=== PATIENT | female | born 1935 | race Caucasian/White ===

== ENCOUNTER 2018-01-05 19:16 | Inpatient (IN) | payer MEDICARE, OTHER, SELFPAY ==
[2018-01-05] VITALS (7 sets, daily range): BP systolic 98–151; BP diastolic 65–77; PULSE 82–98; RESP 18–40; TEMP 36.8–37.5; O2SAT 88–95; BMI 27.4
--- NOTE | 2018-01-05 19:52 | EKG12_ITS ---
Test Reason : SOB Blood Pressure : / mmHG Vent. Rate : 097 BPM Atrial Rate : 097 BPM P-R Int : 136 ms QRS Dur : 076 ms QT Int : 366 ms P-R-T Axes : 010 036 049 degrees QTc Int : 464 ms Normal sinus rhythm Nonspecific ST and T wave abnormality Abnormal ECG Confirmed by NI DAILY, SNEHA ([id number]), book or script editor CLYDE ESTEVES ([id number]) on 01/08/2018 1:10:24 PM Referred By: MARZENA Confirmed By:SNEHA DAN MD
[2018-01-05] MEDS: Ipratropium/Albuterol Sulfate 3 ML AMPUL.NEB INHALATION (20:07)
[2018-01-05] MEDS: Benzonatate 100 MG Capsule 200 MG PO (20:20)
[2018-01-05] MEDS: MethylPREDNISolone 125 MG/2 ML Vial IV (20:20)
[2018-01-05] MEDS: 0.9% Normal Saline 1,000 ML 150 ML IV (20:20)
[2018-01-05 20:36] LABS: Absolute Lymphocyte Count 1.46 X10^3/ul (0.83-4.51); Absolute Neutrophil Count 6.6 X10^3/uL (2.0-7.7); Basophil# 0.02 X10^3/uL; Basophil% 0.2 % (0-1); Eosinophil# 0.12 X10^3/uL; Eosinophils% 1.2 % (0-5); Hematocrit 37.8 % (37-47); Hemoglobin 12.8 g/dl (12.0-15.0); Lymphocyte # 1.46 X10^3/ul (4.0); Lymphocyte % 15.1 % (19-41); Mean Corp Hgb Conc 33.9 g/gl (32-36); Mean Corpuscular Hgb 30.3 pg (27.0-32.0); Mean Corpuscular Volume 89.4 fL (81-99); Mean Platelet Vol. 9.7 fl (6.2-12.0); Monocyte# 1.35 X10^3/uL; Neutrophil # 6.61 X10^3/uL (2.7-7.7); Neutrophil % 68.6 % (47-70); Platelet Count 215 K/mm3 (150-450); RBC Distribution Width CV 12.8 % (11.6-14.6); RBC Distribution Width SD 41.4 fl (35.1-43.9); Red Blood Count 4.23 M/mm3 (4.2-5.4); White Blood Count 9.7 K/mm3 (4.4-11.0)
[2018-01-05 20:39] LABS: POSITIVE COUNT NO; POSITIVE DIFFERENTIAL NO; POSITIVE MORPHOLOGY NO
[2018-01-05 20:55] LABS: Anion Gap 12 (5-15); BUN 24 mg/dL (7-18); BUN/Creat Ratio 15.8 RATIO (10-20); Calcium,Total 8.3 mg/dL (8.5-10.1); Chloride 103 mmol/L (98-107); Creatinine, Serum 1.52 mg/dL (0.55-1.02); EST Glomerular Filtration Rate 35 mL/min (>60); Est Glom Filt Rate - Afr Amer 42 mL/min (>60); Estimated Creatinine Clearance 23.35 ml/min; Glucose 157 mg/dL (74-106); Potassium 3.7 mmol/L (3.5-5.1); Sodium Level 138 mmol/L (136-145)
--- NOTE | 2018-01-05 20:55 | RAD_ITS ---
STUDY: X-RAY CHEST REASON FOR EXAM: Female, 82 years old. Cough, shortness of breath TECHNIQUE: Frontal and lateral views of the chest were obtained. COMPARISON: August 21, 2017 FINDINGS: The lungs are underaerated. There are small benign calcified granulomas in the left apex. There are no focal airspace opacities. There is no demonstrated pleural abnormality. The cardiac silhouette is normal in size. The mediastinum and hilar regions are unremarkable. Normal visualized pulmonary arteries. There is atherosclerotic calcification of the thoracic aorta. There are diffuse degenerative changes of the visualized spine. There are degenerative changes at the acromioclavicular joints bilaterally. There is no demonstrated abnormality of the visualized upper abdomen. RAD/Chest PA and Lateral IMPRESSION: There is no evidence of focal consolidation or pleural effusion. Electronically Signed: Angeli Loco MD at 21:37 EST Tel Direct: [phone], Service support ,
[2018-01-05 21:00] LABS: Lactic Acid 2.6 mmol/L (0.4-2.0)
--- NOTE | 2018-01-05 23:47 | PCM.HP.STD ---
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 (8) Hyperlipidemia Status: Chronic Qualifiers: (9) Obstructive hypertrophic cardiomyopathy Status: Chronic (10) CVA (cerebral vascular accident) Status: Inactive Qualifiers: (11) Depression Status: Chronic Qualifiers: (12) Obstructive sleep apnea Status: Chronic (13) History of TIA (transient ischemic attack) Status: Chronic (14) History of asthma Status: Chronic (15) Hypertension Status: Chronic Qualifiers: (16) Meniere disease Status: Chronic Qualifiers: History of Present Illness Date of Admission: 01/05/18 Chief Complaint: cough and shortness of breath The patient is a 82 year old F had a cough for about 6-8 weeks. Occasionally is productive of clear phlegm. Patient is also been noticing shortness of breath but not necessarily with activity and can be at rest. Patient has been on 2 rounds of doxycycline plus round of prednisone without any relief. Patient presented to the emergency room for further evaluation. In the emergency room, patient was noted to be tachypneic with a respiratory rate into the 20s and a heart rate was steadily in the 90s. She initially was not hypoxic but subsequently did so dropping down to 88% on room air. Patient had a lactic acid drawn that came back at 2.6. Patient received IV fluids for severe sepsis and I was put on Levaquin despite a unremarkable chest x-ray. Patient was also influenza negative. [] Past Medical History Past Medical History (Chronic Problems): Chronic Problems (Last Updated 12/08/17 @ 10:24 by Shannen Daly) Nonrheumatic mitral valve insufficiency (Chronic) Cough (Chronic) History of Wendy fundoplication (Chronic) Stenosis of right vertebral artery (Chronic) Hyperlipidemia (Chronic) Obstructive hypertrophic cardiomyopathy (Chronic) Syncope and collapse (Chronic) History of CVA (cerebrovascular accident) (Chronic) Depression (Chronic) Obstructive sleep apnea (Chronic) History of TIA (transient ischemic attack) (Chronic) History of asthma (Chronic) Hypertension (Chronic) Meniere disease (Chronic) Allergies Penicillins Allergy (Verified 12/15/17 09:14) Rash venom-wasp [Wasp Venom] Allergy (Verified 12/15/17 09:14) Anaphylaxis Xjoqcho-Djf-Axi Reductase Inhibitor Adverse Reaction (Verified 12/15/17 09:14) muscle weakness HORNET Allergy (Uncoded 12/15/17 09:14) Anaphylaxis YELLOW JACKETS Allergy (Uncoded 12/15/17 09:14) Anaphylaxis Home Medications: Ambulatory Orders Medication Instructions Recorded Fluoxetine [Prozac] 20 mg PO QHS 02/11/14 Loratadine [Claritin] 10 mg PO DAILY 02/11/14 Triamcinolone Acetonide [Nasacort] 1 spray NS DAILY 06/01/16 Fluticasone Prop 250 mcg [Flovent 1 puff INHALATION BID 06/24/17 Diskus 250 mcg] Aspirin [Aspirin, Baby] 81 mg PO DAILY@0800 07/13/17 Clopidogrel Bisulfate [Plavix] 75 mg PO DAILY 07/13/17 Pravastatin [Pravachol] 40 mg PO QHS 07/13/17 albuterol sulfate HFA 90 1 puff INHALATION Q4H PRN g 12/08/17 mcg/actuation aerosol inhaler losartan 100 mg tablet 100 mg PO QDAY 12/08/17 meclizine 12.5 mg tablet 12.5 mg PO PRN PRN tab 12/08/17 pantoprazole 40 mg tablet,delayed 40 mg PO PRN PRN 12/08/17 release metoprolol succinate ER 100 mg 100 mg PO QDAY tab 12/15/17 tablet,extended release 24 hr Surgical History: appendectomy, cholecystectomy, herniorrhaphy, - - Bilateral total knee replacement, bilateral carpal tunnel surgery, hiatal hernia repair. 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 Denies: Difficulty Hearing, Ear Pain, Eye Pain, Hard of Hearing Cardiovascular: Denies: Chest Pain, Palpitations Respiratory: Reports: Cough, Shortness of Breath, Sputum production Gastrointestinal: Denies: Abdominal Pain, Nausea, Vomiting Genitourinary: Denies: Dysuria, Incontinence Musculoskeletal: Denies: Joint Pain, Joint Tenderness Skin: Denies: Rash, Wounds Neurological: Denies: Numbness, Tingling, Focal weakness Psychiatric: Reports: Depression. Denies: Anxiety Hematologic/ Lymphatic: Denies: Easy Bruising, Easy Bleeding, Hx of blood clot VTE Information - Inpt Only VTE Present on Admission: No VTE Pharm Prophylaxis ordered?: Yes Patient Problems: Active and Suspected Problems (Last Updated 12/08/17 @ 10:24 by Shannen Daly) Severe sepsis (Acute) Sinusitis (Acute) Acute bronchitis (Acute) Acute respiratory failure with hypoxia (Acute) - Physical Exam General: Alert, Cooperative, No apparent distress HEENT: Atraumatic, Normocephalic, - - Bilateral maxillary sinus tenderness Oral: Moist Mucosa, No Gingival or Mucosal Lesions/ Ulcerations Neck: No Nodes, Thyroid Normal Size and Texture Lungs: Normal air movement, Wheezes Cardiovascular: Regular rate, Regular Rhythm, Normal S1, Normal S2, No murmurs Abdomen: Bowel Sounds Present, Soft, Non Tender, Non-Distended, No Hepato-splenomegaly Extremities: No edema, No Calf Tenderness Skin: No rashes, No breakdown Musculoskeletal: No Tenderness to Palpation of Joints or Extremities, No Muscle Wasting Neurological: Neuro grossly intact, Muscle tone normal, Sensory exam intact to light touch and pain Psych/Mental Status: Normal Affect, Appropriate Vital Signs Temp Pulse Resp BP Pulse Ox 36.8 C 82 24 H 141/67 H 92 01/05/18 19:17 01/05/18 23:08 01/05/18 23:08 01/05/18 23:08 01/05/18 23:08 Oxygen Flow Rate 2 Oxygen Delivery Method Nasal Cannula Weight: 68.039 kg Body Mass Index (BMI) 27.4 Finger Stick Blood Glucose 173 Laboratory Tests Past 24 Hrs 01/05/18 01/05/18 01/05/18 20:15 20:15 20:15 WBC 9.7 RBC 4.23 Hgb 12.8 Hct 37.8 MCV 89.4 MCH 30.3 MCHC 33.9 RDW 12.8 RDW Differential 41.4 Plt Count 215 MPV 9.7 Immature Gran % (Auto) 0.900 Neut % (Auto) 68.6 Lymph % (Auto) 15.1 L [place] % (Auto) 14.0 H Eos % (Auto) 1.2 Baso % (Auto) 0.2 Absolute Neuts (auto) 6.6 Absolute Lymphs (auto) 1.46 Total Counted Not Reportable Sodium 138 Potassium 3.7 Chloride 103 Carbon Dioxide 23.0 Anion Gap 12 BUN 24 H Creatinine 1.52 H Estim Creat Clear Calc 23.35 Est GFR (MDRD) Af Amer 42 L Est GFR (MDRD) Non-Af 35 L BUN/Creatinine Ratio 15.8 Glucose 157 H Lactic Acid 2.6 H Calcium 8.3 L Clinical Impression(s) from Imaging Studies Chest X-Ray 01/05/18 20:55 IMPRESSION: There is no evidence of focal consolidation or pleural effusion. Electronically Signed: Angeli Loco MD at 21:37 EST Tel Direct: [phone], Service support , Assessment/Plan Active and Suspected Problems (Last Updated 12/08/17 @ 10:24 by Shannen Daly) Severe sepsis (Acute) Sinusitis (Acute) Acute bronchitis (Acute) Acute respiratory failure with hypoxia (Acute) 1. Severe sepsis Based on a heart rate greater than 90 and respiratory rate greater than 20+ lactic acidosis of 2.6. Source is not clear but I suspect the patient may have some underlying sinusitis and/or bronchitis Patient be on IV fluids and will repeat lactic acid 2. Acute sinusitis Symptoms may have been going on for about a month and a half now. Patient had been on 2 rounds of doxycycline which have been ineffective for her. Recommended that patient continue the Levaquin that she was already given in the emergency room. And based on her response likely would require antibiotics for 10-14 days 3. acute hypoxic respiratory failure I suspect this is related with the patient's bronchitis and possible with her underlying asthma. Bronchodilators plus steroids [place] pulse ox prior to discharge if patient is still requiring oxygen. 4. Acute bronchitis Continue with steroids and bronchodilators. 5. History of stroke, M?ni?re's disease, lipidemia: Comp getting care but otherwise stable. 6. DT prophylaxis with Lovenox 7. CODE STATUS: Addressed with patient. Asked patient if she would want to have CPR endotracheal intubation of the event of cardiac and respiratory arrest, respectively. Patient is unsure but would go along with those if becomes necessary during this hospitalization. Therefore, patient is full CODE STATUS at this time. Occurs the patient and her daughter and other family to discuss these situations and others in the future. Discussed with the patient's daughter at bedside. Code Visit Inpatient E&M: 15034 Init Hosp L3
--- NOTE | 2018-01-05 23:56 | ED.DCSUM_ITS ---
- ER Visit Summary Date of Service: 01/05/18 Chief Complaint: Cough History of Present Illness: The patient is a [address] Mcneill. She reports that she has a cough began November 19. She reports that it is sometimes productive clear sputum without blood. She denies any fever or chills. She reports that she has chest pain with coughing only. She has moderate to severe shortness of breath it is worse with walking. Patient reports that she was seen by a physician and placed on an inhaler and prednisone. She has not had any relief from this. She finished prednisone yesterday. She also finished doxycycline yesterday. She has not had a chest x- ray. Physical Examination: Vitals: 88.3, 136/65, 98, 40, 95% room air which is not hypoxic. General: Well-nourished and well-developed. Head: Normocephalic atraumatic. Neck: Supple, no lymphadenopathy. No JVD. Nontender. Cardiovascular: Regular rate and rhythm. No murmurs. Respiratory: No respiratory distress. Mild wheezing bilaterally with good air movement. Abdominal: Soft, nontender, nondistended, normal bowel sounds. No guarding, rebound, or peritoneal signs. Back: Nontender. Extremities: Nontender, no edema. Skin: Normal color, no rash. Neurologic: Alert and oriented ?3. Cranial nerves II through XII are intact. Normal strength and sensation. Psych: Normal affect. Test Results: EKG is sinus at [address] changes and artifact. Chest x-ray shows chronic changes and a poor inspiration. CBC is more for lymphocytes 15 monocytes 14. Chem-7 is marked for BUN of 24, creatinine 1.52, glucose 57. Lactic acid is 2.6. Influenza was negative. Emergency Department Course and Treatment: Sent was treated with albuterol Atrovent aerosols. She is given Solu-Medrol IV and Tessalon Perles p.o. During stay in the emergency department her pulse ox decreased from 95% on room air to 88% on room air. She is 91% on 2 L nasal cannula. Treatment Plan: Patient has SIRS criteria and an elevated lactic acidosis. Despite the fact that her chest x-ray does not show a pneumonia she is given Levaquin and treated for severe sepsis. Patient was discussed Dr. Rhodes. She will be admitted to the hospital for their wish and treatment. Disposition: Admitted in serious condition. Impression: 1. Severe sepsis. 2. Hypoxia. 3. URI. 4. Acute on chronic renal insufficiency. This note was generated with [employer] dictation software. It may contain incorrect words, spelling, and punctuation that were not noted in review of the chart prior to signing ED Disposition - Plan for ED Patient: Chief Complaint: Shortness of Breath Referrals: Pat Mcneill MD [Primary Care Provider] -
--- NOTE | 2018-01-05 23:57 | HP.PCM_ITS ---
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 (8) Hyperlipidemia Status: Chronic Qualifiers: (9) Obstructive hypertrophic cardiomyopathy Status: Chronic (10) CVA (cerebral vascular accident) Status: Inactive Qualifiers: (11) Depression Status: Chronic Qualifiers: (12) Obstructive sleep apnea Status: Chronic (13) History of TIA (transient ischemic attack) Status: Chronic (14) History of asthma Status: Chronic (15) Hypertension Status: Chronic Qualifiers: (16) Meniere disease Status: Chronic Qualifiers: History of Present Illness Date of Admission: 01/05/18 Chief Complaint: cough and shortness of breath The patient is a 82 year old F had a cough for about 6-8 weeks. Occasionally is productive of clear phlegm. Patient is also been noticing shortness of breath but not necessarily with activity and can be at rest. Patient has been on 2 rounds of doxycycline plus round of prednisone without any relief. Patient presented to the emergency room for further evaluation. In the emergency room, patient was noted to be tachypneic with a respiratory rate into the 20s and a heart rate was steadily in the 90s. She initially was not hypoxic but subsequently did so dropping down to 88% on room air. Patient had a lactic acid drawn that came back at 2.6. Patient received IV fluids for severe sepsis and I was put on Levaquin despite a unremarkable chest x-ray. Patient was also influenza negative. [] Past Medical History Past Medical History (Chronic Problems): Chronic Problems (Last Updated 12/08/17 @ 10:24 by Shannen Daly) Nonrheumatic mitral valve insufficiency (Chronic) Cough (Chronic) History of Wendy fundoplication (Chronic) Stenosis of right vertebral artery (Chronic) Hyperlipidemia (Chronic) Obstructive hypertrophic cardiomyopathy (Chronic) Syncope and collapse (Chronic) History of CVA (cerebrovascular accident) (Chronic) Depression (Chronic) Obstructive sleep apnea (Chronic) History of TIA (transient ischemic attack) (Chronic) History of asthma (Chronic) Hypertension (Chronic) Meniere disease (Chronic) Allergies Penicillins Allergy (Verified 12/15/17 09:14) Rash venom-wasp [Wasp Venom] Allergy (Verified 12/15/17 09:14) Anaphylaxis Mnryqwe-Nsp-Nyu Reductase Inhibitor Adverse Reaction (Verified 12/15/17 09:14) muscle weakness HORNET Allergy (Uncoded 12/15/17 09:14) Anaphylaxis YELLOW JACKETS Allergy (Uncoded 12/15/17 09:14) Anaphylaxis Home Medications: Ambulatory Orders Medication Instructions Recorded Fluoxetine [Prozac] 20 mg PO QHS 02/11/14 Loratadine [Claritin] 10 mg PO DAILY 02/11/14 Triamcinolone Acetonide [Nasacort] 1 spray NS DAILY 06/01/16 Fluticasone Prop 250 mcg [Flovent 1 puff INHALATION BID 06/24/17 Diskus 250 mcg] Aspirin [Aspirin, Baby] 81 mg PO DAILY@0800 07/13/17 Clopidogrel Bisulfate [Plavix] 75 mg PO DAILY 07/13/17 Pravastatin [Pravachol] 40 mg PO QHS 07/13/17 albuterol sulfate HFA 90 1 puff INHALATION Q4H PRN g 12/08/17 mcg/actuation aerosol inhaler losartan 100 mg tablet 100 mg PO QDAY 12/08/17 meclizine 12.5 mg tablet 12.5 mg PO PRN PRN tab 12/08/17 pantoprazole 40 mg tablet,delayed 40 mg PO PRN PRN 12/08/17 release metoprolol succinate ER 100 mg 100 mg PO QDAY tab 12/15/17 tablet,extended release 24 hr Surgical History: appendectomy, cholecystectomy, herniorrhaphy, - - Bilateral total knee replacement, bilateral carpal tunnel surgery, hiatal hernia repair. 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 Denies: Difficulty Hearing, Ear Pain, Eye Pain, Hard of Hearing Cardiovascular: Denies: Chest Pain, Palpitations Respiratory: Reports: Cough, Shortness of Breath, Sputum production Gastrointestinal: Denies: Abdominal Pain, Nausea, Vomiting Genitourinary: Denies: Dysuria, Incontinence Musculoskeletal: Denies: Joint Pain, Joint Tenderness Skin: Denies: Rash, Wounds Neurological: Denies: Numbness, Tingling, Focal weakness Psychiatric: Reports: Depression. Denies: Anxiety Hematologic/ Lymphatic: Denies: Easy Bruising, Easy Bleeding, Hx of blood clot VTE Information - Inpt Only VTE Present on Admission: No VTE Pharm Prophylaxis ordered?: Yes Patient Problems: Active and Suspected Problems (Last Updated 12/08/17 @ 10:24 by Shannen Daly) Severe sepsis (Acute) Sinusitis (Acute) Acute bronchitis (Acute) Acute respiratory failure with hypoxia (Acute) - Physical Exam General: Alert, Cooperative, No apparent distress HEENT: Atraumatic, Normocephalic, - - Bilateral maxillary sinus tenderness Oral: Moist Mucosa, No Gingival or Mucosal Lesions/ Ulcerations Neck: No Nodes, Thyroid Normal Size and Texture Lungs: Normal air movement, Wheezes Cardiovascular: Regular rate, Regular Rhythm, Normal S1, Normal S2, No murmurs Abdomen: Bowel Sounds Present, Soft, Non Tender, Non-Distended, No Hepato- splenomegaly Extremities: No edema, No Calf Tenderness Skin: No rashes, No breakdown Musculoskeletal: No Tenderness to Palpation of Joints or Extremities, No Muscle Wasting Neurological: Neuro grossly intact, Muscle tone normal, Sensory exam intact to light touch and pain Psych/Mental Status: Normal Affect, Appropriate Vital Signs Temp Pulse Resp BP Pulse Ox 36.8 C 82 24 H 141/67 H 92 01/05/18 19:17 01/05/18 23:08 01/05/18 23:08 01/05/18 23:08 01/05/18 23:08 Oxygen Flow Rate 2 Oxygen Delivery Method Nasal Cannula Weight: 68.039 kg Body Mass Index (BMI) 27.4 Finger Stick Blood Glucose 173 Laboratory Tests Past 24 Hrs 01/05/18 01/05/18 01/05/18 20:15 20:15 20:15 WBC 9.7 RBC 4.23 Hgb 12.8 Hct 37.8 MCV 89.4 MCH 30.3 MCHC 33.9 RDW 12.8 RDW Differential 41.4 Plt Count 215 MPV 9.7 Immature Gran % (Auto) 0.900 Neut % (Auto) 68.6 Lymph % (Auto) 15.1 L [place] % (Auto) 14.0 H Eos % (Auto) 1.2 Baso % (Auto) 0.2 Absolute Neuts (auto) 6.6 Absolute Lymphs (auto) 1.46 Total Counted Not Reportable Sodium 138 Potassium 3.7 Chloride 103 Carbon Dioxide 23.0 Anion Gap 12 BUN 24 H Creatinine 1.52 H Estim Creat Clear Calc 23.35 Est GFR (MDRD) Af Amer 42 L Est GFR (MDRD) Non-Af 35 L BUN/Creatinine Ratio 15.8 Glucose 157 H Lactic Acid 2.6 H Calcium 8.3 L Clinical Impression(s) from Imaging Studies Chest X-Ray 01/05/18 20:55 IMPRESSION: There is no evidence of focal consolidation or pleural effusion. Electronically Signed: Angeli Loco MD at 21:37 EST Tel Direct: [phone], Service support , Assessment/Plan Active and Suspected Problems (Last Updated 12/08/17 @ 10:24 by Shannen Daly) Severe sepsis (Acute) Sinusitis (Acute) Acute bronchitis (Acute) Acute respiratory failure with hypoxia (Acute) 1. Severe sepsis * Based on a heart rate greater than 90 and respiratory rate greater than 20+ lactic acidosis of 2.6. * Source is not clear but I suspect the patient may have some underlying sinusitis and/or bronchitis * Patient be on IV fluids and will repeat lactic acid 2. Acute sinusitis * Symptoms may have been going on for about a month and a half now. Patient had been on 2 rounds of doxycycline which have been ineffective for her. Recommended that patient continue the Levaquin that she was already given in the emergency room. And based on her response likely would require antibiotics for 10-14 days 3. acute hypoxic respiratory failure * I suspect this is related with the patient's bronchitis and possible with her underlying asthma. * Bronchodilators plus steroids * [place] pulse ox prior to discharge if patient is still requiring oxygen. 4. Acute bronchitis * Continue with steroids and bronchodilators. 5. History of stroke, M?ni?re's disease, lipidemia: Comp getting care but otherwise stable. 6. DT prophylaxis with Lovenox 7. CODE STATUS: Addressed with patient. Asked patient if she would want to have CPR endotracheal intubation of the event of cardiac and respiratory arrest , respectively. Patient is unsure but would go along with those if becomes necessary during this hospitalization. Therefore, patient is full CODE STATUS at this time. Occurs the patient and her daughter and other family to discuss these situations and others in the future. Discussed with the patient's daughter at bedside. Code Visit Inpatient E&M: 48461 Init Hosp L3
[2018-01-06] VITALS (22 sets, daily range): BP systolic 101–148; BP diastolic 58–83; PULSE 68–141; RESP 18; TEMP 36.5–36.9; O2SAT 90–98; BMI 27.2
[2018-01-06 00:28] LABS: Reflex Lactate? Y
[2018-01-06] MEDS: 0.9% Normal Saline 1,000 ML 150 ML IV (01:36)
[2018-01-06 05:39] LABS: Hematocrit 36.8 % (37-47); Hemoglobin 12.5 g/dl (12.0-15.0); Mean Corpuscular Hgb 30.4 pg (27.0-32.0); Mean Corpuscular Volume 89.5 fL (81-99); Mean Platelet Vol. 9.7 fl (6.2-12.0); Platelet Count 201 K/mm3 (150-450); RBC Distribution Width CV 12.5 % (11.6-14.6); RBC Distribution Width SD 40.1 fl (35.1-43.9); Red Blood Count 4.11 M/mm3 (4.2-5.4); White Blood Count 7.3 K/mm3 (4.4-11.0)
[2018-01-06 05:47] LABS: Scan Indicated on CBC? Y/N NO
[2018-01-06 06:06] LABS: Anion Gap 13 (5-15); BUN 21 mg/dL (7-18); BUN/Creat Ratio 16.4 RATIO (10-20); Calcium,Total 7.8 mg/dL (8.5-10.1); Chloride 106 mmol/L (98-107); Creatinine, Serum 1.28 mg/dL (0.55-1.02); EST Glomerular Filtration Rate 43 mL/min (>60); Est Glom Filt Rate - Afr Amer 52 mL/min (>60); Estimated Creatinine Clearance 27.72 ml/min; Glucose 161 mg/dL (74-106); Potassium 3.7 mmol/L (3.5-5.1); Sodium Level 137 mmol/L (136-145)
[2018-01-06 06:09] LABS: Bacteria 0 SEEN /hpf (None Seen); Mucous, Urine 0 SEEN /hpf (<or=2+); Red Blood Cells-Urine 0 SEEN /hpf (0-5); White Blood Cells 0 SEEN /hpf (0-5)
[2018-01-06 06:17] LABS: Color, Urine Yellow (Yellow); Glucose, Dipstick Normal (Normal); Ketone-Dipstick Negative (Negative); Leukocyte Esterase-Dipstick Negative /ul (Negative); Nitrite-Dipstick Negative (Negative); Occult Blood-Urine Negative /ul (Negative); Protein-Dipstick Negative (Negative); Specific Gravity, Urine 1.005 (1.002-1.030); Urine Bilirubin Dipstick Negative (Negative); Urine Clarity Clear (Clear); Urine Urobilinogen Normal (Normal); Urine pH 6.5 (5.0 - 8.0)
[2018-01-06 06:22] LABS: Squamous Epithelial Cells - UA 0-5 SEEN /hpf (5-10)
[2018-01-06] MEDS: Ipratropium/Albuterol Sulfate 3 ML AMPUL.NEB INHALATION ×4 (06:45→19:56)
[2018-01-06] MEDS: Aspirin 81 MG TAB.CHEW PO (07:53)
[2018-01-06 08:17] LABS: Lactic Acid 1.4 mmol/L (0.4-2.0)
[2018-01-06] MEDS: Clopidogrel Bisulfate 75 MG Tablet PO (09:53)
[2018-01-06] MEDS: Losartan Potassium 100 MG Tablet PO (09:53)
[2018-01-06] MEDS: Enoxaparin 30 MG/0.3 ML Syringe SC (09:53)
[2018-01-06] MEDS: Metoprolol(XL)Succ 100 MG Tablet PO (09:53)
[2018-01-06] MEDS: Loratadine 10 MG Tablet PO (09:53)
[2018-01-06] MEDS: Fluticasone 0.05% 1 SPRAY NASAL.SRY 2 SPRAY NASAL (09:54)
--- NOTE | 2018-01-06 11:52 | PCM.PROGNOTE ---
<Kristopher Hamilton - Last Filed: 01/06/18 11:52> Patient Problems: Active and Suspected Problems (Last Updated 12/08/17 @ 10:24 by Shannen Daly) Severe sepsis (Acute) Sinusitis (Acute) Acute bronchitis (Acute) Acute respiratory failure with hypoxia (Acute) Subjective: Pt complains of cough, mucus production, and frontal sinus pressure. She is also SOB and wheezy. She states she has asthma, no COPD. She smoked for a few years but quit over 40 years ago. She does not normally use O2 at home. She failed outpatient treatment with doxy and prednisone from her concrete craftsman at the [facility] twice. No fever or chills. - Physical Exam General: Alert, Oriented x3, Cooperative HEENT: Atraumatic, PERRLA, EOMI, Normocephalic, TM's Clear Neck: Supple, No JVD, Negative Carotid Bruits Lungs: Diminished, Wheezes - severe expiratory Cardiovascular: Regular rate, No murmurs Abdomen: Bowel Sounds Present, Soft, Non Tender Extremities: No edema, Capillary Refill Less than 3 Seconds Skin: No rashes, No breakdown Musculoskeletal: No Tenderness to Palpation of Joints or Extremities Neurological: Cranial nerves II-XII grossly intact Psych/Mental Status: Normal Affect, Appropriate, Alert and oriented to time, place, person, mood and affect Vital Signs Temp Pulse Resp BP Pulse Ox 98.3 F 141 H 18 148/70 H 98 01/06/18 09:50 01/06/18 11:16 01/06/18 10:43 01/06/18 09:53 01/06/18 09:50 Oxygen Flow Rate 3 Oxygen Delivery Method Nasal Cannula Weight: 67.5 kg Body Mass Index (BMI) 27.2 Intake and Output for Last 24 Hours 01/04/18 01/05/18 01/06/18 23:59 23:59 23:59 Intake Total 873 / 873 Output Total 800 / 800 Balance 73 / 73 Laboratory Tests Past 24 Hrs 01/06/18 01/06/18 01/06/18 00:50 05:20 05:20 WBC 7.3 RBC 4.11 L Hgb 12.5 Hct 36.8 L MCV 89.5 MCH 30.4 MCHC 34.0 RDW 12.5 RDW Differential 40.1 Plt Count 201 MPV 9.7 Sodium 137 Potassium 3.7 Chloride 106 Carbon Dioxide 18.0 L Anion Gap 13 BUN 21 H Creatinine 1.28 H Estim Creat Clear Calc 27.72 Est GFR (MDRD) Af Amer 52 L Est GFR (MDRD) Non-Af 43 L BUN/Creatinine Ratio 16.4 Glucose 161 H Lactic Acid 2.0 Calcium 7.8 L Urine Color Urine Clarity Urine pH Ur Specific [place] Urine Protein Urine Glucose (UA) Urine Ketones Urine Occult Blood Urine Nitrite Urine Bilirubin Urine Urobilinogen Ur Leukocyte Esterase Urine RBC Urine WBC Ur Squamous Epith Cells Urine Bacteria Urine Mucus 01/06/18 01/06/18 05:56 07:45 WBC RBC Hgb Hct MCV MCH MCHC RDW RDW Differential Plt Count MPV Sodium Potassium Chloride Carbon Dioxide Anion Gap BUN Creatinine Estim Creat Clear Calc Est GFR (MDRD) Af Amer Est GFR (MDRD) Non-Af BUN/Creatinine Ratio Glucose Lactic Acid 1.4 Calcium Urine Color Yellow Urine Clarity Clear Urine pH 6.5 Ur Specific [place] 1.005 Urine Protein Negative Urine Glucose (UA) Normal Urine Ketones Negative Urine Occult Blood Negative Urine Nitrite Negative Urine Bilirubin Negative Urine Urobilinogen Normal Ur Leukocyte Esterase Negative Urine RBC 0 SEEN Urine WBC 0 SEEN Ur Squamous Epith Cells 0-5 SEEN Urine Bacteria 0 SEEN Urine Mucus 0 SEEN Assessment/Plan Active and Suspected Problems (Last Updated 12/08/17 @ 10:24 by Shannen Daly) Severe sepsis (Acute) Sinusitis (Acute) Acute bronchitis (Acute) Acute respiratory failure with hypoxia (Acute) Acute severe sepsis 2/2 acute bronchitis/sinusitis - Lactate resolved. No fever or white count. She continues to have a cough and frontal sinus pressure. Viral vs bacterial etiology, vs sepsis criteria met 2/2 asthma exacerbation and hypoxia. Continue levaquin. Failed 2 courses of doxy and outpatient prednisone. CXR negative. Wheezy on exam. UA neg. Respiratory panel pending. Blood/sputum cultures pending. 2. Acute hypoxia 2/2 acute asthma exacerbation - still requiring 3 lpm O2. Does not use at home. will start IV solumedrol. Incentive spirometer. Duonebs. This may be the etiology of her elevated lactate rather than sepsis. 3. JACQUELYN - improved. Continue IV fluids. 4. Hx CVA - on asa / statin / plavix 5. HTN - home meds. DVT ppx: lovenox DC planning: may need home O2. This patient was seen by Kristopher Hamilton PA-C under the supervision of Doctor Yossi. <Batsheva Sy E - Last Filed: 01/06/18 14:14> - Physical Exam Vital Signs Temp Pulse Resp BP Pulse Ox 98.3 F 141 H 18 148/70 H 98 01/06/18 09:50 01/06/18 11:16 01/06/18 10:43 01/06/18 09:53 01/06/18 09:50 Oxygen Flow Rate 3 Oxygen Delivery Method Nasal Cannula Weight: 148 lb 12.992 oz Body Mass Index (BMI) 27.2 Intake and Output for Last 24 Hours 01/04/18 01/05/18 01/06/18 23:59 23:59 23:59 Intake Total 1764 / 1764 Output Total 1050 / 1050 Balance 714 / 714 Laboratory Tests Past 24 Hrs 01/06/18 01/06/18 01/06/18 00:50 05:20 05:20 WBC 7.3 RBC 4.11 L Hgb 12.5 Hct 36.8 L MCV 89.5 MCH 30.4 MCHC 34.0 RDW 12.5 RDW Differential 40.1 Plt Count 201 MPV 9.7 Sodium 137 Potassium 3.7 Chloride 106 Carbon Dioxide 18.0 L Anion Gap 13 BUN 21 H Creatinine 1.28 H Estim Creat Clear Calc 27.72 Est GFR (MDRD) Af Amer 52 L Est GFR (MDRD) Non-Af 43 L BUN/Creatinine Ratio 16.4 Glucose 161 H Lactic Acid 2.0 Calcium 7.8 L Urine Color Urine Clarity Urine pH Ur Specific [place] Urine Protein Urine Glucose (UA) Urine Ketones Urine Occult Blood Urine Nitrite Urine Bilirubin Urine Urobilinogen Ur Leukocyte Esterase Urine RBC Urine WBC Ur Squamous Epith Cells Urine Bacteria Urine Mucus 01/06/18 01/06/18 05:56 07:45 WBC RBC Hgb Hct MCV MCH MCHC RDW RDW Differential Plt Count MPV Sodium Potassium Chloride Carbon Dioxide Anion Gap BUN Creatinine Estim Creat Clear Calc Est GFR (MDRD) Af Amer Est GFR (MDRD) Non-Af BUN/Creatinine Ratio Glucose Lactic Acid 1.4 Calcium Urine Color Yellow Urine Clarity Clear Urine pH 6.5 Ur Specific [place] 1.005 Urine Protein Negative Urine Glucose (UA) Normal Urine Ketones Negative Urine Occult Blood Negative Urine Nitrite Negative Urine Bilirubin Negative Urine Urobilinogen Normal Ur Leukocyte Esterase Negative Urine RBC 0 SEEN Urine WBC 0 SEEN Ur Squamous Epith Cells 0-5 SEEN Urine Bacteria 0 SEEN Urine Mucus 0 SEEN Assessment/Plan Hospitalist note: I am seeing this patient in conjunction with Kristopher Hamilton. I independently seen and examined the patient. Progress note above, laboratory data and imaging studies reviewed. I agree with the above treatment plan. Patient seen and examined. She reported mild improvement of her shortness of breath, still on oxygen at 3 L. She reported productive cough. Denies fever chills. Denied chest pain. Afebrile, blood pressure stable. Pulse ox is 98% on 3 L. - Physical Exam General: Alert, Oriented x3, Cooperative, mildly short of breath. HEENT: Atraumatic, PERRLA, EOMI. Neck: Supple, No JVD, Negative Carotid Bruits, Trachea Midline, Thyroid Normal. Lungs: Decreased breath sounds bilateral, occasional wheezes, rhonchi. No crackles, mildly short of breath. Cardiovascular: Regular rate, Regular Rhythm, Normal S1, Normal S2, PMI Normal. Abdomen: Bowel Sounds Present, Soft, Non Tender, Non-Distended, No Hepato-splenomegaly. Extremities: No clubbing, No cyanosis, No edema Skin: No rashes, No breakdown Neurological: Neuro grossly intact Assessment and plan: #1 severe sepsis: Attributed to acute bronchitis and sinusitis. She is on IV Levaquin. Blood and urine cultures are pending. #2 acute bronchitis/acute asthma exacerbation: Probably triggered by viral infection, on IV Levaquin empirically as well as for acute sinusitis. She is on bronchodilators. Chest x-ray showed no acute infiltrate or consolidation. Respiratory panel for viruses pending. #3 acute sinusitis: With failure of outpatient therapy, patient was on doxycycline for 10 days without improvement. She is on Levaquin at this time. Will do x-ray of the sinuses. #4 acute hypoxic respiratory failure: Continue bronchitis as well as acute asthma exacerbation. Patient is well known case of bronchial asthma. She would be started on IV steroids, continue IV Levaquin as well as bronchodilators. Plan as above. #5 other chronic medical problems: Stable, continue current medications as above. This note was generated with Evoleroation software. It may contain incorrect words, spelling, and punctuation that were not noted in checking the note before signing. Code Visit Inpatient E&M: 24102 Subs Hosp L2
--- NOTE | 2018-01-06 14:58 | RAD_ITS ---
STUDY: X-RAY - PARANASAL SINUSES REASON FOR EXAM: Female, 82 years old. Cough TECHNIQUE: Three view(s) of the paranasal sinuses were obtained. COMPARISON: None. FINDINGS: The frontal sinuses are small but well aerated. The remaining visualized sinuses are well aerated. Normal visualized facial bones. The soft tissue structures are unremarkable. RAD/Sinuses min 3 Views IMPRESSION: There is no radiographic evidence of acute sinusitis. Electronically Signed: Angeli Loco MD at 18:45 EST Tel Direct: [phone], Service support ,
[2018-01-06] MEDS: 0.9% NaCl Peripheral Flush Adult/Peds IV ×2 (15:54→22:04)
[2018-01-06] MEDS: Acetaminophen 325 MG Tablet 650 MG PO ×2 (16:00→22:11)
[2018-01-06] MEDS: BENZOCAINE/MENTHOL 1 LOZENGE 2 LOZENGE MUCOUS MEM (20:46)
[2018-01-06] MEDS: Pravastatin 40 MG Tablet PO (22:04)
[2018-01-06] MEDS: FLUoxetine 20 MG Capsule PO (22:04)
[2018-01-07] VITALS (16 sets, daily range): BP systolic 131–164; BP diastolic 64–78; PULSE 66–97; RESP 16–18; TEMP 36.6–37.1; O2SAT 94–97
[2018-01-07] MEDS: 0.9% NaCl Peripheral Flush Adult/Peds IV ×2 (05:25→13:52)
[2018-01-07 05:56] LABS: Anion Gap 11 (5-15); BUN 24 mg/dL (7-18); BUN/Creat Ratio 17.8 RATIO (10-20); Calcium,Total 8.3 mg/dL (8.5-10.1); Chloride 106 mmol/L (98-107); Creatinine, Serum 1.35 mg/dL (0.55-1.02); EST Glomerular Filtration Rate 40 mL/min (>60); Est Glom Filt Rate - Afr Amer 49 mL/min (>60); Estimated Creatinine Clearance 26.29 ml/min; Glucose 171 mg/dL (74-106); Potassium 3.6 mmol/L (3.5-5.1); Sodium Level 140 mmol/L (136-145)
[2018-01-07] MEDS: Ipratropium/Albuterol Sulfate 3 ML AMPUL.NEB INHALATION ×4 (07:28→18:49)
[2018-01-07] MEDS: Aspirin 81 MG TAB.CHEW PO (08:06)
[2018-01-07] MEDS: Loratadine 10 MG Tablet PO (09:54)
[2018-01-07] MEDS: Metoprolol(XL)Succ 100 MG Tablet PO (09:55)
[2018-01-07] MEDS: Losartan Potassium 100 MG Tablet PO (09:55)
[2018-01-07] MEDS: Clopidogrel Bisulfate 75 MG Tablet PO (09:55)
[2018-01-07] MEDS: Fluticasone 0.05% 1 SPRAY NASAL.SRY 2 SPRAY NASAL (09:56)
[2018-01-07] MEDS: Enoxaparin 30 MG/0.3 ML Syringe SC (09:59)
--- NOTE | 2018-01-07 12:03 | PN_ITS ---
<Kristopher Hamilton - Last Filed: 01/07/18 11:55> Patient Problems: Active and Suspected Problems (Last Updated 12/08/17 @ 10:24 by Shannen Daly) Severe sepsis (Acute) Sinusitis (Acute) Acute bronchitis (Acute) Acute respiratory failure with hypoxia (Acute) Subjective: Patient continues to improve. Tested + for Flu A yesterday. Her wheezing is less severe and her O2 requirement has decreased. She is less SOB but still somewhat SOB even at rest and with exertion to the bathroom. She has a non productive cough. She has no edema, chest pain, or lightheadedness. She does not use O2 at home. She is very nervous about discharge and feels that she needs another night in the hospital. - Physical Exam General: Alert, Oriented x3, Cooperative HEENT: Atraumatic, PERRLA, EOMI, Normocephalic Neck: Supple, No JVD, Negative Carotid Bruits Lungs: Normal air movement, Wheezes - faint end expiratory left field > right Cardiovascular: Regular rate, No murmurs Abdomen: Bowel Sounds Present, Soft, Non Tender Extremities: No edema, Capillary Refill Less than 3 Seconds Skin: No rashes, No breakdown Musculoskeletal: No Tenderness to Palpation of Joints or Extremities Neurological: Cranial nerves II-XII grossly intact Psych/Mental Status: Normal Affect, Appropriate, Alert and oriented to time, place, person, mood and affect Vital Signs Temp Pulse Resp BP Pulse Ox 98.5 F 93 16 131/68 H 97 01/07/18 11:31 01/07/18 11:31 01/07/18 11:31 01/07/18 11:31 01/07/18 11:31 Oxygen Flow Rate 1 Oxygen Delivery Method Nasal Cannula Weight: 67.5 kg Body Mass Index (BMI) 27.2 Intake and Output for Last 24 Hours 01/05/18 01/06/18 01/07/18 23:59 23:59 23:59 Intake Total 2244 / 2244 360 / 360 Output Total 1550 / 1550 500 / 500 Balance 694 / 694 -140 / -140 Microbiology Past 72 Hours 01/06/18 05:56 Urine Culture - Preliminary Urine, Clean Catch Culture exhibits no growth. 01/06/18 11:03 Respiratory Panel (PCR) - Final Mucosa - Nose Influenza A (Subtype H3) Laboratory Tests Past 24 Hrs 01/07/18 05:00 Sodium 140 Potassium 3.6 Chloride 106 Carbon Dioxide 23.0 Anion Gap 11 BUN 24 H Creatinine 1.35 H Estim Creat Clear Calc 26.29 Est GFR (MDRD) Af Amer 49 L Est GFR (MDRD) Non-Af 40 L BUN/Creatinine Ratio 17.8 Glucose 171 H Calcium 8.3 L Assessment/Plan Active and Suspected Problems (Last Updated 12/08/17 @ 10:24 by Shannen Daly) Severe sepsis (Acute) Sinusitis (Acute) Acute bronchitis (Acute) Acute respiratory failure with hypoxia (Acute) Acute severe sepsis 2/2 acute Influenza A with bronchitis- tamiflu not indicated as she has been sick for weeks. DC Levaquin. Lactate resolved. No fever or white count. She continues to have a cough and frontal sinus pressure. Viral vs bacterial etiology, vs sepsis criteria met 2/2 asthma exacerbation and hypoxia. Failed 2 courses of doxy and outpatient prednisone. CXR negative. Wheezing has improved. UA neg. Respiratory panel pending. Blood/sputum cultures pending. 2. Acute hypoxia 2/2 acute asthma exacerbation - continue to Wean. Does not use at home. Continue IV solumedrol. Incentive spirometer. Duonebs. 3. JACQUELYN -creatinine bumped, will add gentle IV hydration. 4. Hx CVA - on asa / statin / plavix 5. HTN - home meds. DVT ppx: lovenox DC planning: may need home O2, she is improving however she is nervous about discharge as she still feels unwell, we will continue to monitor overnight.. This patient was seen by Kristopher Hamilton PA-C under the supervision of Doctor Sy. <Batsheva Sy - Last Filed: 01/07/18 14:06> - Physical Exam Vital Signs Temp Pulse Resp BP Pulse Ox 98.5 F 93 16 131/68 H 97 01/07/18 11:31 01/07/18 11:31 01/07/18 11:31 01/07/18 11:31 01/07/18 11:31 Oxygen Flow Rate 2 Oxygen Delivery Method Nasal Cannula Weight: 148 lb 12.992 oz Body Mass Index (BMI) 27.2 Intake and Output for Last 24 Hours 01/05/18 01/06/18 01/07/18 23:59 23:59 23:59 Intake Total 2244 / 2244 360 / 360 Output Total 1550 / 1550 500 / 500 Balance 694 / 694 -140 / -140 Microbiology Past 72 Hours 01/06/18 05:56 Urine Culture - Preliminary Urine, Clean Catch Culture exhibits no growth. 01/06/18 11:03 Respiratory Panel (PCR) - Final Mucosa - Nose Influenza A (Subtype H3) Laboratory Tests Past 24 Hrs 01/07/18 05:00 Sodium 140 Potassium 3.6 Chloride 106 Carbon Dioxide 23.0 Anion Gap 11 BUN 24 H Creatinine 1.35 H Estim Creat Clear Calc 26.29 Est GFR (MDRD) Af Amer 49 L Est GFR (MDRD) Non-Af 40 L BUN/Creatinine Ratio 17.8 Glucose 171 H Calcium 8.3 L Assessment/Plan Hospitalist note: I am seeing this patient in conjunction with Kristopher Hamilton. I independently seen and examined the patient. Progress note above and I agree with the above treatment plan. Patient seen and examined. Shortness of breath continued to improve, she is down to 1 L of oxygen. Afebrile, blood pressure stable. Pulse ox is 97% on 1 L. - Physical Exam General: Alert, Oriented x3, Cooperative, mildly short of breath. HEENT: Atraumatic, PERRLA, EOMI. Neck: Supple, No JVD, Negative Carotid Bruits, Trachea Midline, Thyroid Normal. Lungs: Decreased breath sounds bilateral, occasional wheezes, rhonchi. No crackles, mildly short of breath. Cardiovascular: Regular rate, Regular Rhythm, Normal S1, Normal S2, PMI Normal. Abdomen: Bowel Sounds Present, Soft, Non Tender, Non-Distended, No Hepato- splenomegaly. Extremities: No clubbing, No cyanosis, No edema Skin: No rashes, No breakdown Neurological: Neuro grossly intact Assessment and plan: #1 severe sepsis: Attributed to acute bronchitis and sinusitis. Levaquin discontinued today. Blood and urine cultures are pending. Urine culture showed no growth. #2 Influenza A/acute bronchitis/acute asthma exacerbation: Triggered by influenza A, she is on IV steroids and bronchodilators.Chest x-ray showed no acute infiltrate or consolidation. #3 acute sinusitis: Ruled out. X-ray of the nasal sinuses showed no evidence of acute sinusitis. Levaquin discontinued. #4 acute hypoxic respiratory failure: Continue bronchitis as well as acute asthma exacerbation. Patient is well known case of bronchial asthma. Symptoms improved, she is down to 1 L of oxygen. Plan as above #5 other chronic medical problems: Stable, continue current medications as above. This note was generated with Netevenation software. It may contain incorrect words, spelling, and punctuation that were not noted in checking the note before signing. Code Visit Inpatient E&M: 66250 Subs Hosp L2
[2018-01-07] MEDS: 0.9% Normal Saline 1,000 ML 75 ML IV (13:02)
[2018-01-07] MEDS: guaiFENesin Dm 10 ML UDC PO (15:12)
[2018-01-07] MEDS: Pravastatin 40 MG Tablet PO (22:11)
[2018-01-07] MEDS: FLUoxetine 20 MG Capsule PO (22:11)
[2018-01-08] VITALS (11 sets, daily range): BP systolic 153–177; BP diastolic 70–89; PULSE 69–93; RESP 18; TEMP 36.3–36.8; O2SAT 95–98
[2018-01-08] MEDS: BENZOCAINE/MENTHOL 1 LOZENGE 2 LOZENGE MUCOUS MEM (01:45)
[2018-01-08] MEDS: 0.9% Normal Saline 1,000 ML 75 ML IV (01:46)
[2018-01-08 06:39] LABS: Anion Gap 11 (5-15); BUN 24 mg/dL (7-18); Calcium,Total 7.9 mg/dL (8.5-10.1); Chloride 108 mmol/L (98-107); EST Glomerular Filtration Rate 46 mL/min (>60); Est Glom Filt Rate - Afr Amer 56 mL/min (>60); Estimated Creatinine Clearance 29.57 ml/min; Glucose 158 mg/dL (74-106); Potassium 3.6 mmol/L (3.5-5.1); Sodium Level 141 mmol/L (136-145)
[2018-01-08] MEDS: Ipratropium/Albuterol Sulfate 3 ML AMPUL.NEB INHALATION ×2 (06:51→10:55)
[2018-01-08] MEDS: Aspirin 81 MG TAB.CHEW PO (08:19)
[2018-01-08] MEDS: Loratadine 10 MG Tablet PO (09:14)
[2018-01-08] MEDS: Fluticasone 0.05% 1 SPRAY NASAL.SRY 2 SPRAY NASAL (09:15)
[2018-01-08] MEDS: Clopidogrel Bisulfate 75 MG Tablet PO (09:15)
[2018-01-08] MEDS: Losartan Potassium 100 MG Tablet PO (09:15)
[2018-01-08] MEDS: Enoxaparin 30 MG/0.3 ML Syringe SC (09:23)
[2018-01-08] MEDS: Metoprolol(XL)Succ 100 MG Tablet PO (11:12)
--- NOTE | 2018-01-08 11:44 | PCM.DC ---
- Discharge Diagnoses Current Active Problems: Current Active and Chronic Problems (Last Updated 12/08/17 @ 10:24 by Shannen Daly) Severe sepsis (Acute) Sinusitis (Acute) Acute bronchitis (Acute) Acute respiratory failure with hypoxia (Acute) You will use the following diet at home:: Cardiac Your food should be the consistency of: Regular Your liquids should be the consistency of: Regular/Thin Discharge Activity: Return to Normal Activity Allergies/Adverse Reactions: Allergies Penicillins Allergy (Verified 12/15/17 09:14) Rash venom-wasp [Wasp Venom] Allergy (Verified 12/15/17 09:14) Anaphylaxis [id number] Reductase Inhibitor Adverse Reaction (Verified 12/15/17 09:14) muscle weakness HORNET Allergy (Uncoded 12/15/17 09:14) Anaphylaxis YELLOW JACKETS Allergy (Uncoded 12/15/17 09:14) Anaphylaxis Medications to take at Discharge Fluoxetine [Prozac] 20 mg PO QHS 02/11/14 Loratadine [Claritin] 10 mg PO DAILY 02/11/14 Triamcinolone Acetonide [Nasacort] 1 spray NS DAILY 06/01/16 Fluticasone Prop 250 mcg [Flovent Diskus 250 mcg] 1 puff INHALATION BID 06/24/17 Aspirin [Aspirin, Baby] 81 mg PO DAILY@0800 07/13/17 Clopidogrel Bisulfate [Plavix] 75 mg PO DAILY 07/13/17 Pravastatin [Pravachol] 40 mg PO QHS 07/13/17 albuterol sulfate HFA 90 mcg/actuation aerosol inhaler 1 puff INHALATION Q4H PRN g 12/08/17 losartan 100 mg tablet 100 mg PO QDAY 12/08/17 meclizine 12.5 mg tablet 12.5 mg PO PRN PRN tab 12/08/17 pantoprazole 40 mg tablet,delayed release 40 mg PO PRN PRN 12/08/17 metoprolol succinate ER 100 mg tablet,extended release 24 hr 100 mg PO QDAY tab 12/15/17 Prednisone 10 mg PO UD #30 tab 01/08/18 The following prescriptions were given: Prednisone 10 mg PO UD #30 tab Primary Care Physician: Pat Mcneill MD [Primary Care Provider] - Please follow up with your Primary Care Physician in: 1-2 weeks Proposed Discharge Date: 01/08/18
--- NOTE | 2018-01-08 11:47 | PCM.DC.SUM ---
Discharge Date and Diagnosis - Problem List Patient Problems: Active and Suspected Problems (Last Updated 12/08/17 @ 10:24 by Shannen Daly) Severe sepsis (Acute) Sinusitis (Acute) Acute bronchitis (Acute) Acute respiratory failure with hypoxia (Acute) Date of Admission: 01/05/18 Date of Discharge: 01/08/18 - Primary Discharge Diagnosis Active and Suspected Problems (Last Updated 12/08/17 @ 10:24 by Shannen Daly) Acute sepsis 2/2 acute Influenza A bronchitis Acute hypoxia 2/2 acute asthma exacerbation 2/2 above JACQUELYN Hx CVA HTN - Secondary Discharge Diagnosis Chronic Problems (Last Updated 12/08/17 @ 10:24 by Shannen Daly) Nonrheumatic mitral valve insufficiency (Chronic) Cough (Chronic) History of Wendy fundoplication (Chronic) Stenosis of right vertebral artery (Chronic) Hyperlipidemia (Chronic) Obstructive hypertrophic cardiomyopathy (Chronic) Syncope and collapse (Chronic) History of CVA (cerebrovascular accident) (Chronic) Depression (Chronic) Obstructive sleep apnea (Chronic) History of TIA (transient ischemic attack) (Chronic) History of asthma (Chronic) Hypertension (Chronic) Meniere disease (Chronic) Hospital Course and Treatment Imaging Results: RAD/Chest PA and Lateral IMPRESSION: There is no evidence of focal consolidation or pleural effusion. RAD/Sinuses min 3 Views IMPRESSION: There is no radiographic evidence of acute sinusitis. Operations: None Procedures: None Summary of Care Provided: Physical exam on day of discharge: General: Resting comfortably NAD Psych: A/Ox3 normal affect HEENT: PEARRLA AT NC Neck: Supple NT CV: RRR no m/t/r/g/h Resp: expiratory wheezing throughout Abd: [id number] Soft NT no guarding or rigidity Ext: DP2+= no edema Skin: W/D normal turgor Lymph/Heme: No active bleeding or adenopathy Neuro: CN2-12 intact Hospital course: The patient is a 82 year old F who presented to the emergency room with increased shortness of breath, wheezing, cough, and sinus congestion who had failed outpatient therapy with 2 courses of doxycycline and prednisone. She is found to be hypoxic and placed on oxygen. She was very wheezy and with a history of asthma so she was placed on steroids and given breathing treatments. She was admitted to the hospital with positive septis criteria, for acute hypoxia, asthma exacerbation, bronchitis, and JACQUELYN as her creatinine was elevated above baseline. He was initially placed on Levaquin for bronchitis. She was given IV fluids. Chest x-ray was negative and an x-ray of her sinuses was negative. A respiratory panel was taken which revealed influenza A. As she had been sick for several weeks Tamiflu was not indicated. Antibiotics were discontinued. The patient gradually improved and was able to be weaned off of oxygen at rest and with exertion. She was placed on a prednisone taper, and was discharged home in stable condition. She will need to follow-up with her PCP in 1-2 weeks. This patient was seen by Kristopher Haimlton PA-C under the supervision of Doctor Vu. [] Discharge Diet: Low fat/ Low Cholesterol, 4000 mg Sodium Diet Discharge Activity: Return to Normal Activity Home Medications: Medications to take at Discharge Fluoxetine [Prozac] 20 mg PO QHS 02/11/14 Loratadine [Claritin] 10 mg PO DAILY 02/11/14 Triamcinolone Acetonide [Nasacort] 1 spray NS DAILY 06/01/16 Fluticasone Prop 250 mcg [Flovent Diskus 250 mcg] 1 puff INHALATION BID 06/24/17 Aspirin [Aspirin, Baby] 81 mg PO DAILY@0800 07/13/17 Clopidogrel Bisulfate [Plavix] 75 mg PO DAILY 07/13/17 Pravastatin [Pravachol] 40 mg PO QHS 07/13/17 albuterol sulfate HFA 90 mcg/actuation aerosol inhaler 1 puff INHALATION Q4H PRN g 12/08/17 losartan 100 mg tablet 100 mg PO QDAY 12/08/17 meclizine 12.5 mg tablet 12.5 mg PO PRN PRN tab 12/08/17 pantoprazole 40 mg tablet,delayed release 40 mg PO PRN PRN 12/08/17 metoprolol succinate ER 100 mg tablet,extended release 24 hr 100 mg PO QDAY tab 12/15/17 Prednisone 10 mg PO UD #30 tab 01/08/18 Following Prescrptions Were Given to Patient: Prednisone 10 mg PO UD #30 tab Primary Care Physician: Pat Mcneill MD [Primary Care Provider] - Please follow up with your Primary Care Physician in: 1-2 weeks Disposition: Home Minutes spent on discharge:: 35 Patient Condition:: Stable Meaningful Use Info Meaningful Use Diagnoses (Choose all that apply): None applicable
--- NOTE | 2018-01-08 11:53 | DS.PCM_ITS ---
Addendum entered and electronically signed by PIYUSH Tovar 01/08/18 12:21: Code Visit Sepsis met on admission with pulse >90, tachypnea, elevated lactate, JACQUELYN, and source of infection being bronchitis 2/2 influenza A. JACQUELYN was present on admission. Acute respiratory failure ruled out as patient did not require significant amounts of oxygen. Original Note: Discharge Date and Diagnosis - Problem List Patient Problems: Active and Suspected Problems (Last Updated 12/08/17 @ 10:24 by Shannen Daly) Severe sepsis (Acute) Sinusitis (Acute) Acute bronchitis (Acute) Acute respiratory failure with hypoxia (Acute) Date of Admission: 01/05/18 Date of Discharge: 01/08/18 - Primary Discharge Diagnosis Active and Suspected Problems (Last Updated 12/08/17 @ 10:24 by Shannen Daly) Acute sepsis 2/2 acute Influenza A bronchitis Acute hypoxia 2/2 acute asthma exacerbation 2/2 above JACQUELYN Hx CVA HTN - Secondary Discharge Diagnosis Chronic Problems (Last Updated 12/08/17 @ 10:24 by Shannen Daly) Nonrheumatic mitral valve insufficiency (Chronic) Cough (Chronic) History of Wendy fundoplication (Chronic) Stenosis of right vertebral artery (Chronic) Hyperlipidemia (Chronic) Obstructive hypertrophic cardiomyopathy (Chronic) Syncope and collapse (Chronic) History of CVA (cerebrovascular accident) (Chronic) Depression (Chronic) Obstructive sleep apnea (Chronic) History of TIA (transient ischemic attack) (Chronic) History of asthma (Chronic) Hypertension (Chronic) Meniere disease (Chronic) Hospital Course and Treatment Imaging Results: RAD/Chest PA and Lateral IMPRESSION: There is no evidence of focal consolidation or pleural effusion. RAD/Sinuses min 3 Views IMPRESSION: There is no radiographic evidence of acute sinusitis. Operations: None Procedures: None Summary of Care Provided: Physical exam on day of discharge: General: Resting comfortably NAD Psych: A/Ox3 normal affect HEENT: PEARRLA AT NC Neck: Supple NT CV: RRR no m/t/r/g/h Resp: expiratory wheezing throughout Abd: [id number] Soft NT no guarding or rigidity Ext: DP2+= no edema Skin: W/D normal turgor Lymph/Heme: No active bleeding or adenopathy Neuro: CN2-12 intact Hospital course: The patient is a 82 year old F who presented to the emergency room with increased shortness of breath, wheezing, cough, and sinus congestion who had failed outpatient therapy with 2 courses of doxycycline and prednisone. She is found to be hypoxic and placed on oxygen. She was very wheezy and with a history of asthma so she was placed on steroids and given breathing treatments. She was admitted to the hospital with positive septis criteria, for acute hypoxia, asthma exacerbation, bronchitis, and JACQUELYN as her creatinine was elevated above baseline. He was initially placed on Levaquin for bronchitis. She was given IV fluids. Chest x-ray was negative and an x-ray of her sinuses was negative. A respiratory panel was taken which revealed influenza A. As she had been sick for several weeks Tamiflu was not indicated. Antibiotics were discontinued. The patient gradually improved and was able to be weaned off of oxygen at rest and with exertion. She was placed on a prednisone taper, and was discharged home in stable condition. She will need to follow-up with her PCP in 1-2 weeks. This patient was seen by Kristopher Hamilton PA-C under the supervision of Doctor Vu. [] Discharge Diet: Low fat/ Low Cholesterol, 4000 mg Sodium Diet Discharge Activity: Return to Normal Activity Home Medications: Medications to take at Discharge Fluoxetine [Prozac] 20 mg PO QHS 02/11/14 Loratadine [Claritin] 10 mg PO DAILY 02/11/14 Triamcinolone Acetonide [Nasacort] 1 spray NS DAILY 06/01/16 Fluticasone Prop 250 mcg [Flovent Diskus 250 mcg] 1 puff INHALATION BID Aspirin [Aspirin, Baby] 81 mg PO DAILY@0800 07/13/17 Clopidogrel Bisulfate [Plavix] 75 mg PO DAILY 07/13/17 Pravastatin [Pravachol] 40 mg PO QHS 07/13/17 albuterol sulfate HFA 90 mcg/actuation aerosol inhaler 1 puff INHALATION Q4H PRN g 12/08/17 losartan 100 mg tablet 100 mg PO QDAY 12/08/17 meclizine 12.5 mg tablet 12.5 mg PO PRN PRN tab 12/08/17 pantoprazole 40 mg tablet,delayed release 40 mg PO PRN PRN 12/08/17 metoprolol succinate ER 100 mg tablet,extended release 24 hr 100 mg PO QDAY tab 12/15/17 Prednisone 10 mg PO UD #30 tab 01/08/18 Following Prescrptions Were Given to Patient: Prednisone 10 mg PO UD #30 tab Primary Care Physician: Pat Mcneill MD [Primary Care Provider] - Please follow up with your Primary Care Physician in: 1-2 weeks Disposition: Home Minutes spent on discharge:: 35 Patient Condition:: Stable Meaningful Use Info Meaningful Use Diagnoses (Choose all that apply): None applicable
== END 2018-01-08 13:47 | disposition home or self-care (01) | DRG 872 ==
LOC: ED 19:56 → PCU 23:57
PROVIDERS: Physician Assistant; Emergency Provider Emergency Medicine; Family Provider Internal Medicine; PCP Internal Medicine; Visit Provider Internal Medicine
DX: A41.89 Other specified sepsis (principal); N17.9 Acute kidney failure, unspecified; I42.1 Obstructive hypertrophic cardiomyopathy; J45.901 Unspecified asthma with (acute) exacerbation; I34.0 Nonrheumatic mitral (valve) insufficiency; R65.20 Severe sepsis without septic shock; J20.8 Acute bronchitis due to other specified organisms; J10.1 Influenza due to other identified influenza virus with other respiratory manifestations; Z86.73 Personal history of transient ischemic attack (TIA), and cerebral infarction without residual deficits; I10 Essential (primary) hypertension; E78.5 Hyperlipidemia, unspecified; F32.9 Major depressive disorder, single episode, unspecified; G47.33 Obstructive sleep apnea (adult) (pediatric); H81.09 Meniere's disease, unspecified ear; Z87.891 Personal history of nicotine dependence
CPT/HCPCS: 36415; 70220; 71046; 80048; 81001; 83605; 85025; 85027; 87040; 87086; 87633; 93005; 94640; 94762; 97802; 99285; J7030; A4216

== ENCOUNTER → 2018-05-21 15:06 | Outpatient (CLI) | payer MEDICARE, OTHER, SELFPAY ==
[2018-05-21 17:31] LABS: Absolute Lymphocyte Count 1.72 X10^3/ul (0.83-4.51); Basophil# 0.04 X10^3/uL; Basophil% 0.7 % (0-1); Eosinophil# 0.25 X10^3/uL; Eosinophils% 4.3 % (0-5); Hemoglobin 12.8 g/dl (12.0-15.0); Lymphocyte # 1.72 X10^3/ul (4.0); Lymphocyte % 29.7 % (19-41); Mean Corp Hgb Conc 33.7 g/gl (32-36); Mean Corpuscular Hgb 29.8 pg (27.0-32.0); Mean Corpuscular Volume 88.6 fL (81-99); Mean Platelet Vol. 9.7 fl (6.2-12.0); Monocyte# 0.76 X10^3/uL; Monocyte% 13.1 % (0-10); Neutrophil # 3.01 X10^3/uL (2.7-7.7); Platelet Count 238 K/mm3 (150-450); RBC Distribution Width CV 12.3 % (11.6-14.6); RBC Distribution Width SD 39.2 fl (35.1-43.9); Red Blood Count 4.29 M/mm3 (4.2-5.4); White Blood Count 5.8 K/mm3 (4.4-11.0)
[2018-05-21 17:39] LABS: POSITIVE COUNT NO; POSITIVE DIFFERENTIAL NO; POSITIVE MORPHOLOGY NO
[2018-05-21 18:02] LABS: ALB/GLOB Ratio 1.4 RATIO (0.9-2.4); AST(SGOT) 23 U/L (15-37); Alanine Aminotransfer ALT/SGPT 32 U/L (13-56); Albumin, Serum 4.2 g/dL (3.2-5.0); Alkaline Phosphatase 65 U/L (45-117); Anion Gap 11 (5-15); BUN 24 mg/dL (7-18); BUN/Creat Ratio 18.8 RATIO (10-20); Calcium,Total 9.4 mg/dL (8.5-10.1); Chloride 103 mmol/L (98-107); Creatinine, Serum 1.28 mg/dL (0.55-1.02); EST Glomerular Filtration Rate 43 mL/min (>60); Est Glom Filt Rate - Afr Amer 52 mL/min (>60); Globulin 3.1 g/dL (2.2-4.2); Glucose 84 mg/dL (74-106); Potassium 4.5 mmol/L (3.5-5.1); Protein, Total 7.3 g/dL (6.4-8.2); Sodium Level 139 mmol/L (136-145)
[2018-05-25 09:07] LABS: DHEA Sulfate 18.9 ug/dL (13.9-142.8)
[2018-05-25 11:53] LABS: Androstenedione < 10 ng/dL (17-99)
== END ==
PROVIDERS: Family Provider Family Medicine; PCP Family Medicine; Visit Provider Family Medicine
DX: L65.9 Nonscarring hair loss, unspecified (principal); E03.9 Hypothyroidism, unspecified
CPT/HCPCS: 36415; 80053; 82157; 82627; 84403; 84443; 85025; 82626

== ENCOUNTER → 2018-11-21 14:07 | Outpatient (CLI) | payer MEDICARE, OTHER, SELFPAY ==
[2018-08-07 15:17] VITALS: BMI 27.4
[2018-11-21 16:07] LABS: Anion Gap 8 (5-15); BUN 16 mg/dL (7-18); Calcium,Total 8.5 mg/dL (8.5-10.1); Chloride 111 mmol/L (98-107); Creatinine, Serum 1.14 mg/dL (0.55-1.02); EST Glomerular Filtration Rate 49 mL/min (>60); Est Glom Filt Rate - Afr Amer 59 mL/min (>60); Glucose 106 mg/dL (74-106); Potassium 4.4 mmol/L (3.5-5.1); Sodium Level 146 mmol/L (136-145); Thyroid Stim Hormone (TSH) 0.42 uIU/mL (0.358-3.74)
== END ==
PROVIDERS: Family Provider Family Medicine; PCP Family Medicine; Visit Provider Family Medicine
DX: I10 Essential (primary) hypertension (principal); E03.9 Hypothyroidism, unspecified
CPT/HCPCS: 36415; 80048; 84443

== ENCOUNTER 2019-04-21 22:29 | Emergency (ER) | payer MEDICARE, OTHER, SELFPAY ==
[2019-02-05 13:33] VITALS: BMI 27.1
[2019-04-21 22:30] VITALS: BP 165/84; PULSE 72; RESP 18; TEMP 36.6; O2SAT 99; BMI 27.1
[2019-04-21 23:11] LABS: Bedside Glucose 143 mg/dL (70-110)
--- NOTE | 2019-04-21 23:11 | EKG12_ITS ---
Test Reason : CONFUSION Blood Pressure : / mmHG Vent. Rate : 065 BPM Atrial Rate : 065 BPM P-R Int : 160 ms QRS Dur : 122 ms QT Int : 468 ms P-R-T Axes : -01 052 013 degrees QTc Int : 486 ms Normal sinus rhythm Right bundle branch block Abnormal ECG Confirmed by NI DAILY, SNEHA ([id number]), medical transcription editor TERRI SMITH ([id number]) on 04/24/2019 9:13:20 AM Referred By: CACHORRO Confirmed By:SNEHA DAN MD
--- NOTE | 2019-04-21 23:11 | RAD_ITS ---
STUDY: X-RAY CHEST REASON FOR EXAM: Female, 83 years old. Confusion TECHNIQUE: Single frontal view of the chest. COMPARISON: January 05, 2018 FINDINGS: The lungs are clear and expanded. There is no demonstrated pleural abnormality. Normal size heart. Normal mediastinum and marie. Normal visualized pulmonary arteries. Normal visualized aortic arch and descending thoracic aorta. Normal visualized thoracic spine. Normal visualized ribs, clavicles, and shoulders. There is no demonstrated abnormality of the visualized soft tissue structures of the upper abdomen. RAD/Chest 1 View (Portable) IMPRESSION: Normal x-ray examination of the chest. Electronically Signed: Enoc Armendariz MD at 23:32 EDT , Service support ,
--- NOTE | 2019-04-21 23:12 | ED.VISSUMM ---
- ER Visit Summary Date of Service: 04/21/19 Chief Complaint: Confusion and increased sleep today History of Present Illness: The patient is a 83 F history of prior stroke and asthma. Patient was recently started on tramadol this week. Today family states that she seemed more confused. She slept most of the day. She denies any vomiting, diarrhea or fever. No headache or head injury. No falls. She has had numerous CAT scans and MRIs. She denies any dysuria. She denies any abdominal pain. Physical Examination: Older female accompanied by family vital signs are stable. Afebrile. Pulse ox 99% on room air. No distress. HEENT exam unremarkable. Round react to light. Extra motions are intact. No facial droop. Normal speech. No signs of trauma. Neck nontender. Lungs clear to auscultation bilaterally. Heart regular rhythm rate about 70 no murmur chest wall nontender. Abdomen soft nontender. She is moving all 4 extremities. Equal symmetrical health and wellness manager strength. Dorsi plantar flexion intact. Back nontender. Skin normal no rashes. Neurologically she is awake and alert. He knew day, month, year and president [facility]. She has normal speech. No facial droop. Her NIH score is 0. No motor deficits. Test Results: Chest x-ray no acute abnormality read by myself and radiologist. EKG sinus rhythm rate of 65 with a right bundle branch block. No signs of ischemia or dysrhythmia. CBC normal white count of 6 hemoglobin 13 no bands. Electrolytes unremarkable gap 11. Creatinine 1.3 which is her baseline. Urinalysis shows 25-50 white cells but no bacteria or nitrates a urine culture was sent but this will not be treated as an infection at this time. I discussed all test results with patient and family at bedside. Emergency Department Course and Treatment: Patient undergo a work-up. This may be secondary to medications. I do not think she needs any brain imaging because she has had numerous CAT scans, CTAs and MRIs some of which is been very recently. Multiple repeat exams patient is doing very well. Last exam at 01:11 AM she is doing well. Both her and family are comfortable with her being discharged home. Treatment Plan: Follow-up with primary care physician. We are going to hold the patient's new medications of tramadol in case that had any play in her symptoms today. Disposition: Discharge Impression: Transient confusion resolved This note was generated with [employer] dictation software. It may contain incorrect words, spelling, and punctuation that were not noted in review of the chart prior to signing ED Disposition - Plan for ED Patient: Referrals: May Avitia MD [Primary Care Provider] -
[2019-04-21 23:19] LABS: Absolute Lymphocyte Count 1.41 X10^3/ul (0.83-4.51); Basophil# 0.04 X10^3/uL; Basophil% 0.6 % (0-1); Eosinophil# 0.23 X10^3/uL; Eosinophils% 3.5 % (0-5); Hematocrit 38.4 % (37-47); Hemoglobin 13.7 g/dl (12.0-15.0); Lymphocyte # 1.41 X10^3/ul (4.0); Lymphocyte % 21.7 % (19-41); Mean Corp Hgb Conc 35.7 g/gl (32-36); Mean Corpuscular Hgb 30.5 pg (27.0-32.0); Mean Corpuscular Volume 85.5 fL (81-99); Mean Platelet Vol. 9.6 fl (6.2-12.0); Monocyte# 0.82 X10^3/uL; Monocyte% 12.6 % (0-10); Neutrophil # 3.97 X10^3/uL (2.7-7.7); Neutrophil % 61.1 % (47-70); POSITIVE COUNT NO; POSITIVE DIFFERENTIAL NO; POSITIVE MORPHOLOGY NO; Platelet Count 223 K/mm3 (150-450); RBC Distribution Width CV 11.6 % (11.6-14.6); RBC Distribution Width SD 35.1 fl (35.1-43.9); Red Blood Count 4.49 M/mm3 (4.2-5.4); White Blood Count 6.5 K/mm3 (4.4-11.0)
[2019-04-21 23:40] LABS: Anion Gap 11 (5-15); BUN 14 mg/dL (7-18); BUN/Creat Ratio 10.6 RATIO (10-20); Calcium,Total 9.1 mg/dL (8.5-10.1); Chloride 102 mmol/L (98-107); Creatinine, Serum 1.32 mg/dL (0.55-1.02); EST Glomerular Filtration Rate 41 mL/min (>60); Est Glom Filt Rate - Afr Amer 50 mL/min (>60); Estimated Creatinine Clearance 26.44 ml/min; Glucose 157 mg/dL (74-106); Potassium 3.4 mmol/L (3.5-5.1); Sodium Level 140 mmol/L (136-145)
[2019-04-21 23:43] LABS: Bacteria 0 SEEN /hpf (None Seen); Mucous, Urine 0 SEEN /hpf (<or=2+); Squamous Epithelial Cells - UA 0 SEEN /hpf (5-10)
[2019-04-21 23:50] LABS: Color, Urine Yellow (Yellow); Glucose, Dipstick Normal (Normal); Ketone-Dipstick 5 mg/dl (Negative); Leukocyte Esterase-Dipstick 500 /ul (Negative); Nitrite-Dipstick Negative (Negative); Occult Blood-Urine 10 /ul (Negative); Protein-Dipstick 15 mg/dl (Negative); Specific Gravity, Urine 1.015 (1.002-1.030); Urine Bilirubin Dipstick Negative (Negative); Urine Clarity Sl. Cloudy (Clear); Urine Urobilinogen 8 mg/dl (Normal); Urine pH 6.5 (5.0 - 8.0)
[2019-04-21 23:55] LABS: Hyaline Cast 0-5 SEEN /lpf (0-5); Red Blood Cells-Urine 0-5 SEEN /hpf (0-5); White Blood Cells 25-50 SEEN /hpf (0-5)
--- NOTE | 2019-04-22 01:13 | ED.DEP ---
ED Disposition - Plan for ED Patient: Disposition: Home or Assisted Living Instructions: ED Confusion Referrals: May Avitia MD [Primary Care Provider] - As soon as possible Additional Instructions: Hold your new medication tramadol. That may have caused her confusion today. Follow-up with primary care physician this week.
[2019-04-22 01:18] VITALS: BP 158/83; PULSE 61; RESP 13; O2SAT 95
== END 2019-04-22 01:25 | disposition home or self-care (01) ==
PROVIDERS: Emergency Provider Emergency Medicine; Family Provider Family Medicine; PCP Family Medicine
DX: R41.0 Disorientation, unspecified (principal); I45.10 Unspecified right bundle-branch block; J45.909 Unspecified asthma, uncomplicated; Z79.02 Long term (current) use of antithrombotics/antiplatelets; Z79.82 Long term (current) use of aspirin; Z79.899 Other long term (current) drug therapy; Z86.73 Personal history of transient ischemic attack (TIA), and cerebral infarction without residual deficits
CPT/HCPCS: 71045; 80048; 81001; 82962; 85025; 87077; 87086; 87088; 87186; 93005; 99285; P9612; A4216

== ENCOUNTER → 2019-05-24 14:32 | Outpatient (CLI) | payer MEDICARE, OTHER, SELFPAY ==
[2019-05-24 16:08] LABS: AST(SGOT) 30 U/L (15-37); Alanine Aminotransfer ALT/SGPT 32 U/L (13-56); Cholesterol 275 mg/dL (200); High Density Lipoprotein 32 mg/dL; Triglycerides 477 mg/dL
== END ==
PROVIDERS: Family Provider Family Medicine; PCP Family Medicine; Referring Provider Family Medicine; Visit Provider Family Medicine
DX: E78.5 Hyperlipidemia, unspecified (principal)
CPT/HCPCS: 36415; 80061; 84450; 84460

== ENCOUNTER → 2019-06-10 | Outpatient (CLI) | payer MEDICARE, OTHER, SELFPAY ==
[2019-06-10 13:17] LABS: Hematocrit 38.7 % (37-47); Hemoglobin 13.7 g/dl (12.0-15.0); Mean Corp Hgb Conc 35.4 g/gl (32-36); Mean Corpuscular Hgb 30.7 pg (27.0-32.0); Mean Corpuscular Volume 86.8 fL (81-99); Mean Platelet Vol. 10.2 fl (6.2-12.0); Platelet Count 245 K/mm3 (150-450); RBC Distribution Width CV 12.1 % (11.6-14.6); RBC Distribution Width SD 37.5 fl (35.1-43.9); Red Blood Count 4.46 M/mm3 (4.2-5.4); White Blood Count 6.4 K/mm3 (4.4-11.0)
[2019-06-10 13:27] LABS: Anion Gap 8 (5-15); BUN 17 mg/dL (7-18); BUN/Creat Ratio 11.7 RATIO (10-20); Calcium,Total 8.9 mg/dL (8.5-10.1); Chloride 105 mmol/L (98-107); Creatinine, Serum 1.45 mg/dL (0.55-1.02); EST Glomerular Filtration Rate 37 mL/min (>60); Est Glom Filt Rate - Afr Amer 45 mL/min (>60); Glucose 113 mg/dL (74-106); Potassium 3.7 mmol/L (3.5-5.1); Sodium Level 140 mmol/L (136-145)
[2019-06-10 14:37] LABS: Scan Indicated on CBC? Y/N NO
== END | disposition home or self-care (01) ==
LOC: LAB 11:43
PROVIDERS: Family Provider Family Medicine; PCP Family Medicine; Referring Provider Physician Assistant Surgical; Visit Provider Physician Assistant Surgical
DX: Z01.818 Encounter for other preprocedural examination (principal)
CPT/HCPCS: 36415; 80048; 85027

== ENCOUNTER 2019-07-06 22:18 | Emergency (ER) | payer MEDICARE, OTHER, SELFPAY ==
[2019-07-06 22:19] VITALS: BP 150/77; PULSE 76; RESP 16; TEMP 37; O2SAT 94; BMI 27.9
--- NOTE | 2019-07-06 22:34 | CT_ITS ---
HISTORY:FELL AND HIT HEAD ON DOOR FRAME FELL AND HIT HEAD ON DOOR FRAME TECHNIQUE: Multiple axial images were obtained of the brain without intravenous contrast. A radiation dose optimization technique was used for this scan. IV Contrast dosage and agent: None. COMPARISON: 2016 FINDINGS: # of images incl. paperwork: 231 INFARCT: Chronic lacunar infarction involving the bilateral basal ganglia seen on the prior study. HEMORRHAGE: None PARENCHYMAL ATTENUATION:Periventricular white matter low density compatible with chronic small vessel ischemic change similar to prior study MASS: None MIDLINE SHIFT: None BASAL CISTERNS: Patent VENTRICLES: Normal in size and configuration for age PARANASAL SINUSES:Mucosal thickeningleft maxillary sinus MASTOID AIR CELLS: Clear ORBITS:No acute pathology CALVARIUM: No acute pathology OTHER TISSUES: Left posterior parietal scalp hematoma ASPECTS Score for Acute Strokes: 10 CT/Brain/Head without Contrast IMPRESSION: No acute intracranial pathology. Chronic changes as discussed similar to prior study Left parietal scalp hematoma Individualized dose optimization techniques were used for this CT. at [id number] Reported and signed by: Martha Piedra DO Electronically Signed: Martha Piedra DO at 23:17 EDT Tel , Service support ,
--- NOTE | 2019-07-06 22:36 | ED.DCSUM_ITS ---
- ER Visit Summary Date of Service: 07/06/19 Chief Complaint: Head injury History of Present Illness: The patient is a 83 F who presents after head injury. She states that she was walking in her left leg gave out when she hit her head on a door frame. She denies LOC but has had 2 episodes of vomiting since then. She is on Plavix. She usually walks with a cane. Her left leg has given out on her in the past. She has no pain anywhere except for her head. She did have left shoulder surgery [address] Ross. She has no pain in this area. Physical Examination: Vital signs reviewed. HEENT exam unremarkable, except for a left parietal hematoma.. Heart is regular rate and rhythm without murmurs. Lungs are clear to auscultation. Abdomen is soft and nontender. Extremities reveal no edema. She has no pain in any of her extremities including her shoulder and left knee. Skin exam normal. Neurologic exam normal. GCS 15. Test Results: CAT scan of the head reveals chronic involutional changes. She does have a scalp hematoma. Emergency Department Course and Treatment: Patient was given Tylenol for her headache. CAT scan reveals nothing acute except for a scalp hematoma. Patient will be discharged use ice and Tylenol for pain. She will follow-up with her doctors Treatment Plan: [] Disposition: Discharge Impression: Fall, scalp hematoma This note was generated with [employer] dictation software. It may contain incorrect words, spelling, and punctuation that were not noted in review of the chart prior to signing ED Disposition - Plan for ED Patient: Referrals: May Avitia MD [Primary Care Provider] -
[2019-07-06] MEDS: Acetaminophen 500 MG Tablet 1000 MG PO (22:47)
--- NOTE | 2019-07-06 23:34 | ED.DEP ---
ED Disposition - Plan for ED Patient: Disposition: Home or Assisted Living Instructions: FALL, Mechanical Referrals: May Avitia MD [Primary Care Provider] -
[2019-07-06 23:40] VITALS: BP 161/77; PULSE 62; RESP 18; O2SAT 98
== END 2019-07-06 23:42 | disposition home or self-care (01) ==
PROVIDERS: Emergency Provider Emergency Medicine; Family Provider Family Medicine; PCP Family Medicine
DX: S00.03XA Contusion of scalp, initial encounter (principal); W18.39XA Other fall on same level, initial encounter; Y93.01 Activity, walking, marching and hiking; I25.10 Atherosclerotic heart disease of native coronary artery without angina pectoris; I10 Essential (primary) hypertension; Z79.82 Long term (current) use of aspirin; Z79.02 Long term (current) use of antithrombotics/antiplatelets; Z79.899 Other long term (current) drug therapy; Z86.73 Personal history of transient ischemic attack (TIA), and cerebral infarction without residual deficits
CPT/HCPCS: 70450; 99284

== ENCOUNTER → 2020-04-17 10:30 | Outpatient (CLI) | payer MEDICARE, OTHER, SELFPAY ==
[2020-02-04 12:56] VITALS: BMI 26.8
[2020-04-17 13:01] LABS: AST(SGOT) 30 U/L (15-37); Alanine Aminotransfer ALT/SGPT 26 U/L (13-56); Anion Gap 7 (5-15); BUN 17 mg/dL (7-18); BUN/Creat Ratio 12.1 RATIO (10-20); Calcium,Total 9.4 mg/dL (8.5-10.1); Chloride 107 mmol/L (98-107); Cholesterol 197 mg/dL (200); EST Glomerular Filtration Rate 38 mL/min (>60); Est Glom Filt Rate - Afr Amer 46 mL/min (>60); Glucose 102 mg/dL (74-106); High Density Lipoprotein 36 mg/dL; Potassium 4.4 mmol/L (3.5-5.1); Sodium Level 141 mmol/L (136-145); T4 Total, Thyroxin 10.7 ug/dL (4.8-13.9); Triglycerides 322 mg/dL; Very Low Density Lipoprotein 64 mg/dL (5-40)
== END ==
PROVIDERS: PCP Family Medicine; Referring Provider Family Medicine; Visit Provider Family Medicine
DX: I10 Essential (primary) hypertension (principal); E78.5 Hyperlipidemia, unspecified; E03.9 Hypothyroidism, unspecified
CPT/HCPCS: 36415; 80048; 80061; 84436; 84443; 84450; 84460

== ENCOUNTER → 2020-09-08 17:25 | Outpatient (CLI) | payer MEDICARE, OTHER, SELFPAY ==
[2020-02-04 12:56] VITALS: BMI 26.8
--- NOTE | 2020-09-08 17:27 | RAD_ITS ---
STUDY: X-RAY CHEST REASON FOR EXAM: Female, 85 years old. asthma TECHNIQUE: Frontal and lateral views of the chest COMPARISON: Apr 21 2019 FINDINGS: The lungs are clear and expanded. There is no demonstrated pleural abnormality. Normal size heart. Normal mediastinum and marie. Normal visualized pulmonary arteries. Normal visualized aortic arch and descending thoracic aorta. Normal visualized thoracic spine. Normal visualized ribs, clavicles, and shoulders. There is no demonstrated abnormality of the visualized soft tissue structures of the upper abdomen. RAD/Chest PA and Lateral IMPRESSION: Normal x-ray examination of the chest. Electronically Signed: Ghazal Henderson, at 12:08 EDT Tel , Service support ,
== END ==
PROVIDERS: PCP Family Medicine; Referring Provider Family Medicine; Visit Provider Family Medicine
DX: J45.909 Unspecified asthma, uncomplicated (principal)
CPT/HCPCS: 71046

== ENCOUNTER 2021-01-20 13:38 | Outpatient (RCR) | payer MEDICARE, OTHER, SELFPAY ==
[2020-02-04 12:56] VITALS: BMI 26.8
== END 2021-01-20 23:59 ==
LOC: IMMUN 13:38
PROVIDERS: PCP Family Medicine; Visit Provider Family Medicine
DX: Z23 Encounter for immunization (principal)
CPT/HCPCS: 0011A; 0012A; 91301

== ENCOUNTER 2021-09-13 12:29 | Emergency (ER) | payer MEDICARE, OTHER, SELFPAY ==
[2021-09-13 12:30] VITALS: BP 207/92; PULSE 58; RESP 18; TEMP 36.1; O2SAT 97; BMI 25.6
[2021-09-13 12:42] VITALS: BP 170/84; PULSE 54; RESP 15; O2SAT 95
--- NOTE | 2021-09-13 13:04 | CT_ITS ---
STUDY: CT BRAIN WITHOUT CONTRAST REASON FOR EXAM: Female, 86 years old. Abrasions to the left side of the forehead following a fall. Headaches. Vomiting. RADIATION DOSAGE (If Supplied By Facility): CTDIvol = ( 44.99 ) mGy, DLP = ( 748.30 ) mGycm TECHNIQUE: Transaxial CT imaging of the brain was performed without administration of intravenous contrast material. Individualized dose optimization techniques were used for this CT. COMPARISON: Comparison is made with prior examination 07/06/2019. FINDINGS: There is evidence of a small scalp hematoma overlying the left frontal bone. Normal calvarium. There is moderate cerebral atrophy with widening of the extra-axial spaces and ventricular dilatation. There are areas of decreased attenuation within the white matter tracts of the supratentorial brain, consistent with microvascular disease changes. Old lacunar infarct in the left basal ganglia. Normal brainstem. There is mild cerebellar atrophy. There is no intracranial hemorrhage. There are no findings of an acute ischemic infarction. Mucosal thickening of the left maxillary sinus. Opacification of the ethmoid sinuses. Mucosal thickening of the left sphenoid sinus. CT/Brain/Head without Contrast IMPRESSION: Scalp hematoma overlying the left frontal bone. Stable cerebral atrophy and old lacunar infarct in the left basal ganglion. Sinusitis. Electronically Signed: Pravin Gutiérrez MD at 14:12 EDT , Service support ,
--- NOTE | 2021-09-13 13:04 | EKG12_ITS ---
Test Reason : FALL Blood Pressure : / mmHG Vent. Rate : 054 BPM Atrial Rate : 054 BPM P-R Int : 192 ms QRS Dur : 120 ms QT Int : 486 ms P-R-T Axes : 033 057 036 degrees QTc Int : 460 ms Sinus bradycardia Right bundle branch block Abnormal ECG Confirmed by AUNG DAILY, GUSTABO ([id number]), editor continuity and script TERRI SMITH ([id number]) on 09/14/2021 9:22:20 AM Referred By: JOSSELYN Confirmed By:GUSTABO HORAN MD
--- NOTE | 2021-09-13 13:04 | CT_ITS ---
STUDY: CT FACIAL BONES WITHOUT CONTRAST REASON FOR EXAM: Female, 86 years old. Left forehead abrasions following a fall. RADIATION DOSAGE (If Supplied By Facility): CTDIvol = ( 29.38 ) mGy, DLP = ( 451.96 ) mGycm TECHNIQUE: The patient was scanned in a multi detector CT scanner. Sagittal and coronal images were reconstructed. Individualized dose optimization techniques were used for this CT. COMPARISON: None. FINDINGS: Small scalp hematoma overlying the left frontal bone. Normal orbital raphael and orbital contents. Normal nasal bones and anterior nasal spine. Normal facial bones. There is no demonstrated fracture. Partial opacification of the left maxillary sinus. Opacification of the ethmoid sinuses. Partial opacification of the left sphenoid sinus with mucosal thickening along the lateral wall of the right sphenoid sinus. CT/Sinus/Facial Bone IMPRESSION: Sinusitis. No fracture is seen. Electronically Signed: Pravin Gutiérrez MD at 14:18 EDT , Service support ,
--- NOTE | 2021-09-13 13:04 | CT_ITS ---
STUDY: CT CERVICAL SPINE WITHOUT CONTRAST REASON FOR EXAM: Female, 86 years old. Trauma RADIATION DOSAGE (If Supplied By Facility): CTDIvol = ( 1202 ) mGy, DLP = ( 227.39 ) mGycm TECHNIQUE: High resolution transaxial imaging was performed without contrast material. Sagittal and coronal images were reconstructed. Individualized dose optimization techniques were used for this CT. COMPARISON: None FINDINGS: Normal craniovertebral junction. There are degenerative changes of the anterior atlantoaxial articulation. Normal odontoid process. There is straightening of the normal cervical lordosis. Normal vertebral bodies and posterior osseous elements. C2-3: Minimal degree of anterior listhesis of C2 on C3 most likely secondary to the facet joint osteoarthritis and hypertrophy. The facet joint osteoarthritis and hypertrophy is worse on the right side. C3-4: Minimal anterior listhesis of C3 on C4 due to the facet joint osteoarthritis and hypertrophy worse on the right side. Moderate degree of right neural foraminal stenosis. C4-5: Minimal degree of anterior listhesis of C4 on C5. Facet joint osteoarthritis and hypertrophy with bilateral neural foraminal stenosis. C5-6: Marked degree of disc space narrowing with anterior spondylosis. Uncovertebral arthrosis. Moderate degree of bilateral neural foraminal stenosis worse on the left side. C6-7: Marked degree of disc space narrowing. Spondylosis. Uncovertebral arthrosis. Facet joint osteoarthritis. C7-T1: Normal endplates. Normal disc height and morphology. Normal central canal and intervertebral neuroforamina. Scarring at the lung apices. Atherosclerotic calcific plaques at the origin of the internal carotid arteries bilaterally. CT/Spine Cervical without Contras IMPRESSION: Multilevel degenerative changes, as described above. Electronically Signed: Pravin Gutiérrez MD at 14:22 EDT , Service support ,
--- NOTE | 2021-09-13 13:08 | EDS_ITS ---
HPI HPI - Fall History of Present Illness Chief Complaint: Fall Informant: patient and family Narrative Narrative: Fall in the garage. She hit her head but no loss of consciousness. She did vomit once afterwards. She is not nauseated now. She states she thinks she just lost her balance. She did not lose consciousness at any time including leading up to the event. She did not feel lightheaded or dizzy. She had no chest pain pressure palpitations or dyspnea. She has headache and a little pain on her left cheek and right elbow. No spinal pain. No abdominal or pelvic pain. No back pain. No numbness tingling or weakness. She is on Plavix. Of note, she is also on metoprolol. Pressing on the sore areas makes them worse, ice seems to be helping. [facility] Medical History (Updated 09/13/21 @ 14:[address] Gregorio Saez MD) Depression Essential (primary) hypertension History of asthma History of CVA (cerebrovascular accident) (07/2017) History of TIA (transient ischemic attack) Hyperlipidemia Meniere disease Obstructive hypertrophic cardiomyopathy Obstructive sleep apnea Stenosis of right vertebral artery Syncope and collapse Vertigo Home Medications fluoxetine 20 mg PO QHS 02/11/14 [History Last Taken 01/04/18] loratadine 10 mg PO DAILY 02/11/14 [History Last Taken 01/05/18] triamcinolone acetonide 1 spray NS DAILY 06/01/16 [History Last Taken 01/05/18] fluticasone propionate 1 puff INHALATION BID 06/24/17 [History Last Taken 08/20/17] aspirin 81 mg PO DAILY@0800 07/13/17 [History Last Taken 01/05/18] clopidogrel 75 mg PO DAILY 07/13/17 [History Last Taken 01/05/18] pravastatin 40 mg PO QHS 07/13/17 [History Last Taken 01/04/18] albuterol sulfate 90 mcg/actuation aerosol inhaler 1 puff INHALATION Q4H PRN g 12/08/17 [History Last Taken Unknown] pantoprazole 40 mg tablet,delayed release 40 mg PO PRN PRN 12/08/17 [History Last Taken Unknown] metoprolol succinate 100 mg tablet,extended release 24 hr 100 mg PO QDAY tab 12/15/17 [History Last Taken 01/05/18] losartan 50 mg tablet 50 mg PO DAILY #90 tab 09/30/20 [Rx Last Taken Unknown] metoprolol succinate 50 mg PO DAILY #30 tab 09/13/21 [Rx Last Taken Unknown] Allergy/AdvReac Type Severity Reaction Status Date / Time Penicillins Allergy Rash Verified 09/13/21 12:34 venom-wasp [Wasp Venom] Allergy Anaphylaxis Verified 09/13/21 12:34 [id number]-[id number]-Tco Reductase AdvReac muscle Verified 09/13/21 12:34 Inhibitor weakness tramadol AdvReac Other Verified 09/13/21 12:34 HORNET Allergy Anaphylaxis Uncoded 09/13/21 12:34 YELLOW JACKETS Allergy Anaphylaxis Uncoded 09/13/21 12:34 Family History Mother , age 55 sudden cardiac CAD (coronary artery disease) Sudden cardiac Father , age 77 Lung cancer Sister carotid artery surgery CAD (coronary artery disease) Surgical History History of Wendy fundoplication Social History Smoking Status: Former smoker alcohol intake: current alcohol intake frequency: 0-2 drinks per day Alcohol type: wine substance use type: does not use caffeine: Yes Type: coffee Number of servings: 1 what type of physical activity do you participate in: none seatbelt use: always do you feel safe at home: Yes ROS ROS ED Constitutional Constitutional ED: Denies fever(s) or subjective Eyes Eyes: Denies blurry vision ENT ENT ED: Denies rhinorrhea or sore throat Cardiovascular Cardiovascular: Denies chest pain, palpitations or racing heartbeat Respiratory/Chest Respiratory/Chest: Denies cough, dyspnea or dyspnea on exertion Gastrointestinal Gastrointestinal: Denies abdominal pain, diarrhea, nausea or vomiting Genitourinary Genitourinary ED: Denies dysuria or hematuria Musculoskeletal Musculoskeletal: Denies arthralgias, back pain, myalgias or neck pain Integumentary Reports Abrasions; Denies rash Neurologic Neurologic: Reports headache(s); Denies paresthesias or weakness Endocrine Endocrinology: Denies polydipsia or polyuria Hematologic/Lymphatic Hematologic/Lymphatic: Reports easy bleeding and easy bruising Allergic/Immunologic Allergic/Immunologic ED: Denies urticaria EXAM Physical Exam Const Vital Signs: 09/13/21 12:30 09/13/21 12:42 09/13/21 12:43 Temperature 96.9 F L Temperature Source Temporal Pulse Rate 58 L 54 L Respiratory Rate 18 15 Respiratory Effort Normal Non-Labored Respiratory Depth Normal Respiratory Pattern Normal Blood Pressure 207/92 H 170/84 H Blood Pressure Mean 130 112 Pulse Ox 97 95 Oxygen Delivery Method Room Air Room Air Room Air Patient is wide awake alert. She carries on a normal conversation. She is nontoxic in appearance. Positive well nourished and well developed General Appearance ED: well developed and NAD HEENT HEENT Narrative: Patient has a relatively large hematoma in the left frontal/forehead area. There is an abrasion. No laceration though. There is also some left zygoma area tenderness but no swelling or abrasion in that area. No facial anesthesia. Eyes PERRL and EOMs intact bilaterally Eyes Narrative: Small but they are equal and they are reactive. No pain with range of motion. No limitation of upward gaze. Neck supple Neck Narrative: Mild tenderness at the upper portion of the C-spine although the patient does not states she hurts there she does note it when I press. Chest Wall inspection of chest normal and palpation of chest normal Resp normal respiratory effort, no retractions and clear to auscultation bilaterally Cardio regular rhythm Cardio Narrative: Heart rate is running about 57-61. It does appear to be regular. It also appears to be a sinus rhythm with bradycardia on the monitor. No ectopy is noted. Rate: bradycardia GI non-tender and non-distended GI Narrative: No mass or bruit or tenderness. Palpation: soft Back/Spine Cervical Spine: cervical spine tenderness Thoracic Spine / Upper Back: Negative for thoracic spinal tenderness Lumbar Spine / Lower Back: Negative for lumbar spinal tenderness Extremity Extremity Narrative: Patient is a small abrasion of the right olecranon area. There is some tenderness diffusely in the elbow all the range of motion is good. No deformity. No pain of the left upper extremity in any area or right upper extremity in any other area. No extremity from the pelvis hips on down on the legs. Neuro oriented x3 Sensorium / Orientation: alert Psych mental status grossly normal Skin Trauma: abrasion; Negative for laceration MDM MDM MDM Narrative Medical decision making narrative: Patient CBC shows no marked abnormalities. Electrolytes show mild elevation of BUN and creatinine. I will give her a small amount of fluids. Troponin is negative. Her heart rate is still about 57. She feels good and her blood pressure is normal. She would like something for the headache. She agreed on Tylenol. CT of her head face and neck are negative. Elbow x-ray shows soft tissue injury. There is suspicion of foreign bodies. However, when I look at the x-rays these look to be bony and they are not in the area of her abrasion. Her abrasion is very superficial and I do not think this is the cause of her foreign body seen on x-ray. Patient is on 100 a day of metoprolol. I will write a prescription for 50 a day. I think this is likely the cause of her mild sinus bradycardia. It was explained that she can use her metoprolol and break it in half. If this cannot be done she can fill the prescription I am giving her. Her daughter is here also will make sure this is done correctly. I explained they cannot take both of these. Lab Data Attestation: I reviewed the patient's lab results. Labs: Laboratory Results - last 24 hr 09/13/21 09/13/21 13:23 13:23 WBC 11.8 H RBC 4.58 Hgb 14.3 Hct 40.9 MCV 89.3 MCH 31.2 MCHC 35.0 RDW Std Deviation 38.4 RDW Coeff of Krystyna 11.9 Plt Count 238 MPV 9.6 Immature Gran % (Auto) 0.500 Neut % (Auto) 76.9 H Lymph % (Auto) 10.5 L [place] % (Auto) 6.1 Eos % (Auto) 5.3 H Baso % (Auto) 0.7 Absolute Neuts (auto) 9.1 H Absolute Lymphs (auto) 1.24 Nucleated RBC % 0 Sodium 139 Potassium 4.3 Chloride 102 Carbon Dioxide 27.0 Anion Gap 10 BUN 22 H Creatinine 1.52 H Estim Creat Clear Calc 21.79 Est GFR (MDRD) Af Amer 42 L Est GFR (MDRD) Non-Af 35 L BUN/Creatinine Ratio 14.5 Glucose 143 H Calcium 9.6 Troponin I High Sens 9 Radiography Diagnostic Testing: Clinical Impression(s) from Imaging Studies Brain CT 09/13/21 13:04 IMPRESSION: Scalp hematoma overlying the left frontal bone. Stable cerebral atrophy and old lacunar infarct in the left basal ganglion. Sinusitis. Electronically Signed: Pravin Gutiérrez MD at 14:12 EDT , Service support , Cervical Spine CT 09/13/21 13:04 IMPRESSION: Multilevel degenerative changes, as described above. Electronically Signed: Pravin Gutiérrez MD at 14:22 EDT , Service support , Facial/Sinus 09/13/21 13:04 IMPRESSION: Sinusitis. No fracture is seen. Electronically Signed: Pravin Gutiérrez MD at 14:18 EDT , Service support , Elbow X-Ray 09/13/21 13:45 IMPRESSION: No fracture is seen. Findings suggestive of a soft tissue laceration overlying the posterior proximal ulna with tiny radiopaque foreign bodies. Electronically Signed: Pravin Gutiérrez MD at 14:19 EDT , Service support , Discharge Plan Triage Chief Complaint: Fall ED Provider: Gregorio Saez Dx/Rx/DC Orders Clinical Impression: Fall at home, Closed head injury, Contusion of elbow, right, Bradycardia Instructions: Trauma Head, ED Bradycardia Prescriptions: New metoprolol succinate 50 mg tablet extended release 24 hr 50 mg PO DAILY Qty: 30 RF: 0 No Action albuterol sulfate [Ventolin HFA] 90 mcg/actuation HFA aerosol inhaler 1 puff INHALATION Q4H PRN (Reason: Shortness Of Breath) RF: 0 pantoprazole 40 mg tablet,delayed release (DR/EC) 40 mg PO PRN PRN (Reason: reflux) RF: 0 metoprolol succinate 100 mg tablet extended release 24 hr 100 mg PO QDAY RF: 0 fluoxetine 20 MG capsule 20 mg PO QHS RF: 0 loratadine 10 MG tablet 10 mg PO DAILY RF: 0 triamcinolone acetonide 1 SPRAY aerosol,spray 1 spray NS DAILY RF: 0 fluticasone propionate 1 PUFF inhaler 1 puff INHALATION BID RF: 0 pravastatin 40 MG tablet 40 mg PO QHS RF: 0 clopidogrel 75 MG tablet 75 mg PO DAILY RF: 0 aspirin 81 MG tablet,chewable 81 mg PO DAILY@0800 RF: 0 losartan 50 mg tablet 50 mg PO DAILY Qty: 90 RF: 3 Primary Care Provider: May Avitia Referrals: May Avitia MD [Primary Care Provider] - 3-5 Days if not improving Disposition Disposition: Home, Self Care
[2021-09-13 13:38] LABS: Absolute Lymphocyte Count 1.24 X10^3/uL (0.83-4.51); Absolute Neutrophil Count 9.1 X10^3/uL (2.0-7.7); Basophil# 0.08 X10^3/uL; Basophil% 0.7 % (0-1); Eosinophil# 0.62 X10^3/uL; Eosinophils% 5.3 % (0-5); Hematocrit 40.9 % (37-47); Hemoglobin 14.3 g/dL (12.0-15.0); Lymphocyte # 1.24 X10^3/ul (0.83-4.51); Lymphocyte % 10.5 % (19-41); Mean Corpuscular Hgb 31.2 pg (27.0-32.0); Mean Corpuscular Volume 89.3 fL (81-99); Mean Platelet Vol. 9.6 fl (6.2-12.0); Monocyte# 0.72 X10^3/uL; Monocyte% 6.1 % (0-10); NRBC Flagged by Analyzer 0 % (0-5); Neutrophil # 9.06 X10^3/uL (2.7-7.7); Neutrophil % 76.9 % (47-70); Platelet Count 238 K/mm3 (150-450); RBC Distribution Width CV 11.9 % (11.6-14.6); RBC Distribution Width SD 38.4 fl (35.1-43.9); Red Blood Count 4.58 M/mm3 (4.2-5.4); White Blood Count 11.8 K/mm3 (4.4-11.0)
--- NOTE | 2021-09-13 13:45 | RAD_ITS ---
STUDY: X-RAY - RIGHT ELBOW REASON FOR EXAM: Female, 86 years old. Trauma TECHNIQUE: 3 view(s) of the elbow. COMPARISON: None. FINDINGS: Normal visualized humerus, radius and ulna. Normal radiocapitellar and ulnotrochlear articulations. There appears to be soft tissue laceration overlying the proximal posterior ulna with tiny radiopacities. Findings suggest a small radiopaque foreign bodies within the soft tissues overlying the posterior aspect of the ulna. RAD/Elbow min 3 Views IMPRESSION: No fracture is seen. Findings suggestive of a soft tissue laceration overlying the posterior proximal ulna with tiny radiopaque foreign bodies. Electronically Signed: Pravin Gutiérrez MD at 14:19 EDT , Service support ,
[2021-09-13 13:59] LABS: Anion Gap 10 (5-15); BUN 22 mg/dL (7-18); BUN/Creat Ratio 14.5 RATIO (10-20); Calcium,Total 9.6 mg/dL (8.5-10.1); Chloride 102 mmol/L (98-107); Creatinine, Serum 1.52 mg/dL (0.55-1.02); EST Glomerular Filtration Rate 35 mL/min (>60); Est Glom Filt Rate - Afr Amer 42 mL/min (>60); Estimated Creatinine Clearance 21.79 ml/min; Glucose 143 mg/dL (74-106); Potassium 4.3 mmol/L (3.5-5.1); Sodium Level 139 mmol/L (136-145); Troponin-I HS 9 pg/mL (3.0-54.0)
[2021-09-13] MEDS: Ondansetron 4 MG/2 ML Vial IV (14:15)
[2021-09-13] MEDS: Acetaminophen 325 MG Tablet 650 MG PO (15:09)
[2021-09-13 15:30] VITALS: BP 186/75; PULSE 51; RESP 16; O2SAT 96
[2021-09-13 15:51] VITALS: BP 186/75; PULSE 51; RESP 14
== END 2021-09-13 16:05 | disposition home or self-care (01) ==
PROVIDERS: Emergency Provider Emergency Medicine; PCP Family Medicine
DX: S00.83XA Contusion of other part of head, initial encounter (principal); S50.01XA Contusion of right elbow, initial encounter; W01.0XXA Fall on same level from slipping, tripping and stumbling without subsequent striking against object, initial encounter; Y93.9 Activity, unspecified; Y92.59 Other trade areas as the place of occurrence of the external cause; Y99.9 Unspecified external cause status; R00.1 Bradycardia, unspecified; I10 Essential (primary) hypertension; E78.5 Hyperlipidemia, unspecified; F32.A Depression, unspecified; Z79.02 Long term (current) use of antithrombotics/antiplatelets; Z79.82 Long term (current) use of aspirin; Z79.899 Other long term (current) drug therapy; Z87.891 Personal history of nicotine dependence; Z86.73 Personal history of transient ischemic attack (TIA), and cerebral infarction without residual deficits
CPT/HCPCS: 70450; 70486; 72125; 73080; 80048; 84484; 85025; 93005; 96361; 96374; 99285; J7040; A4216; J2405

== ENCOUNTER → 2021-10-15 15:05 | Outpatient (CLI) | payer MEDICARE, OTHER, SELFPAY ==
[2021-10-15 18:17] LABS: AST(SGOT) 17 U/L (15-37); Alanine Aminotransfer ALT/SGPT 18 U/L (13-56); Anion Gap 7 (5-15); BUN 24 mg/dL (7-18); BUN/Creat Ratio 16.3 RATIO (10-20); Calcium,Total 9.1 mg/dL (8.5-10.1); Chloride 105 mmol/L (98-107); Cholesterol 268 mg/dL (200); Creatinine, Serum 1.47 mg/dL (0.55-1.02); EST Glomerular Filtration Rate 36 mL/min (>60); Est Glom Filt Rate - Afr Amer 44 mL/min (>60); Glucose 103 mg/dL (74-106); High Density Lipoprotein 29 mg/dL; Potassium 3.3 mmol/L (3.5-5.1); Sodium Level 139 mmol/L (136-145); T4 Total, Thyroxin 9.4 ug/dL (4.8-13.9); Triglycerides 596 mg/dL
== END ==
PROVIDERS: PCP Family Medicine; Referring Provider Family Medicine; Visit Provider Family Medicine
DX: E03.9 Hypothyroidism, unspecified (principal); E78.5 Hyperlipidemia, unspecified; I10 Essential (primary) hypertension
CPT/HCPCS: 36415; 80048; 80061; 84436; 84443; 84450; 84460

== ENCOUNTER → 2022-10-17 | Outpatient (CLI) | payer MEDICARE, OTHER, SELFPAY ==
[2022-10-17 18:41] LABS: Microalbumin:Creatinine Ratio 628.3 mg/g CRE (<30 mg/g CRE)
[2022-10-17 18:49] LABS: AST(SGOT) 23 U/L (15-37); Alanine Aminotransfer ALT/SGPT 24 U/L (13-56); Anion Gap 10 (5-15); BUN 27 mg/dL (7-18); BUN/Creat Ratio 24.1 RATIO (10-20); Calcium,Total 9.1 mg/dL (8.5-10.1); Chloride 107 mmol/L (98-107); Cholesterol 149 mg/dL (200); Creatinine, Serum 1.12 mg/dL (0.55-1.02); EST Glomerular Filtration Rate 49 mL/min (>60); Est Glom Filt Rate - Afr Amer 59 mL/min (>60); Glucose 64 mg/dL (74-106); High Density Lipoprotein 41 mg/dL; Potassium 3.8 mmol/L (3.5-5.1); Sodium Level 141 mmol/L (136-145); T4 Total, Thyroxin 12.3 ug/dL (4.8-13.9); Thyroid Stim Hormone (TSH) 0.06 uIU/mL (0.358-3.74); Triglycerides 213 mg/dL; Very Low Density Lipoprotein 43 mg/dL (5-40)
== END | disposition home or self-care (01) ==
LOC: MFPLAB 14:27
PROVIDERS: PCP Family Medicine; Visit Provider Family Medicine
DX: E78.5 Hyperlipidemia, unspecified (principal); I10 Essential (primary) hypertension; E03.9 Hypothyroidism, unspecified
CPT/HCPCS: 36415; 80048; 80061; 82043; 82570; 84436; 84443; 84450; 84460

== ENCOUNTER → 2023-04-17 | Outpatient (CLI) | payer MEDICARE, OTHER, SELFPAY ==
[2023-04-17 18:42] LABS: AST(SGOT) 24 U/L (15-37); Alanine Aminotransfer ALT/SGPT 22 U/L (13-56); Anion Gap 9 (5-15); BUN 22 mg/dL (7-18); Calcium,Total 9.5 mg/dL (8.5-10.1); Chloride 109 mmol/L (98-107); Cholesterol 157 mg/dL (200); EST Glomerular Filtration Rate 50 mL/min (>60); Est Glom Filt Rate - Afr Amer 61 mL/min (>60); Glucose 97 mg/dL (74-106); High Density Lipoprotein 38 mg/dL; Potassium 4.3 mmol/L (3.5-5.1); Sodium Level 140 mmol/L (136-145); T4 Total, Thyroxin 11.5 ug/dL (4.8-13.9); Thyroid Stim Hormone (TSH) 0.12 uIU/mL (0.358-3.74); Triglycerides 232 mg/dL; Very Low Density Lipoprotein 46 mg/dL (5-40)
== END | disposition home or self-care (01) ==
PROVIDERS: PCP Family Medicine; Visit Provider Family Medicine
DX: I10 Essential (primary) hypertension (principal); E78.5 Hyperlipidemia, unspecified; E03.9 Hypothyroidism, unspecified
CPT/HCPCS: 36415; 80048; 80061; 84436; 84443; 84450; 84460; 87086; 87088

== ENCOUNTER 2024-02-25 20:41 | Emergency (ER) | payer MEDICARE, OTHER, SELFPAY ==
[2024-02-25 20:43] VITALS: BP 117/51; PULSE 91; RESP 12; TEMP 35.7; O2SAT 99
--- NOTE | 2024-02-25 22:17 | CT_ITS ---
STUDY: CT ABDOMEN AND PELVIS WITHOUT CONTRAST REASON FOR EXAM: Female, 88 years old. Flank pain RADIATION DOSAGE (If Supplied By Facility): CTDIvol = ( 7.19 ) mGy, DLP = ( 323.44 ) mGycm TECHNIQUE: Transaxial images were obtained from the dome of the diaphragm to the symphysis pubis without oral contrast, and without intravenous contrast. Sagittal and coronal images were reconstructed. Individualized dose optimization techniques were used for this CT. COMPARISON: None. FINDINGS: 8 mm right lower lobe nodule. The visualized portions of the heart are within normal limits. Granulomatous calcifications in the liver. Nonvisualization of the gallbladder. No significant dilatation of the extrahepatic biliary system. Granulomatous calcifications in the spleen. Normal pancreas. Normal bilateral adrenal glands. Normal right kidney. Normal left kidney. Hiatal hernia. Normal small intestine. Diverticulosis of the colon. The appendix is not visualized. Calcified abdominal aorta. Normal inferior vena cava. Normal retroperitoneum. Normal urinary bladder. Normal abdominal wall. Degenerative vertebral changes and scoliosis. CT/Abdomen/Pelvis without Cont IMPRESSION: Right lower lobe nodule. Follow-up in 3-4 months if needed. Colonic diverticulosis. Hiatal hernia. No renal stones or hydronephrosis. Electronically Signed: Nick Ontiveros DO at 0:02 EDT ,
[2024-02-25] MEDS: 0.9% Normal Saline (500mL Bag) 500 ML 999 ML IV (22:38)
[2024-02-25] MEDS: Orphenadrine 60 MG/2 ML Ampul IV (22:38)
[2024-02-25] MEDS: Ketorolac 15 MG/ML Vial IV (22:38)
[2024-02-25 22:42] VITALS: PULSE 90; RESP 16; O2SAT 98
[2024-02-25 23:16] LABS: Anion Gap 8 (5-15); BUN 21 mg/dL (7-18); BUN/Creat Ratio 13.1 RATIO (10-20); Calcium,Total 9.1 mg/dL (8.5-10.1); Chloride 114 mmol/L (98-107); EST Glomerular Filtration Rate 32 mL/min (>60); Est Glom Filt Rate - Afr Amer 39 mL/min (>60); Glucose 116 mg/dL (74-106); Potassium 3.7 mmol/L (3.5-5.1); Sodium Level 144 mmol/L (136-145)
[2024-02-25 23:34] LABS: Absolute Lymphocyte Count 1.42 X10^3/uL (0.83-4.51); Absolute Neutrophil Count 4.6 X10^3/uL (2.0-7.7); Basophil# 0.05 X10^3/uL; Basophil% 0.7 % (0-1); Eosinophil# 0.18 X10^3/uL; Eosinophils% 2.5 % (0-5); Hematocrit 37.2 % (37-47); Hemoglobin 12.6 g/dL (12.0-15.0); Lymphocyte # 1.42 X10^3/ul (0.83-4.51); Lymphocyte % 19.8 % (19-41); Mean Corp Hgb Conc 33.9 g/dL (32-36); Mean Corpuscular Hgb 30.4 pg (27.0-32.0); Mean Corpuscular Volume 89.6 fL (81-99); Mean Platelet Vol. 9.7 fl (6.2-12.0); Monocyte# 0.89 X10^3/uL; Monocyte% 12.4 % (0-10); NRBC Flagged by Analyzer 0 % (0-5); Neutrophil # 4.61 X10^3/uL (2.7-7.7); Neutrophil % 64.3 % (47-70); Platelet Count 207 K/mm3 (150-450); RBC Distribution Width CV 12.3 % (11.6-14.6); RBC Distribution Width SD 40.5 fl (35.1-43.9); Red Blood Count 4.15 M/mm3 (4.2-5.4); White Blood Count 7.2 K/mm3 (4.4-11.0)
[2024-02-26] VITALS: BP 127/72; PULSE 89; RESP 18; O2SAT 97
[2024-02-26 01:04] LABS: Glucose, Dipstick Normal (Normal); Ketone-Dipstick 5 mg/dl (Negative); Leukocyte Esterase-Dipstick 500 /ul (Negative); Nitrite-Dipstick Positive (Negative); Occult Blood-Urine 250 /ul (Negative); Protein-Dipstick 100 mg/dl (Negative); Specific Gravity, Urine 1.025 (1.002-1.030); Urine Bilirubin Dipstick Negative (Negative); Urine Urobilinogen 8 mg/dl (Normal)
[2024-02-26 01:13] LABS: Color, Urine Yellow (Yellow); Red Blood Cells-Urine 25-50 SEEN /hpf (0-5); Urine Clarity Cloudy (Clear); White Blood Cells 25-50 SEEN /hpf (0-5)
[2024-02-26 01:14] LABS: Bacteria 4+ /hpf (None Seen); Coarse Granular Cast 0-5 SEEN /lpf (0-5 /lpf); Fine Granular Cast- Urine 0-5 SEEN /lpf (0-5); Hyaline Cast 10-25 SEEN /lpf (0-5); Mucous, Urine 2+ /hpf (<or=2+); Squamous Epithelial Cells - UA 10-25 SEEN /hpf (5-10); Transitional Epithelial - Ur 0-5 SEEN /hpf (0-5)
--- NOTE | 2024-02-26 02:27 | EDS_ITS ---
HPI History of Present Illness Chief Complaint: Back Informant: patient and family Narrative Narrative: Patient is 88-year-old female with past medical history of hypertension hyperlipidemia hypothyroidism and previous CVA. She states that over the last few days she has noticed left-sided back pain. She states that there is no associated trauma or excessive activity. She states that the pain does not seem to improve or worsen with any type of motion or position change. She denies any dysuria or hematuria. She denies any loss of bowel or bladder control or IV drug use. This evening she was with family who noticed that she was hunched over and when they inquired she told them her back hurt and with this they brought her in for evaluation [facility] Medical History (Updated 02/26/24 @ 04:[address] Aime Fernandes DO) Depression Essential (primary) hypertension History of asthma History of CVA (cerebrovascular accident) (07/2017) History of TIA (transient ischemic attack) Hyperlipidemia Meniere disease Obstructive hypertrophic cardiomyopathy Obstructive sleep apnea Stenosis of right vertebral artery Syncope and collapse Vertigo Home Medications aspirin 81 mg chewable tablet 81 mg PO DAILY@0800 health maintenance 07/13/17 [History Last Taken 01/05/18] clopidogrel 75 mg tablet 75 mg PO DAILY blood thinner 07/13/17 [History Last Taken 01/05/18] losartan 50 mg tablet 50 mg PO DAILY #90 tabs 10/27/21 [Rx Last Taken Unknown] levothyroxine 75 mcg capsule 75 mcg PO DAILY 02/10/22 [History Last Taken Unknown] rosuvastatin 20 mg tablet 20 mg PO DAILY 02/10/22 [History Last Taken Unknown] metoprolol succinate 50 mg tablet,extended release 24 hr 100 mg PO DAILY 02/10/23 [History Last Taken Unknown] sulfamethoxazole 800 mg-trimethoprim 160 mg tablet (Bactrim DS) 1 tab PO BID 7 days #14 tabs 02/26/24 [Rx Last Taken Unknown] Allergy/AdvReac Type Severity Reaction Status Date / Time hornet venom Allergy Anaphylaxis Verified 02/25/24 20:42 insect venom [yellow jacket] Allergy Anaphylaxis Verified 02/25/24 20:42 Penicillins Allergy Rash Verified 02/25/24 20:42 venom-wasp [Wasp Venom] Allergy Anaphylaxis Verified 02/25/24 20:42 [id number]-[id number] Reductase AdvReac muscle Verified 02/25/24 20:42 Inhibitor weakness [Iiyulfg-Tiw-Rcw Reductase Inhibitor] tramadol AdvReac Other Verified 02/25/24 20:42 Family History Mother , age 55 sudden cardiac CAD (coronary artery disease) Sudden cardiac Father , age 77 Lung cancer Sister carotid artery surgery CAD (coronary artery disease) Surgical History History of Wendy fundoplication Social History Smoking Status: Former smoker alcohol intake: current alcohol intake frequency: 0-2 drinks per day Alcohol type: wine substance use type: does not use caffeine: Yes Type: coffee Number of servings: 1 what type of physical activity do you participate in: none seatbelt use: always do you feel safe at home: Yes ROS ROS ED Constitutional Constitutional ED: Denies chills or fever(s) ENT ENT ED: Denies sore throat Cardiovascular Cardiovascular: Denies chest pain Respiratory/Chest Respiratory/Chest: Denies cough or dyspnea Gastrointestinal Gastrointestinal: Denies abdominal pain, diarrhea, nausea or vomiting Genitourinary Genitourinary ED: Denies dysuria, hematuria or urinary frequency Musculoskeletal Musculoskeletal: Reports back pain Integumentary Denies rash Neurologic Neurologic: Denies headache(s) Hematologic/Lymphatic Hematologic/Lymphatic: Reports easy bleeding and easy bruising EXAM Physical Exam Const Vital Signs: 02/25/24 20:43 02/25/24 20:43 02/25/24 22:42 Temperature 96.3 F L Temperature Source Temporal Pulse Rate 91 91 90 Respiratory Rate 12 12 16 Blood Pressure 117/51 L 117/51 L Blood Pressure Mean 73 73 Pulse Ox 99 99 98 Oxygen Delivery Method Room Air Room Air Room Air 02/26/24 00:00 Temperature Temperature Source Pulse Rate 89 Respiratory Rate 18 Blood Pressure 127/72 H Blood Pressure Mean 90 Pulse Ox 97 Oxygen Delivery Method Room Air Positive well nourished and well developed General Appearance ED: well developed; Negative for pallor HEENT HEENT Narrative: Normocephalic atraumatic Eyes PERRL and EOMs intact bilaterally General Eye ED: Negative for scleral icterus Neck supple Neck Narrative: No nuchal rigidity or meningeal signs Resp normal respiratory effort and clear to auscultation bilaterally Cardio regular rate and regular rhythm Rate: other Other Details: Radial and carotid pulses are equal and symmetric GI normal to inspection, nondistended, normoactive bowel sounds, non-tender, non- distended and no masses GI Narrative: No voluntary guarding or rigidity or pulsatile mass Auscultation: normoactive bowel sounds Palpation: soft Back/Spine Back/Spine Narrative: Positive left CVA pain There is no obvious bony deformity or step-off of the thoracic or lumbar spine. There is faint midline upper lumbar pain with palpation. No saddle anesthesia. No clonus or Babinski. Patellar reflexes are plus 1 out of 4 bilaterally. Negative straight leg raise. There is faint left upper paralumbar/thoracic pain with palpation however this is not greatly increased with any type of motion Extremity normal to inspection Neuro oriented x3, CN's II-XII intact bilaterally and no sensory deficits noted Sensorium / Orientation: alert Motor Exam: strength 5/5 throughout Psych mental status grossly normal Skin no rashes or lesions noted and no wounds Skin Narrative: No overlying soft tissue changes to suggest trauma or infection General Skin Exam: Negative for jaundice or pallor MDM MDM MDM Narrative Medical decision making narrative: Patient presented to the ER with stable vitals and reported unilateral back pain but no report of trauma or excessive activity. Differential diagnosis is for lumbosacral strain versus kidney stone versus UTI versus pyelonephritis versus compression fracture or spondylolisthesis. As the patient states that motion did not exacerbate her pain elected to workup for potential infectious cause or kidney stone. Lab work showed normal white count as well as no signs of acute kidney injury or severe electrolyte abnormality. CT scan without contrast showed no obvious intestinal pathology or kidney stone and documented degenerative disease of the lumbar spine without fracture or spondylolisthesis. Urine sample though was positive for nitrite with +4 bacteria. There is skin contamination but as patient has back pain with no reported trauma or excessive activity and no kidney stone or bony pathology I do feel this is most likely a t rue infection. Therefore the urine will be sent for culture and patient will be starting antibiotics. However she is not showing signs of urosepsis or acute kidney injury and therefore there is no need for admission and she is otherwise safe for discharge History & Record Review Discussion w/independent historian: Patient and Family Lab Data Attestation: I reviewed the patient's lab results. Labs: Laboratory Results - last 24 hr 02/25/24 02/25/24 01:00 22:50 WBC 7.2 RBC 4.15 L Hgb 12.6 Hct 37.2 MCV 89.6 MCH 30.4 MCHC 33.9 RDW Std Deviation 40.5 RDW Coeff of Krystyna 12.3 Plt Count 207 MPV 9.7 Immature Gran % (Auto) 0.300 Neut % (Auto) 64.3 Lymph % (Auto) 19.8 Clinch % (Auto) 12.4 H Eos % (Auto) 2.5 Baso % (Auto) 0.7 Absolute Neuts (auto) 4.6 Absolute Lymphs (auto) 1.42 Nucleated RBC % 0 Sodium 144 Potassium 3.7 Chloride 114 H Carbon Dioxide 22.0 Anion Gap 8 BUN 21 H Creatinine 1.60 H Est GFR (MDRD) Af Amer 39 L Est GFR (MDRD) Non-Af 32 L BUN/Creatinine Ratio 13.1 Glucose 116 H Calcium 9.1 Urine Color Yellow Urine Clarity Cloudy Urine pH 5.0 Ur Specific [place] 1.025 Urine Protein 100 H Urine Glucose (UA) Normal Urine Ketones 5 H Urine Occult Blood 250 H Urine Nitrite Positive H Urine Bilirubin Negative Urine Urobilinogen 8 H Ur Leukocyte Esterase 500 H Urine RBC 25-50 SEEN Urine WBC 25-50 SEEN Ur Squamous Epith Cells 10-25 SEEN Ur Transition Epith Cell 0-5 SEEN Urine Bacteria 4+ Hyaline Casts 10-25 SEEN Fine Granular Casts 0-5 SEEN Coarse Granular Casts 0-5 SEEN Urine Mucus 2+ Radiography Diagnostic Testing: Clinical Impression(s) from Imaging Studies Abdomen/Pelvis CT 02/25/24 22:17 IMPRESSION: Right lower lobe nodule. Follow-up in 3-4 months if needed. Colonic diverticulosis. Hiatal hernia. No renal stones or hydronephrosis. Electronically Signed: Nick Ontiveros DO at 0:02 EDT Reading Location ID and State: [facility] / [place] Tel [phone], Service support , Discharge Plan Triage Chief Complaint: Back ED Provider: Aime Fernandes Dx/Rx/DC Orders Clinical Impression: Acute pyelonephritis, Essential (primary) hypertension, Hypothyroidism, History of CVA (cerebrovascular accident) Instructions: UTIs Understanding, ED Pyelonephritis, Female (Adult) Prescriptions: New sulfamethoxazole-trimethoprim [Bactrim DS] 800-160 mg tablet 1 tab PO BID 7 Days Qty: 14 0RF No Action levothyroxine 75 mcg capsule 75 mcg PO DAILY rosuvastatin 20 mg tablet 20 mg PO DAILY metoprolol succinate 50 mg tablet extended release 24 hr 100 mg PO DAILY clopidogrel 75 MG tablet 75 mg PO DAILY Patient Comments: helps prevent blood clots aspirin 81 MG tablet,chewable 81 mg PO DAILY@0800 Patient Comments: heart health losartan 50 mg tablet 50 mg PO DAILY Qty: 90 3RF Primary Care Provider: May Avitia Referrals: May Avitia MD [Primary Care Provider] - Disposition Disposition: Home, Self Care Discharge Date/Time: 02/26/24 02:58
[2024-02-26] MEDS: Ceftriaxone 500 MG Vial IM (02:48)
== END 2024-02-26 02:58 | disposition home or self-care (01) ==
PROVIDERS: Emergency Provider Emergency Medicine; PCP Family Medicine; Visit Provider Emergency Medicine
DX: N10 Acute pyelonephritis (principal); I10 Essential (primary) hypertension; E03.9 Hypothyroidism, unspecified; G47.33 Obstructive sleep apnea (adult) (pediatric); Z87.891 Personal history of nicotine dependence; Z86.73 Personal history of transient ischemic attack (TIA), and cerebral infarction without residual deficits
CPT/HCPCS: 74176; 80048; 81001; 85025; 87077; 87086; 87088; 87186; 96361; 96372; 96374; 96375; 99283; J7040; A4216

== ENCOUNTER → 2024-06-03 | Outpatient (CLI) | payer MEDICARE, OTHER, SELFPAY ==
[2024-06-03 15:32] LABS: AST(SGOT) 39 U/L (15-37); Alanine Aminotransfer ALT/SGPT 30 U/L (13-56); Anion Gap 7 (5-15); BUN 19 mg/dL (7-18); BUN/Creat Ratio 13.5 RATIO (10-20); Calcium,Total 8.9 mg/dL (8.5-10.1); Chloride 110 mmol/L (98-107); Cholesterol 106 mg/dL (200); Creatinine, Serum 1.41 mg/dL (0.55-1.02); EST Glomerular Filtration Rate 38 mL/min (>60); Est Glom Filt Rate - Afr Amer 45 mL/min (>60); Glucose 196 mg/dL (74-106); High Density Lipoprotein 43 mg/dL; Potassium 3.9 mmol/L (3.5-5.1); Sodium Level 140 mmol/L (136-145); T4 Total, Thyroxin 10.1 ug/dL (4.8-13.9); Thyroid Stim Hormone (TSH) 0.28 uIU/mL (0.358-3.74); Triglycerides 163 mg/dL; Very Low Density Lipoprotein 33 mg/dL (5-40)
== END | disposition home or self-care (01) ==
LOC: MFPLAB 13:58
PROVIDERS: PCP Family Medicine; Visit Provider Family Medicine
DX: I10 Essential (primary) hypertension (principal); E78.5 Hyperlipidemia, unspecified; E03.9 Hypothyroidism, unspecified
CPT/HCPCS: 36415; 80048; 80061; 84436; 84443; 84450; 84460

== ENCOUNTER 2025-04-13 14:27 | Inpatient (IN) | payer MEDICARE, OTHER, SELFPAY ==
[2025-04-13] VITALS (8 sets, daily range): BP systolic 81–168; BP diastolic 49–70; PULSE 70–85; RESP 16–22; TEMP 36.3–36.6; O2SAT 97–100; BMI 21.0; BMI 20.8
[2025-04-13 15:23] LABS: Absolute Lymphocyte Count 1.37 X10^3/uL (0.83-4.51); Absolute Neutrophil Count 5.2 X10^3/uL (2.0-7.7); Basophil# 0.05 X10^3/uL; Basophil% 0.7 % (0-1); Eosinophil# 0.13 X10^3/uL; Eosinophils% 1.8 % (0-5); Hematocrit 33.4 % (37-47); Hemoglobin 11.2 g/dL (12.0-15.0); Lymphocyte # 1.37 X10^3/ul (0.83-4.51); Lymphocyte % 18.7 % (19-41); Mean Corp Hgb Conc 33.5 g/dL (32-36); Mean Corpuscular Hgb 31.3 pg (27.0-32.0); Mean Corpuscular Volume 93.3 fL (81-99); Mean Platelet Vol. 9.8 fl (6.2-12.0); Monocyte# 0.59 X10^3/uL; Monocyte% 8.1 % (0-10); NRBC Flagged by Analyzer 0 % (0-5); Neutrophil # 5.15 X10^3/uL (2.7-7.7); Neutrophil % 70.3 % (47-70); Platelet Count 166 K/mm3 (150-450); RBC Distribution Width CV 13.2 % (11.6-14.6); Red Blood Count 3.58 M/mm3 (4.2-5.4); White Blood Count 7.3 K/mm3 (4.4-11.0)
[2025-04-13] MEDS: 0.9% Normal Saline (1000mL) 1,000 ML 999 ML IV (15:30)
--- NOTE | 2025-04-13 15:33 | EX.ED.DYSGE1 ---
HPI <PIYUSH Sapp - Last Filed: 04/13/25 18:48> History of Present Illness Chief Complaint: Weakness Narrative Narrative: Please presenting today with her daughter due to concerns for generalized weakness that has been ongoing over the past week. Patient admits that she has not been eating or drinking much throughout the day, she is eating maybe a sandwich in total and drinking very little. She does appear dehydrated. She reports that she just does not have much of an appetite. She has been feeling lightheaded with ambulating and has felt weak in her legs which is making it hard for her to ambulate. She also reports feeling intermittently short of breath. She denies currently feeling short of breath. She denies any history of blood clots or recent surgery/travel/immobilization. She denies any recent illness, fevers, chills, abdominal pain, nausea, vomiting, and chest pain. She denies flulike symptoms. She has a PMH of CVA, HTN, and HLD. PFSH <PIYUSH Sapp - Last Filed: 04/13/25 18:48> PFSH Medical History Essential (primary) hypertension Stenosis of right vertebral artery Hyperlipidemia Obstructive hypertrophic cardiomyopathy Syncope and collapse History of CVA (cerebrovascular accident) (07/2017) Vertigo Depression Obstructive sleep apnea History of TIA (transient ischemic attack) Meniere disease History of asthma Home Medications ?Medication ?Instructions ?Recorded ?Last Taken ?Type aspirin 81 mg chewable tablet 81 mg PO DAILY@0800 health 07/13/17 04/12/25 History maintenance clopidogrel 75 mg tablet 75 mg PO DAILY blood thinner 07/13/17 04/12/25 History losartan 50 mg tablet 50 mg PO DAILY #90 tabs 10/27/21 04/12/25 Rx levothyroxine 25 mcg tablet 25 mcg PO DAILY 04/13/25 04/12/25 History metoprolol succinate 100 mg 100 mg PO DAILY 04/13/25 04/12/25 History tablet,extended release 24 hr rosuvastatin 40 mg tablet 40 mg PO DAILY 04/13/25 04/12/25 History Allergy/AdvReac Type Severity Reaction Status Date / Time hornet venom Allergy Anaphylaxis Verified 04/13/25 14:28 insect venom (yellow jacket) Allergy Anaphylaxis Verified 04/13/25 14:28 Penicillins Allergy Rash Verified 04/13/25 14:28 venom-wasp (Wasp Venom) Allergy Anaphylaxis Verified 04/13/25 14:28 Xirquey-FZE-PiE Reductase AdvReac muscle Verified 04/13/25 21:07 Inhibitor (Tylodds-Ekl-Hrn weakness Reductase Inhibitor) tramadol AdvReac Other Verified 04/13/25 14:28 Family History Mother , age 55 sudden cardiac CAD (coronary artery disease) Sudden cardiac Father , age 77 Lung cancer Sister carotid artery surgery CAD (coronary artery disease) Surgical History (Updated 04/13/25 @ 20:18 by Syeda Camilo) Hx of total knee replacement History of appendectomy History of Wendy fundoplication Social History (Updated 04/13/25 @ 19:[address] Lilia Tom MD) household members: spouse Smoking Status: Former smoker alcohol intake: current alcohol intake frequency: 0-2 drinks per day Alcohol type: wine substance use type: does not use caffeine: Yes Type: coffee Number of servings: 1 what type of physical activity do you participate in: none seatbelt use: always do you feel safe at home: Yes ROS <PIYUSH Sapp - Last Filed: 04/13/25 18:48> ROS ED Constitutional Constitutional ED: Denies chills or fever(s) Cardiovascular Cardiovascular: Denies chest pain Respiratory/Chest Respiratory/Chest: Denies cough or dyspnea Gastrointestinal Gastrointestinal: Denies abdominal pain, diarrhea, nausea or vomiting Genitourinary Genitourinary ED: Denies dysuria, hematuria or urinary urgency Musculoskeletal Musculoskeletal: Denies arthralgias or myalgias Integumentary Denies rash Neurologic Neurologic: Reports weakness EXAM <PIYUSH Sapp - Last Filed: 04/13/25 18:48> Physical Exam Const Vital Signs: 04/13/25 14:28 04/13/25 14:31 04/13/25 14:55 Temperature 97.8 F 97.8 F Temperature Source Oral Oral Pulse Rate 85 85 Pulse Rate [Lying] Respiratory Rate 18 18 Respiratory Effort Normal Non-Labored Respiratory Pattern Normal Blood Pressure 132/64 H 132/64 H Blood Pressure [Lying] Blood Pressure Mean 86 86 Blood Pressure Mean [Lying] Pulse Ox 100 100 Oxygen Delivery Method Room Air Room Air 04/13/25 15:26 04/13/25 16:28 04/13/25 18:00 Temperature Temperature Source Pulse Rate 70 72 Pulse Rate [Lying] 76 Respiratory Rate 17 Respiratory Effort Respiratory Pattern Blood Pressure 126/61 H 147/63 H Blood Pressure [Lying] 81/49 L Blood Pressure Mean 82 91 Blood Pressure Mean [Lying] 59 Pulse Ox 98 98 Oxygen Delivery Method Room Air Room Air 04/13/25 18:41 Temperature 97.8 F Temperature Source Pulse Rate 72 Pulse Rate [Lying] Respiratory Rate 16 Respiratory Effort Respiratory Pattern Blood Pressure 151/65 H Blood Pressure [Lying] Blood Pressure Mean 93 Blood Pressure Mean [Lying] Pulse Ox 99 Oxygen Delivery Method Positive well nourished, well developed and no apparent distress General Appearance ED: well developed HEENT Reports normocephalic, head/scalp atraumatic and dry mucous membranes Mouth ED: Yes dry mucous membranes Mouth: dry mucous membranes Eyes PERRL and EOMs intact bilaterally Neck full ROM and supple Chest Wall inspection of chest normal Resp normal respiratory effort and clear to auscultation bilaterally Cardio regular rate and regular rhythm Cardio Narrative: Systolic murmur GI soft to palpation, non-tender, non-distended and no masses Back/Spine normal ROM and normal to inspection Extremity normal to inspection and full ROM Neuro oriented x3, CN's II-XII intact bilaterally, moves all extremities, no focal motor deficits and no sensory deficits noted Sensorium / Orientation: awake and alert Psych mental status grossly normal and thought process normal Skin no rashes or lesions noted and no wounds <Dr. Ant Vale, DO - Last Filed: 04/13/25 23:28> Physical Exam Const Vital Signs: 04/13/25 14:28 04/13/25 14:31 04/13/25 14:55 Temperature 97.8 F 97.8 F Temperature Source Oral Oral Pulse Rate 85 85 Pulse Rate [Lying] Respiratory Rate 18 18 Respiratory Effort Normal Non-Labored Respiratory Pattern Normal Blood Pressure 132/64 H 132/64 H Blood Pressure [Lying] Blood Pressure Mean 86 86 Blood Pressure Mean [Lying] Pulse Ox 100 100 Oxygen Delivery Method Room Air Room Air 04/13/25 15:26 04/13/25 16:28 04/13/25 18:00 Temperature Temperature Source Pulse Rate 70 72 Pulse Rate [Lying] 76 Respiratory Rate 17 Respiratory Effort Respiratory Pattern Blood Pressure 126/61 H 147/63 H Blood Pressure [Lying] 81/49 L Blood Pressure Mean 82 91 Blood Pressure Mean [Lying] 59 Pulse Ox 98 98 Oxygen Delivery Method Room Air Room Air 04/13/25 18:41 Temperature 97.8 F Temperature Source Pulse Rate 72 Pulse Rate [Lying] Respiratory Rate 16 Respiratory Effort Respiratory Pattern Blood Pressure 151/65 H Blood Pressure [Lying] Blood Pressure Mean 93 Blood Pressure Mean [Lying] Pulse Ox 99 Oxygen Delivery Method [facility] <PIYUSH Sapp - Last Filed: 04/13/25 18:48> [facility] Narrative Medical decision making narrative: Patient presenting today with generalized weakness that has been ongoing over the past month. She does appear very dry, she will be given IV fluids. She denies any history of CHF. Aside from feeling weak she really has no other acute complaints aside from feeling lightheaded with ambulating. Suspect she is getting orthostatic, orthostatic vital signs will be obtained. Generalized workup will be obtained to assess for leukocytosis, anemia, electrolyte abnormality, hepatobiliary etiology, JACQUELYN, ACS, UTI, thyroid dysfunction. Chest x-ray will be obtained to assess for pneumonia and other cardiopulmonary abnormality. CBC reveals a hemoglobin of 11.2, her creatinine is 1.61 which is near her baseline. Elevated transaminases. She does appear to be a hypothyroid, she thinks that she has been taking her levothyroxine as prescribed but daughter thinks she may be missing doses. Her initial troponin is 86, repeat is 72. She denies any chest pain or shortness of breath. EKG does not show any ischemia or ST elevation. She also has a UTI which will be cultured and she will be treated with with Rocephin. Chest x-ray negative for pneumonia. Given her UTI, generalized weakness, difficulty ambulating, and elevated troponins I do feel she would benefit from admission to the hospital for further treatment. After speaking with Dr. Tom she will be admitted in stable condition. Lab Data Attestation: I reviewed the patient's lab results. Labs: Laboratory Results - last 24 hr 04/13/25 04/13/25 04/13/25 15:15 16:15 16:40 WBC 7.3 RBC 3.58 L Hgb 11.2 L Hct 33.4 L MCV 93.3 MCH 31.3 MCHC 33.5 RDW Std Deviation 45.0 H RDW Coeff of Krystyna 13.2 Plt Count 166 MPV 9.8 Immature Gran % (Auto) 0.400 Neut % (Auto) 70.3 H Lymph % (Auto) 18.7 L [place] % (Auto) 8.1 Eos % (Auto) 1.8 Baso % (Auto) 0.7 Absolute Neuts (auto) 5.2 Absolute Lymphs (auto) 1.37 Nucleated RBC % 0 PT Cancelled 17.0 H INR Cancelled 1.4 Sodium 142 Potassium 3.9 Chloride 110 H Carbon Dioxide 20.7 L Anion Gap 12 BUN 27 H Creatinine 1.61 H Estim Creat Clear Calc 19.47 L Est GFR (MDRD) Non-Af 31 L BUN/Creatinine Ratio 16.6 Glucose 165 H Calcium 9.5 Magnesium 2.4 H Total Bilirubin 0.86 AST 170 H ALT 127 H Alkaline Phosphatase 53 Troponin T High Sens 86 H* Troponin T Hi Sens 2 Hr Total Protein 6.2 Albumin 3.8 Globulin 2.4 Albumin/Globulin Ratio 1.6 TSH 4.720 H Free T4 1.00 Free T3 pg/dL 1.6 L Urine Color Yellow Urine Clarity Sl. Cloudy Urine pH 6.0 Ur Specific [place] 1.020 Urine Protein 100 H Urine Glucose (UA) Normal Urine Ketones Negative Urine Occult Blood 250 H Urine Nitrite Positive H Urine Bilirubin Negative Urine Urobilinogen 4 H Ur Leukocyte Esterase 500 H Urine RBC 25-50 SEEN Urine WBC 25-50 SEEN Ur Squamous Epith Cells 0-5 SEEN Ur Renal Epithelial Cell 0-5 SEEN Urine Bacteria 4+ Fine Granular Casts 0-5 SEEN Coarse Granular Casts 0-5 SEEN Urine Mucus 0 SEEN 04/13/25 17:15 WBC RBC Hgb Hct MCV MCH MCHC RDW Std Deviation RDW Coeff of Krystyna Plt Count MPV Immature Gran % (Auto) Neut % (Auto) Lymph % (Auto) [place] % (Auto) Eos % (Auto) Baso % (Auto) Absolute Neuts (auto) Absolute Lymphs (auto) Nucleated RBC % PT INR Sodium Potassium Chloride Carbon Dioxide Anion Gap BUN Creatinine Estim Creat Clear Calc Est GFR (MDRD) Non-Af BUN/Creatinine Ratio Glucose Calcium Magnesium 1.9 Total Bilirubin AST ALT Alkaline Phosphatase Troponin T High Sens Troponin T Hi Sens 2 Hr 72 H* Total Protein Albumin Globulin Albumin/Globulin Ratio TSH Free T4 Free T3 pg/dL Urine Color Urine Clarity Urine pH Ur Specific [place] Urine Protein Urine Glucose (UA) Urine Ketones Urine Occult Blood Urine Nitrite Urine Bilirubin Urine Urobilinogen Ur Leukocyte Esterase Urine RBC Urine WBC Ur Squamous Epith Cells Ur Renal Epithelial Cell Urine Bacteria Fine Granular Casts Coarse Granular Casts Urine Mucus Radiography X-Ray: Read by ED Physician Diagnostic Testing: Clinical Impression(s) from Imaging Studies Chest X-Ray 04/13/25 15:40 IMPRESSION: No acute cardiopulmonary process. Reading [facility] E[facility] Initial EKG: Comments: 67 bpm, sinus rhythm with first-degree AV block, no ST elevation, interpreted by attending ED physician <Dr. Ant Vale, DO - Last Filed: 04/13/25 23:28> [facility] MDM Narrative Medical decision making narrative: Patient presenting today with generalized weakness that has been ongoing over the past month. She does appear very dry, she will be given IV fluids. She denies any history of CHF. Aside from feeling weak she really has no other acute complaints aside from feeling lightheaded with ambulating. Suspect she is getting orthostatic, orthostatic vital signs will be obtained. Generalized workup will be obtained to assess for leukocytosis, anemia, electrolyte abnormality, hepatobiliary etiology, JACQUELYN, ACS, UTI, thyroid dysfunction. Chest x-ray will be obtained to assess for pneumonia and other cardiopulmonary abnormality. CBC reveals a hemoglobin of 11.2, her creatinine is 1.61 which is near her baseline. Elevated transaminases. She does appear to be a hypothyroid, she thinks that she has been taking her levothyroxine as prescribed but daughter thinks she may be missing doses. Her initial troponin is 86, repeat is 72. She denies any chest pain or shortness of breath. EKG does not show any ischemia or ST elevation. She also has a UTI which will be cultured and she will be treated with with Rocephin. Chest x-ray negative for pneumonia. Given her UTI, generalized weakness, difficulty ambulating, and elevated troponins I do feel she would benefit from admission to the hospital for further treatment. After speaking with Dr. Tom she will be admitted in stable condition. Supervisory Physician Note Patient was seen and examined with the Advanced Practice Provider. Nursing notes and vital signs have been reviewed. Pertinent old records have been reviewed. I agree with the essential elements of the SEAN's history, physical exam, assessment, and plan. The differential diagnosis and management options were discussed with the SEAN. I participated in determining and agree with the management, procedures, final impression and disposition as documented. See changes noted by me. Please see addendum or separate note for any additional details. 89-year-old female with history of CVA, HTN, HLD, hypothyroidism presents for evaluation of generalized weakness and decreased p.o. intake. Denies any fever, chills, chest pain, abdominal pain, nausea, vomiting, dysuria, diarrhea, constipation. Gen: A&O x3, NAD Head: Normocephalic, atraumatic Eyes: No sclera icterus, conjunctiva clear, PERRL, EOMI ENT: Very dry mucous membranes Neck: Trachea midline, No JVD CV: RRR, no murmurs, no peripheral edema Resp: Lungs CTA BL, no w/r/c GI: Abd soft, non-distended, non-tender, no r/r/g Musc: Moves all extremity, no deformity Skin: Warm, dry Neuro: Alert, oriented, grossly intact, sensation intact Psych: Cooperative, appropriate mood and affect On presentation, patient was normotensive with a blood pressure 132/64. However during my evaluation she was hypotensive and SBP into the low 80s/high 70s. Suspect that this is secondary to dehydration as patient not endorsing any infectious type symptoms and is clinically dry on physical exam. NS bolus ordered. General workup ordered as differential diagnosis is broad including dehydration, JACQUELYN, electrolyte abnormality, hypothyroidism, UTI, ACS. EKG was personally reviewed and interpreted by me, ED physician. EKG shows normal sinus rhythm with AV block. Known right bundle branch block. Heart rate 67. Chest x-ray was personally reviewed interpreted by me, ED physician pneumonia, effusion, cardiomegaly, pneumothorax. CBC without leukocytosis. Patient has anemia of 11.2. History of anemia in the past. Denies any bloody bowel movements. CMP shows baseline renal insufficiency. Patient has transaminitis. She is not endorsing any abdominal pain and nontender on physical exam. Magnesium level unremarkable. Troponin 86. Patient not having any chest pain. No acute ischemic changes on EKG. Repeat 72. TSH elevated at 4.7 however free T4 normal. Subclinical hypothyroidism. UA positive for UTI. Urine culture sent. Rocephin started. Patient warrants admission. Accepted to the hospitalist service. Impression: 1. UTI 2. Dehydration 3. Hypotension, resolved, secondary to #2 4. Elevated troponin 5. Transaminitis 6. Weakness Lab Data Labs: Laboratory Results - last 24 hr 04/13/25 04/13/25 04/13/25 15:15 16:15 16:40 WBC 7.3 RBC 3.58 L Hgb 11.2 L Hct 33.4 L MCV 93.3 MCH 31.3 MCHC 33.5 RDW Std Deviation 45.0 H RDW Coeff of Krystyna 13.2 Plt Count 166 MPV 9.8 Immature Gran % (Auto) 0.400 Neut % (Auto) 70.3 H Lymph % (Auto) 18.7 L [place] % (Auto) 8.1 Eos % (Auto) 1.8 Baso % (Auto) 0.7 Absolute Neuts (auto) 5.2 Absolute Lymphs (auto) 1.37 Nucleated RBC % 0 PT Cancelled 17.0 H INR Cancelled 1.4 Sodium 142 Potassium 3.9 Chloride 110 H Carbon Dioxide 20.7 L Anion Gap 12 BUN 27 H Creatinine 1.61 H Estim Creat Clear Calc 19.47 L Est GFR (MDRD) Non-Af 31 L BUN/Creatinine Ratio 16.6 Glucose 165 H Calcium 9.5 Magnesium 2.4 H Total Bilirubin 0.86 AST 170 H ALT 127 H Alkaline Phosphatase 53 Troponin T High Sens 86 H* Troponin T Hi Sens 2 Hr Total Protein 6.2 Albumin 3.8 Globulin 2.4 Albumin/Globulin Ratio 1.6 TSH 4.720 H Free T4 1.00 Free T3 pg/dL 1.6 L Urine Color Yellow Urine Clarity Sl. Cloudy Urine pH 6.0 Ur Specific [place] 1.020 Urine Protein 100 H Urine Glucose (UA) Normal Urine Ketones Negative Urine Occult Blood 250 H Urine Nitrite Positive H Urine Bilirubin Negative Urine Urobilinogen 4 H Ur Leukocyte Esterase 500 H Urine RBC 25-50 SEEN Urine WBC 25-50 SEEN Ur Squamous Epith Cells 0-5 SEEN Ur Renal Epithelial Cell 0-5 SEEN Urine Bacteria 4+ Fine Granular Casts 0-5 SEEN Coarse Granular Casts 0-5 SEEN Urine Mucus 0 SEEN 04/13/25 17:15 WBC RBC Hgb Hct MCV MCH MCHC RDW Std Deviation RDW Coeff of Krystyna Plt Count MPV Immature Gran % (Auto) Neut % (Auto) Lymph % (Auto) [place] % (Auto) Eos % (Auto) Baso % (Auto) Absolute Neuts (auto) Absolute Lymphs (auto) Nucleated RBC % PT INR Sodium Potassium Chloride Carbon Dioxide Anion Gap BUN Creatinine Estim Creat Clear Calc Est GFR (MDRD) Non-Af BUN/Creatinine Ratio Glucose Calcium Magnesium 1.9 Total Bilirubin AST ALT Alkaline Phosphatase Troponin T High Sens Troponin T Hi Sens 2 Hr 72 H* Total Protein Albumin Globulin Albumin/Globulin Ratio TSH Free T4 Free T3 pg/dL Urine Color Urine Clarity Urine pH Ur Specific [place] Urine Protein Urine Glucose (UA) Urine Ketones Urine Occult Blood Urine Nitrite Urine Bilirubin Urine Urobilinogen Ur Leukocyte Esterase Urine RBC Urine WBC Ur Squamous Epith Cells Ur Renal Epithelial Cell Urine Bacteria Fine Granular Casts Coarse Granular Casts Urine Mucus Radiography Diagnostic Testing: Clinical Impression(s) from Imaging Studies Chest X-Ray 04/13/25 15:40 IMPRESSION: No acute cardiopulmonary process. Reading Location: [id number] Discharge Plan Dx/Rx/DC Orders Clinical Impression: Generalized weakness, UTI (urinary tract infection), Acute dehydration Disposition Disposition: Acute Care Hospital [facility] Discharge Date/Time: 04/13/25 19:33
--- NOTE | 2025-04-13 15:40 | RAD_ITS ---
EXAM: XR Chest, 2 Views CLINICAL INDICATION: WEAKNESS TECHNIQUE: Frontal and lateral views of the chest. COMPARISON: No relevant prior studies available. FINDINGS: LUNGS AND PLEURAL SPACES: Unremarkable. No consolidation. No pneumothorax. HEART: Unremarkable. No cardiomegaly. MEDIASTINUM: Unremarkable. Normal mediastinal contour. BONES/JOINTS: Unremarkable. No acute fracture. RAD/Chest PA and Lateral IMPRESSION: No acute cardiopulmonary process. Reading Location: [id number]
[2025-04-13 15:55] LABS: ALB/GLOB Ratio 1.6 RATIO (0.9-2.4); AST(SGOT) 170 U/L (<=31); Alanine Aminotransfer ALT/SGPT 127 U/L (<=34); Albumin, Serum 3.8 g/dL (3.4-4.8); Alkaline Phosphatase 53 U/L (35-104); Anion Gap 12 (5-15); BUN 27 mg/dL (4-19); BUN/Creat Ratio 16.6 RATIO (10-20); Calcium,Total 9.5 mg/dL (7.6-11.0); Carbon Dioxide 20.7 mmol/L (21.0-32.0); Chloride 110 mmol/L (98-108); Creatinine, Serum 1.61 mg/dL (0.70-1.20); EST Glomerular Filtration Rate 31 (>60); Estimated Creatinine Clearance 19.47 ml/min (50-250); Free T3 1.6 pg/mL (2.18-3.98); Globulin 2.4 g/dL (2.2-4.2); Glucose 165 mg/dL (70-99); Magnesium 2.4 mg/dL (1.5-2.2); Potassium 3.9 mmol/L (3.3-5.1); Protein, Total 6.2 g/dL (5.9-8.4); Sodium Level 142 mmol/L (133-145); Total Bilirubin 0.86 mg/dL (0.00-1.30)
[2025-04-13 16:00] LABS: Troponin T High Sensitivity 86 ng/L (<=14)
--- NOTE | 2025-04-13 16:03 | EKG12_ITS ---
Test Reason : Blood Pressure : */* mmHG Vent. Rate : 67 BPM Atrial Rate : 67 BPM P-R Int : 222 ms QRS Dur : 110 ms QT Int : 466 ms P-R-T Axes : 32 49 34 degrees QTcB Int : 492 ms Sinus rhythm with 1st degree A-V block Right bundle branch block Abnormal ECG Confirmed by AUNG DAILY, GUSTABO ([id number]), story editor AYALA PARSONS ([id number]) on 04/14/2025 9:27:32 AM Referred By: Confirmed By: GUSTABO HORAN MD
[2025-04-13] MEDS: Aspirin 325 MG Tablet PO (16:06)
[2025-04-13 16:23] LABS: Mucous, Urine 0 SEEN /hpf (<or=2+)
[2025-04-13 16:27] LABS: Color, Urine Yellow (Yellow); Glucose, Dipstick Normal (Normal); Ketone-Dipstick Negative (Negative); Leukocyte Esterase-Dipstick 500 /ul (Negative); Nitrite-Dipstick Positive (Negative); Occult Blood-Urine 250 /ul (Negative); Protein-Dipstick 100 mg/dl (Negative); Urine Bilirubin Dipstick Negative (Negative); Urine Clarity Sl. Cloudy (Clear); Urine Urobilinogen 4 mg/dl (Normal)
[2025-04-13 16:49] LABS: Red Blood Cells-Urine 25-50 SEEN /hpf (0-5); White Blood Cells 25-50 SEEN /hpf (0-5)
[2025-04-13 16:50] LABS: Bacteria 4+ /hpf (None Seen); Renal Epithelial Cells 0-5 SEEN /hpf (0-5); Squamous Epithelial Cells - UA 0-5 SEEN /hpf (5-10)
[2025-04-13 16:51] LABS: Coarse Granular Cast 0-5 SEEN /lpf (0-5 /lpf); Fine Granular Cast- Urine 0-5 SEEN /lpf (0-5)
[2025-04-13] MEDS: Ceftriaxone 1 GM/50 ML BAG IV (16:51)
[2025-04-13 16:59] LABS: International Normalized Ratio 1.4
[2025-04-13 17:54] LABS: Troponin T High Sens 2 HR 72 ng/L (<=14)
--- NOTE | 2025-04-13 18:40 | HP.PCM.HOS_ITS ---
HPI - General General Date of Admission: 04/13/25 Date of Service: 04/13/25 Chief Complaint: Weakness, debility. 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 Workup in the ED included T97.8, heart rate 85, BP 132/64, respiratory rate 18, no percent room air with most recent repeat vitals heart rate 72, BP 147/63, respiratory rate 17, 98% on room air, CBC with WBC 7.3, hemoglobin 11.2, MCV 93.3, plate 166 without marked shift, coags with INR 1.4, PT 17, CMP with chloride 110, carbon oxide 20.7, BUN/creatinine 27/1.61, GFR 31, glucose 165, magnesium 2.4, hepatic profile with AST/LT 170/127, alk phos 0.83, troponin initial 86 with repeat delta 72, TSH 4.720, free T4 1, free T31.6, urinalysis with specific gravity 1.020, protein 100, occult blood 250, positive nitrite, leukocyte Estrace 500, urine RBCs and WBCs 25-50 with 4+ urine bacteria, urine culture pending per ED, chest x-ray with no acute cardiopulmonary findings, EKG with SR without acute evidence of ischemia. In ED patient ministered full-strength aspirin therapy, 1 L normal saline, Rocephin 1 g IV x 1. [facility] Medical History Essential (primary) hypertension Stenosis of right vertebral artery Hyperlipidemia Obstructive hypertrophic cardiomyopathy Syncope and collapse History of CVA (cerebrovascular accident) (07/2017) Vertigo Depression Obstructive sleep apnea History of TIA (transient ischemic attack) Meniere disease History of asthma Home Medications ?Medication ?Instructions ?Recorded ?Last Taken ?Type aspirin 81 mg chewable tablet 81 mg PO DAILY@0800 heal th 07/13/17 04/12/25 History maintenance clopidogrel 75 mg tablet 75 mg PO DAILY blood thinner 07/13/17 04/12/25 History losartan 50 mg tablet 50 mg PO DAILY #90 tabs 12/0 12/1704/12/25 Rx levothyroxine 25 mcg tablet 25 mcg PO DAILY 04/13/25 0 04/12/25 History metoprolol succinate 100 mg 100 mg PO DAILY 04/13/25 0 04/12/25 History tablet,extended release 24 hr rosuvastatin 40 mg tablet 40 mg PO DAILY 04/13/2503/27 History Allergy/AdvReac Type Severity Reaction Status Date / Time hornet venom Allergy Anaphylaxis Verified 04/13/25 14:28 insect venom (yellow jacket) Allergy Anaphylaxis Verified 04/13/25 14:28 Penicillins Allergy Rash Verified 04/13/25 14:28 venom-wasp (Wasp Venom) Allergy Anaphylaxis Verified 04/13/25 14:28 [id number]-YaH Reductase AdvReac muscle Verified 04/13/25 14:28 Inhibitor (Hofymzu-Aot-Wcg weakness Reductase Inhibitor) tramadol AdvReac Other Verified 04/13/25 14:28 Family History Mother , age 55 sudden cardiac CAD (coronary artery disease) Sudden cardiac Father , age 77 Lung cancer Sister carotid artery surgery CAD (coronary artery disease) Surgical History History of Wendy fundoplication Social History (Updated 04/13/25 @ 19:[address] Lilia Tom MD) household members: spouse Smoking Status: Former smoker alcohol intake: current alcohol intake frequency: 0-2 drinks per day Alcohol type: wine substance use type: does not use caffeine: Yes Type: coffee Number of servings: 1 what type of physical activity do you participate in: none seatbelt use: always do you feel safe at home: Yes ROS ROS Narrative Admission Review of Systems: CONSTITUTIONAL: No weight loss, fever, chills, + weakness or fatigue. HEENT: + Lightheadedness. Eyes: No visual loss, blurred vision, double vision or yellow sclerae. Ears, Nose, Throat: No hearing loss, sneezing, congestion, runny nose or sore throat. SKIN: No rash or itching, lesions, wounds. CARDIOVASCULAR: + Lightheadedness. No chest pain, chest pressure or chest discomfort, palpitations, edema, orthopnea, syncopal events. RESPIRATORY: + Occasional episodes of trended dyspnea. No cough or sputum, wheezing, hemoptysis. GASTROINTESTINAL: + Anorexia. No nausea, vomiting or diarrhea, abdominal pain, melena, BRBPR. GENITOURINARY: + Decreased UOP. No dysuria, frequency, urgency or retention. NEUROLOGICAL: + Lightheadedness. No headache, syncope, paralysis, ataxia, numbness or tingling in the extremities, focal weakness, change in bowel or bladder control, seizure. MUSCULOSKELETAL: + muscle, back pain, joint pain or stiffness. HEMATOLOGIC: + Chronic anemia, easy bleeding/bruising. LYMPHATICS: No enlarged nodes. No history of splenectomy. PSYCHIATRIC: + History of anxiety and depression. ENDOCRINOLOGIC: No reports of sweating, cold or heat intolerance. No polyuria or polydipsia. ALLERGIES: + History of anaphylaxis. Vital Signs Vital Signs Vital Signs: 04/13/25 14:28 04/13/25 14:31 04/13/25 14:55 Temperature 97.8 F 97.8 F Temperature Source Oral Oral Pulse Rate 85 85 Pulse Rate [Lying] Respiratory Rate 18 18 Respiratory Effort Normal Non-Labored Respiratory Pattern Normal Blood Pressure 132/64 H 132/64 H Blood Pressure [Lying] Blood Pressure Mean 86 86 Blood Pressure Mean [Lying] Pulse Ox 100 100 Oxygen Delivery Method Room Air Room Air 04/13/25 15:26 04/13/25 16:28 04/13/25 18:00 Temperature Temperature Source Pulse Rate 70 72 Pulse Rate [Lying] 76 Respiratory Rate 17 Respiratory Effort Respiratory Pattern Blood Pressure 126/61 H 147/63 H Blood Pressure [Lying] 81/49 L Blood Pressure Mean 82 91 Blood Pressure Mean [Lying] 59 Pulse Ox 98 98 Oxygen Delivery Method Room Air Room Air Weight Weight: 115 lb 1.301 oz Body Mass Index (BMI) 21.0 Physical Exam Narrative Physical Examination: General: Awake, alert, oriented x 3 and cooperative, seated upright in the ED bed, fatigued, no acute distress. Skin: Normal color, normal turgor, no icterus, no cyanosis except noted occasional staged bruising/abrasions. HEENT: AT/NC, EOMI, PERRLA, dry MM, no carotid bruits or JVD noted. Lungs: Diminished, bases, appropriate effort, no rales, ronchi or wheezing. Heart: Regular rate and rhythm; no gallop, rub audible. Abdomen: Soft, NTTP, ND, hyperactive BS, no appreciated HSM. Extremities: No cyanosis, clubbing, or edema. Neurological: Patient awake, alert, oriented as noted, cognitive function appears baseline intact; pupils equally reactive to light and accommodation, cranial nerves grossly normal, moving all 4 extremities, no focal deficits, strength moderately to severely globally decreased. Psychiatric: Affect appears fatigued otherwise normal, no acute evidence of depressive or anxiety feelings but does have chart documented history. Results Lab / Micro Data 04/13/25 15:15 04/13/25 15:15 Labs: Laboratory Results - last 24 hr 04/13/25 15:15: WBC 7.3, RBC 3.58 L, Hgb 11.2 L, Hct 33.4 L, MCV 93.3, MCH 31.3, MCHC 33.5, RDW Std Deviation 45.0 H, RDW Coeff of Krystyna 13.2, Plt Count 166, MPV 9.8, Immature Gran % (Auto) 0.400, Neut % (Auto) 70.3 H, Lymph % (Auto) 18.7 L, [place] % (Auto) 8.1, Eos % (Auto) 1.8, Baso % (Auto) 0.7, Absolute Neuts (auto) 5.2, Absolute Lymphs (auto) 1.37, Nucleated RBC % 0, Sodium 142, Potassium 3.9, Chloride 110 H, Carbon Dioxide 20.7 L, Anion Gap 12, BUN 27 H, Creatinine 1.61 H , Estim Creat Clear Calc 19.47 L, Est GFR (MDRD) Non-Af 31 L, BUN/Creatinine Ratio 16.6, Glucose 165 H, Calcium 9.5, Magnesium 2.4 H, Total Bilirubin 0.86, A ST 170 H, ALT 127 H, Alkaline Phosphatase 53, Troponin T High Sens 86 H*, Total Protein 6.2, Albumin 3.8, Globulin 2.4, Albumin/Globulin Ratio 1.6, TSH 4.720 H, Free T4 1.00, Free T3 pg/dL 1.6 L 04/13/25 16:15: PT Cancelled, INR Cancelled, Urine Color Yellow, Urine Clarity Sl. Cloudy, Urine pH 6.0, Ur Specific [place] 1.020, Urine Protein 100 H, Urine Glucose (UA) Normal, Urine Ketones Negative, Urine Occult Blood 250 H, Urine Nitrite Positive H, Urine Bilirubin Negative, Urine Urobilinogen 4 H, Ur Leukocyte Esterase 500 H, Urine RBC 25-50 SEEN, Urine WBC 25-50 SEEN, Ur Squamous Epith Cells 0-5 SEEN, Ur Renal Epithelial Cell 0-5 SEEN, Urine Bacteria 4+, Fine Granular Casts 0-5 SEEN, Coarse Granular Casts 0-5 SEEN, Urine Mucus 0 SEEN 04/13/25 16:40: PT 17.0 H, INR 1.4 04/13/25 17:15: Troponin T Hi Sens 2 Hr 72 H* Imaging Radiology Impression Chest X-Ray 04/13/25 15:40 IMPRESSION: No acute cardiopulmonary process. 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 #1. Acute Debility, Weakness, Adult FTT secondary to Acute Complicated Urinary Tract Infection: Will admit to PCU, UA upon ED evaluation remarkable, pending UCx, continue judicious IVFs, monitor I/Os, continue IV Rocephin w/ transition as able pending sensitivities and speciation. PT/OT/case management consulted for discharge planning. #2. Indeterminate cardiac enzyme of unclear etiology: EKG in ED with SR without acute evidence of ischemia, CXR w/ no acute cardiopulmonary finding, initial trop 86 with repeat delta 72. Will maintain on a monitored bed to assure no acute myocardial infarction with serial cardiac enzymes and EKGs. FLP in AM. Magnesium level 2.4 per ED. Echocardiogram requested. Will continue aspirin/plavix/statin therapy. #3. Hypothyroidism with abnormal TSH: TSH 4.720 however free T4 1.0 although free T31.6, given current acute presentation likely would benefit from repeat thyroid function studies outpatient in the [facility] acute setting, will continue baseline levothyroxine regimen for now. #4. Obstructive hypertrophic cardiomyopathy: Most recent noted echocardiogram remotely 01/23/2017 with mild concentric LVH, EF 75%, stage I diastolic dysfunction, hyperdynamic LV, mild MVI, trivial TVR, RVSP 35 mmHg. Continued on aspirin, Plavix, statin, metoprolol, losartan home regimen. ECHO ordered given history and #2. #5. History of TIA/CVA with stenosis right vertebral artery: Will continue aspirin, Plavix, hypertensive regimen, statin therapy. #6. Hypertension: Continue home regimen including losartan, metoprolol with hold parameters as needed, PRN hydralazine. #7. Hyperlipidemia: Will continue patient home statin therapy. #8. Chronic normocytic anemia: Admission hemoglobin 11.2, MCV 93.3, baseline hemoglobin primarily 12 range, most recently 02/25/2024 hemoglobin 12.6 at that time, continue to trend CBC. #9. Chronic Kidney Disease Stage III, unclear subtype per GFR trending: Admission BUN/Cr 1.61, GFR 31, baseline renal function 1.1-1.6 primarily, repeat BMP in AM. #10. Anxiety and depression: Noted in history, current list does not appear to be on regimen, encourage continued outpatient follow-up. #11. GERD: Patient with history of Wendy fundoplication, per current list on a regimen, will have as needed Mylanta. #12. Chronic asthma: Currently not on any chronic inhaler regimen, will have as needed albuterol, encourage head of bed and I-S. #13. SUNNY: Does not use PAP therapy. #14. DVT prophylaxis: Lovenox. #15. CODE status: Patient HCPOA and living not in place but she notes her daughters would be her medical decision makers if necessary. He differences in these status, requested Full Code status. Given age and underlying history did discuss that she would have a poor prognosis and she understands this. Advanced Care Planning Face to Face Time: 16 minutes. Charges/Coding Visit Charges Inpatient E&M: 19418 Init Hosp L3 Procedures Hospitalists Procedures: 64474 Advncd Care Plan 30 Min
[2025-04-13 19:35] LABS: Magnesium 1.9 mg/dL (1.5-2.2)
--- NOTE | 2025-04-13 19:55 | ECHOD_ITS ---
Reason For Study Reason For Study: HOCM Procedure This was a 2D Doppler, Color Flow transthoracic echocardiogram. Exam performed portable in patient room. Left Ventricle Normal LV size. Severe eccentric left ventricular hypertrophy. The left ventricular ejection fraction is 75 %. Resting LV gradient 132 mmHg. Stage 1 diastolic dysfunction. No regional wall motion abnormalities noted. Right Ventricle Normal RV size. Normal systolic function. Atria Normal left atrium. Normal right atrium. Mitral Valve There is mild mitral annular calcification. Systolic anterior motion of the mitral valve. Mild-Moderate (1-2+) eccentric mitral valve insufficiency. Tricuspid Valve Normal tricuspid valve. Mild (1+) tricuspid valve insufficiency. Pulmonary artery systolic pressure is 32 mmHg. Aortic Valve Trisinus/trileaflet aortic valve. Pulmonic Valve Normal pulmonic valve. Great Vessels Mildly calcified aortic root. The pulmonary artery is normal size. Inferior vena cava collapse with respiration. Pericardium/Pleural No pericardial effusion. MMode/2D Measurements & Calculations LVIDd: 3.3 cm IVSd: 1.5 cm LVOT diam: 1.9 cm LVIDs: 2.1 cm LVPWd: 0.90 cm LVOT area: 2.9 cm2 RVDd: 3.2 cm FS: 37.6 % Ao root diam: 2.5 cm LAV(MOD-bp): 42.9 ml LVAd ap4: 16.1 cm2 LAV(MOD-bp) Indexed: 28.4 ml/m2 LVLd ap4: 6.6 cm LAV(MOD-sp2): 36.9 ml EDV(MOD-sp4): 32.5 ml LAV(MOD-sp4): 45.4 ml EDV(sp4-el): 33.1 ml LVAs ap4: 6.6 cm2 LVLs ap4: 5.9 cm ESV(MOD-sp4): 6.8 ml ESV(sp4-el): 6.3 ml EF(MOD-sp4): 79.0 % EF(sp4-el): 81.0 % LVAd ap2: 16.4 cm2 SV(MOD-sp4): 25.7 ml SV(MOD-sp2): 22.1 ml LVLd ap2: 6.9 cm SI(MOD-sp4): 17.0 ml/m2 SI(MOD-sp2): 14.6 ml/m2 EDV(MOD-sp2): 32.7 ml EDV(sp2-el): 33.3 ml LVAs ap2: 8.3 cm2 LVLs ap2: 6.1 cm ESV(MOD-sp2): 10.6 ml ESV(sp2-el): 9.6 ml EF(MOD-sp2): 67.6 % SV(sp4-el): 26.9 ml LA dimension(2D): 3.5 cm LA A4 area: 18.8 cm2 RA A4 area: 12.1 cm2 TAPSE: 2.0 cm Time Measurements MV dec time: 0.46 sec Doppler Measurements & Calculations MV E max simba: 128.2 cm/sec Lat Peak E' Simba: 4.9 cm/sec Med Peak E' Simba: 4.4 cm/sec MV A max simba: 154.0 cm/sec E/E' lat: 25.9 E/E' med: 29.4 MV E/A: 0.83 MV V2 max: 164.8 cm/sec MV P1/2t max simba: 139.8 cm/sec Ao V2 max: 223.4 cm/sec MV max P.9 mmHg MV P1/2t: 121.6 msec Ao max P.0 mmHg MV V2 mean: 111.0 cm/sec Ao V2 mean: 159.8 cm/sec MV mean P.3 mmHg MV dec slope: 336.7 cm/sec2 Ao mean P.0 mmHg MV V2 VTI: 40.5 cm MVA(P1/2t): 1.8 cm2 Ao V2 VTI: 45.6 cm PA V2 max: 101.4 cm/sec TR max simba: 267.6 cm/sec TR max P.6 mmHg ECHO/Echo Complete Interpretation Summary Normal LV size. Severe eccentric left ventricular hypertrophy. Resting LV gradient 132 mmHg. Stage 1 diastolic dysfunction. The left ventricular ejection fraction is 75 %.+ Ordering Physician: Lilia Tom Referring Physician: May Avitia M.D. Performed By: Amira Sky RDCS
[2025-04-13] MEDS: 0.9% Normal Saline (1000mL) 1,000 ML 100 ML IV (20:35)
[2025-04-13] MEDS: Ensure Plus High Protein 120 ML LIQUID PO (20:36)
[2025-04-13 21:03] LABS: Troponin T High Sens 4 HR 87 ng/L (<=14)
[2025-04-13] MEDS: Rosuvastatin 20 MG Tablet 40 MG PO (21:29)
[2025-04-14] VITALS (8 sets, daily range): BP systolic 111–138; BP diastolic 57–66; PULSE 68–77; RESP 14–16; TEMP 36.3–36.6; O2SAT 95–100; BMI 20.8
[2025-04-14] MEDS: Levothyroxine 25 MCG TABLET PO (04:11)
[2025-04-14 06:00] LABS: Absolute Lymphocyte Count 2.06 X10^3/uL (0.83-4.51); Basophil# 0.04 X10^3/uL; Basophil% 0.6 % (0-1); Eosinophil# 0.18 X10^3/uL; Eosinophils% 2.5 % (0-5); Hematocrit 28.5 % (37-47); Hemoglobin 9.4 g/dL (12.0-15.0); Lymphocyte # 2.06 X10^3/ul (0.83-4.51); Lymphocyte % 28.9 % (19-41); Mean Corpuscular Volume 94.1 fL (81-99); Mean Platelet Vol. 9.5 fl (6.2-12.0); Monocyte# 0.79 X10^3/uL; Monocyte% 11.1 % (0-10); NRBC Flagged by Analyzer 0 % (0-5); Neutrophil # 4.03 X10^3/uL (2.7-7.7); Neutrophil % 56.3 % (47-70); Platelet Count 136 K/mm3 (150-450); RBC Distribution Width CV 13.1 % (11.6-14.6); Red Blood Count 3.03 M/mm3 (4.2-5.4); White Blood Count 7.1 K/mm3 (4.4-11.0)
[2025-04-14 06:46] LABS: ALB/GLOB Ratio 1.6 RATIO (0.9-2.4); AST(SGOT) 138 U/L (<=31); Alanine Aminotransfer ALT/SGPT 102 U/L (<=34); Albumin, Serum 3.1 g/dL (3.4-4.8); Alkaline Phosphatase 42 U/L (35-104); Anion Gap 8 (5-15); BUN 25 mg/dL (4-19); BUN/Creat Ratio 18.5 RATIO (10-20); Calcium,Total 8.6 mg/dL (7.6-11.0); Carbon Dioxide 17.9 mmol/L (21.0-32.0); Chloride 116 mmol/L (98-108); Cholesterol 84 mg/dL (<=200); Creatinine, Serum 1.36 mg/dL (0.70-1.20); EST Glomerular Filtration Rate 38 (>60); Estimated Creatinine Clearance 23.05 ml/min (50-250); Glucose 91 mg/dL (70-99); High Density Lipoprotein 28 mg/dL; Low Density Lipoprotein Calc. 33 mg/dL; Potassium 4.3 mmol/L (3.3-5.1); Protein, Total 5.1 g/dL (5.9-8.4); Sodium Level 142 mmol/L (133-145); Total Bilirubin 0.47 mg/dL (0.00-1.30); Triglycerides 115 mg/dL; Very Low Density Lipoprotein 23 mg/dL (5-40); cholesterol:hdl ratio screen 3.01
[2025-04-14] MEDS: Aspirin 81 MG TAB.CHEW PO (08:19)
[2025-04-14] MEDS: Menthol/Lanolin/Calamine/Znox 113 GM Tube 1 APPLIC TOPICAL ×3 (10:44→17:40)
[2025-04-14] MEDS: Losartan Potassium 50 MG Tablet PO (10:44)
[2025-04-14] MEDS: Ceftriaxone 1 GM/50 ML BAG IV (10:44)
[2025-04-14] MEDS: Enoxaparin 30 MG/0.3 ML Syringe SC (10:45)
[2025-04-14] MEDS: Ensure Plus High Protein 120 ML LIQUID PO ×3 (10:45→17:44)
[2025-04-14] MEDS: Metoprolol(XL)Succ 100 MG Tablet PO (10:45)
[2025-04-14] MEDS: Clopidogrel Bisulfate 75 MG Tablet PO (10:45)
--- NOTE | 2025-04-14 12:54 | CASEMGMT ---
RN CM Assessment Face to Face with patient for initial transition planning/care coordination assessment. RN CM introduced self and role at [facility], pt voices understanding. Pt is A&Ox4 and is resting comfortably in bed and is calm. Pt's daughters at beside. Care providers, pharmacy, and demographics verified. Admitting dx: Adult FTT, UTI, Elevated Troponin LACE Strata: 2 PCP: [facility] as Dr. Avitia recently retired Specialists: JACEK Preferred Pharmacy: [facility] Insurance: [facility] A/B, AARP Prescription Benefit: yes LNOK: Apolonia Hammer ([facility]), Larissa Sunshine ([facility]) Living Arrangements: Pt lives alone in a single story home with 2 steps to enter ADLs/IADLs: Pt states that she tries to remain as independent as possible. However, pt does receive some assistance through private duty aid 2x/week. Transportation: Pt does not drive. Both of pt's daughter drive her DME: Medical alert system, FWW, Rollator, Cane, Shower chair, Grab bars HHC/SNF: Denies history Pt?s goal: Home Plan: Anticipate Home with skilled HHC at the time of DC. See therapy notes. At this time, the pt adamantly denies SNF needs and states that she plans to return home once medically ready. This RN CM inquired about HHC. Pt is agreeable to this and declines wanting to review a list of local in-network HHC agencies and states that she prefers [facility] HH. TC to Deepali and referral made for SN, PT, and OT. CM to follow. Report given to [employer] CM. Luly Cody RN, CM
--- NOTE | 2025-04-14 13:24 | CASEMGMT ---
Addendum entered by Pauline Pardo 04/14/25 16:40: Discharge has been cancelled. Call placed to [facility] and left re: same. Addendum entered by Pauline Pardo 04/14/25 16:03: Deepali @ [facility] made aware pt is discharging home today. SOC slated for Wed. DC plan updated. Original Note: LING SO NOTE: Informed by LING Burr CM, that [facility] able to accept pt. This was added to pt's discharge plan. Pt made aware & voices appreciation. Harini BARILLAS RN CM
--- NOTE | 2025-04-14 14:12 | CHAPLAIN ---
Type of Pastoral Visit _x__ Initial Visit ___ Follow-up Visit ___ On-call Visit ___ General Patient Visit ___ Spiritual Assessment ___ Family Conference ___ Bereavement ___ Rapid Response ___ Code Blue ___ Other (describe below) Pastoral Care Referral From _x__ Patient ___ Family ___ Nurse ___ Physician ___ Director Database ___ Director Clinical Information Services ___ Other (describe below) Sacrament/Intervention _x__ Active listening ___ Anointing ___ Adventist ___ Bereavement ___ Communion ___ [place] exploration ___ ___ Life review _x__ Prayer ___ Reconciliation ___ Sacrament of Sick _x__ Supportive presence ___ Wedding ___ Other (describe below) Pastoral Comments patient is pleasant; pt is willing to meet the flatbed company driver; pt had been trying to rest; pt has two daughters that can help out; pt is resting but wants to be able to go home by tonight; prayer welcomed
--- NOTE | 2025-04-14 15:30 | CASEMGMT ---
When SW went to patient's room to inquire about advance directives. Patient and family said patient does not have the documents. SW asked patient if she would like to complete the documents. Patient was interested. SW assisted patient in completing both Healthcare Power of Supervisor [place] and Healthcare Living Will. Copies were made and given to patient along with originals. A copy was also placed in patient's chart. Rani GALE
--- NOTE | 2025-04-14 15:36 | DCINST_ITS ---
Discharge Instructions Diet Discharge Diet: No restrictions DC O2, CPAP, BIPAP needs Home O2 Discharge instructions: No Dressing / Incision Discharge Activity: Return to Normal Activity and Use Walker Weight Bearing Status: Full weight bearing Follow Up Care Test Results: Test results from this visit will be discussed in further detail at your follow- up appointment, if applicable. Discharge Plan Admission Admit Date/Time: 04/13/25 18:44 Primary Reason for Your Visit: Acute cystitis, acute debility Attending Provider: Ken Parker Primary Care Provider: May Avitia Consulting Providers: Lilia Tom Discharge Orders/Prescriptions Prescriptions: New cefdinir 300 mg capsule 300 mg PO BID Qty: 14 0RF Rx Instructions: Start on 04/15/2025 Continued clopidogrel 75 MG tablet 75 mg PO DAILY aspirin 81 MG tablet,chewable 81 mg PO DAILY@0800 metoprolol succinate 100 mg tablet extended release 24 hr 100 mg PO DAILY levothyroxine 25 mcg tablet 25 mcg PO DAILY rosuvastatin 40 mg tablet 40 mg PO DAILY losartan 50 mg tablet 50 mg PO DAILY Qty: 90 3RF Referrals / Follow Up: May Avitia MD [Primary Care Provider] - Within 2 Weeks Disposition Disposition (needs filled in before D/C Order can be placed): Home Health Servic e
--- NOTE | 2025-04-14 15:46 | PCM.DC.SUM ---
Providers Date of Admission: 04/13/25 Date of Discharge: 04/15/25 Primary Care Physician: Dr. May Avitia MD Reason For Visit: ADULT FTT, UTI, ELEVATED TROP Diagnosis Discharge Diagnosis (1) UTI (urinary tract infection): Status: Acute Code(s): N39.0 - Urinary tract infection, site not specified Plan 1. Acute cystitis from E. coli #2 acute weakness secondary to #1 #3 elevated troponin-etiology unclear #4 hypothyroidism #5 essential hypertension #6 chronic kidney disease stage III b Medications at Discharge Home Medications aspirin 81 mg chewable tablet 81 mg PO DAILY@0800 health maintenance 07/13/17 clopidogrel 75 mg tablet 75 mg PO DAILY blood thinner 07/13/17 losartan 50 mg tablet 50 mg PO DAILY blood pressure #90 tabs 10/27/21 levothyroxine 25 mcg tablet 25 mcg PO DAILY thyroid 04/13/25 metoprolol succinate 100 mg tablet,extended release 24 hr 100 mg PO DAILY blood pressure 04/13/25 rosuvastatin 40 mg tablet 40 mg PO DAILY cholesterol 04/13/25 cefdinir 300 mg capsule 300 mg PO BID #14 caps 04/14/25 Hospital Course Operations None Procedures None Summary of Care Provided Minutes Spent on Discharge: 31 Hospital Course: This 89-year-old white female was seen in the emergency room at [facility] with complaints of generalized weakness x 1 week. Patient admitted that she was not eating or drinking well. Labs were obtained and were remarkable for hemoglobin of 11.2, creatinine of 1.61, BUN of 27, AST of 170, ALT of 127, and glucose of 165. Troponin was elevated at 86, urinalysis was positive for 25-50 WBCs, 25-50 RBCs, and +4 bacteria. Patient had positive urine nitrite. Second troponin was elevated at 72. Patient was felt to have a UTI and she was admitted to PCU, given IV fluids and IV antibiotics. Patient was seen in consultation by PT and OT, initially patient did well, family requested that she stay a second night in the hospital however and I accommodated this wish. On 04/15/2025, patient was seen and examined: On examination she appeared in good health and spirits, she does not appear to be in any distress. Vital signs as documented. Skin warm and dry and without overt rashes. Neck without JVD, thyroid appears normal, trachea is midline, neck is supple. Lungs clear, normal air movement was noted. Heart exam notable for regular rhythm, normal sounds and absence of murmurs, rubs or gallops. Abdomen unremarkable and without evidence of organomegaly, masses, or abdominal aortic enlargement, bowel sounds are present in all 4 quadrants, no abdominal tenderness was noted. Extremities nonedematous, no cyanosis was noted, no clubbing was noted. Neuro: Cranial nerves II through XII are grossly intact, no focal motor deficits were noted, sensation to light touch and pinprick is intact, motor exam 5/5 throughout. Psych: Patient is alert and oriented x3, she does not appear anxious or depressed, she does not appear agitated. Patient appears stable for discharge home on 04/15/2025 Weight / BMI Weight Weight: 53.2 kg Body Mass Index (BMI) 21.4 ABG / Lab / Microbiology Data 04/14/25 05:39 04/14/25 05:39 Laboratory: Laboratory Results - last 24 hr 04/13/25 15:15: Sodium 142, Potassium 3.9, Chloride 110 H, Carbon Dioxide 20.7 L, Anion Gap 12, BUN 27 H, Creatinine 1.61 H, Estim Creat Clear Calc 19.47 L, Est GFR (MDRD) Non-Af 31 L, BUN/Creatinine Ratio 16.6, Glucose 165 H, Calcium 9.5, Magnesium 2.4 H, Total Bilirubin 0.86, AST 170 H, ALT 127 H, Alkaline Phosphatase 53, Troponin T High Sens 86 H*, Total Protein 6.2, Albumin 3.8, Globulin 2.4, Albumin/Globulin Ratio 1.6, TSH 4.720 H, Free T4 1.00, Free T3 pg/dL 1.6 L 04/13/25 16:15: PT Cancelled, INR Cancelled, Urine Color Yellow, Urine Clarity Sl. Cloudy, Urine pH 6.0, Ur Specific [place] 1.020, Urine Protein 100 H, Urine Glucose (UA) Normal, Urine Ketones Negative, Urine Occult Blood 250 H, Urine Nitrite Positive H, Urine Bilirubin Negative, Urine Urobilinogen 4 H, Ur Leukocyte Esterase 500 H, Urine RBC 25-50 SEEN, Urine WBC 25-50 SEEN, Ur Squamous Epith Cells 0-5 SEEN, Ur Renal Epithelial Cell 0-5 SEEN, Urine Bacteria 4+, Fine Granular Casts 0-5 SEEN, Coarse Granular Casts 0-5 SEEN, Urine Mucus 0 SEEN 04/13/25 16:40: PT 17.0 H, INR 1.4 04/13/25 17:15: Magnesium 1.9, Troponin T Hi Sens 2 Hr 72 H* 04/13/25 20:23: Troponin T Hi Sens 4Hr 87 H* 04/14/25 05:39: WBC 7.1, RBC 3.03 L, Hgb 9.4 L, Hct 28.5 L, MCV 94.1, MCH 31.0, MCHC 33.0, RDW Std Deviation 45.0 H, RDW Coeff of Krystyna 13.1, Plt Count 136 L, MPV 9.5, Immature Gran % (Auto) 0.600, Neut % (Auto) 56.3, Lymph % (Auto) 28.9, [place] % (Auto) 11.1 H, Eos % (Auto) 2.5, Baso % (Auto) 0.6, Absolute Neuts (auto) 4.0, Absolute Lymphs (auto) 2.06, Nucleated RBC % 0, Sodium 142, Potassium 4.3, Chloride 116 H, Carbon Dioxide 17.9 L, Anion Gap 8, BUN 25 H, Creatinine 1.36 H, Estim Creat Clear Calc 23.05 L, Est GFR (MDRD) Non-Af 38 L, BUN/Creatinine Ratio 18.5, Glucose 91, Calcium 8.6, Total Bilirubin 0.47, AST 138 H, ALT 102 H, Alkaline Phosphatase 42, Total Protein 5.1 L, Albumin 3.1 L, Globulin 2.0 L, Albumin/Globulin Ratio 1.6, Triglycerides 115, Cholesterol 84, LDL Cholesterol, Calc 33, VLDL Cholesterol 23, HDL Cholesterol 28 L, Cholesterol/HDL Ratio 3.01 Microbiology: Microbiology 04/13/25 16:15 Urine, Catheterized Urine Culture - Final Escherichia coli Radiography Diagnostic Testing: Radiology Impression Echocardiogram 04/13/25 19:55 Interpretation Summary Normal LV size. Severe eccentric left ventricular hypertrophy. Resting LV gradient 132 mmHg. Stage 1 diastolic dysfunction. The left ventricular ejection fraction is 75 %.+ Ordering Physician: Lilia Tom Referring Physician: May Avitia M.D. Performed By: Amira Sky RDCS D/C Instructions Discharge Diet: No restrictions Weight Bearing Status: Full weight bearing DC O2, CPAP, BIPAP Needs Home O2 Discharge instructions: No Meaningful Use Info Meaningful Use Meaningful Use Diagnoses (Choose all that apply): None applicable Ischemic Stroke Statin Dosing Therapy Reference: STATIN DOSE THERAPY REFERENCE: * Patients > 75 years receive moderate or high dose statin therapy. * Patients 75 years or YOUNGER should receive HIGH intensity statin dose unless contraindicated. You will be required to document reason for non-treatment if statin daily dose does not meet guidelines. HIGH DOSE STATIN THERAPY DAILY Atorvastatin > than or = to 40 mg Rosuvastatin > than or = to 20 mg Amlodipine + Atorvastatin > than or = to 2.5/40 mg Ezetimibe + Simvastatin 10/80 mg Simvastatin 80mg Discharge Plan Admission Admit Date/Time: 04/13/25 18:44 Primary Reason for Your Visit: Acute cystitis, acute debility Attending Provider: Ken Parker Primary Care Provider: May Avitia Consulting Providers: Lilia Tom Discharge Orders/Prescriptions Prescriptions: New cefdinir 300 mg capsule 300 mg PO BID Qty: 14 0RF Rx Instructions: Start on 04/15/2025 Continued clopidogrel 75 MG tablet 75 mg PO DAILY aspirin 81 MG tablet,chewable 81 mg PO DAILY@0800 metoprolol succinate 100 mg tablet extended release 24 hr 100 mg PO DAILY levothyroxine 25 mcg tablet 25 mcg PO DAILY rosuvastatin 40 mg tablet 40 mg PO DAILY losartan 50 mg tablet 50 mg PO DAILY Qty: 90 3RF Referrals / Follow Up: May Avitia MD [Primary Care Provider] - Within 2 Weeks Disposition Disposition (needs filled in before D/C Order can be placed): Home Health Service Charges/Coding Visit Charges Inpatient E&M: 48776 Disch Hosp >30min
--- NOTE | 2025-04-14 16:38 | PHA.DC.MC.R ---
Pharmacy [facility] Pharmacy Service has performed discharge medication reconciliation and counseling for this patient. 1. CEFDINIR 300MG PO BID X 7 DAYS The patient's discharge medication list was reviewed for discrepancies and discrepancies were resolved. The patient was counseled on the following discharge medications and changes in medications for homegoing were reviewed. The Reason for Use, instructions for use, and potential side effects were reviewed for all new medications. The patient's questions regarding all of their medications were answered. The patient was able to verbally demonstrate an understanding of their discharge medications. Medications at Discharge Home Medications aspirin 81 mg chewable tablet 81 mg PO DAILY@0800 health maintenance 07/13/17 clopidogrel 75 mg tablet 75 mg PO DAILY blood thinner 07/13/17 losartan 50 mg tablet 50 mg PO DAILY blood pressure #90 tabs 10/27/21 levothyroxine 25 mcg tablet 25 mcg PO DAILY thyroid 04/13/25 metoprolol succinate 100 mg tablet,extended release 24 hr 100 mg PO DAILY blood pressure 04/13/25 rosuvastatin 40 mg tablet 40 mg PO DAILY cholesterol 04/13/25 cefdinir 300 mg capsule 300 mg PO BID #14 caps 04/14/25
--- NOTE | 2025-04-14 17:25 | PCM.PN.HOSP ---
Reason for Visit Reason for Visit: Diagnoses Urinary tract infection, site not specified (04/13/25) Subjective Subjective Patient was seen and examined today, she is able to walk 60 feet with minimal assistance, patient wanted to go home today and I had discharge paperwork ready but the daughters feel that she needs to stay in the hospital 1 more night. Objective Data Objective Data Vital Signs: Vital Signs Temp Pulse Resp BP Pulse Ox O2 Del Method 97.9 F 73 16 133/59 H 96 Room Air 04/14/25 14:47 04/14/25 14:47 04/14/25 14:47 04/14/25 14:47 04/14/25 14:47 04/14/25 14:47 Oxygen Delivery Method Room Air Weight: 51.7 kg Body Mass Index (BMI) 20.8 Intake & Output: Intake and Output for Last 24 Hours 04/12/25 04/13/25 04/14/25 23:59 23:59 23:59 Intake Total 1050 / 1050 1170 / 1170 Output Total 0 / 0 Balance 1050 / 1050 1170 / 1170 Lab / Micro Data 04/14/25 05:39 04/14/25 05:39 Labs: Laboratory Results - last 24 hr 04/13/25 17:15: Magnesium 1.9, Troponin T Hi Sens 2 Hr 72 H* 04/13/25 20:23: Troponin T Hi Sens 4Hr 87 H* 04/14/25 05:39: WBC 7.1, RBC 3.03 L, Hgb 9.4 L, Hct 28.5 L, MCV 94.1, MCH 31.0, MCHC 33.0, RDW Std Deviation 45.0 H, RDW Coeff of Krystyna 13.1, Plt Count 136 L, MPV 9.5, Immature Gran % (Auto) 0.600, Neut % (Auto) 56.3, Lymph % (Auto) 28.9, [place] % (Auto) 11.1 H, Eos % (Auto) 2.5, Baso % (Auto) 0.6, Absolute Neuts (auto) 4.0, Absolute Lymphs (auto) 2.06, Nucleated RBC % 0, Sodium 142, Potassium 4.3, Chloride 116 H, Carbon Dioxide 17.9 L, Anion Gap 8, BUN 25 H, Creatinine 1.36 H, Estim Creat Clear Calc 23.05 L, Est GFR (MDRD) Non-Af 38 L, BUN/Creatinine Ratio 18.5, Glucose 91, Calcium 8.6, Total Bilirubin 0.47, AST 138 H, ALT 102 H, Alkaline Phosphatase 42, Total Protein 5.1 L, Albumin 3.1 L, Globulin 2.0 L, Albumin/Globulin Ratio 1.6, Triglycerides 115, Cholesterol 84, LDL Cholesterol, Calc 33, VLDL Cholesterol 23, HDL Cholesterol 28 L, Cholesterol/HDL Ratio 3.01 Micro: Microbiology 04/13/25 16:15 Urine, Catheterized Urine Culture - Preliminary GNR lactose director of undergraduate admissions Radiography Diagnostic Testing: Radiology Impression Echocardiogram 04/13/25 19:55 Interpretation Summary Normal LV size. Severe eccentric left ventricular hypertrophy. Resting LV gradient 132 mmHg. Stage 1 diastolic dysfunction. The left ventricular ejection fraction is 75 %.+ Ordering Physician: Lilia Tom Referring Physician: May Avitia M.D. Performed By: Amira Sky RDCS Physical Exam Const alert, oriented x3, no apparent distress and healthy appearing Constitutional Narrative: Patient appears her stated age General Appearance: cooperative, well kempt and well developed Orientation / Consciousness: awake, oriented to person, oriented to place and oriented to time HEENT normocephalic, head/scalp atraumatic and moist oral mucous membranes Eyes PERRL, EOMs intact bilaterally and conjunctivae normal Neck supple, no JVD, thyroid normal and no carotid bruits General: trachea midline Resp normal respiratory effort, no retractions, no use of accessory muscles and clear to auscultation bilaterally Auscultation: Negative for rales, rhonchi or wheezes Cardio regular rate, regular rhythm, S1 normal heart sound, S2 normal heart sound, no murmurs, no rub and no gallops GI normal to inspection, nondistended, normoactive bowel sounds, soft to palpation, non-tender and non-distended Extremity no clubbing, cyanosis or edema Skin no rashes or lesions noted General Skin Exam: no breakdown Neuro oriented x3, CN's II-XII intact bilaterally, moves all extremities, no focal motor deficits and no sensory deficits noted Sensorium / Orientation: awake and alert Speech: speech normal Psych affect normal Assessment & Plan Assessment/Plan (1) UTI (urinary tract infection): PLAN: Plan 1. Acute cystitis-patient will remain on IV Rocephin for now, cultures are pending #2 acute debility-secondary to dehydration and acute cystitis, PT and OT will continue to see the patient #3 dehydration-patient's creatinine is improved today, I do not feel she needs any more fluids administered. #4 essential hypertension-patient will remain on her present medication Total clinical time spent by myself addressing the patient's medical issues, reviewing all of her data, and collaborating with patient's care team: 35-minute Charges/Coding Visit Charges Inpatient E&M: 08000 Subs Hosp L2
[2025-04-14] MEDS: Rosuvastatin 20 MG Tablet 40 MG PO (21:31)
[2025-04-15 03:00] VITALS: BP 131/66; PULSE 65; RESP 16; TEMP 36.1; O2SAT 97
[2025-04-15 03:43] VITALS: BMI 21.4
[2025-04-15] MEDS: Levothyroxine 25 MCG TABLET PO (06:02)
[2025-04-15 08:00] VITALS: O2SAT 99
[2025-04-15] MEDS: Aspirin 81 MG TAB.CHEW PO (08:30)
[2025-04-15] MEDS: Ensure Plus High Protein 120 ML LIQUID PO (08:30)
[2025-04-15 09:00] VITALS: BP 122/58; PULSE 77; RESP 16; TEMP 36.9; O2SAT 96
[2025-04-15 09:10] VITALS: BP 122/58; PULSE 77
[2025-04-15] MEDS: Metoprolol(XL)Succ 100 MG Tablet PO (09:10)
[2025-04-15] MEDS: Clopidogrel Bisulfate 75 MG Tablet PO (09:10)
[2025-04-15] MEDS: Ceftriaxone 1 GM/50 ML BAG IV (09:10)
[2025-04-15] MEDS: Losartan Potassium 50 MG Tablet PO (09:11)
[2025-04-15] MEDS: Menthol/Lanolin/Calamine/Znox 113 GM Tube 1 APPLIC TOPICAL (09:11)
[2025-04-15] MEDS: 0.9% Saline Lock 10 ML Syringe IV (09:12)
--- NOTE | 2025-04-15 15:10 | CASEMGMT ---
Patient has order for discharge. RN CM [facility], start of care planned for tomorrow. RN CM in to discuss needs at discharge, daughter at bedside. RN CM updated patient and daughter regarding [facility] start of care. Patient and daughter denied further needs or concerns. Patient and daughter had no further questions.
[2025-04-15 15:27] VITALS: BP 121/55; PULSE 65; RESP 16; TEMP 36.6; O2SAT 96
== END 2025-04-15 15:34 | disposition home health service (06) | DRG 690 ==
LOC: ED 18:46 → PCU 19:03
PROVIDERS: Physician Assistant; Admitting Provider Family Medicine; Emergency Provider Surgery; PCP Family Medicine; Visit Provider Internal Medicine
DX: N39.0 Urinary tract infection, site not specified (principal); I42.1 Obstructive hypertrophic cardiomyopathy; I13.0 Hypertensive heart and chronic kidney disease with heart failure and stage 1 through stage 4 chronic kidney disease, or unspecified chronic kidney disease; I50.30 Unspecified diastolic (congestive) heart failure; I65.01 Occlusion and stenosis of right vertebral artery; D63.1 Anemia in chronic kidney disease; E86.0 Dehydration; N18.32 Chronic kidney disease, stage 3b; J45.909 Unspecified asthma, uncomplicated; F32.A Depression, unspecified; E02 Subclinical iodine-deficiency hypothyroidism; I95.9 Hypotension, unspecified; E78.5 Hyperlipidemia, unspecified; G47.33 Obstructive sleep apnea (adult) (pediatric); K21.9 Gastro-esophageal reflux disease without esophagitis; E87.8 Other disorders of electrolyte and fluid balance, not elsewhere classified; F41.9 Anxiety disorder, unspecified; Z86.73 Personal history of transient ischemic attack (TIA), and cerebral infarction without residual deficits; Z79.890 Hormone replacement therapy; R79.89 Other specified abnormal findings of blood chemistry; Z87.891 Personal history of nicotine dependence; Z82.49 Family history of ischemic heart disease and other diseases of the circulatory system; Z79.82 Long term (current) use of aspirin; R74.01 Elevation of levels of liver transaminase levels; Z79.02 Long term (current) use of antithrombotics/antiplatelets; R53.81 Other malaise
CPT/HCPCS: 36415; 71046; 80053; 80061; 81001; 83735; 84439; 84443; 84481; 84484; 85025; 85610; 87077; 87086; 87088; 87186; 93005; 93306; 94668; 97162; 97166; 97802; 99285; Q9957; A4216

== ENCOUNTER → 2025-05-28 | Outpatient (CLI) | payer MEDICARE, OTHER, SELFPAY | END | disposition home or self-care (01) | LOC: MTLAB 13:44 | PROVIDERS: PCP Family Medicine | DX: E03.9 Hypothyroidism, unspecified (principal) | CPT/HCPCS: 36415; 84443 ==

== ENCOUNTER → 2025-06-12 | Outpatient (CLI) | payer MEDICARE, OTHER, SELFPAY ==
--- NOTE | 2025-06-12 13:55 | CT_ITS ---
PROCEDURE: ABDOMEN/PELVIS WITHOUT CONT 06/12/2025 REASON FOR EXAM: GROSS HEMATURIA TECHNIQUE: ABDOMEN/PELVIS WITHOUT CONT Noncontrast technique limits evaluation of the abdominal and pelvic viscera. Coronal and Sagittal reconstruction series were provided. One or more dose reduction techniques were used (e.g., Automated exposure control, adjustment of the mA and/or kV according to patient size, use of iterative reconstruction technique). RADIATION DOSE SUMMARY: CTDlvol: 5.93 mGy DLP: 243.75 mGycm COMPARISON: None FINDINGS: Lung bases: Lung bases are clear. Coronary artery calcification. Liver: Normal size. No obvious mass. Gallbladder: Surgically absent. Spleen: Multiple calcified splenic granulomas. Pancreas: Diffuse fatty atrophy. Adrenals: Unremarkable Kidneys: Moderate degree of right hydronephrosis. Findings suggestive of right ureteropelvic junction obstruction. No calcified renal calculus is seen. Bladder: Unremarkable Reproductive Organs: Fibroid uterus. Bowel: Colonic diverticulosis without diverticulitis. Appendix: Prior appendectomy. Lymph nodes: Unremarkable. Vasculature: Mild diffuse atherosclerotic calcifications are noted. Peritoneum / Retroperitoneum: Unremarkable Bones: Degenerative changes of the spine. Levoconvex scoliosis. CT/Abdomen/Pelvis without Cont IMPRESSION: Right hydronephrosis. Possible right ureteropelvic junction obstruction. No r enal calcification or ureteral calcification is seen. Reading Location: [place] [id number]
--- NOTE | 2025-06-12 13:55 | CT_ITS ---
PROCEDURE: ABDOMEN/PELVIS WITHOUT CONT 06/12/2025 REASON FOR EXAM: GROSS HEMATURIA TECHNIQUE: ABDOMEN/PELVIS WITHOUT CONT Noncontrast technique limits evaluation of the abdominal and pelvic viscera. Coronal and Sagittal reconstruction series were provided. One or more dose reduction techniques were used (e.g., Automated exposure control, adjustment of the mA and/or kV according to patient size, use of iterative reconstruction technique). RADIATION DOSE SUMMARY: CTDlvol: 5.93 mGy DLP: 243.75 mGycm COMPARISON: None FINDINGS: Lung bases: Lung bases are clear. Coronary artery calcification. Liver: Normal size. No obvious mass. Gallbladder: Surgically absent. Spleen: Multiple calcified splenic granulomas. Pancreas: Diffuse fatty atrophy. Adrenals: Unremarkable Kidneys: Moderate degree of right hydronephrosis. Findings suggestive of right ureteropelvic junction obstruction. No calcified renal calculus is seen. Bladder: Unremarkable Reproductive Organs: Fibroid uterus. Bowel: Colonic diverticulosis without diverticulitis. Appendix: Prior appendectomy. Lymph nodes: Unremarkable. Vasculature: Mild diffuse atherosclerotic calcifications are noted. Peritoneum / Retroperitoneum: Unremarkable Bones: Degenerative changes of the spine. Levoconvex scoliosis. CT/Abdomen/Pelvis without Cont IMPRESSION: Right hydronephrosis. Possible right ureteropelvic junction obstruction. No r enal calcification or ureteral calcification is seen. Reading Location: [place] [id number]
== END | disposition home or self-care (01) ==
LOC: CT 13:47
PROVIDERS: PCP Family Medicine; Referring Provider Urology; Visit Provider Urology
DX: R31.0 Gross hematuria (principal)
CPT/HCPCS: 74176

== ENCOUNTER 2025-06-13 14:27 | Day surgery (SDC) | payer MEDICARE, OTHER, SELFPAY ==
--- NOTE | 2025-06-12 16:35 | PAT.ANE_ITS ---
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 When Was Last Pacemaker Check QUESTION #4 FULL TEXT: You/Your Family Experience fever (hyperthermia) with Anesthesia Last Oral Intake Last Oral intake: Last Oral Intake NPO since Meds taken in AM with sips of water? 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 Female Yes 06/12/25 16:21 HX of Motion Sickness No 06/12/25 16:21 HX of N/V After Surgery No 06/12/25 16:21 Non-Smoker Yes 06/12/25 16:21 Duration of Surgery greater No 06/12/25 16:21 than 60 minutes Number of Risk Factors 2 06/12/25 16:21 PONV Score Moderate Risk 06/12/25 16:21 Height & Weight Height & Weight: Anesthesia: Height & Weight Height 5 ft 2 in 04/14/25 10:17 Respiratory Assessment Respiratory Assessment - dry cans operator: Respiratory Tract Infection Hx - dry cans operator Hx Respiratory Tract Infection No 06/12/25 16:21 STOP Sleep Apnea STOP Sleep Apnea - dry cans operator: STOP Sleep Apnea - dry cans operator Hx Hypertension Yes: CONTROLLED WITH MEDS 06/12/25 16:21 Hx Sleep Apnea No 06/12/25 16:21 CPAP No 04/13/25 20:06 BIPAP No 04/13/25 20:06 Do you snore loudly (louder No 06/12/25 16:21 than talking or can be heard Do you often feel tired/ Yes 06/12/25 16:21 fatigued/ sleepy during daytime? Has anyone observed you stop No 06/12/25 16:21 breathing during sleep? STOP Results Positive 06/12/25 16:21 QUESTION #5 FULL TEXT : Do you snore loudly (louder than talking or can be heard through closed doors)? 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 Specify any problems Hx of Preganancy in last 3 No 06/12/25 16:21 Months Nurse Filling Out Transfusion DSCHRIBER 06/12/25 16:21 & Questions: Date: 06/12/25 06/12/25 16:21 Time: 16:23 06/12/25 16:21 Patient unable to answer at this time (ie. confused, unrespo /Reproduction History /Reproductive History - dry cans operator: /Reproductive Hx- dry cans operator Hx Now No 06/12/25 16:21 Gestational Age (in weeks): EDC: Hx Hx Para Hx Section SAB No 06/12/25 16:21 PFSH Medical History (Updated 06/12/25 @ 16:31 by Gogo Baker) Wears glasses Open wound Thyroid disease Walker as ambulation aid Ambulates with cane Arthritis DVT (deep venous thrombosis) High cholesterol History of ulceration Non-smoker Shortness of breath on exertion History of echocardiogram Cardiology follow-up encounter UTI (urinary tract infection) Generalized weakness Essential (primary) hypertension Stenosis of right vertebral artery Obstructive hypertrophic cardiomyopathy Syncope and collapse History of CVA (cerebrovascular accident) (07/2017) Vertigo Depression History of TIA (transient ischemic attack) Meniere disease History of asthma Home Medications ?Medication ?Instructions ?Recorded ?Last Taken ?Type aspirin 81 mg chewable tablet 81 mg PO DAILY@0800 heal th 07/13/17 06/12/25 History maintenance clopidogrel 75 mg tablet 75 mg PO DAILY blood thinner 07/13/17 06/12/25 History losartan 50 mg tablet 50 mg PO DAILY blood pressur e #90 10/27/21 04/12/25 Rx tabs levothyroxine 25 mcg tablet 25 mcg PO DAILY thyroid 04/12/25 History metoprolol succinate 100 mg 100 mg PO DAILY blood pres sure 04/13/25 04/12/25 History tablet,extended release 24 hr rosuvastatin 40 mg tablet 40 mg PO DAILY cholesterol 0 04/13/25 04/12/25 History Allergy/AdvReac Type Severity Reaction Status Date / Time hornet venom Allergy Anaphylaxis Verified 06/12/25 16:19 insect venom (yellow jacket) Allergy Anaphylaxis Verified 06/12/25 16:19 Penicillins Allergy Rash Verified 06/12/25 16:19 venom-wasp (Wasp Venom) Allergy Anaphylaxis Verified 06/12/25 16:19 [id number] Reductase AdvReac muscle Verified 06/12/25 16:19 Inhibitor (Umooipi-Vin-Uyr weakness Reductase Inhibitor) tramadol AdvReac Other Verified 06/12/25 16:19 Family History Mother , age 55 sudden cardiac CAD (coronary artery disease) Sudden cardiac Father , age 77 Lung cancer Sister carotid artery surgery CAD (coronary artery disease) Surgical History (Updated 06/12/25 @ 16:31 by Gogo Baker) Hx of left cataract extraction Hx of right cataract extraction History of esophagogastroduodenoscopy (EGD) Hx of colonoscopy History of carpal tunnel surgery of right wrist Hx of total knee arthroplasty Hx of total knee replacement History of appendectomy History of Wendy fundoplication Social History (Updated 04/13/25 @ 19:[address] Lilia Tom MD) household members: spouse Smoking Status: Former smoker alcohol intake: current alcohol intake frequency: 0-2 drinks per day Alcohol type: wine substance use type: does not use caffeine: Yes Type: coffee Number of servings: 1 what type of physical activity do you participate in: none seatbelt use: always do you feel safe at home: Yes Audit: Pertinent Findings Pertinent Findings EKG Perinent findings: 04/13/2025. Sinus rhythm with first-degree AV block. Echo (EF%) pertinent findings: Echo 04/14/2025 EF 75%. Normal LV size. Severe eccentric left ventricular hypertrophy. Stage I diastolic dysfunction. No re gional wall motion abnormalities noted. Consult pertinent findings: Cardiology note 02/10/2023. The patient has a history of obstructive hypertrophic cardiomyopathy. She appears stable at this time, and denies any recent symptoms or events. Follow-up in 1 year Recommendation Anesthesia Recommendation Anesthesia recommendation: OPTIMIZED for anesthesia
[2025-06-13] VITALS (10 sets, daily range): BP systolic 96–175; BP diastolic 44–84; PULSE 62–76; RESP 14–16; TEMP 2.2–36.8; O2SAT 96–98; BMI 21.9
--- NOTE | 2025-06-13 07:06 | PCM.HP.STD ---
HPI - General General Date of Service: 06/13/25 Chief Complaint: Hemorrhaging HPI Narrative ALLIE MARIE, is a 89 F who presents with ongoing hemorrhaging from the right kidney CAT scan was done yesterday no clear source but there is blood in the collecting system in the right side plan to do cystoscopy right retrograde pyelogram right ureteroscopy possible biopsy fulguration and possible laser [facility] Medical History (Updated 06/12/25 @ 16:31 by Gogo Baker) Wears glasses Open wound Thyroid disease Walker as ambulation aid Ambulates with cane Arthritis DVT (deep venous thrombosis) High cholesterol History of ulceration Non-smoker Shortness of breath on exertion History of echocardiogram Cardiology follow-up encounter UTI (urinary tract infection) Generalized weakness Essential (primary) hypertension Stenosis of right vertebral artery Obstructive hypertrophic cardiomyopathy Syncope and collapse History of CVA (cerebrovascular accident) (07/2017) Vertigo Depression History of TIA (transient ischemic attack) Meniere disease History of asthma Home Medications ?Medication ?Instructions ?Recorded ?Last Taken ?Type aspirin 81 mg chewable tablet 81 mg PO DAILY@0800 health 07/13/17 06/12/25 History maintenance clopidogrel 75 mg tablet 75 mg PO DAILY blood thinner 07/13/17 06/12/25 History losartan 50 mg tablet 50 mg PO DAILY blood pressure #90 10/27/21 04/12/25 Rx tabs levothyroxine 25 mcg tablet 25 mcg PO DAILY thyroid 04/13/25 04/12/25 History metoprolol succinate 100 mg 100 mg PO DAILY blood pressure 04/13/25 04/12/25 History tablet,extended release 24 hr rosuvastatin 40 mg tablet 40 mg PO DAILY cholesterol 04/13/25 04/12/25 History Allergy/AdvReac Type Severity Reaction Status Date / Time hornet venom Allergy Anaphylaxis Verified 06/12/25 16:19 insect venom (yellow jacket) Allergy Anaphylaxis Verified 06/12/25 16:19 Penicillins Allergy Rash Verified 06/12/25 16:19 venom-wasp (Wasp Venom) Allergy Anaphylaxis Verified 06/12/25 16:19 Pwgpbhz-ABQ-PjE Reductase AdvReac muscle Verified 06/12/25 16:19 Inhibitor (Lzadjyi-Ivn-Kyj weakness Reductase Inhibitor) tramadol AdvReac Other Verified 06/12/25 16:19 Family History Mother , age 55 sudden cardiac CAD (coronary artery disease) Sudden cardiac Father , age 77 Lung cancer Sister carotid artery surgery CAD (coronary artery disease) Surgical History (Updated 06/12/25 @ 16:31 by Gogo Baker) Hx of left cataract extraction Hx of right cataract extraction History of esophagogastroduodenoscopy (EGD) Hx of colonoscopy History of carpal tunnel surgery of right wrist Hx of total knee arthroplasty Hx of total knee replacement History of appendectomy History of Wendy fundoplication Social History (Updated 04/13/25 @ 19:[address] Lilia Tom MD) household members: spouse Smoking Status: Former smoker alcohol intake: current alcohol intake frequency: 0-2 drinks per day Alcohol type: wine substance use type: does not use caffeine: Yes Type: coffee Number of servings: 1 what type of physical activity do you participate in: none seatbelt use: always do you feel safe at home: Yes
[2025-06-13] MEDS: Lactated Ringers 1,000 ML 15 ML IV (15:18)
--- NOTE | 2025-06-13 16:13 | SUR.PREOP ---
Dr. Leslie aware that patient took plavix and aspirin yesterday, 06/12/25
--- NOTE | 2025-06-13 16:20 | PCM.PRE.AN2 ---
ASA Classification* ASA Classification ASA Classification: 3 Assessment & Plan Anesthesia* Anesthesia Assessment Anesthesia Assessment: Discussed sedation and/or anesthesia options, risks, benefits, and alternatives with patient/parents/legal guardian/POA. Questions invited. The patient/parents/legal guardian/POA seems to understand and agrees to proceed with anesthesia plan. Reviewed the physical assessment, medical history, allergy history and patient home medications list prior to surgery/procedure/anesthetic and documented any changes. Performed airway and anesthesia risk assessments. Anesthesia Type Anesthesia Type: General History Source History Obtained from:: Patient and Chart Anesthesia Focused Assessment* Temperature: 96.7 F Pulse Rate: 62 Blood Pressure: 138/60 Respiratory Rate: 14 Pulse Ox: 97 Oxygen Delivery Method: Room Air Airway Assessment Mouth opens: >3 cm Mallampati Score: III Teeth Condition: Caps/Crowns (Patient has about 4 crowns. They are tight.) Neck Range of motion (ROM): Full ROM Labs Anesthesia Preop lab: CBC WBC 7.1 K/mm3 (4.4-11.0) 04/14/25 05:39 04/14/25 RBC 3.03 M/mm3 (4.2-5.4) L 04/14/25 05:39 04/14/25 Hgb 9.4 g/dL (12.0-15.0) L 04/14/25 05:39 04/14/25 Hct 28.5 % (37-47) L 04/14/25 05:39 04/14/25 Plt Count 136 K/mm3 (150-450) L 04/14/25 05:39 04/14/25 CHEMISTRY Potassium 4.3 mmol/L (3.3-5.1) 04/14/25 05:39 04/14/25 Sodium 142 mmol/L (133-145) 04/14/25 05:39 04/14/25 Magnesium 1.9 mg/dL (1.5-2.2) 04/13/25 17:15 04/13/25 BUN 25 mg/dL (4-19) H 04/14/25 05:39 04/14/25 Creatinine 1.36 mg/dL (0.70-1.20) H 04/14/25 05:39 04/14/25 Glucose 91 mg/dL (70-99) 04/14/25 05:39 04/14/25 POC Glucose 143 mg/dL (70-110) H 04/21/19 23:02 04/21/19 TSH 6.240 uIU/mL (0.300-4.200) H 05/28/25 13:48 05/28/25 COAG PT 17.0 SECONDS (11.7-14.9) H 04/13/25 16:40 04/13/25 Pre-Assessment Diagnosis/Proposed Procedure Planned Operative Procedure(s): RIGHT URETEROSCOPY BIOPSY STENT, laser, cystoscopy with right retrograde pyelograms Anesthesia History 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 When Was Last Pacemaker Check QUESTION #4 FULL TEXT: You/Your Family Experience fever (hyperthermia) with Anesthesia Last Oral Intake Last Oral intake: Last Oral Intake NPO since 21:00 06/13/25 15:06 Meds taken in AM with sips of No 06/13/25 15:06 water? Meds patient instructed to take am of surgery PONV PONV - criminal justice department chair: PONV - criminal justice department chair Female Yes 06/12/25 16:21 HX of Motion Sickness No 06/12/25 16:21 HX of N/V After Surgery No 06/12/25 16:21 Non-Smoker Yes 06/12/25 16:21 Duration of Surgery greater No 06/12/25 16:21 than 60 minutes Number of Risk Factors 2 06/12/25 16:21 PONV Score Moderate Risk 06/12/25 16:21 Height & Weight Height & Weight: Anesthesia: Height & Weight Height 5 ft 2 in 06/13/25 15:06 Weight: 54.3 kg 06/13/25 15:06 Body Mass Index (BMI) 21.9 07/18/25 15:06 Respiratory Assessment Respiratory Assessment - criminal justice department chair: Respiratory Tract Infection Hx - criminal justice department chair Hx Respiratory Tract Infection No 06/12/25 16:21 STOP Sleep Apnea STOP Sleep Apnea - criminal justice department chair: STOP Sleep Apnea - criminal justice department chair Hx Hypertension Yes: CONTROLLED WITH MEDS 06/12/25 16:21 Hx Sleep Apnea No 06/12/25 16:21 CPAP No 04/13/25 20:06 BIPAP No 04/13/25 20:06 Do you snore loudly (louder No 06/12/25 16:21 than talking or can be heard Do you often feel tired/ Yes 06/12/25 16:21 fatigued/ sleepy during daytime? Has anyone observed you stop No 06/12/25 16:21 breathing during sleep? STOP Results Positive 06/12/25 16:21 QUESTION #5 FULL TEXT : Do you snore loudly (louder than talking or can be heard through closed doors)? 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 Specify any problems Hx of Preganancy in last 3 No 06/12/25 16:21 Months Nurse Filling Out Transfusion DSCHRIBER 06/12/25 16:21 & Questions: Date: 06/12/25 06/12/25 16:21 Time: 16:23 06/12/25 16:21 Patient unable to answer at this time (ie. confused, unrespo /Reproduction History /Reproductive History - criminal justice department chair: /Reproductive Hx- criminal justice department chair Hx Now No 06/12/25 16:21 Gestational Age (in weeks): EDC: Hx Hx Para Hx Section SAB No 06/12/25 16:21 Active Medications Active Medications: Current Medications Generic Name Dose Route Start Last Admin Trade Name Cici PRN Reason Stop Dose Admin Cefazolin Sodium 2 gm/ Sodium 110 mls @ 200 mls/hr 06/13/25 16:30 Chloride IV 06/13/25 17:02 INTRAOP ONE Lactated Ringer's 1,000 mls @ 15 mls/hr 06/13/25 14:45 06/13/25 15:18 IV 15 mls/hr .Q48H ROJAS Administration PFSH Medical History Wears glasses Open wound Thyroid disease Walker as ambulation aid Ambulates with cane Arthritis DVT (deep venous thrombosis) High cholesterol History of ulceration Non-smoker Shortness of breath on exertion History of echocardiogram Cardiology follow-up encounter UTI (urinary tract infection) Generalized weakness Essential (primary) hypertension Stenosis of right vertebral artery Obstructive hypertrophic cardiomyopathy Syncope and collapse History of CVA (cerebrovascular accident) (07/2017) Vertigo Depression History of TIA (transient ischemic attack) Meniere disease History of asthma Home Medications ?Medication ?Instructions ?Recorded ?Last Taken ?Type aspirin 81 mg chewable tablet 81 mg PO DAILY@0800 health 07/13/17 06/12/25 History maintenance clopidogrel 75 mg tablet 75 mg PO DAILY blood thinner 07/13/17 06/12/25 History losartan 50 mg tablet 50 mg PO DAILY blood pressure #90 10/27/21 06/13/25 Rx tabs levothyroxine 25 mcg tablet 25 mcg PO DAILY thyroid 04/13/25 06/13/25 History metoprolol succinate 100 mg 100 mg PO DAILY blood pressure 04/13/25 06/13/25 History tablet,extended release 24 hr rosuvastatin 40 mg tablet 40 mg PO DAILY cholesterol 04/13/25 06/12/25 History Allergy/AdvReac Type Severity Reaction Status Date / Time hornet venom Allergy Anaphylaxis Verified 06/13/25 15:03 insect venom (yellow jacket) Allergy Anaphylaxis Verified 06/13/25 15:03 Penicillins Allergy Rash Verified 06/13/25 15:03 venom-wasp (Wasp Venom) Allergy Anaphylaxis Verified 06/13/25 15:03 Grmunyp-DDZ-SoT Reductase AdvReac muscle Verified 06/13/25 15:03 Inhibitor (Docjbfh-Utt-Ytu weakness Reductase Inhibitor) tramadol AdvReac Other Verified 06/13/25 15:03 Family History Mother , age 55 sudden cardiac CAD (coronary artery disease) Sudden cardiac Father , age 77 Lung cancer Sister carotid artery surgery CAD (coronary artery disease) Surgical History Hx of left cataract extraction Hx of right cataract extraction History of esophagogastroduodenoscopy (EGD) Hx of colonoscopy History of carpal tunnel surgery of right wrist Hx of total knee arthroplasty Hx of total knee replacement History of appendectomy History of Wendy fundoplication Social History household members: spouse Smoking Status: Former smoker alcohol intake: current alcohol intake frequency: 0-2 drinks per day Alcohol type: wine substance use type: does not use caffeine: Yes Type: coffee Number of servings: 1 what type of physical activity do you participate in: none seatbelt use: always do you feel safe at home: Yes Review of Systems (Anesthesia) ROS Narrative System reviewed and no additional complaints, except as documented.
--- NOTE | 2025-06-13 16:30 | MASS_PTH ---
PATIENT: ALLIE MARIE LOC: [facility] [place] U#:[id number] AGE/SX: 89/F ROOM: RE06/13/[address]: Dr. Akhil Leslie MD : 1935 BED: DIS: 06/13/2025 SPEC #: [id number] RECD: 06/13/25 17:39 STATUS: IRA BRANNON #: [id number] ANDREA: 06/13/25 16:[address]: Akhil Leslie DEPT: SURGICAL PATHOLOGY RECD BY: Edmund Schofield ENTERED: 06/16/25 11:06 SP TYPE: Mass OTHR DR: Dr. Angel Juan MD Tissues: A - Ureter, NOS Procedures: Surgery Specimen Level IV HEADER OPERATION: Ureteroscopy, retrograde pyelogram, biopsy right renal PRE-OP DIAGNOSIS: Hemorrhaging from right kidney, right renal pelvic mass TISSUE SUBMITTED: A- Biopsy of right ureteral mass MICROSCOPIC DIAGNOSIS A. 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 - Lamina propria not identified. - Muscularis propria not identified. COMMENT See report for additional specimen: [id number] Selected slides/images were reviewed in intradepartmental consultation by Dr Julee Lancaster ( pathology division, [facility]). MICROSCOPIC DESCRIPTION Slides are reviewed. GROSS DESCRIPTION A. Received in formalin labeled with the patient's name and date of . Designated as BX RT renal pelvic mass is a 0.9 x 0.7 x 0.2 cm pale schafer friable and somewhat papilliferous tissue fragment a blue metallic, pronged surgical device. A definitive resection margin is unable to be determined. The specimen fragmented into numerous pieces upon removal of the surgical device. Entirely submitted in 1 cassette. *Note: The specimen requisition designates the specimen as biopsy of right ureteral mass all the specimen container is designated as BX RT renal pelvic mass (SC). SC 06/16/2025 CPT:40349
--- NOTE | 2025-06-13 16:30 | FLU_PTH ---
PATIENT: ALLIE MARIE LOC: [facility] – [place] U#:[id number] AGE/SX: 89/F ROOM: RE06/13/[address]: Dr. Akhil Leslie MD : 1935 BED: DIS: 06/13/2025 SPEC #: [id number] RECD: 06/13/25 17:39 STATUS: IRA REQ #: [id number] ANDREA: 06/13/25 16:[address]: Akhil Leslie DEPT: CYTOLOGY RECD BY: Edmund Schofield ENTERED: 06/16/25 10:17 SP TYPE: Fluid OTHR DR: Dr. Angel Juan MD Tissues: A - Urine Procedures: Special Stain Group II Surgery Specimen Level IV Cytospin Fluid HEADER OPERATION: Ureteroscopy, retrograde pyelogram PRE-OP DIAGNOSIS: Hemorrhaging from right kidney, right renal pelvic mass TISSUE SUBMITTED: A- Urine for cytology - collected in OR DIAGNOSIS CYTOLOGY A. Urine (cytospin), non-voided: - Atypical cells. COMMENT See report for additional specimen : [id number]. CYTOLOGY STUDY Slides are reviewed. CYTOLOGY GROSS A. Received is 20 ml of pink-cloudy fluid labeled with the patient's name and and designated per the requisition as urine. Submitted for cytology preparation. 06/16/2025 CPT: 21256
--- NOTE | 2025-06-13 16:55 | DCINST_ITS ---
Discharge Instructions DC O2, CPAP, BIPAP needs Home O2 Discharge instructions: No Dressing / Incision Discharge Activity: Return to Normal Activity and No Restrictions Dressing / Incision Call your doctor if you observe: Fever of 101 or Higher and Uncontrolled pain Follow Up Care Please Follow Up With: Akhil Leslie MD When: Call [phone] for an appointment Test Results: Test results from this visit will be discussed in further detail at your follow- up appointment, if applicable. Discharge Plan Admission Primary Reason for Your Visit: bleeding from right kidney Attending Provider: Akhil Leslie Primary Care Provider: Angel Juan Instructions Print Language: Turkish Discharge Orders/Prescriptions Prescriptions: New ibuprofen 400 mg tablet 400 mg PO Q6H PRN (Reason: pain) Qty: 14 0RF ciprofloxacin HCl 500 mg tablet 500 mg PO BID Qty: 10 0RF Continued metoprolol succinate 100 mg tablet extended release 24 hr 100 mg PO DAILY levothyroxine 25 mcg tablet 25 mcg PO DAILY rosuvastatin 40 mg tablet 40 mg PO DAILY losartan 50 mg tablet 50 mg PO DAILY Qty: 90 3RF Held clopidogrel 75 MG tablet 75 mg PO DAILY Hold Instructions: Resume on 06/27/25. aspirin 81 MG tablet,chewable 81 mg PO DAILY@0800 Hold Instructions: Resume on 06/27/25. Referrals / Follow Up: Angel Juan MD [Primary Care Provider] - Akhil Leslie MD [Med Staff - Active Staff] - Disposition Disposition (needs filled in before D/C Order can be placed): Home, Self Care
[2025-06-13] MEDS: Cefazolin 2 GM in 0.9% Normal Saline (100mL Bag) 100 ML IV (17:00)
--- NOTE | 2025-06-13 17:23 | OP.PCM_ITS ---
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 Type of Anesthesia: General RN Documented Start/Stop Times: Operation Date: 06/13/25 16:30 Case Time Into Pre-Op 06/13/25 14:40 Procedure Start Time: 17:03 Procedure Stop Time: 17:24 Select all DRAINS/GRAFTS/IMPLANTS that apply: None Estimated Blood Loss: 2cc Specimen collected: Yes Description of specimen(s) removed: Urine for cytology and biopsy of renal mass and right renal pelvis Description of surgery: This is an 89-year-old female who presented to my office with gross hematuria CT scan was done that demonstrated that there was blood coming from the right renal pelvic area in the right kidney so put on the schedule today for a cystoscopy and diagnostic retrograde pyelogram and ureteroscopy possible biopsy I suspect there might be a malignancy. Patient was taken back to the operating room after smooth induction of anesthesia she was placed in dorsolithotomy position urethrovaginal area prepped and draped in usual fashion went in the bladder with a 21 Welsh rigid cystoure throscope the bladder was normal there was blood inside the bladder but no tumors or stones within the bladder and urethra normal left and right ureter ureters were normal I then watched the ureters and there was bloody urine effluxing from the right ureteral orifice and cannulated the right ureteral orifice with a Pollick catheter we performed a retrograde pyelogram the ureter was smooth all the way up into the kidney and then there appeared to be a filling defect in the renal pelvis and the right side I then put a wire up into the right kidney and over the wire went in with a flexible ureteroscope was able to get up into the right kidney and saw that there was a mass that was filling the right renal pelvis 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 We then performed another retrograde pyelogram and again could see the filling defect more clearly and then using a tipless basket a biopsy of the mass was taken we also sent got urine and the urine was sent for cytology and then I worked my way down the ureter I taken the mass and the mass was sent off as a specimen. We then remove the ureteroscope no stent was placed I will have her stop her aspirin or Plavix and whether get her set up for nephro ureterectomy on the right side to treat and remove this cancerous mass. Surgical Findings: Large right renal pelvic mass appeared to be TCC bleeding Complications Complications: No Admit VTE Documentation VTE Present on Admission: No VTE Mechan Device Prophylaxis: SCD's VTE Pharm Prophylaxis ordered?: No
--- NOTE | 2025-06-13 17:31 | PCM.POST.ANE ---
Anesthesia: Postop Eval I Current Vital Signs Temperature: 36 F Pulse Rate: 75 Blood Pressure: 96/44 Respiratory Rate: 14 Pulse Ox: 96 Assessment Airway patent: Yes Spontaneous unlabored respirations: Yes nausea: No Vomiting: No Anesthesia Complication: No Fluid Hydration Crystalloid volume administer (ml): 500 Total IV fluid infused: 500 Progress Note Anesthesia document: Postop Eval 1 completed: Yes
--- NOTE | 2025-06-13 19:20 | POSTOPAN2_ITS ---
Anesthesia Postop Eval I Sum Postop Eval Completion status Anesthesia document: Postop Eval 1 completed: Yes Anesthesia Postop Eval I Summary Anesthesia Postop Eval I Summary: Anesthesia Postop Eval I: Assessment Summary Airway patent Yes 06/13/25 17:31 [email or web address] Spontaneous unlabored Yes 06/13/25 17:31 [email or web address] respirations Mental status nausea No 06/13/25 17:31 [email or web address] Vomiting No 06/13/25 17:31 [facility] Anesthesia Postop Eval I: Fluid Summary Crystalloid volume administer 500 06/13/25 17:31 [facility]JYUN (ml) Colloids volume administered ( ml) Blood Product volume administered (ml) Total IV fluid infused 500 06/13/25 17:31 [facility]JYUN Anesthesia Postop Eval I: Summary Notes Anesthesia Complication No 06/13/25 17:31 [facility]JYUN Anesthesia Complication Comment: Post-operative progress note Anesthesia: Postop Eval II Evaluation Mental status: Awake and Calm Pain Level: 1 nausea: No Vomiting: No Complications Anesthesia Complication: No
--- NOTE | 2025-06-13 19:20 | PCM.POSTANE2 ---
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 TECHNICIAN.JYUN respirations Mental status nausea No 06/13/25 17:31 MANOMETER TECHNICIAN.JYUN Vomiting No 06/13/25 17:31 MANOMETER TECHNICIAN.JYUN Anesthesia Postop Eval I: Fluid Summary Crystalloid volume administer 500 06/13/25 17:31 MANOMETER TECHNICIAN.JYUN (ml) Colloids volume administered ( ml) Blood Product volume administered (ml) Total IV fluid infused 500 06/13/25 17:31 MANOMETER TECHNICIAN.JYUN Anesthesia Postop Eval I: Summary Notes Anesthesia Complication No 06/13/25 17:31 MANOMETER TECHNICIAN.JYUN Anesthesia Complication Comment: Post-operative progress note Anesthesia: Postop Eval II Evaluation Mental status: Awake and Calm Pain Level: 1 nausea: No Vomiting: No Complications Anesthesia Complication: No
[2025-06-15 19:56] LABS: Cytology, Body Fluid / CSF SEE PATHOLOGY REPORT
== END 2025-06-13 19:24 | disposition home or self-care (01) ==
LOC: SDC 14:31 → AC 14:32
PROVIDERS: PCP Family Medicine; Referring Provider Urology; Visit Provider Urology
PROC: 0TJ98ZZ Inspection of Ureter, Via Natural or Artificial Opening Endoscopic (ICD-10-PCS; CPT 52352; principal; 2025-06-13 16:20)
DX: N28.9 Disorder of kidney and ureter, unspecified (principal); I42.1 Obstructive hypertrophic cardiomyopathy; I10 Essential (primary) hypertension; E78.00 Pure hypercholesterolemia, unspecified; Z79.82 Long term (current) use of aspirin; Z79.02 Long term (current) use of antithrombotics/antiplatelets; Z79.899 Other long term (current) drug therapy; Z86.718 Personal history of other venous thrombosis and embolism; Z87.891 Personal history of nicotine dependence; Z86.73 Personal history of transient ischemic attack (TIA), and cerebral infarction without residual deficits
CPT/HCPCS: 52354; 00910; 76000; 88108; 88305; 88313; C1769; J2405

== ENCOUNTER 2025-06-27 10:22 | Inpatient (IN) | payer MEDICARE, OTHER, SELFPAY ==
--- NOTE | 2025-06-18 18:22 | PAT.ANE_ITS ---
Pre-Assessment Diagnosis/Proposed Procedure Planned Operative Procedure(s): lap nephroureterectomy right TURB Anesthesia History Anesthesia History - escort service attendant: Anesthesia History - escort service attendant Hx Hospitalization Yes: SYNCOPE/SEVERE 06/18/25 08:24 DEHYDRATION AND UTI Any Problems With Anesthesia No 06/18/25 08:24 Cholinesterase deficiency No 06/18/25 08:24 You/Your Family Experience No 06/18/25 08:24 fever (hyperthermia) with Relationship Recent Exposure to Contagious No 06/13/25 15:06 Disease Does patient have nerve No 06/18/25 08:24 stimulator Patient instructed to have device shut off --Does patient have Pacemaker or ICD? When Was Last Pacemaker Check QUESTION #4 FULL TEXT: You/Your Family Experience fever (hyperthermia) with Anesthesia Last Oral Intake Last Oral intake: Last Oral Intake NPO since Meds taken in AM with sips of water? Meds patient instructed to take am of surgery PONV PONV - escort service attendant: PONV - escort service attendant Female Yes 06/18/25 08:24 HX of Motion Sickness No 06/18/25 08:24 HX of N/V After Surgery No 06/18/25 08:24 Non-Smoker Yes 06/18/25 08:24 Duration of Surgery greater Yes 06/18/25 08:24 than 60 minutes Number of Risk Factors 3 06/18/25 08:24 PONV Score Moderate Risk 06/18/25 08:24 Height & Weight Height & Weight: Anesthesia: Height & Weight Height 5 ft 2 in 06/13/25 15:06 Respiratory Assessment Respiratory Assessment - escort service attendant: Respiratory Tract Infection Hx - escort service attendant Hx Respiratory Tract Infection No 06/18/25 08:24 STOP Sleep Apnea STOP Sleep Apnea - escort service attendant: STOP Sleep Apnea - escort service attendant Hx Hypertension Yes: CONTROLLED WITH MEDS 06/18/25 08:24 Hx Sleep Apnea No 06/18/25 08:24 CPAP No 06/18/25 08:24 BIPAP No 06/18/25 08:24 Do you snore loudly (louder No 06/18/25 08:24 than talking or can be heard Do you often feel tired/ No 06/18/25 08:24 fatigued/ sleepy during daytime? Has anyone observed you stop No 06/18/25 08:24 breathing during sleep? STOP Results Negative 06/18/25 08:24 QUESTION #5 FULL TEXT : Do you snore loudly (louder than talking or can be heard through closed doors)? 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 Specify any problems Hx of Preganancy in last 3 No 06/18/25 08:24 Months Nurse Filling Out Transfusion DSCHRIBER 06/18/25 08:24 & Questions: Date: 06/18/25 06/18/25 08:24 Time: 08:26 06/18/25 08:24 Patient unable to answer at this time (ie. confused, unrespo /Reproduction History /Reproductive History - escort service attendant: /Reproductive Hx- escort service attendant Hx Now No 06/18/25 08:24 Gestational Age (in weeks): EDC: Hx Hx Para Hx Section SAB No 06/18/25 08:24 PFSH Medical History (Updated 06/18/25 @ 08:31 by Gogo Baker) Wears glasses Open wound Thyroid disease Walker as ambulation aid Ambulates with cane Arthritis DVT (deep venous thrombosis) High cholesterol History of ulceration Non-smoker Shortness of breath on exertion History of echocardiogram Cardiology follow-up encounter UTI (urinary tract infection) Generalized weakness Essential (primary) hypertension Stenosis of right vertebral artery Obstructive hypertrophic cardiomyopathy Syncope and collapse History of CVA (cerebrovascular accident) (07/2017) Vertigo Depression History of TIA (transient ischemic attack) Meniere disease History of asthma Home Medications ?Medication ?Instructions ?Recorded ?Last Taken ?Type aspirin 81 mg chewable tablet 81 mg PO DAILY@0800 heal th 07/13/17 06/12/25 History maintenance clopidogrel 75 mg tablet 75 mg PO DAILY blood thinner 07/13/17 06/12/25 History losartan 50 mg tablet 50 mg PO DAILY blood pressur e #90 10/27/21 06/13/25 Rx tabs levothyroxine 25 mcg tablet 50 mcg PO DAILY thyroid 06/13/25 History metoprolol succinate 100 mg 100 mg PO DAILY blood pres sure 04/13/25 06/13/25 History tablet,extended release 24 hr rosuvastatin 40 mg tablet 40 mg PO DAILY cholesterol 0 04/13/25 06/12/25 History ciprofloxacin HCl 500 mg tablet 500 mg PO BID #10 tabs 06/13/25 Unknown Rx ibuprofen 400 mg tablet 400 mg PO Q6H PRN pain #14 t abs 06/13/25 Unknown Rx albuterol sulfate 90 mcg/actuation 2 inh inhalation Q6 H PRN shortness 06/18/25 Unknown History breath activated powder inhaler of breath or wheezing Allergy/AdvReac Type Severity Reaction Status Date / Time hornet venom Allergy Anaphylaxis Verified 06/18/25 08:21 insect venom (yellow jacket) Allergy Anaphylaxis Verified 06/18/25 08:21 Penicillins Allergy Rash Verified 06/18/25 08:21 venom-wasp (Wasp Venom) Allergy Anaphylaxis Verified 06/18/25 08:21 [id number]-YBD-ZeF Reductase AdvReac muscle Verified 06/18/25 08:21 Inhibitor (Shxzveg-Sae-Dwo weakness Reductase Inhibitor) tramadol AdvReac Other Verified 06/18/25 08:21 Family History Mother , age 55 sudden cardiac CAD (coronary artery disease) Sudden cardiac Father , age 77 Lung cancer Sister carotid artery surgery CAD (coronary artery disease) Surgical History (Updated 06/18/25 @ 08:31 by Gogo Baker) Hx of cystoscopy Hx of left cataract extraction Hx of right cataract extraction History of esophagogastroduodenoscopy (EGD) Hx of colonoscopy History of carpal tunnel surgery of right wrist Hx of total knee arthroplasty Hx of total knee replacement History of appendectomy History of Wendy fundoplication Social History household members: spouse Smoking Status: Former smoker alcohol intake: current alcohol intake frequency: 0-2 drinks per day Alcohol type: wine substance use type: does not use caffeine: Yes Type: coffee Number of servings: 1 what type of physical activity do you participate in: none seatbelt use: always do you feel safe at home: Yes Audit: Pertinent Findings Pertinent Findings EKG Perinent findings: April 13, 2025. Sinus rhythm with first-degree AV block. Right bundle branch block. Echo (EF%) pertinent findings: April 14, 2025. EF of 75%. PASP is 32 mmHg. No aortic valve stenosis is noted. Consult pertinent findings: February 10, 2023. Keron LYLES. 1. Obstructive hypertrophic cardiomyopathy?chronic-stable at this time. Denies any recent symptoms or events. Continue current medical therapy. 2. Hypertension?chronic-blood pressure elevated in office today. Continue metoprolol and losartan. Monitor pressures at home and notify our office. Recommendation Anesthesia Recommendation Anesthesia recommendation: OPTIMIZED for anesthesia
[2025-06-23 19:57] LABS: Hematocrit 30.3 % (37-47); Hemoglobin 9.7 g/dL (12.0-15.0); Mean Corp Hgb Conc 32.0 g/dL (32-36); Mean Corpuscular Volume 95.6 fL (81-99); Mean Platelet Vol. 10.1 fl (6.2-12.0); Platelet Count 240 K/mm3 (150-450); RBC Distribution Width CV 12.5 % (11.6-14.6); RBC Distribution Width SD 43.1 fl (35.1-43.9); Red Blood Count 3.17 M/mm3 (4.2-5.4); White Blood Count 6.8 K/mm3 (4.4-11.0)
--- NOTE | 2025-06-24 09:07 | PAT.ANESEVAL ---
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 When Was Last Pacemaker Check QUESTION #4 FULL TEXT: You/Your Family Experience fever (hyperthermia) with Anesthesia Last Oral Intake Last Oral intake: Last Oral Intake NPO since Meds taken in AM with sips of water? Meds patient instructed to take am of surgery PONV PONV - probation and parole officer: PONV - probation and parole officer Female Yes 06/18/25 08:24 HX of Motion Sickness No 06/18/25 08:24 HX of N/V After Surgery No 06/18/25 08:24 Non-Smoker Yes 06/18/25 08:24 Duration of Surgery greater Yes 06/18/25 08:24 than 60 minutes Number of Risk Factors 3 06/18/25 08:24 PONV Score Moderate Risk 06/18/25 08:24 Height & Weight Height & Weight: Anesthesia: Height & Weight Height 5 ft 2 in 06/13/25 15:06 Respiratory Assessment Respiratory Assessment - probation and parole officer: Respiratory Tract Infection Hx - probation and parole officer Hx Respiratory Tract Infection No 06/18/25 08:24 STOP Sleep Apnea STOP Sleep Apnea - probation and parole officer: STOP Sleep Apnea - probation and parole officer Hx Hypertension Yes: CONTROLLED WITH MEDS 06/18/25 08:24 Hx Sleep Apnea No 06/18/25 08:24 CPAP No 06/18/25 08:24 BIPAP No 06/18/25 08:24 Do you snore loudly (louder No 06/18/25 08:24 than talking or can be heard Do you often feel tired/ No 06/18/25 08:24 fatigued/ sleepy during daytime? Has anyone observed you stop No 06/18/25 08:24 breathing during sleep? STOP Results Negative 06/18/25 08:24 QUESTION #5 FULL TEXT : Do you snore loudly (louder than talking or can be heard through closed doors)? 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 Specify any problems Hx of Preganancy in last 3 No 06/18/25 08:24 Months Nurse Filling Out Transfusion DSCHRIBER 06/18/25 08:24 & Questions: Date: 06/18/25 06/18/25 08:24 Time: 08:26 06/18/25 08:24 Patient unable to answer at this time (ie. confused, unrespo /Reproduction History /Reproductive History - probation and parole officer: /Reproductive Hx- probation and parole officer Hx Now No 06/18/25 08:24 Gestational Age (in weeks): EDC: Hx Hx Para Hx Section SAB No 06/18/25 08:24 PFSH Medical History (Updated 06/18/25 @ 08:31 by Gogo Baker) Wears glasses Open wound Thyroid disease Walker as ambulation aid Ambulates with cane Arthritis DVT (deep venous thrombosis) High cholesterol History of ulceration Non-smoker Shortness of breath on exertion History of echocardiogram Cardiology follow-up encounter UTI (urinary tract infection) Generalized weakness Essential (primary) hypertension Stenosis of right vertebral artery Obstructive hypertrophic cardiomyopathy Syncope and collapse History of CVA (cerebrovascular accident) (07/2017) Vertigo Depression History of TIA (transient ischemic attack) Meniere disease History of asthma Home Medications ?Medication ?Instructions ?Recorded ?Last Taken ?Type aspirin 81 mg chewable tablet 81 mg PO DAILY@0800 health 07/13/17 06/12/25 History maintenance clopidogrel 75 mg tablet 75 mg PO DAILY blood thinner 07/13/17 06/12/25 History losartan 50 mg tablet 50 mg PO DAILY blood pressure #90 10/27/21 06/13/25 Rx tabs levothyroxine 25 mcg tablet 50 mcg PO DAILY thyroid 04/13/25 06/13/25 History metoprolol succinate 100 mg 100 mg PO DAILY blood pressure 04/13/25 06/13/25 History tablet,extended release 24 hr rosuvastatin 40 mg tablet 40 mg PO DAILY cholesterol 04/13/25 06/12/25 History ciprofloxacin HCl 500 mg tablet 500 mg PO BID #10 tabs 06/13/25 Unknown Rx ibuprofen 400 mg tablet 400 mg PO Q6H PRN pain #14 tabs 06/13/25 Unknown Rx albuterol sulfate 90 mcg/actuation 2 inh inhalation Q6H PRN shortness 06/18/25 Unknown History breath activated powder inhaler of breath or wheezing Allergy/AdvReac Type Severity Reaction Status Date / Time hornet venom Allergy Anaphylaxis Verified 06/18/25 08:21 insect venom (yellow jacket) Allergy Anaphylaxis Verified 06/18/25 08:21 Penicillins Allergy Rash Verified 06/18/25 08:21 venom-wasp (Wasp Venom) Allergy Anaphylaxis Verified 06/18/25 08:21 Ojzogfy-WXB-AmS Reductase AdvReac muscle Verified 06/18/25 08:21 Inhibitor (Qmggblb-Vyw-Rsy weakness Reductase Inhibitor) tramadol AdvReac Other Verified 06/18/25 08:21 Family History Mother , age 55 sudden cardiac CAD (coronary artery disease) Sudden cardiac Father , age 77 Lung cancer Sister carotid artery surgery CAD (coronary artery disease) Surgical History (Updated 06/18/25 @ 08:31 by Gogo Baker) Hx of cystoscopy Hx of left cataract extraction Hx of right cataract extraction History of esophagogastroduodenoscopy (EGD) Hx of colonoscopy History of carpal tunnel surgery of right wrist Hx of total knee arthroplasty Hx of total knee replacement History of appendectomy History of Wendy fundoplication Social History household members: spouse Smoking Status: Former smoker alcohol intake: current alcohol intake frequency: 0-2 drinks per day Alcohol type: wine substance use type: does not use caffeine: Yes Type: coffee Number of servings: 1 what type of physical activity do you participate in: none seatbelt use: always do you feel safe at home: Yes Audit: Pertinent Findings HISTORY of Pertinent Findings History of Pertinent Findings: EKG Pertinent Findings EKG Perinent findings April 13, 2025. Sinus rhythm 06/18/25 18:25 with first-degree AV block. Right bundle branch block. Echo Pertinent Findings Echo (EF%) pertinent findings April 14, 2025. EF of 75%. 06/18/25 18:25 PASP is 32 mmHg. No aortic valve stenosis is noted. Consult Pertinent Findings Consult pertinent findings February 10, 2023. Keron CA- 06/18/25 19:05 C. 1. Obstructive hypertrophic cardiomyopathy?chronic- stable at this time. Denies any recent symptoms or events. Continue current medical therapy. 2. Hypertension?chronic- blood pressure elevated in office today. Continue metoprolol and losartan. Monitor pressures at home and notify our office. Pertinent Findings Additional pertinent findings: Latest hemoglobin is 9.7. Okay to proceed. Recommendation Anesthesia Recommendation Anesthesia recommendation: OPTIMIZED for anesthesia
[2025-06-27] VITALS (18 sets, daily range): BP systolic 90–171; BP diastolic 46–87; PULSE 59–65; RESP 15–18; TEMP 36–36.6; O2SAT 93–100; BMI 20.9; BMI 23.1
--- OUTSIDE RECORDS SUMMARY | 2025-06-27 05:48 | XMS RPT_ITS | CCD ---
Author Organization [facility] Care Team Providers Care Appliance Servicer Name Role Phone Cedrick RN, Ramona Mcleod Unavailable Martha Mcrae Unavailable Dallas Edmond Unavailable Unavailable Martha Mcrae Unavailable Adore DAILY, Dr. May Snyder Primary Care Provider [phone] Dr. Ant Vale DO Emergency Provider Vaishali DAILY, Dr. Lilia Mcleod Admit Provider Vaishali DAILY, Dr. Lilia Mcleod Attending Provider Vaishali DAILY, Dr. Lilia Mcleod Other Provider Dr. Ken Parker DO Attending Provider Juan DAILY, Dr. Palacios Attending Provider Dr. Ken Parker DO [facility] AQUA AMMONIA OPERATOR-CBoubacar Attending Provider McMorrow AQUA AMMONIA OPERATOR-CBoubacar Referring Provider Anuj DAILY, Dr. Akhil Griffin Attending Provider Dr. Akhil Leslie MD Referring Provider Dr. Angel Juan MD Primary Care Provider Ken Parker Attending Unavailable May Avitia Primary Care Unavailable Lilia Tom Admitting Unavailable Lilia Tom Consulting Unavailable Akhil Leslie Admitting Unavailable Akhil Leslie Attending Unavailable Angel Juan Primary Care Unavailable Viet Srinivasan Consulting Unavailable Anuj, Mikey Attending Unavailable Akhil Leslie Referring Unavailable Drake Saudcortes Primary Care Unavailable Akhil Leslie Attending Unavailable AnujAkhil Referring Unavailable Jolliff, May S Primary Care Unavailable Jolliff, May S Primary Care Unavailable McMorrow AQUA AMMONIA OPERATOR, Boubacar Attending Unavailable McMorrow AQUA AMMONIA OPERATOR, Boubacar Referring Unavailable Philip Martinez Attending Unavailable Jolliff, May S Primary Care Unavailable White, Lilia L Consulting Unavailable White, Lilia L Attending Unavailable Jolliff, May S Primary Care Unavailable White, Lilia L Admitting Unavailable Tereletscaleb, Ken Attending Unavailable Velmaeletscaleb Ken Consulting Unavailable Allergies Allergy Classification Reported Allergen(s) Allergy Type Date of Onset Reaction(s) Facility (4 sources) Hmg-Coa Reductase Inhibitors (Statins) drug allergy 6 myalgias [facility] Work Phone: (4 sources) penicillin drug allergy 6 rash [facility] Work Phone: (4 sources) wasp venom; Translations: [WASP VENOM] allergy to substance 6 ANAPHYLAXIS [facility] Work Phone: (4 sources) YELLOW JACKETS drug allergy 6 ANAPHYLAXIS [facility] Work Phone: (4 sources) HORNETS drug allergy 6 ANAPHYLAXIS [facility] Work Phone: (9 sources) Hornet venom; Translations: [hornet venom] Allergy to substance 2 Anaphylaxis [facility] (8 sources) Penicillins Allergy to substance 2 Rash [facility] (8 sources) traMADol Drug Allergy 2 Other [facility] (9 sources) insect venom; Translations: [insect venom] Allergy to substance 2 Anaphylaxis [facility] (8 sources) venom-wasp Allergy to substance 2 Anaphylaxis [facility] (8 sources) Touyqkn-Mct-Ckn Reductase Inhibitor Propensity to adverse reactions 2 muscle weakness [facility] Comment on above: Lipitor (1 source) Penicillins Drug allergy (disorder) 5 [facility] Repository (1 source) traMADol Drug Allergy 5 [facility] (1 source) Tcvjvvm-Jhk-Nyo Reductase Inhibitor Drug allergy (disorder) 5 [facility] (1 source) venom-wasp Drug allergy (disorder) 5 [facility] Rep[facility] Medications Current Medications Medication Drug Class(es) Dates Sig (Normalized) Sig (Original) aspirin 81 mg chewable tablet (20 sources) Nonsteroidal Anti-inflammatory Drug Start: 04-28-2017 take 1 tablet by mouth once daily ASPIRIN EC 81 MG TBEC One tablet by mouth daily ASPIRIN [id number] Ramona Philip RN Start: 01-24-2017 End: 07-13-2017 take 1 tablet by mouth once daily Aspirin 81 MG tablet,chewable Active 81 mg PO DAILY@799July 13, 2017 5:09pm health maintenance On Hold: Resume on 06/27/25. Start: 08-05-2016 End: 08-10-2016 take 1 tablet by mouth once daily ASPIRIN LOW DOSE 81 MG TBEC One tablet by mouth daily ASPIRIN [id number] Philip Martinez MD Start: 08-05-2016 End: 08-10-2016 take 1 tablet by mouth once daily ASPIRIN LOW DOSE 81 MG TBEC One tablet by mouth daily ASPIRIN [id number] Shannen Daly RN Start: 02-11-2014 End: 02-26-2014 take 1 tablet by mouth once daily Aspirin 81 MG Tab.Chew Discontinued 81 mg PO DAILY@0800 February 11, 2014 12:00am February 26, 2014 9:04am ciprofloxacin 500 mg oral tablet (2 sources) Quinolone Antimicrobial Start: 06-13-2025 take 1 tablet by mouth twice daily Ciprofloxacin Hcl 500 mg tablet Active 500 mg PO TWICE A DAY 10 June 13, 2025 12:00am ibuprofen 400 mg oral tablet (2 sources) Nonsteroidal Anti-inflammatory Drug Start: 06-13-2025 take 1 tablet by mouth every six hours as needed for pain Ibuprofen 400 mg tablet Active 400 mg PO EVERY 6 HOURS as needed for pain 14 June 13, 2025 12:00am levothyroxine sodium 0.025 mg oral tablet (14 sources) l-Thyroxine Start: 04-13-2025 take 1 tablet by mouth once daily Levothyroxine 25 mcg tablet Active 25 ug PO DAILY April 13, 2025 12:00am thyroid Start: 02-10-2022 End: 04-13-2025 take 1 capsule by mouth once daily Levothyroxine 75 mcg capsule Discontinued 75 ug PO DAILY February 10, 2022 12:00am April 13, 2025 3:29pm 24 hr metoprolol succinate 100 mg extended release oral tablet (20 sources) beta-Adrenergic Beni Start: 04-13-2025 take 1 tablet by mouth once daily Metoprolol Succinate 100 mg tablet extended release 24 hr Active 100 mg PO DAILY April 13, 2025 12:00am blood pressure Start: 02-10-2023 End: 04-13-2025 Metoprolol Succinate 50 mg t ablet extended release 24 hr Discontinued 100 mg PO DAILY February 10, 2023 1:02pm April 13, 2025 3:29pm Start: 02-10-2023 take 100 mg by mouth once dara y Metoprolol Succinate Active 100 MG PO DAILY February 10, 2023 1:02pm Start: 09-13-2021 End: 02-10-2023 take 1 tablet by mouth once daily Metoprolol Succinate 50 mg tablet extended release 24 hr Discontinued 50 mg PO DAILY 30 0 September 13, 2021 12:00am February 10, 2023 1:03pm Start: 12-15-2017 End: 02-10-2022 take 1 tablet by mouth once daily Metoprolol Succinate 100 mg tablet extended release 24 hr Discontinued 100 mg PO daily December 15, 2017 1:00am February 10, 2022 1:11pm HTN Start: 07-13-2017 End: 12-15-2017 Metoprolol Succinate 50 MG t ablet extended release 24 hr Discontinued 100 mg PO DAILY July 13, 2017 5:09pm December 15, 2017 10:23am blood pressure Start: 03-24-2017 End: 12-15-2017 take 1 tablet by mouth once daily Metoprolol Succinate (Toprol Xl) 50 MG Tab.Er.24h Discontinued 100 mg PO DAILY 60 0 March 24, 2017 10:24am July 13, 2017 5:09pm Start: 08-10-2016 End: 03-24-2017 take 1 tablet by mouth once daily Metoprolol Succinate (Toprol Xl) 50 MG Tab.Er.24h Discontinued 50 mg PO DAILY January 21, 2017 1:00am March 24, 2017 10:24am Start: 08-10-2016 take 1 tablet by luz th once daily TOPROL XL 100 MG [id number] One tablet by mouth daily METOPROLOL SUCCINATE [id number] Ramona Philip RN Start: 08-10-2016 take 1 tablet by luz th once daily TOPROL XL 100 MG [id number] One tablet by mouth daily METOPROLOL SUCCINATE [id number] Ramona Philip RN Start: 08-10-2016 take 1 tablet by luz th once daily TOPROL XL 50 MG [id number] One tablet by mouth daily METOPROLOL SUCCINATE [id number] Philip Martinez MD rosuvastatin calcium 40 mg oral tablet (14 sources) HMG-CoA Reductase Inhibitor Start: 04-13-2025 take 1 tablet by mouth once daily Rosuvastatin 40 mg tablet Active 40 mg PO DAILY April 13, 2025 12:00am cholesterol Start: 02-10-2022 End: 04-13-2025 take 1 tablet by mouth once daily Rosuvastatin 20 mg tablet Discontinued 20 mg PO DAILY February 10, 2022 12:00am April 13, 2025 3:30pm Completed/Discontinued Medications Medication Drug Class(es) Dates Sig (Normalized) Sig (Original) [id number] 200 actuat albuterol 0.09 mg/actuat metered dose inhaler (20 sources) beta2-Adrenergic Agonist Start: 12-08-2017 End: 02-10-2022 Albuterol Sulfate (Ventolin Hfa) 90 mcg/actuation HFA aerosol inhaler Discontinued 1 NMA INHALATION Q4H as needed for Shortness Of Breath December 08, 2017 1:00am February 10, 2022 1:06pm Start: 12-08-2017 End: 02-10-2022 take 1 puff(s) by inhalation every four hours Albuterol Sulfate (Ventolin Hfa) 90 mcg/actuation HFA aerosol inhaler Discontinued 1 PUFF INHALATION Q4H December 08, 2017 1:00am February 10, 2022 1:06pm Start: 01-24-2017 End: 01-27-2017 take 2.5 mg by inhalation every four hours as needed for wheezing Albuterol Sulfate 2.5 MG/3 ML Vial.Neb. Discontinued 2.5 mg INHALATION EVERY 4 HOURS NEEDED as needed for shortness of breath, wheezing 0 0 January 24, 2017 1:00am January 27, 2017 1:29pm Start: 08-05-2016 take 1-2 puff(s) by inhalation every four hours as needed VENTOLIN HFA 108 (90 Base) MCG/ACT AERS 1-2 puffs q 4 hours as needed - 90mcg/inh ALBUTEROL SULFATE [id number] Shannen Daly RN Start: 08-05-2016 take 1-2 puff(s) by inhalation every four hours as needed VENTOLIN HFA 108 (90 Base) MCG/ACT AERS 1-2 puffs q 4 hours as needed - 90mcg/inh ALBUTEROL SULFATE [id number] Shannen Daly RN Start: 02-11-2014 End: 01-27-2017 Albuterol Sulfate (Ventolin Hfa) 1 INHALER inhaler Discontinued 1 - 2 NMA INHALATION EVERY 4 HOURS NEEDED as needed for Wheezing February 11, 2014 12:00am January 27, 2017 1:30pm Start: 02-11-2014 End: 01-27-2017 take 1 puff(s) by inhalation every four hours as needed Albuterol Sulfate (Ventolin Hfa) 1 INHALER inhaler Discontinued 1 - 2 PUFF INHALATION EVERY 4 HOURS NEEDED February 11, 2014 12:00am January 27, 2017 1:30pm amLODIPine 5 mg oral tablet (16 sources) Dihydropyridine Calcium Channel Beni Start: 01-24-2017 End: 03-24-2017 take 1 tablet by mouth once daily Amlodipine 5 MG tablet Discontinued 5 mg PO DAILY 30 0 January 27, 2017 1:34pm March 24, 2017 10:19am atorvastatin 80 mg oral tablet (8 sources) HMG-CoA Reductase Inhibitor Start: 01-24-2017 End: 01-27-2017 take 1 tablet by mouth at bedtime Atorvastatin 80 MG tablet Discontinued 80 mg PO AT BEDTIME 0 January 24, 2017 1:00am January 27, 2017 1:33pm cefdinir 300 mg oral capsule (5 sources) Cephalosporin Antibacterial Start: 04-14-2025 End: 06-12-2025 take 1 capsule by mouth twice daily Cefdinir 300 mg capsule Discontinued 300 mg PO TWICE A DAY 14 0 April 14, 2025 12:00am June 12, 2025 4:19pm Start on 04/15/2025 cholecalciferol 5000 unt oral capsule (2 sources) Vitamin D Start: 08-05-2016 take 1 tablet by mouth once daily D 5000 5000 UNIT CAPS One tablet by mouth daily CHOLECALCIFEROL [id number] Philip Martinez MD clopidogrel 75 mg oral tablet (20 sources) [id number] Platelet Inhibitor Start: 08-10-2016 End: 07-13-2017 take 1 tablet by mouth once daily Clopidogrel 75 MG tablet Discontinued 75 mg PO DAILY 30 January 27, 2017 1:34pm July 13, 2017 5:09pm Diazide (8 sources) Start: 02-11-2014 End: 06-23-2016 Diazide Discontinued 1 {tbl} PO DAILY February 11, 2014 12:00am June 23, 2016 12:02pm Start: 02-11-2014 End: 06-23-2016 take 1 tablet by mouth once daily Diazide Discontinued 1 TABLET PO DAILY February 11, 2014 12:00am June 23, 2016 12:02pm Start: 02-11-2014 End: 06-23-2016 take 1 tablet by mouth once daily Diazide Discontinued 1 TABLET PO DAILY February 10, 2014 11:00pm June 23, 2016 11:02am doxycycline monohydrate 100 mg oral capsule (8 sources) Tetracycline-class Drug Start: 01-21-2017 End: 01-24-2017 take 1 capsule by mouth twice daily Doxycycline Monohydrate 100 MG capsule Discontinued 100 mg PO TWICE A DAY January 21, 2017 1:00am January 24, 2017 8:57am [id number] 0.3 ml EPINEPHrine 1 mg/ml auto-injector (4 sources) alpha-Adrenergic Agonist, beta-Adrenergic Agonist, Catecholamine Start: 08-05-2016 EPIPEN 2-LORETTA 0.3 MG/0.3ML SOAJ as needed EPINEPHRINE [id number] Shannen Daly RN Start: 08-05-2016 EPIPEN 2-LORETTA 0 .3 MG/0.3ML SOAJ as needed EPINEPHRINE [id number] Shannen Daly RN FLUoxetine 20 mg oral capsule (12 sources) Serotonin Reuptake Inhibitor Start: 08-05-2016 take 1 tablet by mouth once daily PROZAC 20 MG CAPS One tablet by mouth daily FLUOXETINE HCL [id number] Shannen Daly RN Start: 02-11-2014 End: 02-10-2022 take 1 capsule by mouth at bedtime Fluoxetine 20 MG capsule Discontinued 20 mg PO AT BEDTIME February 11, 2014 12:00am February 10, 2022 1:06pm depression 28 actuat fluticasone propionate 0.25 mg/actuat dry powder inhaler (10 sources) Corticosteroid Start: 06-24-2017 End: 02-10-2022 Fluticasone Propionate 1 PUFF inhaler Discontinued 1 NMA INHALATION TWICE A DAY June 24, 2017 12:00am February 10, 2022 1:06pm breathing Start: 06-24-2017 End: 02-10-2022 take 1 puff(s) by inhalation twice daily Fluticasone Propionate Discontinued 1 PUFF INHALATION TWICE A DAY June 24, 2017 12:00am February 10, 2022 1:06pm Start: 05-02-2017 take 1 puff(s) by in halation twice daily FLOVENT DISKUS 250 MCG/BLIST AEPB inhale 1 puff twice daily FLUTICASONE PROPIONATE (INHAL) [id number] Philip Martinez MD gabapentin 300 mg oral capsule (8 sources) Anti-epileptic Agent Start: 01-21-2017 End: 01-27-2017 take 1 capsule by mouth at bedtime Gabapentin (Neurontin) 300 MG capsule Discontinued 300 mg PO AT BEDTIME January 21, 2017 1:00am January 27, 2017 1:33pm hydroCHLOROthiazide 12.5 mg / lisinopril 10 mg oral tablet (8 sources) Thiazide Diuretic, Angiotensin Converting Enzyme Inhibitor Start: 08-05-2016 End: 10-13-2016 take 1 tablet by mouth once daily LISINOPRIL-HYDRO CHLOROTHIAZIDE 10-12.5 MG TABS One tablet by mouth daily LISINOPRIL-HYDRO CHLOROTHIAZIDE [id number] Philip Martinez MD hydroCHLOROthiazide 25 mg / triamterene 37.5 mg oral capsule (8 sources) Potassium-sparing Diuretic, Thiazide Diuretic Start: 08-21-2017 End: 12-08-2017 Triamterene-Hydr ochlorothiazid 1 CAP capsule Discontinued 1 NMA PO DAILY August 21, 2017 12:00am December 08, 2017 11:20am Start: 08-21-2017 End: 12-08-2017 take 1 capsule by mouth once daily Triamterene-Hydrochlorothiazid Discontin ued 1 CAP PO DAILY August 21, 2017 12:00am December 08, 2017 11:20am levoFLOXacin 250 mg oral tablet (8 sources) Quinolone Antimicrobial Start: 08-23-2017 End: 12-08-2017 take 1 tablet by mouth once daily Levofloxacin 250 MG tablet Discontinued 250 mg PO DAILY@0600 5 0 August 23, 2017 12:00am December 08, 2017 11:18am loratadine 10 mg oral capsule (12 sources) Start: 08-05-2016 take 1 tablet by mouth once daily CLARITIN 10 MG CAPS One tablet by mouth daily LORATADINE [id number] Shannen Daly RN Start: 02-11-2014 End: 02-10-2022 take 1 tablet by mouth once daily Loratadine 10 MG tablet Discontinued 10 mg PO DAILY February 11, 2014 12:00am February 10, 2022 1:06pm alergies losartan potassium 50 mg oral tablet (20 sources) Angiotensin 2 Receptor Beni Start: 02-05-2019 End: 02-05-2019 take 1 tablet by mouth once daily Losartan 100 mg tablet Discontinued 100 mg PO DAILY February 05, 2019 12:00am February 05, 2019 1:33pm Start: 08-07-2018 End: 10-27-2021 take 1 tablet by mouth once daily Losartan 50 mg tablet Discontinued 50 mg PO DAILY September 30, 2020 7:08pm October 27, 2021 3:20pm Start: 12-08-2017 End: 08-07-2018 take 1 tablet by mouth once daily Losartan 100 mg tablet Discontinued 100 mg PO daily December 08, 2017 1:00am August 07, 2018 3:29pm HTN Start: 07-13-2017 End: 12-08-2017 take 100 mg by mouth at bedtime Losartan Discontinued 100 MG PO AT BEDTIME July 13, 2017 5:09pm December 08, 2017 11:18am Start: 03-24-2017 End: 12-08-2017 take 2 tablets by mouth at bedtime Losartan 50 MG tablet Discontinued 100 mg PO AT BEDTIME July 13, 2017 5:09pm December 08, 2017 11:18am blood pressure Start: 12-29-2016 End: 03-24-2017 take 1 tablet by mouth once daily Losartan (Cozaar) 50 MG tablet Discontinued 50 mg PO DAILY January 21, 2017 1:00am March 24, 2017 10:24am Start: 12-29-2016 take 1 tablet by luz th once daily LOSARTAN POTASSIUM 100 MG TABS One tablet by mouth daily LOSARTAN POTASSIUM [id number] Ramona Philip RN meclizine hydrochloride 12.5 mg oral tablet (12 sources) Antiemetic Start: 12-08-2017 End: 02-05-2019 Meclizine 12.5 mg tablet Discontinued 12.5 mg PO NEEDED as needed for Dizziness December 08, 2017 1:00am February 05, 2019 1:31pm Start: 08-05-2016 take 1 tablet by luz th four times daily as needed MECLIZINE HCL 12.5 MG TABS One tablet by mouth four times daily as needed MECLIZINE HCL [id number] Shannen Daly RN 120 actuat mometasone furoate 0.22 mg/actuat dry powder inhaler (4 sources) Corticosteroid Start: 08-05-2016 take 2 puff(s) by inhalation at bedtime ASMANEX 120 METERED DOSES 220 MCG/INH AEPB inhale 2 puffs at bedtime MOMETASONE FUROATE [id number] Shannen Daly RN Start: 08-05-2016 take 2 puff(s) by in halation at bedtime ASMANEX 120 METERED DOSES 220 MCG/INH AEPB inhale 2 puffs at bedtime MOMETASONE FUROATE [id number] Shannen Daly RN MULTIPLE VITAMIN (4 sources) Start: 04-28-2017 take 1 tablet by luz th every twenty-four hours MULTIVITAMINS TABS One tablet by mouth daily MULTIPLE VITAMIN Ramona Philip RN MULTIPLE VITAMINS-MINERALS (2 sources) Start: 08-05-2016 take 1 tablet by luz th once daily MULTIVITAMIN ADULT TABS One tablet by mouth daily MULTIPLE VITAMINS-MINERALS [id number] Shannen Daly RN Start: 08-05-2016 End: 08-10-2016 take 1 tablet by mouth once daily MULTIVITAMIN ADULT TABS One tablet by mouth daily MULTIPLE VITAMINS-MINERALS [id number] Philip Martinez MD MULTIPLE VITAMINS-MINERALS (6 sources) Start: 08-05-2016 take 1 tablet by mouth once daily MULTIVITAMIN ADULT TABS One tablet by mouth daily MULTIPLE VITAMINS-MINERALS [id number] Shannen Daly RN Start: 08-05-2016 End: 08-10-2016 take 1 tablet by mouth once daily MULTIVITAMIN ADULT TABS One tablet by mouth daily MULTIPLE VITAMINS-MINERALS [id number] Philip Martinez MD Multivitamin preparation (2 sources) Start: 12-08-2017 End: 12-15-2017 take 1 tablet by mouth once daily Multivitamin Discontinued 1 TABLET PO daily December 08, 2017 1:00am December 15, 2017 10:24am Start: 12-08-2017 End: 12-15-2017 take 1 tablet by mouth once daily Multivitamin Discontinued 1 TABLET PO daily December 08, 2017 12:00am December 15, 2017 9:24am Multivitamin tablet (6 sources) Start: 12-08-2017 End: 12-15-2017 Multivitamin tablet Discontinued 1 {tbl} PO daily December 08, 2017 1:00am December 15, 2017 10:24am omeprazole 20 mg delayed release oral capsule (6 sources) Proton Pump Inhibitor Start: 08-05-2016 End: 05-02-2017 take 1 tablet by mouth once daily OMEPRAZOLE 20 MG CPDR One tablet by mouth daily OMEPRAZOLE [id number] Philip Martinez MD pantoprazole 40 mg delayed release oral tablet (20 sources) Proton Pump Inhibitor Start: 12-08-2017 End: 02-10-2022 Pantoprazole 40 mg tablet,delayed release (DR/EC) Discontinued 40 mg PO NEEDED as needed for reflux December 08, 2017 1:00am February 10, 2022 1:06pm Start: 04-28-2017 take 1 tablet by luz once daily PANTOPRAZOLE SODIUM 20 MG TBEC One tablet by mouth daily PANTOPRAZOLE SODIUM [id number] Ramona Philip RN Start: 04-28-2017 take 1 tablet by luz th once daily PROTONIX 40 MG TBEC One tablet by mouth daily PANTOPRAZOLE SODIUM [id number] Philip Martinez MD Start: 01-21-2017 End: 12-08-2017 take 2 tablets by mouth once daily Pantoprazole 20 MG tablet,delayed release (DR/EC) Discontinued 40 mg PO DAILY January 21, 2017 1:00am December 08, 2017 11:16am gerd Start: 01-21-2017 End: 12-08-2017 take 40 mg by mouth once daily Pantoprazole Discontinu ed 40 MG PO DAILY January 21, 2017 1:00am December 08, 2017 11:16am microencapsulated potassium chloride 10 meq extended release oral tablet (8 sources) Start: 08-23-2017 End: 12-08-2017 take 1 tablet by mouth once daily Potassium Chloride 10 MEQ tablet Discontinued 10 meq PO DAILY 30 August 23, 2017 12:00am December 08, 2017 11:20am pravastatin sodium 40 mg oral tablet (20 sources) HMG-CoA Reductase Inhibitor Start: 01-27-2017 End: 02-10-2022 take 1 tablet by mouth at bedtime Pravastatin 40 MG tablet Discontinued 40 mg PO AT BEDTIME July 13, 2017 5:09pm February 10, 2022 1:06pm cholesterol Start: 06-23-2016 End: 01-24-2017 take 1 tablet by mouth at bedtime Pravastatin 40 MG tablet Discontinued 40 mg PO AT BEDTIME June 23, 2016 12:00am January 24, 2017 8:57am predniSONE 10 mg oral tablet (16 sources) Start: 01-08-2018 End: 08-07-2018 Prednisone 10 MG tablet Discontinued 10 mg PO DIRECTED January 08, 2018 1:00am August 07, 2018 3:21pm TAKE 4 TABLETS BY MOUTH DAILY WITH FOOD FOR 3 DAYS, THEN TAKE 3 TABLETS BY MOUTH DAILY WITH FOOD FOR 3 DAYS, THEN TAKE 2 TABLETS BY MOUTH DAILY WITH FOOD FOR 3 DAYS, THEN TAKE 1 TABLETS BY MOUTH DAILY WITH FOOD FOR 3 DAYS, THEN STOP Start: 01-21-2017 End: 01-24-2017 take 1 tablet by mouth once daily Prednisone 10 MG tablet Discontinued 10 mg PO DAILY January 21, 2017 1:00am January 24, 2017 8:57am sulfamethoxazole 800 mg / trimethoprim 160 mg oral tablet (7 sources) Dihydrofolate Reductase Inhibitor Antibacterial, Sulfonamide Antimicrobial Start: 02-26-2024 End: 04-13-2025 Sulfamethoxazole-Trimethopri m (Bactrim Ds) 800-160 mg tablet Discontinued 1 {tbl} PO TWICE A DAY 14 7 0 February 26, 2024 12:00am April 13, 2025 3:30pm triamcinolone acetonide 0.055 mg/actuat metered dose nasal spray (12 sources) Corticosteroid Start: 08-05-2016 take 1 spray(s ) nasal route once daily NASACORT ALLERGY 24HR 55 MCG/ACT AERO 1 spray each nostril daily TRIAMCINOLONE ACETONIDE [id number] Shannen Daly RN Start: 06-01-2016 End: 02-10-2022 Triamcinolone Acetonide 1 SP RAY aerosol,spray Discontinued 1 NMA NS DAILY June 01, 2016 12:00am February 10, 2022 1:06pm allergies Start: 06-01-2016 End: 02-10-2022 Triamcinolone Acetonide Disc ontinued 1 SPRAY NS DAILY June 01, 2016 12:00am February 10, 2022 1:06pm 24 hr venlafaxine 37.5 mg extended release oral capsule (12 sources) Serotonin and Norepinephrine Reuptake Inhibitor Start: 12-08-2017 End: 12-15-2017 take 1 capsule by mouth every twenty-four hours at bedtime Venlafaxine 37.5 mg capsule,extended release 24hr Discontinued 37.5 mg PO AT BEDTIME December 08, 2017 1:00am December 15, 2017 10:24am Start: 08-05-2016 take 1 tablet by luz th once daily at bedtime VENLAFAXINE HCL 37.5 MG TABS One tablet by mouth daily at bedtime VENLAFAXINE HCL [id number] Shannen Daly RN vitamin b 12 1 mg oral tablet (4 sources) Vitamin B12 Start: 08-05-2016 take 1 tablet by mouth once daily VITAMIN B-12 1000 MCG TABS One tablet by mouth daily CYANOCOBALAMIN [id number] Shannen Daly RN zolpidem tartrate 5 mg oral tablet (6 sources) gamma-Aminobuty bob Acid-ergic Agonist Start: 04-28-2017 End: 05-02-2017 take 1 tablet by mouth at bedtime AMBIEN 5 MG TABS One tablet by mouth at bedtime. ZOLPIDEM TARTRATE [id number] Philip Martinez MD Problems Active Problems Problem Classification Problem Date Documented Date Episodic/Chronic Acute bronchitis (8 sources) Acute bronchitis; Translations: [Acute bronchitis, unspecified] 07-31-2018 Episodic Acute cerebrovascular disease (4 sources) Cerebrovascular accident; Translations: [Cerebral infarction, unspecified] Onset: 04-28-2017 04-28-2017 Chronic Asthma (12 sources) Asthma; Translations: [Unspecified asthma, uncomplicated] Onset: 08-05-2016 08-05-2016 Chronic Cardiac dysrhythmias (8 sources) Bradycardia; Translations: [Bradycardia, unspecified] 09-21-2021 Episodic Chronic obstructive pulmonary disease and bronchiectasis (8 sources) Bronchitis; Translations: [Bronchitis, not specified as acute or chronic] 07-31-2018 Episodic Conditions associated with dizziness or vertigo (8 sources) Vertigo; Translations: [Dizziness and giddiness] 07-31-2018 Episodic Disorders of lipid metabolism (12 sources) Hyperlipidemia; Translations: [Hyperlipidemia, unspecified] Onset: 08-05-2016 08-05-2016 Chronic E Codes: Fall (8 sources) Fall in home; Translations: [Unspecified fall, initial encounter] 09-21-2021 Episodic Essential hypertension (12 sources) Hypertensive disorder; Translations: [Essential hypertension] Onset: 08-05-2016 08-05-2016 Chronic Comment on above: CONTROLLED WITH MEDS Fluid and electrolyte disorders (12 sources) Dehydration; Translations: [Dehydration] 04-13-2025 Episodic Genitourinary symptoms and ill-defined conditions (1 source) Gross hematuria; Translations: [Gross hematuria] Onset: 06-16-2025 Episodic Malaise and fatigue (12 sources) Asthenia; Translations: [Weakness] 04-13-2025 Episodic Occlusion or stenosis of precerebral arteries (12 sources) Vertebral artery stenosis; Translations: [Stenosis of right vertebral artery] Onset: 08-05-2016 08-05-2016 Chronic Other circulatory disease (1 source) Hypotension, unspecified; Translations: [Hypotension, unspecified] Onset: 04-23-2025 Episodic Other connective tissue disease (1 source) Muscle weakness of limb; Translations: [Other symptoms and signs involving the musculoskeletal system] Episodic Other connective tissue disease (7 sources) Monoparesis - leg; Translations: [Other symptoms and signs involving the musculoskeletal system] 07-31-2018 Episodic Other diseases of kidney and ureters (1 source) Other specified disorders of kidney and ureter; Translations: [Other specified disorders of kidney and ureter] Onset: 06-19-2025 Chronic Other injuries and conditions due to external causes (8 sources) Closed injury of head; Translations: [Unspecified injury of head, initial encounter] 09-21-2021 Episodic Other upper respiratory infections (8 sources) Sinusitis; Translations: [Chronic sinusitis, unspecified] 07-31-2018 Chronic Dee Dee-; endo-; and myocarditis; cardiomyopathy (12 sources) Obstructive hypertrophic cardiomyopathy; Translations: [Hypertrophic obstructive cardiomyopathy] Onset: 08-10-2016 08-10-2016 Chronic Respiratory failure; insufficiency; arrest (adult) (8 sources) Acute respiratory failure; Translations: [Acute respiratory failure with hypoxia] 07-31-2018 Episodic Septicemia (except in labor) (8 sources) Sepsis; Translations: [Sepsis, unspecified organism] 07-31-2018 Episodic Superficial injury; contusion (8 sources) Contusion of elbow; Translations: [Contusion of right elbow, initial encounter] 09-21-2021 Episodic Thyroid disorders (7 sources) Hypothyroidism; Translations: [Hypothyroidism, unspecified] Onset: 06-02-2025 03-05-2024 Chronic Transient cerebral ischemia (4 sources) Transient cerebral ischemia; Translations: [Transient cerebral ischemic attack, unspecified] Onset: 08-05-2016 08-05-2016 Chronic Unclassified (4 sources) Obstructive sleep apnea syndrome; Translations: [Obstructive sleep apnea (adult) (pediatric)] Onset: 10-13-2016 10-13-2016 Chronic Unclassified (3 sources) Long-term drug therapy; Translations: [Other exterminator helper termite (current) drug therapy] Onset: 08-05-2016 08-05-2016 Urinary tract infections (20 sources) Acute cystitis; Translations: [Acute cystitis without hematuria] Onset: 04-15-2025 02-26-2024 Episodic Comment on above: 03/2025 Past or Other Problems Problem Classification Problem Date Documented Date Episodic/Chronic Other aftercare (1 source) Other exterminator helper termite (current) drug therapy; Translations: [Other exterminator helper termite (current) drug therapy] Onset: 08-05-2016 08-05-2016 Episodic Other circulatory disease (8 sources) History of cerebrovascular accident; Translations: [Personal history of transient ischemic attack (TIA), and cerebral infarction without residual deficits] Onset: 07-28-2017 02-04-2021 Episodic Comment on above: periventricular whit e matter ischemic changes 06/2016; Acute infarcts involving bilateral basal ganglia and right jacobsen radiata. 01/22/2017l Multiple chronic white matter ischemic changes in both cerebral hemispheres but there are 2 additional chronic ischemic changes in the genu of the left internal capsule and in the right posterior internal capsule previous acute ischemic infarct in the right posterior periventricular white matter extending down to the right retrolenticular 08/22/2017 Syncope (4 sources) Syncope and collapse; Translations: [Syncope and collapse] Onset: 04-28-2017 04-28-2017 Episodic Results Test Name Value Interpretation Reference Range Facility MR/PAT.ANEon 06-24-2025 MR/PAT.[facility] Medical Records Department [address] [place] [address] PAT - Anesthesia 06/24/25 0907 MR#: [id number] Acct: [id number] Name: ALLIE MARIE Rep #: [id number] : 1935 89 From: Viet Srinivasan MD PCP: Dr. Angel Juan MD Status:PRE IN Y Race: C Location: [facility] Pre-Assessment Diagnosis/Proposed Procedure Planned Operative Procedure(s): lap nephroureterectomy right TURB Anesthesia History Anesthesia History - harness tier: Anesthesia History - harness tier Hx Hospitalization Yes: SYNCOPE/SEVERE 06/18/25 08:24 DEHYDRATION AND UTI Any Problems With Anesthesia No 06/18/25 08:24 Cholinesterase deficiency No 06/18/25 08:24 You/Your Family Experience No 06/18/25 08:24 fever (hyperthermia) with Relationship Recent Exposure to Contagious No 06/13/25 15:06 Disease Does patient have nerve No 06/18/25 08:24 stimulator Patient instructed to have device shut off --Does patient have Pacemaker or ICD? When Was Last Pacemaker Check QUESTION #4 FULL TEXT: You/Your Family Experience fever (hyperthermia) with Anesthesia Last Oral Intake Last Oral intake: Last Oral Intake NPO since Meds taken in AM with sips of water? Meds patient instructed to take am of surgery PONV PONV - harness tier: PONV - harness tier Female Yes 06/18/25 08:24 HX of Motion Sickness No 06/18/25 08:24 HX of N/V After Surgery No 06/18/25 08:24 Non-Smoker Yes 06/18/25 08:24 Duration of Surgery greater Yes 06/18/25 08:24 than 60 minutes Number of Risk Factors 3 06/18/25 08:24 PONV Score Moderate Risk 06/18/25 08:24 Height Weight Height Weight: Anesthesia: Height Weight Height 5 ft 2 in 06/13/25 15:06 Respiratory Assessment Respiratory Assessment - harness tier: Respiratory Tract Infection Hx - harness tier Hx Respiratory Tract Infection No 06/18/25 08:24 STOP Sleep Apnea STOP Sleep Apnea - harness tier: STOP Sleep Apnea - harness tier Hx Hypertension Yes: CONTROLLED WITH MEDS 06/18/25 08:24 Hx Sleep Apnea No 06/18/25 08:24 CPAP No 06/18/25 08:24 BIPAP No 06/18/25 08:24 Do you snore loudly (louder No 06/18/25 08:24 than talking or can be heard Do you often feel tired/ No 06/18/25 08:24 fatigued/ sleepy during daytime? Has anyone observed you stop No 06/18/25 08:24 breathing during sleep? STOP Results Negative 06/18/25 08:24 QUESTION #5 FULL TEXT : Do you snore loudly (louder than talking or can be heard through closed doors)? 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 Specify any problems Hx of Preganancy in last 3 No 06/18/25 08:24 Months Nurse Filling Out Transfusion DSCHRIBER 06/18/25 08:24 Questions: Date: 06/18/25 06/18/25 08:24 Time: 08:26 06/18/25 08:24 Patient unable to answer at this time (ie. confused, unrespo /Reproductio n History /Reproductiv e History - harness tier: /Reproductiv e Hx- harness tier Hx Now No 06/18/25 08:24 Gestational Age (in weeks): EDC: Hx Hx Para Hx Section SAB No 06/18/25 08:24 [facility] Medical History (Updated 06/18/25 @ 08:31 by Gogo Baker) Wears glasses Open wound Thyroid disease Walker as ambulation aid Ambulates with cane Arthritis DVT (deep venous thrombosis) High cholesterol History of ulceration Non-smoker Shortness of breath on exertion History of echocardiogram Cardiology follow-up encounter UTI (urinary tract infection) Generalized weakness Essential (primary) hypertension Stenosis of right vertebral artery Obstructive hypertrophic cardiomyopathy Syncope and collapse History of CVA (cerebrovascular accident) (07/2017) Vertigo Depression History of TIA (transient ischemic attack) Meniere disease History of asthma Home Medications ???Medication ???Instructions ???Recorded ???Last Taken ???Type aspi (more content not included)... Normal [facility] CBC-Complete Blood Cnt No Di ffon 06-23-2025 Erythrocyte distribution width (RBC) [Ratio] 12.5 % Normal 11.6-14.6 [facility] Comment on above: Performed By: #### L 100.0500 #### [facility] [address] [place], [address] Hematocrit (Bld) [Volume fraction] 30.3 % Low 37-47 [facility] Comment on above: Performed By: #### L 100.0500 #### [facility] [address] [place], [address] Hemoglobin (Bld) [Mass/Vol] 9.7 g/dL Low 12.0-15.0 [facility] Comment on above: Performed By: #### L 100.0500 #### [facility] [address] [place], [address] MCH (RBC) [Entitic mass] 30.6 pg Normal 27.0-32.0 [facility] Comment on above: Performed By: #### L 100.0500 #### [facility] [address] [place], [address] MCHC (RBC) [Mass/Vol] 32.0 g/dL Normal 32-36 [facility] Comment on above: Performed By: #### L 100.0500 #### [facility] [address] [place], [address] MCV (RBC) [Entitic vol] 95.6 fL Normal 81-99 [facility] Comment on above: Performed By: #### L 100.0500 #### [facility] [address] [place], [address] Platelet mean volume (Bld) [Entitic vol] 10.1 fL Normal 6.2-12.0 [facility] Comment on above: Performed By: #### L 100.0500 #### [facility] [address] [place], [address] Platelets (Bld) [#/Vol] 240 10*3/uL Normal 150-450 [facility] Comment on above: Performed By: #### L 100.0500 #### [facility] [address] [place], [address] RBC (Bld) [#/Vol] 3.17 10*6/uL Low 4.2-5.4 [facility] Comment on above: Performed By: #### L 100.0500 #### [facility] [address] [place], [address] RDW SD 43.1 fl Normal 35.1-43.9 [facility] Comment on above: Performed By: #### L 100.0500 #### [facility] [address] [place], [address] WBC (Bld) [#/Vol] 6.8 10*3/uL Normal 4.4-11.0 [facility] Comment on above: Performed By: #### L 100.0500 #### [facility] [address] [place], [address] MR/PAT.Isaias 06-18-2025 MR/PAT.[facility] Medical Records Department [address] [place] [address] PAT - Anesthesia 06/18/25 1822 MR#: [id number] Acct: [id number] Name: ALLIE MARIE Rep #: [id number] : 1935 89 From: Viet Srinivasan MD PCP: Dr. Angel Juan MD Status:PRE [facility] [place] Race: C [place] [facility] Pre-Assessment Diagnosis/Proposed Procedure Planned Operative Procedure(s): lap nephroureterectomy right TURB Anesthesia History Anesthesia History - harness tier: Anesthesia History - harness tier Hx Hospitalization Yes: SYNCOPE/SEVERE 06/18/25 08:24 DEHYDRATION AND UTI Any Problems With Anesthesia No 06/18/25 08:24 Cholinesterase deficiency No 06/18/25 08:24 You/Your Family Experience No 06/18/25 08:24 fever (hyperthermia) with Relationship Recent Exposure to Contagious No 06/13/25 15:06 Disease Does patient have nerve No 06/18/25 08:24 stimulator Patient instructed to have device shut off --Does patient have Pacemaker or ICD? When Was Last Pacemaker Check QUESTION #4 FULL TEXT: You/Your Family Experience fever (hyperthermia) with Anesthesia Last Oral Intake Last Oral intake: Last Oral Intake NPO since Meds taken in AM with sips of water? Meds patient instructed to take am of surgery PONV PONV - harness tier: PONV - harness tier Female Yes 06/18/25 08:24 HX of Motion Sickness No 06/18/25 08:24 HX of N/V After Surgery No 06/18/25 08:24 Non-Smoker Yes 06/18/25 08:24 Duration of Surgery greater Yes 06/18/25 08:24 than 60 minutes Number of Risk Factors 3 06/18/25 08:24 PONV Score Moderate Risk 06/18/25 08:24 Height Weight Height Weight: Anesthesia: Height Weight Height 5 ft 2 in 06/13/25 15:06 Respiratory Assessment Respiratory Assessment - harness tier: Respiratory Tract Infection Hx - harness tier Hx Respiratory Tract Infection No 06/18/25 08:24 STOP Sleep Apnea STOP Sleep Apnea - harness tier: STOP Sleep Apnea - harness tier Hx Hypertension Yes: CONTROLLED WITH MEDS 06/18/25 08:24 Hx Sleep Apnea No 06/18/25 08:24 CPAP No 06/18/25 08:24 BIPAP No 06/18/25 08:24 Do you snore loudly (louder No 06/18/25 08:24 than talking or can be heard Do you often feel tired/ No 06/18/25 08:24 fatigued/ sleepy during daytime? Has anyone observed you stop No 06/18/25 08:24 breathing during sleep? STOP Results Negative 06/18/25 08:24 QUESTION #5 FULL TEXT : Do you snore loudly (louder than talking or can be heard through closed doors)? 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 Specify any problems Hx of Preganancy in last 3 No 06/18/25 08:24 Months Nurse Filling Out Transfusion DSCHRIBER 06/18/25 08:24 Questions: Date: 06/18/25 06/18/25 08:24 Time: 08:26 06/18/25 08:24 Patient unable to answer at this time (ie. confused, unrespo /Reproductio n History /Reproductiv e History - harness tier: /Reproductiv e Hx- harness tier Hx Now No 06/18/25 08:24 Gestational Age (in weeks): EDC: Hx Hx Para Hx Section SAB No 06/18/25 08:24 [facility] Medical History (Updated 06/18/25 @ 08:31 by Gogo Baker) Wears glasses Open wound Thyroid disease Walker as ambulation aid Ambulates with cane Arthritis DVT (deep venous thrombosis) High cholesterol History of ulceration Non-smoker Shortness of breath on exertion History of echocardiogram Cardiology follow-up encounter UTI (urinary tract infection) Generalized weakness Essential (primary) hypertension Stenosis of right vertebral artery Obstructive hypertrophic cardiomyopathy Syncope and collapse History of CVA (cerebrovascular accident) (07/2017) Vertigo Depression History of TIA (transient ischemic attack) Meniere disease History of asthma Home Medications ???Medication ???Instructions ???Recorded ???Last Taken ???Type aspir (more content not included)... Normal [facility] Cytology, Body Fluid / CSFon 06-15-2025 CYTOLOGY,BF/CSF SEE PATHOLOGY REPORT Normal [facility] Comment on above: Order Comment: Comme nts: CATH'D URINE FOR CYTOLOGY Result Comment: Spec imen submitted to Anatomical Pathology Department for testing. Performed By: #### L 350.1000 #### [facility] [address] [place], [address] Discharge Instructionon 05-27 Discharge Instruction [facility] Medical Records Department [address] [place] [address] Instructions for Home/Discharge Instructions 06/13/25 1655 MR#: [id number] Acct: [id number] Name: ALLIE MARIE Rep #: [id number] : 1935 89 From: Akhil Leslie MD PCP: Dr. Angel Juan MD Status:REG SDC Discharge Instructions DC O2, CPAP, BIPAP needs Home O2 Discharge instructions: No Dressing / Incision Discharge Activity: Return to Normal Activity and No Restrictions Dressing / Incision Call your doctor if you observe: Fever of 101 or Higher and Uncontrolled pain Follow Up Care Please Follow Up With: Akhil Leslie MD When: Call [phone] for an appointment Test Results: Test results from this visit will be discussed in further detail at your follow-up appointment, if applicable. Discharge Plan Admission Primary Reason for Your Visit: bleeding from right kidney Attending Provider: Akhil Leslie Primary Care Provider: Angel Juan Instructions Print Language: Mongolian Discharge Orders/Prescriptions Prescriptions: New ibuprofen 400 mg tablet 400 mg PO Q6H PRN (Reason: pain) Qty: 14 0RF ciprofloxacin HCl 500 mg tablet 500 mg PO BID Qty: 10 0RF Continued metoprolol succinate 100 mg tablet extended release 24 hr 100 mg PO DAILY levothyroxine 25 mcg tablet 25 mcg PO DAILY rosuvastatin 40 mg tablet 40 mg PO DAILY losartan 50 mg tablet 50 mg PO DAILY Qty: 90 3RF Held clopidogrel 75 MG tablet 75 mg PO DAILY Hold Instructions: Resume on 06/27/25. aspirin 81 MG tablet,chewable 81 mg PO DAILY@0800 Hold Instructions: Resume on 06/27/25. Referrals / Follow Up: Angel Juan MD [Primary Care Provider] - Akhil Leslie MD [Med Staff - Active Staff] - Disposition Disposition (needs filled in before D/C Order can be placed): Home, Self Care 06/13/25 2806 Akhil Leslie MD CC: Dr. Angel Juan MD Signed [facility] MR/POSTOP.Isaias 06-13-2025 MR/POSTOP.[facility] Medical Records Department [address] [place] [address] Anesthesia Postop Eval I 06/13/25 1731 MR#: [id number] Acct: [id number] Name: FRANKALLIE A Rep #: [id number] : 1935 89 From: Bam Pride LIE DETECTOR OPERATOR PCP: Dr. Angel Juan MD Status:REG SDC Y Race: C Location: [place] [address] Anesthesia: Postop Eval I Current Vital Signs Temperature: 36 F Pulse Rate: 75 Blood Pressure: 96/44 Respiratory Rate: 14 Pulse Ox: 96 Assessment Airway patent: Yes Spontaneous unlabored respirations: Yes nausea: No Vomiting: No Anesthesia Complication: No Fluid Hydration Crystalloid volume administer (ml): 500 Total IV fluid infused: 500 Progress Note Anesthesia document: Postop Eval 1 completed: Yes 06/13/251730 Date Bam Pride LIE DETECTOR OPERATOR Cosigner Signature: Date CC: Signed Normal [facility] MR/[id number] 06-13-2025 [facility] Medical Records Department [address] [place] [address] Anesthesia Postop Eval II 06/13/251919 MR#: [id number] Acct: [id number] Name: ALLIE MARIE Rep #: [id number] : 1935 89 From: Viet Srinivasan MD PCP: Dr. Angel Juan MD Status:REG [facility] [place] Race: C Location: [place] [address] Anesthesia Postop Eval I Sum Postop Eval Completion status Anesthesia document: Postop Eval 1 completed: Yes Anesthesia Postop Eval I Summary Anesthesia Postop Eval I Summary: Anesthesia Postop Eval I: Assessment Summary Airway patent Yes 06/13/25 17:31 LIE DETECTOR OPERATOR.JYUN Spontaneous unlabored Yes 06/13/25 17:31 LIE DETECTOR OPERATOR.JYUN respirations Mental status nausea No 06/13/25 17:31 LIE DETECTOR OPERATOR.JYUN Vomiting No 06/13/25 17:31 LIE DETECTOR OPERATOR.JYUN Anesthesia Postop Eval I: Fluid Summary Crystalloid volume administer 500 06/13/25 17:31 LIE DETECTOR OPERATOR.AlbaYUN (ml) Colloids volume administered ( ml) Blood Product volume administered (ml) Total IV fluid infused 500 06/13/25 17:31 LIE DETECTOR OPERATOR.JYUN Anesthesia Postop Eval I: Summary Notes Anesthesia Complication No 06/13/25 17:31 LIE DETECTOR OPERATOR.JYUN Anesthesia Complication Comment: Post-operative progress note Anesthesia: Postop Eval II Evaluation Mental status: Awake and Calm Pain Level: 1 nausea: No Vomiting: No Complications Anesthesia Complication: No 06/13/25 1921 Date Viet Vidal Signature: Date CC: Signed Normal [facility] Operative Reporton Operative Report [facility] Medical Records Department [address] [place] [address] Operative Report 06/13/25 1723 MR#: [id number] Acct: [id number] Name: ALLIE MARIE Rep #: [id number] : 1935 89 From: Akhil Leslie MD PCP: Dr. 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: No Type of Anesthesia: General RN Documented Start/Stop Times: Operation Date: 06/13/25 16:30 Case Time Into Pre-Op 06/13/25 14:40 Procedure Start Time: 17:03 Procedure Stop Time: 17:24 Select all DRAINS/GRAFTS/IMPLANT S that apply: None Estimated Blood Loss: 2cc Specimen collected: Yes Description of specimen(s) removed: Urine for cytology and biopsy of renal mass and right renal pelvis Description of surgery: This is an 89-year-old female who presented to my office with gross hematuria CT scan was done that demonstrated that there was blood coming from the right renal pelvic area in the right kidney so put on the schedule today for a cystoscopy and diagnostic retrograde pyelogram and ureteroscopy possible biopsy I suspect there might be a malignancy. Patient was taken back to the operating room after smooth induction of anesthesia she was placed in dorsolithotomy position urethrovaginal area prepped and draped in usual fashion went in the bladder with a 21 British rigid cystourethroscope the bladder was normal there was blood inside the bladder but no tumors or stones within the bladder and urethra normal left and right ureter ureters were normal I then watched the ureters and there was bloody urine effluxing from the right ureteral orifice and cannulated the right ureteral orifice with a Pollick catheter we performed a retrograde pyelogram the ureter was smooth all the way up into the kidney and then there appeared to be a filling defect in the renal pelvis and the right side I then put a wire up into the right kidney and over the wire went in with a flexible ureteroscope was able to get up into the right kidney and saw that there was a mass that was filling the right renal pelvis 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 We then performed another retrograde pyelogram and again could see the filling defect more clearly and then using a tipless basket a biopsy of the mass was taken we also sent got urine and the urine was sent for cytology and then I worked my way down the ureter I taken the mass and the mass was sent off as a specimen. We then remove the ureteroscope no stent was placed I will have her stop her aspirin or Plavix and whether get her set up for nephro ureterectomy on the right side to treat and remove this cancerous mass. Surgical Findings: Large right renal pelvic mass appeared to be TCC bleeding Complications Complications: No Admit VTE Documentation VTE Present on Admission: No VTE Mechan Device Prophylaxis: SCD's VTE Pharm Prophylaxis ordered?: No 06/13/25 0042 Cosigner Signature (if applicable): CC: Dr. Angel Juan MD; Dr. Akhil Leslie MD Signed Normal [facility] Special Stain Group IIon Special Stain Group II ---- -------- Patient Age/Sex Location Account Attending Physician -------- ALLIE MARIE 89/F [facility] [id number] Dr. Akhil Leslie MD -------- Specimen: [id number] Received: 06/13/25 Status: IRA Miguel Num: [id number] Spec Type: Fluid Subm Dr: Dr. Akhil Leslie MD HEADER OPERATION: Ureteroscopy, retrograde pyelogram PRE-OP DIAGNOSIS: Hemorrhaging from right kidney, right renal pelvic mass TISSUE SUBMITTED: A- Urine for cytology - collected in OR -------- DIAGNOSIS CYTOLOGY A. Urine (cytospin), non-voided: - Atypical cells. COMMENT See report for additional specimen : [id number]. CYTOLOGY STUDY Slides are reviewed. CYTOLOGY GROSS A. Received is 20 ml of pink-cloudy fluid labeled with the patient's name and and designated per the requisition as urine. Submitted for cytology preparation. 06/16/2025 CPT: 48563 Signed (signature on file) Dr. Mamie Monsalve MD 06/18/25 1550 -------- Normal [facility] Comment on above: Performed By: #### L 500.4050, L506.0400, L501.9520, L501.5200, L501.40437, L501.4021, L100.0100 #### [facility] Laboratory [facility] [place] [address] [address], [address] Surgery Specimen Level Joan 06-13-2025 Surgery Specimen Level IV -------- Patient Age/Sex Location Account Attending Physician -------- ALLIE MARIE[place] [facility] [id number] Dr. Akhil Leslie MD -------- Specimen: [id number] Received: 06/13/25 Status: IRA Rivera Num: [id number] Spec Type: Mass Subm Dr: Dr. Akhil Leslie MD HEADER OPERATION: Ureteroscopy, retrograde pyelogram, biopsy right renal PRE-OP DIAGNOSIS: Hemorrhaging from right kidney, right renal pelvic mass TISSUE SUBMITTED: A- Biopsy of right ureteral mass -------- MICROSCOPIC DIAGNOSIS A. 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 - Lamina propria not identified. - Muscularis propria not identified. COMMENT See report for additional specimen: [id number] Selected slides/images were reviewed in intradepartmental consultation by Dr Julee Lancaster ( pathology division, [facility]). MICROSCOPIC DESCRIPTION Slides are reviewed. GROSS DESCRIPTION A. Received in formalin labeled with the patient's name and date of . Designated as BX RT renal pelvic mass is a 0.9 x 0.7 x 0.2 cm pale schafer friable and somewhat papilliferous tissue fragment a blue metallic, pronged surgical device. A definitive resection margin is unable to be determined. The specimen fragmented into numerous pieces upon removal of the surgical device. Entirely submitted in 1 cassette. *Note: The specimen requisition designates the specimen as biopsy of right ureteral mass all the specimen container is designated as BX RT renal pelvic mass (SC). SC 06/16/2025 CPT:38763 -------- Patient Age/Sex Location Account Attending Physician -------- ALLIE MARIE 89/[place] [facility] [id number] Dr. Akhil Leslie MD -------- Signed (signature on file) Dr. Mamie Monsalve MD 06/23/25 [address] -------- [facility] Comment on above: Performed By: #### L 500.4050, L506.0400, L501.9520, L501.5200, L501.41237, L501.4021, L100.0100 #### [facility] Laboratory [address] [place], [address] Abdomen/Pelvis without Conto n 06-12-2025 Abdomen/Pelvis without Cont [facility] Imaging Services [address] [place] [address] Abdomen/Pelvis without Cont MR#: [id number] Acct: [id number] Name: ALLIE MARIE Rep #: [id number] : 1935 F 89 From: Pravin root MD PCP: Dr. May Avitia MD Status: REG CLI Study: Abdomen/Pelvis without Cont Date of Exam: 05/27 06/20 Exam# [id number] Ordering Dr: Akhil Leslie MD PROCEDURE: ABDOMEN/PELVIS WITHOUT CONT 06/12/2025 REASON FOR EXAM: GROSS HEMATURIA TECHNIQUE: ABDOMEN/PELVIS WITHOUT CONT Noncontrast technique limits evaluation of the abdominal and pelvic viscera. Coronal and Sagittal reconstruction series were provided. One or more dose reduction techniques were used (e.g., Automated exposure control, adjustment of the mA and/or kV according to patient size, use of iterative reconstruction technique). RADIATION DOSE SUMMARY: CTDlvol: 5.93 mGy DLP: 243.75 mGycm COMPARISON: None FINDINGS: Lung bases: Lung bases are clear. Coronary artery calcification. Liver: Normal size. No obvious mass. Gallbladder: Surgically absent. Spleen: Multiple calcified splenic granulomas. Pancreas: Diffuse fatty atrophy. Adrenals: Unremarkable Kidneys: Moderate degree of right hydronephrosis. Findings suggestive of right ureteropelvic junction obstruction. No calcified renal calculus is seen. Bladder: Unremarkable Reproductive Organs: Fibroid uterus. Bowel: Colonic diverticulosis without diverticulitis. Appendix: Prior appendectomy. Lymph nodes: Unremarkable. Vasculature: Mild diffuse atherosclerotic calcifications are noted. Peritoneum / Retroperitoneum: Unremarkable Bones: Degenerative changes of the spine. Levoconvex scoliosis. CT/Abdomen/Pelvis without Cont IMPRESSION: Right hydronephrosis. Possible right ureteropelvic junction obstruction. No renal calcification or ureteral calcification is seen. Reading Location: [facility] CC: Dr. May Avitia MD; Dr. Akhil Leslie MD Save All Operator: Signed Normal [facility] MR/PATMina 06-12-2025 MR/PAT.EUNICE [facility] Medical Records Department [address] [place] [address] PAT - Anesthesia 06/12/25 1635 MR#: [id number] Acct: [id number] Name: ALLIE MARIE Rep #: [id number] : 1935 89 From: Jean Paul Gross MD PCP: Dr. May Avitia MD Status:PRE [facility] [place] Race: C [place] [facility] Pre-Assessment Diagnosis/Proposed Procedure Planned Operative Procedure(s): RIGHT URETEROSCOPY BIOPSY STENT Anesthesia History Anesthesia History - harness tier: Anesthesia History - harness tier Hx Hospitalization Yes: SYNCOPE/SEVERE 06/12/25 16:21 DEHYDRATION AND UTI Any Problems With Anesthesia No 06/12/25 16:21 Cholinesterase deficiency No 06/12/25 16:21 You/Your Family Experience No 06/12/25 16:21 fever (hyperthermia) with Relationship Recent Exposure to Contagious No 02/24/14 08:46 Disease Does patient have nerve No 06/12/25 16:21 stimulator Patient instructed to have device shut off --Does patient have Pacemaker or ICD? When Was Last Pacemaker Check QUESTION #4 FULL TEXT: You/Your Family Experience fever (hyperthermia) with Anesthesia Last Oral Intake Last Oral intake: Last Oral Intake NPO since Meds taken in AM with sips of water? Meds patient instructed to take am of surgery PONV PONV - harness tier: PONV - harness tier Female Yes 06/12/25 16:21 HX of Motion Sickness No 06/12/25 16:21 HX of N/V After Surgery No 06/12/25 16:21 Non-Smoker Yes 06/12/25 16:21 Duration of Surgery greater No 06/12/25 16:21 than 60 minutes Number of Risk Factors 2 06/12/25 16:21 PONV Score Moderate Risk 06/12/25 16:21 Height Weight Height Weight: Anesthesia: Height Weight Height 5 ft 2 in 04/14/25 10:17 Respiratory Assessment Respiratory Assessment - harness tier: Respiratory Tract Infection Hx - harness tier Hx Respiratory Tract Infection No 06/12/25 16:21 STOP Sleep Apnea STOP Sleep Apnea - harness tier: STOP Sleep Apnea - harness tier Hx Hypertension Yes: CONTROLLED WITH MEDS 06/12/25 16:21 Hx Sleep Apnea No 06/12/25 16:21 CPAP No 04/13/25 20:06 BIPAP No 04/13/25 20:06 Do you snore loudly (louder No 06/12/25 16:21 than talking or can be heard Do you often feel tired/ Yes 06/12/25 16:21 fatigued/ sleepy during daytime? Has anyone observed you stop No 06/12/25 16:21 breathing during sleep? STOP Results Positive 06/12/25 16:21 QUESTION #5 FULL TEXT : Do you snore loudly (louder than talking or can be heard through closed doors)? 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 confused, unrespo /Reproductio n History /Reproductiv e History - harness tier: /Reproductiv e Hx- harness tier Hx Now No 06/12/25 16:21 Gestational Age (in weeks): EDC: Hx Hx Para Hx Section SAB No 06/12/25 16:21 [facility] Medical History (Updated 06/12/25 @ 16:31 by Gogo Baker) Wears glasses Open wound Thyroid disease Walker as ambulation aid Ambulates with cane Arthritis DVT (deep venous thrombosis) High cholesterol History of ulceration Non-smoker Shortness of breath on exertion History of echocardiogram Cardiology follow-up encounter UTI (urinary tract infection) Generalized weakness Essential (primary) hypertension Stenosis of right vertebral artery Obstructive hypertrophic cardiomyopathy Syncope and collapse History of CVA (cerebrovascular accident) (07/2017) Vertigo Depression History of TIA (transient ischemic attack) Meniere disease History of asthma Home Medications ???Medication ???Instructions ???Recorded ???Last Taken ???Type aspirin 81 mg chew (more content not included)... Normal [facility] TSH DL <= 0.005 mIU/L QnOrde red By: Boubacar Brysonorrow on 05-28-2025 TSH Qn 6.240 uIU/mL High 0.300-4.200 [facility] Thyroid Stim Hormone (TSH)on 05-28-2025 TSH 6.240 uIU/mL High 0.300-4.200 [facility] Comment on above: Order Comment: Order Date: 05/28/25Order Info: [id number] - TSH Performed By: #### L 500.4050, L506.0400, L501.9520, L501.5200, L501.49586, L501.4021, L100.0100 #### [facility] Laboratory [facility] [place], [address] Urine Cultureon 04-15-2025 URC Escherichia coli Dos Rios Count >100,000 Escherichia coli: REACTION Ampicillin Islt KIRAN <=2 Ampicillin+Sulbac Islt KIRAN <=2 S Cefepime Islt KIRAN <=0.12 S cefTRIAXone Islt KIRAN <=0.25 S Ciprofloxacin Islt KIRAN <=0.06 S B-Lactamase Extended Susc Islt NEG Gentamicin Islt KIRAN <=1 S levoFLOXacin Islt KIRAN <=0.12 S Meropenem Islt KIRAN <=0.25 S Nitrofurantoin Islt KIRAN <=16 S Pip+Tazo Islt KIRAN <=4 S TMP SMX Islt KIRAN <=20 S Normal [facility] Comment on above: Performed By: #### L 500.4050, L506.0400, L501.9520, L501.5200, L501.39726, L501.4021, L100.0100 #### [facility] Laboratory [address] [place], [place], [id number] Absolute lymphocyte countOrd ered By: Lilia Tom on 04-14-2025 Lymphocytes Auto (Unsp spec) [#/Vol] 2.06 10*3/uL 0.83-4.51 [facility] Absolute neutrophil countOrd ered By: [facility] Vaishali on 04-14-2025 Neutrophils (Bld) [#/Vol] 4.0 10*3/uL 2.0-7.7 [facility] Anion gap in Serum or Plasma Ordered By: Lilia Tom on 04-14-2025 Anion gap [Moles/Vol] 8 mmol/L 5-15 [facility] Automated blood erythrocyte countOrdered By: [facility] Vaishali on 04-14-2025 RBC (Bld) [#/Vol] 3.03 10*6/uL Low 4.2-5.4 [facility] Comment on above: Performed By: #### L 100.0100, L500.4050, L500.4100 #### [facility] Laboratory [address] [place], [place], [id number] Automated blood hematocrit ( percentage)Ordered By: Lilia Tom on 04-14-2025 Hematocrit (Bld) [Volume fraction] 28.5 % Low 37-47 [facility] Comment on above: Performed By: #### L 100.0100, L500.4050, L500.4100 #### [facility] Laboratory [address] [place], [place], [id number] Automated lymphocyte count a s percentage of total leukocytesOrdered By: Lilia Tom on 04-14-2025 Lymphocytes/100 WBC Auto (Unsp spec) 28.9 % 19-41 [facility] BUN/creatinine ratioOrdered By: Lilia Tom on 04-14-2025 Urea nitrogen/Creatinine [Mass ratio] 18.5 mg/mg 10-20 [facility] Basophil percentageOrdered B y: Lilia Tom on 04-14-2025 Basophils/100 WBC (Bld) 0.6 % Normal 0-1 [facility] Comment on above: Performed By: #### L 100.0100, L500.4050, L500.4100 #### [facility] Laboratory [address] [place], [address] Bilirubin, totalOrdered By: Lilia Tom on 04-14-2025 Bilirubin [Mass/Vol] 0.47 mg/dL 0.00-1.30 [facility] CBC W/Diff, Automatedon 03-27 Absolute Lymph 2.06 X10 3/uL Normal 0.83-4.51 [facility] Comment on above: Performed By: #### L 100.0100, L500.4050, L500.4100 #### [facility] Laboratory [address] [place], [address] Absolute Neut 4.0 X10 3/uL Normal 2.0-7.7 [facility] Comment on above: Performed By: #### L 100.0100, L500.4050, L500.4100 #### [facility] Laboratory [address] [place], [address] IG% 0.600 Normal 0.0-0.9 [facility] Comment on above: Result Comment: IG% - Immature Granulocytes (promyelocytes, myelocytes and metamyelocytes) > 1% indicates that a LEFT SHIFT is Present. Performed By: #### L 100.0100, L500.4050, L500.4100 #### [facility] Laboratory [address] [place], [address] Lymphocytes/100 WBC (Bld) 28.9 % Normal 19-41 [facility] Comment on above: Performed By: #### L 100.0100, L500.4050, L500.4100 #### [facility] Laboratory [address] [place], [address] Nucleated RBC (Bld) [#/Vol] 0 10*3/uL Normal 0-5 [facility] Comment on above: Performed By: #### L 100.0100, L500.4050, L500.4100 #### [facility] Laboratory [address] [place], [address] RDW SD 45.0 fl High 35.1-43.9 [facility] Comment on above: Performed By: #### L 100.0100, L500.4050, L500.4100 #### [facility] Laboratory [address] [place], [address] Calculated very low density lipoprotein (VLDL) cholesterol measurementOrdered By: Lilia Tom on 04-14-2025 Calculated very low density lipoprotein (VLDL) cholesterol measurement 23 mg/dL 5-40 [facility] Carbon dioxide, total [Moles /volume] in Central venous bloodOrdered By: Lilia Tom on 04-14-2025 CO2 [Moles/Vol] 17.9 mmol/L Low 21.0-32.0 [facility] Chloride assayOrdered By: Ginna Tom on 04-14-2025 Chloride [Moles/Vol] 116 mmol/L High 98-108 [facility] Comprehensive Metabolic Prof ilon 04-14-2025 Albumin [Mass/Vol] 3.1 g/dL Low 3.4-4.8 [facility] Comment on above: Performed By: #### L 500.4050, L506.0400, L501.9520, L501.5200, L501.21755, L501.4021, L100.0100 #### [facility] Laboratory [address] [place], [address] Albumin/Globulin [Mass ratio] 1.6 {ratio} Normal 0.9-2.4 [facility] Comment on above: Performed By: #### L 500.4050, L506.0400, L501.9520, L501.5200, L501.55146, L501.4021, L100.0100 #### [facility] [address] [place], [address] ALK PHOS 42 U/L Normal 35-104 [facility] Comment on above: Performed By: #### L 500.4050, L506.0400, L501.9520, L501.5200, L501.68482, L501.4021, L100.0100 #### [facility] [address] [place], [address] ALT [Catalytic activity/Vol] 102 U/L High <=34 [facility] Comment on above: Performed By: #### L 500.4050, L506.0400, L501.9520, L501.5200, L501.11221, L501.4021, L100.0100 #### [facility] [address] [place], [address] AST [Catalytic activity/Vol] 138 U/L High <=31 [facility] Comment on above: Performed By: #### L 500.4050, L506.0400, L501.9520, L501.5200, L501.35011, L501.4021, L100.0100 #### [facility] [address] [place], [address] Bilirubin [Mass/Vol] 0.47 mg/dL Normal 0.00-1.30 [facility] Comment on above: Performed By: #### L 500.4050, L506.0400, L501.9520, L501.5200, L501.50701, L501.4021, L100.0100 #### [facility] [address] [place], [address] BUN/CRE 18.5 RATIO Normal 10-20 [facility] Comment on above: Performed By: #### L 500.4050, L506.0400, L501.9520, L501.5200, L501.98442, L501.4021, L100.0100 #### [facility] [address] [place], [address] Calcium [Mass/Vol] 8.6 mg/dL Normal 7.6-11.0 [facility] Comment on above: Performed By: #### L 500.4050, L506.0400, L501.9520, L501.5200, L501.14661, L501.4021, L100.0100 #### [facility] [address] [place], [address] Chloride [Moles/Vol] 116 mmol/L High 98-108 [facility] Comment on above: Performed By: #### L 500.4050, L506.0400, L501.9520, L501.5200, L501.16450, L501.4021, L100.0100 #### [facility] [address] [place], [address] CO2 [Moles/Vol] 17.9 mmol/L Low 21.0-32.0 [facility] Comment on above: Performed By: #### L 500.4050, L506.0400, L501.9520, L501.5200, L501.44964, L501.4021, L100.0100 #### [facility] [address] [place], [address] Creatinine [Mass/Vol] 1.36 mg/dL High 0.70-1.20 [facility] Comment on above: Performed By: #### L 500.4050, L506.0400, L501.9520, L501.5200, L501.30692, L501.4021, L100.0100 #### [facility] [address] [place], [address] ECRCL 23.05 ml/min Low 50-250 [facility] Comment on above: Performed By: #### L 500.4050, L506.0400, L501.9520, L501.5200, L501.88517, L501.4021, L100.0100 #### [facility] [address] [place], [address] GAP 8 Normal 5-15 [facility] Comment on above: Performed By: #### L 500.4050, L506.0400, L501.9520, L501.5200, L501.52000, L501.4021, L100.0100 #### [facility] [address] [place], [address] GFR/1.73 sq M.predicted among non-blacks MDRD (S/P/Bld) [Vol rate/Area] 38 mL/min/{1.73_m2} Low >60 [facility] Comment on above: Result Comment: mL/m in/1.73m2 CKD-EPI Creatinine Equation (2020) Performed By: #### L 500.4050, L506.0400, L501.9520, L501.5200, L501.08509, L501.4021, L100.0100 #### [facility] [address] [place], [address] Globulin (S) [Mass/Vol] 2.0 g/dL Low 2.2-4.2 [facility] Comment on above: Performed By: #### L 500.4050, L506.0400, L501.9520, L501.5200, L501.60177, L501.4021, L100.0100 #### [facility] [address] [place], [address] Glucose [Mass/Vol] 91 mg/dL Normal 70-99 [facility] Comment on above: Performed By: #### L 500.4050, L506.0400, L501.9520, L501.5200, L501.32751, L501.4021, L100.0100 #### [facility] [address] [place], [address] Potassium [Moles/Vol] 4.3 mmol/L Normal 3.3-5.1 [facility] Comment on above: Performed By: #### L 500.4050, L506.0400, L501.9520, L501.5200, L501.72137, L501.4021, L100.0100 #### [facility] [address] [place], [address] Sodium [Moles/Vol] 142 mmol/L Normal 133-145 [facility] Comment on above: Performed By: #### L 500.4050, L506.0400, L501.9520, L501.5200, L501.50743, L501.4021, L100.0100 #### [facility] [address] [place], [address] T PROT 5.1 g/dL Low 5.9-8.4 [facility] Comment on above: Performed By: #### L 500.4050, L506.0400, L501.9520, L501.5200, L501.07940, L501.4021, L100.0100 #### [facility] [address] [place], [address] Urea nitrogen [Mass/Vol] 25 mg/dL High 4-19 [facility] Comment on above: Performed By: #### L 500.4050, L506.0400, L501.9520, L501.5200, L501.93959, L501.4021, L100.0100 #### [facility] [address] [place], [address] Discharge Instructionon 05 Discharge Instruction [facility] Medical Records Department [address] [place] [address] Instructions for Home/Discharge Instructions 04/14/25 1536 MR#: [id number] Acct: [id number] Name: ALLIE MARIE Rep #: [id number] : 1935 89 From: Ken Parker DO PCP: Dr. May Avitia MD Status:ADM IN Discharge Instructions Diet Discharge Diet: No restrictions DC O2, CPAP, BIPAP needs Home O2 Discharge instructions: No Dressing / Incision Discharge Activity: Return to Normal Activity and Use Walker Weight Bearing Status: Full weight bearing Follow Up Care Test Results: Test results from this visit will be discussed in further detail at your follow-up appointment, if applicable. Discharge Plan Admission Admit Date/Time: 04/13/25 18:44 Primary Reason for Your Visit: Acute cystitis, acute debility Attending Provider: Ken Parker Primary Care Provider: May Avitia Consulting Providers: Lilia Tom Discharge Orders/Prescriptions Prescriptions: New cefdinir 300 mg capsule 300 mg PO BID Qty: 14 0RF Rx Instructions: Start on 04/15/2025 Continued clopidogrel 75 MG tablet 75 mg PO DAILY aspirin 81 MG tablet,chewable 81 mg PO DAILY@0800 metoprolol succinate 100 mg tablet extended release 24 hr 100 mg PO DAILY levothyroxine 25 mcg tablet 25 mcg PO DAILY rosuvastatin 40 mg tablet 40 mg PO DAILY losartan 50 mg tablet 50 mg PO DAILY Qty: 90 3RF Referrals / Follow Up: May Avitia MD [Primary Care Provider] - Within 2 Weeks Disposition Disposition (needs filled in before D/C Order can be placed): Home Health Service 04/14/25 1546 Ken Parker DO CC: Dr. May Avitia MD; Dr. Lilia Tom MD Signed ADDENDUM by Dr. Ken Parker DO on 04/15/25 at 1042 Date of discharge 04/15/25 04/15/25 1042 Ken Parker DO cc: Dr. May Avitia MD; Dr. Lilia Tom MD * Signed Normal [facility] Echocardiogram study reportO rdered By: Philip Martinez on 04-14-2025 Study report [facility] [address] [place] [address] Echo Complete 04/14/25 1520 MR#: [id number] Acct: [id number] Name: ALLIE MARIE Rep #:[id number] : 1935 89 From: Philip Lan Attending Dr: Dr. Ken Parker, DO Status: ADM IN Ordering Dr: Lilia Tom MD Date: 04/13/25 Location: [facility] Sex: F C Admitted: 04/13/25 Reason For Study Reason For Study: HOCM Procedure This was a 2D Doppler, Color Flow transthoracic echocardiogram. Exam performed portable in patient room. Left Ventricle Normal LV size. Severe eccentric left ventricular hypertrophy. The left ventricular ejection fraction is 75 %. Resting LV gradient 132 mmHg. Stage 1 diastolic dysfunction. No regional wall motion abnormalities noted. Right Ventricle Normal RV size. Normal systolic function. Atria Normal left atrium. Normal right atrium. Mitral Valve There is mild mitral annular calcification. Systolic anterior motion of the mitral valve. Mild-Moderate (1-2+) eccentric mitral valve insufficiency. Tricuspid Valve Normal tricuspid valve. Mild (1+) tricuspid valve insufficiency. Pulmonary artery systolic pressure is 32 mmHg. Aortic Valve Trisinus/trileaflet aortic valve. Pulmonic Valve Normal pulmonic valve. Great Vessels Mildly calcified aortic root. The pulmonary artery is normal size. Inferior venacava collapse with respiration. Pericardium/Pleural No pericardial effusion. MMode/2D Measurements & Calculations LVIDd: 3.3 cm IVSd: 1.5 cm LVOT diam: 1.9 cm LVIDs: 2.1 cm LVPWd: 0.90 cm LVOT area: 2.9 cm2 RVDd: 3.2 cm FS: 37.6 % Ao root diam: 2.5 cm LAV(MOD-bp): 42.9 ml LVAd ap4: 16.1 cm2 LAV(MOD-bp) Indexed: 28.4 ml/m2 LVLd ap4: 6.6 cm LAV(MOD-sp2): 36.9 ml EDV(MOD-sp4): 32.5 ml LAV(MOD-sp4): 45.4 ml EDV(sp4-el): 33.1 ml LVAs ap4: 6.6 cm2 LVLs ap4: 5.9 cm ESV(MOD-sp4): 6.8 ml ESV(sp4-el): 6.3 ml EF(MOD-sp4): 79.0 % EF(sp4-el): 81.0 % LVAd ap2: 16.4 cm2 SV(MOD-sp4): 25.7 ml SV(MOD-sp2): 22.1 ml LVLd ap2: 6.9 cm SI(MOD-sp4): 17.0 ml/m2 SI(MOD-sp2): 14.6 ml/m2 EDV(MOD-sp2): 32.7 ml EDV(sp2-el): 33.3 ml LVAs ap2: 8.3 cm2 LVLs ap2: 6.1 cm ESV(MOD-sp2): 10.6 ml ESV(sp2-el): 9.6 ml EF(MOD-sp2): 67.6 % SV(sp4-el): 26.9 ml LA dimension(2D): 3.5 cm LA A4 area: 18.8 cm2 RA A4 area: 12.1 cm2 TAPSE: 2.0 cm Time Measurements MV dec time: 0.46 sec Doppler Measurements & Calculations MV E max abner: 128.2 cm/sec Lat Peak E' Abner: 4.9 cm/sec Med Peak E' Abner: 4.4 cm/sec MV A max abner: 154.0 cm/sec E/E' lat: 25.9 E/E' med: 29.4 MV E/A: 0.83 MV V2 max: 164.8 cm/sec MV P1/2t max abner: 139.8 cm/sec Ao V2 max: 223.4 cm/sec MV max P.9 mmHg MV P1/2t: 121.6 msec Ao max P.0 mmHg MV V2 mean: 111.0 cm/sec Ao V2 mean: 159.8 cm/sec MV mean P.3 mmHg MV dec slope: 336.7 cm/sec2 Ao mean P.0 mmHg MV V2 VTI: 40.5 cm MVA(P1/2t): 1.8 cm2 Ao V2 VTI: 45.6 cm PA V2 max: 101.4 cm/sec TR max abner: 267.6 cm/sec TR max P.6 mmHg ECHO/Echo Complete Interpretation Summary Normal LV size. Severe eccentric left ventricular hypertrophy. Resting LV gradient 132 mmHg. Stage 1 diastolic dysfunction. The left ventricular ejection fraction is 75 %.+ Ordering Physician: Lilia Tom Referring Physician: May Avitia M.D. Performed By: Amira Sky RDCS 04/14/25 1642 Date _ Philip Martinez MD CC: Dr. May Avitia MD; Dr. Lilia Tom MD; Dr. Ken Parker DO ~ Date Dictated: 04/14/25 1520 Date Transcribed: 04/14/25 164 Save All Operator: Signed [facility] Work Phone: Electrocardiogram reportOrde red By: Philip Martinez on 04-14-2025 EKG study [facility] [address] [place] [address] 12 Lead EKG 04/13/25 1621 MR#: [id number] Acct: [id number] Name: ALLIE MARIE Rep #:[id number] : 1935 89 From: Philip Martinez MD Attending Dr: Dr. Ken Parker DO Status: ADM IN Ordering Dr: Ant Vale ate: 04/13/25 Location: [facility] Sex: F C Admitted: 04/13/25 Test Reason : Blood Pressure : */* mmHG Vent. Rate : 67 BPM Atrial Rate : 67 BPM P-R Int : 222 ms QRS Dur : 110 ms QT Int : 466 ms P-R-T Axes : 32 49 34 degrees QTcB Int : 492 ms Sinus rhythm with 1st degree A-V block Right bundle branch block Abnormal ECG Confirmed by JUAN DAILY, PHILIP ([id number]), editor dictionary AYALA PARSONS ([id number]) on 04/14/2025 9:27:32 AM Referred By: Confirmed By: PHILIP MARTINEZ MD 04/14/25926 _ Philip Martinez MD CC: Dr. May Avitia MD; Dr. Ant Vale DO; Dr. Ken Parker DO ~ Signed [facility] Work Phone: Eosinophil percentageOrdered By: White on 04-14-2025 Eosinophils/100 WBC (Bld) 2.5 % Normal 0-5 [facility] Comment on above: Performed By: #### L 100.0100, L500.4050, L500.4100 #### [facility] [address] [place], [place], [id number] Erythrocyte distribution wid th ratioOrdered By: White on 04-14-2025 Erythrocyte distribution width (RBC) [Ratio] 13.1 % Normal 11.6-14.6 [facility] Comment on above: Performed By: #### L 100.0100, L500.4050, L500.4100 #### [facility] [address] [place], [address] Erythrocyte distribution wid th standard deviationOrdered By: White on 04-14-2025 Erythrocyte distribution width (RBC) [Ratio] 45.0 fl High 35.1-43.9 [facility] Glomerular filtration rate ( GFR) estimation/1.73 sq m using serum, plasma, or whole bOrdered By: Lilia Tom on 04-14-2025 GFR/1.73 sq M.predicted among non-blacks MDRD (S/P/Bld) [Vol rate/Area] 38 mL/min/{1.73_m2} Low >60 [facility] Comment on above: mL/min/1.73m2 CKD-EP I Creatinine Equation (2020) Hemoglobin measurementOrdere d By: Lilia Tom on 04-14-2025 Hemoglobin (Bld) [Mass/Vol] 9.4 g/dL Low 12.0-15.0 [facility] Comment on above: Performed By: #### L 100.0100, L500.4050, L500.4100 #### [facility] [address] [facility] [place], [place], [phone] ([phone]) Immature granulocytes/100 WB C Auto (Bld)Ordered By: Lilia Tom on 04-14-2025 Immature granulocytes/100 WBC (Bld) 0.600 % 0.0-0.9 [facility] Comment on above: IG% - Immature Granu locytes (promyelocytes, myelocytes and metamyelocytes) > 1% indicates that a LEFT SHIFT is Present. LDL calc ser/plasOrdered By: Lilia Tom on 04-14-2025 Cholesterol in LDL [Mass/Vol] 33 mg/dL [facility] Comment on above: Zvdzwrzizf=230-822 m g/dL & Higher Vysj=543 mg/dL or greater Laboratory - Chemistry and C hemistry - challengeOrdered By: Lilia Tom on 04-14-2025 AST [Catalytic activity/Vol] 138 U/L High <32 [facility] Lipid Profileon 04-14-2025 CHOL:HDL 3.01 Normal [facility] Comment on above: Performed By: #### L 500.4050, L506.0400, L501.9520, L501.5200, L501.23358, L501.4021, L100.0100 #### [facility] [address] [place], [place], [phone] ([phone]) Cholesterol [Mass/Vol] 84 mg/dL Normal <=200 [facility] Comment on above: Result Comment: Chol esterol level, Desirable <200 mg/dL Borderline high cholesterol 200-239 mg/dL High cholesterol >=240 mg/dL Recommendations of the NCEP Adult Treatment Panel for the following risk-cutoff thresholds for the [place] population. Performed By: #### L 500.4050, L506.0400, L501.9520, L501.5200, L501.19140, L501.4021, L100.0100 #### [facility] [address] [place], [address] Cholesterol in HDL [Mass/Vol] 28 mg/dL Low [facility] Comment on above: Result Comment: Jaci onal Cholesterol Education Program (NCEP) guidelines: <40 mg/dL: Low HDL-cholesterol (major risk factor for CHD) >= 60 mg/dL: High HDL-cholesterol (negative risk factor for CHD) HDL-cholesterol is affected by a number of factors, e.g. smoking, exercise, hormones, sex and age. Performed By: #### L 500.4050, L506.0400, L501.9520, L501.5200, L501.10266, L501.4021, L100.0100 #### [facility] [address] [place], [address] Cholesterol in LDL [Mass/Vol] 33 mg/dL Normal [facility] Comment on above: Result Comment: Bord dwnwan=421-491 mg/dL Higher Vrhj=768 mg/dL or greater Performed By: #### L 500.4050, L506.0400, L501.9520, L501.5200, L501.14380, L501.4021, L100.0100 #### [facility] [address] [place], [address] Cholesterol in VLDL [Mass/Vol] 23 mg/dL Normal 5-40 [facility] Comment on above: Performed By: #### L 500.4050, L506.0400, L501.9520, L501.5200, L501.89256, L501.4021, L100.0100 #### [facility] [address] [place], [address] Triglyceride [Mass/Vol] 115 mg/dL Normal [facility] Comment on above: Result Comment: The drugs N-Acetylcysteine and Metamizole may falsely depress this assay. Normal range: <150 mg/dL Borderline High: 150-199 mg/dL High: 200-499 mg/dL Very High: >500 mg/dL Performed By: #### L 500.4050, L506.0400, L501.9520, L501.5200, L501.91295, L501.4021, L100.0100 #### [facility] [address] [place], [address] MCV (mean corpuscular volume ) determinationOrdered By: Lilia Tom on 04-14-2025 MCV (RBC) [Entitic vol] 94.1 fL Normal 81-99 [facility] Comment on above: Performed By: #### L 100.0100, L500.4050, L500.4100 #### [facility] [address] [place], [address] Mean corpuscular hemoglobin (MCH) determinationOrdered By: Lilia Tom on 04-14-2025 MCH (RBC) [Entitic mass] 31.0 pg Normal 27.0-32.0 [facility] Comment on above: Performed By: #### L 100.0100, L500.4050, L500.4100 #### [facility] [address] [place], [address] Mean corpuscular hemoglobin concentration (MCHC) determinationOrdered By: Lilia Tom on 04-14-2025 MCHC (RBC) [Mass/Vol] 33.0 g/dL Normal 32-36 [facility] Comment on above: Performed By: #### L 100.0100, L500.4050, L500.4100 #### [facility] [address] [place], [address] Mean platelet volume determi nationOrdered By: Lilia Vaishali on 04-14-2025 Platelet mean volume (Bld) [Entitic vol] 9.5 fL Normal 6.2-12.0 [facility] Comment on above: Performed By: #### L 100.0100, L500.4050, L500.4100 #### [facility] [address] [place], [address] Monocyte percentageOrdered B y: Lilia Vaishali on 04-14-2025 Monocytes/100 WBC (Bld) 11.1 % High 0-10 [facility] Comment on above: Performed By: #### L 100.0100, L500.4050, L500.4100 #### [facility] [address] [place], [address] Neutrophil percentageOrdered By: Lilia Vaishali on 04-14-2025 Neutrophils/100 WBC (Bld) 56.3 % Normal 47-70 [facility] Comment on above: Performed By: #### L 100.0100, L500.4050, L500.4100 #### [facility] [address] [place], [address] Nucleated red blood cell per centageOrdered By: Lilia Tom on 04-14-2025 Nucleated RBC/100 WBC (Bld) [Ratio] 0 % 0-5 [facility] Platelet countOrdered By: Ginna Tom on 04-14-2025 Platelets (Bld) [#/Vol] 136 10*3/uL Low 150-450 [facility] Comment on above: Performed By: #### L 100.0100, L500.4050, L500.4100 #### [facility] [address] [place], [address] Potassium measurement (mass/ volume)Ordered By: Lilia Tom on 04-14-2025 Potassium (Unsp spec) [Mass/Vol] 4.3 mmol/L 3.3-5.1 [facility] Screening total cholesterol/ high density lipoprotein (HDL) cholesterol ratioOrdered By: Lilia Tom on 04-14-2025 Cholesterol.total/Gin sterol in HDL [Mass ratio] 3.01 {ratio} [facility] Serum creatinine measurement (mass/volume)Ordered By: Lilia Tom on 04-14-2025 Creatinine [Mass/Vol] 1.36 mg/dL High 0.70-1.20 [facility] Serum globulin measurementOr dered By: Lilia Tom on 04-14-2025 Globulin (S) [Mass/Vol] 2.0 g/dL Low 2.2-4.2 [facility] Serum glucose measurement (m ass/volume)Ordered By: Lilia Tom on 04-14-2025 Glucose [Mass/Vol] 91 mg/dL 70-99 [facility] Serum or plasma alanine mckeon otransferase (ALT) measurementOrdered By: Lilia Tom on 04-14-2025 ALT [Catalytic activity/Vol] 102 U/L High <35 [facility] Serum or plasma albumin jayy urement (mass/volume)Ordered By: Lilia Tom on 04-14-2025 Albumin [Mass/Vol] 3.1 g/dL Low 3.4-4.8 [facility] Serum or plasma albumin/glob ulin mass ratioOrdered By: Lilia Tom 04-14-2025 Albumin/Globulin [Mass ratio] 1.6 {ratio} 0.9-2.4 [facility] Serum or plasma alkaline kinga sphatase measurementOrdered By: Lilia Tom 04-14-2025 ALP [Catalytic activity/Vol] 42 U/L 35-104 [facility] Serum or plasma calcium jayy urement (mass/volume)Ordered By: Lilia Tom 04-14-2025 Calcium [Mass/Vol] 8.6 mg/dL 7.6-11.0 [facility] Serum or plasma cholesterol in HDL measurement (mass/volume)Ordered By: Lilia Tom on 04-14-2025 Cholesterol in HDL [Mass/Vol] 28 mg/dL Low >40 [facility] Comment on above: National Cholesterol Education Program (NCEP) guidelines:<40 mg/dL: Low HDL-cholesterol (major risk factor for CHD)>= 60 mg/dL: High HDL-cholesterol (negative risk factor for CHD)HDL-cholesterol is affected by a number of factors, e.g. smoking, exercise, hormones, sex and age. Serum or plasma cholesterol measurement (mass/volume)Ordered By: Lilia Tom on 04-14-2025 Cholesterol [Mass/Vol] 84 mg/dL <201 [facility] Comment on above: Cholesterol level, D esirable <200 mg/dLBorderline high cholesterol 200-239 mg/dLHigh cholesterol >=240 mg/dLRecommendations of the NCEP Adult Treatment Panel for the following risk-cutoff thresholds for the [place] population. Serum or plasma urea nitroge n measurement (mass/volume)Ordered By: Lilia Tom on 04-14-2025 Urea nitrogen [Mass/Vol] 25 mg/dL High - [facility] Sodium levelOrdered By: Yulia Tom on 04-14-2025 Sodium [Moles/Vol] 142 mmol/L 133-145 [facility] Total proteinOrdered By: Vaibhav Tom on 04-14-2025 Protein [Mass/Vol] 5.1 g/dL Low 5.9-8.4 [facility] Triglycerides measurementOrd ered By: Lilia Tom on 04-14-2025 Triglyceride [Mass/Vol] 115 mg/dL <199 [facility] Comment on above: The drugs N-Acetylcy steine and Metamizole may falsely depress this assay. Normal range: <150 mg/dLBorderline High: 150-199 mg/dLHigh: 200-499 mg/dLVery High: >500 mg/dL White blood cell (WBC) count Ordered By: Lilia Tom on 04-14-2025 WBC (Bld) [#/Vol] 7.1 10*3/uL Normal 4.4-11.0 [facility] Comment on above: Performed By: #### L 100.0100, L500.4050, L500.4100 #### [facility] [address] [place], [place], [id number] 12 Lead EKGon 04-13-2025 12 Lead EKG [facility] Cardi[facility] Services [address] [place] [address] 12 Lead EKG 04/13/25 1621 MR#: [id number] Acct: [id number] Name: ALLIE MARIE Rep #: [id number] : 1935 89 From: Philip Martinez MD Attending Dr: Dr. Ken Parker DO Status: A DM IN Ordering Dr: Ant Vale DO Date: 5 Location: [facility] Sex: F C Admitted: 04/13/25 Test Reason : Blood Pressure : */* mmHG Vent. Rate : 67 BPM Atrial Rate : 67 BPM P-R Int : 222 ms QRS Dur : 110 ms QT Int : 466 ms P-R-T Axes : 32 49 34 degrees QTcB Int : 492 ms Sinus rhythm with 1st degree A-V block Right bundle branch block Abnormal ECG Confirmed by PHILIP MARTINEZ MD ([id number]), editor dictionary AYALA PARSONS ([id number]) on 04/14/2025 9:27:32 AM Referred By: Confirmed By: PHILIP MARTINEZ MD 04/14/25926 Date Philip Martinez MD CC: Dr. May Avitia MD; Dr. Ant Vale DO; Dr. Ken Parker DO Signed Normal [facility] Absolute lymphocyte countOrd ered By: Miladis Sánchez on 04-13-2025 Lymphocytes Auto (Unsp spec) [#/Vol] 1.37 10*3/uL 0.83-4.51 [facility] Absolute neutrophil countOrd ered By: Miladis Sánchez on 04-13-2025 Neutrophils (Bld) [#/Vol] 5.2 10*3/uL 2.0-7.7 [facility] Anion gap in Serum or Plasma Ordered By: Miladis Sánchez on 04-13-2025 Anion gap [Moles/Vol] 12 mmol/L 04-10 [facility] Automated lymphocyte count a s percentage of total leukocytesOrdered By: Miladis Sánchez on 04-13-2025 Lymphocytes/100 WBC Auto (Unsp spec) 18.7 % Low [facility] BUN/creatinine ratioOrdered By: Miladis Sánchez on 04-13-2025 Urea nitrogen/Creatinine [Mass ratio] 16.6 mg/mg 10-20 [facility] Basophil percentageOrdered B y: Miladis Sánchez on 04-13-2025 Basophils/100 WBC (Bld) 0.7 % 0-1 [facility] Bilirubin Test strip Ql (U)O rdered By: Miladis Sánchez on 04-13-2025 Bilirubin Ql (U) Negative Negative [facility] Bilirubin, totalOrdered By: Miladismonika Sánchez on 04-13-2025 Bilirubin [Mass/Vol] 0.86 mg/dL 0.00-1.30 [facility] CBC W/Diff, Automatedon 03-27 Absolute Lymph 1.37 X10 3/uL Normal 0.83-4.51 [facility] Comment on above: Performed By: #### L 500.4050, L506.0400, L501.9520, L501.5200, L501.21962, L501.4021, L100.0100 #### [facility] [address] [place], [address] Absolute Neut 5.2 X10 3/uL Normal 2.0-7.7 [facility] Comment on above: Performed By: #### L 500.4050, L506.0400, L501.9520, L501.5200, L501.35760, L501.4021, L100.0100 #### [facility] [address] [place], [address] Basophils/100 WBC (Bld) 0.7 % Normal 0-1 [facility] Comment on above: Performed By: #### L 500.4050, L506.0400, L501.9520, L501.5200, L501.63025, L501.4021, L100.0100 #### [facility] [address] [place], [address] Eosinophils/100 WBC (Bld) 1.8 % Normal 0-5 [facility] Comment on above: Performed By: #### L 500.4050, L506.0400, L501.9520, L501.5200, L501.52633, L501.4021, L100.0100 #### [facility] [address] [place], [address] Erythrocyte distribution width (RBC) [Ratio] 13.2 % Normal 11.6-14.6 [facility] Comment on above: Performed By: #### L 500.4050, L506.0400, L501.9520, L501.5200, L501.38250, L501.4021, L100.0100 #### [facility] [address] [place], [address] Hematocrit (Bld) [Volume fraction] 33.4 % Low 37-47 [facility] Comment on above: Performed By: #### L 500.4050, L506.0400, L501.9520, L501.5200, L501.51801, L501.4021, L100.0100 #### [facility] [address] [place], [address] Hemoglobin (Bld) [Mass/Vol] 11.2 g/dL Low 12.0-15.0 [facility] Comment on above: Performed By: #### L 500.4050, L506.0400, L501.9520, L501.5200, L501.59623, L501.4021, L100.0100 #### [facility] [address] [place], [address] IG% 0.400 Normal 0.0-0.9 [facility] Comment on above: Result Comment: IG% - Immature Granulocytes (promyelocytes, myelocytes and metamyelocytes) > 1% indicates that a LEFT SHIFT is Present. Performed By: #### L 500.4050, L506.0400, L501.9520, L501.5200, L501.16171, L501.4021, L100.0100 #### [facility] [address] [place], [address] Lymphocytes/100 WBC (Bld) 18.7 % Low 19-41 [facility] Comment on above: Performed By: #### L 500.4050, L506.0400, L501.9520, L501.5200, L501.01062, L501.4021, L100.0100 #### [facility] [address] [place], [address] MCH (RBC) [Entitic mass] 31.3 pg Normal 27.0-32.0 [facility] Comment on above: Performed By: #### L 500.4050, L506.0400, L501.9520, L501.5200, L501.47229, L501.4021, L100.0100 #### [facility] [address] [place], [address] MCHC (RBC) [Mass/Vol] 33.5 g/dL Normal 32-36 [facility] Comment on above: Performed By: #### L 500.4050, L506.0400, L501.9520, L501.5200, L501.93424, L501.4021, L100.0100 #### [facility] [address] [place], [address] MCV (RBC) [Entitic vol] 93.3 fL Normal 81-99 [facility] Comment on above: Performed By: #### L 500.4050, L506.0400, L501.9520, L501.5200, L501.67074, L501.4021, L100.0100 #### [facility] [address] [place], [address] Monocytes/100 WBC (Bld) 8.1 % Normal 0-10 [facility] Comment on above: Performed By: #### L 500.4050, L506.0400, L501.9520, L501.5200, L501.26355, L501.4021, L100.0100 #### [facility] [address] [place], [address] Neutrophils/100 WBC (Bld) 70.3 % High 47-70 [facility] Comment on above: Performed By: #### L 500.4050, L506.0400, L501.9520, L501.5200, L501.79116, L501.4021, L100.0100 #### [facility] [address] [place], [address] Nucleated RBC (Bld) [#/Vol] 0 10*3/uL Normal 0-5 [facility] Comment on above: Performed By: #### L 500.4050, L506.0400, L501.9520, L501.5200, L501.12883, L501.4021, L100.0100 #### [facility] [address] [place], [address] Platelet mean volume (Bld) [Entitic vol] 9.8 fL Normal 6.2-12.0 [facility] Comment on above: Performed By: #### L 500.4050, L506.0400, L501.9520, L501.5200, L501.96035, L501.4021, L100.0100 #### [facility] [address] [place], [address] Platelets (Bld) [#/Vol] 166 10*3/uL Normal 150-450 [facility] Comment on above: Performed By: #### L 500.4050, L506.0400, L501.9520, L501.5200, L501.15734, L501.4021, L100.0100 #### [facility] [address] [facility] [place], [address] RBC (Bld) [#/Vol] 3.58 10*6/uL Low 4.2-5.4 [facility] Comment on above: Performed By: #### L 500.4050, L506.0400, L501.9520, L501.5200, L501.57728, L501.4021, L100.0100 #### [facility] [address] [place], [address] RDW SD 45.0 fl High 35.1-43.9 [facility] Comment on above: Performed By: #### L 500.4050, L506.0400, L501.9520, L501.5200, L501.76315, L501.4021, L100.0100 #### [facility] [address] [facility] [place], [address] WBC (Bld) [#/Vol] 7.3 10*3/uL Normal 4.4-11.0 [facility] Comment on above: Performed By: #### L 500.4050, L506.0400, L501.9520, L501.5200, L501.84361, L501.4021, L100.0100 #### [facility] [address] [facility] [place], [address] Carbon dioxide, total [Moles /volume] in Central venous bloodOrdered By: Miladis Sánchez on 04-13-2025 CO2 [Moles/Vol] 20.7 mmol/L Low 21.0-32.0 [facility] Chest PA and Lateralon 04-13 Chest PA and Lateral [facility] Imaging Services [address] [place] [address] Chest PA and Lateral MR#: [id number] Acct: [id number] Name: FRANKALLIE A Rep #: [id number] : 1935 F 89 From: Ken Juares MD PCP: Dr. May Avitia MD Status: REG ER Study: Chest PA and Lateral Date of Exam: 04/13/25 Exam# [id number] Ordering Dr: Miladis Sánchez EXAM: XR Chest, 2 Views CLINICAL INDICATION: WEAKNESS TECHNIQUE: Frontal and lateral views of the chest. COMPARISON: No relevant prior studies available. FINDINGS: LUNGS AND PLEURAL SPACES: Unremarkable. No consolidation. No pneumothorax. HEART: Unremarkable. No cardiomegaly. MEDIASTINUM: Unremarkable. Normal mediastinal contour. BONES/JOINTS: Unremarkable. No acute fracture. RAD/Chest PA and Lateral IMPRESSION: No acute cardiopulmonary process. Reading Location: [facility] CC: Dr. May Avitia MD; PIYUSH Sapp Save All Operator: Signed Normal [facility] Chloride assayOrdered By: Charmaine Sánchez on 04-13-2025 Chloride [Moles/Vol] 110 mmol/L High 98-108 [facility] Comprehensive Metabolic Prof ilon 04-13-2025 Albumin [Mass/Vol] 3.8 g/dL Normal 3.4-4.8 [facility] Comment on above: Performed By: #### L 500.4050, L506.0400, L501.9520, L501.5200, L501.83392, L501.4021, L100.0100 #### [facility] [address] [place], [address] Albumin/Globulin [Mass ratio] 1.6 {ratio} Normal 0.9-2.4 [facility] Comment on above: Performed By: #### L 500.4050, L506.0400, L501.9520, L501.5200, L501.07631, L501.4021, L100.0100 #### [facility] [address] [place], [address] ALK PHOS 53 U/L Normal 35-104 [facility] Comment on above: Performed By: #### L 500.4050, L506.0400, L501.9520, L501.5200, L501.63979, L501.4021, L100.0100 #### [facility] [address] [place], [address] ALT [Catalytic activity/Vol] 127 U/L High <=34 [facility] Comment on above: Performed By: #### L 500.4050, L506.0400, L501.9520, L501.5200, L501.12059, L501.4021, L100.0100 #### [facility] [address] [place], [address] AST [Catalytic activity/Vol] 170 U/L High <=31 [facility] Comment on above: Performed By: #### L 500.4050, L506.0400, L501.9520, L501.5200, L501.52300, L501.4021, L100.0100 #### [facility] [address] [place], [address] Bilirubin [Mass/Vol] 0.86 mg/dL Normal 0.00-1.30 [facility] Comment on above: Performed By: #### L 500.4050, L506.0400, L501.9520, L501.5200, L501.38055, L501.4021, L100.0100 #### [facility] [address] [place], [address] BUN/CRE 16.6 RATIO Normal 10-20 [facility] Comment on above: Performed By: #### L 500.4050, L506.0400, L501.9520, L501.5200, L501.30028, L501.4021, L100.0100 #### [facility] [address] [place], [address] Calcium [Mass/Vol] 9.5 mg/dL Normal 7.6-11.0 [facility] Comment on above: Performed By: #### L 500.4050, L506.0400, L501.9520, L501.5200, L501.94890, L501.4021, L100.0100 #### [facility] [address] [place], [address] Chloride [Moles/Vol] 110 mmol/L High 98-108 [facility] Comment on above: Performed By: #### L 500.4050, L506.0400, L501.9520, L501.5200, L501.09999, L501.4021, L100.0100 #### [facility] [address] [place], [address] CO2 [Moles/Vol] 20.7 mmol/L Low 21.0-32.0 [facility] Comment on above: Performed By: #### L 500.4050, L506.0400, L501.9520, L501.5200, L501.25085, L501.4021, L100.0100 #### [facility] [address] [place], [address] Creatinine [Mass/Vol] 1.61 mg/dL High 0.70-1.20 [facility] Comment on above: Performed By: #### L 500.4050, L506.0400, L501.9520, L501.5200, L501.15151, L501.4021, L100.0100 #### [facility] [address] [place], [address] ECRCL 19.47 ml/min Low 50-250 [facility] Comment on above: Performed By: #### L 500.4050, L506.0400, L501.9520, L501.5200, L501.97250, L501.4021, L100.0100 #### [facility] [address] [place], [address] GAP 12 Normal 5-15 [facility] Comment on above: Performed By: #### L 500.4050, L506.0400, L501.9520, L501.5200, L501.78211, L501.4021, L100.0100 #### [facility] [address] [place], [address] GFR/1.73 sq M.predicted among non-blacks MDRD (S/P/Bld) [Vol rate/Area] 31 mL/min/{1.73_m2} Low >60 [facility] Comment on above: Result Comment: mL/m in/1.73m2 CKD-EPI Creatinine Equation (2020) Performed By: #### L 500.4050, L506.0400, L501.9520, L501.5200, L501.76050, L501.4021, L100.0100 #### [facility] [address] [place], [address] Globulin (S) [Mass/Vol] 2.4 g/dL Normal 2.2-4.2 [facility] Comment on above: Performed By: #### L 500.4050, L506.0400, L501.9520, L501.5200, L501.64069, L501.4021, L100.0100 #### [facility] [address] [place], [address] Glucose [Mass/Vol] 165 mg/dL High 70-99 [facility] Comment on above: Performed By: #### L 500.4050, L506.0400, L501.9520, L501.5200, L501.67600, L501.4021, L100.0100 #### [facility] [address] [place], [address] Potassium [Moles/Vol] 3.9 mmol/L Normal 3.3-5.1 [facility] Comment on above: Performed By: #### L 500.4050, L506.0400, L501.9520, L501.5200, L501.36644, L501.4021, L100.0100 #### [facility] [address] [place], [address] Sodium [Moles/Vol] 142 mmol/L Normal 133-145 [facility] Comment on above: Performed By: #### L 500.4050, L506.0400, L501.9520, L501.5200, L501.73161, L501.4021, L100.0100 #### [facility] [address] [place], [address] T PROT 6.2 g/dL Normal 5.9-8.4 [facility] Comment on above: Performed By: #### L 500.4050, L506.0400, L501.9520, L501.5200, L501.10864, L501.4021, L100.0100 #### [facility] [address] [place], [address] Urea nitrogen [Mass/Vol] 27 mg/dL High -19 [facility] Comment on above: Performed By: #### L 500.4050, L506.0400, L501.9520, L501.5200, L501.17049, L501.4021, L100.0100 #### [facility] [address] [place], [address] Echo Completeon 04-13-2025 Echo Complete [facility] [address] [place] [address] Echo Complete 04/14/25 1520 MR#: [id number] Acct: [id number] Name: ALLIE MARIE Rep #: [id number] : 1935 89 From: Philip Martinez MD Attending Dr: Dr. Ken Parker, DO Status: A DM IN Ordering Dr: Lilia Tom MD Date: 04/13/25 Location: [facility] Sex: F C Admitted: 04/13/25 Reason For Study Reason For Study: HOCM Procedure This was a 2D Doppler, Color Flow transthoracic echocardiogram. Exam performed portable in patient room. Left Ventricle Normal LV size. Severe eccentric left ventricular hypertrophy. The left ventricular ejection fraction is 75 %. Resting LV gradient 132 mmHg. Stage 1 diastolic dysfunction. No regional wall motion abnormalities noted. Right Ventricle Normal RV size. Normal systolic function. Atria Normal left atrium. Normal right atrium. Mitral Valve There is mild mitral annular calcification. Systolic anterior motion of the mitral valve. Mild- Moderate (1-2+) eccentric mitral valve insufficiency. Tricuspid Valve Normal tricuspid valve. Mild (1+) tricuspid valve insufficiency. Pulmonary artery systolic pressure is 32 mmHg. Aortic Valve Trisinus/trileaflet aortic valve. Pulmonic Valve Normal pulmonic valve. Great Vessels Mildly calcified aortic root. The pulmonary artery is normal size. Inferior vena cava collapse with respiration. Pericardium/Pleural No pericardial effusion. MMode/2D Measurements Calculations LVIDd: 3.3 cm IVSd: 1.5 cm LVOT diam: 1.9 cm LVIDs: 2.1 cm LVPWd: 0.90 cm LVOT area: 2.9 cm2 RVDd: 3.2 cm FS: 37.6 % Ao root diam: 2.5 cm LAV(MOD-bp): 42.9 ml LVAd ap4: 16.1 cm2 LAV(MOD-bp) Indexed: 28.4 ml/m2 LVLd ap4: 6.6 cm LAV(MOD-sp2): 36.9 ml EDV(MOD-sp4): 32.5 ml LAV(MOD-sp4): 45.4 ml EDV(sp4-el): 33.1 ml LVAs ap4: 6.6 cm2 LVLs ap4: 5.9 cm ESV(MOD-sp4): 6.8 ml ESV(sp4-el): 6.3 ml EF(MOD-sp4): 79.0 % EF(sp4-el): 81.0 % LVAd ap2: 16.4 cm2 SV(MOD-sp4): 25.7 ml SV(MOD-sp2): 22.1 ml LVLd ap2: 6.9 cm SI(MOD-sp4): 17.0 ml/m2 SI(MOD-sp2): 14.6 ml/m2 EDV(MOD-sp2): 32.7 ml EDV(sp2-el): 33.3 ml LVAs ap2: 8.3 cm2 LVLs ap2: 6.1 cm ESV(MOD-sp2): 10.6 ml ESV(sp2-el): 9.6 ml EF(MOD-sp2): 67.6 % SV(sp4-el): 26.9 ml LA dimension(2D): 3.5 cm LA A4 area: 18.8 cm2 RA A4 area: 12.1 cm2 TAPSE: 2.0 cm Time Measurements MV dec time: 0.46 sec Doppler Measurements Calculations MV E max abner: 128.2 cm/sec Lat Peak E' Abner: 4.9 cm/sec Med Peak E' Abner: 4.4 cm/sec MV A max abner: 154.0 cm/sec E/E' lat: 25.9 E/E' med: 29.4 MV E/A: 0.83 MV V2 max: 164.8 cm/sec MV P1/2t max abner: 139.8 cm/sec Ao V2 max: 223.4 cm/sec MV max P.9 mmHg MV P1/2t: 121.6 msec Ao max P.0 mmHg MV V2 mean: 111.0 cm/sec Ao V2 mean: 159.8 cm/sec MV mean P.3 mmHg MV dec slope: 336.7 cm/sec2 Ao mean P.0 mmHg MV V2 VTI: 40.5 cm MVA(P1/2t): 1.8 cm2 Ao V2 VTI: 45.6 cm PA V2 max: 101.4 cm/sec TR max abner: 267.6 cm/sec TR max P.6 mmHg ECHO/Echo Complete Interpretation Summary Normal LV size. Severe eccentric left ventricular hypertrophy. Resting LV gradient 132 mmHg. Stage 1 diastolic dysfunction. The left ventricular ejection fraction is 75 %.+ Ordering Physician: Lilia Tom Referring Physician: May Avitia M.D. Performed By: Amira Sky RDCS 04/14/25 1642 Date Philip Martinez MD CC: Dr. May Avitia MD; Dr. Lilia Tom MD; Dr. Ken Parker DO Date Dictated: 04/14/25 1520 Date Transcribed: 04/14/25 1642 Save All Operator: Signed Normal [facility] Emergency Department Summary on 04-13-2025 Emergency Department Summary [facility] Medical Records Department [address] [place] [address] Emergency Department Summary 04/13/25 MR#: [id number] Acct: [id number] Name: ALLIE MARIE Rep #: [id number] : 1935 89 From: Miladis PICKETT PCP: Dr. May Avitia MD Status:ADM IN Location: [address] History of Present Illness Chief Complaint: Weakness Narrative Narrative: Please presenting today with her daughter due to concerns for generalized weakness that has been ongoing over the past week. Patient admits that she has not been eating or drinking much throughout the day, she is eating maybe a sandwich in total and drinking very little. She does appear dehydrated. She reports that she just does not have much of an appetite. She has been feeling lightheaded with ambulating and has felt weak in her legs which is making it hard for her to ambulate. She also reports feeling intermittently short of breath. She denies currently feeling short of breath. She denies any history of blood clots or recent surgery/travel/immobi lization. She denies any recent illness, fevers, chills, abdominal pain, nausea, vomiting, and chest pain. She denies flulike symptoms. She has a PMH of CVA, HTN, and HLD. [facility] Medical History Essential (primary) hypertension Stenosis of right vertebral artery Hyperlipidemia Obstructive hypertrophic cardiomyopathy Syncope and collapse History of CVA (cerebrovascular accident) (07/2017) Vertigo Depression Obstructive sleep apnea History of TIA (transient ischemic attack) Meniere disease History of asthma Home Medications ???Medication ???Instructions ???Recorded ???Last Taken ???Type aspirin 81 mg chewable tablet 81 mg PO DAILY@0800 health 7 04/12/25 History maintenance clopidogrel 75 mg tablet 75 mg PO DAILY blood thinner 07/1304/12/25 History losartan 50 mg tablet 50 mg PO DAILY #90 tabs 10/27/21 0 04/12/25 Rx levothyroxine 25 mcg tablet 25 mcg PO DAILY 04/13/25 04/12/25 History metoprolol succinate 100 mg 100 mg PO DAILY 04/13/25 04/12/25 History tablet,extended release 24 hr rosuvastatin 40 mg tablet 40 mg PO DAILY 04/13/25 04/12/25 H istory Allergy/AdvReac Type Severity Reaction Status Date / Time hornet venom Allergy Anaphylaxis Verified 04/13/25 14:28 insect venom (yellow jacket) Allergy Anaphylaxis Verified 04/13/25 14:28 Penicillins Allergy Rash Verified 04/13/25 14:28 venom-wasp (Wasp Venom) Allergy Anaphylaxis Verified 04/13/25 14:28 Thqxobn-BBG-BsJ Reductase AdvReac muscle Verified 04/13/25 21:07 Inhibitor (Ojawbfs-Evg-Wbu weakness Reductase Inhibitor) tramadol AdvReac Other Verified 04/13/25 14:28 Family History Mother , age 55 sudden cardiac CAD (coronary artery disease) Sudden cardiac Father , age 77 Lung cancer Sister carotid artery surgery CAD (coronary artery disease) Surgical History (Updated 04/13/25 @ 20:18 by Syeda Camilo) Hx of total knee replacement History of appendectomy History of Wendy fundoplication Social History (Updated 04/13/25 @ 19:[address] Lilia Tom MD) household members: spouse Smoking Status: Former smoker alcohol intake: current alcohol intake frequency: 0-2 drinks per day Alcohol type: wine substance use type: does not use caffeine: Yes Type: coffee Number of servings: 1 what type of physical activity do you participate in: none seatbelt use: always do you feel safe at home: Yes ROS ROS ED Constitutional Constitutional ED: Denies chills or fever(s) Cardiovascular Cardiovascular: Denies chest pain Respiratory/Chest Respiratory/Chest: Denies cough or dyspnea Gastrointestinal Gastrointestinal: Denies abdominal pain, diarrhea, nausea or vomiting Genitourinary Genitourinary ED: Denies dysuria, hematuria or urinary urgency Musculoskeletal Musculoskeletal: Denies arthralgias or myalgias Integumentary Denies rash Neurologic Neurologic: Reports weakness EXAM Physical Exam Const Vital Signs: 04/13/25 14:28 04/13/25 14:31 04/13/25 14:55 Temperature 97.8 F 97.8 F Temperature Source Oral Oral Pulse Rate 85 85 Pulse Rate [Lying] Respiratory Rate 18 18 Respiratory Effort Normal Non-Labored Respiratory Pattern Normal Blood Pressure 132/64 H 132/64 H Blood Pressure [Lying] Blood Pressure Mean 86 86 Blood Pressure Mean [Lying] Pulse Ox 100 100 Oxygen Delivery Method Room Air Room Air 04/13/25 15:26 04/13/25 16:28 04/13/25 18:00 Temperature Temperature Source Pulse Rate 70 72 Pulse Rate [Lying] 76 Respiratory Rate 17 Respiratory Effort Respiratory Pattern Bl (more content not included)... Normal [facility] Eosinophil percentageOrdered By: Miladis Sánchez on 04-13-2025 Eosinophils/100 WBC (Bld) 1.8 % 0-5 [facility] Erythrocyte distribution wid th ratioOrdered By: Miladis Sánchez on 04-13-2025 Erythrocyte distribution width (RBC) [Ratio] 13.2 % 11.6-14.6 [facility] Erythrocyte distribution wid th standard deviationOrdered By: Miladis Sánchez on 04-13-2025 Erythrocyte distribution width (RBC) [Ratio] 45.0 fl High 35.1-43.9 [facility] Free T3on 04-13-2025 Free T3 [Mass/Vol] 1.6 pg/mL Low 2.18-3.98 [facility] Comment on above: Performed By: #### L 500.4050, L506.0400, L501.9520, L501.5200, L501.71492, L501.4021, L100.0100 #### [facility] [address] [place], [address] Free X4Vusazfu By: Miladis Sánchez on 04-13-2025 Free T3 [Mass/Vol] 1.6 pg/mL Low 2.18-3.98 [facility] Glomerular filtration rate ( GFR) estimation/1.73 sq m using serum, plasma, or whole bOrdered By: Miladis Sánchez on 04-13-2025 GFR/1.73 sq M.predicted among non-blacks MDRD (S/P/Bld) [Vol rate/Area] 31 mL/min/{1.73_m2} Low >60 [facility] Comment on above: mL/min/1.73m2 CKD-EP I Creatinine Equation (2020) H AND P Exam - [facility] 04-13-2025 H&P Exam - Hospitalist [facility] Medical Records Department [address] [place] [address] H P Exam - Hospitalist 04/13/25 1840 MR#: [id number] Acct: [id number] Name: ALLIE MARIE Rep #: [id number] : 1935 89 From: Lilia Tom MD PCP: Dr. May Avitia MD Status:ADM IN Location: [place] [address] HPI - General General Date of Admission: 04/13/25 Date of Service: 04/13/25 Chief Complaint: Weakness, debility. 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 Workup in the ED included T97.8, heart rate 85, BP 132/64, respiratory rate 18, no percent room air with most recent repeat vitals heart rate 72, BP 147/63, respiratory rate 17, 98% on room air, CBC with WBC 7.3, hemoglobin 11.2, MCV 93.3, plate 166 without marked shift, coags with INR 1.4, PT 17, CMP with chloride 110, carbon oxide 20.7, BUN/creatinine 27/1.61, GFR 31, glucose 165, magnesium 2.4, hepatic profile with AST/LT 170/127, alk phos 0.83, troponin initial 86 with repeat delta 72, TSH 4.720, free T4 1, free T31.6, urinalysis with specific gravity 1.020, protein 100, occult blood 250, positive nitrite, leukocyte Estrace 500, urine RBCs and WBCs 25-50 with 4+ urine bacteria, urine culture pending per ED, chest x-ray with no acute cardiopulmonary findings, EKG with SR without acute evidence of ischemia. In ED patient ministered full-strength aspirin therapy, 1 L normal saline, Rocephin 1 g IV x 1. [facility] Medical History Essential (primary) hypertension Stenosis of right vertebral artery Hyperlipidemia Obstructive hypertrophic cardiomyopathy Syncope and collapse History of CVA (cerebrovascular accident) (07/2017) Vertigo Depression Obstructive sleep apnea History of TIA (transient ischemic attack) Meniere disease History of asthma Home Medications ???Medication ???Instructions ???Recorded ???Last Taken ???Type aspirin 81 mg chewable tablet 81 mg PO DAILY@0800 health 7 04/12/25 History maintenance clopidogrel 75 mg tablet 75 mg PO DAILY blood thinner 07/1304/12/25 History losartan 50 mg tablet 50 mg PO DAILY #90 tabs 10/27/21 0 04/12/25 Rx levothyroxine 25 mcg tablet 25 mcg PO DAILY 04/13/25 04/12/25 History metoprolol succinate 100 mg 100 mg PO DAILY 04/13/25 04/12/25 History tablet,extended release 24 hr rosuvastatin 40 mg tablet 40 mg PO DAILY 04/13/25 04/12/25 H istory Allergy/AdvReac Type Severity Reaction Status Date / Time hornet venom Allergy Anaphylaxis Verified 04/13/25 14:28 insect venom (yellow jacket) Allergy Anaphylaxis Verified 04/13/25 14:28 Penicillins Allergy Rash Verified 04/13/25 14:28 venom-wasp (Wasp Venom) Allergy Anaphylaxis Verified 04/13/25 14:28 Uirmins-VJI-PyZ Reductase AdvReac muscle Verified 04/13/25 14:28 Inhibitor (Loafckk-Nlr-Cdg weakness Reductase Inhibitor) tramadol AdvReac Other Verified 04/13/25 14:28 Family History Mother , age 55 sudden cardiac CAD (coronary artery disease) Sudden cardiac Father , age 77 Lung cancer Sister carotid artery surgery CAD (coronary artery disease) Surgical History History of Wendy fundoplication Social History (Updated 04/13/25 @ 19:[address] Lilia Tom MD) household members: spouse Smoking Status: Former smoker alcohol intake: current alcohol intake frequency: 0-2 drinks per day Alcohol type: wine substance use type: does not use caffeine: Yes Type: coffee Number of servings: 1 what type of physical activity do you participate in: none seatbelt use: always do you feel safe at home: Yes ROS ROS Narrative Admission Review of Systems: CONSTITUTIONAL: No weight loss, fever, chills, + weakness or fatigue. HEENT: + Lightheadedness. Eyes: No visual loss, blurred vision, double vision or yellow sclerae. Ears, Nose, Throat: No hearing loss, sneezing, congestion, runny nose or sore throat. SKIN: No rash or itching, lesions, wounds. CARDIOVASCULAR: + Lightheadedness. No chest pain, chest pressure (more content not included)... Normal [facility] Hematocrit Auto (Bld) [Volum e fraction]Ordered By: Miladis Sánchez on 04-13-2025 Hematocrit (Bld) [Volume fraction] 33.4 % Low 37-47 [facility] Hemoglobin measurementOrdere d By: Miladis Sánchez on 04-13-2025 Hemoglobin (Bld) [Mass/Vol] 11.2 g/dL Low 12.0-15.0 [facility] Immature granulocytes/100 WB C Auto (Bld)Ordered By: Miladis Sánchez on 04-13-2025 Immature granulocytes/100 WBC (Bld) 0.400 % 0.0-0.9 [facility] Comment on above: IG% - Immature Granu locytes (promyelocytes, myelocytes and metamyelocytes) > 1% indicates that a LEFT SHIFT is Present. International normalized rat io (INR) calculationOrdered By: Ant Vale on 04-13-2025 INR Coag (Bld) [Relative time] 1.4 {INR} [facility] Ketones Test strip Ql (U)Ord ered By: Miladis Sánchez on 04-13-2025 Ketones Ql (U) Negative Negative [facility] L499.0042on 04-13-2025 Trop T High Sen 72 ng/L Invalid Interpretation Code <=14 [facility] Comment on above: Result Comment: Crit ical Result(s) Called at: 04/13/2025-17:53 by: Haresh Greco.??Results read back by same. Performed By: #### L 500.4050, L506.0400, L501.9520, L501.5200, L501.52473, L501.4021, L100.0100 #### [facility] [place], [address] L499.0043on 04-13-2025 Trop T High Sen 87 ng/L Invalid Interpretation Code <=14 [facility] Comment on above: Result Comment: Crit ical Result(s) Called at: 04/13/2025-21:02 by: Haresh Ornelas.??Results read back by same. Performed By: #### L 500.4050, L506.0400, L501.9520, L501.5200, L501.80040, L501.4021, L100.0100 #### [facility] [address] [place], [address] L501.4021on 04-13-2025 Trop T High Sen 86 ng/L Invalid Interpretation Code <=14 [facility] Comment on above: Result Comment: Crit ical Result(s) Called at: 04/13/2025-16:00 by: Haresh Tom to Dari Elizalde.??Results read back by same. Performed By: #### L 500.4050, L506.0400, L501.9520, L501.5200, L501.43417, L501.4021, L100.0100 #### [facility] [address] [place], [place], [id number] Laboratory - Chemistry and C hemistry - challengeOrdered By: Miladis Sánchez on 04-13-2025 AST [Catalytic activity/Vol] 170 U/L High <32 [facility] MCV (mean corpuscular volume ) determinationOrdered By: Miladis Sánchez on 04-13-2025 MCV (RBC) [Entitic vol] 93.3 fL 81-99 [facility] Magnesiumon 04-13-2025 Magnesium [Mass/Vol] 1.9 mg/dL Normal 1.5-2.2 [facility] Comment on above: Order Comment: Comme nts: may add to ED labs Performed By: #### L 500.4050, L506.0400, L501.9520, L501.5200, L501.72114, L501.4021, L100.0100 #### [facility] [address] [place], [place], [id number] Magnesium [Mass/Vol] 2.4 mg/dL High 1.5-2.2 [facility] Comment on above: Performed By: #### L 500.4050, L506.0400, L501.9520, L501.5200, L501.11475, L501.4021, L100.0100 #### [facility] [place], [address] Magnesium measurement (mass/ volume)Ordered By: Lilia Tom on 04-13-2025 Magnesium (Unsp spec) [Mass/Vol] 1.9 mg/dL 1.5-2.2 [facility] Magnesium measurement (mass/ volume)Ordered By: Miladis Sánchez on 04-13-2025 Magnesium (Unsp spec) [Mass/Vol] 2.4 mg/dL High 1.5-2.2 [facility] Mean corpuscular hemoglobin (MCH) determinationOrdered By: Miladis Sánchez on 04-13-2025 MCH (RBC) [Entitic mass] 31.3 pg 27.0-32.0 [facility] Mean corpuscular hemoglobin concentration (MCHC) determinationOrdered By: Miladis Sánchez on 04-13-2025 MCHC (RBC) [Mass/Vol] 33.5 g/dL 32-36 [facility] Mean platelet volume determi nationOrdered By: Miladis Sánchez on 04-13-2025 Platelet mean volume (Bld) [Entitic vol] 9.8 fL 6.2-12.0 [facility] Microscopic analysis of urin e for red blood cells (RBC)Ordered By: Miladis Sánchez on 04-13-2025 Microscopic analysis of urine for red blood cells (RBC) 25-50 SEEN /hpf 0-5 [facility] Monocyte percentageOrdered B y: Miladis Sánchez on 04-13-2025 Monocytes/100 WBC (Bld) 8.1 % 0-10 [facility] Mucus LM Ql (Urine sed)Order ed By: Miladis Sánchez on 04-13-2025 Mucus Ql (Urine sed) 0 SEEN /hpf [facility] Neutrophil percentageOrdered By: Miladis Sánchez on 04-13-2025 Neutrophils/100 WBC (Bld) 70.3 % High 47-70 [facility] Nitrite Test strip Ql (U)Ord ered By: Miladis Sánchez on 04-13-2025 Nitrite Ql (U) Positive High Negative [facility] Nucleated red blood cell per centageOrdered By: Miladis Sánchez on 04-13-2025 Nucleated RBC/100 WBC (Bld) [Ratio] 0 % 0-5 [facility] Platelet countOrdered By: Charmaine ysabelmonika Sánchez on 04-13-2025 Platelets (Bld) [#/Vol] 166 10*3/uL 150-450 [facility] Potassium measurement (mass/ volume)Ordered By: Miladis Sánchez on 04-13-2025 Potassium (Unsp spec) [Mass/Vol] 3.9 mmol/L 3.3-5.1 [facility] Protein Test strip Ql (U)Ord ered By: Miladis Sánchez on 04-13-2025 Protein Ql (U) 100 mg/dl High Negative [facility] Prothrombin Time w/INRon INR Coag (PPP) [Relative time] 1.4 {INR} Normal [facility] Comment on above: Performed By: #### L 500.4050, L506.0400, L501.9520, L501.5200, L501.74936, L501.4021, L100.0100 #### [facility] [address] [place], [place], [id number] PT Coag (PPP) [Time] 17.0 s High 11.7-14.9 [facility] Comment on above: Performed By: #### L 500.4050, L506.0400, L501.9520, L501.5200, L501.55621, L501.4021, L100.0100 #### [facility] [address] [place], [place], [id number] (664) INR Normal [facility] Comment on above: Result Comment: JEOVANNY, SPOKE WITH DARI Performed By: #### L 500.4050, L506.0400, L501.9520, L501.5200, L501.86126, L501.4021, L100.0100 #### [facility] [address] [place], [address] PROTIME Normal 11.7-14.9 [facility] Comment on above: Result Comment: KLEBER UP WITH DARI Performed By: #### L 500.4050, L506.0400, L501.9520, L501.5200, L501.51384, L501.4021, L100.0100 #### [facility] [address] [place], [address] Prothrombin timeOrdered By: Ant Vale on 04-13-2025 PT Coag (PPP) [Time] 17.0 s High 11.7-14.9 [facility] RBC Auto (Bld) [#/Vol]Ordere d By: Miladis Sánchez on 04-13-2025 RBC (Bld) [#/Vol] 3.58 10*6/uL Low 4.2-5.4 [facility] Serum creatinine measurement (mass/volume)Ordered By: Miladis Sánchez on 04-13-2025 Creatinine [Mass/Vol] 1.61 mg/dL High 0.70-1.20 [facility] Serum globulin measurementOr dered By: Miladis Sánchez on 04-13-2025 Globulin (S) [Mass/Vol] 2.4 g/dL 2.2-4.2 [facility] Serum glucose measurement (m ass/volume)Ordered By: Miladis Sánchez on 04-13-2025 Glucose [Mass/Vol] 165 mg/dL High 70-99 [facility] Serum or plasma alanine mckoen otransferase (ALT) measurementOrdered By: Miladis Sánchez on 04-13-2025 ALT [Catalytic activity/Vol] 127 U/L High <35 [facility] Serum or plasma albumin jayy urement (mass/volume)Ordered By: Miladis Sánchez on 04-13-2025 Albumin [Mass/Vol] 3.8 g/dL 3.4-4.8 [facility] Serum or plasma albumin/glob ulin mass ratioOrdered By: Miladis Sánchez on 04-13-2025 Albumin/Globulin [Mass ratio] 1.6 {ratio} 0.9-2.4 [facility] Serum or plasma alkaline kinga sphatase measurementOrdered By: Miladis Sánchez on 04-13-2025 ALP [Catalytic activity/Vol] 53 U/L 35-104 [facility] Serum or plasma calcium jayy urement (mass/volume)Ordered By: Miladis Sánchez on 04-13-2025 Calcium [Mass/Vol] 9.5 mg/dL 7.6-11.0 [facility] Serum or plasma urea nitroge n measurement (mass/volume)Ordered By: Miladis Sánchez on 04-13-2025 Urea nitrogen [Mass/Vol] 27 mg/dL High 4-19 [facility] Sodium levelOrdered By: Stan Sánchez on 04-13-2025 Sodium [Moles/Vol] 142 mmol/L 133-145 [facility] Squamous epithelial cells de tection in urine sediment by light microscopyOrdered By: Miladis Sánchez on 04-13-2025 Epithelial cells.squamous LM Ql (Urine sed) 0-5 SEEN /hpf 5-10 [facility] T4 Free Directon 04-13-2025 T4 FREE DIRECT 1.00 ng/dL Normal 0.76-1.46 [facility] Comment on above: Performed By: #### L 500.4050, L506.0400, [id number], L501.5200, L501.81737, L501.4021, L100.0100 #### [facility] [place] [address] [place], [address] T4 freeOrdered By: Miladis Sánchez on 04-13-2025 Free T4 [Mass/Vol] 1.00 ng/dL 0.76-1.46 [facility] TSH DL <= 0.005 mIU/L QnOrde red By: Miladis Sánchez on 04-13-2025 TSH Qn 4.720 uIU/mL High 0.300-4.200 [facility] Thyroid Stim Hormone (TSH)on 04-13-2025 TSH 4.720 uIU/mL High 0.300-4.200 [facility] Comment on above: Performed By: #### L 500.4050, L506.0400, [id number], L501.5200, L501.80535, L501.4021, L100.0100 #### [facility] [address] [place], [address] Total proteinOrdered By: Paul Sánchez on 04-13-2025 Protein [Mass/Vol] 6.2 g/dL 5.9-8.4 [facility] Troponin T.cardiac [Mass/vol ume] in Serum or Plasma by High sensitivity methodOrdered By: Lilia Tom on 04-13-2025 Troponin T.cardiac High sensitivity method [Mass/Vol] 87 ng/L High <14 [facility] Comment on above: Critical Result(s) C alled at: 04/13/2025-21:02 by: Haresh Tom to iRki Ornelas. Results read back by same. Troponin T.cardiac [Mass/vol ume] in Serum or Plasma by High sensitivity methodOrdered By: Miladis Sánchez on 04-13-2025 Troponin T.cardiac High sensitivity method [Mass/Vol] 72 ng/L High <14 [facility] Comment on above: Critical Result(s) C alled at: 04/13/2025-17:53 by: Haresh Tom to Malou Greco. Results read back by same. Troponin T.cardiac High sensitivity method [Mass/Vol] 86 ng/L High <14 [facility] Comment on above: Critical Result(s) C alled at: 04/13/2025-16:00 by: Haresh Tom to Dari Elizalde. Results read back by same. Urinalysis, Completeon 04-13 CAST,COARSE GR 0-5 SEEN Normal 0-5 /lpf [facility] Comment on above: Order Comment: COLLE CTOR TO SPECIFY Performed By: #### L 500.4050, L506.0400, L501.9520, L501.5200, L501.27856, L501.4021, L100.0100 #### [facility] [address] [place], [address] CAST,FINE GRAN 0-5 SEEN Normal 0-5 [facility] Comment on above: Order Comment: DARYL CTOR TO SPECIFY Performed By: #### L 500.4050, L506.0400, L501.9520, L501.5200, L501.00245, L501.4021, L100.0100 #### [facility] [address] [place], [address] BACTERIA 4+ /hpf Normal None Seen [facility] Comment on above: Order Comment: DARYL CTOR TO SPECIFY Performed By: #### L 500.4050, L506.0400, L501.9520, L501.5200, L501.27482, L501.4021, L100.0100 #### [facility] [address] [place], [address] EPI,RENAL 0-5 SEEN Normal 0-5 [facility] Comment on above: Order Comment: DARYL CTOR TO SPECIFY Performed By: #### L 500.4050, L506.0400, L501.9520, L501.5200, L501.95585, L501.4021, L100.0100 #### [facility] [address] [place], [address] EPI,SQUAMOUS 0-5 SEEN Normal 5-10 [facility] Comment on above: Order Comment: DARYL CTOR TO SPECIFY Performed By: #### L 500.4050, L506.0400, L501.9520, L501.5200, L501.55818, L501.4021, L100.0100 #### [facility] [address] [place], [address] RBC 25-50 SEEN Normal 0-5 [facility] Comment on above: Order Comment: COLLE CTOR TO SPECIFY Performed By: #### L 500.4050, L506.0400, L501.9520, L501.5200, L501.97636, L501.4021, L100.0100 #### [facility] [address] [place], [address] WBC 25-50 SEEN Normal 0-5 [facility] Comment on above: Order Comment: DARYL CTOR TO SPECIFY Performed By: #### L 500.4050, L506.0400, L501.9520, L501.5200, L501.74241, L501.4021, L100.0100 #### [facility] [address] [place], [address] Mucus Ql (Urine sed) 0 SEEN Normal [facility] Comment on above: Order Comment: DARYL CTOR TO SPECIFY Performed By: #### L [id number], L506.0400, L501.9520, L501.5200, L501.53169, L501.4021, L100.0100 #### [facility] [address] [place], [place], [address] Urine clarityOrdered By: Paul Sánchez on 04-13-2025 Clarity (U) Sl. Cloudy Clear [facility] Urine coarse granular cast d etectionOrdered By: Miladis Sánchez on 04-13-2025 Coarse Granular Casts LM Ql (Urine sed) 0-5 SEEN /lpf 0-5 /lpf [facility] Urine color determinationOrd ered By: Miladis Sánchez on 04-13-2025 Color (U) Yellow Yellow [facility] Urine cultureOrdered By: Paul Sánchez on 04-13-2025 Bacteria identified Cx Nom (U) Escherichia coli Abnormal [facility] Urine glucose detectionOrder ed By: Miladis Sánchez on 04-13-2025 Glucose Ql (U) Normal mg/dl Normal [facility] Urine leukocyte esterase det ection by dipstickOrdered By: Miladis Sánchez on 04-13-2025 Leukocyte esterase Test strip Ql (U) 500 /ul High Negative [facility] Urine pHOrdered By: Eugenia Sánchez on 04-13-2025 pH (U) 6.0 [pH] 5.0 - 8.0 [facility] Urine sediment bacteria coun t by microscopy (number/high power field)Ordered By: Miladis Sánchez on 04-13-2025 Bacteria LM.HPF (Urine sed) [#/Area] 4 /[HPF] None Seen [facility] Urine sediment fine granular cast count by microscopy (number/low power field)Ordered By: Miladis Sánchez on 04-13-2025 Fine Granular Casts LM.LPF (Urine sed) [#/Area] 0-5 SEEN /lpf 0-5 [facility] Urine sediment renal epithel ial cell count by microscopy (number/high power field)Ordered By: Miladis Sánchez on 04-13-2025 Epithelial cells.renal LM.HPF (Urine sed) [#/Area] 0 /[HPF] 0-5 [facility] Urine specific gravity measu rementOrdered By: Miladis Sánchez on 04-13-2025 Specific gravity (U) [Rel density] 1.020 1.002-1.030 [facility] Urine urobilinogen measureme ntOrdered By: Miladis Sánchez on 04-13-2025 Urobilinogen Ql (U) 4 mg/dl High Normal [facility] White blood cell (WBC) count Ordered By: Miladis Sánchez on 04-13-2025 WBC (Bld) [#/Vol] 7.3 10*3/uL 4.4-11.0 [facility] White blood cell countOrdere d By: Miladis Sánchez on 04-13-2025 White blood cell count 25-50 SEEN /hpf 0-5 [facility] Absolute lymphocyte countOrd ered By: Aime Fernandes on 02-25-2024 Lymphocytes Auto (Unsp spec) [#/Vol] 1.42 10*3/uL 0.83-4.51 [facility] Automated lymphocyte count a s percentage of total leukocytesOrdered By: Aime Fernandes on 02-25-2024 Lymphocytes/100 WBC Auto (Unsp spec) 19.8 % 19-41 [facility] Basophil percentageOrdered B y: Aime Fernandes on 02-25-2024 Basophils/100 WBC (Bld) 0.7 % 0-1 [facility] Chloride [Moles/Vol] 114 mmol/L 98-107 [facility] Eosinophils/100 WBC (Bld) 2.5 % 0-5 [facility] Glucose [Mass/Vol] 116 mg/dL 74-106 [facility] Comment on above: Fasting Glucose resu lt from 100 to 125 mg/dL suggests IMPAIRED HOMEOSTASIS per A.D.A. criteria. Hemoglobin (Bld) [Mass/Vol] 12.6 g/dL 12.0-15.0 [facility] Monocytes/100 WBC (Bld) 12.4 % 0-10 [facility] Neutrophils (Bld) [#/Vol] 4.6 10*3/uL 2.0-7.7 [facility] Neutrophils/100 WBC (Bld) 64.3 % 47-70 [facility] Potassium [Moles/Vol] 3.7 mmol/L 3.5-5.1 [facility] Sodium [Moles/Vol] 144 mmol/L 136-145 [facility] WBC (Bld) [#/Vol] 7.2 10*3/uL 4.4-11.0 [facility] Basophil percentage 25-50 SEEN /hpf 0-5 [facility] Bilirubin Test strip Ql (U)O rdered By: Aime Fernandes on 02-25-2024 Bilirubin Ql (U) Negative Negative [facility] Determination of erythrocyte mean corpuscular volume (MCV)Ordered By: Aime Fernandes on 02-25-2024 MCV (RBC) [Entitic vol] 89.6 fL 81-99 [facility] Erythrocyte distribution wid th ratioOrdered By: Aime Fernandes on 02-25-2024 Erythrocyte distribution width (RBC) [Ratio] 12.3 % 11.6-14.6 [facility] Erythrocyte distribution wid th standard deviationOrdered By: Aime Fernandes on 02-25-2024 Erythrocyte distribution width (RBC) [Entitic vol] 40.5 fL 35.1-43.9 [facility] Hematocrit Auto (Bld) [Volum e fraction]Ordered By: Aime Fernandes on 02-25-2024 Hematocrit (Bld) [Volume fraction] 37.2 % 37-47 [facility] Hyaline casts LM.LPF (Urine sed) [#/Area]Ordered By: Aime Fernandes on 02-25-2024 Hyaline casts (Urine sed) [#/Area] 10 /[LPF] 0-5 [facility] Immature granulocytes/100 WB C Auto (Bld)Ordered By: Aime Fernandes on 02-25-2024 Immature granulocytes/100 WBC (Bld) 0.300 % 0.0-0.9 [facility] Comment on above: IG% - Immature Granu locytes (promyelocytes, myelocytes and metamyelocytes) > 1% indicates that a LEFT SHIFT is Present. Ketones Test strip Ql (U)Ord ered By: Aime Fernandes on 02-25-2024 Ketones Ql (U) 5 mg/dl Negative [facility] - Chemistry and C hemistry - challengeOrdered By: Aime Fernandes on 02-25-2024 CO2 [Moles/Vol] 22.0 mmol/L 21.0-32.0 [facility] Urea nitrogen/Creatinine [Mass ratio] 13.1 mg/mg 10-20 [facility] - Hematology and Cell countsOrdered By: Aime Fernandes on 02-25-2024 MCH (RBC) [Entitic mass] 30.4 pg 27.0-32.0 [facility] MCHC (RBC) [Mass/Vol] 33.9 g/dL 32-36 [facility] Nucleated RBC/100 WBC (Bld) [Ratio] 0 % 0-5 [facility] Platelet mean volume (Bld) [Entitic vol] 9.7 fL 6.2-12.0 [facility] Platelets (Bld) [#/Vol] 207 10*3/uL 150-450 [facility] Mucus LM Ql (Urine sed)Order ed By: Aime Fernandes on 02-25-2024 Mucus Ql (Urine sed) 2+ /hpf [facility] Nitrite Test strip Ql (U)Ord ered By: Aime Fernandes on 02-25-2024 Nitrite Ql (U) Positive Negative [facility] No Panel InformationOrdered By: Aime Fernandes on 02-25-2024 Estimated GFR (MDRD) Amer 39 mL/min >60 [facility] Comment on above: GFR Calc Estimated GFR (MDRD) Non-Af Amer 32 mL/min >60 [facility] Comment on above: Non- GFR Calc Urine RBC 25-50 SEEN /hpf 0-5 [facility] Protein Test strip Ql (U)Ord ered By: Aime Fernandes on 02-25-2024 Protein Ql (U) 100 mg/dl Negative [facility] RBC Auto (Bld) [#/Vol]Ordere d By: Aime Fernandes on 02-25-2024 RBC (Bld) [#/Vol] 4.15 10*6/uL 4.2-5.4 [facility] Serum or plasma calcium jayy urement (mass/volume)Ordered By: Aime Fernandes on 02-25-2024 Calcium [Mass/Vol] 9.1 mg/dL 8.5-10.1 [facility] Serum or plasma creatinine m easurement (mass/volume)Ordered By: Aime Fernandes on 02-25-2024 Creatinine [Mass/Vol] 1.60 mg/dL 0.55-1.02 [facility] Comment on above: The validity of the calculated GFR & GFRAA in patients over 70 years has not been determined. Clinical correlation is essential. Serum or plasma urea nitroge n measurement (mass/volume)Ordered By: Aime Fernandes on 02-25-2024 Urea nitrogen [Mass/Vol] 21 mg/dL 7-18 [facility] Squamous epithelial cells de tection in urine sediment by light microscopyOrdered By: Aime Fernandes on 02-25-2024 Epithelial cells.squamous LM Ql (Urine sed) 10-25 SEEN /hpf 5-10 [facility] Thin prep Papanicolaou smear with manual screeningOrdered By: Aime Fernandes on 02-25-2024 Thin prep Papanicolaou smear with manual screening 8 5-15 [facility] Transitional cells detection in urine sediment by light microscopyOrdered By: Aime Fernandes on 02-25-2024 Transitional cells LM Ql (Urine sed) 0-5 SEEN /hpf 0-5 [facility] Urine blood detectionOrdered By: Aime Fernandes on 02-25-2024 RBC Ql (U) 250 /ul Negative [facility] Urine clarityOrdered By: Kevin Fernandes on 02-25-2024 Clarity (U) Cloudy Clear [facility] Urine coarse granular cast d etectionOrdered By: Aime Fernandes on 02-25-2024 Coarse Granular Casts LM Ql (Urine sed) 0-5 SEEN /lpf 0-5 /lpf [facility] Urine color determinationOrd ered By: Aime Fernandes on 02-25-2024 Color (U) Yellow Yellow [facility] Urine glucose detectionOrder ed By: Aime Fernandes on 02-25-2024 Glucose Ql (U) Normal mg/dl Normal [facility] Urine leukocyte esterase det ection by dipstickOrdered By: Aime Fernandes on 02-25-2024 Leukocyte esterase Test strip Ql (U) 500 /ul Negative [facility] Urine pHOrdered By: Aime espana on 02-25-2024 pH (U) 5.0 [pH] 5.0 - 8.0 [facility] Urine sediment bacteria coun t by microscopy (number/high power field)Ordered By: Aime Fernandes on 02-25-2024 Bacteria LM.HPF (Urine sed) [#/Area] 4 /[HPF] None Seen [facility] Urine sediment fine granular cast count by microscopy (number/low power field)Ordered By: Aime Fernandes on 02-25-2024 Fine Granular Casts LM.LPF (Urine sed) [#/Area] 0-5 SEEN /lpf 0-5 [facility] Urine specific gravity measu rementOrdered By: Aime Fernandes on 02-25-2024 Specific gravity (U) [Rel density] 1.025 1.002-1.030 [facility] Urine urobilinogen measureme ntOrdered By: Aime Fernandes on 02-25-2024 Urobilinogen Ql (U) 8 mg/dl Normal [facility] Basophil percentageon 2021 Chloride [Moles/Vol] 107 mmol/L 98-[address] [facility] Work Phone: Cholesterol [Mass/Vol] 149 mg/dL <200 [facility] Work Phone: Comment on above: <200 mg/dL Desirable 200-240 mg/dL Borderline >240 mg/dL High Risk Glucose [Mass/Vol] 64 mg/dL 74-106 [facility] Work Phone: Potassium [Moles/Vol] 3.8 mmol/L 3.5-5.1 [facility] Work Phone: [phone] Sodium [Moles/Vol] 141 mmol/L 136-145 [facility] Work Phone: [phone] Triglyceride [Mass/Vol] 213 mg/dL <199 [facility] Work Phone: [phone] Comment on above: The drugs N-Acetylcy steine and Metamizole may falsely depress this assay.Serum Triglycerides Reference Interval Normal <150 mg/dL Borderline high 150 - 199 mg/dL High 200 - 499 mg/dL Very High > or = 500 mg/dL Laboratory - Chemistry and C hemistry - challengeon 10-17-2022 ALT [Catalytic activity/Vol] 24 U/L 13-56 [facility] Work Phone: [phone] CO2 [Moles/Vol] 24.0 mmol/L 21.0-32.0 [facility] Work Phone: [phone] T4 [Mass/Vol] 12.3 ug/dL 4.8-13.9 [facility] Work Phone: [phone] Urea nitrogen/Creatinine [Mass ratio] 24.1 mg/mg 10-20 [facility] Work Phone: No Panel Informationon 10-17 Urine Microalbumin/Creatinine Ratio 628.3 mg/g CRE <30 [facility] Work Phone: [phone] Estimated GFR (MDRD) Amer 59 mL/min >60 [facility] Work Phone: [phone] Comment on above: GFR Calc Estimated GFR (MDRD) Non-Af Amer 49 mL/min >60 [facility] Work Phone: [phone] Comment on above: Non- GFR Calc Thyroid Stimulating Hormone (TSH) 0.06 uIU/mL 0.358-3.74 [facility] Work Phone: [phone] Serum or plasma calcium jayy urement (mass/volume)on 10-17-2022 Calcium [Mass/Vol] 9.1 mg/dL 8.5-10.1 [facility] Work Phone: [phone] Serum or plasma cholesterol in HDL measurement (mass/volume)on 10-17-2022 Cholesterol in HDL [Mass/Vol] 41 mg/dL >40 [facility] Work Phone: Comment on above: The drugs N-Acetylcy steine and Metamizole may falsely depress this assay. Reference Range HDL <40 mg/dL Low HDL Cholesterol HDL >or= 60 mg/dL High HDL Cholesterol Serum or plasma cholesterol in VLDL measurement (mass/volume)on 10-17-2022 Cholesterol in VLDL [Mass/Vol] 43 mg/dL 5-40 [facility] Work Phone: [phone] Serum or plasma creatinine m easurement (mass/volume)on 10-17-2022 Creatinine [Mass/Vol] 1.12 mg/dL 0.55-1.02 [facility] Work Phone: Comment on above: The validity of the calculated GFR & GFRAA in patients over 70 years has not been determined. Clinical correlation is essential. Serum or plasma low density lipoprotein (LDL) cholesterol measurement (mass/volume)on 10-17-2022 Cholesterol in LDL [Mass/Vol] 65 mg/dL 0-130 [facility] Work Phone: [phone] Serum or plasma urea nitroge n measurement (mass/volume)on 10-17-2022 Urea nitrogen [Mass/Vol] 27 mg/dL 7-18 [facility] Work Phone: [phone] Thin prep Papanicolaou smear with manual screeningon 10-17-2022 Thin prep Papanicolaou smear with manual screening 1200.0 mg/L NO RANGE EST. [facility] Work Phone: [phone] Thin prep Papanicolaou smear with manual screening 23 U/L 15-37 [facility] Work Phone: [phone] Thin prep Papanicolaou smear with manual screening 10 5-15 [facility] Work Phone: [phone] Urine creatinine measurement (mass/volume)on 10-17-2022 Creatinine (U) [Mass/Vol] 191.00 mg/dL NO RANGE EST. [facility] Work Phone: Office Visiton 05-02-2017 Fall risk assessment Yes [facility] Work Phone: [phone] Protein mass conc Done [facility] Work Phone: [phone] Clinical Lists Update: 04-28-2017 Left ventricular Ejection fraction 75 % [facility] Work Phone: [phone] Office Visiton 10-13-2016 Documentation of current medications (procedure) Done Invalid Interpretation Code [facility] Work Phone: [phone] Clinical Lists Update: 08-05-2016 Tobacco smoking status NHIS Former smoker [facility] Work Phone: [phone] Tobacco use CPHS Former smoker Invalid Interpretation Code [facility] Work Phone: [phone] Clinical Lists Update: 06-23-2016 Anion gap 10 mmol/L Invalid Interpretation Code [facility] Work Phone: [phone] Anion gap [Moles/Vol] 10 mmol/L [facility] Work Phone: [phone] basophils as percent of blood leukocytes, manual count 1.3 % High [facility] Work Phone: [phone] BUN/Creatinine Ratio 14.4 mg/mg [facility] Work Phone: [phone] Calcium 8.3 mg/dL Low [facility] Work Phone: [phone] Chloride 110 mmol/L High [facility] Work Phone: [phone] Cholesterol 242 mg/dL High [facility] Work Phone: [phone] CO2 21.0 mmol/L Invalid Interpretation Code [facility] Work Phone: [phone] CO2 (BldV) [Partial pressure] 21.0 mmol/L [facility] Work Phone: [phone] Creatinine 0.90 mg/dL [facility] Work Phone: [phone] eosinophils as percent of blood leukocytes, manual count 5.6 % High [facility] Work Phone: [phone] Erythrocyte distribution width (RBC) [Ratio] 12.1 % [facility] Work Phone: [phone] Erythrocytes (RBC) 3.96 10*6/uL Low [facility] Work Phone: [phone] Glucose 101 mg/dL Invalid Interpretation Code [facility] Work Phone: [phone] Glucose [Mass/Vol] 101 mg/dL [facility] Work Phone: [phone] HDL Cholesterol 28 mg/dL Low [facility] Work Phone: [phone] Hematocrit (Bld) [Volume fraction] 34.8 % Low [facility] Work Phone: [phone] Hematocrit (HCT) 34.8 % Low [facility] Work Phone: [phone] Hemoglobin (HGB) 12.4 g/dL [facility] Work Phone: [phone] LDL Cholesterol 153 mg/dL High [facility] Work Phone: [phone] Lymphocytes/100 leukocytes 39.3 % Invalid Interpretation Code [facility] Work Phone: Lymphocytes/100 WBC (Bld) 39.3 % [facility] Work Phone: [phone] MCH 31.3 pg Invalid Interpretation Code [facility] Work Phone: [phone] MCH (RBC) [Entitic mass] 31.3 pg [facility] Work Phone: [phone] MCHC 35.6 g/dL Invalid Interpretation Code [facility] Work Phone: [phone] MCHC (RBC) [Mass/Vol] 35.6 g/dL [facility] Work Phone: MCV 87 fL Invalid Interpretation Code [facility] Work Phone: [phone] MCV (RBC) [Entitic vol] 87 fL [facility] Work Phone: [phone]) Monocytes/100 leukocytes 15.3 % High [facility] Work Phone: [phone] Monocytes/100 WBC (Bld) 15.3 % High [facility] Work Phone: [phone] neutrophils, band form as percent of blood leukocytes, manual count 37.9 % Low [facility] Work Phone: Platelet mean volume (Bld) [Entitic vol] 9.8 fL [facility] Work Phone: [phone] Platelets 224 10*3/mm3 Invalid Interpretation Code [facility] Work Phone: [phone] Platelets (Bld) [#/Vol] 224 10*3/mm3 [facility] Work Phone: [phone] PMV by Melonie 9.8 fL Invalid Interpretation Code [facility] Work Phone: [phone] Potassium 3.6 mmol/L [facility] Work Phone: [phone] RBC (Bld) [#/Vol] 3.96 10*6/uL Low [facility] Work Phone: [phone] RDW-CA 12.1 % Invalid Interpretation Code [facility] Work Phone: [phone] Sodium 141 mmol/L [facility] Work Phone: [phone] Triglyceride 306 mg/dL High [facility] Work Phone: [phone] Urea nitrogen 13 mg/dL [facility] Work Phone: [phone] very low density lipoproteins 61 mg/dL High [facility] Work Phone: [phone] WBC (Bld) [#/Vol] 6.2 10*3/uL [facility] Work Phone: [phone] WBC (Leukocytes) 6.2 10*3/uL Invalid Interpretation Code [facility] Work Phone: [phone] Vital Signs Date Time Vital Sign Value Performing Clinician Faci landryy 06-13-2025 19:10-0400 Diastolic blood pressure 84 mm[Hg] Dr. May Avitia MD Work Phone: [facility] 06-13-2025 19:10-0400 Heart rate 69 /min Dr. May Avitia MD Work Phone: [facility] 06-13-2025 19:10-0400 Respiratory rate 16 /min Dr. May Avitia MD Work Phone: [facility] 06-13-2025 19:10-0400 SaO2% (BldA) [Mass fraction] 97 % Dr. May Avitia MD Work Phone: 6(687)321-328875 [place] [address] 06-13-2025 19:10-0400 Systolic blood pressure 175 mm[Hg] Dr. May Avitia MD Work Phone: 9(578)539-466066 [place] [address] 06-13-2025 17:45-0400 Body temperature 97.9 [degF] Dr. May Avitia MD Work Phone: 0(135)955-883875 [place] [address] 06-13-2025 15:06-0400 Body height 157.[address] May Avitia MD Work Phone: 8(705)514-653066 [place] [address] 06-13-2025 15:06-0400 Body mass index (BMI) [Ratio] 21.9 kg/m2 Dr. May Avitia MD Work Phone: 2(005)179-401266 [place] [address] 06-13-2025 15:06-0400 Body weight 54.[address] May Avitia MD Work Phone: 0(678)081-562366 [place] [address] 04-15-2025 15:27-0400 Body temperature 97.8 [degF] Dr. May Avitia MD Work Phone: 8(388)757-078166 [place] [address] 04-15-2025 15:27-0400 Diastolic blood pressure 55 mm[Hg] Dr. May Avitia MD Work Phone: 2(844)581-763466 [place] [address] 04-15-2025 15:27-0400 Heart rate 65 /min Dr. May Avitia MD Work Phone: 9(331)144-182966 [place] [address] 04-15-2025 15:27-0400 Respiratory rate 16 /min Dr. May Avitia MD Work Phone: 4(270)795-352975 [place] [address] 04-15-2025 15:27-0400 SaO2% (BldA) [Mass fraction] 96 % Dr. May Avitia MD Work Phone: 3(454)995-347275 [place] [address] 04-15-2025 15:27-0400 Systolic blood pressure 121 mm[Hg] Dr. May Avitia MD Work Phone: 6(423)344-836075 [place] [address] 04-15-2025 03:43-0400 Body mass index (BMI) [Ratio] 21.4 kg/m2 Dr. May Avitia MD Work Phone: 2(842)343-931375 [place] [address] 04-15-2025 03:43-0400 Body weight 53.[address] May Avitia MD Work Phone: 0(815)260-919066 [place] [address] 04-14-2025 10:17-0400 Body height 157.[address] May Avitia MD Work Phone: 8(195)613-805666 [place] [address] 04-13-2025 18:41-0400 Body temperature 97.8 [degF] Dr. May Avitia MD Work Phone: 1(531)096-027166 [place] [address] 04-13-2025 18:41-0400 Diastolic blood pressure 65 mm[Hg] Dr. May Avitia MD Work Phone: 0(404)282-686766 [place] [address] 04-13-2025 18:41-0400 Heart rate 72 /min Dr. May Avitia MD Work Phone: 2(343)560-577866 [place] [address] 04-13-2025 18:41-0400 Respiratory rate 16 /min Dr. May Avitia MD Work Phone: 4(249)230-979566 [place] [address] 04-13-2025 18:41-0400 SaO2% (BldA) [Mass fraction] 99 % Dr. May Avitia MD Work Phone: 0(267)565-667766 [place] [address] 04-13-2025 18:41-0400 Systolic blood pressure 151 mm[Hg] Dr. May Avitia MD Work Phone: 4(107)282-353866 [place] [address] 04-13-2025 14:55-0400 Body mass index (BMI) [Ratio] 21 kg/m2 Dr. May Avitia MD Work Phone: 2(522)606-120666 [place] [address] 04-13-2025 14:55-0400 Body weight 52.[address] May Avitia MD Work Phone: 9(538)665-409366 [place] [address] 04-13-2025 14:28-0400 Body height 157.[address] May Avitia MD Work Phone: 5(028)825-158566 [place] [address] 02-26-2024 00:00-0400 Diastolic blood pressure 72 mm[Hg] [facility] 02-26-2024 00:00-0400 Heart rate 89 /min [facility] 02-26-2024 00:00-0400 Respiratory rate 18 /min [facility] 02-26-2024 00:00-0400 SaO2% (BldA) [Mass fraction] 97 % [facility] 02-26-2024 00:00-0400 Systolic blood pressure 127 mm[Hg] [facility] 02-25-2024 20:43-0400 Body height 160.02 cm [facility] 02-25-2024 20:43-0400 Body temperature 96.3 [degF] [facility] 05-02-2017 14:54-0400 BMI (Body Mass Index) 26.92 kg/m2 [facility] Work Phone: 05-02-2017 14:54-0400 Body weight 66.77 kg [facility] Work Phone: 05-02-2017 14:54-0400 BP Diastolic 64 mm[Hg] [facility] Work Phone: 05-02-2017 14:54-0400 BP Systolic 120 mm[Hg] [facility] Work Phone: 05-02-2017 14:54-0400 Height 157.48 cm [facility] Work Phone: 05-02-2017 14:54-0400 Pulse (Heart Rate) 72 /min [facility] Work Phone: 05-02-2017 14:54-0400 Respiratory Rate 20 /min [facility] Work Phone: 05-02-2017 14:54-0400 Weight 66.77 kg [facility] Work Phone: 10-13-2016 13:43-0500 BMI (Body Mass Index) 27.38 kg/m2 Ramona Philip RN [facility] Work Phone: 10-13-2016 13:43-0500 Body weight 67.9 kg [facility] Work Phone: 10-13-2016 13:43-0500 BP Diastolic 80 mm[Hg] Ramona Philip RN [facility] Work Phone: 10-13-2016 13:43-0500 BP Systolic 142 mm[Hg] Ramona Philip RN [facility] Work Phone: 10-13-2016 13:43-0500 BSA (Body Surface Area) 1.69 m2 Ramona Philip RN [facility] Work Phone: 10-13-2016 13:43-0500 Pulse (Heart Rate) 64 /min [facility] Work Phone: 10-13-2016 13:43-0500 Respiratory Rate 20 /min [facility] Work Phone: 10-13-2016 13:43-0500 Weight 67.9 kg Ramona Philip RN [facility] Work Phone: 08-10-2016 10:56-0400 Height 157.48 cm Ramona Philip RN [facility] Work Phone: Encounters Encounter Date Encounter Type Care Provider Facility Start: 06-27-2025 ambulatory Akhil Leslie Faci lity:[facility] Start: 06-24-2025 Encounter for other preprocedural examination Akhil Leslie [facility] Start: 06-13-2025 End: 06-13-2025 Admission to same day surgery center Dr. Akhil Leslie MD [facility] Start: 06-13-2025 End: 06-13-[address] May Avitia MD Work Phone: [facility] Start: 06-12-2025 End: 06-12-[address] May Avitia MD Work Phone: -Cat Scan [facility] Start: 06-12-2025 End: 06-12-[address] Akhil Leslie MD -Cat Scan [facility] Work Phone: Start: 06-12-2025 End: 06-12-2025 ambulatory Akhil Leslie Facility:[facility] Start: 05-28-2025 End: 05-28-[address] May Avitia MD Work Phone: -[facility] [place] [facility] Start: 05-28-2025 End: 05-28-2025 Patient encounter procedure Boubacar Adelaideorrow AQUA AMMONIA OPERATOR-C -[facility] Work Phone: Start: 05-28-2025 End: 05-28-2025 ambulatory May Avitia Facility:[facility] Start: 04-14-2025 Non-patient / Non-visit Dr. Jolene Parker DO -[facility] Work Phone: Start: 04-14-2025 ambulatory Philip Martinez Facility:[facility] Start: 04-14-2025 Non-patient / Non-visit Dr. Matteo DAILY -[facility] Start: 04-13-2025 ambulatory Lilia Tom Facility :[facility] Start: 04-13-2025 End: 04-15-2025 Evaluation and management of inpatient Dr. Lilia Tom MD -Progressive Care Unit Work Phone: Start: 02-25-2024 End: 02-26-2024 Emergency department patient visit [facility]-Emergency Department Work Phone: Start: 10-17-2022 End: 10-17-2022 ambulatory [facility] Work Phone: Start: 10-17-2022 End: 10-17-2022 Patient encounter procedure [facility] Family Procedures Date Procedure Procedure Detail Performing Clinician Start: 06-13-2025 Cystoscopy and retro grade pyelography Dr. May Avitia MD Work Phone: Start: 06-13-2025 Fluoroscopic guidance Riky Avitia MD Work Phone: Start: 06-12-2025 CT of abdomen and pe lvis without contrast Dr. May Avitia MD Work Phone: Start: 04-14-[address] May Avitia MD Work Phone: Start: 04-13-2025 Urnls dip stick/tabl et reagent auto microscopy Dr. May Avitia MD Work Phone: Start: 04-13-2025 X-ray of chest, PA a nd lateral views Dr. May Avitia MD Work Phone: Start: 04-13-[address] May Avitia MD Work Phone: Start: 04-13-[address] May dang MD Work Phone: Start: 02-25-2024 CT of abdomen and pe lvis without contrast Start: 05-02-2017 End: 05-02-2017 Documentation of current medications Martha Mcrae Start: 05-02-2017 End: 05-02-2017 Follow Up Appt 6 months Loraine De La Torre Start: 05-02-2017 End: 05-02-2017 DAMIEN Martinez MD Start: 10-13-2016 End: 10-13-2016 Documentation of current medications Dallas Edmond Start: 10-13-2016 End: 10-13-2016 HOANG Martinez MD Start: 10-13-2016 End: 10-13-2016 Follow Up Appt 6 months Loraine De La Torre Start: 08-10-2016 End: 08-10-2016 HOANG Martinez MD Start: 08-10-2016 End: 08-10-2016 Follow Up Appt 2 months Loraine De La Torre Plan of Treatment Date Care Activity Detail Author Start: 06-13-2025 Ambulation without limitation [facility] Start: 06-13-2025 Medication education [facility] Start: 06-13-2025 End: 06-13-2025 Patient discharge [facility] Start: 06-13-2025 Taking patient vital signs [facility] Start: 06-13-2025 [facility] Start: 04-15-2025 Patient discharge [facility] Start: 04-14-2025 Referral to service [facility] Start: 04-13-2025 Following clinical pathway protocol [facility] Start: 04-13-2025 Assessment of risk of venous thromboembolism [facility] Start: 04-13-2025 Fall prevention [facility] Start: 04-13-2025 Inhalation therapy procedure [facility] Start: 04-13-2025 Insertion of catheter into peripheral vein [facility] Start: 04-13-2025 Introduction of urinary catheter [facility] Start: 04-13-2025 Measuring intake and output [facility] Start: 04-13-2025 Oxygen therapy [facility] Start: 04-13-2025 Providing care according to standard [facility] Start: 04-13-2025 Provision of activity privileges [facility] Start: 04-13-2025 Referral to occupational therapist [facility] Start: 04-13-2025 Referral to service [facility] Start: 04-13-2025 [facility] Start: 04-13-2025 Verification routine [facility] Start: 04-13-2025 Hospital admission, emergency, from emergency room, medical nature [facility] Start: 04-13-2025 Admission procedure [facility] Start: 04-13-2025 [facility] Start: 04-13-2025 [facility] Start: 04-13-2025 Bacteria identified in Urine by Culture Urine Culture [facility] Start: 04-13-2025 Patient referral to dietitian [facility] Start: 04-13-2025 [facility] Start: 02-26-2024 Bacteria identified in Urine by Culture Urine Culture [facility] Start: 02-26-2024 End: 02-26-2024 [facility] Start: 11-13-2017 End: 11-13-2017 Appointment Appointment [facility] Work Phone: Start: 05-02-2017 End: 05-02-2017 Appointment Appointment [facility] Work Phone: Start: 05-02-2017 End: 05-02-2017 Follow Up Appt 6 months Follow Up Appt 6 months [facility] Work Phone: Start: 05-02-2017 End: 05-02-2017 MMM MMM [facility] Work Phone: Start: 10-13-2016 End: 10-13-2016 [facility] Work Phone: Start: 10-13-2016 End: 10-13-2016 Follow Up Appt 6 months Follow Up Appt 6 months [facility] Work Phone: Start: 08-10-2016 End: 08-10-2016 [facility] Work Phone: Start: 08-10-2016 End: 08-10-2016 Follow Up Appt 2 months Follow Up Appt 2 months [facility] Work Phone: Bacteria identified in Urine by Culture [facility] Cytology report of B marcela fluid Cyto stain [facility] Magnesium measurement [facility] Microscopic observat ion [Identifier] in Body fluid by Cyto stain [facility] Patient Education UTIs [facility] Pyelonephritis, Female (Adult) [facility] Work Phone: Patient referral [facility] Work Phone: Urine culture [facility] Immunizations Immunization Date Immunization Notes Care Provider [facility] 11-08-2024 influenza, high dose seasonal, preservative-free Dr. May Avitia MD Work Phone: [facility] 11-08-2024 Pfizer Covid-19 (Comirnaty) Dr. May Avitia MD Work Phone: [facility] 02-17-2021 Covid (Moderna) [facility] 01-20-2021 Covid (Moderna) [facility] 08-07-2017 Influenza virus vaccine [facility] 08-29-2016 Influenza virus vaccine [facility] 02-26-2014 pneumococcal vaccine , unspecified formulation [facility] 09-10-2013 Influenza virus vaccine [facility] 02-09-2004 pneumococcal vaccine , unspecified formulation [facility] Payers Date Payer Category Payer Self-pay [id number] 2016 Unknown [id number] 2002 Medicare [id number] Unknown [id number] 2.16.8 [id number] Unknown [id number] 2.16.8 [id number] Unknown [id number] 2.16.8 [id number] Unknown [id number] 2.16.8 [id number] Unknown [id number] 2.16.8 [id number] Unknown [id number] 2.16.8 [id number] Unknown [id number] 2.16.8 [id number] Unknown [id number] 2.16.8 [id number] Social History Date Type Detail Facility Start: 02-10-2022 End: 02-25-2024 Tobacco smoking status NHIS Unknown if ever smoked [facility] Start: 1935 Sex Assigned At Female [facility] Start: 01-05-2018 Occasional [facility] Start: 07-13-2017 None [facility] Start: 07-13-2017 Alone [facility] Start: 01-05-2018 Non-smoker [facility] Start: 04-13-2025 End: 06-12-2025 Tobacco smoking status NHIS Ex-smoker (finding) [facility] NEGATED: Highlighted row Not [facility] Goals Date Patient Goal Desired Activity /State Functional Status Date Assessment Result Facility 06-13-2025 Functional status Ambulates;Bathroom Priv ilege [facility] Work Phone: 04-15-2025 Functional status Bedrest [facility] Work Phone: Mental Status Date Assessment Result Facility 06-13-2025 Cognitive function Level Of Consciousness Sedated [facility] Work Phone: 06-13-2025 Cognitive function Voice/Name [facility] Work Phone: 04-15-2025 Cognitive function Voice/Name [facility] Work Phone: 04-13-2025 Cognitive function Level Of Cons ciousness Awake;Alert;Appropriate [facility] Work Phone: Clinical Notes 12-21-2020 to 06-13-2025 Note Date & Type Note Facility 06-13-2025 Consult note [facility] 06-13-2025 Discharge summary [facility] 06-13-2025 History and physical note [facility] 06-13-2025 Consult note [facility] 06-13-2025 Discharge summary Note Date/Time June 13, 2025 7:24pm [facility] Medical Records Department [address] [place] [address] Instructions for Home/Discharge Instructions 06/13/25 1655 MR#: [id number] Acct: [id number] Name: ALLIE MARIE Rep #:[id number] : 1935 89 From: Akhil Leslie MD PCP: Dr. Angel Juan MD Status :REG SDC Discharge Instructions DC O2, CPAP, BIPAP needs Home O2 Discharge instructions: No Dressing / Incision Discharge Activity: Return to Normal Activity and No Restrictions Dressing / Incision Call your doctor if you observe: Fever of 101 or Higher and Uncontrolled pain Follow Up Care Please Follow Up With: Akhil Leslie MD When: Call [phone] for an appointment Test Results: Test results from this visit will be discussed in further detail at your follow-up appointment, if applicable. Discharge Plan Admission Primary Reason for Your Visit: bleeding from right kidney Attending Provider: Akhil Leslie Primary Care Provider: Angel Juan Instructions Print Language: Mongolian Discharge Orders/Prescriptions Prescriptions: New ibuprofen 400 mg tablet 400 mg PO Q6H PRN (Reason: pain) Qty: 14 0RF ciprofloxacin HCl 500 mg tablet 500 mg PO BID Qty: 10 0RF Continued metoprolol succinate 100 mg tablet extended release 24 hr 100 mg PO DAILY levothyroxine 25 mcg tablet 25 mcg PO DAILY rosuvastatin 40 mg tablet 40 mg PO DAILY losartan 50 mg tablet 50 mg PO DAILY Qty: 90 3RF Held clopidogrel 75 MG tablet 75 mg PO DAILY Hold Instructions: Resume on 06/27/25. aspirin 81 MG tablet,chewable 81 mg PO DAILY@0800 Hold Instructions: Resume on 06/27/25. Referrals / Follow Up: Angel Juan MD [Primary Care Provider] - Akhil Leslie MD [Med Staff - Active Staff] - Disposition Disposition (needs filled in before D/C Order can be placed): Home, Self Care 06/13/255<Electronically signed by Akhil Leslie MD>Akhil Leslie MD CC: Dr. Angel Juan MD ~ Signed [facility] Work Phone: 1(165) 121-354407-18-2025 Consult note Author Viet [facility] Note Date/Time June 13, 2025 4:33 pm [facility] Medical Records Department [address] [place] [address] Pre-Anesthesia Evaluation 06/13/25 1620 MR#: [id number] Acct: [id number] Name: ALLIE MARIE Rep #:[id number] : 1935 89 From: Viet Srinivasan MD PCP: Dr. Angel Juan MD Status :REG SDC Y Race: C Location: [place] [address] ASA Classification* ASA Classification ASA Classification: 3 Assessment & Plan Anesthesia* Anesthesia Assessment Anesthesia Assessment: Discussed sedation and/or anesthesia options, risks, benefits, and alternatives with patient/parents/legal guardian/POA. Questions invited. The patient/parents/legal guardian/POA seems to understand and agrees to proceedwith anesthesia plan. Reviewed the physical assessment, medical history, allergy history and patient home medications list prior to surgery/procedure/anesthetic and documented any changes. Performed airway and anesthesia risk assessments. Anesthesia Type Anesthesia Type: General History Source History Obtained from:: Patient and Chart Anesthesia Focused Assessment* Temperature: 96.7 F Pulse Rate: 62 Blood Pressure: 138/60 Respiratory Rate: 14 Pulse Ox: 97 Oxygen Delivery Method: Room Air Airway Assessment Mouth opens: >3 cm Mallampati Score: III Teeth Condition: Caps/Crowns (Patient has about 4 crowns. They are tight.) Neck Range of motion (ROM): Full ROM Labs Anesthesia Preop lab: CBC WBC 7.1 K/mm3 (4.4-11.0) 04/14/25 05:39 04/14/25 RBC 3.03 M/mm3 (4.2-5.4) L 04/14/25 05:39 04/14/25 Hgb 9.4 g/dL (12.0-15.0) L 04/14/25 05:39 04/14/25 Hct 28.5 % (37-47) L 04/14/25 05:39 04/14/25 Plt Count 136 K/mm3 (150-450) L 04/14/25 05:39 04/14/25 CHEMISTRY Potassium 4.3 mmol/L (3.3-5.1) 04/14/25 05:39 04/14/25 Sodium 142 mmol/L (133-145) 04/14/25 05:39 04/14/25 Magnesium 1.9 mg/dL (1.5-2.2) 04/13/25 17:15 04/13/25 BUN 25 mg/dL (4-19) H 04/14/25 05:39 04/14/25 Creatinine 1.36 mg/dL (0.70-1.20) H 04/14/25 05:39 Glucose 91 mg/dL (70-99) 04/14/25 05:39 04/14/25 POC Glucose 143 mg/dL (70-110) H 04/21/19 23:02 04/21/19 TSH 6.240 uIU/mL (0.300-4.200) H 05/28/25 13:48 COAG PT 17.0 SECONDS (11.7-14.9) H 04/13/25 16:40 03/27 07/21 Pre-Assessment Diagnosis/Proposed Procedure Planned Operative Procedure(s): RIGHT URETEROSCOPY BIOPSY STENT, laser, cystoscopy with right retrograde pyelograms Anesthesia History Anesthesia History - harness tier: Anesthesia History - harness tier Hx Hospitalization Yes: SYNCOPE/SEVERE 06/12/25 16:21 DEHYDRATION AND UTI Any Problems With Anesthesia No 06/12/25 16:21 Cholinesterase deficiency No 06/12/25 16:21 You/Your Family Experience No 06/12/25 16:21 fever (hyperthermia) with Relationship Recent Exposure to Contagious No 06/13/25 15:06 Disease Does patient have nerve No 06/12/25 16:21 stimulator Patient instructed to have device shut off --Does patient have Pacemaker No 06/13/25 15:06 or ICD? When Was Last Pacemaker Check QUESTION #4 FULL TEXT: You/Your Family Experience fever (hyperthermia) with Anesthesia Last Oral Intake Last Oral intake: Last Oral Intake NPO since 21:00 06/13/25 15:06 Meds taken in AM with sips of No 06/13/25 15:06 water? Meds patient instructed to take am of surgery PONV PONV - harness tier: PONV - harness tier Female Yes 06/12/25 16:21 HX of Motion Sickness No 06/12/25 16:21 HX of N/V After Surgery No 06/12/25 16:21 Non-Smoker Yes 06/12/25 16:21 Duration of Surgery greater No 06/12/25 16:21 than 60 minutes Number of Risk Factors 2 06/12/25 16:21 PONV Score Moderate Risk 06/12/25 16:21 Height & Weight Height & Weight: Anesthesia: Height & Weight Height 5 ft 2 in 06/13/25 15:06 Weight: 54.3 kg 06/13/25 15:06 Body Mass Index (BMI) 21.9 06/13/25 15:06 Respiratory Assessment Respiratory Assessment - harness tier: Respiratory Tract Infection Hx - harness tier Hx Respiratory Tract Infection No 06/12/25 16:21 STOP Sleep Apnea STOP Sleep Apnea - harness tier: STOP Sleep Apnea - harness tier Hx Hypertension Yes: CONTROLLED WITH MEDS 06/12/25 16:21 Hx Sleep Apnea No 06/12/25 16:21 CPAP No 04/13/25 20:06 BIPAP No 04/13/25 20:06 Do you snore loudly (louder No 06/12/25 16:21 than talking or can be heard Do you often feel tired/ Yes 06/12/25 16:21 fatigued/ sleepy during daytime? Has anyone observed you stop No 06/12/25 16:21 breathing during sleep? STOP Results Positive 06/12/25 16:21 QUESTION #5 FULL TEXT : Do you snore loudly (louder than talking or can be heard through closed doors)? 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 Specify any problems Hx of Preganancy in last 3 No 06/12/25 16:21 Months Nurse Filling Out Transfusion DSCHRIBER 06/12/25 16:21 & Questions: Date: 06/12/25 06/12/25 16:21 Time: 16:23 06/12/25 16:21 Patient unable to answer at this time (ie. confused, unrespo /Reproduction History /Reproductive History - harness tier: /Reproductive Hx- harness tier Hx Now No 06/12/25 16:21 Gestational Age (in weeks): EDC: Hx Hx Para Hx Section SAB No 06/12/25 16:21 Active Medications Active Medications: Current Medications Generic Name Dose Route Start Last Admin Trade Name Cici PRN Reason Stop Dose Admin Cefazolin Sodium 2 gm/ Sodium 110 mls @ 200 mls/hr 06/13/25 16:30 Chloride IV 06/13/25 17:02 INTRAOP ONE Lactated Ringer's 1,000 mls @ 15 mls/hr 06/13/25 14:45 06/13/25 15:18 IV 15 mls/hr .Q48H ROJAS Administration PFSH Medical History Wears glasses Open wound Thyroid disease Walker as ambulation aid Ambulates with cane Arthritis DVT (deep venous thrombosis) High cholesterol History of ulceration Non-smoker Shortness of breath on exertion History of echocardiogram Cardiology follow-up encounter UTI (urinary tract infection) Generalized weakness Essential (primary) hypertension Stenosis of right vertebral artery Obstructive hypertrophic cardiomyopathy Syncope and collapse History of CVA (cerebrovascular accident) (07/2017) Vertigo Depression History of TIA (transient ischemic attack) Meniere disease History of asthma Home Medications ?Medication ?Instructions ?Recorded ?Last Taken ?Type aspirin 81 mg chewable tablet 81 mg PO DAILY@0800 heal th 07/13/17 06/12/25 History maintenance clopidogrel 75 mg tablet 75 mg PO DAILY blood thinner 07/13/17 06/12/25 History losartan 50 mg tablet 50 mg PO DAILY blood pressur e #90 10/27/21 06/13/25 Rx tabs levothyroxine 25 mcg tablet 25 mcg PO DAILY thyroid 06/13/25 History metoprolol succinate 100 mg 100 mg PO DAILY blood pres sure 04/13/25 06/13/25 History tablet,extended release 24 hr rosuvastatin 40 mg tablet 40 mg PO DAILY cholesterol 0 04/13/25 06/12/25 History Allergy/AdvReac Type Severity Reaction Status Date / Time hornet venom Allergy Anaphylaxis Verified 06/13/25 15:03 insect venom (yellow jacket) Allergy Anaphylaxis Verified 06/13/25 15:03 Penicillins Allergy Rash Verified 06/13/25 15:03 venom-wasp (Wasp Venom) Allergy Anaphylaxis Verified 06/13/25 15:03 Jzeergh-NSA-ZvY Reductase AdvReac muscle Verified 06/13/25 15:03 Inhibitor (Onlnflk-Jgb-Ldd weakness Reductase Inhibitor) tramadol AdvReac Other Verified 06/13/25 15:03 Family History Mother , age 55 sudden cardiac CAD (coronary artery disease) Sudden cardiac Father , age 77 Lung cancer Sister carotid artery surgery CAD (coronary artery disease) Surgical History Hx of left cataract extraction Hx of right cataract extraction History of esophagogastroduodenoscopy (EGD) Hx of colonoscopy History of carpal tunnel surgery of right wrist Hx of total knee arthroplasty Hx of total knee replacement History of appendectomy History of Wendy fundoplication Social History household members: spouse Smoking Status: Former smoker alcohol intake: current alcohol intake frequency: 0-2 drinks per day Alcohol type: wine substance use type: does not use caffeine: Yes Type: coffee Number of servings: 1 what type of physical activity do you participate in: none seatbelt use: always do you feel safe at home: Yes Review of Systems (Anesthesia) ROS Narrative System reviewed and no additional complaints, except as documented. 06/13/25 1633 <Electronically signed by Viet ledezma MD> Date _ Viet Srinivasan MD Cosigner Signature: Date CC: ~ Signed [facility] Work Phone: 1(750) 873-406807-18-2025 Procedure note [facility] Medical Records Department [address] [place] [address] Operative Report 06/13/25 1723 MR#: [id number] Acct: [id number] Name: ALLIE MARIE Rep #:[id number] : 1935 89 From: Akhil Leslie MD PCP: Dr. 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: No Type of Anesthesia: General RN Documented Start/Stop Times: Operation Date: 06/13/25 16:30 Case Time Into Pre-Op 06/13/25 14:40 Procedure Start Time: 17:03 Procedure Stop Time: 17:24 Select all DRAINS/GRAFTS/IMPLANTS that apply: None Estimated Blood Loss: 2cc Specimen collected: Yes Description of specimen(s) removed: Urine for cytology and biopsy of renal mass and right renal pelvis Description of surgery: This is an 89-year-old female who presented to my office with gross hematuria CTscan was done that demonstrated that there was blood coming from the right renalpelvic area in the right kidney so put on the schedule today for a cystoscopy and diagnostic retrograde pyelogram and ureteroscopy possiblebiopsy I suspect there might be a malignancy. Patient was taken back to the operating room after smooth induction of anesthesia she was placed indorsolithotomy position urethrovaginal area preppedand draped in usual fashion went in the bladder with a 21 British rigid cystourethroscope the bladder was normal there was blood inside the bladder but no tumors or stones within the bladder and urethra normal left and right ureter ureters were normal I then watched the ureters and there was bloody urine effluxing from the right ureteral orifice and cannulated the right ureteral orifice with a Pollick catheter we performed a retrograde pyelogramthe ureter was smooth all the way up into the kidney and then there appeared to be a filling defectin the renal pelvis and the right side I then put a wire up into the right kidney and over the wirewent in with a flexible ureteroscope was ableto get up into the right kidney and saw that there wasa mass that was filling the right renal pelvis 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 We then performed another retrograde pyelogram and again could see thefilling defect more clearly and then using a tipless basket a biopsy of the mass was taken we also sent got urine and the urine was sent forcytology and then I worked my way down the ureter I taken the mass and the mass was sent off as a specimen. We then remove the ureteroscope no stent was placedI will have her stop her aspirin or Plavix and whether get her set up for nephroureterectomy on the right side to treat and remove this cancerous mass. Surgical Findings: Large right renal pelvic mass appeared to be TCC bleeding Complications Complications: No Admit VTE Documentation VTE Present on Admission: No VTE Mechan Device Prophylaxis: SCD's VTE Pharm Prophylaxis ordered?: No 06/13/25 1727 Cosigner Signature (if applicable): CC: Dr. Angel Juan MD; Dr. Akhil Leslie MD~ Signed [facility]07-18-2025 Consult note [facility] Medical Records Department [address] [place] [address] Pre-Anesthesia Evaluation 06/13/25 1620 MR#: [id number] Acct: [id number] Name: ALLIE MARIE Rep #:[id number] : 1935 89 From: Viet Srinivasan MD PCP: Dr. Angel Juan MD Status :REG SD Y Race: C Location: [place] [address] ASA Classification* ASA Classification ASA Classification: 3 Assessment & Plan Anesthesia* Anesthesia Assessment Anesthesia Assessment: Discussed sedation and/or anesthesia options, risks, benefits, and alternatives with patient/parents/legal guardian/POA. Questions invited. The patient/parents/legal guardian/POA seems to understand and agrees to proceedwith anesthesia plan. Reviewed the physical assessment, medical history, allergy history and patient home medications list prior to surgery/procedure/anesthetic and documented any changes. Performed airway and anesthesia risk assessments. Anesthesia Type Anesthesia Type: General History Source History Obtained from:: Patient and Chart Anesthesia Focused Assessment* Temperature: 96.7 F Pulse Rate: 62 Blood Pressure: 138/60 Respiratory Rate: 14 Pulse Ox: 97 Oxygen Delivery Method: Room Air Airway Assessment Mouth opens: >3 cm Mallampati Score: III Teeth Condition: Caps/Crowns (Patient has about 4 crowns. They are tight.) Neck Range of motion (ROM): Full ROM Labs Anesthesia Preop lab: CBC WBC 7.1 K/mm3 (4.4-11.0) 04/14/25 05:39 04/14/25 RBC 3.03 M/mm3 (4.2-5.4) L 04/14/25 05:39 04/14/25 Hgb 9.4 g/dL (12.0-15.0) L 04/14/25 05:39 04/14/25 Hct 28.5 % (37-47) L 04/14/25 05:39 04/14/25 Plt Count 136 K/mm3 (150-450) L 04/14/25 05:39 04/14/25 CHEMISTRY Potassium 4.3 mmol/L (3.3-5.1) 04/14/25 05:39 04/14/25 Sodium 142 mmol/L (133-145) 04/14/25 05:39 04/14/25 Magnesium 1.9 mg/dL (1.5-2.2) 04/13/25 17:15 04/13/25 BUN 25 mg/dL (4-19) H 04/14/25 05:39 04/14/25 Creatinine 1.36 mg/dL (0.70-1.20) H 04/14/25 05:39 Glucose 91 mg/dL (70-99) 04/14/25 05:39 04/14/25 POC Glucose 143 mg/dL (70-110) H 04/21/19 23:02 04/21/19 TSH 6.240 uIU/mL (0.300-4.200) H 05/28/25 13:48 COAG PT 17.0 SECONDS (11.7-14.9) H 04/13/25 16:40 03/27 07/21 Pre-Assessment Diagnosis/Proposed Procedure Planned Operative Procedure(s): RIGHT URETEROSCOPY BIOPSY STENT, laser, cystoscopy with right retrograde pyelograms Anesthesia History Anesthesia History - harness tier: Anesthesia History - harness tier Hx Hospitalization Yes: SYNCOPE/SEVERE 06/12/25 16:21 DEHYDRATION AND UTI Any Problems With Anesthesia No 06/12/25 16:21 Cholinesterase deficiency No 06/12/25 16:21 You/Your Family Experience No 06/12/25 16:21 fever (hyperthermia) with Relationship Recent Exposure to Contagious No 06/13/25 15:06 Disease Does patient have nerve No 06/12/25 16:21 stimulator Patient instructed to have device shut off --Does patient have Pacemaker No 06/13/25 15:06 or ICD? When Was Last Pacemaker Check QUESTION #4 FULL TEXT: You/Your Family Experience fever (hyperthermia) with Anesthesia Last Oral Intake Last Oral intake: Last Oral Intake NPO since 21:00 06/13/25 15:06 Meds taken in AM with sips of No 06/13/25 15:06 water? Meds patient instructed to take am of surgery PONV PONV - harness tier: PONV - harness tier Female Yes 06/12/25 16:21 HX of Motion Sickness No 06/12/25 16:21 HX of N/V After Surgery No 06/12/25 16:21 Non-Smoker Yes 06/12/25 16:21 Duration of Surgery greater No 06/12/25 16:21 than 60 minutes Number of Risk Factors 2 06/12/25 16:21 PONV Score Moderate Risk 06/12/25 16:21 Height & Weight Height & Weight: Anesthesia: Height & Weight Height 5 ft 2 in 06/13/25 15:06 Weight: 54.3 kg 06/13/25 15:06 Body Mass Index (BMI) 21.9 06/13/25 15:06 Respiratory Assessment Respiratory Assessment - harness tier: Respiratory Tract Infection Hx - harness tier Hx Respiratory Tract Infection No 06/12/25 16:21 STOP Sleep Apnea STOP Sleep Apnea - harness tier: STOP Sleep Apnea - harness tier Hx Hypertension Yes: CONTROLLED WITH MEDS 06/12/25 16:21 Hx Sleep Apnea No 06/12/25 16:21 CPAP No 04/13/25 20:06 BIPAP No 04/13/25 20:06 Do you snore loudly (louder No 06/12/25 16:21 than talking or can be heard Do you often feel tired/ Yes 06/12/25 16:21 fatigued/ sleepy during daytime? Has anyone observed you stop No 06/12/25 16:21 breathing during sleep? STOP Results Positive 06/12/25 16:21 QUESTION #5 FULL TEXT : Do you snore loudly (louder than talking or can be heard through closeddoors)? 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 Specify any problems Hx of Preganancy in last 3 No 06/12/25 16:21 Months Nurse Filling Out Transfusion DSCHRIBER 06/12/25 16:21 & Questions: Date: 06/12/25 06/12/25 16:21 Time: 16:23 06/12/25 16:21 Patient unable to answer at this time (ie. confused, unrespo /Reproduction History /Reproductive History - harness tier: /Reproductive Hx- harness tier Hx Now No 06/12/25 16:21 Gestational Age (in weeks): EDC: Hx Hx Para Hx Section SAB No 06/12/25 16:21 Active Medications Active Medications: Current Medications Generic Name Dose Route Start Last Admin Trade Name Freq PRN Reason Stop Dose Admin Cefazolin Sodium 2 gm/ Sodium 110 mls @ 200 mls/hr 06/13/25 16:30 Chloride IV 06/13/25 17:02 INTRAOP ONE Lactated Ringer's 1,000 mls @ 15 mls/hr 06/13/25 14:45 06/13/25 15:18 IV 15 mls/hr .Q48H ROJAS Administration PFSH Medical History Wears glasses Open wound Thyroid disease Walker as ambulation aid Ambulates with cane Arthritis DVT (deep venous thrombosis) High cholesterol History of ulceration Non-smoker Shortness of breath on exertion History of echocardiogram Cardiology follow-up encounter UTI (urinary tract infection) Generalized weakness Essential (primary) hypertension Stenosis of right vertebral artery Obstructive hypertrophic cardiomyopathy Syncope and collapse History of CVA (cerebrovascular accident) (07/2017) Vertigo Depression History of TIA (transient ischemic attack) Meniere disease History of asthma Home Medications ?Medication ?Instructions ?Recorded ?Last Taken ?Type aspirin 81 mg chewable tablet 81 mg PO DAILY@0800 heal th 07/13/17 06/12/25 History maintenance clopidogrel 75 mg tablet 75 mg PO DAILY blood thinner 07/13/17 06/12/25 History losartan 50 mg tablet 50 mg PO DAILY blood pressur e #90 10/27/21 06/13/25 Rx tabs levothyroxine 25 mcg tablet 25 mcg PO DAILY thyroid 06/13/25 History metoprolol succinate 100 mg 100 mg PO DAILY blood pres sure 04/13/25 06/13/25 History tablet,extended release 24 hr rosuvastatin 40 mg tablet 40 mg PO DAILY cholesterol 0 04/13/25 06/12/25 History Allergy/AdvReac Type Severity Reaction Status Date / Time hornet venom Allergy Anaphylaxis Verified 06/13/25 15:03 insect venom (yellow jacket) Allergy Anaphylaxis Verified 06/13/25 15:03 Penicillins Allergy Rash Verified 06/13/25 15:03 venom-wasp (Wasp Venom) Allergy Anaphylaxis Verified 06/13/25 15:03 Nxvzezp-AXA-QxI Reductase AdvReac muscle Verified 06/13/25 15:03 Inhibitor (Lskcryc-Gnc-Gjh weakness Reductase Inhibitor) tramadol AdvReac Other Verified 06/13/25 15:03 Family History Mother , age 55 sudden cardiac CAD (coronary artery disease) Sudden cardiac Father , age 77 Lung cancer Sister carotid artery surgery CAD (coronary artery disease) Surgical History Hx of left cataract extraction Hx of right cataract extraction History of esophagogastroduodenoscopy (EGD) Hx of colonoscopy History of carpal tunnel surgery of right wrist Hx of total knee arthroplasty Hx of total knee replacement History of appendectomy History of Wendy fundoplication Social History household members: spouse Smoking Status: Former smoker alcohol intake: current alcohol intake frequency: 0-2 drinks per day Alcohol type: wine substance use type: does not use caffeine: Yes Type: coffee Number of servings: 1 what type of physical activity do you participate in: none seatbelt use: always do you feel safe at home: Yes Review of Systems (Anesthesia) ROS Narrative System reviewed and no additional complaints, except as documented. 06/13/25 1633 darien DAILY> Date _ Viet Srinivasan MD Cosigner Signature: Date CC: ~ Signed [facility]07-18-2025 History and physical note Author Akhil Leslie [facility] Note Date/Time June 13, 2025 7:24 pm [facility] Medical Records Department [address] [place] [id number] History & Physical Exam 06/13/25 0706 MR#: [id number] Acct: [id number] Name: ALLIE MARIE Rep #:[id number] : 1935 89 From: Akhil Leslie MD PCP: Dr. May Avitia MD [place] [facility] [place] - General General Date of Service: 06/13/25 Chief Complaint: Hemorrhaging HPI Narrative ALLIE MARIE, is a 89 F who presents with ongoing hemorrhaging from the right kidney CAT scan was done yesterday no clear source but there is blood in the collecting system in the right side plan to do cystoscopy right retrograde pyelogram right ureteroscopy possible biopsy fulguration and possible laser [facility] Medical History (Updated 06/12/25 @ 16:31 by Gogo Baker) Wears glasses Open wound Thyroid disease Walker as ambulation aid Ambulates with cane Arthritis DVT (deep venous thrombosis) High cholesterol History of ulceration Non-smoker Shortness of breath on exertion History of echocardiogram Cardiology follow-up encounter UTI (urinary tract infection) Generalized weakness Essential (primary) hypertension Stenosis of right vertebral artery Obstructive hypertrophic cardiomyopathy Syncope and collapse History of CVA (cerebrovascular accident) (07/2017) Vertigo Depression History of TIA (transient ischemic attack) Meniere disease History of asthma Home Medications ?Medication ?Instructions ?Recorded ?Last Taken ?Type aspirin 81 mg chewable tablet 81 mg PO DAILY@0800 heal th 07/13/17 06/12/25 History maintenance clopidogrel 75 mg tablet 75 mg PO DAILY blood thinner 07/13/17 06/12/25 History losartan 50 mg tablet 50 mg PO DAILY blood pressur e #90 10/27/21 04/12/25 Rx tabs levothyroxine 25 mcg tablet 25 mcg PO DAILY thyroid 04/12/25 History metoprolol succinate 100 mg 100 mg PO DAILY blood pres sure 04/13/25 04/12/25 History tablet,extended release 24 hr rosuvastatin 40 mg tablet 40 mg PO DAILY cholesterol 0 04/13/25 04/12/25 History Allergy/AdvReac Type Severity Reaction Status Date / Time hornet venom Allergy Anaphylaxis Verified 06/12/25 16:19 insect venom (yellow jacket) Allergy Anaphylaxis Verified 06/12/25 16:19 Penicillins Allergy Rash Verified 06/12/25 16:19 venom-wasp (Wasp Venom) Allergy Anaphylaxis Verified 06/12/25 16:19 Turcxbu-HKA-AxF Reductase AdvReac muscle Verified 06/12/25 16:19 Inhibitor (Ujnetow-Kky-Hpf weakness Reductase Inhibitor) tramadol AdvReac Other Verified 06/12/25 16:19 Family History Mother , age 55 sudden cardiac CAD (coronary artery disease) Sudden cardiac Father , age 77 Lung cancer Sister carotid artery surgery CAD (coronary artery disease) Surgical History (Updated 06/12/25 @ 16:31 by Gogo Baker) Hx of left cataract extraction Hx of right cataract extraction History of esophagogastroduodenoscopy (EGD) Hx of colonoscopy History of carpal tunnel surgery of right wrist Hx of total knee arthroplasty Hx of total knee replacement History of appendectomy History of Wendy fundoplication Social History (Updated 04/13/25 @ 19:[address] Lilia Tom MD) household members: spouse Smoking Status: Former smoker alcohol intake: current alcohol intake frequency: 0-2 drinks per day Alcohol type: wine substance use type: does not use caffeine: Yes Type: coffee Number of servings: 1 what type of physical activity do you participate in: none seatbelt use: always do you feel safe at home: Yes 06/13/25705 <Electronically signed by Akhil Leslie MD> Cosigner Signature (if applicable): CC: Dr. May Avitia MD; Dr. Akhil Leslie MD~ Signed [facility] Work Phone: 1(593) 171-939007-18-2025 [facility] Medical Records Department [address] [place] [address] History Physical Exam 06/13/25705 MR#: [id number] Acct: [id number] Name: ALLIE MARIE Rep #: [id number] : 1935 89 From: Akhil Leslie MD PCP: Dr. May Avitia MD [place] [facility] [place] [facility] HPI - General General Date of Service: 06/13/25 Chief Complaint: Hemorrhaging HPI Narrative ALLIE MARIE, is a 89 F who presents with ongoing hemorrhaging from the right kidney CAT scan was done yesterday no clear source but there is blood in the collecting system in the right side plan to do cystoscopy right retrograde pyelogram right ureteroscopy possible biopsy fulguration and possible laser [facility] Medical History (Updated 06/12/25 @ 16:31 by Gogo Baker) Wears glasses Open wound Thyroid disease Walker as ambulation aid Ambulates with cane Arthritis DVT (deep venous thrombosis) High cholesterol History of ulceration Non-smoker Shortness of breath on exertion History of echocardiogram Cardiology follow-up encounter UTI (urinary tract infection) Generalized weakness Essential (primary) hypertension Stenosis of right vertebral artery Obstructive hypertrophic cardiomyopathy Syncope and collapse History of CVA (cerebrovascular accident) (07/2017) Vertigo Depression History of TIA (transient ischemic attack) Meniere disease History of asthma Home Medications ???Medication ???Instructions ???Recorded ???Last Taken ???Type aspirin 81 mg chewable tablet 81 mg PO DAILY@0800 health 7 06/12/25 History maintenance clopidogrel 75 mg tablet 75 mg PO DAILY blood thinner 07/1306/12/25 History losartan 50 mg tablet 50 mg PO DAILY blood pressure #90 10/27/21 04/12/25 Rx tabs levothyroxine 25 mcg tablet 25 mcg PO DAILY thyroid 04/13/25 0 04/12/25 History metoprolol succinate 100 mg 100 mg PO DAILY blood pressure 04/12/25 History tablet,extended release 24 hr rosuvastatin 40 mg tablet 40 mg PO DAILY cholesterol 5 04/12/25 History Allergy/AdvReac Type Severity Reaction Status Date / Time hornet venom Allergy Anaphylaxis Verified 06/12/25 16:19 insect venom (yellow jacket) Allergy Anaphylaxis Verified 06/12/25 16:19 Penicillins Allergy Rash Verified 06/12/25 16:19 venom-wasp (Wasp Venom) Allergy Anaphylaxis Verified 06/12/25 16:19 Chuycod-QEX-SwZ Reductase AdvReac muscle Verified 06/12/25 16:19 Inhibitor (Dkozvfc-Ofn-Gan weakness Reductase Inhibitor) tramadol AdvReac Other Verified 06/12/25 16:19 Family History Mother , age 55 sudden cardiac CAD (coronary artery disease) Sudden cardiac Father , age 77 Lung cancer Sister carotid artery surgery CAD (coronary artery disease) Surgical History (Updated 06/12/25 @ 16:31 by Gogo Baker) Hx of left cataract extraction Hx of right cataract extraction History of esophagogastroduodenoscopy (EGD) Hx of colonoscopy History of carpal tunnel surgery of right wrist Hx of total knee arthroplasty Hx of total knee replacement History of appendectomy History of Wendy fundoplication Social History (Updated 04/13/25 @ 19:[address] Lilia Tom MD) household members: spouse Smoking Status: Former smoker alcohol intake: current alcohol intake frequency: 0-2 drinks per day Alcohol type: wine substance use type: does not use caffeine: Yes Type: coffee Number of servings: 1 what type of physical activity do you participate in: none seatbelt use: always do you feel safe at home: Yes 06/13/25 07 Cosigner Signature (if applicable): CC: Dr. May Avitia MD; Dr. Akhil Leslie [facility] Radiology Diagnostic study note [facility] Imaging Services [address] [place], [place] [id number] Abdomen/Pelvis without Cont MR#: [id number] Acct: [id number] Name: ALLIE MARIE Rep #: [id number] : 1935 F 89 From: Tono Gutiérrez MD PCP: Dr. May Avitia MD Status: REG CLI Study:Abdomen/Pelvis without Cont Date of Exa m: 06/12/25 Exam# [id number] Ordering Dr: Alba Leslie MD PROCEDURE: ABDOMEN/PELVIS WITHOUT CONT 06/12/2025 REASON FOR EXAM: GROSS HEMATURIA TECHNIQUE: ABDOMEN/PELVIS WITHOUT CONT Noncontrast technique limits evaluation of the abdominal and pelvic viscera. Coronal and Sagittal reconstruction series were provided. One or more dose reduction techniques were used (e.g., Automated exposure control, adjustment of the mA and/or kV according to patient size, use of iterative reconstruction technique). RADIATION DOSE SUMMARY: CTDlvol: 5.93 mGy DLP: 243.75 mGycm COMPARISON: None FINDINGS: Lung bases: Lung bases are clear. Coronary artery calcification. Liver: Normal size. No obvious mass. Gallbladder: Surgically absent. Spleen: Multiple calcified splenic granulomas. Pancreas: Diffuse fatty atrophy. Adrenals: Unremarkable Kidneys: Moderate degree of right hydronephrosis. Findings suggestive of right ureteropelvic junction obstruction. No calcified renal calculus is seen. Bladder: Unremarkable Reproductive Organs: Fibroid uterus. Bowel: Colonic diverticulosis without diverticulitis. Appendix: Prior appendectomy. Lymph nodes: Unremarkable. Vasculature: Mild diffuse atherosclerotic calcifications are noted. Peritoneum / Retroperitoneum: Unremarkable Bones: Degenerative changes of the spine. Levoconvex scoliosis. CT/Abdomen/Pelvis without Cont IMPRESSION: Right hydronephrosis. Possible right ureteropelvic junction obstruction. No renal calcification or ureteral calcification is seen. Reading Location: [place] [address] CC: Dr. May Avitia MD; Dr. Akhil Leslie MD ~ Save All Operator: Signed [facility]05-20-2025 Discharge summary Author Ken Parker [facility] Note Date/Time April 15, 2025 10:42 am [facility] Medical Records Department [address] [place] [address] Instructions for Home/Discharge Instructions 04/14/25 1536 MR#: [id number] Acct: [id number] Name: ALLIE MARIE Rep #:[id number] : 1935 89 From: Ken Parker DO PCP: Dr. May Avitia MD Status:ADM IN Discharge Instructions Diet Discharge Diet: No restrictions DC O2, CPAP, BIPAP needs Home O2 Discharge instructions: No Dressing / Incision Discharge Activity: Return to Normal Activity and Use Walker Weight Bearing Status: Full weight bearing Follow Up Care Test Results: Test results from this visit will be discussed in further detail at your follow- up appointment, if applicable. Discharge Plan Admission Admit Date/Time: 04/13/25 18:44 Primary Reason for Your Visit: Acute cystitis, acute debility Attending Provider: Ken Parker Primary Care Provider: May Avitia Consulting Providers: Lilia Tom Discharge Orders/Prescriptions Prescriptions: New cefdinir 300 mg capsule 300 mg PO BID Qty: 14 0RF Rx Instructions: Start on 04/15/2025 Continued clopidogrel 75 MG tablet 75 mg PO DAILY aspirin 81 MG tablet,chewable 81 mg PO DAILY@0800 metoprolol succinate 100 mg tablet extended release 24 hr 100 mg PO DAILY levothyroxine 25 mcg tablet 25 mcg PO DAILY rosuvastatin 40 mg tablet 40 mg PO DAILY losartan 50 mg tablet 50 mg PO DAILY Qty: 90 3RF Referrals / Follow Up: May Avitia MD [Primary Care Provider] - Within 2 Weeks Disposition Disposition (needs filled in before D/C Order can be placed): Home Health Service 04/14/25 1546<Electronically signed by Ken Parker DO>Ken Parker DO CC: Dr. May Avitia MD; Dr. Lilia Tom MD ~ Signed ADDENDUM by Dr. Ken Parker DO on 04/15/25 at 1042 Date of discharge 04/15/25 04/15/25 1042<Electronically signed by Ken Parker DO>Ken Parker DO cc: Dr. May Avitia MD; Dr. Lilia Tom MD ~* Signed [facility] Work Phone: 1(301) 633-545805-20-2025 Discharge summary [facility] Medical Records Department [address] [place] [address] Instructions for Home/Discharge Instructions 04/14/25 1536 MR#: [id number] Acct: [id number] Name: ALLIE MARIE Rep #:[id number] : 1935 89 From: Ken Parker DO PCP: Dr. May Avitia MD Status:ADM IN Discharge Instructions Diet Discharge Diet: No restrictions DC O2, CPAP, BIPAP needs Home O2 Discharge instructions: No Dressing / Incision Discharge Activity: Return to Normal Activity and Use Walker Weight Bearing Status: Full weight bearing Follow Up Care Test Results: Test results from this visit will be discussed in further detail at your follow- up appointment, if applicable. Discharge Plan Admission Admit Date/Time: 04/13/25 18:44 Primary Reason for Your Visit: Acute cystitis, acute debility Attending Provider: Ken Parker Primary Care Provider: May Avitia Consulting Providers: Lilia Tom Discharge Orders/Prescriptions Prescriptions: New cefdinir 300 mg capsule 300 mg PO BID Qty: 14 0RF Rx Instructions: Start on 04/15/2025 Continued clopidogrel 75 MG tablet 75 mg PO DAILY aspirin 81 MG tablet,chewable 81 mg PO DAILY@0800 metoprolol succinate 100 mg tablet extended release 24 hr 100 mg PO DAILY levothyroxine 25 mcg tablet 25 mcg PO DAILY rosuvastatin 40 mg tablet 40 mg PO DAILY losartan 50 mg tablet 50 mg PO DAILY Qty: 90 3RF Referrals / Follow Up: May Avitia MD [Primary Care Provider] - Within 2 Weeks Disposition Disposition (needs filled in before D/C Order can be placed): Home Health Service 04/14/25 1546Ken Parker DO CC: Dr. May Avitia MD; Dr. Lilia Tom MD ~ Signed ADDENDUM by Dr. Ken Parker DO on 04/15/25 at 1042 Date of discharge 04/15/25 04/15/25 1042Ken Parker DO cc: Dr. May Avitia MD; Dr. Lilia Tom MD ~* Signed [facility]05-19-2025 Progress note Author Ken Parker [facility] Note Date/Time April 14, 2025 5:27p m [facility] Medical Records Department [address] [place] [address] Progress Note - Hospitalist 04/14/25 1725 MR#: [id number] Acct: [id number] Name: ALLIE MARIE Rep #:[id number] : 1935 89 From: Ken Parker DO PCP: Dr. May Avitia MD Status:ADM IN Location: [place] [id number] Reason for Visit Reason for Visit: Diagnoses Urinary tract infection, site not specified (04/13/25) Subjective Subjective Patient was seen and examined today, she is able to walk 60 feet with minimal assistance, patient wanted to go home today and I had discharge paperwork ready but the daughters feel that she needs to stay in the hospital 1 more night. Objective Data Objective Data Vital Signs: Vital Signs Temp Pulse Resp BP Pulse Ox O2 Del Method 97.9 F 73 16 133/59 H 96 Room Air 04/14/25 14:47 04/14/25 14:47 04/14/25 14:47 04/14/25 14:47 04/14/25 14:47 04/14/25 14:47 Oxygen Delivery Method Room Air Weight: 51.7 kg Body Mass Index (BMI) 20.8 Intake & Output: Intake and Output for Last 24 Hours 04/12/25 04/13/25 04/14/25 23:59 23:59 23:59 Intake Total 1050 / 1050 1170 / 1170 Output Total 0 / 0 Balance 1050 / 1050 1170 / 1170 Lab / Micro Data 04/14/25 05:39 04/14/25 05:39 Labs: Laboratory Results - last 24 hr 04/13/25 17:15: Magnesium 1.9, Troponin T Hi Sens 2 Hr 72 H* 04/13/25 20:23: Troponin T Hi Sens 4Hr 87 H* 04/14/25 05:39: WBC 7.1, RBC 3.03 L, Hgb 9.4 L, Hct 28.5 L, MCV 94.1, MCH 31.0, MCHC 33.0, RDW Std Deviation 45.0 H, RDW Coeff of Krystyna 13.1, Plt Count 136 L, MPV9.5, Immature Gran % (Auto) 0.600, Neut % (Auto) 56.3, Lymph % (Auto) 28.9, [place]% (Auto) 11.1 H, Eos % (Auto) 2.5, Baso % (Auto) 0.6, Absolute Neuts (auto) 4.0,Absolute Lymphs (auto) 2.06, Nucleated RBC % 0, Sodium 142, Potassium 4.3, Chloride 116 H, Carbon Dioxide 17.9 L, Anion Gap 8, BUN 25 H, Creatinine 1.36 H, Estim Creat Clear Calc 23.05 L, Est GFR (MDRD) Non-Af 38 L, BUN/Creatinine Ratio18.5, Glucose 91, Calcium 8.6, Total Bilirubin 0.47, AST 138 H, ALT 102 H, Alkaline Phosphatase 42, Total Protein 5.1 L, Albumin 3.1 L, Globulin 2.0 L, Albumin/Globulin Ratio 1.6, Triglycerides 115, Cholesterol 84, LDL Cholesterol, Calc 33, VLDL Cholesterol 23, HDL Cholesterol 28 L, Cholesterol/HDL Ratio 3.01 Micro: Microbiology 04/13/25 16:15 Urine, Catheterized Urine Culture - Preliminary GNR lactose quality assurance assistant Radiography Diagnostic Testing: Radiology Impression Echocardiogram 04/13/25 19:55 Interpretation Summary Normal LV size. Severe eccentric left ventricular hypertrophy. Resting LV gradient 132 mmHg. Stage 1 diastolic dysfunction. The left ventricular ejection fraction is 75 %.+ Ordering Physician: Lilia Tom Referring Physician: May Avitia M.D. Performed By: Amira Sky RDCS Physical Exam Const alert, oriented x3, no apparent distress and healthy appearing Constitutional Narrative: Patient appears her stated age General Appearance: cooperative, well kempt and well developed Orientation / Consciousness: awake, oriented to person, oriented to place and oriented to time HEENT normocephalic, head/scalp atraumatic and moist oral mucous membranes Eyes PERRL, EOMs intact bilaterally and conjunctivae normal Neck supple, no JVD, thyroid normal and no carotid bruits General: trachea midline Resp normal respiratory effort, no retractions, no use of accessory muscles and clearto auscultation bilaterally Auscultation: Negative for rales, rhonchi or wheezes Cardio regular rate, regular rhythm, S1 normal heart sound, S2 normal heart sound, no murmurs, no rub and no gallops GI normal to inspection, nondistended, normoactive bowel sounds, soft to palpation,non-tender and non-distended Extremity no clubbing, cyanosis or edema Skin no rashes or lesions noted General Skin Exam: no breakdown Neuro oriented x3, CN's II-XII intact bilaterally, moves all extremities, no focal motor deficits and no sensory deficits noted Sensorium / Orientation: awake and alert Speech: speech normal Psych affect normal Assessment & Plan Assessment/Plan (1) UTI (urinary tract infection): PLAN: Plan 1. Acute cystitis-patient will remain on IV Rocephin for now, cultures are pending #2 acute debility-secondary to dehydration and acute cystitis, PT and OT will continue to see the patient #3 dehydration-patient's creatinine is improved today, I do not feel she needs any more fluids administered. #4 essential hypertension-patient will remain on her present medication Total clinical time spent by myself addressing the patient's medical issues, reviewing all of her data, and collaborating with patient's care team: 35-minute Charges/Coding Visit Charges Inpatient E&M: 05194 Subs Hosp L2 04/14/25 1727 <Electronically signed by Ken Parker DO> Cosigner Signature (if applicable): CC: ~ Signed [facility] Work Phone: 1(457) 452-392505-19-2025 Consult note Author Guillermina Sutherland [facility] Note Date/Time April 14, 2025 4:39p m [facility] Medical Records Department [address] [place] [address] Counseling Note - Pharmacy 04/14/25 4011 MR#: [id number] Acct: [id number] Name: ALLIE MARIE Rep #:[id number] : 1935 89 From: Guillermina Sutherland PCP: Dr. May Avitia MD Status:ADM IN Y [facility] Service has performed discharge medication reconciliation and counseling for this patient. 1. CEFDINIR 300MG PO BID X 7 DAYS The patient's discharge medication list was reviewed for discrepancies and discrepancies were resolved. The patient was counseled on the following discharge medications and changes in medications for homegoing were reviewed. The Reason for Use, instructions for use, and potential side effects were reviewed for all new medications. The patient's questions regarding all of their medications were answered. The patient was able to verbally demonstrate an understanding of their dischargemedications. Medications at Discharge Home Medications aspirin 81 mg chewable tablet 81 mg PO DAILY@0800 health maintenance 07/13/17 clopidogrel 75 mg tablet 75 mg PO DAILY blood thinner 07/13/17 losartan 50 mg tablet 50 mg PO DAILY blood pressure #90 tabs 10/27/21 levothyroxine 25 mcg tablet 25 mcg PO DAILY thyroid 04/13/25 metoprolol succinate 100 mg tablet,extended release 24 hr 100 mg PO DAILY blood pressure 04/13/25 rosuvastatin 40 mg tablet 40 mg PO DAILY cholesterol 04/13/25 cefdinir 300 mg capsule 300 mg PO BID #14 caps 04/14/25 04/14/25 5639 <Electronically signed by Guillermina Sutherland> Date _ Guillermina Vidal Signature (if applicable): Date CC: ~ Signed [facility] Work Phone: 1(314) 394-612005-19-2025 Progress note [facility] Medical Records Department [address] [place] [address] Progress Note - Hospitalist 05/19/25 1725 MR#: [id number] Acct: [id number] Name: ALLIE MARIE Rep #:[id number] : 1935 89 From: Ken Parker DO PCP: Dr. May Avitia MD Status:ADM IN Location: [place] [address] Reason for Visit Reason for Visit: Diagnoses Urinary tract infection, site not specified (04/13/25) Subjective Subjective Patient was seen and examined today, she is able to walk 60 feet with minimal assistance, patient wanted to go home today and I had discharge paperwork ready but the daughters feel that she needs to stay in the hospital 1 more night. Objective Data Objective Data Vital Signs: Vital Signs Temp Pulse Resp BP Pulse Ox O2 Del Method 97.9 F 73 16 133/59 H 96 Room Air 04/14/25 14:47 04/14/25 14:47 04/14/25 14:47 04/14/25 14:47 04/14/25 14:47 04/14/25 14:47 Oxygen Delivery Method Room Air Weight: 51.7 kg Body Mass Index (BMI) 20.8 Intake & Output: Intake and Output for Last 24 Hours 04/12/25 04/13/25 04/14/25 23:59 23:59 23:59 Intake Total 1050 / 1050 1170 / 1170 Output Total 0 / 0 Balance 1050 / 1050 1170 / 1170 Lab / Micro Data 04/14/25 05:39 04/14/25 05:39 Labs: Laboratory Results - last 24 hr 04/13/25 17:15: Magnesium 1.9, Troponin T Hi Sens 2 Hr 72 H* 04/13/25 20:23: Troponin T Hi Sens 4Hr 87 H* 04/14/25 05:39: WBC 7.1, RBC 3.03 L, Hgb 9.4 L, Hct 28.5 L, MCV 94.1, MCH 31.0, MCHC 33.0, RDW Std Deviation 45.0 H, RDW Coeff of Krystyna 13.1, Plt Count 136 L, MPV9.5, Immature Gran % (Auto) 0.600, Neut% (Auto) 56.3, Lymph % (Auto) 28.9, [place]% (Auto) 11.1 H, Eos % (Auto) 2.5, Baso % (Auto) 0.6, Absolute Neuts (auto) 4.0,Absolute Lymphs (auto) 2.06, Nucleated RBC % 0, Sodium 142, Potassium 4.3, Chloride 116 H, Carbon Dioxide 17.9 L, Anion Gap 8, BUN 25 H, Creatinine 1.36 H, Estim Creat Clear Calc 23.05 L, Est GFR (MDRD) Non-Af 38 L, BUN/Creatinine Ratio18.5, Glucose 91, Calcium 8.6, Total Bilirubin 0.47, AST 138 H, ALT 102 H, Alkaline Phosphatase 42, Total Protein 5.1 L, Albumin 3.1 L, Globulin 2.0 L, Albumin/Globulin Ratio 1.6, Triglycerides 115, Cholesterol 84, LDL Cholesterol, Calc 33, VLDL Cholesterol 23, HDL Cholesterol 28 L, Cholesterol/HDL Ratio 3.01 Micro: Microbiology 04/13/25 16:15 Urine, Catheterized Urine Culture - Preliminary GNR lactose quality assurance assistant Radiography Diagnostic Testing: Radiology Impression Echocardiogram 04/13/25 19:55 Interpretation Summary Normal LV size. Severe eccentric left ventricular hypertrophy. Resting LV gradient 132 mmHg. Stage 1 diastolic dysfunction. The left ventricular ejection fraction is 75 %.+ Ordering Physician: Lilia Tom Referring Physician: May Avitia M.D. Performed By: Amira Sky RDCS Physical Exam Const alert, oriented x3, no apparent distress and healthy appearing Constitutional Narrative: Patient appears her stated age General Appearance: cooperative, well kempt and well developed Orientation / Consciousness: awake, oriented to person, oriented to place and oriented to time HEENT normocephalic, head/scalp atraumatic and moist oral mucous membranes Eyes PERRL, EOMs intact bilaterally and conjunctivae normal Neck supple, no JVD, thyroid normal and no carotid bruits General: trachea midline Resp normal respiratory effort, no retractions, no use of accessory muscles and clearto auscultation bilaterally Auscultation: Negative for rales, rhonchi or wheezes Cardio regular rate, regular rhythm, S1 normal heart sound, S2 normal heart sound, no murmurs, no rub and no gallops GI normal to inspection, nondistended, normoactive bowel sounds, soft to palpation,non-tender and non-distended Extremity no clubbing, cyanosis or edema Skin no rashes or lesions noted General Skin Exam: no breakdown Neuro oriented x3, CN's II-XII intact bilaterally, moves all extremities, no focal motor deficits and no sensory deficits noted Sensorium / Orientation: awake and alert Speech: speech normal Psych affect normal Assessment & Plan Assessment/Plan (1) UTI (urinary tract infection): PLAN: Plan 1. Acute cystitis-patient will remain on IV Rocephin for now, cultures are pending #2 acute debility-secondary to dehydration and acute cystitis, PT and OT will continue to see the patient #3 dehydration-patient's creatinine is improved today, I do not feel she needs any more fluids administered. #4 essential hypertension-patient will remain on her present medication Total clinical time spent by myself addressing the patient's medical issues, reviewing all of her data, and collaborating with patient's care team: 35-minute Charges/Coding Visit Charges Inpatient E&M: 36830 Subs Hosp L2 04/14/25 1727 Cosigner Signature (if applicable): CC: ~ Signed [facility]05-19-2025 Consult note [facility] Medical Records Department [address] [place] [address] Counseling Note - Pharmacy 04/14/25 1638 MR#: [id number] Acct: [id number] Name: ALLIE MARIE Rep #:[id number] : 1935 89 From: Guillermina Sutherland PCP: Dr. May Avitia MD Status:ADM IN Y Location: [facility] [id number] 1 Pharmacy [facility] Pharmacy Service has performed discharge medication reconciliation and counseling for this patient. 1. CEFDINIR 300MG PO BID X 7 DAYS The patient's discharge medication list was reviewed for discrepancies and discrepancies were resolved. The patient was counseled on the following discharge medications and changes in medications for homegoing were reviewed. The Reason for Use, instructions for use, and potential side effects were reviewed for all new medications. The patient's questions regarding all of their medications were answered. The patient was able to verbally demonstrate an understanding of their dischargemedications. Medications at Discharge Home Medications aspirin 81 mg chewable tablet 81 mg PO DAILY@0800 health maintenance 07/13/17 clopidogrel 75 mg tablet 75 mg PO DAILY blood thinner 07/13/17 losartan 50 mg tablet 50 mg PO DAILY blood pressure #90 tabs 10/27/21 levothyroxine 25 mcg tablet 25 mcg PO DAILY thyroid 04/13/25 metoprolol succinate 100 mg tablet,extended release 24 hr 100 mg PO DAILY blood pressure 04/13/25 rosuvastatin 40 mg tablet 40 mg PO DAILY cholesterol 04/13/25 cefdinir 300 mg capsule 300 mg PO BID #14 caps 04/14/25 04/14/25 1639 Date _ Guillermina Vidal Signature (if applicable): Date CC: ~ Signed [facility]05-19-2025 [facility] Medical Records Department [address] [place] [address] Discharge Summary 04/14/25 1546 MR#: [id number] Acct: [id number] Name: ALLIE MARIE Rep #: [id number] : 1935 89 From: Ken Parker DO PCP: Dr. May Avitia MD Status:DIS IN Location: [facility] [id number] Providers Date of Admission: 04/13/25 Date of Discharge: 04/15/25 Primary Care Physician: Dr. May Avitia MD Reason For Visit: ADULT FTT, UTI, ELEVATED TROP Diagnosis Discharge Diagnosis (1) UTI (urinary tract infection): Status: Acute Code(s): N39.0 - Urinary tract infection, site not specified Plan 1. Acute cystitis from E. coli #2 acute weakness secondary to #1 #3 elevated troponin-etiology unclear #4 hypothyroidism #5 essential hypertension #6 chronic kidney disease stage III b Medications at Discharge Home Medications aspirin 81 mg chewable tablet 81 mg PO DAILY@0800 health maintenance 07/13/17 clopidogrel 75 mg tablet 75 mg PO DAILY blood thinner 07/13/17 losartan 50 mg tablet 50 mg PO DAILY blood pressure #90 tabs 10/27/21 levothyroxine 25 mcg tablet 25 mcg PO DAILY thyroid 04/13/25 metoprolol succinate 100 mg tablet,extended release 24 hr 100 mg PO DAILY blood pressure 04/13/25 rosuvastatin 40 mg tablet 40 mg PO DAILY cholesterol 04/13/25 cefdinir 300 mg capsule 300 mg PO BID #14 caps 04/14/25 Hospital Course Operations None Procedures None Summary of Care Provided Minutes Spent on Discharge: 31 Hospital Course: This 89-year-old white female was seen in the emergency room at [facility] with complaints of generalized weakness x 1 week. Patient admitted that she was not eating or drinking well. Labs were obtained and were remarkable for hemoglobin of 11.2, creatinine of 1.61, BUN of 27, AST of 170, ALT of 127, and glucose of 165. Troponin was elevated at 86, urinalysis was positive for 25-50 WBCs, 25-50 RBCs, and +4 bacteria. Patient had positive urine nitrite. Second troponin was elevated at 72. Patient was felt to have a UTI and she was admitted to PCU, given IV fluids and IV antibiotics. Patient was seen in consultation by PT and OT, initially patient did well, family requested that she stay a second night in the hospital however and I accommodated this wish. On 04/15/2025, patient was seen and examined: On examination she appeared in good health and spirits, she does not appear to be in any distress. Vital signs as documented. Skin warm and dry and without overt rashes. Neck without JVD, thyroid appears normal, trachea is midline, neck is supple. Lungs clear, normal air movement was noted. Heart exam notable for regular rhythm, normal sounds and absence of murmurs, rubs or gallops. Abdomen unremarkable and without evidence of organomegaly, masses, or abdominal aortic enlargement, bowel sounds are present in all 4 quadrants, no abdominal tenderness was noted. Extremities nonedematous, no cyanosis was noted, no clubbing was noted. Neuro: Cranial nerves II through XII are grossly intact, no focal motor deficits were noted, sensation to light touch and pinprick is intact, motor exam 5/5 throughout. Psych: Patient is alert and oriented x3, she does not appear anxious or depressed, she does not appear agitated. Patient appears stable for discharge home on 04/15/2025 Weight / BMI Weight Weight: 53.2 kg Body Mass Index (BMI) 21.4 ABG / Lab / Microbiology Data 04/14/25 05:39 04/14/25 05:39 Laboratory: Laboratory Results - last 24 hr 04/13/25 15:15: Sodium 142, Potassium 3.9, Chloride 110 H, Carbon Dioxide 20.7 L, Anion Gap 12, BUN 27 H, Creatinine 1.61 H, Estim Creat Clear Calc 19.47 L, Est GFR (MDRD) Non-Af 31 L, BUN/Creatinine Ratio 16.6, Glucose 165 H, Calcium 9.5, Magnesium 2.4 H, Total Bilirubin 0.86, AST 170 H, ALT 127 H, Alkaline Phosphatase 53, Troponin T High Sens 86 H*, Total Protein 6.2, Albumin 3.8, Globulin 2.4, Albumin/Globulin Ratio 1.6, TSH 4.720 H, Free T4 1.00, Free T3 pg/dL 1.6 L 04/13/25 16:15: PT Cancelled, INR Cancelled, Urine Color Yellow, Urine Clarity Sl. Cloudy, Urine pH 6.0, Ur Specific [place] 1.020, Urine Protein 100 H, Urine Glucose (UA) Normal, Urine Ketones Negative, Urine Occult Blood 250 H, Urine Nitrite Positive H, Urine Bilirubin Negative, Urine Urobilinogen 4 H, Ur Leukocyte Esterase 500 H, Urine RBC 25-50 SEEN, Urine WBC 25-50 SEEN, Ur Squamous Epith Cells 0-5 SEEN, Ur Renal Epithelial Cell 0-5 SEEN, Urine Bacteria 4+, Fine Granular Casts 0-5 SEEN, Coarse Granular Casts 0-5 SEEN, Urine Mucus 0 SEEN 04/13/25 16:40: PT 17.0 H, INR 1.4 04/13/25 17:15: Magnesium 1.9, Troponin T Hi Sens 2 Hr 72 H* 04/13/25 20:23: Troponin T Hi Sens 4Hr 87 H* 04/14/25 05:39: WBC 7.1, RBC 3.03 L, Hgb 9.4 L, Hct 28.5 L, MCV 94.1, MCH 31.0, MCHC 33.0, RDW Std Deviation 45.0 H, RDW Coeff of Krystyna 13.1, Plt Count 136 L, MPV 9. (more content not included)...[facility]05-19-2025 Discharge summary Author Miladis Sánchez [facility] Note Date/Time April 13, 2025 11:28 pm [facility] Medical Records Department [address] [place] [address] Emergency Department Summary 04/13/25 MR#: [id number] Acct: [id number] Name: ALLIE MARIE Rep #:[id number] : 1935 89 From: Miladis PICKETT PCP: Dr. May Avitia MD Status:ADM IN Location: [address] <PIYUSH Sapp - Last Filed: 04/13/25 18:48> History of Present Illness Chief Complaint: Weakness Narrative Narrative: Please presenting today with her daughter due to concerns for generalized weakness that has been ongoing over the past week. Patient admits that she has not been eating or drinking much throughout the day, she is eating maybe a sandwich in total and drinking very little. She does appear dehydrated. She reports that she just does not have much of an appetite. She has been feeling lightheaded with ambulating and has felt weak in her legs which is making it hard for her to ambulate. She also reports feeling intermittently short of breath. She denies currently feeling short of breath. She denies any history of blood clots or recent surgery/travel/immobilization. She denies any recent illness, fevers, chills, abdominal pain, nausea, vomiting, and chest pain. She denies flulike symptoms. She has a PMH of CVA, HTN, and HLD. PFSH <PIYUSH Sapp - Last Filed: 04/13/25 18:48> [facility] Medical History Essential (primary) hypertension Stenosis of right vertebral artery Hyperlipidemia Obstructive hypertrophic cardiomyopathy Syncope and collapse History of CVA (cerebrovascular accident) (07/2017) Vertigo Depression Obstructive sleep apnea History of TIA (transient ischemic attack) Meniere disease History of asthma Home Medications ?Medication ?Instructions ?Recorded ?Last Taken ?Type aspirin 81 mg chewable tablet 81 mg PO DAILY@0800 heal th 07/13/17 04/12/25 History maintenance clopidogrel 75 mg tablet 75 mg PO DAILY blood thinner 07/13/17 04/12/25 History losartan 50 mg tablet 50 mg PO DAILY #90 tabs 12/1704/12/25 Rx levothyroxine 25 mcg tablet 25 mcg PO DAILY 04/13/25 0 04/12/25 History metoprolol succinate 100 mg 100 mg PO DAILY 04/13/25 0 04/12/25 History tablet,extended release 24 hr rosuvastatin 40 mg tablet 40 mg PO DAILY 04/13/2503/27 History Allergy/AdvReac Type Severity Reaction Status Date / Time hornet venom Allergy Anaphylaxis Verified 04/13/25 14:28 insect venom (yellow jacket) Allergy Anaphylaxis Verified 04/13/25 14:28 Penicillins Allergy Rash Verified 04/13/25 14:28 venom-wasp (Wasp Venom) Allergy Anaphylaxis Verified 04/13/25 14:28 Ejogxpd-VOJ-WrT Reductase AdvReac muscle Verified 04/13/25 21:07 Inhibitor (Eypndhd-Lmm-Oyn weakness Reductase Inhibitor) tramadol AdvReac Other Verified 04/13/25 14:28 Family History Mother , age 55 sudden cardiac CAD (coronary artery disease) Sudden cardiac Father , age 77 Lung cancer Sister carotid artery surgery CAD (coronary artery disease) Surgical History (Updated 04/13/25 @ 20:18 by Syeda Camilo) Hx of total knee replacement History of appendectomy History of Wendy fundoplication Social History (Updated 04/13/25 @ 19:[address] Lilia Tom MD) household members: spouse Smoking Status: Former smoker alcohol intake: current alcohol intake frequency: 0-2 drinks per day Alcohol type: wine substance use type: does not use caffeine: Yes Type: coffee Number of servings: 1 what type of physical activity do you participate in: none seatbelt use: always do you feel safe at home: Yes ROS <PIYUSH Sapp - Last Filed: 04/13/25 18:48> ROS ED Constitutional Constitutional ED: Denies chills or fever(s) Cardiovascular Cardiovascular: Denies chest pain Respiratory/Chest Respiratory/Chest: Denies cough or dyspnea Gastrointestinal Gastrointestinal: Denies abdominal pain, diarrhea, nausea or vomiting Genitourinary Genitourinary ED: Denies dysuria, hematuria or urinary urgency Musculoskeletal Musculoskeletal: Denies arthralgias or myalgias Integumentary Denies rash Neurologic Neurologic: Reports weakness EXAM <PIYUSH Sapp - Last Filed: 04/13/25 18:48> Physical Exam Const Vital Signs: 04/13/25 14:28 04/13/25 14:31 04/13/25 14:55 Temperature 97.8 F 97.8 F Temperature Source Oral Oral Pulse Rate 85 85 Pulse Rate [Lying] Respiratory Rate 18 18 Respiratory Effort Normal Non-Labored Respiratory Pattern Normal Blood Pressure 132/64 H 132/64 H Blood Pressure [Lying] Blood Pressure Mean 86 86 Blood Pressure Mean [Lying] Pulse Ox 100 100 Oxygen Delivery Method Room Air Room Air 04/13/25 15:26 04/13/25 16:28 04/13/25 18:00 Temperature Temperature Source Pulse Rate 70 72 Pulse Rate [Lying] 76 Respiratory Rate 17 Respiratory Effort Respiratory Pattern Blood Pressure 126/61 H 147/63 H Blood Pressure [Lying] 81/49 L Blood Pressure Mean 82 91 Blood Pressure Mean [Lying] 59 Pulse Ox 98 98 Oxygen Delivery Method Room Air Room Air 04/13/25 18:41 Temperature 97.8 F Temperature Source Pulse Rate 72 Pulse Rate [Lying] Respiratory Rate 16 Respiratory Effort Respiratory Pattern Blood Pressure 151/65 H Blood Pressure [Lying] Blood Pressure Mean 93 Blood Pressure Mean [Lying] Pulse Ox 99 Oxygen Delivery Method Positive well nourished, well developed and no apparent distress General Appearance ED: well developed HEENT Reports normocephalic, head/scalp atraumatic and dry mucous membranes Mouth ED: Yes dry mucous membranes Mouth: dry mucous membranes Eyes PERRL and EOMs intact bilaterally Neck full ROM and supple Chest Wall inspection of chest normal Resp normal respiratory effort and clear to auscultation bilaterally Cardio regular rate and regular rhythm Cardio Narrative: Systolic murmur GI soft to palpation, non-tender, non-distended and no masses Back/Spine normal ROM and normal to inspection Extremity normal to inspection and full ROM Neuro oriented x3, CN's II-XII intact bilaterally, moves all extremities, no focal motor deficits and no sensory deficits noted Sensorium / Orientation: awake and alert Psych mental status grossly normal and thought process normal Skin no rashes or lesions noted and no wounds <Dr. Ant Vale DO - Last Filed: 04/13/25 23:28> Physical Exam Const Vital Signs: 04/13/25 14:28 04/13/25 14:31 04/13/25 14:55 Temperature 97.8 F 97.8 F Temperature Source Oral Oral Pulse Rate 85 85 Pulse Rate [Lying] Respiratory Rate 18 18 Respiratory Effort Normal Non-Labored Respiratory Pattern Normal Blood Pressure 132/64 H 132/64 H Blood Pressure [Lying] Blood Pressure Mean 86 86 Blood Pressure Mean [Lying] Pulse Ox 100 100 Oxygen Delivery Method Room Air Room Air 04/13/25 15:26 04/13/25 16:28 04/13/25 18:00 Temperature Temperature Source Pulse Rate 70 72 Pulse Rate [Lying] 76 Respiratory Rate 17 Respiratory Effort Respiratory Pattern Blood Pressure 126/61 H 147/63 H Blood Pressure [Lying] 81/49 L Blood Pressure Mean 82 91 Blood Pressure Mean [Lying] 59 Pulse Ox 98 98 Oxygen Delivery Method Room Air Room Air 04/13/25 18:41 Temperature 97.8 F Temperature Source Pulse Rate 72 Pulse Rate [Lying] Respiratory Rate 16 Respiratory Effort Respiratory Pattern Blood Pressure 151/65 H Blood Pressure [Lying] Blood Pressure Mean 93 Blood Pressure Mean [Lying] Pulse Ox 99 Oxygen Delivery Method [facility] <PIYUSH Sapp - Last Filed: 04/13/25 18:48> [facility] Narrative Medical decision making narrative: Patient presenting today with generalized weakness that has been ongoing over the past month. She does appear very dry, she will be given IV fluids. She denies any history of CHF. Aside from feeling weak she really has no other acute complaints aside from feeling lightheaded with ambulating. Suspect she is getting orthostatic, orthostatic vital signs will be obtained. Generalized workup will be obtained to assess for leukocytosis, anemia, electrolyte abnormality, hepatobiliary etiology, JACQUELYN, ACS, UTI, thyroid dysfunction. Chest x-ray will be obtained to assess for pneumonia and other cardiopulmonary abnormality. CBC reveals a hemoglobin of 11.2, her creatinine is 1.61 which is near her baseline. Elevated transaminases. She does appear to be a hypothyroid, she thinks that she has been taking her levothyroxine as prescribed but daughter thinks she may be missing doses. Her initial troponin is 86, repeat is 72. She denies any chest pain or shortness of breath. EKG does not show any ischemia or ST elevation. She also has a UTI which will be cultured and she will be treated with with Rocephin. Chest x- ray negative for pneumonia. Given her UTI, generalized weakness, difficulty ambulating, and elevated troponins I do feel she would benefit from admission to the hospital for further treatment. After speaking with Dr. Tom she will be admitted in stable condition. Lab Data Attestation: I reviewed the patient's lab results. Labs: Laboratory Results - last 24 hr 04/13/25 04/13/25 04/13/25 15:15 16:15 16:40 WBC 7.3 RBC 3.58 L Hgb 11.2 L Hct 33.4 L MCV 93.3 MCH 31.3 MCHC 33.5 RDW Std Deviation 45.0 H RDW Coeff of Krystyna 13.2 Plt Count 166 MPV 9.8 Immature Gran % (Auto) 0.400 Neut % (Auto) 70.3 H Lymph % (Auto) 18.7 L [place] % (Auto) 8.1 Eos % (Auto) 1.8 Baso % (Auto) 0.7 Absolute Neuts (auto) 5.2 Absolute Lymphs (auto) 1.37 Nucleated RBC % 0 PT Cancelled 17.0 H INR Cancelled 1.4 Sodium 142 Potassium 3.9 Chloride 110 H Carbon Dioxide 20.7 L Anion Gap 12 BUN 27 H Creatinine 1.61 H Estim Creat Clear Calc 19.47 L Est GFR (MDRD) Non-Af 31 L BUN/Creatinine Ratio 16.6 Glucose 165 H Calcium 9.5 Magnesium 2.4 H Total Bilirubin 0.86 AST 170 H ALT 127 H Alkaline Phosphatase 53 Troponin T High Sens 86 H* Troponin T Hi Sens 2 Hr Total Protein 6.2 Albumin 3.8 Globulin 2.4 Albumin/Globulin Ratio 1.6 TSH 4.720 H Free T4 1.00 Free T3 pg/dL 1.6 L Urine Color Yellow Urine Clarity Sl. Cloudy Urine pH 6.0 Ur Specific [place] 1.020 Urine Protein 100 H Urine Glucose (UA) Normal Urine Ketones Negative Urine Occult Blood 250 H Urine Nitrite Positive H Urine Bilirubin Negative Urine Urobilinogen 4 H Ur Leukocyte Esterase 500 H Urine RBC 25-50 SEEN Urine WBC 25-50 SEEN Ur Squamous Epith Cells 0-5 SEEN Ur Renal Epithelial Cell 0-5 SEEN Urine Bacteria 4+ Fine Granular Casts 0-5 SEEN Coarse Granular Casts 0-5 SEEN Urine Mucus 0 SEEN 04/13/25 17:15 WBC RBC Hgb Hct MCV MCH MCHC RDW Std Deviation RDW Coeff of Krystyna Plt Count MPV Immature Gran % (Auto) Neut % (Auto) Lymph % (Auto) [place] % (Auto) Eos % (Auto) Baso % (Auto) Absolute Neuts (auto) Absolute Lymphs (auto) Nucleated RBC % PT INR Sodium Potassium Chloride Carbon Dioxide Anion Gap BUN Creatinine Estim Creat Clear Calc Est GFR (MDRD) Non-Af BUN/Creatinine Ratio Glucose Calcium Magnesium 1.9 Total Bilirubin AST ALT Alkaline Phosphatase Troponin T High Sens Troponin T Hi Sens 2 Hr 72 H* Total Protein Albumin Globulin Albumin/Globulin Ratio TSH Free T4 Free T3 pg/dL Urine Color Urine Clarity Urine pH Ur Specific [place] Urine Protein Urine Glucose (UA) Urine Ketones Urine Occult Blood Urine Nitrite Urine Bilirubin Urine Urobilinogen Ur Leukocyte Esterase Urine RBC Urine WBC Ur Squamous Epith Cells Ur Renal Epithelial Cell Urine Bacteria Fine Granular Casts Coarse Granular Casts Urine Mucus Radiography X-Ray: Read by ED Physician Diagnostic Testing: Clinical Impression(s) from Imaging Studies Chest X-Ray 04/13/25 15:40 IMPRESSION: No acute cardiopulmonary process. Reading Location: [facility] EKG Initial EKG: Comments: 67 bpm, sinus rhythm with first-degree AV block, no ST elevation, interpreted by attending ED physician <Dr. Ant Vale, DO - Last Filed: 04/13/25 23:28> [facility] Narrative Medical decision making narrative: Patient presenting today with generalized weakness that has been ongoing over the past month. She does appear very dry, she will be given IV fluids. She denies any history of CHF. Aside from feeling weak she really has no other acute complaints aside from feeling lightheaded with ambulating. Suspect she is getting orthostatic, orthostatic vital signs will be obtained. Generalized workup will be obtained to assess for leukocytosis, anemia, electrolyte abnormality, hepatobiliary etiology, JACQUELYN, ACS, UTI, thyroid dysfunction. Chest x-ray will be obtained to assess for pneumonia and other cardiopulmonary abnormality. CBC reveals a hemoglobin of 11.2, her creatinine is 1.61 which is near her baseline. Elevated transaminases. She does appear to be a hypothyroid, she thinks that she has been taking her levothyroxine as prescribed but daughter thinks she may be missing doses. Her initial troponin is 86, repeat is 72. She denies any chest pain or shortness of breath. EKG does not show any ischemia or ST elevation. She also has a UTI which will be cultured and she will be treated with with Rocephin. Chest x- ray negative for pneumonia. Given her UTI, generalized weakness, difficulty ambulating, and elevated troponins I do feel she would benefit from admission to the hospital for further treatment. After speaking with Dr. Tom she will be admitted in stable condition. Supervisory Physician Note Patient was seen and examined with the Advanced Practice Provider. Nursing notes and vital signs have been reviewed. Pertinent old records have been reviewed. I agree with the essential elements of the SEAN's history, physical exam, assessment, and plan. The differential diagnosis and management options were discussed with the SEAN. I participated in determining and agree with the management, procedures, final impression and disposition as documented. See changes noted by me. Please see addendum or separate note for any additional details. 89-year-old female with history of CVA, HTN, HLD, hypothyroidism presents for evaluation of generalized weakness and decreased p.o. intake. Denies any fever, chills, chest pain, abdominal pain, nausea, vomiting, dysuria, diarrhea, constipation. Gen: A&O x3, NAD Head: Normocephalic, atraumatic Eyes: No sclera icterus, conjunctiva clear, PERRL, EOMI ENT: Very dry mucous membranes Neck: Trachea midline, No JVD CV: RRR, no murmurs, no peripheral edema Resp: Lungs CTA BL, no w/r/c GI: Abd soft, non-distended, non-tender, no r/r/g Musc: Moves all extremity, no deformity Skin: Warm, dry Neuro: Alert, oriented, grossly intact, sensation intact Psych: Cooperative, appropriate mood and affect On presentation, patient was normotensive with a blood pressure 132/64. However during my evaluation she was hypotensive and SBP into the low 80s/high 70s. Suspect that this is secondary to dehydration as patient not endorsing any infectious type symptoms and is clinically dry on physical exam. NS bolus ordered. General workup ordered as differential diagnosis is broad including dehydration, JACQUELYN, electrolyte abnormality, hypothyroidism, UTI, ACS. EKG was personally reviewed and interpreted by me, ED physician. EKG shows normal sinus rhythm with AV block. Known right bundle branch block. Heart rate 67. Chest x-ray was personally reviewed interpreted by me, ED physician pneumonia, effusion, cardiomegaly, pneumothorax. CBC without leukocytosis. Patient has anemia of 11.2. History of anemia in the past. Denies any bloody bowel movements. CMP shows baseline renal insufficiency. Patient has transaminitis. She is not endorsing any abdominal pain and nontender on physical exam. Magnesium level unremarkable. Troponin 86. Patient not having any chest pain. No acute ischemic changes on EKG. Repeat 72. TSH elevated at 4.7 however free T4 normal. Subclinical hypothyroidism. UA positive for UTI. Urine culture sent. Rocephin started. Patient warrants admission. Accepted to the hospitalist service. Impression: 1. UTI 2. Dehydration 3. Hypotension, resolved, secondary to #2 4. Elevated troponin 5. Transaminitis 6. Weakness Lab Data Labs: Laboratory Results - last 24 hr 04/13/25 04/13/25 04/13/25 15:15 16:15 16:40 WBC 7.3 RBC 3.58 L Hgb 11.2 L Hct 33.4 L MCV 93.3 MCH 31.3 MCHC 33.5 RDW Std Deviation 45.0 H RDW Coeff of Krystyna 13.2 Plt Count 166 MPV 9.8 Immature Gran % (Auto) 0.400 Neut % (Auto) 70.3 H Lymph % (Auto) 18.7 L [place] % (Auto) 8.1 Eos % (Auto) 1.8 Baso % (Auto) 0.7 Absolute Neuts (auto) 5.2 Absolute Lymphs (auto) 1.37 Nucleated RBC % 0 PT Cancelled 17.0 H INR Cancelled 1.4 Sodium 142 Potassium 3.9 Chloride 110 H Carbon Dioxide 20.7 L Anion Gap 12 BUN 27 H Creatinine 1.61 H Estim Creat Clear Calc 19.47 L Est GFR (MDRD) Non-Af 31 L BUN/Creatinine Ratio 16.6 Glucose 165 H Calcium 9.5 Magnesium 2.4 H Total Bilirubin 0.86 AST 170 H ALT 127 H Alkaline Phosphatase 53 Troponin T High Sens 86 H* Troponin T Hi Sens 2 Hr Total Protein 6.2 Albumin 3.8 Globulin 2.4 Albumin/Globulin Ratio 1.6 TSH 4.720 H Free T4 1.00 Free T3 pg/dL 1.6 L Urine Color Yellow Urine Clarity Sl. Cloudy Urine pH 6.0 Ur Specific [place] 1.020 Urine Protein 100 H Urine Glucose (UA) Normal Urine Ketones Negative Urine Occult Blood 250 H Urine Nitrite Positive H Urine Bilirubin Negative Urine Urobilinogen 4 H Ur Leukocyte Esterase 500 H Urine RBC 25-50 SEEN Urine WBC 25-50 SEEN Ur Squamous Epith Cells 0-5 SEEN Ur Renal Epithelial Cell 0-5 SEEN Urine Bacteria 4+ Fine Granular Casts 0-5 SEEN Coarse Granular Casts 0-5 SEEN Urine Mucus 0 SEEN 04/13/25 17:15 WBC RBC Hgb Hct MCV MCH MCHC RDW Std Deviation RDW Coeff of Krystyna Plt Count MPV Immature Gran % (Auto) Neut % (Auto) Lymph % (Auto) [place] % (Auto) Eos % (Auto) Baso % (Auto) Absolute Neuts (auto) Absolute Lymphs (auto) Nucleated RBC % PT INR Sodium Potassium Chloride Carbon Dioxide Anion Gap BUN Creatinine Estim Creat Clear Calc Est GFR (MDRD) Non-Af BUN/Creatinine Ratio Glucose Calcium Magnesium 1.9 Total Bilirubin AST ALT Alkaline Phosphatase Troponin T High Sens Troponin T Hi Sens 2 Hr 72 H* Total Protein Albumin Globulin Albumin/Globulin Ratio TSH Free T4 Free T3 pg/dL Urine Color Urine Clarity Urine pH Ur Specific [place] Urine Protein Urine Glucose (UA) Urine Ketones Urine Occult Blood Urine Nitrite Urine Bilirubin Urine Urobilinogen Ur Leukocyte Esterase Urine RBC Urine WBC Ur Squamous Epith Cells Ur Renal Epithelial Cell Urine Bacteria Fine Granular Casts Coarse Granular Casts Urine Mucus Radiography Diagnostic Testing: Clinical Impression(s) from Imaging Studies Chest X-Ray 04/13/25 15:40 IMPRESSION: No acute cardiopulmonary process. Reading Location: [id number] Discharge Plan Dx/Rx/DC Orders Clinical Impression: Generalized weakness, UTI (urinary tract infection), Acute dehydration Disposition Disposition: Acute Care Hospital [facility] Discharge Date/Time: 04/13/25 19:33 What to do if you have Problems For any increased pain, shortness of breath, bleeding, nausea or vomiting, chest pain, or any unexpected problems, contact your Primary Care Provider. Call [facility] ([phone]) or report to the closest Emergency Room. Call 911 if necessary. 04/13/25 1848 <Electronically signed by Miladis PICEKTT> Cosigner Signature (if applicable): 04/13/25 2328 <Electronically signed by Ant Vale DO> CC: Dr. May Avitia MD ~ Signed [facility] Work Phone: [phone] Discharge summary [facility] Medical Records Department [address] [place] [address] Emergency Department Summary 04/13/25 MR#: [id number] Acct: [id number] Name: ALLIE MARIE Rep #:[id number] : [id number] 89 From: Miladis PICKETT PCP: Dr. May Avitia MD Status:ADM IN Location: [address] History of Present Illness Chief Complaint: Weakness Narrative Narrative: Please presenting today with her daughter due to concerns for generalized weakness that has been ongoing over the past week. Patient admits that she has not been eating or drinking much throughout the day, she is eating maybe a sandwich in total and drinking very little. She does appear dehydrated.She reports that she just does not have much of an appetite. She has been feeling lightheaded with ambulating and has felt weak in her legs which is making it hard for her to ambulate. She also reports feeling intermittently short of breath. She denies currently feeling short of breath. She denies any history of blood clots or recent surgery/travel/immobilization. She denies any recent illness, fevers, chills, abdominal pain, nausea, vomiting, and chest pain. She denies flulike symptoms. She has a PMH of CVA, HTN, and HLD. [facility] Medical History Essential (primary) hypertension Stenosis of right vertebral artery Hyperlipidemia Obstructive hypertrophic cardiomyopathy Syncope and collapse History of CVA (cerebrovascular accident) (07/2017) Vertigo Depression Obstructive sleep apnea History of TIA (transient ischemic attack) Meniere disease History of asthma Home Medications ?Medication ?Instructions ?Recorded ?Last Taken ?Type aspirin 81 mg chewable tablet 81 mg PO DAILY@0800 heal th 07/13/17 04/12/25 History maintenance clopidogrel 75 mg tablet 75 mg PO DAILY blood thinner 07/13/17 04/12/25 History losartan 50 mg tablet 50 mg PO DAILY #90 tabs 12/1704/12/25 Rx levothyroxine 25 mcg tablet 25 mcg PO DAILY 04/13/25 0 04/12/25 History metoprolol succinate 100 mg 100 mg PO DAILY 04/13/25 0 04/12/25 History tablet,extended release 24 hr rosuvastatin 40 mg tablet 40 mg PO DAILY 04/13/2503/27 History Allergy/AdvReac Type Severity Reaction Status Date / Time hornet venom Allergy Anaphylaxis Verified 04/13/25 14:28 insect venom (yellow jacket) Allergy Anaphylaxis Verified 04/13/25 14:28 Penicillins Allergy Rash Verified 04/13/25 14:28 venom-wasp (Wasp Venom) Allergy Anaphylaxis Verified 04/13/25 14:28 Fmaauit-DCA-CoQ Reductase AdvReac muscle Verified 04/13/25 21:07 Inhibitor (Nqjxbmd-Awu-Ygy weakness Reductase Inhibitor) tramadol AdvReac Other Verified 04/13/25 14:28 Family History Mother , age 55 sudden cardiac CAD (coronary artery disease) Sudden cardiac Father , age 77 Lung cancer Sister carotid artery surgery CAD (coronary artery disease) Surgical History (Updated 04/13/25 @ 20:18 by Syeda Camilo) Hx of total knee replacement History of appendectomy History of Wendy fundoplication Social History (Updated 04/13/25 @ 19:[address] Lilia Tom MD) household members: spouse Smoking Status: Former smoker alcohol intake: current alcohol intake frequency: 0-2 drinks per day Alcohol type: wine substance use type: does not use caffeine: Yes Type: coffee Number of servings: 1 what type of physical activity do you participate in: none seatbelt use: always do you feel safe at home: Yes ROS ROS ED Constitutional Constitutional ED: Denies chills or fever(s) Cardiovascular Cardiovascular: Denies chest pain Respiratory/Chest Respiratory/Chest: Denies cough or dyspnea Gastrointestinal Gastrointestinal: Denies abdominal pain, diarrhea, nausea or vomiting Genitourinary Genitourinary ED: Denies dysuria, hematuria or urinary urgency Musculoskeletal Musculoskeletal: Denies arthralgias or myalgias Integumentary Denies rash Neurologic Neurologic: Reports weakness EXAM Physical Exam Const Vital Signs: 04/13/25 14:28 04/13/25 14:31 04/13/25 14:55 Temperature 97.8 F 97.8 F Temperature Source Oral Oral Pulse Rate 85 85 Pulse Rate [Lying] Respiratory Rate 18 18 Respiratory Effort Normal Non-Labored Respiratory Pattern Normal Blood Pressure 132/64 H 132/64 H Blood Pressure [Lying] Blood Pressure Mean 86 86 Blood Pressure Mean [Lying] Pulse Ox 100 100 Oxygen Delivery Method Room Air Room Air 04/13/25 15:26 04/13/25 16:28 04/13/25 18:00 Temperature Temperature Source Pulse Rate 70 72 Pulse Rate [Lying] 76 Respiratory Rate 17 Respiratory Effort Respiratory Pattern Blood Pressure 126/61 H 147/63 H Blood Pressure [Lying] 81/49 L Blood Pressure Mean 82 91 Blood Pressure Mean [Lying] 59 Pulse Ox 98 98 Oxygen Delivery Method Room Air Room Air 04/13/25 18:41 Temperature 97.8 F Temperature Source Pulse Rate 72 Pulse Rate [Lying] Respiratory Rate 16 Respiratory Effort Respiratory Pattern Blood Pressure 151/65 H Blood Pressure [Lying] Blood Pressure Mean 93 Blood Pressure Mean [Lying] Pulse Ox 99 Oxygen Delivery Method Positive well nourished, well developed and no apparent distress General Appearance ED: well developed HEENT Reports normocephalic, head/scalp atraumatic and dry mucous membranes Mouth ED: Yes dry mucous membranes Mouth: dry mucous membranes Eyes PERRL and EOMs intact bilaterally Neck full ROM and supple Chest Wall inspection of chest normal Resp normal respiratory effort and clear to auscultation bilaterally Cardio regular rate and regular rhythm Cardio Narrative: Systolic murmur GI soft to palpation, non-tender, non-distended and no masses Back/Spine normal ROM and normal to inspection Extremity normal to inspection and full ROM Neuro oriented x3, CN's II-XII intact bilaterally, moves all extremities, no focal motor deficits and no sensory deficits noted Sensorium / Orientation: awake and alert Psych mental status grossly normal and thought process normal Skin no rashes or lesions noted and no wounds Physical Exam Const Vital Signs: 04/13/25 14:28 04/13/25 14:31 04/13/25 14:55 Temperature 97.8 F 97.8 F Temperature Source Oral Oral Pulse Rate 85 85 Pulse Rate [Lying] Respiratory Rate 18 18 Respiratory Effort Normal Non-Labored Respiratory Pattern Normal Blood Pressure 132/64 H 132/64 H Blood Pressure [Lying] Blood Pressure Mean 86 86 Blood Pressure Mean [Lying] Pulse Ox 100 100 Oxygen Delivery Method Room Air Room Air 04/13/25 15:26 04/13/25 16:28 04/13/25 18:00 Temperature Temperature Source Pulse Rate 70 72 Pulse Rate [Lying] 76 Respiratory Rate 17 Respiratory Effort Respiratory Pattern Blood Pressure 126/61 H 147/63 H Blood Pressure [Lying] 81/49 L Blood Pressure Mean 82 91 Blood Pressure Mean [Lying] 59 Pulse Ox 98 98 Oxygen Delivery Method Room Air Room Air 04/13/25 18:41 Temperature 97.8 F Temperature Source Pulse Rate 72 Pulse Rate [Lying] Respiratory Rate 16 Respiratory Effort Respiratory Pattern Blood Pressure 151/65 H Blood Pressure [Lying] Blood Pressure Mean 93 Blood Pressure Mean [Lying] Pulse Ox 99 Oxygen Delivery Method MDM MDM MDM Narrative Medical decision making narrative: Patient presenting today with generalized weakness that has been ongoing over the past month. She does appear very dry, she will be given IV fluids. She denies any history of CHF. Aside from feeling weak she really has no other acute complaints aside from feeling lightheaded with ambulating. Suspect she is getting orthostatic, orthostatic vital signs will be obtained. Generalized workup will be obtained to assess for leukocytosis, anemia, electrolyte abnormality, hepatobiliary etiology, JACQUELYN, ACS, UTI, thyroid dysfunction. Chest x-ray will be obtained to assess for pneumonia and other cardiopulmonary abnormality. CBC reveals a hemoglobin of 11.2, her creatinine is 1.61 which is near her baseline. Elevated transaminases. She does appear to be a hypothyroid, she thinks that she has been taking her levothyroxineas prescribed but daughter thinks she may be missing doses. Her initial troponin is 86, repeat is 72. She denies any chest pain or shortness of breath. EKG does not show any ischemia or ST elevation.She also has a UTI which will be cultured and she will be treated with with Rocephin. Chest x-ray negative for pneumonia. Given her UTI, generalized weakness, difficulty ambulating, and elevated troponins I do feel she would benefit from admission to the hospital for further treatment. After speaking with Dr. Tom she will be admitted in stable condition. Lab Data Attestation: I reviewed the patient's lab results. Labs: Laboratory Results - last 24 hr 04/13/25 04/13/25 04/13/25 15:15 16:15 16:40 WBC 7.3 RBC 3.58 L Hgb 11.2 L Hct 33.4 L MCV 93.3 MCH 31.3 MCHC 33.5 RDW Std Deviation 45.0 H RDW Coeff of Krystyna 13.2 Plt Count 166 MPV 9.8 Immature Gran % (Auto) 0.400 Neut % (Auto) 70.3 H Lymph % (Auto) 18.7 L [place] % (Auto) 8.1 Eos % (Auto) 1.8 Baso % (Auto) 0.7 Absolute Neuts (auto) 5.2 Absolute Lymphs (auto) 1.37 Nucleated RBC % 0 PT Cancelled 17.0 H INR Cancelled 1.4 Sodium 142 Potassium 3.9 Chloride 110 H Carbon Dioxide 20.7 L Anion Gap 12 BUN 27 H Creatinine 1.61 H Estim Creat Clear Calc 19.47 L Est GFR (MDRD) Non-Af 31 L BUN/Creatinine Ratio 16.6 Glucose 165 H Calcium 9.5 Magnesium 2.4 H Total Bilirubin 0.86 AST 170 H ALT 127 H Alkaline Phosphatase 53 Troponin T High Sens 86 H* Troponin T Hi Sens 2 Hr Total Protein 6.2 Albumin 3.8 Globulin 2.4 Albumin/Globulin Ratio 1.6 TSH 4.720 H Free T4 1.00 Free T3 pg/dL 1.6 L Urine Color Yellow Urine Clarity Sl. Cloudy Urine pH 6.0 Ur Specific [place] 1.020 Urine Protein 100 H Urine Glucose (UA) Normal Urine Ketones Negative Urine Occult Blood 250 H Urine Nitrite Positive H Urine Bilirubin Negative Urine Urobilinogen 4 H Ur Leukocyte Esterase 500 H Urine RBC 25-50 SEEN Urine WBC 25-50 SEEN Ur Squamous Epith Cells 0-5 SEEN Ur Renal Epithelial Cell 0-5 SEEN Urine Bacteria 4+ Fine Granular Casts 0-5 SEEN Coarse Granular Casts 0-5 SEEN Urine Mucus 0 SEEN 04/13/25 17:15 WBC RBC Hgb Hct MCV MCH MCHC RDW Std Deviation RDW Coeff of Krystyna Plt Count MPV Immature Gran % (Auto) Neut % (Auto) Lymph % (Auto) [place] % (Auto) Eos % (Auto) Baso % (Auto) Absolute Neuts (auto) Absolute Lymphs (auto) Nucleated RBC % PT INR Sodium Potassium Chloride Carbon Dioxide Anion Gap BUN Creatinine Estim Creat Clear Calc Est GFR (MDRD) Non-Af BUN/Creatinine Ratio Glucose Calcium Magnesium 1.9 Total Bilirubin AST ALT Alkaline Phosphatase Troponin T High Sens Troponin T Hi Sens 2 Hr 72 H* Total Protein Albumin Globulin Albumin/Globulin Ratio TSH Free T4 Free T3 pg/dL Urine Color Urine Clarity Urine pH Ur Specific [place] Urine Protein Urine Glucose (UA) Urine Ketones Urine Occult Blood Urine Nitrite Urine Bilirubin Urine Urobilinogen Ur Leukocyte Esterase Urine RBC Urine WBC Ur Squamous Epith Cells Ur Renal Epithelial Cell Urine Bacteria Fine Granular Casts Coarse Granular Casts Urine Mucus Radiography X-Ray: Read by ED Physician Diagnostic Testing: Clinical Impression(s) from Imaging Studies Chest X-Ray 04/13/25 15:40 IMPRESSION: No acute cardiopulmonary process. Reading Location: [facility] EKG Initial EKG: Comments: 67 bpm, sinus rhythm with first-degree AV block, no ST elevation, interpreted by attending ED physician MDM MDM Narrative Medical decision making narrative: Patient presenting today with generalized weakness that has been ongoing over the past month. She does appear very dry, she will be given IV fluids. She denies any history of CHF. Aside from feeling weak she really has no other acute complaints aside from feeling lightheaded with ambulating. Suspect she is getting orthostatic, orthostatic vital signs will be obtained. Generalized workup will be obtained to assess for leukocytosis, anemia, electrolyte abnormality, hepatobiliary etiology, JACQUELYN, ACS, UTI, thyroid dysfunction. Chest x-ray will be obtained to assess for pneumonia and other cardiopulmonary abnormality. CBC reveals a hemoglobin of 11.2, her creatinine is 1.61 which is near her baseline. Elevated transaminases. She does appear to be a hypothyroid, she thinks that she has been taking her levothyroxineas prescribed but daughter thinks she may be missing doses. Her initial troponin is 86, repeat is 72. She denies any chest pain or shortness of breath. EKG does not show any ischemia or ST elevation.She also has a UTI which will be cultured and she will be treated with with Rocephin. Chest x-ray negative for pneumonia. Given her UTI, generalized weakness, difficulty ambulating, and elevated troponins I do feel she would benefit from admission to the hospital for further treatment. After speaking with Dr. Tom she will be admitted in stable condition. Supervisory Physician Note Patient was seen and examined with the Advanced Practice Provider. Nursing notes and vital signs have been reviewed. Pertinent old records have been reviewed. I agree with the essential elements of the SEAN's history, physical exam, assessment, and plan. The differential diagnosis and management options were discussed with the SEAN. I participated in determining and agree with the management, procedures, final impression and disposition as documented. See changes noted by me. Please see addendum or separate note for any additional details. 89-year-old female with history of CVA, HTN, HLD, hypothyroidism presents for evaluation of generalized weakness and decreased p.o. intake. Denies any fever, chills, chest pain, abdominal pain, nausea, vomiting, dysuria, diarrhea, constipation. Gen: A&O x3, NAD Head: Normocephalic, atraumatic Eyes: No sclera icterus, conjunctiva clear, PERRL, EOMI ENT: Very dry mucous membranes Neck: Trachea midline, No JVD CV: RRR, no murmurs, no peripheral edema Resp: Lungs CTA BL, no w/r/c GI: Abd soft, non-distended, non-tender, no r/r/g Musc: Moves all extremity, no deformity Skin: Warm, dry Neuro: Alert, oriented, grossly intact, sensation intact Psych: Cooperative, appropriate mood and affect On presentation, patient was normotensive with a blood pressure 132/64. However during my evaluation she was hypotensive and SBP into the low 80s/high 70s. Suspect that this is secondary to dehydration as patient not endorsing any infectious type symptoms and is clinically dry on physical exam. NS bolus ordered. General workup ordered as differential diagnosis is broad including dehydration, JACQUELYN,electrolyte abnormality, hypothyroidism, UTI, ACS. EKG was personally reviewed and interpreted by me, ED physician. EKG shows normal sinus rhythm with AV block. Known right bundle branch block. Heartrate 67. Chest x-ray was personally reviewed interpreted by ok, ED physician pneumonia, effusion, ca rdiomegaly, pneumothorax. CBC without leukocytosis. Patient has anemia of 11.2. History of anemia in the past. Denies any bloody bowel movements. CMP shows baseline renal insufficiency. Patient has transaminitis. She is not endorsing any abdominal pain and nontender on physical exam. Magnesium level unremarkable. Troponin 86. Patient not having any chest pain. No acute ischemic changes on EKG. Repeat 72. TSH elevated at 4.7 however free T4 normal. Subclinical hypothyroidism. UA positive for UTI. Urine culture sent. Rocephin started. Patient warrants admission. Accepted to the hospitalist service. Impression: 1. UTI 2. Dehydration 3. Hypotension, resolved, secondary to #2 4. Elevated troponin 5. Transaminitis 6. Weakness Lab Data Labs: Laboratory Results - last 24 hr 04/13/25 04/13/25 04/13/25 15:15 16:15 16:40 WBC 7.3 RBC 3.58 L Hgb 11.2 L Hct 33.4 L MCV 93.3 MCH 31.3 MCHC 33.5 RDW Std Deviation 45.0 H RDW Coeff of Krystyna 13.2 Plt Count 166 MPV 9.8 Immature Gran % (Auto) 0.400 Neut % (Auto) 70.3 H Lymph % (Auto) 18.7 L [place] % (Auto) 8.1 Eos % (Auto) 1.8 Baso % (Auto) 0.7 Absolute Neuts (auto) 5.2 Absolute Lymphs (auto) 1.37 Nucleated RBC % 0 PT Cancelled 17.0 H INR Cancelled 1.4 Sodium 142 Potassium 3.9 Chloride 110 H Carbon Dioxide 20.7 L Anion Gap 12 BUN 27 H Creatinine 1.61 H Estim Creat Clear Calc 19.47 L Est GFR (MDRD) Non-Af 31 L BUN/Creatinine Ratio 16.6 Glucose 165 H Calcium 9.5 Magnesium 2.4 H Total Bilirubin 0.86 AST 170 H ALT 127 H Alkaline Phosphatase 53 Troponin T High Sens 86 H* Troponin T Hi Sens 2 Hr Total Protein 6.2 Albumin 3.8 Globulin 2.4 Albumin/Globulin Ratio 1.6 TSH 4.720 H Free T4 1.00 Free T3 pg/dL 1.6 L Urine Color Yellow Urine Clarity Sl. Cloudy Urine pH 6.0 Ur Specific [place] 1.020 Urine Protein 100 H Urine Glucose (UA) Normal Urine Ketones Negative Urine Occult Blood 250 H Urine Nitrite Positive H Urine Bilirubin Negative Urine Urobilinogen 4 H Ur Leukocyte Esterase 500 H Urine RBC 25-50 SEEN Urine WBC 25-50 SEEN Ur Squamous Epith Cells 0-5 SEEN Ur Renal Epithelial Cell 0-5 SEEN Urine Bacteria 4+ Fine Granular Casts 0-5 SEEN Coarse Granular Casts 0-5 SEEN Urine Mucus 0 SEEN 04/13/25 17:15 WBC RBC Hgb Hct MCV MCH MCHC RDW Std Deviation RDW Coeff of Krystyna Plt Count MPV Immature Gran % (Auto) Neut % (Auto) Lymph % (Auto) [place] % (Auto) Eos % (Auto) Baso % (Auto) Absolute Neuts (auto) Absolute Lymphs (auto) Nucleated RBC % PT INR Sodium Potassium Chloride Carbon Dioxide Anion Gap BUN Creatinine Estim Creat Clear Calc Est GFR (MDRD) Non-Af BUN/Creatinine Ratio Glucose Calcium Magnesium 1.9 Total Bilirubin AST ALT Alkaline Phosphatase Troponin T High Sens Troponin T Hi Sens 2 Hr 72 H* Total Protein Albumin Globulin Albumin/Globulin Ratio TSH Free T4 Free T3 pg/dL Urine Color Urine Clarity Urine pH Ur Specific [place] Urine Protein Urine Glucose (UA) Urine Ketones Urine Occult Blood Urine Nitrite Urine Bilirubin Urine Urobilinogen Ur Leukocyte Esterase Urine RBC Urine WBC Ur Squamous Epith Cells Ur Renal Epithelial Cell Urine Bacteria Fine Granular Casts Coarse Granular Casts Urine Mucus Radiography Diagnostic Testing: Clinical Impression(s) from Imaging Studies Chest X-Ray 04/13/25 15:40 IMPRESSION: No acute cardiopulmonary process. Reading Location: [facility] Discharge Plan Dx/Rx/DC Orders Clinical Impression: Generalized weakness, UTI (urinary tract infection), Acute dehydration Disposition Disposition: Acute Care Hospital [facility] Discharge Date/Time: 04/13/25 19:33 What to do if you have Problems For any increased pain, shortness of breath, bleeding, nausea or vomiting, chest pain, or any unexpected problems, contact your Primary Care Provider. Call [facility] ([phone]) or report to the closest Emergency Room. Call 911 if necessary. 04/13/251847 Cosigner Signature (if applicable): 04/13/25 [id number] CC: Dr. May Avitia MD ~ Signed [facility]05-18-2025 History and physical note Author Lilia Tom [facility] Note Date/Time April 13, 2025 7:06p m [facility] Medical Records Department [address] [place] [address] H&P Exam - Hospitalist 04/13/25 1840 MR#: [id number] Acct: [id number] Name: ALLIE MARIE Rep #:[id number] : 1935 89 From: Lilia Tom MD PCP: Dr. May Avitia MD Status:ADM IN [facility] - General General Date of Admission: 04/13/25 Date of Service: 04/13/25 Chief Complaint: Weakness, debility. 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 Workup in the ED included T97.8, heart rate 85, BP 132/64, respiratory rate 18, no percent room air with most recent repeat vitals heart rate 72, BP 147/63, respiratory rate 17, 98% on room air, CBC with WBC 7.3, hemoglobin 11.2, MCV 93.3, plate 166 without marked shift, coags with INR 1.4, PT 17, CMP with chloride 110, carbon oxide 20.7, BUN/creatinine 27/1.61, GFR 31, glucose 165, magnesium 2.4, hepatic profile withAST/LT 170/127, alk phos 0.83, troponin initial 86 with repeat delta 72, TSH 4.720, free T4 1, free T31.6, urinalysis with specific gravity 1.020, protein 100, occult blood 250, positive nitrite, leukocyte Estrace 500, urine RBCs and WBCs 25-50 with 4+ urine bacteria, urine culture pending per ED, chest x-ray with no acute cardiopulmonary findings, EKG with SR without acute evidence of ischemia. In ED patient ministered full-strength aspirin therapy, 1 L normal saline, Rocephin 1 g IV x 1. [facility] History Essential (primary) hypertension Stenosis of right vertebral artery Hyperlipidemia Obstructive hypertrophic cardiomyopathy Syncope and collapse History of CVA (cerebrovascular accident) (07/2017) Vertigo Depression Obstructive sleep apnea History of TIA (transient ischemic attack) Meniere disease History of asthma Home Medications ?Medication ?Instructions ?Recorded ?Last Taken ?Type aspirin 81 mg chewable tablet 81 mg PO DAILY@0800 heal th 07/13/17 04/12/25 History maintenance clopidogrel 75 mg tablet 75 mg PO DAILY blood thinner 07/13/17 04/12/25 History losartan 50 mg tablet 50 mg PO DAILY #90 tabs /0 12/1704/12/25 Rx levothyroxine 25 mcg tablet 25 mcg PO DAILY 04/13/25 0 04/12/25 History metoprolol succinate 100 mg 100 mg PO DAILY 04/13/25 0 04/12/25 History tablet,extended release 24 hr rosuvastatin 40 mg tablet 40 mg PO DAILY 04/13/2503/27 History Allergy/AdvReac Type Severity Reaction Status Date / Time hornet venom Allergy Anaphylaxis Verified 04/13/25 14:28 insect venom (yellow jacket) Allergy Anaphylaxis Verified 04/13/25 14:28 Penicillins Allergy Rash Verified 04/13/25 14:28 venom-wasp (Wasp Venom) Allergy Anaphylaxis Verified 04/13/25 14:28 Ztovmqk-OVH-BuW Reductase AdvReac muscle Verified 04/13/25 14:28 Inhibitor (Dehspsj-Vbg-Nhf weakness Reductase Inhibitor) tramadol AdvReac Other Verified 04/13/25 14:28 Family History Mother , age 55 sudden cardiac CAD (coronary artery disease) Sudden cardiac Father , age 77 Lung cancer Sister carotid artery surgery CAD (coronary artery disease) Surgical History History of Wendy fundoplication Social History (Updated 04/13/25 @ 19:[address] Lilia Tom MD) household members: spouse Smoking Status: Former smoker alcohol intake: current alcohol intake frequency: 0-2 drinks per day Alcohol type: wine substance use type: does not use caffeine: Yes Type: coffee Number of servings: 1 what type of physical activity do you participate in: none seatbelt use: always do you feel safe at home: Yes ROS ROS Narrative Admission Review of Systems: CONSTITUTIONAL: No weight loss, fever, chills, + weakness or fatigue. HEENT: + Lightheadedness. Eyes: No visual loss, blurred vision, double vision or yellow sclerae. Ears, Nose, Throat: No hearing loss, sneezing, congestion, runny nose or sore throat. SKIN: No rash or itching, lesions, wounds. CARDIOVASCULAR: + Lightheadedness. No chest pain, chest pressure or chest discomfort, palpitations, edema, orthopnea, syncopal events. RESPIRATORY: + Occasional episodes of trended dyspnea. No cough or sputum, wheezing, hemoptysis. GASTROINTESTINAL: + Anorexia. No nausea, vomiting or diarrhea, abdominal pain, melena, BRBPR. GENITOURINARY: + Decreased UOP. No dysuria, frequency, urgency or retention. NEUROLOGICAL: + Lightheadedness. No headache, syncope, paralysis, ataxia, numbness or tingling in the extremities, focal weakness, change in bowel or bladder control, seizure. MUSCULOSKELETAL: + muscle, back pain, joint pain or stiffness. HEMATOLOGIC: + Chronic anemia, easy bleeding/bruising. LYMPHATICS: No enlarged nodes. No history of splenectomy. PSYCHIATRIC: + History of anxiety and depression. ENDOCRINOLOGIC: No reports of sweating, cold or heat intolerance. No polyuria orpolydipsia. ALLERGIES: + History of anaphylaxis. Vital Signs Vital Signs Vital Signs: 04/13/25 14:28 04/13/25 14:31 04/13/25 14:55 Temperature 97.8 F 97.8 F Temperature Source Oral Oral Pulse Rate 85 85 Pulse Rate [Lying] Respiratory Rate 18 18 Respiratory Effort Normal Non-Labored Respiratory Pattern Normal Blood Pressure 132/64 H 132/64 H Blood Pressure [Lying] Blood Pressure Mean 86 86 Blood Pressure Mean [Lying] Pulse Ox 100 100 Oxygen Delivery Method Room Air Room Air 04/13/25 15:26 04/13/25 16:28 04/13/25 18:00 Temperature Temperature Source Pulse Rate 70 72 Pulse Rate [Lying] 76 Respiratory Rate 17 Respiratory Effort Respiratory Pattern Blood Pressure 126/61 H 147/63 H Blood Pressure [Lying] 81/49 L Blood Pressure Mean 82 91 Blood Pressure Mean [Lying] 59 Pulse Ox 98 98 Oxygen Delivery Method Room Air Room Air Weight Weight: 115 lb 1.301 oz Body Mass Index (BMI) 21.0 Physical Exam Narrative Physical Examination: General: Awake, alert, oriented x 3 and cooperative, seated upright in the ED bed, fatigued, no acute distress. Skin: Normal color, normal turgor, no icterus, no cyanosis except noted occasional staged bruising/abrasions. HEENT: AT/NC, EOMI, PERRLA, dry MM, no carotid bruits or JVD noted. Lungs: Diminished, bases, appropriate effort, no rales, ronchi or wheezing. Heart: Regular rate and rhythm; no gallop, rub audible. Abdomen: Soft, NTTP, ND, hyperactive BS, no appreciated HSM. Extremities: No cyanosis, clubbing, or edema. Neurological: Patient awake, alert, oriented as noted, cognitive function appears baseline intact; pupils equally reactive to light and accommodation, cranial nerves grossly normal, moving all 4 extremities, no focal deficits, strength moderately to severely globally decreased. Psychiatric: Affect appears fatigued otherwise normal, no acute evidence of depressive or anxiety feelings but does have chart documented history. Results Lab / Micro Data 04/13/25 15:15 04/13/25 15:15 Labs: Laboratory Results - last 24 hr 04/13/25 15:15: WBC 7.3, RBC 3.58 L, Hgb 11.2 L, Hct 33.4 L, MCV 93.3, MCH 31.3, MCHC 33.5, RDW Std Deviation 45.0 H, RDW Coeff of Krystyna 13.2, Plt Count 166, MPV 9.8, Immature Gran % (Auto) 0.400, Neut % (Auto) 70.3 H, Lymph % (Auto) 18.7 L, [place] % (Auto) 8.1, Eos % (Auto) 1.8, Baso % (Auto) 0.7, Absolute Neuts (auto) 5.2, Absolute Lymphs (auto) 1.37, Nucleated RBC % 0, Sodium 142, Potassium 3.9, Chloride 110 H, Carbon Dioxide 20.7 L, Anion Gap 12, BUN 27 H, Creatinine 1.61 H, Estim Creat Clear Calc 19.47 L, Est GFR (MDRD) Non-Af 31 L, BUN/Creatinine Ratio 16.6, Glucose 165 H, Calcium 9.5, Magnesium 2.4 H, Total Bilirubin 0.86, AST 170 H, ALT 127 H, Alkaline Phosphatase 53, Troponin T High Sens 86 H*, Total Protein 6.2, Albumin 3.8, Globulin 2.4, Albumin/Globulin Ratio 1.6, TSH 4.720 H, Free T4 1.00, Free T3 pg/dL 1.6 L 04/13/25 16:15: PT Cancelled, INR Cancelled, Urine Color Yellow, Urine Clarity Sl. Cloudy, Urine pH 6.0, Ur Specific [place] 1.020, Urine Protein 100 H, Urine Glucose (UA) Normal, Urine Ketones Negative, Urine Occult Blood 250 H, Urine Nitrite Positive H, Urine Bilirubin Negative, Urine Urobilinogen 4 H, Ur Leukocyte Esterase 500 H, Urine RBC 25-50 SEEN, Urine WBC 25-50 SEEN, Ur Squamous Epith Cells 0-5 SEEN, Ur Renal Epithelial Cell 0-5 SEEN, Urine Bacteria 4+, Fine Granular Casts 0-5 SEEN, Coarse Granular Casts 0-5 SEEN, Urine Mucus 0 SEEN 04/13/25 16:40: PT 17.0 H, INR 1.4 04/13/25 17:15: Troponin T Hi Sens 2 Hr 72 H* Imaging Radiology Impression Chest X-Ray 04/13/25 15:40 IMPRESSION: No acute cardiopulmonary process. Reading Location: 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 #1. Acute Debility, Weakness, Adult FTT secondary to Acute Complicated Urinary Tract Infection: Will admit to PCU, UA upon ED evaluation remarkable, pending UCx, continue judicious IVFs, monitor I/Os, continue IV Rocephin w/ transition as able pending sensitivities and speciation. PT/OT/case management consulted for discharge planning. #2. Indeterminate cardiac enzyme of unclear etiology: EKG in ED with SR without acute evidence of ischemia, CXR w/ no acute cardiopulmonary finding, initial trop 86 with repeat delta 72. Will maintain on a monitored bed to assure no acute myocardial infarction with serial cardiac enzymes and EKGs. FLP in AM. Magnesium level 2.4 per ED. Echocardiogram requested. Will continue aspirin/plavix/statin therapy. #3. Hypothyroidism with abnormal TSH: TSH 4.720 however free T4 1.0 although free T31.6, given current acute presentation likely would benefit from repeat thyroid function studies outpatient in the [facility] acute setting, will continue baseline levothyroxine regimen for now. #4. Obstructive hypertrophic cardiomyopathy: Most recent noted echocardiogram remotely 01/23/2017 with mild concentric LVH, EF 75%, stage I diastolic dysfunction, hyperdynamic LV, mild MVI, trivial TVR, RVSP 35 mmHg. Continued on aspirin, Plavix, statin, metoprolol, losartan home regimen. ECHO ordered given history and #2. #5. History of TIA/CVA with stenosis right vertebral artery: Will continue aspirin, Plavix, hypertensive regimen, statin therapy. #6. Hypertension: Continue home regimen including losartan, metoprolol with hold parameters as needed, PRN hydralazine. #7. Hyperlipidemia: Will continue patient home statin therapy. #8. Chronic normocytic anemia: Admission hemoglobin 11.2, MCV 93.3, baseline hemoglobin primarily 12 range, most recently 02/25/2024 hemoglobin 12.6 at that time, continue to trend CBC. #9. Chronic Kidney Disease Stage III, unclear subtype per GFR trending: Admission BUN/Cr 27/1.61, GFR 31, baseline renal function 1.1-1.6 primarily, repeat BMP in AM. #10. Anxiety and depression: Noted in history, current list does not appear to be on regimen, encourage continued outpatient follow-up. #11. GERD: Patient with history of Wendy fundoplication, per current list on a regimen, will have as needed Mylanta. #12. Chronic asthma: Currently not on any chronic inhaler regimen, will have as needed albuterol, encourage head of bed and I-S. #13. SUNNY: Does not use PAP therapy. #14. DVT prophylaxis: Lovenox. #15. CODE status: Patient HCPOA and living not in place but she notes her daughters would be her medical decision makers if necessary. He differences in these status, requested Full Code status. Given age and underlying history did discuss that she would have a poor prognosis and she understands this. Advanced Care Planning Face to Face Time: 16 minutes. Charges/Coding Visit Charges Inpatient E&M: 12540 Init Hosp L3 Procedures Hospitalists Procedures: 44225 Advncd Care Plan 30 Min 04/13/25 1906 <Electronically signed by Lilia Tom MD> Cosigner Signature (if applicable): CC: Dr. May Avitia MD; Dr. Lilia Tom MD~ Signed [facility] Work Phone: 1(781) 416-187305-18-2025 Evaluation note* Diagnosis Onset Date Resolution Status Admit Date Acute dehydration acute March h2024 6:44pm Generalized weakness acute April 13, 2025 6:44pm UTI (urinary tract infection) acute April 13, 2025 6:44pm [facility] Work Phone: 1(697) 145-688005-18-2025 Evaluation note* Diagnosis Onset Date Resolution Status Admit Date Acute dehydration inactive March 6:44pm Generalized weakness inactive April 13, 2025 6:44pm UTI (urinary tract infection) inacti ve April 13, 2025 6:44pm [facility] Work Phone: 1(498) 599-554105-18-2025 History and physical note [facility] Medical Records Department [address] [place] [address] H&P Exam - Hospitalist 04/13/25 1840 MR#: [id number] Acct: [id number] Name: ALLIE MARIE Rep #:[id number] : 1935 89 From: Lilia Tom MD PCP: Dr. May Avitia MD Status:ADM IN Location: U [id number]- 1 HPI - General General Date of Admission: 04/13/25 Date of Service: 04/13/25 Chief Complaint: Weakness, debility. 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 Workup in the ED included T97.8, heart rate 85, BP 132/64, respiratory rate 18, no percent room air with most recent repeat vitals heart rate 72, BP 147/63, respiratory rate 17, 98% on room air, CBC with WBC 7.3, hemoglobin 11.2, MCV 93.3, plate 166 without marked shift, coags with INR 1.4, PT 17, CMP with chloride 110, carbon oxide 20.7, BUN/creatinine 27/1.61, GFR 31, glucose 165, magnesium 2.4, hepatic profile withAST/LT 170/127, alk phos 0.83, troponin initial 86 with repeat delta 72, TSH 4.720, free T4 1, free T31.6, urinalysis with specific gravity 1.020, protein 100, occult blood 250, positive nitrite, leukocyte Estrace 500, urine RBCs and WBCs 25-50 with 4+ urine bacteria, urine culture pending per ED, chest x-ray with no acute cardiopulmonary findings, EKG with SR without acute evidence of ischemia. In ED patient ministered full-strength aspirintherapy, 1 L normal saline, Rocephin 1 g IV x 1. PFSH Medical History Essential (primary) hypertension Stenosis of right vertebral artery Hyperlipidemia Obstructive hypertrophic cardiomyopathy Syncope and collapse History of CVA (cerebrovascular accident) (07/2017) Vertigo Depression Obstructive sleep apnea History of TIA (transient ischemic attack) Meniere disease History of asthma Home Medications ?Medication ?Instructions ?Recorded ?Last Taken ?Type aspirin 81 mg chewable tablet 81 mg PO DAILY@0800 heal th 07/13/17 04/12/25 History maintenance clopidogrel 75 mg tablet 75 mg PO DAILY blood thinner 07/13/17 04/12/25 History losartan 50 mg tablet 50 mg PO DAILY #90 tabs 12/1704/12/25 Rx levothyroxine 25 mcg tablet 25 mcg PO DAILY 04/13/25 0 04/12/25 History metoprolol succinate 100 mg 100 mg PO DAILY 04/13/25 0 04/12/25 History tablet,extended release 24 hr rosuvastatin 40 mg tablet 40 mg PO DAILY 04/13/2503/27 History Allergy/AdvReac Type Severity Reaction Status Date / Time hornet venom Allergy Anaphylaxis Verified 04/13/25 14:28 insect venom (yellow jacket) Allergy Anaphylaxis Verified 04/13/25 14:28 Penicillins Allergy Rash Verified 04/13/25 14:28 venom-wasp (Wasp Venom) Allergy Anaphylaxis Verified 04/13/25 14:28 Frdhutu-LHX-BmC Reductase AdvReac muscle Verified 04/13/25 14:28 Inhibitor (Rphbutj-Lvm-Qig weakness Reductase Inhibitor) tramadol AdvReac Other Verified 04/13/25 14:28 Family History Mother , age 55 sudden cardiac CAD (coronary artery disease) Sudden cardiac Father , age 77 Lung cancer Sister carotid artery surgery CAD (coronary artery disease) Surgical History History of Wendy fundoplication Social History (Updated 04/13/25 @ 19:[address] Lilia Tom MD) household members: spouse Smoking Status: Former smoker alcohol intake: current alcohol intake frequency: 0-2 drinks per day Alcohol type: wine substance use type: does not use caffeine: Yes Type: coffee Number of servings: 1 what type of physical activity do you participate in: none seatbelt use: always do you feel safe at home: Yes ROS ROS Narrative Admission Review of Systems: CONSTITUTIONAL: No weight loss, fever, chills, + weakness or fatigue. HEENT: + Lightheadedness. Eyes: No visual loss, blurred vision, double vision or yellow sclerae. Ears, Nose, Throat: No hearing loss, sneezing, congestion, runny nose or sore throat. SKIN: No rash or itching, lesions, wounds. CARDIOVASCULAR: + Lightheadedness. No chest pain, chest pressure or chest discomfort, palpitations,edema, orthopnea, syncopal events. RESPIRATORY: + Occasional episodes of trended dyspnea. No cough or sputum, wheezing, hemoptysis. GASTROINTESTINAL: + Anorexia. No nausea, vomiting or diarrhea, abdominal pain, melena, BRBPR. GENITOURINARY: + Decreased UOP. No dysuria, frequency, urgency or retention. NEUROLOGICAL: + Lightheadedness. No headache, syncope, paralysis, ataxia, numbness or tingling in the extremities, focal weakness, change in bowel or bladder control, seizure. MUSCULOSKELETAL: + muscle, back pain, joint pain or stiffness. HEMATOLOGIC: + Chronic anemia, easy bleeding/bruising. LYMPHATICS: No enlarged nodes. No history of splenectomy. PSYCHIATRIC: + History of anxiety and depression. ENDOCRINOLOGIC: No reports of sweating, cold or heat intolerance. No polyuria orpolydipsia. ALLERGIES: + History of anaphylaxis. Vital Signs Vital Signs Vital Signs: 04/13/25 14:28 04/13/25 14:31 04/13/25 14:55 Temperature 97.8 F 97.8 F Temperature Source Oral Oral Pulse Rate 85 85 Pulse Rate [Lying] Respiratory Rate 18 18 Respiratory Effort Normal Non-Labored Respiratory Pattern Normal Blood Pressure 132/64 H 132/64 H Blood Pressure [Lying] Blood Pressure Mean 86 86 Blood Pressure Mean [Lying] Pulse Ox 100 100 Oxygen Delivery Method Room Air Room Air 04/13/25 15:26 04/13/25 16:28 04/13/25 18:00 Temperature Temperature Source Pulse Rate 70 72 Pulse Rate [Lying] 76 Respiratory Rate 17 Respiratory Effort Respiratory Pattern Blood Pressure 126/61 H 147/63 H Blood Pressure [Lying] 81/49 L Blood Pressure Mean 82 91 Blood Pressure Mean [Lying] 59 Pulse Ox 98 98 Oxygen Delivery Method Room Air Room Air Weight Weight: 115 lb 1.301 oz Body Mass Index (BMI) 21.0 Physical Exam Narrative Physical Examination: General: Awake, alert, oriented x 3 and cooperative, seated upright in the ED bed, fatigued, no acute distress. Skin: Normal color, normal turgor, no icterus, no cyanosis except noted occasional staged bruising/abrasions. HEENT: AT/NC, EOMI, PERRLA, dry MM, no carotid bruits or JVD noted. Lungs: Diminished, bases, appropriate effort, no rales, ronchi or wheezing. Heart: Regular rate and rhythm; no gallop, rub audible. Abdomen: Soft, NTTP, ND, hyperactive BS, no appreciated HSM. Extremities: No cyanosis, clubbing, or edema. Neurological: Patient awake, alert, oriented as noted, cognitive function appears baseline intact; pupils equally reactive to light and accommodation, cranial nerves grossly normal, moving all 4 extremities, no focal deficits, strength moderately to severely globally decreased. Psychiatric: Affect appears fatigued otherwise normal, no acute evidence of depressive or anxiety feelings but does have chart documented history. Results Lab / Micro Data 04/13/25 15:15 04/13/25 15:15 Labs: Laboratory Results - last 24 hr 04/13/25 15:15: WBC 7.3, RBC 3.58 L, Hgb 11.2 L, Hct 33.4 L, MCV 93.3, MCH 31.3, MCHC 33.5, RDW StdDeviation 45.0 H, RDW Coeff of Krystyna 13.2, Plt Count 166, MPV 9.8, Immature Gran % (Auto) 0.400, Neut% (Auto) 70.3 H, Lymph % (Auto) 18.7 L, [place] % (Auto) 8.1, Eos % (Auto) 1.8, Baso % (Auto) 0.7, Absolute Neuts (auto) 5.2, Absolute Lymphs (auto) 1.37, Nucleated RBC % 0, Sodium 142, Potassium 3.9, Chloride 110 H, Carbon Dioxide 20.7 L, Anion Gap 12, BUN 27 H, Creatinine 1.61 H, Estim Creat Clear Calc 19.47 L, Est GFR (MDRD) Non-Af 31 L, BUN/Creatinine Ratio 16.6, Glucose 165 H, Calcium 9.5, Magnesium 2.4 H, Total Bilirubin 0.86, AST 170 H, ALT 127 H, Alkaline Phosphatase 53, Troponin T High Sens 86 H*, Total Protein 6.2, Albumin 3.8, Globulin 2.4, Albumin/Globulin Ratio 1.6, TSH 4.720 H, Free T4 1.00, Free T3 pg/dL 1.6 L 04/13/25 16:15: PT Cancelled, INR Cancelled, Urine Color Yellow, Urine Clarity Sl. Cloudy, Urine pH6.0, Ur Specific [place] 1.020, Urine Protein 100 H, Urine Glucose (UA) Normal, Urine Ketones Negative, Urine Occult Blood 250 H, Urine Nitrite Positive H, Urine Bilirubin Negative, Urine Urobilinogen 4 H, Ur Leukocyte Esterase 500 H, Urine RBC 25-50 SEEN, Urine WBC 25-50 SEEN, Ur Squamous Epith Cells 0-5 SEEN, Ur Renal Epithelial Cell 0-5 SEEN, Urine Bacteria 4+, Fine Granular Casts 0-5 SEEN, Coarse Granular Casts 0-5 SEEN, Urine Mucus 0 SEEN 04/13/25 16:40: PT 17.0 H, INR 1.4 04/13/25 17:15: Troponin T Hi Sens 2 Hr 72 H* Imaging Radiology Impression Chest X-Ray 04/13/25 15:40 IMPRESSION: No acute cardiopulmonary process. 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 #1. Acute Debility, Weakness, Adult FTT secondary to Acute Complicated Urinary Tract Infection: Will admit to PCU, UA upon ED evaluation remarkable, pending UCx, continue judicious IVFs, monitor I/Os, continue IV Rocephin w/ transition as able pending sensitivities and speciation. PT/OT/case management consulted for discharge planning. #2. Indeterminate cardiac enzyme of unclear etiology: EKG in ED with SR without acute evidence of ischemia, CXR w/ no acute cardiopulmonary finding, initial trop 86 with repeat delta 72. Will maintain on a monitored bed to assure no acute myocardial infarction with serial cardiac enzymes and EKGs. FLP in AM. Magnesium level 2.4 per ED. Echocardiogram requested. Will continue aspirin/plavix/statintherapy. #3. Hypothyroidism with abnormal TSH: TSH 4.720 however free T4 1.0 although free T31.6, given current acute presentation likely would benefit from repeat thyroid function studies outpatient in the [facility] acute setting, will continue baseline levothyroxine regimen for now. #4. Obstructive hypertrophic cardiomyopathy: Most recent noted echocardiogram remotely 01/23/2017 with mild concentric LVH, EF 75%, stage I diastolic dysfunction, hyperdynamic LV, mild MVI, trivial TVR, RVSP 35 mmHg. Continued on aspirin, Plavix, statin, metoprolol, losartan home regimen. ECHO ordered given history and #2. #5. History of TIA/CVA with stenosis right vertebral artery: Will continue aspirin, Plavix, hypertensive regimen, statin therapy. #6. Hypertension: Continue home regimen including losartan, metoprolol with hold parameters as needed, PRN hydralazine. #7. Hyperlipidemia: Will continue patient home statin therapy. #8. Chronic normocytic anemia: Admission hemoglobin 11.2, MCV 93.3, baseline hemoglobin primarily 12 range, most recently 02/25/2024 hemoglobin 12.6 at that time, continue to trend CBC. #9. Chronic Kidney Disease Stage III, unclear subtype per GFR trending: Admission BUN/Cr 23/12.61, GFR 31, baseline renal function 1.1-1.6 primarily, repeat BMP in AM. #10. Anxiety and depression: Noted in history, current list does not appear to be on regimen, encourage continued outpatient follow-up. #11. GERD: Patient with history of Wendy fundoplication, per current list on a regimen, will have as needed Mylanta. #12. Chronic asthma: Currently not on any chronic inhaler regimen, will have as needed albuterol, encourage head of bed and I-S. #13. SUNNY: Does not use PAP therapy. #14. DVT prophylaxis: Lovenox. #15. CODE status: Patient HCPOA and living not in place but she notes her daughters would be her medical decision makers if necessary. He differences in these status, requested Full Code status. Given age and underlying history did discuss that she would have a poor prognosis and she understands this. Advanced Care Planning Face to Face Time: 16 minutes. Charges/Coding Visit Charges Inpatient E&M: 87182 Init Hosp L3 Procedures Hospitalists Procedures: 67837 Advncd Care Plan 30 Min 04/13/25 1906 Cosigner Signature (if applicable): CC: Dr. May Avitia MD; Dr. Lilia Tom MD~ Signed [facility]05-18-2025 Radiology Diagnostic study note [facility] Imaging Services [address] [place] [address] Chest PA and Lateral MR#: [id number] Acct: [id number] Name: ALLIE MARIE Rep #: [id number] : 1935 F 89 From: Shy Juares MD PCP: Dr. May Avitia MD Status: REG ER Study:Chest PA and Lateral Date of Exam: 04/13/25 Exam# [id number] Ordering Dr: Miladis Inman EXAM: XR Chest, 2 Views CLINICAL INDICATION: WEAKNESS TECHNIQUE: Frontal and lateral views of the chest. COMPARISON: No relevant prior studies available. FINDINGS: LUNGS AND PLEURAL SPACES: Unremarkable. No consolidation. No pneumothorax. HEART: Unremarkable. No cardiomegaly. MEDIASTINUM: Unremarkable. Normal mediastinal contour. BONES/JOINTS: Unremarkable. No acute fracture. RAD/Chest PA and Lateral IMPRESSION: No acute cardiopulmonary process. Reading Location: [id number] CC: Dr. May Avitia MD; PIYUSH Sapp ~ Save All Operator: Signed [facility]01-25-2021 NotePatient Outreach (COOCC3) ALLIE MARIE ([id number]) 1935 F Date Time Provider Department 12/21/20 LINNETTE TALAVERA3 During your visit today, we recorded the following information about you: Allergies As of Date: 12/21/2020 Noted Allergy Reaction NSAIDS (NON-STEROIDAL ANTI-INFLAM*07/11/2005 14 - Other: See Comments Comments: Bleeding ulcer in fauzia amounts VYGAXHJ-QMP-SMG REDUCTASE INHIBIT*12/06/2010 14 - Other: See Comments Comments: Muscle aches and weakness as well as joint pain. Had tried all of the statins and cannot tolerate. ZETIA (EZETIMIBE) 04/11/2012 14 - Other: See Comments Comments: Muscle pain and weakness. ALLER NA-ONYEF-NUA HORNET PROT 03/13/2007 Comments: dizzy, nausea, drop in bp BETA BLOCKERS (BETA-BLOCKERS (BET*05/28/2012 14 - Other: See Comments Comments: Contraindicated since she is receiving venom immunotherapy NIACIN 05/24/2012 9 - Itching Comments: flushing PENICILLINS 07/11/2005 4 - Hives 7 - Swelling VENOM-WASP 03/13/2007 Comments: dizzy, nausea, drop in bp VENOM-YELLOW HORNET 03/13/2007 Comments: dizzy, nausea, drop in bp VENOM-YELLOW JACKET 03/13/2007 Comments: dizzy, nausea, drop in bp Date Reviewed: 11/24/2019 Reviewed by: Roma Restrepo Ma - Fully Assessed Order(s):SARS-COVID VACCINE 1ST DOSE APPT [60165DSW] Order #: [id number] FUTURE Prescriptions as of 12/21/2020 Sig: CHOLECALCIFEROL(VITAMIN D3) 1* Take 1 tablet by mouth once d* LORATADINE 10 MG TABLET Take 1 tablet by mouth once d* LEVOTHYROXINE 50 MCG CAPSULE Take 1 capsule by mouth once * LOSARTAN 50 MG TABLET Take 1 tablet by mouth daily * MECLIZINE 12.5 MG TABLET Take 1 tablet by mouth as nee* ROSUVASTATIN 10 MG TABLET Take 10 mg by mouth once dara* BENZONATATE 200 MG CAPSULE Take 1 capsule by mouth three* PRAVASTATIN 40 MG TABLET take 1 tablet by mouth once d* PANTOPRAZOLE 40 MG TABLET,DEL* Take 1 tablet by mouth once d* FLUOXETINE 20 MG CAPSULE Take 1 capsule by mouth once * CLOPIDOGREL 75 MG TABLET take 1 tablet by mouth once d* DOXEPIN 25 MG CAPSULE Take 1-2 capsules by mouth at* ASPIRIN 81 MG TABLET,DELAYED * Take 1 tablet by mouth once d* TRIAMTERENE 37.5 MG-HYDROCHLO* Take 1 capsule by mouth once * PRAVASTATIN 40 MG TABLET Take 1 tablet by mouth once d* METOPROLOL SUCCINATE ER 100 M* Take 1 tablet by mouth once d* CLOPIDOGREL 75 MG TABLET Take 1 tablet by mouth once d* ALBUTEROL SULFATE HFA 90 MCG/* Inhale 2 Puffs as instructed * COMPOUNDED PRESCRIPTION Med Alert CPAP Initiate Auto PAP @ 5-15cm of* EPIPEN 0.3 MG/0.3 ML INJECTIO* use as directed for allergic * Problem List As Of Date 12/21/2020 Noted Resolved Mixed hyperlipidemia [E78.2] Anxiety state [F41.1] Depressive disorder [F32.9] ESOPHAGEAL REFLUX [K21.9] Meniere's disease [H81.09] GENERAL OSTEOARTHROSIS [M15.9] SOLITARY CYST OF BREAST [N60.09] More... DIAPHRAGMATIC HERNIA [K44.9] More... DIVERTICULOSIS OF COLON W/O BLEED [K57.30] ACTINIC KERATOSIS [L57.0] INT HEMORRHOID W/O COMPL [K64.8] MYALGIA AND MYOSITIS NOS [KFS4379] 09/07/2005 Essential hypertension [I10] 11/08/2005 Chest pain, unspecified [R07.9] 04/14/2006 04/03/2014 ALLERGIC RHINITIS NOS [J30.9] 01/15/2007 12/29/2008 ASTHMA UNSPECIFIED [J45.909] 01/15/2007 12/29/2008 Cough [R05] 01/23/2007 04/03/2014 ESOPHAGITIS, UNSPECIFIED [K20.90] 03/01/2007 TOXIC EFFECT VENOM [T63.91XA] 03/29/2007 OVERWEIGHT [E66.9] 07/14/2008 Asthma [J45.909] 02/04/2009 Osteoarthritis [M19.90] 06/21/2011 Osteopenia [M85.80] 09/19/2011 Vitamin D deficiency [E55.9] 09/19/2011 Lumbago [M54.5] 12/24/2012 Hot flash, menopausal [N95.1] 10/26/2015 Transient cerebral ischemia [G45.9] 08/29/2016 SUNNY (obstructive sleep apnea) [G47.33] 08/30/2016 History of CVA (cerebrovascular accident) [Z86.*03/07/2017 Encounter Status:Closed by [employer], PRODUSER on 12/24/20[facility] Consult note Author Bam Pride [facility] Note Date/Time June 13, 2025 7:24 pm [facility] Medical Records Department [address] [place] [address] Anesthesia Postop Eval I 06/13/251730 MR#: [id number] Acct: [id number] Name: ALLIE MARIE Rep #:[id number] : 1935 89 From: Bam BALDERAS PCP: Dr. Angel Juan MD Status :[place] [facility] [place]: C Location: [place] [address] Anesthesia: Postop Eval I Current Vital Signs Temperature: 36 F Pulse Rate: 75 Blood Pressure: 96/44 Respiratory Rate: 14 Pulse Ox: 96 Assessment Airway patent: Yes Spontaneous unlabored respirations: Yes nausea: No Vomiting: No Anesthesia Complication: No Fluid Hydration Crystalloid volume administer (ml): 500 Total IV fluid infused: 500 Progress Note Anesthesia document: Postop Eval 1 completed: Yes 06/13/251730 <Electronically signed by Bam Pride CRNA> Date _ Bam Pride LIE DETECTOR OPERATOR Kyaigner Signature: Date CC: ~ Signed [facility] Work Phone: Consult note Author Viet Srinivasan [facility] Note Date/Time June 13, 2025 7:21 pm [facility] Medical Records Department [address] [facility] [place] [address] Anesthesia Postop Eval II 06/13/251919 MR#: [id number] Acct: [id number] Name: ALLIE MARIE Rep #:[id number] : 1935 89 From: Viet Srinivasan MD PCP: Dr. Angel Juan MD Status :[place] [facility] [place]: C Location: [place] [address] Anesthesia Postop Eval I Sum Postop Eval Completion status Anesthesia document: Postop Eval 1 completed: Yes Anesthesia Postop Eval I Summary Anesthesia Postop Eval I Summary: Anesthesia Postop Eval I: Assessment Summary Airway patent Yes 06/13/25 17:31 LIE DETECTOR OPERATOR.[email or web address] Spontaneous unlabored Yes 06/13/25 17:31 LIE DETECTOR OPERATOR.JYUN respirations Mental status nausea No 06/13/25 17:31 LIE DETECTOR OPERATOR.JYUN Vomiting No 06/13/25 17:31 LIE DETECTOR OPERATOR.JYUN Anesthesia Postop Eval I: Fluid Summary Crystalloid volume administer 500 06/13/25 17:31 LIE DETECTOR OPERATOR.JYUN (ml) Colloids volume administered ( ml) Blood Product volume administered (ml) Total IV fluid infused 500 06/13/25 17:31 LIE DETECTOR OPERATOR.JYUN Anesthesia Postop Eval I: Summary Notes Anesthesia Complication No 06/13/25 17:31 LIE DETECTOR OPERATOR.JYUN Anesthesia Complication Comment: Post-operative progress note Anesthesia: Postop Eval II Evaluation Mental status: Awake and Calm Pain Level: 1 nausea: No Vomiting: No Complications Anesthesia Complication: No 06/13/251920 <Electronically signed by Viet ledezma MD> Date _ Viet Srinivasan MD Cosigner Signature: Date CC: ~ Signed [facility] Work Phone: Evaluation noteNo assessment information available [facility] Work Phone: Evaluation note* Diagnosis Onset Date Resolution Status Admit Date Acute dehydration acute March 6:44pm Generalized weakness acute April 13, 2025 6:44pm UTI (urinary tract infection) acute April 13, 2025 6:44pm [facility] Work Phone: History and physical note Author Lilia Tom [facility] Note Date/Time April 13, 2025 7:06p m [facility] Medical Records Department [address] [place] [address] H&P Exam - Hospitalist 04/13/25 1840 MR#: [id number] Acct: [id number] Name: ALLIE MARIE Rep #:[id number] : 1935 89 From: Liila Tom MD PCP: Dr. May Avitia MD Status:ADM IN Location: [place] [id number] HPI - General General Date of Admission: 04/13/25 Date of Service: 04/13/25 Chief Complaint: Weakness, debility. 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 Workup in the ED included T97.8, heart rate 85, BP 132/64, respiratory rate 18, no percent room air with most recent repeat vitals heart rate 72, BP 147/63, respiratory rate 17, 98% on room air, CBC with WBC 7.3, hemoglobin 11.2, MCV 93.3, plate 166 without marked shift, coags with INR 1.4, PT 17, CMP with chloride 110, carbon oxide 20.7, BUN/creatinine 27/1.61, GFR 31, glucose 165, magnesium 2.4, hepatic profile withAST/LT 170/127, alk phos 0.83, troponin initial 86 with repeat delta 72, TSH 4.720, free T4 1, free T31.6, urinalysis with specific gravity 1.020, protein 100, occult blood 250, positive nitrite, leukocyte Estrace 500, urine RBCs and WBCs 25-50 with 4+ urine bacteria, urine culture pending per ED, chest x-ray with no acute cardiopulmonary findings, EKG with SR without acute evidence of ischemia. In ED patient ministered full-strength aspirin therapy, 1 L normal saline, Rocephin 1 g IV x 1. [facility] Essential (primary) hypertension Stenosis of right vertebral artery Hyperlipidemia Obstructive hypertrophic cardiomyopathy Syncope and collapse History of CVA (cerebrovascular accident) (07/2017) Vertigo Depression Obstructive sleep apnea History of TIA (transient ischemic attack) Meniere disease History of asthma Home Medications ?Medication ?Instructions ?Recorded ?Last Taken ?Type aspirin 81 mg chewable tablet 81 mg PO DAILY@0800 heal th 07/13/17 04/12/25 History maintenance clopidogrel 75 mg tablet 75 mg PO DAILY blood thinner 07/13/17 04/12/25 History losartan 50 mg tablet 50 mg PO DAILY #90 tabs 12/0 12/1704/12/25 Rx levothyroxine 25 mcg tablet 25 mcg PO DAILY 04/13/25 0 04/12/25 History metoprolol succinate 100 mg 100 mg PO DAILY 04/13/25 0 04/12/25 History tablet,extended release 24 hr rosuvastatin 40 mg tablet 40 mg PO DAILY 04/13/2503/27 History Allergy/AdvReac Type Severity Reaction Status Date / Time hornet venom Allergy Anaphylaxis Verified 04/13/25 14:28 insect venom (yellow jacket) Allergy Anaphylaxis Verified 04/13/25 14:28 Penicillins Allergy Rash Verified 04/13/25 14:28 venom-wasp (Wasp Venom) Allergy Anaphylaxis Verified 04/13/25 14:28 Gkigbie-SZA-NhS Reductase AdvReac muscle Verified 04/13/25 14:28 Inhibitor (Jdimobs-Gar-Wrv weakness Reductase Inhibitor) tramadol AdvReac Other Verified 04/13/25 14:28 Family History Mother , age 55 sudden cardiac CAD (coronary artery disease) Sudden cardiac Father , age 77 Lung cancer Sister carotid artery surgery CAD (coronary artery disease) Surgical History History of Wendy fundoplication Social History (Updated 04/13/25 @ 19:[address] Lilia Tom MD) household members: spouse Smoking Status: Former smoker alcohol intake: current alcohol intake frequency: 0-2 drinks per day Alcohol type: wine substance use type: does not use caffeine: Yes Type: coffee Number of servings: 1 what type of physical activity do you participate in: none seatbelt use: always do you feel safe at home: Yes ROS ROS Narrative Admission Review of Systems: CONSTITUTIONAL: No weight loss, fever, chills, + weakness or fatigue. HEENT: + Lightheadedness. Eyes: No visual loss, blurred vision, double vision or yellow sclerae. Ears, Nose, Throat: No hearing loss, sneezing, congestion, runny nose or sore throat. SKIN: No rash or itching, lesions, wounds. CARDIOVASCULAR: + Lightheadedness. No chest pain, chest pressure or chest discomfort, palpitations, edema, orthopnea, syncopal events. RESPIRATORY: + Occasional episodes of trended dyspnea. No cough or sputum, wheezing, hemoptysis. GASTROINTESTINAL: + Anorexia. No nausea, vomiting or diarrhea, abdominal pain, melena, BRBPR. GENITOURINARY: + Decreased UOP. No dysuria, frequency, urgency or retention. NEUROLOGICAL: + Lightheadedness. No headache, syncope, paralysis, ataxia, numbness or tingling in the extremities, focal weakness, change in bowel or bladder control, seizure. MUSCULOSKELETAL: + muscle, back pain, joint pain or stiffness. HEMATOLOGIC: + Chronic anemia, easy bleeding/bruising. LYMPHATICS: No enlarged nodes. No history of splenectomy. PSYCHIATRIC: + History of anxiety and depression. ENDOCRINOLOGIC: No reports of sweating, cold or heat intolerance. No polyuria orpolydipsia. ALLERGIES: + History of anaphylaxis. Vital Signs Vital Signs Vital Signs: 04/13/25 14:28 04/13/25 14:31 04/13/25 14:55 Temperature 97.8 F 97.8 F Temperature Source Oral Oral Pulse Rate 85 85 Pulse Rate [Lying] Respiratory Rate 18 18 Respiratory Effort Normal Non-Labored Respiratory Pattern Normal Blood Pressure 132/64 H 132/64 H Blood Pressure [Lying] Blood Pressure Mean 86 86 Blood Pressure Mean [Lying] Pulse Ox 100 100 Oxygen Delivery Method Room Air Room Air 04/13/25 15:26 04/13/25 16:28 04/13/25 18:00 Temperature Temperature Source Pulse Rate 70 72 Pulse Rate [Lying] 76 Respiratory Rate 17 Respiratory Effort Respiratory Pattern Blood Pressure 126/61 H 147/63 H Blood Pressure [Lying] 81/49 L Blood Pressure Mean 82 91 Blood Pressure Mean [Lying] 59 Pulse Ox 98 98 Oxygen Delivery Method Room Air Room Air Weight Weight: 115 lb 1.301 oz Body Mass Index (BMI) 21.0 Physical Exam Narrative Physical Examination: General: Awake, alert, oriented x 3 and cooperative, seated upright in the ED bed, fatigued, no acute distress. Skin: Normal color, normal turgor, no icterus, no cyanosis except noted occasional staged bruising/abrasions. HEENT: AT/NC, EOMI, PERRLA, dry MM, no carotid bruits or JVD noted. Lungs: Diminished, bases, appropriate effort, no rales, ronchi or wheezing. Heart: Regular rate and rhythm; no gallop, rub audible. Abdomen: Soft, NTTP, ND, hyperactive BS, no appreciated HSM. Extremities: No cyanosis, clubbing, or edema. Neurological: Patient awake, alert, oriented as noted, cognitive function appears baseline intact; pupils equally reactive to light and accommodation, cranial nerves grossly normal, moving all 4 extremities, no focal deficits, strength moderately to severely globally decreased. Psychiatric: Affect appears fatigued otherwise normal, no acute evidence of depressive or anxiety feelings but does have chart documented history. Results Lab / Micro Data 04/13/25 15:15 04/13/25 15:15 Labs: Laboratory Results - last 24 hr 04/13/25 15:15: WBC 7.3, RBC 3.58 L, Hgb 11.2 L, Hct 33.4 L, MCV 93.3, MCH 31.3, MCHC 33.5, RDW Std Deviation 45.0 H, RDW Coeff of Krystyna 13.2, Plt Count 166, MPV 9.8, Immature Gran % (Auto) 0.400, Neut % (Auto) 70.3 H, Lymph % (Auto) 18.7 L, [place] % (Auto) 8.1, Eos % (Auto) 1.8, Baso % (Auto) 0.7, Absolute Neuts (auto) 5.2, Absolute Lymphs (auto) 1.37, Nucleated RBC % 0, Sodium 142, Potassium 3.9, Chloride 110 H, Carbon Dioxide 20.7 L, Anion Gap 12, BUN 27 H, Creatinine 1.61 H, Estim Creat Clear Calc 19.47 L, Est GFR (MDRD) Non-Af 31 L, BUN/Creatinine Ratio 16.6, Glucose 165 H, Calcium 9.5, Magnesium 2.4 H, Total Bilirubin 0.86, AST 170 H, ALT 127 H, Alkaline Phosphatase 53, Troponin T High Sens 86 H*, Total Protein 6.2, Albumin 3.8, Globulin 2.4, Albumin/Globulin Ratio 1.6, TSH 4.720 H, Free T4 1.00, Free T3 pg/dL 1.6 L 04/13/25 16:15: PT Cancelled, INR Cancelled, Urine Color Yellow, Urine Clarity Sl. Cloudy, Urine pH 6.0, Ur Specific [place] 1.020, Urine Protein 100 H, Urine Glucose (UA) Normal, Urine Ketones Negative, Urine Occult Blood 250 H, Urine Nitrite Positive H, Urine Bilirubin Negative, Urine Urobilinogen 4 H, Ur Leukocyte Esterase 500 H, Urine RBC 25-50 SEEN, Urine WBC 25-50 SEEN, Ur Squamous Epith Cells 0-5 SEEN, Ur Renal Epithelial Cell 0-5 SEEN, Urine Bacteria 4+, Fine Granular Casts 0-5 SEEN, Coarse Granular Casts 0-5 SEEN, Urine Mucus 0 SEEN 04/13/25 16:40: PT 17.0 H, INR 1.4 04/13/25 17:15: Troponin T Hi Sens 2 Hr 72 H* Imaging Radiology Impression Chest X-Ray 04/13/25 15:40 IMPRESSION: No acute cardiopulmonary process. Reading Location: 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 #1. Acute Debility, Weakness, Adult FTT secondary to Acute Complicated Urinary Tract Infection: Will admit to PCU, UA upon ED evaluation remarkable, pending UCx, continue judicious IVFs, monitor I/Os, continue IV Rocephin w/ transition as able pending sensitivities and speciation. PT/OT/case management consulted for discharge planning. #2. Indeterminate cardiac enzyme of unclear etiology: EKG in ED with SR without acute evidence of ischemia, CXR w/ no acute cardiopulmonary finding, initial trop 86 with repeat delta 72. Will maintain on a monitored bed to assure no acute myocardial infarction with serial cardiac enzymes and EKGs. FLP in AM. Magnesium level 2.4 per ED. Echocardiogram requested. Will continue aspirin/plavix/statin therapy. #3. Hypothyroidism with abnormal TSH: TSH 4.720 however free T4 1.0 although free T31.6, given current acute presentation likely would benefit from repeat thyroid function studies outpatient in the [facility] acute setting, will continue baseline levothyroxine regimen for now. #4. Obstructive hypertrophic cardiomyopathy: Most recent noted echocardiogram remotely 01/23/2017 with mild concentric LVH, EF 75%, stage I diastolic dysfunction, hyperdynamic LV, mild MVI, trivial TVR, RVSP 35 mmHg. Continued on aspirin, Plavix, statin, metoprolol, losartan home regimen. ECHO ordered given history and #2. #5. History of TIA/CVA with stenosis right vertebral artery: Will continue aspirin, Plavix, hypertensive regimen, statin therapy. #6. Hypertension: Continue home regimen including losartan, metoprolol with hold parameters as needed, PRN hydralazine. #7. Hyperlipidemia: Will continue patient home statin therapy. #8. Chronic normocytic anemia: Admission hemoglobin 11.2, MCV 93.3, baseline hemoglobin primarily 12 range, most recently 02/25/2024 hemoglobin 12.6 at that time, continue to trend CBC. #9. Chronic Kidney Disease Stage III, unclear subtype per GFR trending: Admission BUN/Cr 27/1.61, GFR 31, baseline renal function 1.1-1.6 primarily, repeat BMP in AM. #10. Anxiety and depression: Noted in history, current list does not appear to be on regimen, encourage continued outpatient follow-up. #11. GERD: Patient with history of Wendy fundoplication, per current list on a regimen, will have as needed Mylanta. #12. Chronic asthma: Currently not on any chronic inhaler regimen, will have as needed albuterol, encourage head of bed and I-S. #13. SUNNY: Does not use PAP therapy. #14. DVT prophylaxis: Lovenox. #15. CODE status: Patient HCPOA and living not in place but she notes her daughters would be her medical decision makers if necessary. He differences in these status, requested Full Code status. Given age and underlying history did discuss that she would have a poor prognosis and she understands this. Advanced Care Planning Face to Face Time: 16 minutes. Charges/Coding Visit Charges Inpatient E&M: 46167 Init Hosp L3 Procedures Hospitalists Procedures: 72253 Advncd Care Plan 30 Min 04/13/25 0108 <Electronically signed by Lilia Tom MD> Cosigner Signature (if applicable): CC: Dr. May Avitia MD; Dr. Lilia Tom MD~ Signed [facility] Work Phone: Reason for referral (narrative)No reason for referral information availableWShelby [facility] Work Phone: Summary Purpose Family History No Family History Records Found Relationship Condition Age at Onset Recorded Date/T sakina mother Coronary artery disease Unknown Sudden cardiac Unknown father Malignant neoplasm of lung Unknown sister Unknown Coronary artery disease Unknown Advance Directives No Advanced Directives Records Found Advance Directive Response Recorded Date/ Time Advance Directives Yes June 22 3:25pm Living Will No September 13 11:38am Power of Apartment Manager No September 13, 2021 11:38am Advance Directive Response Recorded Date/ Time Advance Directives Yes June 22 4:25pm Living Will No February 25, 2024 8:52pm Power of Apartment Manager No February 24 8:52pm Advance Directive Response Recorded Date/ Time Do you have a Healthcare Power of Apartment Manager? Yes April 13, 2025 2:55pm Advance Directives Yes June 22 4:25pm Advance Directive Response Recorded Date/ Time Do you have a Healthcare Power of Apartment Manager? No April 13, 2025 8:06pm Advance Directives Yes June 22 4:25pm Advance Directive Response Recorded Date/ Time Do you have a Healthcare Power of Apartment Manager? No April 13, 2025 8:06pm Do you have a Healthcare Power of Apartment Manager? Yes June 12, 2025 4:21pm Advance Directives Yes June 22 4:25pm Chief Complaint and Reason for Visit Chief Complaint BACK PAIN Chief Complaint Admit Date ADULT FTT, UTI, ELEVATED TROP April 13, 2025 6:44pm Reason for Visit Admit Date Acute dehydration April 13, 2025 6:44p m Generalized weakness April 13, 2025 6:44 pm UTI (urinary tract infection) April 13, 2025 6:44pm Chief Complaint Admit Date ADULT FTT, UTI, ELEVATED TROP April 13, 2025 6:44pm ADULT FTT, UTI, ELEVATED TROP April 14, 2025 5:25pm Chief Complaint Admit Date ADULT FTT, UTI, ELEVATED TROP April 13, 2025 6:44pm ADULT FTT, UTI, ELEVATED TROP April 14, 2025 5:25pm INTERNAL ORDER May 28, 2025 1:43p m Chief Complaint Admit Date ADULT FTT, UTI, ELEVATED TROP April 13, 2025 6:44pm ADULT FTT, UTI, ELEVATED TROP April 14, 2025 5:25pm INTERNAL ORDER May 28, 2025 1:43p m Gross hematuria June 12, 2025 1:46 pm Additional Source Comments INFORMATION SOURCE (unrecogn ized section and content) DATE CREATED AUTHOR 12/13/2021 [facility] DATE CREATED AUTHOR AUTHOR'S ORGANIZ ATION 06/25/2025 [facility] Goals (unrecognized section and content) Goals may be documented in a n alternate sectionGoals may be documented in an alternate sectionGoals may be documented in an alternate section Care Teams (unrecognized sec tion and content) Team Status: Active Member Role Status Dates Dr. May Avitia MD Primary Care Provider Active Team Status: Inactive Member Role Status Dates Dr. May Avitia MD Primary Care Provider Active Start: April 13, 2025 End: April 15, 2025 Dr. Ant Vale , DO Emergency Provider Activ e Start: April 13, 2025 End: April 15, 2025 Dr. Lilia Tom MD Admit Provider Active St art: April 13, 2025 End: April 15, 2025 Dr. Lilia Tom MD Other Provider Active St art: April 13, 2025 End: April 15, 2025 Dr. Ken Parker DO Attending Provider Active Start: April 13, 2025 End: April 15, 2025 Team Status: Active Member Role Status Dates Dr. May Avitia MD Primary Care Provider Active Start: April 14, 2025 Dr. Philip Martinez MD Attending Provider Active S tart: April 14, 2025 Team Status: Active Member Role Status Dates Dr. May Avitia MD Primary Care Provider Active Start: April 14, 2025 Dr. Ant Vale DO Emergency Provider Activ e Start: April 14, 2025 Dr. Lilia Tom MD Admit Provider Active St art: April 14, 2025 Dr. Lilia Tom MD Other Provider Active St art: April 14, 2025 Dr. Ken Parker DO Attending Provider Active Start: April 14, 2025 Dr. Ken Parker , Other Provider Active S tart: April 14, 2025 Team Status: Active Member Role Status Dates Dr. May Avitia MD Family Provider Active Dr. May Avitia MD Primary Care Provider Active Team Status: Inactive Member Role Status Dates Dr. May Avitia MD Primary Care Provider Active Dr. Aime Fernandes DO Emergency Provider Active Team Status: Active Member Role Status Dates Dr. May Avitia MD Primary Care Provider Active Start: April 13, 2025 Dr. Ant Vale DO Emergency Provider Activ e Start: April 13, 2025 Dr. Lilia Tom MD Admit Provider Active St art: April 13, 2025 Dr. Lilia Tom MD Attending Provider Active Start: April 13, 2025 Dr. Lilia Tom MD Other Provider Active St art: April 13, 2025 Team Status: Active Member Role/Relationship Status Dates Dr. May Avitia MD Primary Care Provider Active Team Status: Inactive Member Role/Relationship Status Dates Dr. May Avitia MD Primary Care Provider Active Start: April 13, 2025 End: April 15, 2025 Dr. Ant Vale DO Emergency Provider Activ e Start: April 13, 2025 End: April 15, 2025 Dr. Lilia Tom MD Admit Provider Active St art: April 13, 2025 End: April 15, 2025 Dr. Lilia Tom MD Other Provider Active St art: April 13, 2025 End: April 15, 2025 Dr. Ken Parker DO Attending Provider Active Start: April 13, 2025 End: April 15, 2025 Team Status: Active Member Role/Relationship Status Dates Dr. May Avitia MD Primary Care Provider Active Start: April 14, 2025 Dr. Philip Martinez MD Attending Provider Active S tart: April 14, 2025 Team Status: Active Member Role/Relationship Status Dates Dr. May Avitia MD Primary Care Provider Active Start: April 14, 2025 Dr. Ant Vale DO Emergency Provider Activ e Start: April 14, 2025 Dr. Lilia Tom MD Admit Provider Active St art: April 14, 2025 Dr. Lilia Tom MD Other Provider Active St art: April 14, 2025 Dr. Ken Parker DO Attending Provider Active Start: April 14, 2025 Dr. Ken Parker DO Other Provider Active S tart: April 14, 2025 Team Status: Inactive Member Role/Relationship Status Dates Dr. May Avitia MD Primary Care Provider Active Start: May 28, 2025 End: May 28, 2025 Boubacar Mauricio AQUA AMMONIA OPERATOR, AQUA AMMONIA OPERATOR-C Attending Provider Active Start: May 28, 2025 End: May 28, 2025 Boubacar Mauricio AQUA AMMONIA OPERATOR, AQUA AMMONIA OPERATOR-C Referring Provider Active Start: May 28, 2025 End: May 28, 2025 Team Status: Active Member Role/Relationship Status Dates Dr. Angel Juan MD Primary Care Provider Acti ve Team Status: Active Member Role/Relationship Status Dates Dr. May Avitia MD Primary Care Provider Active Start: June 12, 2025 Dr. Akhil Leslie MD Attending Provider Active Start: June 12, 2025 Dr. Akhil Leslie MD Referring Provider Active Start: June 12, 2025 Team Status: Inactive Member Role/Relationship Status Dates Dr. Akhil Leslie MD Attending Provider Active Start: June 13, 2025 End: June 13, 2025 Dr. Akhil Leslie MD Referring Provider Active Start: June 13, 2025 End: June 13, 2025 Dr. Angel Juan MD Primary Care Provider Acti ve Start: June 13, 2025 End: June 13, 2025 Team Status: Inactive Member Role/Relationship Status Dates Dr. May Avitia MD Primary Care Provider Active Start: June 12, 2025 End: June 12, 2025 Dr. Akhil Leslie MD Attending Provider Active Start: June 12, 2025 End: June 12, 2025 Dr. Akhil Leslie MD Referring Provider Active Start: June 12, 2025 End: June 12, 2025 FOR RECORDS PERTAINING TO PATIENTS WHO ARE OR HAVE BEEN ENROLLED IN A CHEMICAL DEPENDENCY/SUBSTANCEABUSE PROGRAM, SOME INFORMATION MAY BE OMITTED. This clinical summary was aggregated from multiple sources. Caution should be exercised in using it in the provision of clinical care. This summary normalizes information from multiple sources, and as a consequence, information in this document may materially change the coding, format and clinical context of patient data. In addition, data may be omitted in some cases. CLINICAL DECISIONS SHOULD BE BASED ON THE PRIMARY CLINICAL RECORDS. [facility]. provides no warranty or guarantee of the accuracy or completeness of information in this document.
[2025-06-27] MEDS: Lactated Ringers 1,000 ML 15 ML IV (06:44)
--- NOTE | 2025-06-27 06:57 | PRE.ANES_ITS ---
ASA Classification* ASA Classification ASA Classification: 3 Assessment & Plan Anesthesia* Anesthesia Assessment Anesthesia Assessment: Discussed sedation and/or anesthesia options, risks, benefits, and alternatives with patient/parents/legal guardian/POA. Questions invited. The patient/parents/legal guardian/POA seems to understand and agrees to proceed with anesthesia plan. Reviewed the physical assessment, medical history, allergy history and patient home medications list prior to surgery/procedure/anesthetic and documented any changes. Performed airway and anesthesia risk assessments. Anesthesia Type Anesthesia Type: General History Source History Obtained from:: Patient and Chart Anesthesia Focused Assessment* Temperature: 98 F Pulse Rate: 61 Blood Pressure: 159/54 Respiratory Rate: 16 Pulse Ox: 100 Oxygen Delivery Method: Room Air Airway Assessment Mouth opens: >3 cm Mallampati Score: IV Teeth Condition: Caps/Crowns (Patient has a couple crowns upper molars. They are tight.) Neck Range of motion (ROM): Limited ROM (Slight Decrease) Labs Anesthesia Preop lab: CBC WBC 6.8 K/mm3 (4.4-11.0) 06/23/25 16:39 06/23/25 RBC 3.17 M/mm3 (4.2-5.4) L 06/23/25 16:39 06/23/25 Hgb 9.7 g/dL (12.0-15.0) L 06/23/25 16:39 06/23/25 Hct 30.3 % (37-47) L 06/23/25 16:39 06/23/25 Plt Count 240 K/mm3 (150-450) 06/23/25 16:39 06/23/25 CHEMISTRY Potassium 4.3 mmol/L (3.3-5.1) 04/14/25 05:39 04/14/25 Sodium 142 mmol/L (133-145) 04/14/25 05:39 04/14/25 Magnesium 1.9 mg/dL (1.5-2.2) 04/13/25 17:15 04/13/25 BUN 25 mg/dL (4-19) H 04/14/25 05:39 04/14/25 Creatinine 1.36 mg/dL (0.70-1.20) H 04/14/25 05:39 Glucose 91 mg/dL (70-99) 04/14/25 05:39 04/14/25 POC Glucose 143 mg/dL (70-110) H 04/21/19 23:02 04/21/19 TSH 6.240 uIU/mL (0.300-4.200) H 05/28/25 13:48 COAG PT 17.0 SECONDS (11.7-14.9) H 04/13/25 16:40 03/27 07/21 Pre-Assessment Diagnosis/Proposed Procedure Planned Operative Procedure(s): lap nephroureterectomy right TURB Anesthesia History 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 When Was Last Pacemaker Check QUESTION #4 FULL TEXT: You/Your Family Experience fever (hyperthermia) with Anesthesia Last Oral Intake Last Oral intake: Last Oral Intake NPO since 20:00 06/27/25 06:22 Meds taken in AM with sips of Yes 06/27/25 06:22 water? 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 Female Yes 06/18/25 08:24 HX of Motion Sickness No 06/18/25 08:24 HX of N/V After Surgery No 06/18/25 08:24 Non-Smoker Yes 06/18/25 08:24 Duration of Surgery greater Yes 06/18/25 08:24 than 60 minutes Number of Risk Factors 3 06/18/25 08:24 PONV Score Moderate Risk 06/18/25 08:24 Height & Weight Height & Weight: Anesthesia: Height & Weight Height 5 ft 2 in 06/27/25 06:22 Weight: 51.8 kg 06/27/25 06:22 Body Mass Index (BMI) 20.9 06/27/25 06:22 Respiratory Assessment Respiratory Assessment - 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 Has anyone observed you stop No 06/18/25 08:24 breathing during sleep? STOP Results Negative 06/18/25 08:24 QUESTION #5 FULL TEXT : Do you snore loudly (louder than talking or can be heard through closed doors)? 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 Specify any problems Hx of Preganancy in last 3 No 06/18/25 08:24 Months Nurse Filling Out Transfusion DSCHRIBER 06/18/25 08:24 & Questions: Date: 06/18/25 06/18/25 08:24 Time: 08:26 06/18/25 08:24 Patient unable to answer at this time (ie. 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: /Reproductive Hx- restaurant management internship Hx Now No 06/18/25 08:24 Gestational Age (in weeks): EDC: Hx Hx Para Hx Section SAB No 06/18/25 08:24 Active Medications Active Medications: Current Medications Generic Name Dose Route Start Last Admin Trade Name Freq PRN Reason Stop Dose Admin Cefazolin Sodium 2 gm/ Sodium 110 mls @ 200 mls/hr 06/27/25 07:30 Chloride IV 06/27/25 08:02 INTRAOP ONE Lactated Ringer's 1,000 mls @ 15 mls/hr 06/27/25 06:15 06/27/25 06:44 IV 15 mls/hr .Q48H ROJAS Administration PFSH Medical History Wears glasses Open wound Thyroid disease Walker as ambulation aid Ambulates with cane Arthritis DVT (deep venous thrombosis) High cholesterol History of ulceration Non-smoker Shortness of breath on exertion History of echocardiogram Cardiology follow-up encounter UTI (urinary tract infection) Generalized weakness Essential (primary) hypertension Stenosis of right vertebral artery Obstructive hypertrophic cardiomyopathy Syncope and collapse History of CVA (cerebrovascular accident) (07/2017) Vertigo Depression History of TIA (transient ischemic attack) Meniere disease History of asthma Home Medications ?Medication ?Instructions ?Recorded ?Last Taken ?Type aspirin 81 mg chewable tablet 81 mg PO DAILY@0800 heal th 07/13/17 06/12/25 History maintenance clopidogrel 75 mg tablet 75 mg PO DAILY blood thinner 07/13/17 06/12/25 History losartan 50 mg tablet 50 mg PO DAILY blood pressur e #90 10/27/21 06/27/25 05:15 Rx tabs levothyroxine 25 mcg tablet 50 mcg PO DAILY thyroid 06/27/25 05:15 History metoprolol succinate 100 mg 100 mg PO DAILY blood pres sure 04/13/25 06/27/25 05:15 History tablet,extended release 24 hr rosuvastatin 40 mg tablet 40 mg PO DAILY cholesterol 0 04/13/25 06/26/25 History ibuprofen 400 mg tablet 400 mg PO Q6H PRN pain #14 t abs 06/13/25 Unknown Rx albuterol sulfate 90 mcg/actuation 2 inh inhalation Q6 H PRN shortness 06/18/25 Unknown History breath activated powder inhaler of breath or wheezing Allergy/AdvReac Type Severity Reaction Status Date / Time hornet venom Allergy Anaphylaxis Verified 06/27/25 06:20 insect venom (yellow jacket) Allergy Anaphylaxis Verified 06/27/25 06:20 Penicillins Allergy Rash Verified 06/27/25 06:20 venom-wasp (Wasp Venom) Allergy Anaphylaxis Verified 06/27/25 06:20 Xsfbjkn-JDW-HbD Reductase AdvReac muscle Verified 06/27/25 06:20 Inhibitor (Xiziygc-Mxk-Heo weakness Reductase Inhibitor) tramadol AdvReac Other Verified 06/27/25 06:20 Family History Mother , age 55 sudden cardiac CAD (coronary artery disease) Sudden cardiac Father , age 77 Lung cancer Sister carotid artery surgery CAD (coronary artery disease) Surgical History Hx of cystoscopy Hx of left cataract extraction Hx of right cataract extraction History of esophagogastroduodenoscopy (EGD) Hx of colonoscopy History of carpal tunnel surgery of right wrist Hx of total knee arthroplasty Hx of total knee replacement History of appendectomy History of Wendy fundoplication Social History household members: spouse Smoking Status: Former smoker alcohol intake: current alcohol intake frequency: 0-2 drinks per day Alcohol type: wine substance use type: does not use caffeine: Yes Type: coffee Number of servings: 1 what type of physical activity do you participate in: none seatbelt use: always do you feel safe at home: Yes Review of Systems (Anesthesia) ROS Narrative System reviewed and no additional complaints, except as documented.
--- NOTE | 2025-06-27 06:57 | PCM.HP.STD ---
HPI - General General Date of Admission: 06/27/25 Date of Service: 06/27/25 Chief Complaint: Right renal pelvic mass urothelial carcinoma HPI Narrative ALLIE MARIE, is a 89 F who presents for a laparoscopic right nephro ureterectomy organ to do a resection of the ureteral orifice and then a right nephro ureterectomy for a urothelial carcinoma in the right renal pelvis it has been bleeding. [facility] Medical History (Updated 06/18/25 @ 08:31 by Gogo Baker) Wears glasses Open wound Thyroid disease Walker as ambulation aid Ambulates with cane Arthritis DVT (deep venous thrombosis) High cholesterol History of ulceration Non-smoker Shortness of breath on exertion History of echocardiogram Cardiology follow-up encounter UTI (urinary tract infection) Generalized weakness Essential (primary) hypertension Stenosis of right vertebral artery Obstructive hypertrophic cardiomyopathy Syncope and collapse History of CVA (cerebrovascular accident) (07/2017) Vertigo Depression History of TIA (transient ischemic attack) Meniere disease History of asthma Home Medications ?Medication ?Instructions ?Recorded ?Last Taken ?Type aspirin 81 mg chewable tablet 81 mg PO DAILY@0800 health 07/13/17 06/12/25 History maintenance clopidogrel 75 mg tablet 75 mg PO DAILY blood thinner 07/13/17 06/12/25 History losartan 50 mg tablet 50 mg PO DAILY blood pressure #90 10/27/21 06/27/25 05:15 Rx tabs levothyroxine 25 mcg tablet 50 mcg PO DAILY thyroid 04/13/25 06/27/25 05:15 History metoprolol succinate 100 mg 100 mg PO DAILY blood pressure 04/13/25 06/27/25 05:15 History tablet,extended release 24 hr rosuvastatin 40 mg tablet 40 mg PO DAILY cholesterol 04/13/25 06/26/25 History ibuprofen 400 mg tablet 400 mg PO Q6H PRN pain #14 tabs 06/13/25 Unknown Rx albuterol sulfate 90 mcg/actuation 2 inh inhalation Q6H PRN shortness 06/18/25 Unknown History breath activated powder inhaler of breath or wheezing Allergy/AdvReac Type Severity Reaction Status Date / Time hornet venom Allergy Anaphylaxis Verified 06/27/25 06:20 insect venom (yellow jacket) Allergy Anaphylaxis Verified 06/27/25 06:20 Penicillins Allergy Rash Verified 06/27/25 06:20 venom-wasp (Wasp Venom) Allergy Anaphylaxis Verified 06/27/25 06:20 Xsrwkly-GOU-PmO Reductase AdvReac muscle Verified 06/27/25 06:20 Inhibitor (Graeqlk-Kcq-Jko weakness Reductase Inhibitor) tramadol AdvReac Other Verified 06/27/25 06:20 Family History Mother , age 55 sudden cardiac CAD (coronary artery disease) Sudden cardiac Father , age 77 Lung cancer Sister carotid artery surgery CAD (coronary artery disease) Surgical History (Updated 06/18/25 @ 08:31 by Gogo Baker) Hx of cystoscopy Hx of left cataract extraction Hx of right cataract extraction History of esophagogastroduodenoscopy (EGD) Hx of colonoscopy History of carpal tunnel surgery of right wrist Hx of total knee arthroplasty Hx of total knee replacement History of appendectomy History of Wendy fundoplication Social History household members: spouse Smoking Status: Former smoker alcohol intake: current alcohol intake frequency: 0-2 drinks per day Alcohol type: wine substance use type: does not use caffeine: Yes Type: coffee Number of servings: 1 what type of physical activity do you participate in: none seatbelt use: always do you feel safe at home: Yes Vital Signs Vital Signs Vital Signs: 06/27/25 06:22 06/27/25 06:22 Temperature 98 F Temperature Source Temporal Pulse Rate 61 Respiratory Rate 16 Respiratory Pattern Normal Blood Pressure 159/54 H Blood Pressure Mean 89 Blood Pressure Source Monitor Blood Pressure Position Semi-Fowlers Blood Pressure Location Right Arm Pulse Ox 100 Oxygen Delivery Method Room Air Weight Weight: 51.8 kg Body Mass Index (BMI) 20.9 Results Lab / Micro Data 06/23/25 16:39
--- NOTE | 2025-06-27 07:30 | KID_PTH ---
PATIENT: ALLIE MARIE LOC: [facility]3 U#:[id number] AGE/SX: 89/F ROOM: MA315 RE06/28/[address]: Dr. Akhil Leslie MD : [id number] BED: 1 DIS: 06/29/2025 SPEC #: [id number] RECD: 06/27/25 10:50 STATUS: IRA PACKERDimitry #: [id number] ANDREA: 06/27/25 07:[address]: Akhil Leslei DEPT: SURGICAL PATHOLOGY RECD BY: Edmund Schofield ENTERED: 06/27/25 13:17 SP TYPE: KIDNEY OTHR DR: MD Dr. Angel Nuñez MD Tissues: A - Kidney, NOS Procedures: Immunohistochemical Stains Surgery Specimen Level V IHC Stain ADDITIONAL HEADER OPERATION: Laparoscopic robotic nephrectomy, urethrectomy PRE-OP DIAGNOSIS: Right renal pelvic mass urothelial carcinoma TISSUE SUBMITTED: A- Right kidney, right ureter MICROSCOPIC DIAGNOSIS A. Right kidney and ureter, nephroureterectomy: - Non-invasive papillary urothelial carcinoma, high grade - see Synoptic Report. - tip stitcher, pNX - Surgical margins free. SYNOPTIC REPORT FOR RENAL PELVIC CARCINOMA: Procedure (nu=nephroureterectomy):?NU Tumor site:?RENAL PELVIS Laterality (r=right, l=left, ns=not specified):?R Invasive/papillary tumor size (cm) (na=not applicable):?3.5 cm Histologic type:?papillary urothelial carcinoma Grade (Urothelial: l=low, h=high; Adeno/Squamous cell: 1-3): H Lymphovascular invasion (n=no, y=yes):?n ? Tumor extent (N=no, Y=yes, NA=not applicable): ??? Invasion of subepithelial tissue: N ??? Invasion of muscle: N ??? Invasion of peripelvic fat: N ??? Invasion of renal parenchyma: N ??? Invasion of perinephric fat: N ??? Invasion of adjacent organs: N ? Margins (N=negative, P=positive, NA=not applicable): ??? Distal ureter/bladder cuff: N ??? Other margins: N ? Regional lymph nodes (NA=not applicable): NA ??? Number examined: 0 ??? Number positive: NA ??? Size of largest metastatic deposit (cm): NA ? Non-neoplastic kidney:?benign simple cyst (0.9 cm), patchy mild chronic inflammation Additional findings:?p53 is wild type. Ki67q is approximately 25%. pTNM:?tip stitcher NX Comments:?NONE ? Pathologic Staging Definitions (pTNM): Primary Tumor (pT) pTX:? Cannot be assessed pT0:? No evidence of primary tumor tip stitcher:? Noninvasive papillary carcinoma pTis:??? Carcinoma in situ pT1:? Invades subepithelial connective tissue pT2:? Invades muscle pT3:? Invades peripelvic fat or renal parenchyma pT4:? Invades adjacent organs or perinephric fat Regional Lymph Nodes (pN) (hilar, paracaval, aortic, retroperitoneal) pNX:? Cannot be assessed pN0:? No regional lymph node metastasis pN1:? 1 lymph node with tumor deposit </= 2 cm pN2:? 1 lymph node with tumor deposit > 2 cm or metastases in multiple nodes Distant Metastasis (pM) pM1:? Distant metastasis ? The above synoptic report complies, in slightly modified form, with the guidelines of the [employer] [place] [employer] and the Association of Directors of Anatomic and Surgical Pathology for the reporting of cancer specimens MICROSCOPIC DESCRIPTION Slides are reviewed. ?All matched controls reacted appropriately. These tests were developed and their performance characteristics determined by [facility]. They may not have been cleared or approved by the U.S. Food and Drug Administration. The FDA has determined that such clearance or approval is not necessary.? The above immunohistochemical/dualISH?markers are reviewed by the Pathologist. GROSS DESCRIPTION A. Received in formalin labeled with the patient's name and date of . Designated as right kidney and RT ureter is a 275 g radical nephrectomy with attached Gerota's fascia, overall measuring 12.1 x 9.3 x 3.7 cm. The attached ureter measures 14.3 cm in length by 0.8 cm in diameter. Thrombi are not present. An adrenal gland is not present. Ink cassidy:Perinephric fat: BlackHilar margins: BlackGerota's fascia: OrangeProximal ureter: GreenMid ureter: OrangeDistal ureter: BlueUreter margin: Black Sectioning reveals that the kidney itself measures 8.0 x 4.9 x 3.3 cm. There is a 3.5 x 2.2 x 0.7 cm schafer-white to pink, irregular, friable and papillary mass located within the renal pelvis. The mass appears to be contained to the renal pelvis, abuts the perinephric fat, and is located 1.3 cm from the renal vein margin. The remainder of the collecting system is a schafer-white with focal congestion. The remainder of the kidney parenchyma is schafer to light brown with a 0.9 cm cyst containing light brown inspissated material. Lymph nodes are not identified. Tube Closing Machine Operator sections are submitted as follows: A1: Hilar/vascular/ureter marginsA2: Proximal, mid and distal ureterA3: Mass with proximal ureterA4-A5: Mass to sinus fat and renal parenchymaA6: Congested collecting systemA7: Renal parenchyma with cyst and overlying Gerota's fascia MT 06/30/2025 CPT:97766,[id number]
--- NOTE | 2025-06-27 10:26 | OP.PCM_ITS ---
Operative Report (Standard) Operative Information Date of Procedure: 06/27/25 Pre-Operative Diagnosis: Urothelial carcinoma of the right kidney renal pelvis Post-Operative Diagnosis: The same Surgery/Procedure Performed: Cystoscopy transurethral resection of the ureteral orifice in the ureter, laparoscopic robotic assisted right radical nephro ureterectomy complete removal of the ureter armed security officer: Yes Director Of Safety And Security: Mele Taylor Tasks completed by assistant broker: Opening, Closing, Opening & closing, Harvesting grafts, Dissecting tissue, Removing tissue, Implanting device, Altering tissue, Insert Trochanter, Hemostasis: Clamp, Hemostasis: Tie, Hemostasis: Electrocautery, Trocar, Retracting and Other Type of Anesthesia: General RN Documented Start/Stop Times: Operation Date: 06/27/25 07:30 Case Time Into Pre-Op 06/27/25 06:00 Anesthesia Start 06/27/25 07:34 Into Room 06/27/25 07:34 Out of Pre-Op 06/27/25 07:34 Procedure Start 06/27/25 07:52 Procedure End 06/27/25 10:22 Procedure Start Time: 07:52 Procedure Stop Time: 10:27 Select all DRAINS/GRAFTS/IMPLANTS that apply: Drains Drain details: billings 20 fr Estimated Blood Loss: 400 cc Specimen collected: Yes Description of specimen(s) removed: Kidney and ureter complete Description of surgery: This is a 89-year-old female who started having heavy bleeding from a tumor coming from her right kidney she underwent ureteroscopy and biopsy 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 Patient was consented for nephroureterostomy in the right side. She was taken back to the operating room after induction of anesthesia she was placed for supine on the table we then placed in dorsolithotomy position the urethra vaginal area prepped and draped in usual fashion I then went into the bladder with a 24 Micronesian noncontinuous bipolar resectoscope I bent the loop to make a sharp tip I then identified the right ureteral orifice and then insert circumferentially I scarred all the way around the right ureteral orifice in order to to dissect the ureter off the bladder and went deep into the perivesical fat and circumstantially freed up the ureter from the bladder in order to allow removal of the ureter from the bladder later on. Once this was done then the ureter was completely freed from the bladder circumferentially and then I placed a 20 Micronesian catheter in the bladder the patient was then repositioned for a full flank approach to the kidney on the right side axillary roll was placed all pressure points were padded once she was a position in a modified flank position then Veress needle was planed to the peritoneal cavity we insufflated the peritoneal cavity CO2 gas then we put in our ports I put a right arm port camera port left arm port and second left arm port an air seal port for the culture media laboratory assistant. The robot was docked and then once he got inside the abdomen inspected he had a large floppy liver overcoming the kidney she had prior looks like a prior gallbladder was surgery in the past extensive he gins of the colon to the anterior abdominal wall this was all taken down sharply with careful dissection and then reflected the colon off the lateral sidewall and then dissected the way down to the pelvis reflecting the colon until I got down to the pelvic brim then at the pelvic brim dissected try to find the ureter the ureter was identified encounter little venous bleeding around the area of the pelvic brim this was controlled with a clip and cautery I then identified the ureter and got underneath the ureter and then dissected the ureter and cephalad and then inferiorly I dissect the ureter inferiorly all the way down to the bladder as I was gently pulling up the ureter dissecting around and then the ureter came free since it only been freed up from the lower part of the prior part of the surgery the ureter came free and then we put a clip on the ureter to prevent any extract leakage of urine from the ureter. After the ureter was freed from the bladder distally then I brought the ureter up we then docked to the other arm and then I was able to elevate and retract the ureter up in order to get underneath the Gerota's fat and the ureter as I elevated up the kidney then I went inferior to the ureter and came across the gonadal vessel start bleeding little bit put 2 clips on this to control this bleeding and then came up and elevated the kidney up and then encountered the hilum carefully dissected out the artery in the renal vein and then the artery was taken with 2 clips up 1 clip down and transected and then the vein was taken with 2 clips down 1 clip up after transecting the artery and the vein then the coag was turned up and then I dissected the tail of the kidney off the liver and then dissected the kidney fat all the way up to the top part of the kidney and then dissected the kidney off the lateral wall to free of the kidney completely. We then undocked the robot we placed the 15 mm Endo Catch bag through our lower port we put the specimen in the Endo Catch bag close the backup remove the port extended the incision and then opened up the incision to the lateral flank muscles and then next extracted the kidney through the small incision I then inspected there was a small bleeder coming from underneath the rectus muscle this was cauterized and controlled then after this was controlled then I closed the fascia with a running 0 Vicryl we then went back in the abdomen with laparoscope and suction irrigated show and we irrigated extensively checked for bleeding there was no active bleeding and then we closed the 1012 AirSeal port with a Patrick Stahl stitch and then removed all the trocars under direct visualization no bleeding from any of the trocars desufflated all the gas of the abdomen and removed all the trocars all the incisions were then closed with subcuticular stitches patient anesthetic was reversed taken back to the PACU in stable condition with Billings catheter in place. Surgical Findings: The ureter and kidney removed completely Complications Complications: No Admit VTE Documentation VTE Present on Admission: No VTE Mechan Device Prophylaxis: SCD's VTE Pharm Prophylaxis ordered?: No
--- NOTE | 2025-06-27 10:26 | DCINST_ITS ---
Discharge Instructions DC O2, CPAP, BIPAP needs Home O2 Discharge instructions: No Dressing / Incision Discharge Activity: Return to Normal Activity and May Not Drive (while taking narcotic pain medications.) Dressing / Incision Call your doctor if your incision/area has: Continuous Slow Oozing and Sudden Increased Bleeding Call your doctor if you observe: Fever of 101 or Higher, Inability to have a b owel movement and Uncontrolled pain Cleanse incision/area with: Soap & Water Catheter: Macias to leg bag Drain: [place] Follow Up Care Please Follow Up With: Akhil Leslie MD When: Call [phone] for an appointment 10 days Test Results: Test results from this visit will be discussed in further detail at your follow- up appointment, if applicable. Discharge Plan Admission Admit Date/Time: 06/27/25 05:45 Primary Reason for Your Visit: Robotic right radical nephro ureterectomy Attending Provider: Akhil Leslie Primary Care Provider: Angel Juan Consulting Providers: Viet Srinivasan Discharge Orders/Prescriptions Prescriptions: New docusate sodium [Colace] 100 mg capsule 100 mg PO BID Qty: 20 0RF ciprofloxacin HCl 250 mg tablet 250 mg PO DAILY Qty: 10 0RF oxycodone 5 mg tablet 5 mg PO Q6H PRN (Reason: pain) 7 Days Qty: 10 0RF Continued albuterol sulfate 90 mcg/actuation aerosol powdr breath activated 2 inh inhalation Q6H PRN (Reason: shortness of breath or wheezing) metoprolol succinate 100 mg tablet extended release 24 hr 100 mg PO DAILY levothyroxine 25 mcg tablet 50 mcg PO DAILY rosuvastatin 40 mg tablet 40 mg PO DAILY losartan 50 mg tablet 50 mg PO DAILY Qty: 90 3RF Held clopidogrel 75 MG tablet 75 mg PO DAILY Hold Instructions: Resume on 07/11/25. aspirin 81 MG tablet,chewable 81 mg PO DAILY@0800 Hold Instructions: Resume on 07/11/25. Discontinued ibuprofen 400 mg tablet 400 mg PO Q6H PRN (Reason: pain) Qty: 14 0RF Referrals / Follow Up: Angel Juan MD [Primary Care Provider] - Akhil Leslie MD [Med Staff - Active Staff] - Disposition Disposition (needs filled in before D/C Order can be placed): Home, Self Care
--- NOTE | 2025-06-27 10:38 | PCM.POST.ANE ---
Anesthesia: Postop Eval I Current Vital Signs Temperature: 97 F Pulse Rate: 64 Blood Pressure: 171/87 Respiratory Rate: 16 Pulse Ox: 100 Oxygen Delivery Method: Simple Mask Oxygen Flow Rate (L/min): 6 Assessment Airway patent: Yes Spontaneous unlabored respirations: Yes Mental status: Awake and Calm nausea: No Vomiting: No Anesthesia Complication: No Fluid Hydration Crystalloid volume administer (ml): 1,500 Total IV fluid infused: 1,500 Progress Note Anesthesia document: Postop Eval 1 completed: Yes
[2025-06-27] MEDS: 0.9% Normal Saline (1000mL) 1,000 ML 100 ML IV ×2 (12:25→22:08)
[2025-06-27] MEDS: Cefazolin 1 GM/50 ML BAG IV (16:54)
[2025-06-28] VITALS (18 sets, daily range): BP systolic 105–199; BP diastolic 46–100; PULSE 62–80; RESP 16–20; TEMP 36.3–36.9; O2SAT 93–98
[2025-06-28] MEDS: Cefazolin 1 GM/50 ML BAG IV (00:57)
[2025-06-28] MEDS: 0.9% Normal Saline (1000mL) 1,000 ML 100 ML IV ×2 (06:43→16:50)
[2025-06-28 06:50] LABS: Anion Gap 12 (5-15); BUN 27 mg/dL (4-19); BUN/Creat Ratio 11.4 RATIO (10-20); Calcium,Total 7.6 mg/dL (7.6-11.0); Carbon Dioxide 15.3 mmol/L (21.0-32.0); Chloride 110 mmol/L (98-108); Estimated Creatinine Clearance 13.17 ml/min (50-250); Glucose 132 mg/dL (70-99); Potassium 4.6 mmol/L (3.3-5.1)
[2025-06-28 07:07] LABS: Hematocrit 19.3 % (37-47); Hemoglobin 6.4 g/dL (12.0-15.0); Immature Granulocytes Count 0.110 X10^3/uL (0.0-0.0); Mean Corp Hgb Conc 33.2 g/dL (32-36); Mean Corpuscular Volume 94.6 fL (81-99); Mean Platelet Vol. 10.3 fl (6.2-12.0); NRBC Flagged by Analyzer 0 % (0-5); Platelet Count 177 K/mm3 (150-450); RBC Distribution Width CV 12.8 % (11.6-14.6); RBC Distribution Width SD 44.2 fl (35.1-43.9); Red Blood Count 2.04 M/mm3 (4.2-5.4); White Blood Count 15.9 K/mm3 (4.4-11.0)
[2025-06-28] MEDS: 0.9% Normal Saline (500mL Bag) 500 ML 999 ML IV (07:19)
[2025-06-28] MEDS: Metoprolol(XL)Succ 100 MG Tablet PO (08:15)
--- NOTE | 2025-06-28 09:33 | PN.URO_ITS ---
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 actually tolerating her hemoglobin quite well but we will give her 2 units of blood keep the Macias in place should go home with the Macias advance to regular diet patient looks well Objective Data Objective Data Vital Signs: Vital Signs Temp Pulse Resp BP Pulse Ox O2 Del Method O2 Flow Rate 98.1 F 69 18 142/49 H 94 Room Air 6 06/28/25 08:08 06/28/25 08:15 06/28/25 08:08 06/28/25 08:08 06/28/25 08:08 06/28/25 08:08 06/27/25 10:39 Oxygen Flow Rate (L/min) 6 Oxygen Delivery Method Room Air Weight: 57.508 kg Body Mass Index (BMI) 23.1 Intake & Output: Intake and Output for Last 24 Hours 06/26/25 06/27/25 06/28/25 23:59 23:59 23:59 Intake Total 2721.67 / 2921.67 1808.33 / 1808.33 Output Total 520 / 670 200 / 200 Balance 2201.67 / 2251.67 1608.33 / 1608.33 Lab / Micro Data 06/28/25 05:25 06/28/25 05:25 Labs: Laboratory Results - last 24 hr 06/28/25 05:25: WBC 15.9 H, RBC 2.04 L, Hgb 6.4 L, Hct 19.3 L, MCV 94.6, MCH 31.4, MCHC 33.2, RDW Std Deviation 44.2 H, RDW Coeff of Krystyna 12.8, Plt Count 177, MPV 10.3, Immature Gran % (Auto) 0.700, Neut % (Auto) 86.4 H, Lymph % (Auto) 4.9 L, [place] % (Auto) 7.9, Eos % (Auto) 0.0, Baso % (Auto) 0.1, Absolute Neuts (auto) 13.8 H, Absolute Lymphs (auto) 0.78 L, Nucleated RBC % 0, Sodium 137, Potassium 4.6, Chloride 110 H, Carbon Dioxide 15.3 L, Anion Gap 12, BUN 27 H, Creatinine 2.38 H, Estim Creat Clear Calc 13.17 L, Est GFR (MDRD) Non-Af 19 L, BUN/Creatinine Ratio 11.4, Glucose 132 H, Calcium 7.6
--- NOTE | 2025-06-28 09:46 | CASEMGMT ---
Addendum entered by Pauline Pardo 06/28/25 12:43: Pt/family declined wanting list of other C options. Addendum entered by Pauline Pardo 06/28/25 12:43: LING SO to room. Pt has returned to bed. DaughterApolonia, @ bedside. Apolonia states they would like [facility] HHC @ discharge and pt is agreeable. They were made aware HHC can not be set up on the weekend, but a VM will be left on the referral line and someone will f/u re: this on Mon. They voice understanding. Call placed to [facility] and VM left re: referral for [facility] for SN and PT. E-mail sent to discharge engineer third assistant, Shannen, re: referral and that w/u will be needed on Monday. Addendum entered by Pauline Pardo 06/28/25 10:55: Larissa states, they can make arrangements for someone to stay overnight with pt when she returns, if needed. Addendum entered by Pauline Pardo 06/28/25 10:50: Per Dr Leslie, pt to discharge home w/ F/C. Family aware and are willing to learn how to care for this. LING [place], aware pt will need F/C care education. Original Note: RN CM senior revenue accountant CM to room to meet with patient for initial transition planning/care coordination assessment. RN JUDAH introduced self and role at [facility], pt voices understanding. Pt is A&O, sitting up in chair in room. Forgetful. Pt unable to answer some of the following questions and gave permission for this RN JUDAH to call one of her daughters. Call placed to daughterLarissa, and the following information obtained from her and pt. Care providers, pharmacy, and demographics verified. PCP: Dr Juan Specialists: Dr Leslie-urology. Hx of seeing Dr Martinez/cardiology, but has not seen him for a couple of years. Preferred Pharmacy: [facility] [place] Insurance: MCR A/B, AARP Prescription Benefit: yes LNOK: Apolonia Hammer (Maricel), Larissa Sunshine (Maricel) Living Arrangements: Pt lives alone in a one- story home with basement and 2 steps to enter. Pt does not have to go to the basement. Pt has private duty aid 3 days/week during the day and daughters take turns being w/pt the other days. Pt is home alone @ HS and is able to get OOB and ambulate to bathroom independently w/use of rollator during the night. Transportation: Pt does not drive. Both of pt's daughter drive her DME: Medical alert system, Rollator, Cane, Shower chair, Grab bars, toilet riser. HHC/SNF: Pt recently had [facility] HHC. No hx of SNF. PT/OT derek pending. Larissa made aware. She states, depending on how well pt does w/therapy, will determine if they would like HHC again @ discharge. Pt and family wish for pt to return home and states has no further concerns with going home at time of discharge. ? PLAN:??Home w/possible HHC. PT/OT derek pending. ? Harini BSN?RN?CM
[2025-06-29] VITALS (7 sets, daily range): BP systolic 165–175; BP diastolic 67–83; PULSE 67–72; RESP 16–19; TEMP 36.7–36.9; O2SAT 91–97
[2025-06-29] MEDS: 0.9% Normal Saline (1000mL) 1,000 ML 100 ML IV (03:52)
[2025-06-29 04:56] LABS: Hematocrit 28.5 % (37-47); Hemoglobin 9.7 g/dL (12.0-15.0); Immature Granulocytes Count 0.090 X10^3/uL (0.0-0.0); Mean Corp Hgb Conc 34.0 g/dL (32-36); Mean Corpuscular Volume 88.2 fL (81-99); Mean Platelet Vol. 10.2 fl (6.2-12.0); NRBC Flagged by Analyzer 0 % (0-5); Platelet Count 130 K/mm3 (150-450); RBC Distribution Width CV 15.4 % (11.6-14.6); RBC Distribution Width SD 49.4 fl (35.1-43.9); Red Blood Count 3.23 M/mm3 (4.2-5.4); White Blood Count 11.5 K/mm3 (4.4-11.0)
[2025-06-29 05:11] LABS: Anion Gap 10 (5-15); BUN 31 mg/dL (4-19); BUN/Creat Ratio 12.9 RATIO (10-20); Calcium,Total 7.1 mg/dL (7.6-11.0); Carbon Dioxide 14.6 mmol/L (21.0-32.0); Chloride 111 mmol/L (98-108); Estimated Creatinine Clearance 13.01 ml/min (50-250); Glucose 118 mg/dL (70-99); Potassium 4.1 mmol/L (3.3-5.1)
--- NOTE | 2025-06-29 09:01 | DS.PCM_ITS ---
Providers Date of Admission: 06/27/25 Date of Discharge: 06/29/25 Primary Care Physician: Dr. Angel Juan MD Reason For Visit: ROBOTIC Nephrectomy, Ureterectomy/EORDER LAB Medications at Discharge Home Medications aspirin 81 mg chewable tablet 81 mg PO DAILY@0800 health maintenance 07/13/17 Held on 06/27/25. Instructions: Resume on 07/11/25. clopidogrel 75 mg tablet 75 mg PO DAILY blood thinner 07/13/17 Held on 06/27/25. Instructions: Resume on 07/11/25. losartan 50 mg tablet 50 mg PO DAILY blood pressure #90 tabs 10/27/21 levothyroxine 25 mcg tablet 50 mcg PO DAILY thyroid 04/13/25 metoprolol succinate 100 mg tablet,extended release 24 hr 100 mg PO DAILY blood pressure 04/13/25 rosuvastatin 40 mg tablet 40 mg PO DAILY cholesterol 04/13/25 albuterol sulfate 90 mcg/actuation breath activated powder inhaler 2 inh inhalation Q6H PRN shortness of breath or wheezing 06/18/25 ciprofloxacin HCl 250 mg tablet 250 mg PO DAILY #10 tabs 06/27/25 docusate sodium 100 mg capsule (Colace) 100 mg PO BID #20 caps 06/27/25 oxycodone 5 mg tablet 5 mg PO Q6H PRN pain 7 days #10 tabs 06/27/25 Hospital Course Operations - (Laparoscopic right nephro ureterectomy) Summary of Care Provided Minutes Spent on Discharge: 10 Weight / BMI Weight Weight: 57.508 kg Body Mass Index (BMI) 23.1 ABG / Lab / Microbiology Data 06/29/25 04:00 06/29/25 04:00 Laboratory: Laboratory Results - last 24 hr 06/28/25 10:20: Blood Type O POSITIVE, Antibody Screen NEGATIVE, Crossmatch See Detail 06/29/25 04:00: WBC 11.5 H, RBC 3.23 L, Hgb 9.7 L, Hct 28.5 L, MCV 88.2 D, MCH 30.0, MCHC 34.0, RDW Std Deviation 49.4 H, RDW Coeff of Krystyna 15.4 H, Plt Count 130 L, MPV 10.2, Immature Gran % (Auto) 0.800, Neut % (Auto) 73.6 H, Lymph % (Auto) 15.1 L, [place] % (Auto) 9.1, Eos % (Auto) 1.0, Baso % (Auto) 0.4, Absolute Neuts (auto) 8.5 H, Absolute Lymphs (auto) 1.74, Nucleated RBC % 0, Sodium 136, Potassium 4.1, Chloride 111 H, Carbon Dioxide 14.6 L, Anion Gap 10, BUN 31 H, C reatinine 2.41 H, Estim Creat Clear Calc 13.01 L, Est GFR (MDRD) Non-Af 19 L, BUN/Creatinine Ratio 12.9, Glucose 118 H, Calcium 7.1 L D/C Instructions Call your doctor if your incision/area has: Continuous Slow Oozing and Sudden Increased Bleeding Call your doctor if you observe: Fever of 101 or Higher, Inability to have a bowel movement and Uncontrolled pain Cleanse incision/area with: Soap & Water Catheter: Macias to leg bag Drain: [place] DC O2, CPAP, BIPAP Needs Home O2 Discharge instructions: No Please Follow Up With: Akhil Leslie MD When: Call [phone] for an appointment 10 days Meaningful Use Info Meaningful Use Meaningful Use Diagnoses (Choose all that apply): None applicable Discharge Plan Admission Admit Date/Time: 06/28/25 09:43 Primary Reason for Your Visit: Robotic right radical nephro ureterectomy Attending Provider: Akhil Leslie Primary Care Provider: Angel Juan Consulting Providers: Viet Srinivasan Discharge Orders/Prescriptions Prescriptions: New docusate sodium [Colace] 100 mg capsule 100 mg PO BID Qty: 20 0RF ciprofloxacin HCl 250 mg tablet 250 mg PO DAILY Qty: 10 0RF oxycodone 5 mg tablet 5 mg PO Q6H PRN (Reason: pain) 7 Days Qty: 10 0RF Continued albuterol sulfate 90 mcg/actuation aerosol powdr breath activated 2 inh inhalation Q6H PRN (Reason: shortness of breath or wheezing) metoprolol succinate 100 mg tablet extended release 24 hr 100 mg PO DAILY levothyroxine 25 mcg tablet 50 mcg PO DAILY rosuvastatin 40 mg tablet 40 mg PO DAILY losartan 50 mg tablet 50 mg PO DAILY Qty: 90 3RF Held clopidogrel 75 MG tablet 75 mg PO DAILY Hold Instructions: Resume on 07/11/25. aspirin 81 MG tablet,chewable 81 mg PO DAILY@0800 Hold Instructions: Resume on 07/11/25. Discontinued ibuprofen 400 mg tablet 400 mg PO Q6H PRN (Reason: pain) Qty: 14 0RF Referrals / Follow Up: Angel Juan MD [Primary Care Provider] - Akhil Leslie MD [Med Staff - Active Staff] -
[2025-06-29] MEDS: Metoprolol(XL)Succ 100 MG Tablet PO (09:36)
--- NOTE | 2025-06-29 13:25 | NURSING ---
BP elevated but pt asymptomatic. Family says it is high when at the doctors, she has white coat. Daughter states she will recheck her BP at home this evening. This RN educated on what to do if still high. Education written and verbal given regarding billings cath care at home. pt and daughters understand.
--- NOTE | 2025-06-30 10:34 | CASEMGMT ---
Discharge Planning [facility] has accepted. They will update pt. Shannen Schultz DC Planning Asst.
== END 2025-06-29 13:29 | disposition home or self-care (01) | DRG 658 ==
LOC: MS3 16:21
PROVIDERS: Anesthesiology; Admitting Provider Urology; PCP Family Medicine; Referring Provider Urology; Visit Provider Urology
PROC: 0TT68ZZ Resection of Right Ureter, Via Natural or Artificial Opening Endoscopic (ICD-10-PCS; CPT 50546; principal; 2025-06-27 07:10)
PROC: 0TBB8ZZ Excision of Bladder, Via Natural or Artificial Opening Endoscopic (ICD-10-PCS; 2025-06-27 07:10)
DX: C65.1 Malignant neoplasm of right renal pelvis (principal); E78.00 Pure hypercholesterolemia, unspecified; I10 Essential (primary) hypertension; J45.909 Unspecified asthma, uncomplicated; Z87.891 Personal history of nicotine dependence; Z86.718 Personal history of other venous thrombosis and embolism; Z79.51 Long term (current) use of inhaled steroids; Z79.899 Other long term (current) drug therapy; Z86.73 Personal history of transient ischemic attack (TIA), and cerebral infarction without residual deficits
CPT/HCPCS: 36415; 80048; 85025; 85027; 86644; 86850; 86900; 86901; 88307; 88341; 88342; 94668; 97165; 97530; 97535; P9016; J2405

== ENCOUNTER → 2025-07-02 | Outpatient (CLI) | payer MEDICARE, OTHER, SELFPAY ==
[2025-07-02 10:34] LABS: Color, Urine Yellow (Yellow); Glucose, Dipstick Normal (Normal); Ketone-Dipstick Negative (Negative); Leukocyte Esterase-Dipstick 25 /ul (Negative); Nitrite-Dipstick Negative (Negative); Occult Blood-Urine 250 /ul (Negative); Protein-Dipstick 30 mg/dl (Negative); Specific Gravity, Urine 1.010 (1.002-1.030); Urine Bilirubin Dipstick Negative (Negative)
== END | disposition home or self-care (01) ==
LOC: LABSPEC 08:04
PROVIDERS: PCP Family Medicine; Visit Provider Urology
DX: C64.1 Malignant neoplasm of right kidney, except renal pelvis (principal)
CPT/HCPCS: 81002

== ENCOUNTER 2025-10-17 16:17 | Emergency (ER) | payer MEDICARE, OTHER, SELFPAY ==
[2025-10-17 16:18] VITALS: BP 155/73; PULSE 73; RESP 16; TEMP 36.5; O2SAT 99; BMI 19.2
--- OUTSIDE RECORDS SUMMARY | 2025-10-17 18:28 | XMS RPT_ITS | CCD ---
Author Organization [facility] CliniSyvt Care Team Providers Care Wireline Operator Name Role Phone Cedrick DUBON, Ramona Mcleod Unavailable Martha Mcrae Unavailable Dallas Edmond Y Unavailable Unavailable Martha Mcrae Y Unavailable Adore DAILY, Dr. May Snyder Primary Care Provider [phone] Dr. Ant Vale DO Emergency Provider Vaishali DAILY, Dr. Lilia Mcleod Admit Provider Vaishali DAILY, Dr. Lilia Mcleod Attending Provider Vaishali DAILY, Dr. Lilia Mcleod Other Provider Dr. Ken Parker DO Attending Provider Juan DAILY, Dr. Palacios Attending Provider Dr. Ken Parker DO Other Provider McMorrow BEE RANCHER-C, Boubacar Attending Provider McMorrow BEE RANCHER-C, Boubacar Referring Provider Anuj DAILY, Dr. Akhil Griffin Attending Provider [phone] Anuj DAILY, Dr. Akhil Griffin Referring Provider Dr. Angel Juan MD Primary Care Provider Anuj DAILY, Dr. Akhil Griffin Admit Provider Craig DAILY, Dr. lLanos Other Provider Angel Juan Primary Care Unavailable Akhil Leslie Attending Unavailable McMorrow BEE RANCHER, Boubacar Attending Unavailable McMorrow BEE RANCHER, Boubacar Referring Unavailable Jolliff, May S Primary Care Unavailable Akhil Leslie Attending Unavailable AnujAkhil Referring Unavailable Adore, May S Primary Care Unavailable Akhil Leslie Attending Unavailable AnujAkhil Referring Unavailable Angel Juan Primary Care Unavailable Philip Martinez Attending Unavailable Jolliff, May S Primary Care Unavailable Jolliff, May S Primary Care Unavailable White, Lilia L Admitting Unavailable White, Lilia L Consulting Unavailable White, Lilia L Attending Unavailable Tereletsky, Ken Attending Unavailable Tereletsky, Ken Consulting Unavailable Jolliff, May S Primary Care Unavailable Tereletsky, Ken Attending Unavailable White, Lilia L Admitting Unavailable White, Lilia L Consulting Unavailable Anuj, Akhil Griffin Attending Unavailable Akhil Leslie Referring Unavailable Anuj, Akhil Griffin Admitting Unavailable Angel Juan Primary Care Unavailable Viet Srinivasan Consulting Unavailable Adore DAILY, Dr. May Snyder Primary Care Physician [facility] BEE RANCHER-C, Boubacar Attending Physician [phone] Anuj DAILY, Dr. Akhil Griffin Attending Physician Dr. Angel Juan MD Primary Care Physicia n Anuj DAILY, Dr. Akhil Griffin Admitting Physician Craig DAILY, Dr. Llanos Nurse Practitioner Allergies Allergy Classification Reported Allergen(s) Allergy Type Date of Onset Reaction(s) Facility (4 sources) Hmg-Coa Reductase Inhibitors (Statins) drug allergy 6 myalgias [facility] Work Phone: (4 sources) penicillin drug allergy 6 rash [facility] Work Phone: (4 sources) wasp venom; Translations: [WASP VENOM] allergy to substance 6 ANAPHYLAXIS [facility] Work Phone: (4 sources) YELLOW JACKETS drug allergy 6 ANAPHYLAXIS [facility] Work Phone: (4 sources) HORNETS drug allergy 6 ANAPHYLAXIS [facility] Work Phone: (12 sources) Hornet venom; Translations: [hornet venom] Allergy to substance 2 Anaphylaxis [facility] (11 sources) Penicillins Allergy to substance 2 Rash [facility] (11 sources) traMADol Drug Allergy 2 Other [facility] (12 sources) insect venom; Translations: [insect venom] Allergy to substance 2 Anaphylaxis [facility] (11 sources) venom-wasp Allergy to substance 2 Anaphylaxis [facility] (11 sources) Gnzowco-Cry-Gny Reductase Inhibitor Propensity to adverse reactions 2 muscle weakness [facility] Comment on above: Lipitor (1 source) Penicillins Drug allergy (disorder) 5 [facility] Repository (1 source) traMADol Drug Allergy 5 [facility] Repository (1 source) Obsrdpw-Lda-Ync Reductase Inhibitor Drug allergy (disorder) 5 [facility] Repository (1 source) venom-wasp Drug allergy (disorder) 5 [facility] Repository Medications Current Medications Medication Drug Class(es) Dates Sig (Normalized) Sig (Original) 200 actuat albuterol 0.09 mg/actuat dry powder inhaler (20 sources) beta2-Adrenergic Agonist Start: 06-18-2025 Start: 12-08-2017 End: 02-10-2022 Albuterol Sulfate (Ventolin [...] hours as needed - 90mcg/inh ALBUTEROL SULFATE [id number] Shannen Daly RN Start: 08-05-2016 take 1-2 puff(s) by inhalation every four hours as needed VENTOLIN HFA 108 (90 Base) MCG/ACT AERS 1-2 puffs q 4 hours as needed - 90mcg/inh ALBUTEROL SULFATE [id number] Shannen Daly RN Start: 02-11-2014 End: 01-27-2017 [...] 11, 2014 12:00am January 27, 2017 1:30pm aspirin 81 mg chewable tablet (20 sources) Nonsteroidal Anti-inflammatory Drug Start: 04-28-2017 take 1 tablet by mouth once daily ASPIRIN EC 81 MG TBEC One tablet by mouth daily ASPIRIN [id number] Ramona Philip RN Start: 01-24-2017 End: 07-13-2017 take 1 tablet by mouth once daily Start: 08-05-2016 End: 08-10-2016 take 1 tablet by mouth once daily ASPIRIN LOW DOSE 81 MG TBEC One tablet by mouth daily ASPIRIN [id number] Philip Martinez MD Start: 08-05-2016 End: 08-10-2016 take 1 tablet by mouth once daily ASPIRIN LOW DOSE 81 MG TBEC One tablet by mouth daily ASPIRIN [id number] Shannen Daly RN Start: 02-11-2014 End: 02-26-2014 take 1 tablet by mouth once daily Aspirin 81 MG Tab.Chew Discontinued 81 mg PO DAILY@0800 February 11, 2014 12:00am February 26, 2014 9:04am ciprofloxacin 250 mg oral tablet (8 sources) Quinolone Antimicrobial Start: 06-27-2025 take 1 tablet by mouth once daily Start: 06-13-2025 End: 06-27-2025 take 1 tablet by mouth twice daily Ciprofloxacin Hcl 500 mg tablet Discontinued 500 mg PO TWICE A DAY 10 0 June 13, 2025 12:00am June 27, 2025 6:22am docusate sodium 100 mg oral capsule (3 sources) Start: 06-27-2025 take 1 capsule by mo [facility] twice daily levothyroxine sodium 0.025 m g oral tablet (20 sources) l-Thyroxine Start: 04-13-2025 take 2 tablets by mo [facility] once daily Start: 04-13-2025 take 1 tablet by [facility] once daily Levothyroxine 25 mcg tablet Active [...] take 1 tablet by mouth once daily Start: 02-10-2023 End: 04-13-2025 Metoprolol Succinate 50 [...] th once daily TOPROL XL 100 MG [id number] One tablet by mouth daily METOPROLOL SUCCINATE [id number] Ramona Philip RN Start: 08-10-2016 take 1 tablet by luz th once daily TOPROL XL 100 MG [id number] One tablet by mouth daily METOPROLOL SUCCINATE [id number] Ramona Philip RN Start: 08-10-2016 take 1 tablet by luz th once daily TOPROL XL 50 MG [id number] One tablet by mouth daily METOPROLOL SUCCINATE [id number] Philip Martinez MD oxyCODONE hydrochloride 5 mg oral tablet (3 sources) Opioid Agonist Start: 06-27-2025 take 1 tablet by mouth every six hours as needed for pain rosuvastatin calcium 40 mg oral tablet (20 sources) HMG-CoA Reductase Inhibitor Start: 04-13-2025 take 1 tablet by mouth once daily Start: 02-10-2022 End: 04-13-2025 take 1 tablet by mouth once daily Rosuvastatin 20 mg tablet Discontinued 20 mg PO DAILY February 10, 2022 12:00am April 13, 2025 3:30pm Completed/Discontinued Medications Medication Drug Class(es) Dates Sig (Normalized) Sig (Original) amLODIPine 5 mg oral tablet (20 sources) Dihydropyridine Calcium Channel Beni Start: 01-24-2017 End: 03-24-2017 take 1 tablet by mouth once daily Amlodipine 5 MG tablet Discontinued 5 mg PO DAILY 30 0 January 27, 2017 1:34pm March 24, 2017 10:19am atorvastatin 80 mg oral tablet (11 sources) HMG-CoA Reductase Inhibitor Start: 01-24-2017 End: 01-27-2017 take 1 tablet by mouth at bedtime Atorvastatin 80 MG tablet Discontinued 80 mg PO AT BEDTIME 0 January 24, 2017 1:00am January 27, 2017 1:33pm cefdinir 300 mg oral capsule (8 sources) Cephalosporin Antibacterial Start: 04-14-2025 End: 06-12-2025 take 1 capsule by mouth twice daily Cefdinir 300 mg capsule Discontinued 300 mg PO TWICE A DAY 14 April 14, 2025 12:00am June 12, 2025 4:19pm Start on 04/15/2025 cholecalciferol 5000 unt oral capsule (2 sources) Vitamin D Start: 08-05-2016 take 1 tablet by mouth once daily D 5000 5000 UNIT CAPS One tablet by mouth daily CHOLECALCIFEROL [id number] Philip Martinez MD clopidogrel 75 mg oral tablet (20 sources) P2Y12 Platelet Inhibitor Start: 08-10-2016 End: 07-13-2017 take 1 tablet by mouth once daily Clopidogrel 75 MG tablet Discontinued 75 mg PO DAILY 30 0 January 27, 2017 1:34pm July 13, 2017 5:09pm Diazide (11 sources) Start: 02-11-2014 End: 06-23-2016 Diazide Discontinued [...] 11:02am doxycycline monohydrate 100 mg oral capsule (11 sources) Tetracycline-class Drug Start: 01-21-2017 End: 01-24-2017 take 1 capsule by mouth twice daily Doxycycline Monohydrate 100 MG capsule Discontinued 100 mg PO TWICE A DAY January 21, 2017 1:00am January 24, 2017 8:57am [id number] 0.3 ml EPINEPHrine 1 mg/ml auto-injector (4 sources) alpha-Adrenergic Agonist, beta-Adrenergic Agonist, Catecholamine Start: 08-05-2016 EPIPEN 2-LORETTA 0.3 MG/0.3ML SOAJ as needed EPINEPHRINE [id number] Shannen Daly RN Start: 08-05-2016 EPIPEN 2-LORETTA 0 .3 MG/0.3ML SOAJ as needed EPINEPHRINE [id number] Shannen Daly RN FLUoxetine 20 mg oral capsule (15 sources) Serotonin Reuptake Inhibitor Start: 08-05-2016 take 1 tablet by mouth once daily PROZAC 20 MG CAPS One tablet by mouth daily FLUOXETINE HCL [id number] Shannen Daly RN Start: 02-11-2014 End: 02-10-2022 take 1 capsule by mouth at bedtime Fluoxetine 20 MG capsule Discontinued 20 mg PO AT BEDTIME February 11, 2014 12:00am February 10, 2022 1:06pm depression 28 actuat fluticasone propionate 0.25 mg/actuat dry powder inhaler (13 sources) Corticosteroid Start: 06-24-2017 End: 02-10-2022 Fluticasone [...] 1 puff twice daily FLUTICASONE PROPIONATE (INHAL) [id number] Philip Martinez MD gabapentin 300 mg oral capsule (11 sources) Anti-epileptic Agent Start: 01-21-2017 End: 01-27-2017 [...] One tablet by mouth daily LISINOPRIL-HYDRO CHLOROTHIAZIDE [id number] Philip Martinez MD hydroCHLOROthiazide 25 mg / triamterene 37.5 mg oral capsule (11 sources) Potassium-sparing Diuretic, Thiazide Diuretic Start: 08-21-2017 End: 12-08-2017 Triamterene-Hydr ochlorothiazid 1 CAP capsule Discontinued 1 NMA PO DAILY August 21, 2017 12:00am December 08, 2017 11:20am Start: 08-21-2017 End: 12-08-2017 take 1 capsule by mouth once daily Triamterene-Hydrochlorothiazid Discontin ued 1 CAP PO DAILY August 21, 2017 12:00am December 08, 2017 11:20am ibuprofen 400 mg oral tablet (5 sources) Nonsteroidal Anti-inflammatory Drug Start: 06-13-2025 End: 06-27-2025 take 1 tablet by mouth every six hours as needed for pain Ibuprofen 400 mg tablet Discontinued 400 mg PO EVERY 6 HOURS as needed for pain 14 0 June 13, 2025 12:00am June 27, 2025 10:18am levoFLOXacin 250 mg oral tablet (11 sources) Quinolone Antimicrobial Start: 08-23-2017 End: 12-08-2017 take 1 tablet by mouth once daily Levofloxacin 250 MG tablet Discontinued 250 mg PO DAILY@0600 5 0 August 23, 2017 12:00am December 08, 2017 11:18am loratadine 10 mg oral capsule (15 sources) Start: 08-05-2016 take 1 tablet by mouth once daily CLARITIN 10 MG CAPS One tablet by mouth daily LORATADINE [id number] Shannen Daly RN Start: 02-11-2014 End: 02-10-2022 take 1 tablet by mouth once daily Loratadine 10 MG tablet Discontinued 10 mg PO DAILY February 11, 2014 12:00am February 10, 2022 1:06channing tineo losartan potassium 50 mg oral tablet (20 sources) Angiotensin 2 Receptor Beni Start: 02-05-2019 End: 02-05-2019 take 1 tablet by mouth once daily Losartan 100 mg tablet Discontinued 100 mg PO DAILY February 05, 2019 12:00am February 05, 2019 1:33pm Start: 08-07-2018 End: 10-27-2021 take 1 tablet by mouth once daily Losartan 50 mg tablet Discontinued 50 mg PO DAILY 90 3 September 30, 2020 7:08pm October 27, 2021 [...] One tablet by mouth daily LOSARTAN POTASSIUM [id number] Ramona Philip RN meclizine hydrochloride 12.5 mg oral tablet (15 sources) Antiemetic Start: 12-08-2017 End: 02-05-2019 Meclizine 12.5 mg tablet Discontinued 12.5 mg PO NEEDED as needed for Dizziness December 08, 2017 1:00am February 05, 2019 1:31pm Start: 08-05-2016 take 1 tablet by luz th four times daily as needed MECLIZINE HCL 12.5 MG TABS One tablet by mouth four times daily as needed MECLIZINE HCL [id number] Shannen Daly RN 120 actuat mometasone furoate 0.22 mg/actuat dry powder inhaler (4 sources) Corticosteroid Start: 08-05-2016 take 2 puff(s) by inhalation at bedtime ASMANEX 120 METERED DOSES 220 MCG/INH AEPB inhale 2 puffs at bedtime MOMETASONE FUROATE [id number] Shannen Daly RN Start: 08-05-2016 take 2 puff(s) by in halation at bedtime ASMANEX 120 METERED DOSES 220 MCG/INH AEPB inhale 2 puffs at bedtime MOMETASONE FUROATE [id number] Shannen Daly RN MULTIPLE VITAMIN (4 sources) Start: 04-28-2017 take 1 tablet by luz th every twenty-four hours MULTIVITAMINS TABS One tablet by mouth daily MULTIPLE VITAMIN Ramona Philip RN MULTIPLE VITAMINS-MINERALS (2 sources) Start: 08-05-2016 take 1 tablet by luz th once daily MULTIVITAMIN ADULT TABS One tablet by mouth daily MULTIPLE VITAMINS-MINERALS [id number] Shannen Daly RN Start: 08-05-2016 End: 08-10-2016 take 1 tablet by mouth once daily MULTIVITAMIN ADULT TABS One tablet by mouth daily MULTIPLE VITAMINS-MINERALS [id number] Philip Martinez MD MULTIPLE VITAMINS-MINERALS (6 sources) Start: 08-05-2016 take 1 tablet by mouth once daily MULTIVITAMIN ADULT TABS One tablet by mouth daily MULTIPLE VITAMINS-MINERALS [id number] Shannen Daly RN Start: 08-05-2016 End: 08-10-2016 take 1 tablet by mouth once daily MULTIVITAMIN ADULT TABS One tablet by mouth daily MULTIPLE VITAMINS-MINERALS [id number] Philip Martinez MD Multivitamin preparation (2 sources) Start: 12-08-2017 End: 12-15-2017 take 1 tablet by mouth once daily Multivitamin Discontinued 1 TABLET PO daily December 08, 2017 1:00am December 15, 2017 10:24am Start: 12-08-2017 End: 12-15-2017 take 1 tablet by mouth once daily Multivitamin Discontinued 1 TABLET PO daily December 08, 2017 12:00am December 15, 2017 9:24am Multivitamin tablet (9 sources) Start: 12-08-2017 End: 12-15-2017 Multivitamin tablet Discontinued 1 {tbl} PO daily December 08, 2017 1:00am December 15, 2017 10:24am omeprazole 20 mg delayed release oral capsule (6 sources) Proton Pump Inhibitor Start: 08-05-2016 End: 05-02-2017 take 1 tablet by mouth once daily OMEPRAZOLE 20 MG CPDR One tablet by mouth daily OMEPRAZOLE [id number] Philip Martinez MD pantoprazole 40 mg delayed release oral tablet (20 sources) Proton Pump Inhibitor Start: 12-08-2017 End: 02-10-2022 Pantoprazole 40 mg tablet,delayed release (DR/EC) Discontinued 40 mg PO NEEDED as needed for reflux December 08, 2017 1:00am February 10, 2022 1:06pm Start: 04-28-2017 take 1 tablet by luz th once daily PANTOPRAZOLE SODIUM 20 MG TBEC One tablet by mouth daily PANTOPRAZOLE SODIUM [id number] Ramona Philip RN Start: 04-28-2017 take 1 tablet by luz th once daily PROTONIX 40 MG TBEC One tablet by mouth daily PANTOPRAZOLE SODIUM [id number] Philip Martinez MD Start: 01-21-2017 End: 12-08-2017 [...] chloride 10 meq extended release oral tablet (11 sources) Start: 08-23-2017 End: 12-08-2017 take 1 tablet by mouth once daily Potassium Chloride 10 MEQ tablet Discontinued 10 meq PO DAILY August 23, 2017 12:00am December 08, 2017 [...] 2017 8:57am predniSONE 10 mg oral tablet (20 sources) Start: 01-08-2018 End: 08-07-2018 Prednisone 10 [...] mg / trimethoprim 160 mg oral tablet (10 sources) Dihydrofolate Reductase Inhibitor Antibacterial, Sulfonamide Antimicrobial Start: 02-26-2024 End: 04-13-2025 Sulfamethoxazole-Trimethopri m (Bactrim Ds) 800-160 mg tablet Discontinued 1 {tbl} PO TWICE A DAY 14 7 0 February 26, 2024 12:00am April 13, 2025 3:30pm triamcinolone acetonide 0.055 mg/actuat metered dose nasal spray (15 sources) Corticosteroid Start: 08-05-2016 take 1 spray(s ) nasal route once daily NASACORT ALLERGY 24HR 55 MCG/ACT AERO 1 spray each nostril daily TRIAMCINOLONE ACETONIDE [id number] Shannen Daly RN Start: 06-01-2016 End: 02-10-2022 Triamcinolone Acetonide 1 SP RAY aerosol,spray Discontinued 1 NMA NS DAILY June 01, 2016 12:00am February 10, 2022 1:06pm allergies Start: 06-01-2016 End: 02-10-2022 Triamcinolone Acetonide Disc ontinued 1 SPRAY NS DAILY June 01, 2016 12:00am February 10, 2022 1:06pm 24 hr venlafaxine 37.5 mg extended release oral capsule (15 sources) Serotonin and Norepinephrine Reuptake Inhibitor Start: 12-08-2017 End: 12-15-2017 take 1 capsule by mouth every twenty-four hours at bedtime Venlafaxine 37.5 mg capsule,extended release 24hr Discontinued 37.5 mg PO AT BEDTIME December 08, 2017 1:00am December 15, 2017 10:24am Start: 08-05-2016 take 1 tablet by luz once daily at bedtime VENLAFAXINE HCL 37.5 MG TABS One tablet by mouth daily at bedtime VENLAFAXINE HCL [id number] Shannen Daly RN vitamin b 12 1 mg oral tablet (4 sources) Vitamin B12 Start: 08-05-2016 take 1 tablet by mouth once daily VITAMIN B-12 1000 MCG TABS One tablet by mouth daily CYANOCOBALAMIN [id number] Shannen Daly RN zolpidem tartrate 5 mg oral tablet (6 sources) gamma-Aminobuty bob Acid-ergic Agonist Start: 04-28-2017 End: 05-02-2017 take 1 tablet by mouth at bedtime AMBIEN 5 MG TABS One tablet by mouth at bedtime. ZOLPIDEM TARTRATE [id number] Philip Martinez MD Problems Active Problems Problem Classification Problem Date Documented Date Episodic/Chronic Acute bronchitis (11 sources) Acute bronchitis; Translations: [Acute bronchitis, unspecified] 07-31-2018 Episodic Acute cerebrovascular disease (4 sources) Cerebrovascular accident; Translations: [Cerebral infarction, unspecified] Onset: 04-28-2017 04-28-2017 Chronic Asthma (15 sources) Asthma; Translations: [Unspecified asthma, uncomplicated] Onset: 08-05-2016 08-05-2016 Chronic Cancer of kidney and renal pelvis (2 sources) Malignant neoplasm of right kidney, except renal pelvis; Translations: [Malignant neoplasm of right renal pelvis] Onset: 07-03-2025 Chronic Cancer of other urinary organs (3 sources) Malignant epithelial neoplasm; 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, unspecified] 06-27-2025 Chronic Cardiac dysrhythmias (11 sources) Bradycardia; Translations: [Bradycardia, unspecified] 09-21-2021 Episodic Chronic obstructive pulmonary disease and bronchiectasis (11 sources) Bronchitis; Translations: [Bronchitis, not specified as acute or chronic] 07-31-2018 Episodic Conditions associated with dizziness or vertigo (11 sources) Vertigo; Translations: [Dizziness and giddiness] 07-31-2018 Episodic Disorders of lipid metabolism (15 sources) Hyperlipidemia; Translations: [Hyperlipidemia, unspecified] Onset: 08-05-2016 08-05-2016 Chronic E Codes: Fall (11 sources) Fall in home; Translations: [Unspecified fall, initial encounter] 09-21-2021 Episodic Essential hypertension (15 sources) Hypertensive disorder; Translations: [Essential hypertension] Onset: 08-05-2016 08-05-2016 Chronic Comment on above: CONTROLLED WITH MEDS Fluid and electrolyte disorders (17 sources) Dehydration; Translations: [Dehydration] 04-13-2025 Episodic Genitourinary symptoms and ill-defined conditions (1 source) Gross hematuria; Translations: [Gross hematuria] Onset: 06-16-2025 Episodic Malaise and fatigue (17 sources) Asthenia; Translations: [Weakness] 04-13-2025 Episodic Occlusion or stenosis of precerebral arteries (15 sources) Vertebral artery stenosis; Translations: [Stenosis of right vertebral artery] Onset: 08-05-2016 08-05-2016 Chronic Other circulatory disease (1 source) Hypotension, unspecified; Translations: [Hypotension, unspecified] Onset: 04-23-2025 Episodic Other connective tissue disease (1 source) Muscle weakness of limb; Translations: [Other symptoms and signs involving the musculoskeletal system] Episodic Other connective tissue disease (9 sources) Monoparesis - leg; Translations: [Other symptoms and signs involving the musculoskeletal system] 07-31-2018 Episodic Other connective tissue disease (1 source) Other symptoms and signs involving the musculoskeletal system; Translations: [Weakness of left lower extremity] 07-31-2018 Episodic Other diseases of kidney and ureters (1 source) Other specified disorders of kidney and ureter; Translations: [Other specified disorders of kidney and ureter] Onset: 06-19-2025 Chronic Other injuries and conditions due to external causes (11 sources) Closed injury of head; Translations: [Unspecified injury of head, initial encounter] 09-21-2021 Episodic Other upper respiratory infections (11 sources) Sinusitis; Translations: [Chronic sinusitis, unspecified] 07-31-2018 Chronic [place]-; endo-; and myocarditis; cardiomyopathy (15 sources) Obstructive hypertrophic cardiomyopathy; Translations: [Hypertrophic obstructive cardiomyopathy] Onset: 08-10-2016 08-10-2016 Chronic Respiratory failure; insufficiency; arrest (adult) (11 sources) Acute respiratory failure; Translations: [Acute respiratory failure with hypoxia] 07-31-2018 Episodic Septicemia (except in labor) (11 sources) Sepsis; Translations: [Sepsis, unspecified organism] 07-31-2018 Episodic Superficial injury; contusion (11 sources) Contusion of elbow; Translations: [Contusion of right elbow, initial encounter] 09-21-2021 Episodic Thyroid disorders (10 sources) Hypothyroidism; Translations: [Hypothyroidism, unspecified] Onset: 06-02-2025 03-05-2024 Chronic Transient cerebral ischemia (4 sources) Transient cerebral ischemia; Translations: [Transient cerebral ischemic attack, unspecified] Onset: 08-05-2016 08-05-2016 Chronic Unclassified (4 sources) Obstructive sleep apnea syndrome; Translations: [Obstructive sleep apnea (adult) (pediatric)] Onset: 10-13-2016 10-13-2016 Chronic Unclassified (3 sources) Long-term drug therapy; Translations: [Other intermediate frame tender (current) drug therapy] Onset: 08-05-2016 08-05-2016 Urinary tract infections (20 sources) Acute cystitis; Translations: [Acute cystitis without hematuria] Onset: 04-15-2025 02-26-2024 Episodic Comment on above: 03/2025 Past or Other Problems Problem Classification Problem Date Documented Date Episodic/Chronic Other aftercare (1 source) Other intermediate frame tender (current) drug therapy; Translations: [Other residential (current) drug therapy] Onset: 08-05-2016 08-05-2016 Episodic Other circulatory disease (11 sources) History of cerebrovascular accident; Translations: [Personal [...] Test Name Value Interpretation Reference Range Facility Urinalysis, Routine (Dipstic k)on 07-02-2025 BILIRUBIN URINE Negative Normal Negative [facility] Comment on above: Order Comment: CLEAN CATCH Performed By: #### L [id number] #### [facility] [address] [place], [address] Clarity (U) Clear Normal Clear [facility] Comment on above: Order Comment: CLEAN CATCH Performed By: #### L [id number] #### [facility] [address] [place], [address] Color (U) Yellow Normal Yellow [facility] Comment on above: Order Comment: CLEAN CATCH Performed By: #### L [id number] #### [facility] [address] [place], [address] GLUCOSE, UR Normal Normal Normal [facility] Comment on above: Order Comment: CLEAN CATCH Performed By: #### L [id number] #### [facility] [address] [place], [address] KETONE UR Negative Normal Negative [facility] Comment on above: Order Comment: CLEAN CATCH Performed By: #### L [id number] #### [facility] [address] [place], [address] LEUK ESTERASE 25 /ul Abnormal Negative [facility] Comment on above: Order Comment: CLEAN CATCH Performed By: #### L [id number] #### [facility] [address] [place], [address] Nitrite Ql (U) Negative Normal Negative [facility] Comment on above: Order Comment: CLEAN CATCH Performed By: #### L [id number] #### [facility] [address] [place], [address] OCCULT BLOOD-UR 250 /ul Abnormal Negative [facility] Comment on above: Order Comment: CLEAN CATCH Performed By: #### L 400.2010 #### [facility] [address] [place], [address] pH UR 6.5 Normal 5.0 - 8.0 [facility] Comment on above: Order Comment: CLEAN CATCH Performed By: #### L 400.2010 #### [facility] [address] [place], [address] PROT DIPSTX 30 mg/dl Abnormal Negative [facility] Comment on above: Order Comment: CLEAN CATCH Performed By: #### L 400.2010 #### [facility] [address] [place], [address] SP.GR. DIPSTX 1.010 Normal 1.002-1.030 [facility] Comment on above: Order Comment: CLEAN CATCH Performed By: #### L 400.2010 #### [facility] [address] [place], [address] UROBILI Normal Normal Normal [facility] Comment on above: Order Comment: CLEAN CATCH Performed By: #### L 400.2010 #### [facility] [address] [place], [address] Bilirubin Test strip Ql (U)O rdered By: Akhil Leslie on 07-01-2025 Bilirubin Ql (U) Negative Negative [facility] Ketones Test strip Ql (U)Ord ered By: Akhil Leslie on 07-01-2025 Ketones Ql (U) Negative Negative [facility] Nitrite Test strip Ql (U)Ord ered By: Akhil Leslie on 07-01-2025 Nitrite Ql (U) Negative Negative [facility] Protein Test strip Ql (U)Ord ered By: Akhil Leslie on 07-01-2025 Protein Ql (U) 30 mg/dl High Negative [facility] Urine clarityOrdered By: Mukund Leslie on 07-01-2025 Clarity (U) Clear Clear [facility] Urine color determinationOrd ered By: Akhil Leslie on 07-01-2025 Color (U) Yellow Yellow [facility] Urine glucose detectionOrder ed By: Akhil Leslie on 07-01-2025 Glucose Ql (U) Normal mg/dl Normal [facility] Urine leukocyte esterase det ection by dipstickOrdered By: Akhil Leslie on 07-01-2025 Leukocyte esterase Test strip Ql (U) 25 /ul High Negative [facility] Urine pHOrdered By: Akhil resendez on 07-01-2025 pH (U) 6.5 [pH] 5.0 - 8.0 [facility] Urine specific gravity measu rementOrdered By: Akhil Leslie on 07-01-2025 Specific gravity (U) [Rel density] 1.010 1.002-1.030 [facility] Urine urobilinogen measureme ntOrdered By: Akhil Leslie on 07-01-2025 Urobilinogen Ql (U) Normal mg/dl Normal [facility] Basic Metabolic Profile (BMP )on 06-30-2025 BUN Normal 4-19 [facility] Comment on above: Result Comment: Canc elled via OM: Order cancelled - Patient discharged Performed By: #### L 100.0100, L500.2500 ####[facility] [address] [place], [address] BUN/CRE Normal 10-20 [facility] Comment on above: Result Comment: Canc elled via OM: Order cancelled - Patient discharged Performed By: #### L 100.0100, L500.2500 ####[facility] [address] [place], [address] Calcium Normal 7.6-11.0 [facility] Comment on above: Result Comment: Canc elled via OM: Order cancelled - Patient discharged Performed By: #### L 100.0100, L500.2500 ####[facility] [address] [place], [address] CL Normal 98-108 [facility] Comment on above: Result Comment: Canc elled via OM: Order cancelled - Patient discharged Performed By: #### L 100.0100, L500.2500 ####[facility] [address] [place], [address] CO2 Normal 21.0-32.0 [facility] Comment on above: Result Comment: Canc elled via OM: Order cancelled - Patient discharged Performed By: #### L 100.0100, L500.2500 ####[facility] [address] [place], [address] CREAT,SERUM Normal 0.70-1.20 [facility] Comment on above: Result Comment: Canc elled via OM: Order cancelled - Patient discharged Performed By: #### L 100.0100, L500.2500 ####[facility] [address] [place], [address] eGFR Normal >60 [facility] Comment on above: Result Comment: Canc elled via OM: Order cancelled - Patient discharged Performed By: #### L 100.0100, L500.2500 ####[facility] [address] [place], [address] GAP Normal 5-15 [facility] Comment on above: Result Comment: Canc elled via OM: Order cancelled - Patient discharged Performed By: #### L 100.0100, L500.2500 ####[facility] [address] [place], [address] GLU Normal 70-99 [facility] Comment on above: Result Comment: Canc elled via OM: Order cancelled - Patient discharged Performed By: #### L 100.0100, L500.2500 ####[facility] [address] [place], [address] Potassium Normal 3.3-5.1 [facility] Comment on above: Result Comment: Canc elled via OM: Order cancelled - Patient discharged Performed By: #### L 100.0100, L500.2500 ####[facility] [address] [place], [address] Basic Metabolic Profile (BMP) Normal 133-145 [facility] Comment on above: Result Comment: Canc elled via OM: Order cancelled - Patient discharged Performed By: #### L 100.0100, L500.2500 ####[facility] [address] [place], [address] CBC W/Diff, Automatedon 08-0 -2024 Absolute Neut Normal 2.0-7.7 [facility] Comment on above: Result Comment: Canc elled via OM: Order cancelled - Patient discharged Performed By: #### L 100.0100, L500.2500 ####[facility] [address] [place], [address] HCT Normal 37-47 [facility] Comment on above: Result Comment: Canc elled via OM: Order cancelled - Patient discharged Performed By: #### L 100.0100, L500.2500 ####[facility] [address] [place], [address] HGB Normal 12.0-15.0 [facility] Comment on above: Result Comment: Canc elled via OM: Order cancelled - Patient discharged Performed By: #### L 100.0100, L500.2500 ####[facility] [address] [place], [address] MCH Normal 27.0-32.0 [facility] Comment on above: Result Comment: Canc elled via OM: Order cancelled - Patient discharged Performed By: #### L 100.0100, L500.2500 ####[facility] [address] [place], [address] MCHC Normal 32-36 [facility] Comment on above: Result Comment: Canc elled via OM: Order cancelled - Patient discharged Performed By: #### L 100.0100, L500.2500 ####[facility] [address] [place], [address] MCV Normal 81-99 [facility] Comment on above: Result Comment: Canc elled via OM: Order cancelled - Patient discharged Performed By: #### L 100.0100, L500.2500 ####[facility] [address] [place], [address] NEUT% Normal 47-70 [facility] Comment on above: Result Comment: Canc elled via OM: Order cancelled - Patient discharged Performed By: #### L 100.0100, L500.2500 ####[facility] [address] [place], [address] PLT Normal 150-450 [facility] Comment on above: Result Comment: Canc elled via OM: Order cancelled - Patient discharged Performed By: #### L 100.0100, L500.2500 ####[facility] [address] [place], [address] RBC Normal 4.2-5.4 [facility] Comment on above: Result Comment: Canc elled via OM: Order cancelled - Patient discharged Performed By: #### L 100.0100, L500.2500 ####[facility] [address] [place], [address] RDW CV Normal 11.6-14.6 [facility] Comment on above: Result Comment: Canc elled via OM: Order cancelled - Patient discharged Performed By: #### L 100.0100, L500.2500 ####[facility] [address] [place], [address] RDW SD Normal 35.1-43.9 [facility] Comment on above: Result Comment: Canc elled via OM: Order cancelled - Patient discharged Performed By: #### L 100.0100, L500.2500 ####[facility] [address] [place], [address] WBC Normal 4.4-11.0 [facility] Comment on above: Result Comment: Canc elled via OM: Order cancelled - Patient discharged Performed By: #### L 100.0100, L500.2500 ####[facility] [address] [place], [address] Absolute lymphocyte countOrd ered By: Akhil Leslie on 06-29-2025 Lymphocytes Auto (Unsp spec) [#/Vol] 1.74 10*3/uL 0.83-4.51 [facility] Absolute neutrophil countOrd ered By: Akhil Leslie on 06-29-2025 Neutrophils (Bld) [#/Vol] 8.5 10*3/uL High 2.0-7.7 [facility] Anion gap in Serum or Plasma Ordered By: Akhil Leslie on 06-29-2025 Anion gap [Moles/Vol] 10 mmol/L 5-15 [facility] Automated blood erythrocyte countOrdered By: Akhil Leslie on 06-29-2025 RBC (Bld) [#/Vol] 3.23 10*6/uL Low 4.2-5.4 [facility] Comment on above: Performed By: #### L 501.9520 #### [facility] [address] [place], [address] Automated blood hematocrit ( percentage)Ordered By: Akhil Leslie on 06-29-2025 Hematocrit (Bld) [Volume fraction] 28.5 % Low 37-47 [facility] Comment on above: Performed By: #### L 501.9520 #### [facility] [address] [place], [address] Automated lymphocyte count a s percentage of total leukocytesOrdered By: Akhil Leslie on 06-29-2025 Lymphocytes/100 WBC Auto (Unsp spec) 15.1 % Low 19-41 [facility] BUN/creatinine ratioOrdered By: Akhil Leslie on 06-29-2025 Urea nitrogen/Creatinine [Mass ratio] 12.9 mg/mg 10-20 [facility] Basic Metabolic Profile (BMP )on 06-29-2025 BUN/CRE 12.9 RATIO Normal 10-20 [facility] Comment on above: Performed By: #### L 058.5298 #### [facility] [address] [place], [address] ECRCL 13.01 ml/min Low 50-250 [facility] Comment on above: Performed By: #### L 464.2807 #### [facility] [address] [place], [address] GAP 10 Normal 5-15 [facility] Comment on above: Performed By: #### L 923.7635 #### [facility] [address] [place], [address] Potassium [Moles/Vol] 4.1 mmol/L Normal 3.3-5.1 [facility] Comment on above: Performed By: #### L 648.3954 #### [facility] [address] [place], [address] Basophil percentageOrdered B y: Akhil Leslie on 06-29-2025 Basophils/100 WBC (Bld) 0.4 % 0-1 [facility] Comment on above: Performed By: #### L 300.7162 #### [facility] [address] [place], [address] CBC W/Diff, Automatedon 08-0 Absolute Lymph 1.74 X10 3/uL Normal 0.83-4.51 [facility] Comment on above: Performed By: #### L 946.3428 #### [facility] [address] [place], [address] Absolute Neut 8.5 X10 3/uL High 2.0-7.7 [facility] Comment on above: Performed By: #### L 786.6551 #### [facility] [address] [place], [address] IG% 0.800 Normal 0.0-0.9 [facility] Comment on above: Result Comment: IG% - Immature Granulocytes (promyelocytes, myelocytes and metamyelocytes) > 1% indicates that a LEFT SHIFT is Present. Performed By: #### L 012.6120 #### [facility] [address] [place], [address] Lymphocytes/100 WBC (Bld) 15.1 % Low 19-41 [facility] Comment on above: Performed By: #### L 501.9520 #### [facility] [address] [place], [address] Nucleated RBC (Bld) [#/Vol] 0 10*3/uL Normal 0-5 [facility] Comment on above: Performed By: #### L 633.20 #### [facility] [address] [place], [address] RDW SD 49.4 fl High 35.1-43.9 [facility] Comment on above: Performed By: #### L 687.9520 #### [facility] [address] [place], [address] Carbon dioxide, total [Moles /volume] in Central venous bloodOrdered By: Akhil Leslie on 06-29-2025 CO2 [Moles/Vol] 14.6 mmol/L Low 21.0-32.0 [facility] Comment on above: Performed By: #### L 083.1420 #### [facility] [address] [place], [address] Chloride assayOrdered By: Julita Leslie on 06-29-2025 Chloride [Moles/Vol] 111 mmol/L High 98-108 [facility] Comment on above: Performed By: #### L 744.0320 #### [facility] [address] [place], [address] Eosinophil percentageOrdered By: Akhil Leslie on 06-29-2025 Eosinophils/100 WBC (Bld) 1.0 % 0-5 [facility] Comment on above: Performed By: #### L 501.9520 #### [facility] [address] [place], [place], [address] Erythrocyte distribution wid th ratioOrdered By: Akhil Leslie on 06-29-2025 Erythrocyte distribution width (RBC) [Ratio] 15.4 % High 11.6-14.6 [facility] Comment on above: Performed By: #### L 501.9520 #### [facility] [address] [place], [place], [address] Erythrocyte distribution wid th standard deviationOrdered By: Akhil Leslie on 06-29-2025 Erythrocyte distribution width (RBC) [Ratio] 49.4 fl High 35.1-43.9 [facility] Glomerular filtration rate ( GFR) estimation/1.73 sq m using serum, plasma, or whole bOrdered By: Akhil Leslie on 06-29-2025 GFR/1.73 sq M.predicted among non-blacks MDRD (S/P/Bld) [Vol rate/Area] 19 mL/min/{1.73_m2} Low >60 [facility] Comment on above: mL/min/1.73m2 CKD-EP I Creatinine Equation (2020) Result Comment: mL/m in/1.73m2 CKD-EPI Creatinine Equation (2020) Performed By: #### L 501.9520 #### [facility] [address] [place], [place], [address] Hemoglobin measurementOrdere d By: Akhil Leslie on 06-29-2025 Hemoglobin (Bld) [Mass/Vol] 9.7 g/dL Low 12.0-15.0 [facility] Comment on above: Performed By: #### L 501.9520 #### [facility] [address] [place], [place], [address] Immature granulocytes/100 WB C Auto (Bld)Ordered By: Akhil Leslie on 06-29-2025 Immature granulocytes/100 WBC (Bld) 0.800 % 0.0-0.9 [facility] Comment on above: IG% - Immature Granu locytes (promyelocytes, myelocytes and metamyelocytes) > 1% indicates that a LEFT SHIFT is Present. MCV (mean corpuscular volume ) determinationOrdered By: Akhil Leslie on 06-29-2025 MCV (RBC) [Entitic vol] 88.2 fL Invalid Interpretation Code 81-99 [facility] Comment on above: Delta: 94.6 on 06/28 Performed By: #### L 501.9520 #### [facility] [address] [place], [address] Mean corpuscular hemoglobin (MCH) determinationOrdered By: Akhil Leslie on 06-29-2025 MCH (RBC) [Entitic mass] 30.0 pg 27.0-32.0 [facility] Comment on above: Performed By: #### L 501.9520 #### [facility] [address] [place], [address] Mean corpuscular hemoglobin concentration (MCHC) determinationOrdered By: Akhil Leslie on 06-29-2025 MCHC (RBC) [Mass/Vol] 34.0 g/dL 32-36 [facility] Comment on above: Performed By: #### L 501.9520 #### [facility] [address] [place], [address] Mean platelet volume determi nationOrdered By: Akhil Leslie on 06-29-2025 Platelet mean volume (Bld) [Entitic vol] 10.2 fL 6.2-12.0 [facility] Comment on above: Performed By: #### L 501.9520 #### [facility] [address] [place], [address] Monocyte percentageOrdered B y: Akhil Leslie on 06-29-2025 Monocytes/100 WBC (Bld) 9.1 % 0-10 [facility] Comment on above: Performed By: #### L 501.9520 #### [facility] [address] [place], [address] Neutrophil percentageOrdered By: Akhil Leslie on 06-29-2025 Neutrophils/100 WBC (Bld) 73.6 % High 47-70 [facility] Comment on above: Performed By: #### L 501.9520 #### [facility] [address] [place], [address] Nucleated red blood cell per centageOrdered By: Akhil Leslie on 06-29-2025 Nucleated RBC/100 WBC (Bld) [Ratio] 0 % 0-5 [facility] Platelet countOrdered By: Julita Leslie on 06-29-2025 Platelets (Bld) [#/Vol] 130 10*3/uL Low 150-450 [facility] Comment on above: Performed By: #### L 501.9520 #### [facility] [address] [place], [address] Potassium measurement (mass/ volume)Ordered By: Akhil Leslie on 06-29-2025 Potassium (Unsp spec) [Mass/Vol] 4.1 mmol/L 3.3-5.1 [facility] Serum creatinine measurement (mass/volume)Ordered By: Akhil Leslie on 06-29-2025 Creatinine [Mass/Vol] 2.41 mg/dL High 0.70-1.20 [facility] Comment on above: Performed By: #### L 501.9520 #### [facility] [address] [place], [address] Serum glucose measurement (m ass/volume)Ordered By: Akhil Leslie on 06-29-2025 Glucose [Mass/Vol] 118 mg/dL High 70-99 [facility] Comment on above: Performed By: #### L 501.9520 #### [facility] [address] [place], [address] Serum or plasma calcium jayy urement (mass/volume)Ordered By: Akhil Leslie on 06-29-2025 Calcium [Mass/Vol] 7.1 mg/dL Low 7.6-11.0 [facility] Comment on above: Performed By: #### L 501.9520 #### [facility] [address] [place], [address] Serum or plasma urea nitroge n measurement (mass/volume)Ordered By: Akhil Leslie on 06-29-2025 Urea nitrogen [Mass/Vol] 31 mg/dL High 4-19 [facility] Comment on above: Performed By: #### L 501.9520 #### [facility] [address] [place], [address] Sodium levelOrdered By: Akhil Leslie on 06-29-2025 Sodium [Moles/Vol] 136 mmol/L 133-145 [facility] Comment on above: Performed By: #### L 501.9520 #### [facility] [address] [place], [address] White blood cell (WBC) count Ordered By: Akhil Leslie on 06-29-2025 WBC (Bld) [#/Vol] 11.5 10*3/uL High 4.4-11.0 [facility] Comment on above: Performed By: #### L 501.9520 #### [facility] [address] [place] [place], [address] BRCon 06-28-2025 RC Normal [facility] Comment on above: Result Comment: [id number] ON RC TRANSFUSED 06/28/25 1141 [id number] OP RC TRANSFUSED 06/28/25 1456 Performed By: #### B RC, BTS ####[facility] [address] [place], [address] Basic Metabolic Profile (BMP )on 06-28-2025 BUN/CRE 11.4 RATIO Normal 10-20 [facility] Comment on above: Performed By: #### L 501.5200 #### [facility] [address] [place], [address] Calcium [Mass/Vol] 7.6 mg/dL Normal 7.6-11.0 [facility] Comment on above: Performed By: #### L 501.5200 #### [facility] [address] [place], [address] Chloride [Moles/Vol] 110 mmol/L High 98-108 [facility] Comment on above: Performed By: #### L 501.5200 #### [facility] [address] [place], [address] CO2 [Moles/Vol] 15.3 mmol/L Low 21.0-32.0 [facility] Comment on above: Performed By: #### L 501.5200 #### [facility] [address] [place], [address] Creatinine [Mass/Vol] 2.38 mg/dL High 0.70-1.20 [facility] Comment on above: Performed By: #### L 501.5200 #### [facility] [address] [place], [address] ECRCL 13.17 ml/min Low 50-250 [facility] Comment on above: Performed By: #### L 501.5200 #### [facility] [address] [place], [address] GAP 12 Normal 5-15 [facility] Comment on above: Performed By: #### L 501.5200 #### [facility] [address] [place], [address] GFR/1.73 sq M.predicted among non-blacks MDRD (S/P/Bld) [Vol rate/Area] 19 mL/min/{1.73_m2} Low >60 [facility] Comment on above: Result Comment: mL/m in/1.73m2 CKD-EPI Creatinine Equation (2020) Performed By: #### L 501.5200 #### [facility] [address] [place], [address] Glucose [Mass/Vol] 132 mg/dL High 70-99 [facility] Comment on above: Performed By: #### L 501.5200 #### [facility] [address] [place], [address] Potassium [Moles/Vol] 4.6 mmol/L Normal 3.3-5.1 [facility] Comment on above: Performed By: #### L 501.5200 #### [facility] [address] [place], [address] Sodium [Moles/Vol] 137 mmol/L Normal 133-145 [facility] Comment on above: Performed By: #### L 501.5200 #### [facility] [address] [place], [address] Urea nitrogen [Mass/Vol] 27 mg/dL High 4-19 [facility] Comment on above: Performed By: #### L 501.5200 #### [facility] [address] [place], [address] CBC W/Diff, Automatedon 08-0 2-2024 Absolute Lymph 0.78 X10 3/uL Low 0.83-4.51 [facility] Comment on above: Performed By: #### L 501.5200 #### [facility] [address] [place], [address] Absolute Neut 13.8 X10 3/uL High 2.0-7.7 [facility] Comment on above: Performed By: #### L 501.5200 #### [facility] [address] [place], [address] Basophils/100 WBC (Bld) 0.1 % Normal 0-1 [facility] Comment on above: Performed By: #### L 501.5200 #### [facility] [address] [place], [address] Eosinophils/100 WBC (Bld) 0.0 % Normal 0-5 [facility] Comment on above: Performed By: #### L 501.5200 #### [facility] [address] [place], [address] Erythrocyte distribution width (RBC) [Ratio] 12.8 % Normal 11.6-14.6 [facility] Comment on above: Performed By: #### L 501.5200 #### [facility] [address] [place], [address] Hematocrit (Bld) [Volume fraction] 19.3 % Low 37-47 [facility] Comment on above: Performed By: #### L 501.5200 #### [facility] [address] [place], [address] Hemoglobin (Bld) [Mass/Vol] 6.4 g/dL Low 12.0-15.0 [facility] Comment on above: Performed By: #### L 501.5200 #### [facility] [address] [place], [address] IG% 0.700 Normal 0.0-0.9 [facility] Comment on above: Result Comment: IG% - Immature Granulocytes (promyelocytes, myelocytes and metamyelocytes) > 1% indicates that a LEFT SHIFT is Present. Performed By: #### L 501.5200 #### [facility] [address] [place], [address] Lymphocytes/100 WBC (Bld) 4.9 % Low 19-41 [facility] Comment on above: Performed By: #### L 501.5200 #### [facility] [address] [place], [address] MCH (RBC) [Entitic mass] 31.4 pg Normal 27.0-32.0 [facility] Comment on above: Performed By: #### L [id number] #### [facility] [address] [place], [address] MCHC (RBC) [Mass/Vol] 33.2 g/dL Normal 32-36 [facility] Comment on above: Performed By: #### L [id number] #### [facility] [address] [place], [address] MCV (RBC) [Entitic vol] 94.6 fL Normal 81-99 [facility] Comment on above: Performed By: #### L [id number] #### [facility] [address] [place], [address] Monocytes/100 WBC (Bld) 7.9 % Normal 0-10 [facility] Comment on above: Performed By: #### L [id number] #### [facility] [address] [place], [address] Neutrophils/100 WBC (Bld) 86.4 % High 47-70 [facility] Comment on above: Performed By: #### L 501.5200 #### [facility] [address] [place], [address] Nucleated RBC (Bld) [#/Vol] 0 10*3/uL Normal 0-5 [facility] Comment on above: Performed By: #### L 501.5200 #### [facility] [address] [place], [address] Platelet mean volume (Bld) [Entitic vol] 10.3 fL Normal 6.2-12.0 [facility] Comment on above: Performed By: #### L 501.5200 #### [facility] [address] [place], [address] Platelets (Bld) [#/Vol] 177 10*3/uL Normal 150-450 [facility] Comment on above: Performed By: #### L 501.5200 #### [facility] [address] [place], [address] RBC (Bld) [#/Vol] 2.04 10*6/uL Low 4.2-5.4 [facility] Comment on above: Performed By: #### L 501.5200 #### [facility] [address] [place], [address] RDW SD 44.2 fl High 35.1-43.9 [facility] Comment on above: Performed By: #### L 501.5200 #### [facility] [address] [place], [address] WBC (Bld) [#/Vol] 15.9 10*3/uL High 4.4-11.0 [facility] Comment on above: Performed By: #### L 501.5200 #### [facility] [address] [place], [address] Type AND Screenon 5 ABO and Rh group Nom (Bld) Blood group O Rh(D) positive Normal [facility] Comment on above: Order Comment: CMV N EG? NNumber of units to transfuse: 2Is there a >20% drop in pt's BP? YIs the pt's CVP (central venous pressure) <3 cm/H2O? YIs the EBL >/= 1000ml in adults or >/= 12ml/kg in children?YIs there an orthostatic change in pt's BP(SBP drop>10mmHg)? YIs pt's HR > 100 bpm? NReason for Ordering Blood: AcuteAre the blood/blood products to be transfused? YIs the patient having/had surgery? YWhrg Damian Performed By: #### B RC, BTS ####[facility] [address] [place], [address] Discharge Instructionon 08 Discharge Instruction [facility] Medical Records Department [address] [place] [address] Instructions for Home/Discharge Instructions 06/27/25 1026 MR#: [id number] Acct: [id number] Name: ALLIE MARIE Rep #: [id number] : 1935 89 From: Akhil Leslie MD PCP: Dr. Angel Juan MD Status:ADM IN Discharge Instructions DC O2, CPAP, BIPAP needs Home O2 Discharge instructions: No Dressing / Incision Discharge Activity: Return to Normal Activity and May Not Drive (while taking narcotic pain medications.) Dressing / Incision Call your doctor if your incision/area has: Continuous Slow Oozing and Sudden Increased Bleeding Call your doctor if you observe: Fever of 101 or Higher, Inability to have a bowel movement and Uncontrolled pain Cleanse incision/area with: Soap Water Catheter: Macias to leg bag Drain: [place] Follow Up Care Please Follow Up With: Akhil Leslie MD When: Call [phone] for an appointment 10 days Test Results: Test results from this visit will be discussed in further detail at your follow-up appointment, if applicable. Discharge Plan Admission Admit Date/Time: 06/27/25 05:45 Primary Reason for Your Visit: Robotic right radical nephro ureterectomy Attending Provider: Akhil Leslie Primary Care Provider: Angel Juan Consulting Providers: Viet Srinivasan Discharge Orders/Prescriptions Prescriptions: New docusate sodium [Colace] 100 mg capsule 100 mg PO BID Qty: 20 0RF ciprofloxacin HCl 250 mg tablet 250 mg PO DAILY Qty: 10 0RF oxycodone 5 mg tablet 5 mg PO Q6H PRN (Reason: pain) 7 Days Qty: 10 0RF Continued albuterol sulfate 90 mcg/actuation aerosol powdr breath activated 2 inh inhalation Q6H PRN (Reason: shortness of breath or wheezing) metoprolol succinate 100 mg tablet extended release 24 hr 100 mg PO DAILY levothyroxine 25 mcg tablet 50 mcg PO DAILY rosuvastatin 40 mg tablet 40 mg PO DAILY losartan 50 mg tablet 50 mg PO DAILY Qty: 90 3RF Held clopidogrel 75 MG tablet 75 mg PO DAILY Hold Instructions: Resume on 07/11/25. aspirin 81 MG tablet,chewable 81 mg PO DAILY@0800 Hold Instructions: Resume on 07/11/25. Discontinued ibuprofen 400 mg tablet 400 mg PO Q6H PRN (Reason: pain) Qty: 14 0RF Referrals / Follow Up: Angel Juan MD [Primary Care Provider] - Akhil Leslie MD [Med Staff - Active Staff] - Disposition Disposition (needs filled in before D/C Order can be placed): Home, Self Care 06/27/25 1026 Akhil Leslie MD CC: Dr. Viet Srinivasan MD; Dr. Angel Juan MD Signed Normal [facility] Immunohistochemical Stainson 06-27-2025 Immunohistochemical Stains -------- Patient Age/Sex Location Account Attending Physician -------- ALLIE MARIE 89/F MS3 [id number] Dr. Akhil Leslie MD -------- Specimen: [id number] Received: 06/27/25 Status: IRA Rivera Num: [id number] Spec Type: KIDNEY Subm Dr: Dr. Akhil Leslie MD HEADER OPERATION: Laparoscopic robotic nephrectomy, urethrectomy PRE-OP DIAGNOSIS: Right renal pelvic mass urothelial carcinoma TISSUE SUBMITTED: A- Right kidney, right ureter -------- MICROSCOPIC DIAGNOSIS A. Right kidney and ureter, nephroureterectomy: - Non-invasive papillary urothelial carcinoma, high grade - see Synoptic Report. 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 SYNOPTIC REPORT FOR RENAL PELVIC CARCINOMA: Procedure (nu=nephroureterectom y):???NU Tumor site:???RENAL PELVIS Laterality (r=right, l=left, ns=not specified):???R Invasive/papillary tumor size (cm) (na=not applicable):???3.5 cm Histologic type:???papillary urothelial carcinoma Grade (Urothelial: l=low, h=high; Adeno/Squamous cell: 1-3): H Lymphovascular invasion (n=no, y=yes):???n ??? Tumor extent (N=no, Y=yes, NA=not applicable): ? Invasion of subepithelial tissue: N ? Invasion of muscle: N ? Invasion of peripelvic fat: N ? Invasion of renal parenchyma: N ? Invasion of perinephric fat: N ? Invasion of adjacent organs: N ??? Margins (N=negative, P=positive, NA=not applicable): ? Distal ureter/bladder cuff: N ? Other margins: N ??? Regional lymph nodes (NA=not applicable): NA ? Number examined: 0 ? Number positive: NA ? Size of largest metastatic deposit (cm): NA ??? Non-neoplastic kidney:???benign simple cyst (0.9 cm), patchy mild chronic inflammation Additional findings:???p53 is wild type. Ki67q is approximately 25%. 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 Pathologic Staging Definitions (pTNM): Primary Tumor (pT) pTX:? Cannot be assessed pT0:? No evidence of primary tumor -------- Patient Age/Sex Location Account Attending Physician -------- ALLIE MARIE 89/F MS3 [id number] Dr. Akhil Leslie MD -------- industrial management teacher:? 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 Invades subepithelial connective tissue pT2:? Invades muscle pT3:? Invades peripelvic fat or renal parenchyma pT4:? Invades adjacent organs or perinephric fat Regional Lymph Nodes (pN) (hilar, paracaval, aortic, retroperitoneal) pNX:? Cannot be assessed pN0:? No regional lymph node metastasis pN1:? 1 lymph node with tumor deposit pN2:? 1 lymph node with tumor deposit > 2 cm or metastases in multiple nodes Distant Metastasis (pM) pM1:? Distant metastasis ??? The above synoptic report complies, in slightly modified form, with the guidelines of the [employer] and the Association of Directors of Anatomic and Surgical Pathology for the reporting of cancer specimens MICROSCOPIC DESCRIPTION Slides are reviewed. ???All matched controls reacted appropriately. These tests were developed and their performance characteristics determined by [facility]. They may not have been cleared or approved by the U.S. Food and Drug Administration. The FDA has determined that such clearance or approval is not necessary.??? The above immunohistochemical/d ualISH???markers are reviewed by the Pathologist. GROSS DESCRIPTION A. Received in formalin labeled with the patient's name and date of . Designated as right kidney and RT ureter is a 275 g radical nephrectomy with attached Gerota's fascia, overall measuring 12.1 x 9.3 x 3.7 cm. The attached ureter measures 14.3 cm in length by 0.8 cm in diameter. Thrombi are not present. An adrenal gland is not present. Ink cassidy:Perinephric fat: BlackHilar margins: BlackGerota's fascia: OrangeProximal ureter: GreenMid ureter: OrangeDistal ureter: BlueUreter margin: Black Sectioning reveals that the kidney itself measures 8.0 x 4.9 x 3.3 cm. There is a 3.5 x 2.2 x 0.7 cm schafer-white to pink, irregular, friable and papillary mass located within the renal pelvis. The mass appears to be contained to the renal pelvis, abuts the perinephric fa (more content not included)... Normal [facility] Comment on above: Performed By: #### L 501.9520 #### [facility] [address] [place], [address] MR/POSTOP.ANEon 06-27-2025 MR/POSTOP[facility] Medical Records Department [address] [place] [address] Anesthesia Postop Eval I 06/27/25 1038 MR#: [id number] Acct: [id number] Name: ALLIE MARIE Rep #: [id number] : 1935 89 From: Gisela Mccarthy CRNA PCP: Dr. Angel Juan MD Status:ADM [place] Y Race: C Location: [place] [address] Anesthesia: Postop Eval I Current Vital Signs Temperature: 97 F Pulse Rate: 64 Blood Pressure: 171/87 Respiratory Rate: 16 Pulse Ox: 100 Oxygen Delivery Method: Simple Mask Oxygen Flow Rate (L/min): 6 Assessment Airway patent: Yes Spontaneous unlabored respirations: Yes Mental status: Awake and Calm nausea: No Vomiting: No Anesthesia Complication: No Fluid Hydration Crystalloid volume administer (ml): 1,500 Total IV fluid infused: 1,500 Progress Note Anesthesia document: Postop Eval 1 completed: Yes 06/27/25 1039 Date Gisela Mccarthy CRNA Cosigner Signature: Date CC: Signed Normal [facility] Operative Reporton Operative Report [facility] Medical Records Department [address] [place] [address] Operative Report 06/27/25 1026 MR#: [id number] Acct: [id number] Name: ALLIE MARIE Rep #: [id number] : 1935 89 From: Akhil Leslie MD PCP: Dr. 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: Yes [employer] [place]: Mele Taylor Tasks completed by assistant product manager: Opening, Closing, Opening closing, Harvesting grafts, Dissecting tissue, Removing tissue, Implanting device, Altering tissue, Insert Trochanter, Hemostasis: Clamp, Hemostasis: Tie, Hemostasis: Electrocautery, Trocar, Retracting and Other Type of Anesthesia: General RN Documented Start/Stop Times: Operation Date: 06/27/25 07:30 Case Time Into Pre-Op 06/27/25 06:00 Anesthesia Start 06/27/25 07:34 Into Room 06/27/25 07:34 Out of Pre-Op 06/27/25 07:34 Procedure Start 06/27/25 07:52 Procedure End 06/27/25 10:22 Procedure Start Time: 07:52 Procedure Stop Time: 10:27 Select all DRAINS/GRAFTS/IMPLANT S that apply: Drains Drain details: macias 20 fr Estimated Blood Loss: 400 cc Specimen collected: Yes Description of specimen(s) removed: Kidney and ureter complete Description of surgery: This is a 89-year-old female who started having heavy bleeding from a tumor coming from her right kidney she underwent ureteroscopy and biopsy 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 Patient was consented for nephroureterostomy in the right side. She was taken back to the operating room after induction of anesthesia she was placed for supine on the table we then placed in dorsolithotomy position the urethra vaginal area prepped and draped in usual fashion I then went into the bladder with a 24 Cymraes noncontinuous bipolar resectoscope I bent the loop to make a sharp tip I then identified the right ureteral orifice and then insert circumferentially I scarred all the way around the right ureteral orifice in order to to dissect the ureter off the bladder and went deep into the perivesical fat and circumstantially freed up the ureter from the bladder in order to allow removal of the ureter from the bladder later on. Once this was done then the ureter was completely freed from the bladder circumferentially and then I placed a 20 Cymraes catheter in the bladder the patient was then repositioned for a full flank approach to the kidney on the right side axillary roll was placed all pressure points were padded once she was a position in a modified flank position then Veress needle was planed to the peritoneal cavity we insufflated the peritoneal cavity CO2 gas then we put in our ports I put a right arm port camera port left arm port and second left arm port an air seal port for the graduate research assistant. The robot was docked and then once he got inside the abdomen inspected he had a large floppy liver overcoming the kidney she had prior looks like a prior gallbladder was surgery in the past extensive he gins of the colon to the anterior abdominal wall this was all taken down sharply with careful dissection and then reflected the colon off the lateral sidewall and then dissected the way down to the pelvis reflecting the colon until I got down to the pelvic brim then at the pelvic brim dissected try to find the ureter the ureter was identified encounter little venous bleeding around the area of the pelvic brim this was controlled with a clip and cautery I then identified the ureter and got underneath the ureter and then dissected the ureter and cephalad and then inferiorly I dissect the ureter inferiorly all the way down to the bladder as I was gently pulling up the ureter dissecting around and then the ureter came free since it only been freed up from the lower part of the prior part of the surgery the ureter came free and then we put a clip on the ureter to prevent any extract leakage of urine from the ureter. After the ureter was freed from the bladder distally then I brought the ureter up we then docked to the other arm and then I was able to elevate and retract the ureter up in order to get underneath the Gerota's fat and the ureter as I elevated up the kidney (more content not included)... Normal [facility] MR/PAT.EUNICEon 06-24-2025 MR/PAT.EUNICE [facility] Medical Records Department [address] [place] [address] PAT - Anesthesia 06/24/25 09 MR#: [id number] Acct: [id number] Name: ALLIE MARIE Rep #: [id number] : 1935 89 From: Viet Srinivasan MD PCP: Dr. Angel Juan MD Status:PRE IN Y Race: C Location: [facility] Pre-Assessment Diagnosis/Proposed Procedure Planned Operative Procedure(s): lap nephroureterectomy right TURB Anesthesia History Anesthesia History - increment manager: Anesthesia History - increment manager Hx Hospitalization Yes: SYNCOPE/SEVERE 06/18/25 08:24 DEHYDRATION [...] take am of surgery PONV PONV - increment manager: PONV - increment manager Female Yes 06/18/25 08:24 HX of Motion [...] 06/13/25 15:06 Respiratory Assessment Respiratory Assessment - increment manager: Respiratory Tract Infection Hx - increment manager Hx Respiratory Tract Infection No 06/18/25 08:24 STOP Sleep Apnea STOP Sleep Apnea - increment manager: STOP Sleep Apnea - increment manager Hx Hypertension Yes: CONTROLLED WITH MEDS 06/18/25 [...] Tobacco Use History Tobacco Use History - increment manager: Tobacco Use History - increment manager Tobacco Use Smoking Status Former smoker 06/18/25 08:24 Hx Tobacco Use No 06/18/25 08:24 Years Smoking Packs Smoked per Day Smoking Cessation Date was No - quit smoking greater 06/18/25 08:24 within the last 15 years than 15 years ago Hx Smoking Cessation Date Hx Smoking Cessation No 06/18/25 08:24 Counseling Hematologic Medial History Hematologic Hx - increment manager: Hematologic Medical Hx - manager medicaid Hx of Blood Transfusion No 06/18/25 08:24 [...] /Reproductio n History /Reproductiv e History - increment manager: /Reproductiv e Hx- increment manager Hx Now No 06/18/25 08:24 Gestational Age (in weeks): EDC: Hx Hx Para Hx Section SAB No 06/18/25 08:24 PFSH Medical History (Updated 06/18/25 @ 08:31 by Gogo Schriber) Wears glasses Open wound Thyroid disease Walker [...] ???Type aspi (more content not included)... Normal [facility] CBC-Complete Blood Cnt No Di ffon 06-23-2025 Erythrocyte distribution width (RBC) [Ratio] 12.5 % Normal 11.6-14.6 [facility] Comment on above: Performed By: #### L 300.3900 #### [facility] [address] [place], [address] Hematocrit (Bld) [Volume fraction] 30.3 % Low 37-47 [facility] Comment on above: Performed By: #### L 300.3900 #### [facility] [address] [place], [address] Hemoglobin (Bld) [Mass/Vol] 9.7 g/dL Low 12.0-15.0 [facility] Comment on above: Performed By: #### L 300.3900 #### [facility] [address] [place], [address] MCH (RBC) [Entitic mass] 30.6 pg Normal 27.0-32.0 [facility] Comment on above: Performed By: #### L 300.3900 #### [facility] [address] [place], [address] MCHC (RBC) [Mass/Vol] 32.0 g/dL Normal 32-36 [facility] Comment on above: Performed By: #### L 300.3900 #### [facility] [address] [place], [address] MCV (RBC) [Entitic vol] 95.6 fL Normal 81-99 [facility] Comment on above: Performed By: #### L 300.3900 #### [facility] [address] [place], [address] Platelet mean volume (Bld) [Entitic vol] 10.1 fL Normal 6.2-12.0 [facility] Comment on above: Performed By: #### L 300.3900 #### [facility] [address] [place], [address] Platelets (Bld) [#/Vol] 240 10*3/uL Normal 150-450 [facility] Comment on above: Performed By: #### L 300.3900 #### [facility] [address] [place], [address] RBC (Bld) [#/Vol] 3.17 10*6/uL Low 4.2-5.4 [facility] Comment on above: Performed By: #### L 300.3900 #### [facility] [address] [place], [address] RDW SD 43.1 fl Normal 35.1-43.9 [facility] Comment on above: Performed By: #### L 300.3900 #### [facility] [address] [place], [address] WBC (Bld) [#/Vol] 6.8 10*3/uL Normal 4.4-11.0 [facility] Comment on above: Performed By: #### L 300.3900 #### [facility] [address] [place], [address] MR/PAT.ANEon 06-18-2025 MR/PAT.ANE [facility] Medical Records Department [address] [place] [address] PAT - Anesthesia 06/18/25 1822 MR#: [id number] Acct: [id number] Name: ALLIE MARIE Rep #: [id number] : 1935 89 From: Viet Srinivasan MD PCP: Dr. Angel Juan MD Status:PRE [facility] [place] Race: C [place] [facility] Pre-Assessment Diagnosis/Proposed Procedure Planned Operative Procedure(s): lap nephroureterectomy right TURB Anesthesia History Anesthesia History - increment manager: Anesthesia History - increment manager Hx Hospitalization Yes: SYNCOPE/SEVERE 06/18/25 08:24 DEHYDRATION [...] take am of surgery PONV PONV - increment manager: PONV - increment manager Female Yes 06/18/25 08:24 HX of Motion [...] 06/13/25 15:06 Respiratory Assessment Respiratory Assessment - increment manager: Respiratory Tract Infection Hx - increment manager Hx Respiratory Tract Infection No 06/18/25 08:24 STOP Sleep Apnea STOP Sleep Apnea - increment manager: STOP Sleep Apnea - increment manager Hx Hypertension Yes: CONTROLLED WITH MEDS 06/18/25 [...] Tobacco Use History Tobacco Use History - increment manager: Tobacco Use History - increment manager Tobacco Use Smoking Status Former smoker 06/18/25 08:24 Hx Tobacco Use No 06/18/25 08:24 Years Smoking Packs Smoked per Day Smoking Cessation Date was No - quit smoking greater 06/18/25 08:24 within the last 15 years than 15 years ago Hx Smoking Cessation Date Hx Smoking Cessation No 06/18/25 08:24 Counseling Hematologic Medial History Hematologic Hx - increment manager: Hematologic Medical Hx - manager medicaid Hx of Blood Transfusion No 06/18/25 08:24 [...] /Reproductio n History /Reproductiv e History - increment manager: /Reproductiv e Hx- increment manager Hx Now No 06/18/25 08:24 Gestational Age (in weeks): EDC: Hx Hx Para Hx Section SAB No 06/18/25 08:24 PFSH Medical History (Updated 06/18/25 @ 08:31 by [...] ???Type aspir (more content not included)... Normal [facility] Cytology, Body Fluid / CSFon 06-15-2025 CYTOLOGY,BF/CSF SEE PATHOLOGY REPORT Normal [facility] Comment on above: Order Comment: Comme nts: CATH'D URINE FOR CYTOLOGY Result Comment: Spec imen submitted to Anatomical Pathology Department for testing. Performed By: #### L 300.3900 #### [facility] [address] [place], [address] Cytology report of Body flui d Cyto stainOrdered By: Akhil Leslie on 06-13-2025 Cytology report Cyto stain Doc (Body fld) SEE PATHOLOGY REPORT [facility] Comment on above: Specimen submitted t o Anatomical Pathology Department for testing. Discharge Instructionon 05-27 Discharge Instruction [facility] Medical Records Department [address] [place] [address] Instructions for Home/Discharge Instructions 06/13/25 1655 MR#: [id number] Acct: [id number] Name: ALLIE MARIE Rep #: [id number] : 1935 89 From: Akhil Leslie MD [...] Up With: Akhil Leslie MD When: Call [phone] for an appointment Test Results: Test results from this visit will be discussed in further detail at your follow-up appointment, if applicable. Discharge Plan Admission Primary Reason for Your Visit: bleeding from right kidney Attending Provider: Akhil Leslie Primary Care Provider: Angel Juan Instructions Print Language: [place] Discharge Orders/Prescriptions Prescriptions: New ibuprofen 400 mg [...] can be placed): Home, Self Care 06/13/25 2185 Akhil Leslie MD CC: Dr. Angel Juan MD Signed [facility] MR/POSTOP.[facility] 06-13-2025 MR/POSTOP.[facility] Medical Records Department [address] [place] [address] Anesthesia Postop Eval I 06/13/251730 MR#: [id number] Acct: [id number] Name: ALLIE MARIE Rep #: [id number] : 1935 89 From: Bam Pride CRNA PCP: Dr. Angel Juan MD Status:REG SDC Y Race: C Location: [place] [address] Anesthesia: Postop Eval I Current Vital Signs Temperature: 36 F Pulse Rate: 75 Blood Pressure: 96/44 Respiratory Rate: 14 Pulse Ox: 96 Assessment Airway patent: Yes Spontaneous unlabored respirations: Yes nausea: No Vomiting: No Anesthesia Complication: No Fluid Hydration Crystalloid volume administer (ml): 500 Total IV fluid infused: 500 Progress Note Anesthesia document: Postop Eval 1 completed: Yes 06/13/251730 Date Bam Pride CRNA Cosigner Signature: Date CC: Signed Normal [facility] MR/[id number] 06-13-2025 MR/POSTOPAN2 [facility] Medical Records Department [address] [place] [address] Anesthesia Postop Eval II 06/13/251919 MR#: [id number] Acct: [id number] Name: ALLIE MARIE Rep #: [id number] : 1935 89 From: Viet Srinivasan MD PCP: Dr. Angel Juan MD Status:REG SDC Y Race: C Location: [address] Anesthesia Postop Eval I Sum Postop Eval Completion status Anesthesia document: Postop Eval 1 completed: Yes Anesthesia Postop Eval I Summary Anesthesia Postop Eval I Summary: Anesthesia Postop Eval I: Assessment Summary Airway patent Yes 06/13/25 17:31 MAINFRAME PROGRAMMER.JYUN Spontaneous unlabored Yes 06/13/25 17:31 MAINFRAME PROGRAMMER.JYUN respirations Mental status nausea No 06/13/25 17:31 MAINFRAME PROGRAMMER.JYUN Vomiting No 06/13/25 17:31 MAINFRAME PROGRAMMER.JYUN Anesthesia Postop Eval I: Fluid Summary Crystalloid volume administer 500 06/13/25 17:31 MAINFRAME PROGRAMMER.JYUN (ml) Colloids volume administered ( ml) Blood Product volume administered (ml) Total IV fluid infused 500 06/13/25 17:31 MAINFRAME PROGRAMMER.JYUN Anesthesia Postop Eval I: Summary Notes Anesthesia Complication No 06/13/25 17:31 MAINFRAME PROGRAMMER.JYUN Anesthesia Complication Comment: Post-operative progress note Anesthesia: Postop Eval II Evaluation Mental status: Awake and Calm Pain Level: 1 nausea: No Vomiting: No Complications Anesthesia Complication: No 06/13/251920 Date Viet Srinivasan MD Cosigner Signature: Date CC: Signed Normal [facility] Operative Reporton Operative Report [facility] Medical Records Department [address] [place] [address] Operative Report 06/13/25 1723 MR#: [id number] Acct: [id number] Name: ALLIE MARIE Rep #: [id number] : 1935 89 From: Akhil Leslie MD PCP: Dr. Angel Juan MD Status:[facility] Location: [place] [address] Operative Report (Standard) Operative Information Date of Procedure: 06/13/25 Pre-Operative Diagnosis: Bleeding from the right kidney Post-Operative Diagnosis: Mass in the right renal pelvis Surgery/Procedure Performed: Cystoscopy right retrograde pyelogram, right ureteroscopy biopsy of renal pelvic mass urine for cytology conservation science teacher: No Type of Anesthesia: General RN Documented [...] went in the bladder with a 21 Cymraes rigid cystourethroscope the bladder was normal there [...] Prophylaxis: SCD's VTE Pharm Prophylaxis ordered?: No 06/13/251726 Cosigner Signature (if applicable): CC: Dr. Angel Juan MD; Dr. Akhil Leslie MD Signed Normal [facility] Special Stain Group IIon Special Stain Group II ---- -------- Patient Age/Sex Location Account Attending Physician -------- ALLIE MARIE/F [facility] [id number] Dr. Akhil Leslie MD -------- Specimen: [id number] Received: 06/13/25 Status: IRA Rivera Num: [id number] Spec Type: Fluid Subm Dr: Dr. Akhil Leslie MD HEADER OPERATION: Ureteroscopy, retrograde pyelogram PRE-OP DIAGNOSIS: Hemorrhaging from right kidney, right renal pelvic mass TISSUE SUBMITTED: A- Urine for cytology - collected in OR -------- DIAGNOSIS CYTOLOGY A. Urine (cytospin), non-voided: - Atypical cells. COMMENT See report for additional specimen : [id number]. CYTOLOGY STUDY Slides are reviewed. CYTOLOGY GROSS A. Received is 20 ml of pink-cloudy fluid labeled with the patient's name and and designated per the requisition as urine. Submitted for cytology preparation. 06/16/2025 CPT: 39188 Signed (signature on file) Dr. Mamie Monsalve MD 06/18/25 1550 -------- Normal [facility] Comment on above: Performed By: #### L 501.9520 #### [facility] [place], [address] Surgery Specimen Level Joan 06-13-2025 Surgery Specimen Level IV -------- Patient Age/Sex Location Account Attending Physician -------- ALLIE MARIE 89/F [facility] [place] [id number] Dr. Akhil Leslie MD -------- Specimen: [id number] Received: 06/13/25 Status: IRA Rivera Num: [id number] Spec Type: Mass Subm Dr: Dr. Akhil [...] identified. COMMENT See report for additional specimen: [id number] Selected slides/images were reviewed in intradepartmental consultation by Dr Julee Lancaster ( pathology division, [facility]). MICROSCOPIC DESCRIPTION Slides are reviewed. GROSS [...] as BX RT renal pelvic mass (SC). [place] 06/16/2025 [facility]:[id number] -------- Patient Age/Sex Location Account Attending Physician -------- ALLIE MARIE 89/F [facility] [id number] Dr. Akhil Leslie MD -------- Signed (signature on file) Dr. Mamie Monsalve MD 06/23/25 0919 -------- Normal [facility] Comment on above: Performed By: #### P SUIV ####[facility] [address] [place], [place], [id number] Abdomen/Pelvis without Conto n 06-12-2025 Abdomen/Pelvis without Cont [facility] Imaging Services [address] [place], [place] [address] Abdomen/Pelvis without Cont MR#: [id number] Acct: [id number] Name: ALLIE MARIE Rep #: [id number] : 1935 F 89 From: Pravin root MD PCP: Dr. May Avitia MD Status: [facility] Study: Abdomen/Pelvis without Cont Date of Exam: 05/27 06/20 Exam# [id number] Ordering Dr: Akhil Leslie MD PROCEDURE: ABDOMEN/PELVIS [...] or ureteral calcification is seen. Reading Location: [place] [address] CC: Dr. May Avitia MD; Dr. Akhil Leslie MD Enforcement Manager: Signed [facility] MR/PAT.E[facility] 06-12-2025 MR/PAT.[facility] Medical Records Department [address] [place] [address] PAT - Anesthesia 06/12/25 1635 MR#: [id number] Acct: [id number] Name: ALLIE MARIE Rep #: [id number] : 1935 89 From: Jean Paul Gross MD PCP: Dr. May Avitia MD Status:PRE [facility] Y Race: C Location: [facility] Pre-Assessment Diagnosis/Proposed Procedure Planned Operative Procedure(s): RIGHT URETEROSCOPY BIOPSY STENT Anesthesia History Anesthesia History - increment manager: Anesthesia History - increment manager Hx Hospitalization Yes: SYNCOPE/SEVERE 06/12/25 16:21 DEHYDRATION [...] take am of surgery PONV PONV - increment manager: PONV - increment manager Female Yes 06/12/25 16:21 HX of Motion [...] 04/14/25 10:17 Respiratory Assessment Respiratory Assessment - increment manager: Respiratory Tract Infection Hx - increment manager Hx Respiratory Tract Infection No 06/12/25 16:21 STOP Sleep Apnea STOP Sleep Apnea - increment manager: STOP Sleep Apnea - increment manager Hx Hypertension Yes: CONTROLLED WITH MEDS 06/12/25 [...] Tobacco Use History Tobacco Use History - increment manager: Tobacco Use History - increment manager Tobacco Use Smoking Status Former smoker 06/12/25 16:21 Hx Tobacco Use No 06/12/25 16:21 Years Smoking Packs Smoked per Day Smoking Cessation Date was No - quit smoking greater 06/12/25 16:21 within the last 15 years than 15 years ago Hx Smoking Cessation Date Hx Smoking Cessation No 06/12/25 16:21 Counseling Hematologic Medial History Hematologic Hx - increment manager: Hematologic Medical Hx - manager medicaid Hx of Blood Transfusion No 06/12/25 16:21 [...] /Reproductio n History /Reproductiv e History - increment manager: /Reproductiv e Hx- increment manager Hx Now No 06/12/25 16:21 Gestational Age (in weeks): EDC: Hx Hx Para Hx Section SAB No 06/12/25 16:21 [facility] Medical History (Updated 06/12/25 @ 16:31 by [...] mg chew (more content not included)... Normal [facility] TSH DL <= 0.005 mIU/L QnOrde red By: Boubacar Brysonorrow on 05-28-2025 TSH Qn 6.240 uIU/mL High 0.300-4.200 [facility] Thyroid Stim Hormone (TSH)on 07-02-2025 TSH 6.240 uIU/mL High 0.300-4.200 [facility] Comment on above: Order Comment: Order Date: 05/28/25 Order Info: [id number] - TSH Performed By: #### L 501.9520 #### [facility] Laboratory [address] [place], [place], [id number] Urine Cultureon 04-15-2025 URC Escherichia coli [place] Count >100,000 Escherichia coli: REACTION Ampicillin Islt [...] TMP SMX Islt KIRAN <=20 S Normal [facility] Comment on above: Performed By: #### M 100.2206 ####[facility] [address] [place], [place], [id number] Absolute lymphocyte countOrd ered By: Lilia Vaishali on 04-14-2025 Lymphocytes Auto (Unsp spec) [#/Vol] 2.06 10*3/uL 0.83-4.51 [facility] Absolute neutrophil countOrd ered By: Vaishali on 04-14-2025 Neutrophils (Bld) [#/Vol] 4.0 10*3/uL 2.0-7.7 [facility] Anion gap in Serum or Plasma Ordered By: Vaishali on 04-14-2025 Anion gap [Moles/Vol] 8 mmol/L 5-15 [facility] Automated blood erythrocyte countOrdered By: Vaishali on 04-14-2025 RBC (Bld) [#/Vol] 3.03 10*6/uL Low 4.2-5.4 [facility] Comment on above: Performed By: #### L 501.5200 #### [facility] [address] [place], [place], [address] Automated blood hematocrit ( percentage)Ordered By: Lilia Tom on 04-14-2025 Hematocrit (Bld) [Volume fraction] 28.5 % Low 37-47 [facility] Comment on above: Performed By: #### L 110.5200 #### [facility] [address] [place], [address] Automated lymphocyte count a s percentage of total leukocytesOrdered By: Lilia Vaishali on 04-14-2025 Lymphocytes/100 WBC Auto (Unsp spec) 28.9 % 19- [facility] BUN/creatinine ratioOrdered By: [facility] Vaishali on 04-14-2025 Urea nitrogen/Creatinine [Mass ratio] 18.5 mg/mg 10-20 [facility] Basophil percentageOrdered B y: Lilia Vaishali on 04-14-2025 Basophils/100 WBC (Bld) 0.6 % Normal 0-1 [facility] Comment on above: Performed By: #### L 501.5200 #### [facility] [address] [place], [address] Bilirubin, totalOrdered By: Lilia Tom on 04-14-2025 Bilirubin [Mass/Vol] 0.47 mg/dL 0.00-1.30 [facility] CBC W/Diff, Automatedon 03-27 Absolute Lymph 2.06 X10 3/uL Normal 0.83-4.51 [facility] Comment on above: Performed By: #### L [id number] #### [facility] [address] [place], [address] Absolute Neut 4.0 X10 3/uL Normal 2.0-7.7 [facility] Comment on above: Performed By: #### L 501.5200 #### [facility] [address] [place], [address] IG% 0.600 Normal 0.0-0.9 [facility] Comment on above: Result Comment: IG% - Immature Granulocytes (promyelocytes, myelocytes and metamyelocytes) > 1% indicates that a LEFT SHIFT is Present. Performed By: #### L 501.5200 #### [facility] [address] [place], [address] Lymphocytes/100 WBC (Bld) 28.9 % Normal 19-41 [facility] Comment on above: Performed By: #### L 501.5200 #### [facility] [address] [place], [address] Nucleated RBC (Bld) [#/Vol] 0 10*3/uL Normal 0-5 [facility] Comment on above: Performed By: #### L 501.5200 #### [facility] [address] [place], [address] RDW SD 45.0 fl High 35.1-43.9 [facility] Comment on above: Performed By: #### L 501.5200 #### [facility] [address] [place], [address] Calculated very low density lipoprotein (VLDL) cholesterol measurementOrdered By: Lilia Tom on 04-14-2025 Calculated very low density lipoprotein (VLDL) cholesterol measurement 23 mg/dL 5-40 [facility] Carbon dioxide, total [Moles /volume] in Central venous bloodOrdered By: Lilia Tom on 04-14-2025 CO2 [Moles/Vol] 17.9 mmol/L Low 21.0-32.0 [facility] Chloride assayOrdered By: Ginna Tom on 04-14-2025 Chloride [Moles/Vol] 116 mmol/L High 98-108 [facility] Comprehensive Metabolic Prof ilon 04-14-2025 Albumin [Mass/Vol] 3.1 g/dL Low 3.4-4.8 [facility] Comment on above: Performed By: #### L 501.5200 #### [facility] [address] [place], [address] Albumin/Globulin [Mass ratio] 1.6 {ratio} Normal 0.9-2.4 [facility] Comment on above: Performed By: #### L 501.5200 #### [facility] [address] [place], [address] ALK PHOS 42 U/L Normal 35-104 [facility] Comment on above: Performed By: #### L 501.5200 #### [facility] [address] [place], [address] ALT [Catalytic activity/Vol] 102 U/L High <=34 [facility] Comment on above: Performed By: #### L 501.5200 #### [facility] [address] [place], [address] AST [Catalytic activity/Vol] 138 U/L High <=31 [facility] Comment on above: Performed By: #### L 501.0 #### [facility] [address] [place], [address] Bilirubin [Mass/Vol] 0.47 mg/dL Normal 0.00-1.30 [facility] Comment on above: Performed By: #### L 501.5200 #### [facility] [address] [place], [address] BUN/CRE 18.5 RATIO Normal 10-20 [facility] Comment on above: Performed By: #### L .5200 #### [facility] [address] [place], [address] Calcium [Mass/Vol] 8.6 mg/dL Normal 7.6-11.0 [facility] Comment on above: Performed By: #### L 501.5200 #### [facility] [address] [place], [address] Chloride [Moles/Vol] 116 mmol/L High 98-108 [facility] Comment on above: Performed By: #### L 501.5200 #### [facility] [address] [place], [address] CO2 [Moles/Vol] 17.9 mmol/L Low 21.0-32.0 [facility] Comment on above: Performed By: #### L 968.5200 #### [facility] [address] [place], [address] Creatinine [Mass/Vol] 1.36 mg/dL High 0.70-1.20 [facility] Comment on above: Performed By: #### L 501.5200 #### [facility] [address] [place], [address] ECRCL 23.05 ml/min Low 50-250 [facility] Comment on above: Performed By: #### L 959.5200 #### [facility] [address] [place], [address] GAP 8 Normal 5-15 [facility] Comment on above: Performed By: #### L 501.5200 #### [facility] [address] [place], [address] GFR/1.73 sq M.predicted among non-blacks MDRD (S/P/Bld) [Vol rate/Area] 38 mL/min/{1.73_m2} Low >60 [facility] Comment on above: Result Comment: mL/m in/1.73m2 CKD-EPI Creatinine Equation (2020) Performed By: #### L 501.5200 #### [facility] [address] [place], [address] Globulin (S) [Mass/Vol] 2.0 g/dL Low 2.2-4.2 [facility] Comment on above: Performed By: #### L 808.5200 #### [facility] [address] [place], [address] Glucose [Mass/Vol] 91 mg/dL Normal 70-99 [facility] Comment on above: Performed By: #### L 922.5200 #### [facility] [address] [place], [address] Potassium [Moles/Vol] 4.3 mmol/L Normal 3.3-5.1 [facility] Comment on above: Performed By: #### L 501.5200 #### [facility] [address] [place], [address] Sodium [Moles/Vol] 142 mmol/L Normal 133-145 [facility] Comment on above: Performed By: #### L 501.5200 #### [facility] [address] [place] [place], [address] T PROT 5.1 g/dL Low 5.9-8.4 [facility] Comment on above: Performed By: #### L 501.5200 #### [facility] [address] [place], [address] Urea nitrogen [Mass/Vol] 25 mg/dL High -19 [facility] Comment on above: Performed By: #### L 501.5200 #### [facility] [address] [place], [address] Discharge Instructionon 05- Discharge Instruction [facility] Medical Records Department [address] [place] [address] Instructions for Home/Discharge Instructions 04/14/25 1536 MR#: [id number] Acct: [id number] Name: ALLIE MARIE Rep #: [id number] : 1935 89 From: Ken Parker DO [...] Qty: 90 3RF Referrals / Follow Up: Mya Avitia MD [Primary Care Provider] - Within [...] Dr. Lilia Tom MD * Signed Normal [facility] Echocardiogram study reportO rdered By: Philip Martinez on 04-14-2025 Study report [facility] Cardiovascular Services [address] [place] [address] Echo Complete 04/14/25 1520 MR#: [id number] Acct: [id number] Name: ALLIE MARIE Rep #:[id number] : 1935 89 From: Philip Lan Attending Dr: Dr. Ken Parker DO Status: ADM IN Ordering Dr: Lilia Tom MD Date: 04/13/25 Location: PCU Sex: F C Admitted: 04/13/25 Reason For [...] ~ Date Dictated: 04/14/25 1520 Date Transcribed: 04/14/251641 Enforcement Manager: Signed [facility] Work Phone: Electrocardiogram reportOrde red By: Philip Martinez on 04-14-2025 EKG study [facility] Cardiovascular Services [address] [place] [address] 12 Lead EKG 04/13/25 1621 MR#: [id number] Acct: [id number] Name: ALLIE MARIE Rep #:[id number] : 1935 89 From: Philip Martinez MD Attending Dr: Dr. Ken Parker DO Status: ADM IN Ordering Dr: Ant Vale ate: 04/13/25 Location: [facility] Sex: F C Admitted: 04/13/25 Test Reason [...] Abnormal ECG Confirmed by PHILIP MARTINEZ MD ([id number]), website/blog editor AYALA PARSONS ([id number]) on 04/14/2025 9:27:32 AM Referred By: Confirmed By: PHILIP MARTINEZ MD 04/14/25 0927 Date _ Philip Martinez MD CC: Dr. May Avitia MD; Dr. Ant Vale DO; Dr. Ken Parker DO ~ Signed [facility] Work Phone: [phone] Eosinophil percentageOrdered By: Lilia Tom on 04-14-2025 Eosinophils/100 WBC (Bld) 2.5 % Normal 0-5 [facility] Comment on above: Performed By: #### L 356.5200 #### [facility] Laboratory [address] [place], [place], [id number] Erythrocyte distribution wid th ratioOrdered By: Lilia White on 04-14-2025 Erythrocyte distribution width (RBC) [Ratio] 13.1 % Normal 11.6-14.6 [facility] Comment on above: Performed By: #### L 782.5205 #### [facility] Laboratory [address] [place], [place], [phone] ([phone]) Erythrocyte distribution wid th standard deviationOrdered By: Lilia Vaishali on 04-14-2025 Erythrocyte distribution width (RBC) [Ratio] 45.0 fl High 35.1-43.9 [facility] Glomerular filtration rate ( GFR) estimation/1.73 sq m using serum, plasma, or whole bOrdered By: Lilia Tom on 04-14-2025 GFR/1.73 sq M.predicted among non-blacks MDRD (S/P/Bld) [Vol rate/Area] 38 mL/min/{1.73_m2} Low >60 [facility] Comment on above: mL/min/1.73m2 CKD-EP I Creatinine Equation (2020) Hemoglobin measurementOrdere d By: Lilia Tom on 04-14-2025 Hemoglobin (Bld) [Mass/Vol] 9.4 g/dL Low 12.0-15.0 [facility] Comment on above: Performed By: #### L 568.5200 #### [facility] Laboratory [address] [place], [place], [phone] (892) Immature granulocytes/100 WB C Auto (Bld)Ordered By: Lilia Tom on 04-14-2025 Immature granulocytes/100 WBC (Bld) 0.600 % 0.0-0.9 [facility] Comment on above: IG% - Immature Granu locytes (promyelocytes, myelocytes and metamyelocytes) > 1% indicates that a LEFT SHIFT is Present. LDL calc ser/plasOrdered By: Lilia Tom on 04-14-2025 Cholesterol in LDL [Mass/Vol] 33 mg/dL [facility] Comment on above: Bsideuidpx=786-364 m g/dL & Higher Thrv=218 mg/dL or greater Laboratory - Chemistry and C hemistry - challengeOrdered By: Lilia Vaishali on 04-14-2025 AST [Catalytic activity/Vol] 138 U/L High <32 [facility] Lipid Profileon 04-14-2025 CHOL:HDL 3.01 Normal [facility] Comment on above: Performed By: #### L 501.5200 #### [facility] [address] [place], [place], [phone] ([phone]) Cholesterol [Mass/Vol] 84 mg/dL Normal <=200 [facility] Comment on above: Result Comment: Chol esterol level, Desirable <200 mg/dL Borderline high cholesterol 200-239 mg/dL High cholesterol >=240 mg/dL Recommendations of the NCEP Adult Treatment Panel for the following risk-cutoff thresholds for the [place] population. Performed By: #### L 501.5200 #### [facility] [address] [place], [place], [id number] Cholesterol in HDL [Mass/Vol] 28 mg/dL Low [facility] Comment on above: Result Comment: Jaci onal Cholesterol Education Program (NCEP) guidelines: <40 mg/dL: Low HDL-cholesterol (major risk factor for CHD) >= 60 mg/dL: High HDL-cholesterol (negative risk factor for CHD) HDL-cholesterol is affected by a number of factors, e.g. smoking, exercise, hormones, sex and age. Performed By: #### L 501.5200 #### [facility] [address] [place], [place], [phone] (884) Cholesterol in LDL [Mass/Vol] 33 mg/dL Normal [facility] Comment on above: Result Comment: Bord lytxno=622-140 mg/dL Higher Nxkx=914 mg/dL or greater Performed By: #### L [id number] #### [facility] [address] [place], [address] Cholesterol in VLDL [Mass/Vol] 23 mg/dL Normal 5-40 [facility] Comment on above: Performed By: #### L 501.5200 #### [facility] [address] [place] [place], [address] Triglyceride [Mass/Vol] 115 mg/dL Normal [facility] Comment on above: Result Comment: The drugs N-Acetylcysteine and Metamizole may falsely depress this assay. Normal range: <150 mg/dL Borderline High: 150-199 mg/dL High: 200-499 mg/dL Very High: >500 mg/dL Performed By: #### L 676.5200 #### [facility] [address] [place] [place], [address] MCV (mean corpuscular volume ) determinationOrdered By: Lilia Tom on 04-14-2025 MCV (RBC) [Entitic vol] 94.1 fL Normal 81-99 [facility] Comment on above: Performed By: #### L 695.5200 #### [facility] [address] [place], [address] Mean corpuscular hemoglobin (MCH) determinationOrdered By: Lilia Tom on 04-14-2025 MCH (RBC) [Entitic mass] 31.0 pg Normal 27.0-32.0 [facility] Comment on above: Performed By: #### L 442.5200 #### [facility] [address] [place] [place], [address] Mean corpuscular hemoglobin concentration (MCHC) determinationOrdered By: Lilia Tom on 04-14-2025 MCHC (RBC) [Mass/Vol] 33.0 g/dL Normal 32-36 [facility] Comment on above: Performed By: #### L 501.5200 #### [facility] [address] [place], [address] Mean platelet volume determi nationOrdered By: Lilia Tom on 04-14-2025 Platelet mean volume (Bld) [Entitic vol] 9.5 fL Normal 6.2-12.0 [facility] Comment on above: Performed By: #### L 501.5200 #### [facility] [address] [place], [address] Monocyte percentageOrdered B y: White on 04-14-2025 Monocytes/100 WBC (Bld) 11.1 % High 0-10 [facility] Comment on above: Performed By: #### L 501.5200 #### [facility] [address] [place] [id number] Neutrophil percentageOrdered By: White on 04-14-2025 Neutrophils/100 WBC (Bld) 56.3 % Normal 47-70 [facility] Comment on above: Performed By: #### L 501.5200 #### [facility] [address] [place], [address] Nucleated red blood cell per centageOrdered By: Lilia Vaishali on 04-14-2025 Nucleated RBC/100 WBC (Bld) [Ratio] 0 % 0-5 [facility] Platelet countOrdered By: Ginna Tom on 04-14-2025 Platelets (Bld) [#/Vol] 136 10*3/uL Low 150-450 [facility] Comment on above: Performed By: #### L 501.5200 #### [facility] [address] [place], [address] Potassium measurement (mass/ volume)Ordered By: Lilia Tom on 04-14-2025 Potassium (Unsp spec) [Mass/Vol] 4.3 mmol/L 3.3-5.1 [facility] Screening total cholesterol/ high density lipoprotein (HDL) cholesterol ratioOrdered By: Lilia Tom on 04-14-2025 Cholesterol.total/Gin sterol in HDL [Mass ratio] 3.01 {ratio} [facility] Serum creatinine measurement (mass/volume)Ordered By: Lilia Tom on 04-14-2025 Creatinine [Mass/Vol] 1.36 mg/dL High 0.70-1.20 [facility] Serum globulin measurementOr dered By: Lilia Tom on 04-14-2025 Globulin (S) [Mass/Vol] 2.0 g/dL Low 2.2-4.2 [facility] Serum glucose measurement (m ass/volume)Ordered By: Lilia Tom on 04-14-2025 Glucose [Mass/Vol] 91 mg/dL 70-99 [facility] Serum or plasma alanine mckeon otransferase (ALT) measurementOrdered By: Lilia Vaishali on 04-14-2025 ALT [Catalytic activity/Vol] 102 U/L High <35 [facility] Serum or plasma albumin jayy urement (mass/volume)Ordered By: Lilia Tom on 04-14-2025 Albumin [Mass/Vol] 3.1 g/dL Low 3.4-4.8 [facility] Serum or plasma albumin/glob ulin mass ratioOrdered By: Lilia Vaishali on 04-14-2025 Albumin/Globulin [Mass ratio] 1.6 {ratio} 0.9-2.4 [facility] Serum or plasma alkaline kinga sphatase measurementOrdered By: Lilia Vaishali 04-14-2025 ALP [Catalytic activity/Vol] 42 U/L 35-104 [facility] Serum or plasma calcium jayy urement (mass/volume)Ordered By: Lilia Tom 04-14-2025 Calcium [Mass/Vol] 8.6 mg/dL 7.6-11.0 [facility] Serum or plasma cholesterol in HDL measurement (mass/volume)Ordered By: Lilia Vaishali on 04-14-2025 Cholesterol in HDL [Mass/Vol] 28 mg/dL Low >40 [facility] Comment on above: National Cholesterol Education Program (NCEP) guidelines:<40 mg/dL: Low HDL-cholesterol (major risk factor for CHD)>= 60 mg/dL: High HDL-cholesterol (negative risk factor for CHD)HDL-cholesterol is affected by a number of factors, e.g. smoking, exercise, hormones, sex and age. Serum or plasma cholesterol measurement (mass/volume)Ordered By: Lilia Tom on 04-14-2025 Cholesterol [Mass/Vol] 84 mg/dL <201 [facility] Comment on above: Cholesterol level, D esirable <200 mg/dLBorderline high cholesterol 200-239 mg/dLHigh cholesterol >=240 mg/dLRecommendations of the NCEP Adult Treatment Panel for the following risk-cutoff thresholds for the [place] population. Serum or plasma urea nitroge n measurement (mass/volume)Ordered By: Lilia Tom on 04-14-2025 Urea nitrogen [Mass/Vol] 25 mg/dL High - [facility] Sodium levelOrdered By: Yulia mn Vaishali on 04-14-2025 Sodium [Moles/Vol] 142 mmol/L 133-145 [facility] Total proteinOrdered By: Aut umn Vaishali on 04-14-2025 Protein [Mass/Vol] 5.1 g/dL Low 5.9-8.4 [facility] Triglycerides measurementOrd ered By: Lilia Tom on 04-14-2025 Triglyceride [Mass/Vol] 115 mg/dL <199 [facility] Comment on above: The drugs N-Acetylcy steine and Metamizole may falsely depress this assay. Normal range: <150 mg/dLBorderline High: 150-199 mg/dLHigh: 200-499 mg/dLVery High: >500 mg/dL White blood cell (WBC) count Ordered By: Lilia Tom on 04-14-2025 WBC (Bld) [#/Vol] 7.1 10*3/uL Normal 4.4-11.0 [facility] Comment on above: Performed By: #### L 501.5200 #### [facility] [address] [place], [address] 12 Lead EKGon 04-13-2025 12 Lead EKG [facility] Cardiovascular Services [address] [place] [address] 12 Lead EKG 04/13/25 1621 MR#: [id number] Acct: [id number] Name: ALLIE MARIE Rep #: [id number] : 1935 89 From: Philip Martinez MD Attending Dr: Dr. Ken Parker DO Status: A DM IN Ordering Dr: Ant Vale DO Date: 5 Location: [facility] Sex: F C Admitted: 04/13/25 Test Reason [...] Abnormal ECG Confirmed by JUAN DAILY, PHILIP ([id number]), website/blog editor AYALA PARSONS ([id number]) on 04/14/2025 9:27:32 AM Referred By: Confirmed By: PHILIP MARTINEZ MD 04/14/25 0927 Date Philip Martinez MD CC: Dr. May Avitia MD; Dr. Ant Vale DO; Dr. Ken Parker DO Signed Normal [facility] Absolute lymphocyte countOrd ered By: Miladis Sánchez on 04-13-2025 Lymphocytes Auto (Unsp spec) [#/Vol] 1.37 10*3/uL 0.83-4.51 [facility] Absolute neutrophil countOrd ered By: Miladis Sánchez on 04-13-2025 Neutrophils (Bld) [#/Vol] 5.2 10*3/uL 2.0-7.7 [facility] Anion gap in Serum or Plasma Ordered By: Miladis Sánchez on 04-13-2025 Anion gap [Moles/Vol] 12 mmol/L 5- [facility] Automated lymphocyte count a s percentage of total leukocytesOrdered By: Miladis Sánchez on 04-13-2025 Lymphocytes/100 WBC Auto (Unsp spec) 18.7 % Low 19-41 [facility] BUN/creatinine ratioOrdered By: Miladis Sánchez on 04-13-2025 Urea nitrogen/Creatinine [Mass ratio] 16.6 mg/mg 10- [facility] Basophil percentageOrdered B y: Miladis Sánchez on 04-13-2025 Basophils/100 WBC (Bld) 0.7 % 0-1 [facility] Bilirubin Test strip Ql (U)O rdered By: Miladis Sánchez on 04-13-2025 Bilirubin Ql (U) Negative Negative [facility] Bilirubin, totalOrdered By: Miladis Sánchez on 04-13-2025 Bilirubin [Mass/Vol] 0.86 mg/dL 0.00-1.30 [facility] CBC W/Diff, Automatedon 03-27 Absolute Lymph 1.37 X10 3/uL Normal 0.83-4.51 [facility] Comment on above: Performed By: #### L 501.9520 #### [facility] [address] [place], [address] Absolute Neut 5.2 X10 3/uL Normal 2.0-7.7 [facility] Comment on above: Performed By: #### L [id number] #### [facility] [address] [place], [address] Basophils/100 WBC (Bld) 0.7 % Normal 0-1 [facility] Comment on above: Performed By: #### L [id number] #### [facility] [address] [place], [address] Eosinophils/100 WBC (Bld) 1.8 % Normal 0-5 [facility] Comment on above: Performed By: #### L 501.9520 #### [facility] [address] [place], [address] Erythrocyte distribution width (RBC) [Ratio] 13.2 % Normal 11.6-14.6 [facility] Comment on above: Performed By: #### L 501.9520 #### [facility] [address] [place], [address] Hematocrit (Bld) [Volume fraction] 33.4 % Low 37-47 [facility] Comment on above: Performed By: #### L 352.9513 #### [facility] [address] [place], [address] Hemoglobin (Bld) [Mass/Vol] 11.2 g/dL Low 12.0-15.0 [facility] Comment on above: Performed By: #### L 501.9520 #### [facility] [address] [place], [address] IG% 0.400 Normal 0.0-0.9 [facility] Comment on above: Result Comment: IG% - Immature Granulocytes (promyelocytes, myelocytes and metamyelocytes) > 1% indicates that a LEFT SHIFT is Present. Performed By: #### L 501.9520 #### [facility] [address] [place], [address] Lymphocytes/100 WBC (Bld) 18.7 % Low 19-41 [facility] Comment on above: Performed By: #### L 885.9520 #### [facility] [address] [place], [address] MCH (RBC) [Entitic mass] 31.3 pg Normal 27.0-32.0 [facility] Comment on above: Performed By: #### L 501.20 #### [facility] [address] [place], [address] MCHC (RBC) [Mass/Vol] 33.5 g/dL Normal 32-36 [facility] Comment on above: Performed By: #### L [id number] #### [facility] [address] [place], [address] MCV (RBC) [Entitic vol] 93.3 fL Normal 81-99 [facility] Comment on above: Performed By: #### L 501.9520 #### [facility] [address] [place], [address] Monocytes/100 WBC (Bld) 8.1 % Normal 0-10 [facility] Comment on above: Performed By: #### L 501.9520 #### [facility] [address] [place], [address] Neutrophils/100 WBC (Bld) 70.3 % High 47-70 [facility] Comment on above: Performed By: #### L 501.9519 #### [facility] [address] [place], [address] Nucleated RBC (Bld) [#/Vol] 0 10*3/uL Normal 0-5 [facility] Comment on above: Performed By: #### L 501.9520 #### [facility] [address] [place], [address] Platelet mean volume (Bld) [Entitic vol] 9.8 fL Normal 6.2-12.0 [facility] Comment on above: Performed By: #### L 501.9520 #### [facility] [address] [place], [address] Platelets (Bld) [#/Vol] 166 10*3/uL Normal 150-450 [facility] Comment on above: Performed By: #### L 501.9520 #### [facility] [address] [place], [address] RBC (Bld) [#/Vol] 3.58 10*6/uL Low 4.2-5.4 [facility] Comment on above: Performed By: #### L 501.9520 #### [facility] [address] [place], [address] RDW SD 45.0 fl High 35.1-43.9 [facility] Comment on above: Performed By: #### L 501.9520 #### [facility] [address] [place], [address] WBC (Bld) [#/Vol] 7.3 10*3/uL Normal 4.4-11.0 [facility] Comment on above: Performed By: #### L 501.9520 #### [facility] [address] [place], [place], [address] Carbon dioxide, total [Moles /volume] in Central venous bloodOrdered By: Miladis Sánchez on 04-13-2025 CO2 [Moles/Vol] 20.7 mmol/L Low 21.0-32.0 [facility] Chest PA and Lateralon 04-13 Chest PA and Lateral [facility] Imaging Services [address] [place] [address] Chest PA and Lateral MR#: [id number] Acct: [id number] Name: ALLIE MARIE Rep #: [id number] : 1935 F 89 From: Ken Juares MD PCP: Dr. May Avitia MD Status: REG ER Study: Chest PA and Lateral Date of Exam: 04/13/25 Exam# [id number] Ordering Dr: Miladis Sánchez EXAM: XR Chest, 2 Views CLINICAL INDICATION: WEAKNESS TECHNIQUE: Frontal and lateral views of the chest. COMPARISON: No relevant prior studies available. FINDINGS: LUNGS AND PLEURAL SPACES: Unremarkable. No consolidation. No pneumothorax. HEART: Unremarkable. No cardiomegaly. MEDIASTINUM: Unremarkable. Normal mediastinal contour. BONES/JOINTS: Unremarkable. No acute fracture. RAD/Chest PA and Lateral IMPRESSION: No acute cardiopulmonary process. Reading Location: [id number] CC: Dr. May Avitia MD; PIYUSH Sapp Enforcement Manager: Signed Normal [facility] Chloride assayOrdered By: Charmaine Sánchez on 04-13-2025 Chloride [Moles/Vol] 110 mmol/L High 98-108 [facility] Comprehensive Metabolic Prof ilon 04-13-2025 Albumin [Mass/Vol] 3.8 g/dL Normal 3.4-4.8 [facility] Comment on above: Performed By: #### L 501.5200 #### [facility] [address] [place], [address] Albumin/Globulin [Mass ratio] 1.6 {ratio} Normal 0.9-2.4 [facility] Comment on above: Performed By: #### L 501.5200 #### [facility] [address] [place], [address] ALK PHOS 53 U/L Normal 35-104 [facility] Comment on above: Performed By: #### L 501.5200 #### [facility] [address] [place], [address] ALT [Catalytic activity/Vol] 127 U/L High <=34 [facility] Comment on above: Performed By: #### L 501.5200 #### [facility] [address] [place], [address] AST [Catalytic activity/Vol] 170 U/L High <=31 [facility] Comment on above: Performed By: #### L 501.5200 #### [facility] [address] [place], [address] Bilirubin [Mass/Vol] 0.86 mg/dL Normal 0.00-1.30 [facility] Comment on above: Performed By: #### L 501.5200 #### [facility] [address] [place], [address] BUN/CRE 16.6 RATIO Normal 10-20 [facility] Comment on above: Performed By: #### L 501.5200 #### [facility] [address] [place], [address] Calcium [Mass/Vol] 9.5 mg/dL Normal 7.6-11.0 [facility] Comment on above: Performed By: #### L 501.5200 #### [facility] [address] [place], [address] Chloride [Moles/Vol] 110 mmol/L High 98-108 [facility] Comment on above: Performed By: #### L 501.5200 #### [facility] [address] [place], [address] CO2 [Moles/Vol] 20.7 mmol/L Low 21.0-32.0 [facility] Comment on above: Performed By: #### L 501.5200 #### [facility] [address] [place], [address] Creatinine [Mass/Vol] 1.61 mg/dL High 0.70-1.20 [facility] Comment on above: Performed By: #### L 501.5200 #### [facility] [address] [place], [address] ECRCL 19.47 ml/min Low 50-250 [facility] Comment on above: Performed By: #### L 501.5200 #### [facility] [address] [place], [address] GAP 12 Normal 5-15 [facility] Comment on above: Performed By: #### L 501.5200 #### [facility] [address] [place], [address] GFR/1.73 sq M.predicted among non-blacks MDRD (S/P/Bld) [Vol rate/Area] 31 mL/min/{1.73_m2} Low >60 [facility] Comment on above: Result Comment: mL/m in/1.73m2 CKD-EPI Creatinine Equation (2020) Performed By: #### L 501.5200 #### [facility] [address] [place], [address] Globulin (S) [Mass/Vol] 2.4 g/dL Normal 2.2-4.2 [facility] Comment on above: Performed By: #### L 501.5200 #### [facility] [address] [place], [address] Glucose [Mass/Vol] 165 mg/dL High 70-99 [facility] Comment on above: Performed By: #### L 501.5200 #### [facility] [address] [place], [address] Potassium [Moles/Vol] 3.9 mmol/L Normal 3.3-5.1 [facility] Comment on above: Performed By: #### L 501.5200 #### [facility] [address] [place], [address] Sodium [Moles/Vol] 142 mmol/L Normal 133-145 [facility] Comment on above: Performed By: #### L 501.5200 #### [facility] [address] [place], [address] T PROT 6.2 g/dL Normal 5.9-8.4 [facility] Comment on above: Performed By: #### L 501.5200 #### [facility] [address] [place], [address] Urea nitrogen [Mass/Vol] 27 mg/dL High 4-19 [facility] Comment on above: Performed By: #### L 501.5200 #### [facility] [address] [place], [address] Echo Completeon 04-13-2025 Echo Complete [facility] Cardiovascular Services [address] [place] [address] Echo Complete 04/14/25 1520 MR#: [id number] Acct: [id number] Name: ALLIE MARIE Rep #: [id number] : 1935 89 From: Philip Martinez MD Attending Dr: Dr. Ken Parker, DO Status: A DM IN Ordering Dr: Lilia Tom MD Date: 04/13/25 Location: [facility] Sex: F C Admitted: 04/13/25 Reason For [...] Dictated: 04/14/25 1520 Date Transcribed: 04/14/25 164 Enforcement Manager: Signed Normal [facility] Emergency Department Summary on 04-13-2025 Emergency Department Summary [facility] Medical Records Department [address] [place] [address] Emergency Department Summary 04/13/25 MR#: [id number] Acct: [id number] Name: ALLIE MARIE Rep #: [id number] : 1935 89 From: Miladis PICKETT PCP: Dr. May Avitia MD Status:ADM IN Location: [address] History of Present Illness Chief Complaint: [...] a PMH of CVA, HTN, and HLD. [facility] Medical History Essential (primary) hypertension Stenosis of [...] (Wasp Venom) Allergy Anaphylaxis Verified 04/13/25 14:28 Tcrpfdc-WJF-KpG Reductase AdvReac muscle Verified 04/13/25 21:07 Inhibitor (Djnpekr-Jof-Xjy weakness Reductase Inhibitor) tramadol AdvReac Other Verified [...] Pattern Bl (more content not included)... Normal [facility] Eosinophil percentageOrdered By: Miladis Sánchez on 04-13-2025 Eosinophils/100 WBC (Bld) 1.8 % 0-5 [facility] Erythrocyte distribution wid th ratioOrdered By: Miladis Sánchez on 04-13-2025 Erythrocyte distribution width (RBC) [Ratio] 13.2 % 11.6-14.6 [facility] Erythrocyte distribution wid th standard deviationOrdered By: Miladis Sánchez on 04-13-2025 Erythrocyte distribution width (RBC) [Ratio] 45.0 fl High 35.1-43.9 [facility] Free T3on 04-13-2025 Free T3 [Mass/Vol] 1.6 pg/mL Low 2.18-3.98 [facility] Comment on above: Performed By: #### L 501.5200 #### [facility] [address] [place], [address] Free [id number] By: Miladis Sánchez on 04-13-2025 Free T3 [Mass/Vol] 1.6 pg/mL Low 2.18-3.98 [facility] Glomerular filtration rate ( GFR) estimation/1.73 sq m using serum, plasma, or whole bOrdered By: Miladsi Sánchez on 04-13-2025 GFR/1.73 sq M.predicted among non-blacks MDRD (S/P/Bld) [Vol rate/Area] 31 mL/min/{1.73_m2} Low >60 [facility] Comment on above: mL/min/1.73m2 CKD-EP I Creatinine Equation (2020) H AND P Exam - [facility] 04-13-2025 H&P Exam - Hospitalist [facility] Medical Records Department [address] [facility] [place] [address] H P Exam - Hospitalist 04/13/25 1840 MR#: [id number] Acct: [id number] Name: ALLIE MARIE Rep #: [id number] : 1935 89 From: Lilia Tom MD PCP: Dr. May Avitia MD Status:ADM IN Location: [place] [address] HPI - General General Date of Admission: [...] Former tobacco use who presents to the [facility] ED on 04/13/2025 with history of [...] Rocephin 1 g IV x 1. [facility] Medical History Essential (primary) hypertension Stenosis of [...] (Wasp Venom) Allergy Anaphylaxis Verified 04/13/25 14:28 Bpnaibd-LCI-GmL Reductase AdvReac muscle Verified 04/13/25 14:28 Inhibitor (Ufzdwte-Zgl-Mwp weakness Reductase Inhibitor) tramadol AdvReac Other Verified [...] chest pressure (more content not included)... Normal [facility] Hematocrit Auto (Bld) [Volum e fraction]Ordered By: Miladis Sánchez on 04-13-2025 Hematocrit (Bld) [Volume fraction] 33.4 % Low 37-47 [facility] Hemoglobin measurementOrdere d By: Miladis Sánchez on 04-13-2025 Hemoglobin (Bld) [Mass/Vol] 11.2 g/dL Low 12.0-15.0 [facility] Immature granulocytes/100 WB C Auto (Bld)Ordered By: Miladis Sánchez on 04-13-2025 Immature granulocytes/100 WBC (Bld) 0.400 % 0.0-0.9 [facility] Comment on above: IG% - Immature Granu locytes (promyelocytes, myelocytes and metamyelocytes) > 1% indicates that a LEFT SHIFT is Present. International normalized rat io (INR) calculationOrdered By: Ant Vale on 04-13-2025 INR Coag (Bld) [Relative time] 1.4 {INR} [facility] Ketones Test strip Ql (U)Ord ered By: Miladis Sánchez on 04-13-2025 Ketones Ql (U) Negative Negative [facility] L499.0042on 04-13-2025 Trop T High Sen 72 ng/L Invalid Interpretation Code <=14 [facility] Comment on above: Result Comment: Crit ical Result(s) Called at: 04/13/2025-17:53 by: Haresh Greco.??Results read back by same. Performed By: #### L 501.9520 #### [facility] [address] [place], [place], [address] L499.0043on 04-13-2025 Trop T High Sen 87 ng/L Invalid Interpretation Code <=14 [facility] Comment on above: Result Comment: Crit ical Result(s) Called at: 04/13/2025-21:02 by: Haresh Ornelas.??Results read back by same. Performed By: #### L 501.9520 #### [facility] [address] [place], [place], [address] L501.4021on 04-13-2025 Trop T High Sen 86 ng/L Invalid Interpretation Code <=14 [facility] Comment on above: Result Comment: Crit ical Result(s) Called at: 04/13/2025-16:00 by: Haresh Tom to Dari Elizalde.??Results read back by same. Performed By: #### L 501.9520 #### [facility] [address] [place], [address] Laboratory - Chemistry and C hemistry - challengeOrdered By: Miladis Sánchez on 04-13-2025 AST [Catalytic activity/Vol] 170 U/L High <32 [facility] MCV (mean corpuscular volume ) determinationOrdered By: Miladis Sánchez on 04-13-2025 MCV (RBC) [Entitic vol] 93.3 fL 81-99 [facility] Magnesiumon 04-13-2025 Magnesium [Mass/Vol] 1.9 mg/dL Normal 1.5-2.2 [facility] Comment on above: Order Comment: Comme nts: may add to ED labs Performed By: #### L 501.5200 #### [facility] [address] [place], [address] Magnesium [Mass/Vol] 2.4 mg/dL High 1.5-2.2 [facility] Comment on above: Performed By: #### L 501.5200 #### [facility] [address] [place], [address] Magnesium measurement (mass/ volume)Ordered By: Lilia Tom on 04-13-2025 Magnesium (Unsp spec) [Mass/Vol] 1.9 mg/dL 1.5-2.2 [facility] Magnesium measurement (mass/ volume)Ordered By: Miladis Sánchez on 04-13-2025 Magnesium (Unsp spec) [Mass/Vol] 2.4 mg/dL High 1.5-2.2 [facility] Mean corpuscular hemoglobin (MCH) determinationOrdered By: Miladis Sánchez on 04-13-2025 MCH (RBC) [Entitic mass] 31.3 pg 27.0-32.0 [facility] Mean corpuscular hemoglobin concentration (MCHC) determinationOrdered By: Miladis Sánchez on 04-13-2025 MCHC (RBC) [Mass/Vol] 33.5 g/dL 32-36 [facility] Mean platelet volume determi nationOrdered By: Miladis Sánchez on 04-13-2025 Platelet mean volume (Bld) [Entitic vol] 9.8 fL 6.2-12.0 [facility] Microscopic analysis of urin e for red blood cells (RBC)Ordered By: Miladis Sánchez on 04-13-2025 Microscopic analysis of urine for red blood cells (RBC) 25-50 SEEN /hpf 0-5 [facility] Monocyte percentageOrdered B y: Miladis Sánchez on 04-13-2025 Monocytes/100 WBC (Bld) 8.1 % 0-10 [facility] Mucus LM Ql (Urine sed)Order ed By: Miladis Sánchez on 04-13-2025 Mucus Ql (Urine sed) 0 SEEN /hpf [facility] Neutrophil percentageOrdered By: Miladis Sánchez on 04-13-2025 Neutrophils/100 WBC (Bld) 70.3 % High 47-70 [facility] Nitrite Test strip Ql (U)Ord ered By: Miladis Sánchez on 04-13-2025 Nitrite Ql (U) Positive High Negative [facility] Nucleated red blood cell per centageOrdered By: Miladis Sánchez on 04-13-2025 Nucleated RBC/100 WBC (Bld) [Ratio] 0 % 0-5 [facility] Platelet countOrdered By: Charmaine Sánchez on 04-13-2025 Platelets (Bld) [#/Vol] 166 10*3/uL 150-450 [facility] Potassium measurement (mass/ volume)Ordered By: Miladis Sánchez on 04-13-2025 Potassium (Unsp spec) [Mass/Vol] 3.9 mmol/L 3.3-5.1 [facility] Protein Test strip Ql (U)Ord ered By: Miladis Sánchez on 04-13-2025 Protein Ql (U) 100 mg/dl High Negative [facility] Prothrombin Time w/INRon INR Coag (PPP) [Relative time] 1.4 {INR} Normal [facility] Comment on above: Performed By: #### L [id number] #### [facility] [address] [place], [place], [id number] [phone] PT Coag (PPP) [Time] 17.0 s High 11.7-14.9 [facility] Comment on above: Performed By: #### L [id number] #### [facility] [address] [place], [address] INR Normal [facility] Comment on above: Result Comment: QNS, SPOKE WITH DARI Performed By: #### L [id number] #### [facility] [address] [place], [address] PROTIME Normal 11.7-14.9 [facility] Comment on above: Result Comment: QNS, SPOKE WITH DARI Performed By: #### L [id number] #### [facility] [address] [place], [address] Prothrombin timeOrdered By: Ant Vale on 04-13-2025 PT Coag (PPP) [Time] 17.0 s High 11.7-14.9 [facility] RBC Auto (Bld) [#/Vol]Ordere d By: Miladis Sánchez on 04-13-2025 RBC (Bld) [#/Vol] 3.58 10*6/uL Low 4.2-5.4 [facility] Serum creatinine measurement (mass/volume)Ordered By: Miladis Sánchez on 04-13-2025 Creatinine [Mass/Vol] 1.61 mg/dL High 0.70-1.20 [facility] Serum globulin measurementOr dered By: Miladis Sánchez on 04-13-2025 Globulin (S) [Mass/Vol] 2.4 g/dL 2.2-4.2 [facility] Serum glucose measurement (m ass/volume)Ordered By: Miladis Sánchez on 04-13-2025 Glucose [Mass/Vol] 165 mg/dL High 70-99 [facility] Serum or plasma alanine mckeon otransferase (ALT) measurementOrdered By: Miladis Sánchez on 04-13-2025 ALT [Catalytic activity/Vol] 127 U/L High <35 [facility] Serum or plasma albumin jayy urement (mass/volume)Ordered By: Miladis Sánchez on 04-13-2025 Albumin [Mass/Vol] 3.8 g/dL 3.4-4.8 [facility] Serum or plasma albumin/glob ulin mass ratioOrdered By: Miladis Sánchez on 04-13-2025 Albumin/Globulin [Mass ratio] 1.6 {ratio} 0.9-2.4 [facility] Serum or plasma alkaline kinga sphatase measurementOrdered By: Miladis Sánchez on 04-13-2025 ALP [Catalytic activity/Vol] 53 U/L 35-104 [facility] Serum or plasma calcium jayy urement (mass/volume)Ordered By: Miladis Sánchez on 04-13-2025 Calcium [Mass/Vol] 9.5 mg/dL 7.6-11.0 [facility] Serum or plasma urea nitroge n measurement (mass/volume)Ordered By: Miladis Sánchez on 04-13-2025 Urea nitrogen [Mass/Vol] 27 mg/dL High 4-19 [facility] Sodium levelOrdered By: Stan Sánchez on 04-13-2025 Sodium [Moles/Vol] 142 mmol/L 133-145 [facility] Squamous epithelial cells de tection in urine sediment by light microscopyOrdered By: Miladis Sánchez on 04-13-2025 Epithelial cells.squamous LM Ql (Urine sed) 0-5 SEEN /hpf 5-10 [facility] T4 Free Directon 04-13-2025 T4 FREE DIRECT 1.00 ng/dL Normal 0.76-1.46 [facility] Comment on above: Performed By: #### L [id number] #### [facility] [address] [place], [address] T4 freeOrdered By: Miladis Sánchez on 04-13-2025 Free T4 [Mass/Vol] 1.00 ng/dL 0.76-1.46 [facility] TSH DL <= 0.005 mIU/L QnOrde red By: Miladis Sánchez on 04-13-2025 TSH Qn 4.720 uIU/mL High 0.300-4.200 [facility] Thyroid Stim Hormone (TSH)on 04-13-2025 TSH 4.720 uIU/mL High 0.300-4.200 [facility] Comment on above: Performed By: #### L [id number] #### [facility] [address] [place], [address] Total proteinOrdered By: Paul Sánchez on 04-13-2025 Protein [Mass/Vol] 6.2 g/dL 5.9-8.4 [facility] Troponin T.cardiac [Mass/vol ume] in Serum or Plasma by High sensitivity methodOrdered By: Lilia Tom on 04-13-2025 Troponin T.cardiac High sensitivity method [Mass/Vol] 87 ng/L High <14 [facility] Comment on above: Critical Result(s) C alled at: 04/13/2025-21:02 by: Haresh Tom to Riki Ornelas. Results read back by same. Troponin T.cardiac [Mass/vol ume] in Serum or Plasma by High sensitivity methodOrdered By: Miladis Sánchez on 04-13-2025 Troponin T.cardiac High sensitivity method [Mass/Vol] 72 ng/L High <14 [facility] Comment on above: Critical Result(s) C alled at: 04/13/2025-17:53 by: Haresh Tom to Malou Greco. Results read back by same. Troponin T.cardiac High sensitivity method [Mass/Vol] 86 ng/L High <14 [facility] Comment on above: Critical Result(s) C alled at: 04/13/2025-16:00 by: Haresh Tom to aDri Elizalde. Results read back by same. Urinalysis, Completeon 04-13 CAST,COARSE GR 0-5 SEEN Normal 0-5 /lpf [facility] Comment on above: Order Comment: COLLE CTOR TO SPECIFY Performed By: #### L [id number] #### [facility] [address] [place], [address] CAST,FINE GRAN 0-5 SEEN Normal 0-5 [facility] Comment on above: Order Comment: DARYL CTOR TO SPECIFY Performed By: #### L [id number] #### [facility] [address] [place], [address] BACTERIA 4+ /hpf Normal None Seen [facility] Comment on above: Order Comment: DARYL CTOR TO SPECIFY Performed By: #### L [id number] #### [facility] [address] [place], [address] EPI,RENAL 0-5 SEEN Normal 0-5 [facility] Comment on above: Order Comment: DARYL CTOR TO SPECIFY Performed By: #### L [id number] #### [facility] [address] [place], [address] EPI,SQUAMOUS 0-5 SEEN Normal 5-10 [facility] Comment on above: Order Comment: DARYL CTOR TO SPECIFY Performed By: #### L [id number] #### [facility] [address] [place], [address] RBC 25-50 SEEN Normal 0-5 [facility] Comment on above: Order Comment: DARYL CTOR TO SPECIFY Performed By: #### L [id number] #### [facility] [address] [place], [address] WBC 25-50 SEEN Normal 0-5 [facility] Comment on above: Order Comment: DARYL CTOR TO SPECIFY Performed By: #### L [id number] #### [facility] [address] [place], [address] Mucus Ql (Urine sed) 0 SEEN Normal [facility] Comment on above: Order Comment: DARYL CTOR TO SPECIFY Performed By: #### L [id number] #### [facility] [address] [place], [address] Urine clarityOrdered By: Paul Sánchez on 04-13-2025 Clarity (U) Sl. Cloudy Clear [facility] Urine coarse granular cast d etectionOrdered By: Miladis Sánchez on 04-13-2025 Coarse Granular Casts LM Ql (Urine sed) 0-5 SEEN /lpf 0-5 /lpf [facility] Urine color determinationOrd ered By: Miladis Sánchez on 04-13-2025 Color (U) Yellow Yellow [facility] Urine cultureOrdered By: Paul Sánchez on 04-13-2025 Bacteria identified Cx Nom (U) Escherichia coli Abnormal [facility] Urine glucose detectionOrder ed By: Miladis Sánchez on 04-13-2025 Glucose Ql (U) Normal mg/dl Normal [facility] Urine leukocyte esterase det ection by dipstickOrdered By: Miladis Sánchez on 04-13-2025 Leukocyte esterase Test strip Ql (U) 500 /ul High Negative [facility] Urine pHOrdered By: Eugenia Sánchez on 04-13-2025 pH (U) 6.0 [pH] 5.0 - 8.0 [facility] Urine sediment bacteria coun t by microscopy (number/high power field)Ordered By: Miladis Sánchez on 04-13-2025 Bacteria LM.HPF (Urine sed) [#/Area] 4 /[HPF] None Seen [facility] Urine sediment fine granular cast count by microscopy (number/low power field)Ordered By: Miladis Sánchez on 04-13-2025 Fine Granular Casts LM.LPF (Urine sed) [#/Area] 0-5 SEEN /lpf 0-5 [facility] Urine sediment renal epithel ial cell count by microscopy (number/high power field)Ordered By: Miladis Sánchez on 04-13-2025 Epithelial cells.renal LM.HPF (Urine sed) [#/Area] 0 /[HPF] 0-5 [facility] Urine specific gravity measu rementOrdered By: Miladis Sánchez on 04-13-2025 Specific gravity (U) [Rel density] 1.020 1.002-1.030 [facility] Urine urobilinogen measureme ntOrdered By: Miladis Sánchez on 05-18-2025 Urobilinogen Ql (U) 4 mg/dl High Normal [facility] White blood cell (WBC) count Ordered By: Miladis Sánchez on 04-13-2025 WBC (Bld) [#/Vol] 7.3 10*3/uL 4.4-11.0 [facility] White blood cell countOrdere d By: Miladis Sánchez on 04-13-2025 White blood cell count 25-50 SEEN /hpf 0-5 [facility] Absolute lymphocyte countOrd ered By: Aime Fernandes on 02-25-2024 Lymphocytes Auto (Unsp spec) [#/Vol] 1.42 10*3/uL 0.83-4.51 [facility] Automated lymphocyte count a s percentage of total leukocytesOrdered By: Aime Fernandes on 02-25-2024 Lymphocytes/100 WBC Auto (Unsp spec) 19.8 % 19-41 [facility] Basophil percentageOrdered B y: Aime Fernandes on 02-25-2024 Basophils/100 WBC (Bld) 0.7 % 0-1 [facility] Chloride [Moles/Vol] 114 mmol/L 98-107 [facility] Eosinophils/100 WBC (Bld) 2.5 % 0-5 [facility] Glucose [Mass/Vol] 116 mg/dL 74-106 [facility] Comment on above: Fasting Glucose resu lt from 100 to 125 mg/dL suggests IMPAIRED HOMEOSTASIS per A.D.A. criteria. Hemoglobin (Bld) [Mass/Vol] 12.6 g/dL 12.0-15.0 [facility] Monocytes/100 WBC (Bld) 12.4 % 0-10 [facility] Neutrophils (Bld) [#/Vol] 4.6 10*3/uL 2.0-7.7 [facility] Neutrophils/100 WBC (Bld) 64.3 % 47-70 [facility] Potassium [Moles/Vol] 3.7 mmol/L 3.5-5.1 [facility] Sodium [Moles/Vol] 144 mmol/L 136-145 [facility] WBC (Bld) [#/Vol] 7.2 10*3/uL 4.4-11.0 [facility] Basophil percentage 25-50 SEEN /hpf 0-5 [facility] Bilirubin Test strip Ql (U)O rdered By: Aime Fernandes on 02-25-2024 Bilirubin Ql (U) Negative Negative [facility] Determination of erythrocyte mean corpuscular volume (MCV)Ordered By: Aime Fernandes on 02-25-2024 MCV (RBC) [Entitic vol] 89.6 fL 81-99 [facility] Erythrocyte distribution wid th ratioOrdered By: Aime Fernandes on 02-25-2024 Erythrocyte distribution width (RBC) [Ratio] 12.3 % 11.6-14.6 [facility] Erythrocyte distribution wid th standard deviationOrdered By: Aime Fernandes on 02-25-2024 Erythrocyte distribution width (RBC) [Entitic vol] 40.5 fL 35.1-43.9 [facility] Hematocrit Auto (Bld) [Volum e fraction]Ordered By: Aime Fernandes on 02-25-2024 Hematocrit (Bld) [Volume fraction] 37.2 % 37-47 [facility] Hyaline casts LM.LPF (Urine sed) [#/Area]Ordered By: Aime Fernandes on 02-25-2024 Hyaline casts (Urine sed) [#/Area] 10 /[LPF] 0-5 [facility] Immature granulocytes/100 WB C Auto (Bld)Ordered By: Aime Fernandes on 02-25-2024 Immature granulocytes/100 WBC (Bld) 0.300 % 0.0-0.9 [facility] Comment on above: IG% - Immature Granu locytes (promyelocytes, myelocytes and metamyelocytes) > 1% indicates that a LEFT SHIFT is Present. Ketones Test strip Ql (U)Ord ered By: Aime Fernandes on 02-25-2024 Ketones Ql (U) 5 mg/dl Negative [facility] - Chemistry and C hemistry - challengeOrdered By: Aime Fernandes on 02-25-2024 CO2 [Moles/Vol] 22.0 mmol/L 21.0-32.0 [facility] Urea nitrogen/Creatinine [Mass ratio] 13.1 mg/mg 10-20 [facility] - Hematology and Cell countsOrdered By: Aime Fernandes on 02-25-2024 MCH (RBC) [Entitic mass] 30.4 pg 27.0-32.0 [facility] MCHC (RBC) [Mass/Vol] 33.9 g/dL 32-36 [facility] Nucleated RBC/100 WBC (Bld) [Ratio] 0 % 0-5 [facility] Platelet mean volume (Bld) [Entitic vol] 9.7 fL 6.2-12.0 [facility] Platelets (Bld) [#/Vol] 207 10*3/uL 150-450 [facility] Mucus LM Ql (Urine sed)Order ed By: Aime Fernandes on 02-25-2024 Mucus Ql (Urine sed) 2+ /hpf [facility] Nitrite Test strip Ql (U)Ord ered By: Aime Fernandes on 02-25-2024 Nitrite Ql (U) Positive Negative [facility] No Panel InformationOrdered By: Aime Fernandes on 02-25-2024 Estimated GFR (MDRD) Amer 39 mL/min >60 [facility] Comment on above: GFR Calc Estimated GFR (MDRD) Non-Af Amer 32 mL/min >60 [facility] Comment on above: Non- GFR Calc Urine RBC 25-50 SEEN /hpf 0-5 [facility] Protein Test strip Ql (U)Ord ered By: Aime Fernandes on 02-25-2024 Protein Ql (U) 100 mg/dl Negative [facility] RBC Auto (Bld) [#/Vol]Ordere d By: Aime Fernandes on 02-25-2024 RBC (Bld) [#/Vol] 4.15 10*6/uL 4.2-5.4 [facility] Serum or plasma calcium jayy urement (mass/volume)Ordered By: Aime Fernandes on 02-25-2024 Calcium [Mass/Vol] 9.1 mg/dL 8.5-10.1 [facility] Serum or plasma creatinine m easurement (mass/volume)Ordered By: Aime Fernandes on 02-25-2024 Creatinine [Mass/Vol] 1.60 mg/dL 0.55-1.02 [facility] Comment on above: The validity of the calculated GFR & GFRAA in patients over 70 years has not been determined. Clinical correlation is essential. Serum or plasma urea nitroge n measurement (mass/volume)Ordered By: Aime Fernandes on 02-25-2024 Urea nitrogen [Mass/Vol] 21 mg/dL 7-18 [facility] Squamous epithelial cells de tection in urine sediment by light microscopyOrdered By: Aime Fernandes on 02-25-2024 Epithelial cells.squamous LM Ql (Urine sed) 10-25 SEEN /hpf 5-10 [facility] Thin prep Papanicolaou smear with manual screeningOrdered By: Aime Fernandes on 02-25-2024 Thin prep Papanicolaou smear with manual screening 8 5-15 [facility] Transitional cells detection in urine sediment by light microscopyOrdered By: Aime Fernandes on 02-25-2024 Transitional cells LM Ql (Urine sed) 0-5 SEEN /hpf 0-5 [facility] Urine blood detectionOrdered By: Aime Fernandes on 02-25-2024 RBC Ql (U) 250 /ul Negative [facility] Urine clarityOrdered By: Kevin Fernandes on 02-25-2024 Clarity (U) Cloudy Clear [facility] Urine coarse granular cast d etectionOrdered By: Aime Fernandes on 02-25-2024 Coarse Granular Casts LM Ql (Urine sed) 0-5 SEEN /lpf 0-5 /lpf [facility] Urine color determinationOrd ered By: Aime Fernandes on 02-25-2024 Color (U) Yellow Yellow [facility] Urine glucose detectionOrder ed By: Aime Fernandes on 02-25-2024 Glucose Ql (U) Normal mg/dl Normal [facility] Urine leukocyte esterase det ection by dipstickOrdered By: Aime Fernandes on 02-25-2024 Leukocyte esterase Test strip Ql (U) 500 /ul Negative [facility] Urine pHOrdered By: Aime espana on 02-25-2024 pH (U) 5.0 [pH] 5.0 - 8.0 [facility] Urine sediment bacteria coun t by microscopy (number/high power field)Ordered By: Aime Fernandes on 02-25-2024 Bacteria LM.HPF (Urine sed) [#/Area] 4 /[HPF] None Seen [facility] Urine sediment fine granular cast count by microscopy (number/low power field)Ordered By: Aime Fernandes on 02-25-2024 Fine Granular Casts LM.LPF (Urine sed) [#/Area] 0-5 SEEN /lpf 0-5 [facility] Urine specific gravity measu rementOrdered By: Aime Fernandes on 02-25-2024 Specific gravity (U) [Rel density] 1.025 1.002-1.030 [facility] Urine urobilinogen measureme ntOrdered By: Aime Fernandes on 02-25-2024 Urobilinogen Ql (U) 8 mg/dl [facility] Basophil percentageon 2021 Chloride [Moles/Vol] 107 mmol/L 98-107 [facility] Work Phone: Cholesterol [Mass/Vol] 149 mg/dL <200 [facility] Work Phone: [phone] Comment on above: <200 mg/dL Desirable 200-240 mg/dL Borderline >240 mg/dL High Risk Glucose [Mass/Vol] 64 mg/dL 74-106 [facility] Work Phone: [phone] Potassium [Moles/Vol] 3.8 mmol/L 3.5-5.1 [facility] Work Phone: [phone] Sodium [Moles/Vol] 141 mmol/L 136-145 [facility] Work Phone: [phone] Triglyceride [Mass/Vol] 213 mg/dL <199 [facility] Work Phone: Comment on above: The drugs N-Acetylcy steine and Metamizole may falsely depress this assay.Serum Triglycerides Reference Interval Normal <150 mg/dL Borderline high 150 - 199 mg/dL High 200 - 499 mg/dL Very High > or = 500 mg/dL Laboratory - Chemistry and C hemistry - challengeon 10-17-2022 ALT [Catalytic activity/Vol] 24 U/L 13-56 [facility] Work Phone: CO2 [Moles/Vol] 24.0 mmol/L 21.0-32.0 [facility] Work Phone: T4 [Mass/Vol] 12.3 ug/dL 4.8-13.9 [facility] Work Phone: Urea nitrogen/Creatinine [Mass ratio] 24.1 mg/mg 10-20 [facility] Work Phone: No Panel Informationon 10-17 Urine Microalbumin/Creatinine Ratio 628.3 mg/g CRE <30 [facility] Work Phone: Estimated GFR (MDRD) Amer 59 mL/min >60 [facility] Work Phone: Comment on above: GFR Calc Estimated GFR (MDRD) Non-Af Amer 49 mL/min >60 [facility] Work Phone: Comment on above: Non- GFR Calc Thyroid Stimulating Hormone (TSH) 0.06 uIU/mL 0.358-3.74 [facility] Work Phone: Serum or plasma calcium jayy urement (mass/volume)on 10-17-2022 Calcium [Mass/Vol] 9.1 mg/dL 8.5-10.1 [facility] Work Phone: Serum or plasma cholesterol in HDL measurement (mass/volume)on 10-17-2022 Cholesterol in HDL [Mass/Vol] 41 mg/dL >40 [facility] Work Phone: Comment on above: The drugs N-Acetylcy steine and Metamizole may falsely depress this assay. Reference Range HDL <40 mg/dL Low HDL Cholesterol HDL >or= 60 mg/dL High HDL Cholesterol Serum or plasma cholesterol in VLDL measurement (mass/volume)on 10-17-2022 Cholesterol in VLDL [Mass/Vol] 43 mg/dL 5-40 [facility] Work Phone: [phone] Serum or plasma creatinine m easurement (mass/volume)on 10-17-2022 Creatinine [Mass/Vol] 1.12 mg/dL 0.55-1.02 [facility] Work Phone: Comment on above: The validity of the calculated GFR & GFRAA in patients over 70 years has not been determined. Clinical correlation is essential. Serum or plasma low density lipoprotein (LDL) cholesterol measurement (mass/volume)on 10-17-2022 Cholesterol in LDL [Mass/Vol] 65 mg/dL 0-130 [facility] Work Phone: Serum or plasma urea nitroge n measurement (mass/volume)on 10-17-2022 Urea nitrogen [Mass/Vol] 27 mg/dL 7-18 [facility] Work Phone: Thin prep Papanicolaou smear with manual screeningon 10-17-2022 Thin prep Papanicolaou smear with manual screening 1200.0 mg/L NO RANGE EST. [facility] Work Phone: Thin prep Papanicolaou smear with manual screening 23 U/L 15-37 [facility] Work Phone: Thin prep Papanicolaou smear with manual screening 10 5-15 [facility] Work Phone: Urine creatinine measurement (mass/volume)on 10-17-2022 Creatinine (U) [Mass/Vol] 191.00 mg/dL NO RANGE EST. [facility] Work Phone: Office Visiton 05-02-2017 Fall risk assessment Yes [facility] Work Phone: [phone] Protein mass conc Done [facility] Work Phone: [phone] Clinical Lists Update: 04-28-2017 Left ventricular Ejection fraction 75 % [facility] Work Phone: [phone] Office Visiton 10-13-2016 Documentation of current medications (procedure) Done Invalid Interpretation Code [facility] Work Phone: [phone] Clinical Lists Update: 08-05-2016 Tobacco smoking status NHIS Former smoker [facility] Work Phone: [phone] Tobacco use CPHS Former smoker Invalid Interpretation Code [facility] Work Phone: [phone] Clinical Lists Update: 06-23-2016 Anion gap 10 mmol/L Invalid Interpretation Code [facility] Work Phone: [phone] Anion gap [Moles/Vol] 10 mmol/L [facility] Work Phone: [phone] basophils as percent of blood leukocytes, manual count 1.3 % High [facility] Work Phone: [phone] BUN/Creatinine Ratio 14.4 mg/mg [facility] Work Phone: 1 Calcium 8.3 mg/dL Low [facility] Work [phone] Chloride 110 mmol/L High [facility] Work Phone: [phone] Cholesterol 242 mg/dL High [facility] Work Phone: 1) CO2 21.0 mmol/L Invalid Interpretation Code [facility] Work Phone: [phone] CO2 (BldV) [Partial pressure] 21.0 mmol/L [facility] Work Phone: 1 Creatinine 0.90 mg/dL [facility] Work Phone: [phone] eosinophils as percent of blood leukocytes, manual count 5.6 % High [facility] Work Phone: [phone] Erythrocyte distribution width (RBC) [Ratio] 12.1 % [facility] Work Phone: [phone] Erythrocytes (RBC) 3.96 10*6/uL Low [facility] Work Phone: 1) Glucose 101 mg/dL Invalid Interpretation Code [facility] Work Phone: [phone] Glucose [Mass/Vol] 101 mg/dL [facility] Work Phone: [phone] HDL Cholesterol 28 mg/dL Low [facility] Work Phone: 1) Hematocrit (Bld) [Volume fraction] 34.8 % Low [facility] Work Phone: [phone] Hematocrit (HCT) 34.8 % Low [facility] Work Phone: [phone] Hemoglobin (HGB) 12.4 g/dL [facility] Work Phone: [phone] LDL Cholesterol 153 mg/dL High [facility] Work Phone: 1) Lymphocytes/100 leukocytes 39.3 % Invalid Interpretation Code [facility] Work Phone: [phone] Lymphocytes/100 WBC (Bld) 39.3 % [facility] Work Phone: 1) MCH 31.3 pg Invalid Interpretation Code [facility] Work Phone: [phone] MCH (RBC) [Entitic mass] 31.3 pg [facility] Work Phone: 1) MCHC 35.6 g/dL Invalid Interpretation Code [facility] Work Phone: ) MCHC (RBC) [Mass/Vol] 35.6 g/dL [facility] Work Phone: ) MCV 87 fL Invalid Interpretation Code [facility] Work Phone: 1) MCV (RBC) [Entitic vol] 87 fL [facility] Work Phone: 1) Monocytes/100 leukocytes 15.3 % High [facility] Work Phone: ) Monocytes/100 WBC (Bld) 15.3 % High [facility] Work Phone: neutrophils, band form as percent of blood leukocytes, manual count 37.9 % Low [facility] Work Phone: Platelet mean volume (Bld) [Entitic vol] 9.8 fL [facility] Work Phone: ) Platelets 224 10*3/mm3 Invalid Interpretation Code [facility] Work Phone: Platelets (Bld) [#/Vol] 224 10*3/mm3 [facility] Work Phone: ) PMV by Melonie 9.8 fL Invalid Interpretation Code [facility] Work Phone: Potassium 3.6 mmol/L [facility] Work Phone: RBC (Bld) [#/Vol] 3.96 10*6/uL [facility] Work Phone: ) RDW-CA 12.1 % Invalid Interpretation Code [facility] Work Phone: ) Sodium 141 mmol/L [facility] Work Phone: ) Triglyceride 306 mg/dL High [facility] Work Phone: ) Urea nitrogen 13 mg/dL [facility] Work Phone: ) very low density lipoproteins 61 mg/dL High [facility] Work Phone: [phone] WBC (Bld) [#/Vol] 6.2 10*3/uL [facility] Work Phone: [phone] WBC (Leukocytes) 6.2 10*3/uL Invalid Interpretation Code [facility] Work Phone: [phone] Vital Signs Date Time Vital Sign Value Performing Clinician Faci lity 06-29-2025 13:24-0400 Diastolic blood pressure 83 mm[Hg] Dr. May Avitia MD Work Phone: [facility] 06-29-2025 13:24-0400 Heart rate 68 /min Dr. May Avitia MD Work Phone: [facility] 06-29-2025 13:24-0400 Respiratory rate 18 /min Dr. May Avitia MD Work Phone: [facility] 06-29-2025 13:24-0400 SaO2% (BldA) [Mass fraction] 97 % Dr. May Avitia MD Work Phone: [facility] 06-29-2025 13:24-0400 Systolic blood pressure 170 mm[Hg] Dr. aMy Avitia MD Work Phone: [facility] 06-29-2025 09:30-0400 Body temperature 98.5 [degF] Dr. May Avitia MD Work Phone: [facility] 06-27-2025 12:58-0400 Body height 157.[address] May Avitia MD Work Phone: [facility] 06-27-2025 12:58-0400 Body mass index (BMI) [Ratio] 23.1 kg/m2 Dr. May Avitia MD Work Phone: [facility] 06-27-2025 12:58-0400 Body weight 57.[address] May Avitia MD Work Phone: [facility] 06-27-2025 10:39-0400 Inhaled oxygen flow rate 6 L/min Dr. May Avitia MD Work Phone: [facility] 06-13-2025 19:10-0400 Diastolic blood pressure 84 mm[Hg] Dr. May Avitia MD Work Phone: 7(980)056-015672 [place] [address] 06-13-2025 19:10-0400 Heart rate 69 /min Dr. May Avitia MD Work Phone: 0(067)296-236509 [place] [address] 06-13-2025 19:10-0400 Respiratory rate 16 /min Dr. May Avitia MD Work Phone: 1(708)589-598072 [place] [address] 06-13-2025 19:10-0400 SaO2% (BldA) [Mass fraction] 97 % Dr. May Avitia MD Work Phone: 1(833)394-061309 [place] [address] 06-13-2025 19:10-0400 Systolic blood pressure 175 mm[Hg] Dr. May Avitia MD Work Phone: 0(393)811-136909 [place] [address] 06-13-2025 17:45-0400 Body temperature 97.9 [degF] Dr. May Avitia MD Work Phone: 0(886)736-126209 [place] [address] 06-13-2025 15:06-0400 Body height 157.[address] May Avitia MD Work Phone: 0(210)130-590609 [place] [address] 06-13-2025 15:06-0400 Body mass index (BMI) [Ratio] 21.9 kg/m2 Dr. May Avitia MD Work Phone: 7(561)181-159509 [place] [address] 06-13-2025 15:06-0400 Body weight 54.[address] May Avitia MD Work Phone: 0(132)999-293109 [place] [address] 04-15-2025 15:27-0400 Body temperature 97.8 [degF] Dr. May Avitia MD Work Phone: 3(147)036-252509 [place] [address] 04-15-2025 15:27-0400 Diastolic blood pressure 55 mm[Hg] Dr. May Avitia MD Work Phone: 8(743)582-163809 [place] [address] 04-15-2025 15:27-0400 Heart rate 65 /min Dr. May Avitia MD Work Phone: [facility] 04-15-2025 15:27-0400 Respiratory rate 16 /min Dr. May Avitia MD Work Phone: [facility] 04-15-2025 15:27-0400 SaO2% (BldA) [Mass fraction] 96 % Dr. May Avitia MD Work Phone: 6(492)806-006572 [place] [address] 04-15-2025 15:27-0400 Systolic blood pressure 121 mm[Hg] Dr. May Avitia MD Work Phone: 4(234)331-111309 [place] [address] 04-15-2025 03:43-0400 Body mass index (BMI) [Ratio] 21.4 kg/m2 Dr. May Avitia MD Work Phone: 8(691)018-432409 [place] [address] 04-15-2025 03:43-0400 Body weight 53.[address] May Avitia MD Work Phone: 1(535)341-461909 [place] [address] 04-14-2025 10:17-0400 Body height 157.[address] May Avitia MD Work Phone: 5(322)690-704009 [place] [address] 04-13-2025 18:41-0400 Body temperature 97.8 [degF] Dr. May Avitia MD Work Phone: 8(332)962-685709 [place] [address] 04-13-2025 18:41-0400 Diastolic blood pressure 65 mm[Hg] Dr. May Avitia MD Work Phone: 0(821)914-083772 [place] [address] 04-13-2025 18:41-0400 Heart rate 72 /min Dr. aMy Avitia MD Work Phone: 3(325)323-367309 [place] [address] 04-13-2025 18:41-0400 Respiratory rate 16 /min Dr. May Avitia MD Work Phone: 2(054)965-509009 [place] [address] 04-13-2025 18:41-0400 SaO2% (BldA) [Mass fraction] 99 % Dr. May Avitia MD Work Phone: 6(201)436-394972 [place] [address] 04-13-2025 18:41-0400 Systolic blood pressure 151 mm[Hg] Dr. May Avitia MD Work Phone: [facility] 04-13-2025 14:55-0400 Body mass index (BMI) [Ratio] 21 kg/m2 Dr. May Avitia MD Work Phone: [facility] 04-13-2025 14:55-0400 Body weight 52.[address] May Avitia MD Work Phone: [facility] 04-13-2025 14:28-0400 Body height 157.[address] May Avitia MD Work Phone: [facility] 02-26-2024 00:00-0400 Diastolic blood pressure 72 mm[Hg] [facility] 02-26-2024 00:00-0400 Heart rate 89 /min [facility] 02-26-2024 00:00-0400 Respiratory rate 18 /min [facility] 02-26-2024 00:00-0400 SaO2% (BldA) [Mass fraction] 97 % [facility] 02-26-2024 00:00-0400 Systolic blood pressure 127 mm[Hg] [facility] 02-25-2024 20:43-0400 Body height 160.02 cm [facility] 02-25-2024 20:43-0400 Body temperature 96.3 [degF] [facility] 05-02-2017 14:54-0400 BMI (Body Mass Index) 26.92 kg/m2 [facility] Work Phone: 05-02-2017 14:54-0400 Body weight 66.77 kg [facility] Work Phone: 05-02-2017 14:54-0400 BP Diastolic 64 mm[Hg] [facility] Work Phone: 05-02-2017 14:54-0400 BP Systolic 120 mm[Hg] Martha Mcrae [facility] Work Phone: 05-02-2017 14:54-0400 Height 157.48 cm Martha Mcrae [facility] Work Phone: 05-02-2017 14:54-0400 Pulse (Heart Rate) 72 /min Martha Mcrae [facility] Work Phone: 05-02-2017 14:54-0400 Respiratory Rate 20 /min Martha Mcrae [facility] Work Phone: 05-02-2017 14:54-0400 Weight 66.77 kg Martha Mcrae [facility] Work Phone: 10-13-2016 13:43-0500 BMI (Body Mass Index) 27.38 kg/m2 Ramona Philip RN [facility] Work Phone: 10-13-2016 13:43-0500 Body weight 67.9 kg [place] Feli [facility] Work Phone: 10-13-2016 13:43-0500 BP Diastolic 80 mm[Hg] Ramona Philip RN [facility] Work Phone: 10-13-2016 13:43-0500 BP Systolic 142 mm[Hg] Ramona Philip RN [facility] Work Phone: 10-13-2016 13:43-0500 BSA (Body Surface Area) 1.69 m2 Ramona Philip RN [facility] Work Phone: 10-13-2016 13:43-0500 Pulse (Heart Rate) 64 /min [facility] Work Phone: 10-13-2016 13:43-0500 Respiratory Rate 20 /min [facility] Work Phone: 10-13-2016 13:43-0500 Weight 67.9 kg Ramona Pihlip RN [facility] Work Phone: 08-10-2016 10:56-0400 Height 157.48 cm Ramona Philip RN [facility] Work Phone: Encounters Encounter Date Encounter Type Care Provider Facility Start: 07-02-2025 End: 07-02-[address] May Avitia MD Work Phone: -Laboratory Specimen Start: 07-02-2025 End: 07-02-[address] Akhil Leslie MD -Laboratory Specimen Work Phone: Start: 07-02-2025 End: 07-02-2025 ambulatory Angel Juan Facility:[facility] Start: 06-28-2025 End: 06-29-2025 Evaluation and management of inpatient Dr. Akhil Leslie MD -Medical Surgical 3 Work Phone: Start: 06-13-2025 End: 06-13-2025 Admission to same day surgery center Dr. Akhil Leslie MD -Surgical Day Care Start: 06-13-2025 End: 06-13-[address] May Avitia MD Work Phone: -Surgical Day Care Start: 06-12-2025 End: 06-12-[address] May Avitia MD Work Phone: -Cat Scan [facility] Start: 06-12-2025 End: 06-12-[address] Akhil Leslie MD -Cat Scan [facility] Work Phone: Start: 06-12-2025 End: 06-12-2025 ambulatory Akhil Leslie Facility:[facility] Start: 05-28-2025 End: 05-28-[address] May Avitia MD Work Phone: -Laboratory [place] Start: 05-28-2025 End: 05-28-2025 Patient encounter procedure Boubacar Mauricio BEE RANCHER-C -Laboratory [place] Work Phone: Start: 05-28-2025 End: 05-28-2025 ambulatory Boubacar Hang BEE RANCHER Facility:[facility] Start: 04-14-2025 Non-patient / Non-visit Dr. Ken Parker DO -[facility] Work Phone: Start: 04-14-2025 ambulatory Philip Martinez Facility:[facility] Start: 04-14-2025 Non-patient / Non-visit Dr. Philip Martinez MD -[facility] Start: 04-13-2025 ambulatory May Avitia Facility: [facility] Start: 04-13-2025 End: 04-15-2025 Evaluation and management of inpatient Dr. Lilia Tom MD -Progressive Care Unit Work Phone: Start: 02-25-2024 End: 02-26-2024 Emergency department patient visit [facility]-Emergency Department Work Phone: Start: 10-17-2022 End: 10-17-2022 ambulatory [facility] Work Phone: Start: 10-17-2022 End: 10-17-2022 Patient encounter procedure [facility]-Laboratory, [facility] Procedures Date Procedure Procedure Detail Performing Clinician Start: 07-01-2025 Urnls dip stick/tabl et reagent auto microscopy Dr. May Avitia MD Work Phone: Start: 06-29-[address] May Avitia MD Work Phone: Start: 06-27-[address] Julee Avitia MD Work Phone: Start: 06-27-2025 Transurethral resect ion of bladder neoplasm Dr. May Avitia MD Work Phone: Start: 06-13-2025 Cystoscopy and retro grade pyelography [...] End: 10-13-2016 Documentation of current medications [place] Feli Start: 10-13-2016 End: 10-13-2016 HOANG Martinez MD Start: 10-13-2016 End: 10-13-2016 Follow Up Appt 6 months Loraine De La Torre Start: 08-10-2016 End: 08-10-2016 HOANG Martinez MD Start: 08-10-2016 End: 08-10-2016 Follow Up Appt 2 months Loraine De La Torre Plan of Treatment Date Care Activity Detail Author Start: 06-29-2025 Patient discharge [facility] Start: 06-28-2025 Referral to service [facility] Start: 06-28-2025 Measuring intake and output [facility] Start: 06-28-2025 Referral for physical therapy [facility] Start: 06-28-2025 Referral to occupational therapist [facility] Start: 06-28-2025 Referral to service [facility] Start: 06-28-2025 Admission procedure [facility] Start: 06-28-2025 End: 06-28-2025 Administration of blood product [facility] Start: 06-28-2025 Transfusion of red blood cells [facility] Start: 06-28-2025 Application of intermittent pneumatic compression device [facility] Start: 06-27-2025 Following clinical pathway protocol [facility] Start: 06-27-2025 Measuring intake and output [facility] Start: 06-27-2025 Deep breathing and coughing exercises [facility] Start: 06-27-2025 Incentive spirometry [facility] Start: 06-27-2025 Assessment of risk of venous thromboembolism [facility] Start: 06-27-2025 Following clinical pathway protocol [facility] Start: 06-27-2025 End: 06-27-2025 Provision of activity privileges [facility] Start: 06-27-2025 Taking patient vital signs [facility] Start: 06-27-2025 Vital signs measurements [facility] Start: 06-27-2025 End: 06-27-2025 [facility] Start: 06-27-2025 Admission procedure [facility] Start: 06-13-2025 Ambulation without limitation [facility] Start: 06-13-2025 Medication education [facility] Start: 06-13-2025 End: 06-13-2025 Patient discharge [facility] Start: 06-13-2025 Taking patient vital signs [facility] Start: 06-13-2025 [facility] Start: 06-13-2025 Anes transurethral w/urethrocystoscopy nos ANESTH BLADDER SURGERY [facility] Start: 06-13-2025 Cysto/pyeloscopy bx&/fulguration pelivc lesion CYSTOURETERO W/BIOPSY [facility] Start: 04-15-2025 Patient discharge [facility] Start: 04-14-2025 Referral to service [facility] Start: 04-13-2025 Following clinical pathway protocol [facility] Start: 04-13-2025 Assessment of risk of venous thromboembolism [facility] Start: 04-13-2025 Fall prevention [facility] Start: 04-13-2025 Inhalation therapy procedure [facility] Start: 04-13-2025 Insertion of catheter into peripheral vein [facility] Start: 04-13-2025 Introduction of urinary catheter [facility] Start: 04-13-2025 Measuring intake and output [facility] Start: 04-13-2025 Oxygen therapy [facility] Start: 04-13-2025 Providing care according to standard [facility] Start: 04-13-2025 Provision of activity privileges [facility] Start: 04-13-2025 Referral to occupational therapist [facility] Start: 04-13-2025 Referral to service [facility] Start: 04-13-2025 [facility] Start: 04-13-2025 Verification routine [facility] Start: 04-13-2025 Hospital admission, emergency, from emergency room, medical nature [facility] Start: 04-13-2025 Admission procedure [facility] Start: 04-13-2025 [facility] Start: 04-13-2025 [facility] Start: 04-13-2025 Bacteria identified in Urine by Culture Urine Culture [facility] Start: 04-13-2025 Patient referral to dietitian [facility] Start: 04-13-2025 [facility] Start: 02-26-2024 Bacteria identified in Urine by Culture Urine Culture [facility] Start: 02-26-2024 End: 02-26-2024 [facility] Start: 11-13-2017 End: 11-13-2017 Appointment Appointment [facility] Work Phone: Start: 05-02-2017 End: 05-02-2017 Appointment Appointment [facility] Work Phone: Start: 05-02-2017 End: 05-02-2017 Follow Up Appt 6 months Follow Up Appt 6 months [facility] Work Phone: Start: 05-02-2017 End: 05-02-2017 MMM MMM [facility] Work Phone: Start: 10-13-2016 End: 10-13-2016 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 Microscopic observat ion [Identifier] in Body fluid by Cyto stain [facility] Patient Education UTIs Understan ding ED Pyelonephritis, Female (Adult) [facility] Work Phone: Patient referral [facility] Work Phone: Urine culture [facility] Immunizations Immunization Date Immunization Notes Care Provider [facility] 11-08-2024 influenza, high dose seasonal, preservative-free Dr. May Avitia MD Work Phone: [facility] 11-08-2024 Pfizer Covid-19 (Comirnaty) Dr. May Avitia MD Work Phone: [facility] 02-17-2021 Covid (Moderna) [facility] 01-20-2021 Covid (Moderna) [facility] 08-07-2017 Influenza virus vaccine [facility] 08-29-2016 Influenza virus vaccine [facility] 02-26-2014 pneumococcal vaccine , unspecified formulation [facility] 09-10-2013 Influenza virus vaccine [facility] 02-09-2004 pneumococcal vaccine , unspecified formulation [facility] Payers Date Payer Category Payer Self-pay [id number] 2016 Unknown [id number] 2002 Medicare [id number] Unknown [id number] 2.16.8 [id number] Unknown [id number] 2.16.8 [id number] Unknown [id number] 2.16.8 [id number] Unknown [id number] 2.16.8 [id number] Unknown [id number] 2.16.8 [id number] Unknown [id number] 2.16.8 [id number] Unknown [id number] 2.16.8 [id number] Unknown [id number] 2.16.8 [id number] Unknown [id number] 2.16.8 [id number] Social History Date Type Detail Facility Start: 02-10-2022 End: 02-25-2024 Tobacco smoking status [facility] Unknown if ever smoked [facility] Start: 1935 Sex Assigned At Female [facility] Start: 01-05-2018 Occasional [facility] Start: 07-13-2017 None [facility] Start: 07-13-2017 Alone [facility] Start: 01-05-2018 Non-smoker [facility] Start: 04-13-2025 End: 06-27-2025 Tobacco smoking status NHIS Ex-smoker (finding) [facility] Not [facility] NEGATED: Highlighted row Not [facility] Medical Equipment Procedure Code Equipment Code Equipment Origin al Text Equipment Identifier Dates Robot-assisted simple nephrectomy LORETTA REYNOLDS [employer] Start: 06-27-2025 Robot-assisted simple nephrectomy LORETTA REYNOLDS [employer] FDA Start: 06-27-2025 Robot-assisted simple nephrectomy LORETTA REYNOLDS [employer] FDA Start: 06-27-2025 Robot-assisted simple nephrectomy LORETTA REYNOLDS [employer] FDA Start: 06-27-2025 Robot-assisted simple nephrectomy LORETTA REYNOLDS LG FDA Start: 06-27-2025 Robot-assisted simple nephrectomy CLIP,SCOOTERROLA BLAND TATI FDA Start: 06-27-2025 Goals Date Patient Goal Desired Activity /State Functional Status Date Assessment Result Facility 06-29-2025 Functional status Ambulates [facility] Work Phone: 06-28-2025 Functional status Tolerates Activity Well [facility] Work Phone: 06-13-2025 Functional status Ambulates;Bathroom Priv ilege [facility] Work Phone: 04-15-2025 Functional status Bedrest [facility] Work Phone: Mental Status Date Assessment Result Facility 06-29-2025 Cognitive function Voice/Name [facility] Work Phone: 06-13-2025 Cognitive function Level Of Consciousness Sedated [facility] Work Phone: 06-13-2025 Cognitive function Voice/Name [facility] Work Phone: 04-15-2025 Cognitive function Voice/Name [facility] Work Phone: 04-13-2025 Cognitive function Level Of Cons ciousness Awake;Alert;Appropriate [facility] Work Phone: Clinical Notes 12-21-2020 to 06-29-2025 Note Date & Type Note Facility 06-29-2025 Discharge summary [facility] 06-29-2025 Discharge summary Note Date/Time June 29, 2025 9:02am [facility] Medical Records Department [address] [place] [address] Discharge Summary 06/29/25 0901 MR#: [id number] Acct: [id number] Name: ALLIE MARIE Rep #:[id number] : 1935 89 From: Akhil Leslie MD PCP: Dr. Angel Juan MD Status :ADM IN Location: [id number] Providers Date of Admission: 06/27/25 Date of Discharge: 06/29/25 Primary Care Physician: Dr. Angel Juan MD Reason For Visit: ROBOTIC Nephrectomy, Ureterectomy/EORDER LAB Medications at Discharge Home Medications aspirin 81 mg chewable tablet 81 mg PO DAILY@0800 health maintenance 07/13/17 Held on 06/27/25. Instructions: Resume on 07/11/25. clopidogrel 75 mg tablet 75 mg PO DAILY blood thinner 07/13/17 Held on 06/27/25. Instructions: Resume on 07/11/25. losartan 50 mg tablet 50 mg PO DAILY blood pressure #90 tabs 10/27/21 levothyroxine 25 mcg tablet 50 mcg PO DAILY thyroid 04/13/25 metoprolol succinate 100 mg tablet,extended release 24 hr 100 mg PO DAILY blood pressure 04/13/25 rosuvastatin 40 mg tablet 40 mg PO DAILY cholesterol 04/13/25 albuterol sulfate 90 mcg/actuation breath activated powder inhaler 2 inh inhalation Q6H PRN shortness of breath or wheezing 06/18/25 ciprofloxacin HCl 250 mg tablet 250 mg PO DAILY #10 tabs 06/27/25 docusate sodium 100 mg capsule (Colace) 100 mg PO BID #20 caps 06/27/25 oxycodone 5 mg tablet 5 mg PO Q6H PRN pain 7 days #10 tabs 06/27/25 Hospital Course Operations - (Laparoscopic right nephro ureterectomy) Summary of Care Provided Minutes Spent on Discharge: 10 Weight / BMI Weight Weight: 57.508 kg Body Mass Index (BMI) 23.1 ABG / Lab / Microbiology Data 06/29/25 04:00 06/29/25 04:00 Laboratory: Laboratory Results - last 24 hr 06/28/25 10:20: Blood Type O POSITIVE, Antibody Screen NEGATIVE, Crossmatch See Detail 06/29/25 04:00: WBC 11.5 H, RBC 3.23 L, Hgb 9.7 L, Hct 28.5 L, MCV 88.2 D, MCH 30.0, MCHC 34.0, RDW Std Deviation 49.4 H, RDW Coeff of Krystyna 15.4 H, Plt Count 130 L, MPV 10.2, Immature Gran % (Auto) 0.800, Neut % (Auto) 73.6 H, Lymph % (Auto) 15.1 L, [place] % (Auto) 9.1, Eos % (Auto) 1.0, Baso % (Auto) 0.4, Absolute Neuts (auto) 8.5 H, Absolute Lymphs (auto) 1.74, Nucleated RBC % 0, Sodium 136, Potassium 4.1, Chloride 111 H, Carbon Dioxide 14.6 L, Anion Gap 10, BUN 31 H, Creatinine 2.41 H, Estim Creat Clear Calc 13.01 L, Est GFR (MDRD) Non-Af 19 L, BUN/Creatinine Ratio 12.9, Glucose 118 H, Calcium 7.1 L D/C Instructions Call your doctor if your incision/area has: Continuous Slow Oozing and Sudden Increased Bleeding Call your doctor if you observe: Fever of 101 or Higher, Inability to have a bowel movement and Uncontrolled pain Cleanse incision/area with: Soap & Water Catheter: [place] to leg bag Drain: [place] DC O2, CPAP, BIPAP Needs Home O2 Discharge instructions: No Please Follow Up With: Akhil Leslie MD When: Call [phone] for an appointment 10 days Meaningful Use Info Meaningful Use Meaningful Use Diagnoses (Choose all that apply): None applicable Discharge Plan Admission Admit Date/Time: 06/28/25 09:43 Primary Reason for Your Visit: Robotic right radical nephro ureterectomy Attending Provider: Akhil Leslie Primary Care Provider: Angel Juan Consulting Providers: Viet Srinivasan Discharge Orders/Prescriptions Prescriptions: New docusate sodium [Colace] 100 mg capsule 100 mg PO BID Qty: 20 0RF ciprofloxacin HCl 250 mg tablet 250 mg PO DAILY Qty: 10 0RF oxycodone 5 mg tablet 5 mg PO Q6H PRN (Reason: pain) 7 Days Qty: 10 0RF Continued albuterol sulfate 90 mcg/actuation aerosol powdr breath activated 2 inh inhalation Q6H PRN (Reason: shortness of breath or wheezing) metoprolol succinate 100 mg tablet extended release 24 hr 100 mg PO DAILY levothyroxine 25 mcg tablet 50 mcg PO DAILY rosuvastatin 40 mg tablet 40 mg PO DAILY losartan 50 mg tablet 50 mg PO DAILY Qty: 90 3RF Held clopidogrel 75 MG tablet 75 mg PO DAILY Hold Instructions: Resume on 07/11/25. aspirin 81 MG tablet,chewable 81 mg PO DAILY@0800 Hold Instructions: Resume on 07/11/25. Discontinued ibuprofen 400 mg tablet 400 mg PO Q6H PRN (Reason: pain) Qty: 14 0RF Referrals / Follow Up: Angel Juan MD [Primary Care Provider] - Akhil Leslie MD [Med Staff - Active Staff] - 06/29/25 09 <Electronically signed by Akhil Leslie MD> Cosigner Signature (if applicable): CC: Dr. Angel Juan MD; Dr. Akhil Leslie MD~ Signed [facility] Work Phone: 1(830) 223-738708-03-2025 Discharge summary [facility] Medical Records Department [address] [place] [address] Discharge Summary 06/29/25 09 MR#: [id number] Acct: [id number] Name: ALLIE MARIE Rep #:[id number] : 1935 89 From: Ahkil Leslie MD PCP: Dr. Angel Juan MD Status :ADM IN [place] [facility] [place] [id number] Providers Date of Admission: 06/27/25 Date of Discharge: 06/29/25 Primary Care Physician: Dr. Angel Juan MD Reason For Visit: ROBOTIC Nephrectomy, Ureterectomy/EORDER LAB Medications at Discharge Home Medications aspirin 81 mg chewable tablet 81 mg PO DAILY@0800 health maintenance 07/13/17 Held on 06/27/25. Instructions: Resume on 07/11/25. clopidogrel 75 mg tablet 75 mg PO DAILY blood thinner 07/13/17 Held on 06/27/25. Instructions: Resume on 07/11/25. losartan 50 mg tablet 50 mg PO DAILY blood pressure #90 tabs 10/27/21 levothyroxine 25 mcg tablet 50 mcg PO DAILY thyroid 04/13/25 metoprolol succinate 100 mg tablet,extended release 24 hr 100 mg PO DAILY blood pressure 04/13/25 rosuvastatin 40 mg tablet 40 mg PO DAILY cholesterol 04/13/25 albuterol sulfate 90 mcg/actuation breath activated powder inhaler 2 inh inhalation Q6H PRN shortness of breath or wheezing 06/18/25 ciprofloxacin HCl 250 mg tablet 250 mg PO DAILY #10 tabs 06/27/25 docusate sodium 100 mg capsule (Colace) 100 mg PO BID #20 caps 06/27/25 oxycodone 5 mg tablet 5 mg PO Q6H PRN pain 7 days #10 tabs 06/27/25 Hospital Course Operations - (Laparoscopic right nephro ureterectomy) Summary of Care Provided Minutes Spent on Discharge: 10 Weight / BMI Weight Weight: 57.508 kg Body Mass Index (BMI) 23.1 ABG / Lab / Microbiology Data 06/29/25 04:00 06/29/25 04:00 Laboratory: Laboratory Results - last 24 hr 06/28/25 10:20: Blood Type O POSITIVE, Antibody Screen NEGATIVE, Crossmatch See Detail 06/29/25 04:00: WBC 11.5 H, RBC 3.23 L, Hgb 9.7 L, Hct 28.5 L, MCV 88.2 D, MCH 30.0, MCHC 34.0, RDWStd Deviation 49.4 H, RDW Coeff of Krystyna 15.4 H, Plt Count 130 L, MPV 10.2, Immature Gran % (Auto) 0.800, Neut % (Auto) 73.6 H, Lymph % (Auto) 15.1 L, [place] % (Auto) 9.1, Eos % (Auto) 1.0, Baso % (Auto)0.4, Absolute Neuts (auto) 8.5 H, Absolute Lymphs (auto) 1.74, Nucleated RBC % 0, Sodium 136, Potass ium 4.1, Chloride 111 H, Carbon Dioxide 14.6 L, Anion Gap 10, BUN 31 H, Creatinine 2.41 H, Estim Creat Clear Calc 13.01 L, Est GFR (MDRD) Non-Af 19 L, BUN/Creatinine Ratio 12.9, Glucose 118 H, Calcium 7.1 L D/C Instructions Call your doctor if your incision/area has: Continuous Slow Oozing and Sudden Increased Bleeding Call your doctor if you observe: Fever of 101 or Higher, Inability to have a bowel movement and Uncontrolled pain Cleanse incision/area with: Soap & Water Catheter: Macias to leg bag Drain: [place] DC O2, CPAP, BIPAP Needs Home O2 Discharge instructions: No Please Follow Up With: Akhil Leslie MD When: Call [phone] for an appointment 10 days Meaningful Use Info Meaningful Use Meaningful Use Diagnoses (Choose all that apply): None applicable Discharge Plan Admission Admit Date/Time: 06/28/25 09:43 Primary Reason for Your Visit: Robotic right radical nephro ureterectomy Attending Provider: Akhil Leslie Primary Care Provider: Angel Juan Consulting Providers: Viet Srinivasan Discharge Orders/Prescriptions Prescriptions: New docusate sodium [Colace] 100 mg capsule 100 mg PO BID Qty: 20 0RF ciprofloxacin HCl 250 mg tablet 250 mg PO DAILY Qty: 10 0RF oxycodone 5 mg tablet 5 mg PO Q6H PRN (Reason: pain) 7 Days Qty: 10 0RF Continued albuterol sulfate 90 mcg/actuation aerosol powdr breath activated 2 inh inhalation Q6H PRN (Reason: shortness of breath or wheezing) metoprolol succinate 100 mg tablet extended release 24 hr 100 mg PO DAILY levothyroxine 25 mcg tablet 50 mcg PO DAILY rosuvastatin 40 mg tablet 40 mg PO DAILY losartan 50 mg tablet 50 mg PO DAILY Qty: 90 3RF Held clopidogrel 75 MG tablet 75 mg PO DAILY Hold Instructions: Resume on 07/11/25. aspirin 81 MG tablet,chewable 81 mg PO DAILY@0800 Hold Instructions: Resume on 07/11/25. Discontinued ibuprofen 400 mg tablet 400 mg PO Q6H PRN (Reason: pain) Qty: 14 0RF Referrals / Follow Up: Angel Juan MD [Primary Care Provider] - Akhil Leslie MD [Med Staff - Active Staff] - 06/29/25 0902 Cosigner Signature (if applicable): CC: Dr. Angel Juan MD; Dr. Akhil Leslie MD~ Signed [facility]08-03-2025 [facility] Medical Records Department [address] [place] [address] Discharge Summary 06/29/25 0901 MR#: [id number] Acct: [id number] Name: ALLIE MARIE Rep #: [id number] : 1935 89 From: Akhil Leslie MD PCP: Dr. Angel Juan MD Status:ADM [id number] Prov[facility] Date of Admission: 06/27/25 Date of Discharge: 06/29/25 Primary Care Physician: Dr. Angel Juan MD Reason For Visit: ROBOTIC Nephrectomy, Ureterectomy/EORDER LAB Medications at Discharge Home Medications aspirin 81 mg chewable tablet 81 mg PO DAILY@0800 health maintenance 07/13/17 Held on 06/27/25. Instructions: Resume on 07/11/25. clopidogrel 75 mg tablet 75 mg PO DAILY blood thinner 07/13/17 Held on 06/27/25. Instructions: Resume on 07/11/25. losartan 50 mg tablet 50 mg PO DAILY blood pressure #90 tabs 10/27/21 levothyroxine 25 mcg tablet 50 mcg PO DAILY thyroid 04/13/25 metoprolol succinate 100 mg tablet,extended release 24 hr 100 mg PO DAILY blood pressure 04/13/25 rosuvastatin 40 mg tablet 40 mg PO DAILY cholesterol 04/13/25 albuterol sulfate 90 mcg/actuation breath activated powder inhaler 2 inh inhalation Q6H PRN shortness of breath or wheezing 06/18/25 ciprofloxacin HCl 250 mg tablet 250 mg PO DAILY #10 tabs 06/27/25 docusate sodium 100 mg capsule (Colace) 100 mg PO BID #20 caps 06/27/25 oxycodone 5 mg tablet 5 mg PO Q6H PRN pain 7 days #10 tabs 06/27/25 Hospital Course Operations - (Laparoscopic right nephro ureterectomy) Summary of Care Provided Minutes Spent on Discharge: 10 Weight / BMI Weight Weight: 57.508 kg Body Mass Index (BMI) 23.1 ABG / Lab / Microbiology Data 06/29/25 04:00 06/29/25 04:00 Laboratory: Laboratory Results - last 24 hr 06/28/25 10:20: Blood Type O POSITIVE, Antibody Screen NEGATIVE, Crossmatch See Detail 06/29/25 04:00: WBC 11.5 H, RBC 3.23 L, Hgb 9.7 L, Hct 28.5 L, MCV 88.2 D, MCH 30.0, MCHC 34.0, RDW Std Deviation 49.4 H, RDW Coeff of Krystyna 15.4 H, Plt Count 130 L, MPV 10.2, Immature Gran % (Auto) 0.800, Neut % (Auto) 73.6 H, Lymph % (Auto) 15.1 L, [place] % (Auto) 9.1, Eos % (Auto) 1.0, Baso % (Auto) 0.4, Absolute Neuts (auto) 8.5 H, Absolute Lymphs (auto) 1.74, Nucleated RBC % 0, Sodium 136, Potassium 4.1, Chloride 111 H, Carbon Dioxide 14.6 L, Anion Gap 10, BUN 31 H, Creatinine 2.41 H, E stim Creat Clear Calc 13.01 L, Est GFR (MDRD) Non-Af 19 L, BUN/Creatinine Ratio 12.9, Glucose 118 H, Calcium 7.1 L D/C Instructions Call your doctor if your incision/area has: Continuous Slow Oozing and Sudden Increased Bleeding Call your doctor if you observe: Fever of 101 or Higher, Inability to have a bowel movement and Uncontrolled pain Cleanse incision/area with: Soap Water Catheter: Macias to leg bag Drain: [place] DC O2, CPAP, BIPAP Needs Home O2 Discharge instructions: No Please Follow Up With: Akhil Leslie MD When: Call [phone] for an appointment 10 days Meaningful Use Info Meaningful Use Meaningful Use Diagnoses (Choose all that apply): None applicable Discharge Plan Admission Admit Date/Time: 06/28/25 09:43 Primary Reason for Your Visit: Robotic right radical nephro ureterectomy Attending Provider: Akhil Leslie Primary Care Provider: Angel Juan Consulting Providers: Viet Srinivasan Discharge Orders/Prescriptions Prescriptions: New docusate sodium [Colace] 100 mg capsule 100 mg PO BID Qty: 20 0RF ciprofloxacin HCl 250 mg tablet 250 mg PO DAILY Qty: 10 0RF oxycodone 5 mg tablet 5 mg PO Q6H PRN (Reason: pain) 7 Days Qty: 10 0RF Continued albuterol sulfate 90 mcg/actuation aerosol powdr breath activated 2 inh inhalation Q6H PRN (Reason: shortness of breath or wheezing) metoprolol succinate 100 mg tablet extended release 24 hr 100 mg PO DAILY levothyroxine 25 mcg tablet 50 mcg PO DAILY rosuvastatin 40 mg tablet 40 mg PO DAILY losartan 50 mg tablet 50 mg PO DAILY Qty: 90 3RF Held clopidogrel 75 MG tablet 75 mg PO DAILY Hold Instructions: Resume on 07/11/25. aspirin 81 MG tablet,chewable 81 mg PO DAILY@0800 Hold Instructions: Resume on 07/11/25. Discontinued ibuprofen 400 mg tablet 400 mg PO Q6H PRN (Reason: pain) Qty: 14 0RF Referrals / Follow Up: Angel Juan MD [Primary Care Provider] - Akhil Leslie MD [Med Staff - Active Staff] - 06/29/25901 Cosigner Signature (if applicable): CC: Dr. Angel Juan MD; [facility] Akhil Leslie [facility] Progress note Author Akhil Leslie [facility] Note Date/Time June 28, 2025 9:3 4am [facility] Medical Records Department [address] [place] [address] Progress Note - Urology 06/28/25932 MR#: [id number] Acct: [id number] Name: ALLIE MARIE Rep #:[id number] : 1935 89 From: Akhil Leslie MD PCP: Dr. Angel Juan MD Status :ADM NYASIA [place] [facility] [id number] 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 actually tolerating her hemoglobin quite well but we will give her 2 units of blood keep the Macias in place should go home with the Macias advance to regular diet patient looks well Objective Data Objective Data Vital Signs: Vital Signs Temp Pulse Resp BP Pulse Ox O2 Del Method O2 Flow Rate 98.1 F 69 18 142/49 H 94 Room Air 6 06/28/25 08:08 06/28/25 08:15 06/28/25 08:08 06/28/25 08:08 06/28/25 08:08 06/28/25 08:08 06/27/25 10:39 Oxygen Flow Rate (L/min) 6 Oxygen Delivery Method Room Air Weight: 57.508 kg Body Mass Index (BMI) 23.1 Intake & Output: Intake and Output for Last 24 Hours 06/26/25 06/27/25 06/28/25 23:59 23:59 23:59 Intake Total 2721.67 / 2921.67 1808.33 / 1808.33 Output Total 520 / 670 200 / 200 Balance 2201.67 / 2251.67 1608.33 / 1608.33 Lab / Micro Data 06/28/25 05:25 06/28/25 05:25 Labs: Laboratory Results - last 24 hr 06/28/25 05:25: WBC 15.9 H, RBC 2.04 L, Hgb 6.4 L, Hct 19.3 L, MCV 94.6, MCH 31.4, MCHC 33.2, RDW Std Deviation 44.2 H, RDW Coeff of Krystyna 12.8, Plt Count 177,MPV 10.3, Immature Gran % (Auto) 0.700, Neut % (Auto) 86.4 H, Lymph % (Auto) 4.9L, [place] % (Auto) 7.9, Eos % (Auto) 0.0, Baso % (Auto) 0.1, Absolute Neuts (auto)13.8 H, Absolute Lymphs (auto) 0.78 L, Nucleated RBC % 0, Sodium 137, Potassium 4.6, Chloride 110 H, Carbon Dioxide 15.3 L, Anion Gap 12, BUN 27 H, Creatinine 2.38 H, Estim Creat Clear Calc 13.17 L, Est GFR (MDRD) Non-Af 19 L, BUN/Creatinine Ratio 11.4, Glucose 132 H, Calcium 7.6 06/28/25 0934 <Electronically signed by Akhil Leslie MD> Cosigner Signature (if applicable): CC: ~ Signed [facility] Work Phone: 1(586) 616-966008-02-2025 Progress note [facility] Medical Records Department [address] [place] [address] Progress Note - Urology 06/28/25 0933 MR#: [id number] Acct: [id number] Name: ALLIE MARIE Rep #:[id number] : 1935 89 From: Akhil Leslie MD PCP: Dr. Angel Juan MD Status :ADM NYASIA Location: [place] [address] 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 hemoglobin is low thismorning is probably acute blood loss anemia she also did come back very anemic from chronic bleeding actually tolerating her hemoglobin quite well but we will give her 2 units of blood keep the Foleyin place should go home with the Macias advance to regular diet patient looks well Objective Data Objective Data Vital Signs: Vital Signs Temp Pulse Resp BP Pulse Ox O2 Del Method O2 Flow Rate 98.1 F 69 18 142/49 H 94 Room Air 6 06/28/25 08:08 06/28/25 08:15 06/28/25 08:08 06/28/25 08:08 06/28/25 08:08 06/28/25 08:08 06/27/25 10:39 Oxygen Flow Rate (L/min) 6 Oxygen Delivery Method Room Air Weight: 57.508 kg Body Mass Index (BMI) 23.1 Intake & Output: Intake and Output for Last 24 Hours 06/26/25 06/27/25 06/28/25 23:59 23:59 23:59 Intake Total 2721.67 / 2921.67 1808.33 / 1808.33 Output Total 520 / 670 200 / 200 Balance 2201.67 / 2251.67 1608.33 / 1608.33 Lab / Micro Data 06/28/25 05:25 06/28/25 05:25 Labs: Laboratory Results - last 24 hr 06/28/25 05:25: WBC 15.9 H, RBC 2.04 L, Hgb 6.4 L, Hct 19.3 L, MCV 94.6, MCH 31.4, MCHC 33.2, RDW Std Deviation 44.2 H, RDW Coeff of Krystyna 12.8, Plt Count 177,MPV 10.3, Immature Gran % (Auto) 0.700, Neut % (Auto) 86.4 H, Lymph % (Auto) 4.9L, [place] % (Auto) 7.9, Eos % (Auto) 0.0, Baso % (Auto) 0.1, Absolute Neuts (auto)13.8 H, Absolute Lymphs (auto) 0.78 L, Nucleated RBC % 0, Sodium 137, Potassium 4.6, Chloride 110 H, Carbon Dioxide 15.3 L, Anion Gap 12, BUN 27 H, Creatinine 2.38 H, Estim Creat Clear Calc 13.17 L, Est GFR (MDRD) Non-Af 19 L, BUN/Creatinine Ratio 11.4, Glucose 132 H, Calcium 7.6 06/28/25 0934 Cosigner Signature (if applicable): CC: ~ Signed [facility]08-01-2025 Consult note Author Gisela Mccarthy [facility] Note Date/Time June 27, 2025 10: 39am [facility] Medical Records Department [address] [place] [address] Anesthesia Postop Eval I 06/27/25 1038 MR#: [id number] Acct: [id number] Name: ALLIE MARIE Rep #:[id number] : 1935 89 From: Gisela jesus CRNA PCP: Dr. Angel Juan MD Status :ADM NYASIA Y Race: C Location: [place] [address] Anesthesia: Postop Eval I Current Vital Signs Temperature: 97 F Pulse Rate: 64 Blood Pressure: 171/87 Respiratory Rate: 16 Pulse Ox: 100 Oxygen Delivery Method: Simple Mask Oxygen Flow Rate (L/min): 6 Assessment Airway patent: Yes Spontaneous unlabored respirations: Yes Mental status: Awake and Calm nausea: No Vomiting: No Anesthesia Complication: No Fluid Hydration Crystalloid volume administer (ml): 1,500 Total IV fluid infused: 1,500 Progress Note Anesthesia document: Postop Eval 1 completed: Yes 06/27/25 1039 <Electronically signed by Gisela wasserman CRNA> Date _ Gisela Mccarthy CRNA Cosigner Signature: Date CC: ~ Signed [facility] Work Phone: 1(223) 463-703608-01-2025 Discharge summary Author Akhil Leslie [facility] Note Date/Time June 29, 2025 1:2 9pm [facility] Medical Records Department [address] [place] [address] Instructions for Home/Discharge Instructions 06/27/25 1026 MR#: [id number] Acct: [id number] Name: ALLIE MARIE Rep #:[id number] : 1935 89 From: Akhil Leslie MD PCP: Dr. Angel Juan MD Status :ADM IN Discharge Instructions DC O2, CPAP, BIPAP needs Home O2 Discharge instructions: No Dressing / Incision Discharge Activity: Return to Normal Activity and May Not Drive (while taking narcotic pain medications.) Dressing / Incision Call your doctor if your incision/area has: Continuous Slow Oozing and Sudden Increased Bleeding Call your doctor if you observe: Fever of 101 or Higher, Inability to have a bowel movement and Uncontrolled pain Cleanse incision/area with: Soap & Water Catheter: Macias to leg bag Drain: [place] Follow Up Care Please Follow Up With: Akhil Leslie MD When: Call [phone] for an appointment 10 days Test Results: Test results from this visit will be discussed in further detail at your follow- up appointment, if applicable. Discharge Plan Admission Admit Date/Time: 06/27/25 05:45 Primary Reason for Your Visit: Robotic right radical nephro ureterectomy Attending Provider: Akhil Leslie Primary Care Provider: Angel Juan Consulting Providers: Viet Srinivasan Discharge Orders/Prescriptions Prescriptions: New docusate sodium [Colace] 100 mg capsule 100 mg PO BID Qty: 20 0RF ciprofloxacin HCl 250 mg tablet 250 mg PO DAILY Qty: 10 0RF oxycodone 5 mg tablet 5 mg PO Q6H PRN (Reason: pain) 7 Days Qty: 10 0RF Continued albuterol sulfate 90 mcg/actuation aerosol powdr breath activated 2 inh inhalation Q6H PRN (Reason: shortness of breath or wheezing) metoprolol succinate 100 mg tablet extended release 24 hr 100 mg PO DAILY levothyroxine 25 mcg tablet 50 mcg PO DAILY rosuvastatin 40 mg tablet 40 mg PO DAILY losartan 50 mg tablet 50 mg PO DAILY Qty: 90 3RF Held clopidogrel 75 MG tablet 75 mg PO DAILY Hold Instructions: Resume on 07/11/25. aspirin 81 MG tablet,chewable 81 mg PO DAILY@0800 Hold Instructions: Resume on 07/11/25. Discontinued ibuprofen 400 mg tablet 400 mg PO Q6H PRN (Reason: pain) Qty: 14 0RF Referrals / Follow Up: Angel Juan MD [Primary Care Provider] - Akhil Leslie MD [Med Staff - Active Staff] - Disposition Disposition (needs filled in before D/C Order can be placed): Home, Self Care 06/27/25 1026<Electronically signed by Akhil Leslie MD>Akhil Leslie MD CC: Dr. Viet Srinivasan MD; Dr. Angel Juan MD ~ Signed [facility] Work Phone: 1(883) 721-568008-01-2025 Consult note [facility] Medical Records Department [address] [place] [address] Anesthesia Postop Eval I 06/27/25 1038 MR#: [id number] Acct: [id number] Name: ALLIE MARIE Rep #:[id number] : 1935 89 From: Gisela jesus MAINFRAME PROGRAMMER PCP: Dr. Angel Juan MD Status :ADM NYAISA Y Race: C Location: [place] [address] Anesthesia: Postop Eval I Current Vital Signs Temperature: 97 F Pulse Rate: 64 Blood Pressure: 171/87 Respiratory Rate: 16 Pulse Ox: 100 Oxygen Delivery Method: Simple Mask Oxygen Flow Rate (L/min): 6 Assessment Airway patent: Yes Spontaneous unlabored respirations: Yes Mental status: Awake and Calm nausea: No Vomiting: No Anesthesia Complication: No Fluid Hydration Crystalloid volume administer (ml): 1,500 Total IV fluid infused: 1,500 Progress Note Anesthesia document: Postop Eval 1 completed: Yes 06/27/25 1039 lisy MAINFRAME PROGRAMMER> Date _ Gisela Mccarthy MAINFRAME PROGRAMMER Cosigner Signature: Date CC: ~ Signed [facility]08-01-2025 Procedure note [facility] Medical Records Department [address] [place] [address] Operative Report 06/27/25 1026 MR#: [id number] Acct: [id number] Name: ALLIE MARIE Rep #:[id number] : 1935 89 From: Akhil Leslie MD PCP: Dr. 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 teacher: Yes [employer] [place]: Mele Taylor Tasks completed by assistant product manager: Opening, Closing, Opening & closing, Harvestinggrafts, Dissecting tissue, Removing tissue, Implanting device, Altering tissue, Insert Trochanter, Hemostasis: Clamp, Hemostasis: Tie, Hemostasis: Electrocautery, Trocar, Retracting and Other Type of Anesthesia: General RN Documented Start/Stop Times: Operation Date: 06/27/25 07:30 Case Time Into Pre-Op 06/27/25 06:00 Anesthesia Start 06/27/25 07:34 Into Room 06/27/25 07:34 Out of Pre-Op 06/27/25 07:34 Procedure Start 06/27/25 07:52 Procedure End 06/27/25 10:22 Procedure Start Time: 07:52 Procedure Stop Time: 10:27 Select all DRAINS/GRAFTS/IMPLANTS that apply: Drains Drain details: macias 20 fr Estimated Blood Loss: 400 cc Specimen collected: Yes Description of specimen(s) removed: Kidney and ureter complete Description of surgery: This is a 89-year-old female who started having heavy bleeding from a tumor coming from her right kidney she underwent ureteroscopy and 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 Patient was consented for nephroureterostomy in the right side. She was taken back to the operating room after induction of anesthesia she was placed for supine on the table we then placed in dorsolithotomy position the urethra vaginal area preppedand draped in usual fashion I then went into the bladder with a 24 Cymraes noncontinuous bipolar resectoscope I bent the loop to make a sharp tip I then identified the right ureteral orifice and then insert circumferentially I scarre d all the way around the right ureteral orifice in order to to dissect theureter off the bladder and went deep into the perivesical fat and circumstantially freed up the ureter from the bladder in order to allow removal of the ureter from the bladder later on. Once this was done then the ureter wascompletely freed from the bladder circumferentially and then I placed a 20 Cymraes catheter in the bladder the patient was then repositioned for a full flank approach to the kidney on the right side axillary roll was placed all pressure points were padded once she was a position in a modified flank positionthen Veress needle was planed to the peritoneal cavity we insufflated the peritoneal cavity CO2 gas then we put in our ports I put a right arm port cameraport left arm port and second left arm port an air seal port for the graduate research assistant. The robot was docked and then once he got inside the abdomen inspected he had a large floppy liver overcoming the kidney she had prior looks like a prior gallbladder was surgery in the past extensive he gins of the colon to the anterior abdominal wall this was all taken down sharply with careful dissection and then reflected the colon off the lateral sidewall and then dissected the waydown to the pelvis reflecting the colon until I got down to the pelvic brim thenat the pelvic brim dissected try to find the ureter the ureter was identified encounter little venous bleeding around the area of the pelvic brim this was controlled with a clip and cautery Wilden identified the ureter and got underneath the ureter and then dissected the ureter and cephaladand then inferiorly I dissect the ureter inferiorly all the way down to the bladder as I was gentlypulling up the ureter dissecting around and then the ureter came freesince it only been freed up from the lower part of the prior part of the surgerythe ureter came free and then we put a clip on theureter to prevent any extractleakage of urine from the ureter. After the ureter was freed from the bladder distally then I brought the ureter up we then docked to the other arm and then Iwas able to elevate and retract the ureter up in order to get underneath the Gerota's fat and the ureter as I riya vated up the kidney then I went inferior to the ureter and came across the gonadal vessel start bleeding little bit put 2 clips on this to control this bleeding and then came up and elevated the kidney up and then encountered the hilum carefully dissected out the artery in the renal vein and then the artery was taken with 2 clips up 1 clip down and transected and then the vein was taken with 2 clips down 1 clip up after transecting the artery and the vein then the coag was turned up and then I dissected the tail of the kidney off the liver and then dissected the kidney fatall the way up to the top part of the kidney and then dissected the kidney off the lateral wall to free of the kidney completely. We then undocked the robot we placed the 15 mm Endo Catch bag through our lower port we put the specimen inthe Endo Catch bag close the backup remove the port extended the incision and then opened up the incision to the lateral flank muscles and then next extractedthe kidney through the small incision I then inspected there was a small bleedercoming from underneath the rectus muscle this was cauterized and controlled thenafter this was controlled then I closed the fascia with a running0 Vicryl we then went back in the abdomen with laparoscope and suction irrigated show and weirrigated extensively checked for bleeding there was no active bleeding and thenwe closed the 1012 AirSeal port with a Patrick Stahl stitch and then removed all the trocars under direct visualization no bleeding from any of the trocars desufflated all the gas of the abdomen and removed all the trocars all the incisions were then closed with subcuticular stitches patient anesthetic was reversed taken back to the PACU in stable condition with Macias catheter in place. Surgical Findings: The ureter and kidney removed completely Complications Complications: No Admit VTE Documentation VTE Present on Admission: No VTE Mechan Device Prophylaxis: SCD's VTE Pharm Prophylaxis ordered?: No 06/27/25 1033 Cosigner Signature (if applicable): CC: Dr. Viet Srinivasan MD; Dr. Angel Juan MD; Dr. Akhil Leslie MD~ Signed [facility]08-01-2025 Consult note Author Viet [facility] Note Date/Time June 27, 2025 7:0 5am [facility] Medical Records Department [address] [facility] [address] Pre-Anesthesia Evaluation 06/27/25 0657 MR#: [id number] Acct: [id number] Name: ALLIE MARIE Rep #:[id number] : 1935 89 From: Viet Srinivasan MD PCP: Dr. Angel Juan MD Status :ADM IN Y Race: C Location: [place] [address] ASA Classification* ASA Classification ASA Classification: 3 [...] Patient and Chart Anesthesia Focused Assessment* Temperature: 98 F Pulse Rate: 61 Blood Pressure: 159/54 Respiratory Rate: 16 Pulse Ox: 100 Oxygen Delivery Method: Room Air Airway Assessment Mouth opens: >3 cm Mallampati Score: IV Teeth Condition: Caps/Crowns (Patient has a couple crowns upper molars. They are tight.) Neck Range of motion (ROM): Limited ROM (Slight Decrease) Labs Anesthesia Preop lab: CBC WBC 6.8 K/mm3 (4.4-11.0) 06/23/25 16:39 06/23/25 RBC 3.17 M/mm3 (4.2-5.4) L 06/23/25 16:39 06/23/25 Hgb 9.7 g/dL (12.0-15.0) L 06/23/25 16:39 06/23/25 Hct 30.3 % (37-47) L 06/23/25 16:39 06/23/25 Plt Count 240 K/mm3 (150-450) 06/23/25 16:39 06/23/25 CHEMISTRY Potassium 4.3 mmol/L (3.3-5.1) 04/14/25 05:39 [...] 07/21 Pre-Assessment Diagnosis/Proposed Procedure Planned Operative Procedure(s): lap nephroureterectomy right TURB Anesthesia History Anesthesia History - increment manager: Anesthesia History - increment manager Hx Hospitalization Yes: SYNCOPE/SEVERE 06/18/25 08:24 DEHYDRATION AND UTI Any Problems With Anesthesia No 06/18/25 08:24 Cholinesterase deficiency No 06/18/25 08:24 You/Your Family Experience No 06/18/25 08:24 fever (hyperthermia) with Relationship Recent Exposure to Contagious No 06/27/25 06:22 Disease Does patient have nerve No 06/18/25 08:24 stimulator Patient instructed to have device shut off --Does patient have Pacemaker No 06/27/25 06:22 or ICD? When Was Last Pacemaker Check QUESTION #4 FULL TEXT: You/Your Family Experience fever (hyperthermia) with Anesthesia Last Oral Intake Last Oral intake: Last Oral Intake NPO since 20:00 06/27/25 06:22 Meds taken in AM with sips of Yes 06/27/25 06:22 water? Meds patient instructed to take am of surgery Any additional information?: Yes Meds taken in AM with sips of water?: Yes PONV PONV - increment manager: PONV - increment manager Female Yes 06/18/25 08:24 HX of Motion Sickness No 06/18/25 08:24 HX of N/V After Surgery No 06/18/25 08:24 Non-Smoker Yes 06/18/25 08:24 Duration of Surgery greater Yes 06/18/25 08:24 than 60 minutes Number of Risk Factors 3 06/18/25 08:24 PONV Score Moderate Risk 06/18/25 08:24 Height & Weight Height & Weight: Anesthesia: Height & Weight Height 5 ft 2 in 06/27/25 06:22 Weight: 51.8 kg 06/27/25 06:22 Body Mass Index (BMI) 20.9 06/27/25 06:22 Respiratory Assessment Respiratory Assessment - increment manager: Respiratory Tract Infection Hx - increment manager Hx Respiratory Tract Infection No 06/18/25 08:24 STOP Sleep Apnea STOP Sleep Apnea - increment manager: STOP Sleep Apnea - increment manager Hx Hypertension Yes: CONTROLLED WITH MEDS 06/18/25 [...] Tobacco Use History Tobacco Use History - increment manager: Tobacco Use History - increment manager Tobacco Use Smoking Status Former smoker 06/18/25 08:24 Hx Tobacco Use No 06/18/25 08:24 Years Smoking Packs Smoked per Day Smoking Cessation Date was No - quit smoking greater 06/18/25 08:24 within the last 15 years than 15 years ago Hx Smoking Cessation Date Hx Smoking Cessation No 06/18/25 08:24 Counseling Hematologic Medial History Hematologic Hx - increment manager: Hematologic Medical Hx - manager medicaid Hx of Blood Transfusion No 06/18/25 08:24 Hx of Transfusion in last 3 No 06/18/25 08:24 Months Date of Last Transfusion (if within last 3 months) Ever experience any problems No 06/18/25 08:24 with transfusion(s)? Specify any problems Hx of Preganancy in last 3 No 06/18/25 08:24 Months Nurse Filling Out Transfusion DSCHRIBER 06/18/25 08:24 & Questions: Date: 06/18/25 06/18/25 08:24 Time: 08:26 06/18/25 08:24 Patient unable to answer at this time (ie. confused, unrespo /Reproduction History /Reproductive History - increment manager: /Reproductive Hx- increment manager Hx Now No 06/18/25 08:24 Gestational Age (in weeks): EDC: Hx Hx Para Hx Section SAB No 06/18/25 08:24 Active Medications Active Medications: Current Medications Generic Name Dose Route Start Last Admin Trade Name Freq PRN Reason Stop Dose Admin Cefazolin Sodium 2 gm/ Sodium 110 mls @ 200 mls/hr 06/27/25 07:30 Chloride IV 06/27/25 08:02 INTRAOP ONE Lactated Ringer's 1,000 mls @ 15 mls/hr 06/27/25 06:15 06/27/25 06:44 IV 15 mls/hr .Q48H ROJAS Administration PFSH [...] PO DAILY blood pressur e #90 10/27/21 06/27/25 05:15 Rx tabs levothyroxine 25 mcg tablet 50 mcg PO DAILY thyroid 06/27/25 05:15 History metoprolol succinate 100 mg 100 mg PO DAILY blood pres sure 04/13/25 06/27/25 05:15 History tablet,extended release 24 hr rosuvastatin 40 mg tablet 40 mg PO DAILY cholesterol 0 04/13/25 06/26/25 History ibuprofen 400 mg tablet 400 mg PO Q6H PRN pain #14 t abs 06/13/25 Unknown Rx albuterol sulfate 90 mcg/actuation 2 inh inhalation Q6 H PRN shortness 06/18/25 Unknown History breath activated powder inhaler of breath or wheezing Allergy/AdvReac Type Severity Reaction Status Date / Time hornet venom Allergy Anaphylaxis Verified 06/27/25 06:20 insect venom (yellow jacket) Allergy Anaphylaxis Verified 06/27/25 06:20 Penicillins Allergy Rash Verified 06/27/25 06:20 venom-wasp (Wasp Venom) Allergy Anaphylaxis Verified 06/27/25 06:20 Eogsejv-UGS-LgS Reductase AdvReac muscle Verified 06/27/25 06:20 Inhibitor (Fwumxbh-Dba-Pkg weakness Reductase Inhibitor) tramadol AdvReac Other Verified 06/27/25 06:20 Family History Mother , age 55 sudden cardiac CAD (coronary artery disease) Sudden cardiac Father , age 77 Lung cancer Sister carotid artery surgery CAD (coronary artery disease) Surgical History Hx of cystoscopy Hx of left cataract extraction Hx of [...] and no additional complaints, except as documented. 06/27/25 0705 <Electronically signed by Viet ledezma MD> Date _ Viet Srinivasan MD Cosigner Signature: Date CC: ~ Signed [facility] Work Phone: 1(517) 981-942808-01-2025 History and physical note Author Akhil Leslie [facility] Note Date/Time June 27, 2025 6:5 8am [facility] Medical Records Department [address] [place] [address] History & Physical Exam 06/27/25 0657 MR#: [id number] Acct: [id number] Name: ALLIE MARIE Rep #:[id number] : 1935 89 From: Akhil Leslie MD PCP: Dr. 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 [facility] Medical History (Updated 06/18/25 @ 08:31 by [...] PO DAILY blood pressur e #90 10/27/21 06/27/25 05:15 Rx tabs levothyroxine 25 mcg tablet 50 mcg PO DAILY thyroid 06/27/25 05:15 History metoprolol succinate 100 mg 100 mg PO DAILY blood pres sure 04/13/25 06/27/25 05:15 History tablet,extended release 24 hr rosuvastatin 40 mg tablet 40 mg PO DAILY cholesterol 0 04/13/25 06/26/25 History ibuprofen 400 mg tablet 400 mg PO Q6H PRN pain #14 t abs 06/13/25 Unknown Rx albuterol sulfate 90 mcg/actuation 2 inh inhalation Q6 H PRN shortness 06/18/25 Unknown History breath activated powder inhaler of breath or wheezing Allergy/AdvReac Type Severity Reaction Status Date / Time hornet venom Allergy Anaphylaxis Verified 06/27/25 06:20 insect venom (yellow jacket) Allergy Anaphylaxis Verified 06/27/25 06:20 Penicillins Allergy Rash Verified 06/27/25 06:20 venom-wasp (Wasp Venom) Allergy Anaphylaxis Verified 06/27/25 06:20 Tmoiwbq-DWY-CuG Reductase AdvReac muscle Verified 06/27/25 06:20 Inhibitor (Bmvzmin-Brw-Gha weakness Reductase Inhibitor) tramadol AdvReac Other Verified 06/27/25 06:20 Family History Mother , age 55 sudden cardiac CAD (coronary artery disease) Sudden cardiac Father , age 77 Lung cancer Sister carotid artery surgery CAD (coronary artery disease) Surgical History (Updated 06/18/25 @ 08:31 by Gogo Baker) Hx of cystoscopy Hx of left cataract extraction Hx of [...] do you feel safe at home: Yes Vital Signs Vital Signs Vital Signs: 06/27/25 06:22 06/27/25 06:22 Temperature 98 F Temperature Source Temporal Pulse Rate 61 Respiratory Rate 16 Respiratory Pattern Normal Blood Pressure 159/54 H Blood Pressure Mean 89 Blood Pressure Source Monitor Blood Pressure Position Semi-Fowlers Blood Pressure Location Right Arm Pulse Ox 100 Oxygen Delivery Method Room Air Weight Weight: 51.8 kg Body Mass Index (BMI) 20.9 Results Lab / Micro Data 06/23/25 16:39 06/27/25 0658 <Electronically signed by Akhil Leslie MD> Cosigner Signature (if applicable): CC: Dr. Angel Juan MD; Dr. Akhil Leslie MD~ Signed [facility] Work Phone: 1(305) 977-432308-01-2025 Consult note [facility] Medical Records Department [address] [place] [address] Pre-Anesthesia Evaluation 06/27/2557 MR#: [id number] Acct: [id number] Name: ALLIE MARIE Rep #:[id number] : 1935 89 From: Viet Srinivasan MD PCP: Dr. Angel Juan MD Status :ADM IN Y Race: C Location: [place] [address] ASA Classification* ASA Classification ASA Classification: 3 [...] Patient and Chart Anesthesia Focused Assessment* Temperature: 98 F Pulse Rate: 61 Blood Pressure: 159/54 Respiratory Rate: 16 Pulse Ox: 100 Oxygen Delivery Method: Room Air Airway Assessment Mouth opens: >3 cm Mallampati Score: IV Teeth Condition: Caps/Crowns (Patient has a couple crowns upper molars. They are tight.) Neck Range of motion (ROM): Limited ROM (Slight Decrease) Labs Anesthesia Preop lab: CBC WBC 6.8 K/mm3 (4.4-11.0) 06/23/25 16:39 06/23/25 RBC 3.17 M/mm3 (4.2-5.4) L 06/23/25 16:39 06/23/25 Hgb 9.7 g/dL (12.0-15.0) L 06/23/25 16:39 06/23/25 Hct 30.3 % (37-47) L 06/23/25 16:39 06/23/25 Plt Count 240 K/mm3 (150-450) 06/23/25 16:39 06/23/25 CHEMISTRY Potassium 4.3 mmol/L (3.3-5.1) 04/14/25 05:39 [...] 07/21 Pre-Assessment Diagnosis/Proposed Procedure Planned Operative Procedure(s): lap nephroureterectomy right TURB Anesthesia History Anesthesia History - increment manager: Anesthesia History - increment manager Hx Hospitalization Yes: SYNCOPE/SEVERE 06/18/25 08:24 DEHYDRATION AND UTI Any Problems With Anesthesia No 06/18/25 08:24 Cholinesterase deficiency No 06/18/25 08:24 You/Your Family Experience No 06/18/25 08:24 fever (hyperthermia) with Relationship Recent Exposure to Contagious No 06/27/25 06:22 Disease Does patient have nerve No 06/18/25 08:24 stimulator Patient instructed to have device shut off --Does patient have Pacemaker No 06/27/25 06:22 or ICD? When Was Last Pacemaker Check QUESTION #4 FULL TEXT: You/Your Family Experience fever (hyperthermia) with Anesthesia Last Oral Intake Last Oral intake: Last Oral Intake NPO since 20:00 06/27/25 06:22 Meds taken in AM with sips of Yes 06/27/25 06:22 water? Meds patient instructed to take am of surgery Any additional information?: Yes Meds taken in AM with sips of water?: Yes PONV PONV - increment manager: PONV - increment manager Female Yes 06/18/25 08:24 HX of Motion Sickness No 06/18/25 08:24 HX of N/V After Surgery No 06/18/25 08:24 Non-Smoker Yes 06/18/25 08:24 Duration of Surgery greater Yes 06/18/25 08:24 than 60 minutes Number of Risk Factors 3 06/18/25 08:24 PONV Score Moderate Risk 06/18/25 08:24 Height & Weight Height & Weight: Anesthesia: Height & Weight Height 5 ft 2 in 06/27/25 06:22 Weight: 51.8 kg 06/27/25 06:22 Body Mass Index (BMI) 20.9 06/27/25 06:22 Respiratory Assessment Respiratory Assessment - increment manager: Respiratory Tract Infection Hx - increment manager Hx Respiratory Tract Infection No 06/18/25 08:24 STOP Sleep Apnea STOP Sleep Apnea - increment manager: STOP Sleep Apnea - increment manager Hx Hypertension Yes: CONTROLLED WITH MEDS 06/18/25 [...] Tobacco Use History Tobacco Use History - increment manager: Tobacco Use History - increment manager Tobacco Use Smoking Status Former smoker 06/18/25 08:24 Hx Tobacco Use No 06/18/25 08:24 Years Smoking Packs Smoked per Day Smoking Cessation Date was No - quit smoking greater 06/18/25 08:24 within the last 15 years than 15 years ago Hx Smoking Cessation Date Hx Smoking Cessation No 06/18/25 08:24 Counseling Hematologic Medial History Hematologic Hx - increment manager: Hematologic Medical Hx - manager medicaid Hx of Blood Transfusion No 06/18/25 08:24 Hx of Transfusion in last 3 No 06/18/25 08:24 Months Date of Last Transfusion (if within last 3 months) Ever experience any problems No 06/18/25 08:24 with transfusion(s)? Specify any problems Hx of Preganancy in last 3 No 06/18/25 08:24 Months Nurse Filling Out Transfusion DSCHRIBER 06/18/25 08:24 & Questions: Date: 06/18/25 06/18/25 08:24 Time: 08:26 06/18/25 08:24 Patient unable to answer at this time (ie. confused, unrespo /Reproduction History /Reproductive History - increment manager: /Reproductive Hx- increment manager Hx Now No 06/18/25 08:24 Gestational Age (in weeks): EDC: Hx Hx Para Hx Section SAB No 06/18/25 08:24 Active Medications Active Medications: Current Medications Generic Name Dose Route Start Last Admin Trade Name Freq PRN Reason Stop Dose Admin Cefazolin Sodium 2 gm/ Sodium 110 mls @ 200 mls/hr 06/27/25 07:30 Chloride IV 06/27/25 08:02 INTRAOP ONE Lactated Ringer's 1,000 mls @ 15 mls/hr 06/27/25 06:15 06/27/25 06:44 IV 15 mls/hr .Q48H ROJAS Administration PFSH [...] PO DAILY blood pressur e #90 10/27/21 06/27/25 05:15 Rx tabs levothyroxine 25 mcg tablet 50 mcg PO DAILY thyroid 06/27/25 05:15 History metoprolol succinate 100 mg 100 mg PO DAILY blood pres sure 04/13/25 06/27/25 05:15 History tablet,extended release 24 hr rosuvastatin 40 mg tablet 40 mg PO DAILY cholesterol 0 04/13/25 06/26/25 History ibuprofen 400 mg tablet 400 mg PO Q6H PRN pain #14 t abs 06/13/25 Unknown Rx albuterol sulfate 90 mcg/actuation 2 inh inhalation Q6 H PRN shortness 06/18/25 Unknown History breath activated powder inhaler of breath or wheezing Allergy/AdvReac Type Severity Reaction Status Date / Time hornet venom Allergy Anaphylaxis Verified 06/27/25 06:20 insect venom (yellow jacket) Allergy Anaphylaxis Verified 06/27/25 06:20 Penicillins Allergy Rash Verified 06/27/25 06:20 venom-wasp (Wasp Venom) Allergy Anaphylaxis Verified 06/27/25 06:20 Hhgcifg-SNI-QzG Reductase AdvReac muscle Verified 06/27/25 06:20 Inhibitor (Ydojdou-Gnv-Dmy weakness Reductase Inhibitor) tramadol AdvReac Other Verified 06/27/25 06:20 Family History Mother , age 55 sudden cardiac CAD (coronary artery disease) Sudden cardiac Father , age 77 Lung cancer Sister carotid artery surgery CAD (coronary artery disease) Surgical History Hx of cystoscopy Hx of left cataract extraction Hx of [...] and no additional complaints, except as documented. 06/27/25 07 darien DAILY> Date _ Viet Srinivasan MD Cosigner Signature: Date CC: ~ Signed [facility]08-01-2025 History and physical note [facility] Medical Records Department [address] [place] [address] History & Physical Exam 06/27/25 0657 MR#: [id number] Acct: [id number] Name: ALLIE MARIE Rep #:[id number] : 1935 89 From: Akhil Leslie MD PCP: Dr. Angel Juan MD Status :ADM IN Location: 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 [facility] Medical History (Updated 06/18/25 @ 08:31 by [...] PO DAILY blood pressur e #90 10/27/21 06/27/25 05:15 Rx tabs levothyroxine 25 mcg tablet 50 mcg PO DAILY thyroid 06/27/25 05:15 History metoprolol succinate 100 mg 100 mg PO DAILY blood pres sure 04/13/25 06/27/25 05:15 History tablet,extended release 24 hr rosuvastatin 40 mg tablet 40 mg PO DAILY cholesterol 0 04/13/25 06/26/25 History ibuprofen 400 mg tablet 400 mg PO Q6H PRN pain #14 t abs 06/13/25 Unknown Rx albuterol sulfate 90 mcg/actuation 2 inh inhalation Q6 H PRN shortness 06/18/25 Unknown History breath activated powder inhaler of breath or wheezing Allergy/AdvReac Type Severity Reaction Status Date / Time hornet venom Allergy Anaphylaxis Verified 06/27/25 06:20 insect venom (yellow jacket) Allergy Anaphylaxis Verified 06/27/25 06:20 Penicillins Allergy Rash Verified 06/27/25 06:20 venom-wasp (Wasp Venom) Allergy Anaphylaxis Verified 06/27/25 06:20 Yllgnms-FWI-CsY Reductase AdvReac muscle Verified 06/27/25 06:20 Inhibitor (Hslqtza-Zpp-Dwi weakness Reductase Inhibitor) tramadol AdvReac Other Verified 06/27/25 06:20 Family History Mother , age 55 sudden cardiac CAD (coronary artery disease) Sudden cardiac Father , age 77 Lung cancer Sister carotid artery surgery CAD (coronary artery disease) Surgical History (Updated 06/18/25 @ 08:31 by Gogo Baker) Hx of cystoscopy Hx of left cataract extraction Hx of [...] do you feel safe at home: Yes Vital Signs Vital Signs Vital Signs: 06/27/25 06:22 06/27/25 06:22 Temperature 98 F Temperature Source Temporal Pulse Rate 61 Respiratory Rate 16 Respiratory Pattern Normal Blood Pressure 159/54 H Blood Pressure Mean 89 Blood Pressure Source Monitor Blood Pressure Position Semi-Fowlers Blood Pressure Location Right Arm Pulse Ox 100 Oxygen Delivery Method Room Air Weight Weight: 51.8 kg Body Mass Index (BMI) 20.9 Results Lab / Micro Data 06/23/25 16:39 06/27/25 0658 Cosigner Signature (if applicable): CC: Dr. Angel Juan MD; Dr. Akhil Leslie MD~ Signed [facility]08-01-2025 [facility] Medical Records Department [address] [place] [address] History Physical Exam 06/27/2557 MR#: [id number] Acct: [id number] Name: ALLIE MARIE Rep #: [id number] : 1935 89 From: Akhil Leslie MD PCP: Dr. 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 [facility] Medical History (Updated 06/18/25 @ 08:31 by [...] mg PO DAILY blood pressure #90 10/27/21 06/27/25 05:15 Rx tabs levothyroxine 25 mcg tablet 50 mcg PO DAILY thyroid 04/13/25 0 06/27/25 05:15 History metoprolol succinate 100 mg 100 mg PO DAILY blood pressure 06/27/25 05:15 History tablet,extended release 24 hr rosuvastatin 40 mg tablet 40 mg PO DAILY cholesterol 5 06/26/25 History ibuprofen 400 mg tablet 400 mg PO Q6H PRN pain #14 tabs Unknown Rx albuterol sulfate 90 mcg/actuation 2 inh inhalation Q6H PRN shortne ss 06/18/25 Unknown History breath activated powder inhaler of breath or wheezing Allergy/AdvReac Type Severity Reaction Status Date / Time hornet venom Allergy Anaphylaxis Verified 06/27/25 06:20 insect venom (yellow jacket) Allergy Anaphylaxis Verified 06/27/25 06:20 Penicillins Allergy Rash Verified 06/27/25 06:20 venom-wasp (Wasp Venom) Allergy Anaphylaxis Verified 06/27/25 06:20 Iisosks-AOO-KlN Reductase AdvReac muscle Verified 06/27/25 06:20 Inhibitor (Dlflbtc-Inm-Ghx weakness Reductase Inhibitor) tramadol AdvReac Other Verified 06/27/25 06:20 Family History Mother , age 55 sudden cardiac CAD (coronary artery disease) Sudden cardiac Father , age 77 Lung cancer Sister carotid artery surgery CAD (coronary artery disease) Surgical History (Updated 06/18/25 @ 08:31 by Gogo Baker) Hx of cystoscopy Hx of left cataract extraction Hx of [...] do you feel safe at home: Yes Vital Signs Vital Signs Vital Signs: 06/27/25 06:22 06/27/25 06:22 Temperature 98 F Temperature Source Temporal Pulse Rate 61 Respiratory Rate 16 Respiratory Pattern Normal Blood Pressure 159/54 H Blood Pressure Mean 89 Blood Pressure Source Monitor Blood Pressure Position Semi-Fowlers Blood Pressure Location Right Arm Pulse Ox 100 Oxygen Delivery Method Room Air Weight Weight: 51.8 kg Body Mass Index (BMI) 20.9 Results Lab / Micro Data 06/23/25 16:39 06/27/25 0658 Cosigner Signature (if applicable): CC: Dr. Angel Juan MD; Dr. Akhil Leslie MD [facility] Consult note [facility] Medical Records Department [address] [place] [address] Anesthesia Postop Eval I 06/13/25 173 MR#: [id number] Acct: [id number] Name: ALLIE MARIE Rep #:[id number] : 1935 89 From: Bam BALDERAS PCP: Dr. Angel Juan MD Status :[facility] [place] Race: C Location: [place] [address] Anesthesia: Postop Eval I Current Vital Signs Temperature: 36 F Pulse Rate: 75 Blood Pressure: 96/44 Respiratory Rate: 14 Pulse Ox: 96 Assessment Airway patent: Yes Spontaneous unlabored respirations: Yes nausea: No Vomiting: No Anesthesia Complication: No Fluid Hydration Crystalloid volume administer (ml): 500 Total IV fluid infused: 500 Progress Note Anesthesia document: Postop Eval 1 completed: Yes 06/13/251730 MAINFRAME PROGRAMMER> Date _ Bam Pride CRNA Cosigner Signature: Date CC: ~ Signed [facility]07-18-2025 Discharge summary [facility] Medical Records Department [address] [place] [address] Instructions for Home/Discharge Instructions 06/13/25 1655 MR#: [id number] Acct: [id number] Name: ALLIE MARIE Rep #:[id number] : 1935 89 From: Akhil Leslie MD PCP: Dr. Angel Juan MD [place] :[place] [facility] Discharge Instructions DC O2, CPAP, BIPAP needs Home O2 Discharge instructions: No Dressing / Incision Discharge Activity: Return to Normal Activity and No Restrictions Dressing / Incision Call your doctor if you observe: Fever of 101 or Higher and Uncontrolled pain Follow Up Care Please Follow Up With: Akhil Leslie MD When: Call [phone] for an appointment Test Results: Test results from this visit will be discussed in further detail at your follow- up appointment, if applicable. Discharge Plan Admission Primary Reason for Your Visit: bleeding from right kidney Attending Provider: Akhil Leslie Primary Care Provider: Angel Juan Instructions Print Language: Sri Lankan Discharge Orders/Prescriptions Prescriptions: New ibuprofen 400 mg [...] can be placed): Home, Self Care 06/13/25 1655Akhil Leslie MD CC: Dr. Angel Juan MD ~ Signed [facility]07-18-2025 History and physical note [facility] Medical Records Department [address] [place] [address] History & Physical Exam 06/13/2506 MR#: [id number] Acct: [id number] Name: ALLIE MARIE Rep #:[id number] : 1935 89 From: Akhil Leslie MD PCP: Dr. May Avitia MD Status:PRE [facility] [facility] HPI - General General Date of Service: 06/13/25 Chief Complaint: Hemorrhaging HPI Narrative ALLIE MARIE, is a 89 F who presents with ongoing hemorrhaging from the right kidney CAT scan was done yesterday no clear source but there is blood in the collecting system in the right side plan todo cystoscopy right retrograde pyelogram right ureteroscopy possible biopsy fulguration and possible laser [facility] Medical History (Updated 06/12/25 @ 16:31 by [...] (Wasp Venom) Allergy Anaphylaxis Verified 06/12/25 16:19 Awvexdc-MQA-OwH Reductase AdvReac muscle Verified 06/12/25 16:19 Inhibitor (Beiidjq-Oag-Zrf weakness Reductase Inhibitor) tramadol AdvReac Other Verified [...] you feel safe at home: Yes 06/13/25 0706 Cosigner Signature (if applicable): CC: Dr. May Avitia MD; Dr. Akhil Leslie MD~ Signed [facility]07-18-2025 Consult note [facility] Medical Records Department [address] [place] [address] Anesthesia Postop Eval II 06/13/251919 MR#: [id number] Acct: [id number] Name: ALLIE MARIE Rep #:[id number] : 1935 89 From: Viet Srinivasan MD PCP: Dr. Angel Juan MD Status :[place] [facility] Y Race: C Location: [place] [address] Anesthesia Postop Eval I Sum Postop Eval Completion status Anesthesia document: Postop Eval 1 completed: Yes Anesthesia Postop Eval I Summary Anesthesia Postop Eval I Summary: Anesthesia Postop Eval I: Assessment Summary Airway patent Yes 06/13/25 17:31 MAINFRAME PROGRAMMER.JYUN Spontaneous unlabored Yes 06/13/25 17:31 MAINFRAME PROGRAMMER.JYUN respirations Mental status nausea No 06/13/25 17:31 MAINFRAME PROGRAMMER.JYUN Vomiting No 06/13/25 17:31 MAINFRAME PROGRAMMER.JYUN Anesthesia Postop Eval I: Fluid Summary Crystalloid volume administer 500 06/13/25 17:31 MAINFRAME PROGRAMMER.JYUN (ml) Colloids volume administered ( ml) Blood Product volume administered (ml) Total IV fluid infused 500 06/13/25 17:31 MAINFRAME PROGRAMMER.JYUN Anesthesia Postop Eval I: Summary Notes Anesthesia Complication No 06/13/25 17:31 MAINFRAME PROGRAMMER.JYUN Anesthesia Complication Comment: Post-operative progress note Anesthesia: Postop Eval II Evaluation Mental status: Awake and Calm Pain Level: 1 nausea: No Vomiting: No Complications Anesthesia Complication: No 06/13/25 1921 darien DAILY> Date _ Viet Bolandigncortes Signature: Date CC: ~ Signed [facility]07-18-2025 Discharge summary Author Akhil Leslie [facility] Note Date/Time June 13, 2025 7:24 pm [facility] Medical Records Department [address] [place] [address] Instructions for Home/Discharge Instructions 06/13/25 1655 MR#: [id number] Acct: [id number] Name: ALLIE MARIE Rep #:[id number] : 1935 89 From: Akhil Leslie MD PCP: Dr. Angel Juan MD Status :[facility] Discharge Instructions DC O2, CPAP, BIPAP needs Home O2 Discharge instructions: No Dressing / Incision Discharge Activity: Return to Normal Activity and No Restrictions Dressing / Incision Call your doctor if you observe: Fever of 101 or Higher and Uncontrolled pain Follow Up Care Please Follow Up With: Akhil Leslie MD When: Call [phone] for an appointment Test Results: Test results from this visit will be discussed in further detail at your follow- up appointment, if applicable. Discharge Plan Admission Primary Reason for Your Visit: bleeding from right kidney Attending Provider: Akhil Leslie Primary Care Provider: Angel Juan Instructions Print Language: Sri [place]ankan Discharge Orders/Prescriptions Prescriptions: New ibuprofen 400 mg [...] can be placed): Home, Self Care 06/13/25 1655<Electronically signed by Akhil Leslie MD>Akhil Leslie MD CC: Dr. Angel Juan MD ~ Signed [facility] Work Phone: 1(491) 383-182507-18-2025 Consult note Author Viet [facility] Note Date/Time June 13, 2025 4:33 pm [facility] Medical Records Department [address] [place] [address] Pre-Anesthesia Evaluation 06/13/25 1620 MR#: [id number] Acct: [id number] Name: ALLIE MARIE Rep #:[id number] : 1935 89 From: Viet Srinivasan MD PCP: Dr. Angel Juan MD Status :[place] [facility] Race: C Location: [place] [address] ASA Classification* ASA Classification ASA Classification: 3 [...] retrograde pyelograms Anesthesia History Anesthesia History - increment manager: Anesthesia History - increment manager Hx Hospitalization Yes: SYNCOPE/SEVERE 06/12/25 16:21 DEHYDRATION [...] take am of surgery PONV PONV - increment manager: PONV - increment manager Female Yes 06/12/25 16:21 HX of Motion [...] 06/13/25 15:06 Respiratory Assessment Respiratory Assessment - increment manager: Respiratory Tract Infection Hx - increment manager Hx Respiratory Tract Infection No 06/12/25 16:21 STOP Sleep Apnea STOP Sleep Apnea - increment manager: STOP Sleep Apnea - increment manager Hx Hypertension Yes: CONTROLLED WITH MEDS 06/12/25 [...] Tobacco Use History Tobacco Use History - increment manager: Tobacco Use History - increment manager Tobacco Use Smoking Status Former smoker 06/12/25 16:21 Hx Tobacco Use No 06/12/25 16:21 Years Smoking Packs Smoked per Day Smoking Cessation Date was No - quit smoking greater 06/12/25 16:21 within the last 15 years than 15 years ago Hx Smoking Cessation Date Hx Smoking Cessation No 06/12/25 16:21 Counseling Hematologic Medial History Hematologic Hx - increment manager: Hematologic Medical Hx - manager medicaid Hx of Blood Transfusion No 06/12/25 16:21 [...] confused, unrespo /Reproduction History /Reproductive History - increment manager: /Reproductive Hx- increment manager Hx Now No 06/12/25 16:21 Gestational Age [...] (Wasp Venom) Allergy Anaphylaxis Verified 06/13/25 15:03 Fhlyahc-QRU-ToW Reductase AdvReac muscle Verified 06/13/25 15:03 Inhibitor (Suselsq-Phx-Mkh weakness Reductase Inhibitor) tramadol AdvReac Other Verified [...] MD Cosigner Signature: Date CC: ~ Signed [facility] Work Phone: 1(747) 909-225207-18-2025 Procedure note [facility] Medical Records Department [address] [place] [address] Operative Report 06/13/25 1723 MR#: [id number] Acct: [id number] Name: ALLIE MARIE Rep #:[id number] : 1935 89 From: Akhil Leslie MD PCP: Dr. 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 Angel Juan MD; Dr. Akhil Leslie MD~ Signed [facility]07-18-2025 Consult note [facility] Medical Records Department [address] [place] [address] Pre-Anesthesia Evaluation 06/13/25 1620 MR#: [id number] Acct: [id number] Name: ALLIE MARIE Rep #:[id number] : 1935 89 From: Viet Srinivasan MD PCP: Dr. Angel Juan MD Status :REG [facility] Y Race: C Location: [place] [address] ASA Classification* ASA Classification ASA Classification: 3 [...] retrograde pyelograms Anesthesia History Anesthesia History - increment manager: Anesthesia History - increment manager Hx Hospitalization Yes: SYNCOPE/SEVERE 06/12/25 16:21 DEHYDRATION [...] take am of surgery PONV PONV - increment manager: PONV - increment manager Female Yes 06/12/25 16:21 HX of Motion [...] 06/13/25 15:06 Respiratory Assessment Respiratory Assessment - increment manager: Respiratory Tract Infection Hx - increment manager Hx Respiratory Tract Infection No 06/12/25 16:21 STOP Sleep Apnea STOP Sleep Apnea - increment manager: STOP Sleep Apnea - increment manager Hx Hypertension Yes: CONTROLLED WITH MEDS 06/12/25 [...] Tobacco Use History Tobacco Use History - increment manager: Tobacco Use History - increment manager Tobacco Use Smoking Status Former smoker 06/12/25 16:21 Hx Tobacco Use No 06/12/25 16:21 Years Smoking Packs Smoked per Day Smoking Cessation Date was No - quit smoking greater 06/12/25 16:21 within the last 15 years than 15 years ago Hx Smoking Cessation Date Hx Smoking Cessation No 06/12/25 16:21 Counseling Hematologic Medial History Hematologic Hx - increment manager: Hematologic Medical Hx - manager medicaid Hx of Blood Transfusion No 06/12/25 16:21 [...] confused, unrespo /Reproduction History /Reproductive History - increment manager: /Reproductive Hx- increment manager Hx Now No 06/12/25 16:21 Gestational Age [...] (Wasp Venom) Allergy Anaphylaxis Verified 06/13/25 15:03 Qusdrbq-LJL-QdD Reductase AdvReac muscle Verified 06/13/25 15:03 Inhibitor (Vosagtx-Hjw-Zpn weakness Reductase Inhibitor) tramadol AdvReac Other Verified [...] MD Cosigner Signature: Date CC: ~ Signed [facility]07-18-2025 History and physical note Author Akhil Leslie [facility] Note Date/Time June 13, 2025 7:24 pm [facility] Medical Records Department [address] [place] [address] History & Physical Exam 06/13/25 0706 MR#: [id number] Acct: [id number] Name: ALLIE MARIE Rep #:[id number] : 1935 89 From: Akhil Leslie MD PCP: Dr. May Avitia MD Status:PRE [facility] [facility] HPI - General General Date of Service: [...] possible biopsy fulguration and possible laser [facility] Medical History (Updated 06/12/25 @ 16:31 by [...] (Wasp Venom) Allergy Anaphylaxis Verified 06/12/25 16:19 Jydubkh-TUL-BvO Reductase AdvReac muscle Verified 06/12/25 16:19 Inhibitor (Qsovzuv-Zcl-Itl weakness Reductase Inhibitor) tramadol AdvReac Other Verified [...] Avitia MD; Dr. Akhil Leslie MD~ Signed [facility] Work Phone: 1(314) 492-586307-18-2025 [facility] Medical Records Department [address] [place] [address] History Physical Exam 06/13/25 0706 MR#: [id number] Acct: [id number] Name: ALLIE MARIE Rep #: [id number] : 1935 89 From: Akhil Leslie MD PCP: Dr. Angel Juan MD Status:DEP [facility] [place] [facility] HPI - General General Date of Service: [...] possible biopsy fulguration and possible laser [facility] Medical History (Updated 06/12/25 @ 16:31 by [...] (Wasp Venom) Allergy Anaphylaxis Verified 06/12/25 16:19 Yjkrudt-MJE-YtG Reductase AdvReac muscle Verified 06/12/25 16:19 Inhibitor (Vugkwmn-Weq-Ost weakness Reductase Inhibitor) tramadol AdvReac Other Verified [...] you feel safe at home: Yes 06/13/25 0706 Cosigner Signature (if applicable): CC: Dr. Angel Juan MD; Dr. Akhil Leslie MD Signed ADDENDUM by Dr. Akhil Leslie MD on 06/27/25 at 1302 Addendum updated 06/27/25 1302 Cosigner Signature (if applicable): cc: Dr. Angel Juan MD; Dr. Akhil Leslie MD * [facility] Radiology Diagnostic study note [facility] Imaging Services [address] [place] [address] Abdomen/Pelvis without Cont MR#: [id number] Acct: [id number] Name: ALLIE MARIE Rep #: [id number] : 1935 F 89 From: Tono Gutiérrez MD PCP: Dr. May Avitia MD Status: REG CLI Study:Abdomen/Pelvis without Cont Date of Exa m: 06/12/25 Exam# [id number] Ordering Dr: Alba Leslie MD PROCEDURE: ABDOMEN/PELVIS [...] or ureteral calcification is seen. Reading Location: [facility] CC: Dr. May Avitia MD; Dr. Akhil Leslie MD ~ Enforcement Manager: Signed [facility]05-20-2025 Discharge summary Author Ken Parker [facility] Note Date/Time April 15, 2025 10:42 am [facility] Medical Records Department [address] [place] [address] Instructions for Home/Discharge Instructions 05/19/25 1536 MR#: [id number] Acct: [id number] Name: ALLIE MARIE Rep #:[id number] : 1935 89 From: Ken Parker DO [...] MD; Dr. Lilia Tom MD ~* Signed [facility] Work Phone: 1(128) 255-392605-20-2025 Discharge summary [facility] Medical Records Department [address] [place] [address] Instructions for Home/Discharge Instructions 04/14/25 1536 MR#: [id number] Acct: [id number] Name: ALLIE MARIE Rep #:[id number] : 1935 89 From: Ken Parker DO [...] MD; Dr. Lilia Tom MD ~* Signed [facility]05-19-2025 Progress note Author Ken Parker [facility] Note Date/Time April 14, 2025 5:27[facility] Medical Records Department [address] [place] [address] Progress Note - Hospitalist 04/14/25 1725 MR#: [id number] Acct: [id number] Name: ALLIE MARIE Rep #:[id number] : 1935 89 From: Ken Parker DO PCP: Dr. 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 Radiography Diagnostic Testing: Radiology Impression Echocardiogram 04/13/25 [...] team: 35-minute Charges/Coding Visit Charges Inpatient E&M: 34337 Subs Hosp L2 04/14/257 <Electronically signed by Ken Parker DO> Cosigner Signature (if applicable): CC: ~ Signed [facility] Work Phone: 1(689) 248-703605-19-2025 Consult note Author Guillermina Sutherland [facility] Note Date/Time April 14, 2025 4:39p m [facility] Medical Records Department [address] [place] [address] Counseling Note - Pharmacy 04/14/25 1638 MR#: [id number] Acct: [id number] Name: ALLIE MARIE Rep #:[id number] : 1935 89 From: Guillermina Sutherland PCP: Dr. May Avitia MD Status:ADM IN Y Location: [facility] [id number]- 1 Pharmacy [facility] Pharmacy Service has performed discharge medication reconciliation [...] mg PO BID #14 caps 04/14/25 04/14/25 1632 <Electronically signed by Guillermina Sutherland> Date _ Guillermina Sutherland Cosigner Signature (if applicable): Date CC: ~ Signed [facility] Work Phone: 1(230) 285-402205-19-2025 Progress note [facility] Medical Records Department [address] [place] [address] Progress Note - Hospitalist 04/14/25 8180 MR#: [id number] Acct: [id number] Name: ALLIE MARIE Rep #:[id number] : 1935 89 From: Ken Parker DO PCP: Dr. 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 May Avitia MD Status:ADM IN [facility] Pharmacy Service has performed discharge medication reconciliation [...] Signature (if applicable): Date CC: ~ Signed [facility]05-19-2025 [facility] Medical Records Department [address] [place] [address] Discharge Summary 04/14/25 1546 MR#: [id number] Acct: [id number] Name: ALLIE MARIE Rep #: [id number] : 1935 89 From: Ken Parker DO PCP: Dr. aMy Avitia MD Status:DIS IN Location: [facility] [id number] Providers Date of Admission: 04/13/25 Date of [...] was seen in the emergency room at [facility] with complaints of generalized weakness x [...] Sl. Cloudy, Urine pH 6.0, Ur Specific [place] 1.020, Urine Protein 100 H, Urine Glucose [...] 136 L, MPV 9. (more content not included)...[facility]05-19-2025 Discharge summary Author Miladis Sánchez [facility] Note Date/Time April 13, 2025 11:28 pm [facility] Medical Records Department [address] [place] [address] Emergency Department Summary 04/13/25 MR#: [id number] Acct: [id number] Name: ALLIE MARIE Rep #:[id number] : 1935 89 From: Miladis PICKETT PCP: Dr. May Avitia MD Status:ADM IN Location: [address] <PIYUSH Sapp - Last Filed: 04/13/25 [...] Sapp - Last Filed: 04/13/25 18:48> [facility] Medical History Essential (primary) hypertension Stenosis of [...] tablet 50 mg PO DAILY #90 tabs 1212/1704/12/25 Rx levothyroxine 25 mcg tablet 25 mcg [...] (Wasp Venom) Allergy Anaphylaxis Verified 04/13/25 14:28 Fjdbbie-RCP-IbP Reductase AdvReac muscle Verified 04/13/25 21:07 Inhibitor (Nqvkxxt-Otl-Dgh weakness Reductase Inhibitor) tramadol AdvReac Other Verified [...] [Lying] Pulse Ox 99 Oxygen Delivery Method [facility] <PIYUSH Sapp - Last Filed: 04/13/25 18:48> [facility] Narrative Medical decision making narrative: Patient presenting [...] 70.3 H Lymph % (Auto) 18.7 L [place] % (Auto) 8.1 Eos % (Auto) 1.8 [...] Sl. Cloudy Urine pH 6.0 Ur Specific [place] 1.020 Urine Protein 100 H Urine Glucose [...] (Auto) Neut % (Auto) Lymph % (Auto) [place] % (Auto) Eos % (Auto) Baso % [...] Color Urine Clarity Urine pH Ur Specific [place] Urine Protein Urine Glucose (UA) Urine Ketones [...] IMPRESSION: No acute cardiopulmonary process. Reading Location: [facility] EKG Initial EKG: Comments: 67 bpm, sinus rhythm with first-degree AV block, no ST elevation, interpreted by attending ED physician <Dr. Ant Vale, DO - Last Filed: 04/13/25 23:28> [facility] MDM Narrative Medical decision making narrative: Patient [...] 70.3 H Lymph % (Auto) 18.7 L [place] % (Auto) 8.1 Eos % (Auto) 1.8 [...] Sl. Cloudy Urine pH 6.0 Ur Specific [place] 1.020 Urine Protein 100 H Urine Glucose [...] (Auto) Neut % (Auto) Lymph % (Auto) [place] % (Auto) Eos % (Auto) Baso % [...] Color Urine Clarity Urine pH Ur Specific [place] Urine Protein Urine Glucose (UA) Urine Ketones Urine Occult Blood Urine Nitrite Urine Bilirubin Urine Urobilinogen Ur Leukocyte Esterase Urine RBC Urine WBC Ur Squamous Epith Cells Ur Renal Epithelial Cell Urine Bacteria Fine Granular Casts Coarse Granular Casts Urine Mucus Radiography Diagnostic Testing: Clinical Impression(s) from Imaging Studies Chest X-Ray 04/13/25 15:40 IMPRESSION: No acute cardiopulmonary process. Reading Location: [facility] Discharge Plan Dx/Rx/DC Orders Clinical Impression: Generalized weakness, UTI (urinary tract infection), Acute dehydration Disposition Disposition: [facility] Discharge Date/Time: 04/13/25 19:33 What to do if you have Problems For any increased pain, shortness of breath, bleeding, nausea or vomiting, chest pain, or any unexpected problems, contact your Primary Care Provider. Call [facility] ([phone]) or report to the closest Emergency Room. Call 911 if necessary. 04/13/25 1848 <Electronically signed by Miladis PICKETT> Cosigner Signature (if applicable): 04/13/25 2328 <Electronically signed by Ant Vale DO> CC: Dr. May Avitia MD ~ Signed [facility] Work Phone: 1(792) 106-275505-18-2025 Discharge summary [facility] Medical Records Department [address] [place] [address] Emergency Department Summary 04/13/25 MR#: [id number] Acct: [id number] Name: ALLIE MARIE Rep #:[id number] : 1935 89 From: Miladis PICKETT PCP: Dr. May Avitia MD Status:ADM IN Location: [address] History of Present Illness Chief Complaint: [...] a PMH of CVA, HTN, and HLD. [facility] Medical History Essential (primary) hypertension Stenosis of [...] (Wasp Venom) Allergy Anaphylaxis Verified 04/13/25 14:28 Nepqysq-TTS-VrR Reductase AdvReac muscle Verified 04/13/25 21:07 Inhibitor (Iatvuqs-Nrs-Gli weakness Reductase Inhibitor) tramadol AdvReac Other Verified [...] 70.3 H Lymph % (Auto) 18.7 L [place] % (Auto) 8.1 Eos % (Auto) 1.8 [...] Sl. Cloudy Urine pH 6.0 Ur Specific [place] 1.020 Urine Protein 100 H Urine Glucose [...] (Auto) Neut % (Auto) Lymph % (Auto) [place] % (Auto) Eos % (Auto) Baso % [...] Color Urine Clarity Urine pH Ur Specific [place] Urine Protein Urine Glucose (UA) Urine Ketones [...] IMPRESSION: No acute cardiopulmonary process. Reading Location: [facility] EKG Initial EKG: Comments: 67 bpm, sinus [...] interpreted by me, ED physician pneumonia, effusion, ca rdiomegaly, pneumothorax. [...] 70.3 H Lymph % (Auto) 18.7 L [place] % (Auto) 8.1 Eos % (Auto) 1.8 [...] Sl. Cloudy Urine pH 6.0 Ur Specific [place] 1.020 Urine Protein 100 H Urine Glucose [...] (Auto) Neut % (Auto) Lymph % (Auto) [place] % (Auto) Eos % (Auto) Baso % [...] Color Urine Clarity Urine pH Ur Specific [place] Urine Protein Urine Glucose (UA) Urine Ketones Urine Occult Blood Urine Nitrite Urine Bilirubin Urine Urobilinogen Ur Leukocyte Esterase Urine RBC Urine WBC Ur Squamous Epith Cells Ur Renal Epithelial Cell Urine Bacteria Fine Granular Casts Coarse Granular Casts Urine Mucus Radiography Diagnostic Testing: Clinical Impression(s) from Imaging Studies Chest X-Ray 04/13/25 15:40 IMPRESSION: No acute cardiopulmonary process. Reading Location: [facility] Discharge Plan Dx/Rx/DC Orders Clinical Impression: Generalized weakness, UTI (urinary tract infection), Acute dehydration Disposition Disposition: Acute Care Hospital [facility] Discharge Date/Time: 04/13/25 19:33 What to do if you have Problems For any increased pain, shortness of breath, bleeding, nausea or vomiting, chest pain, or any unexpected problems, contact your Primary Care Provider. Call [facility] ([phone]) or report to the closest Emergency Room. Call 911 if necessary. 04/13/25 3301 Cosigner Signature (if applicable): 04/13/25 5317 CC: Dr. May Avitia MD ~ Signed [facility]05-18-2025 History and physical note Author Lilia Tom [facility] Note Date/Time April 13, 2025 7:06p m [facility] Medical Records Department [address] [place] [address] H&P Exam - Hospitalist 04/13/25 1840 MR#: [id number] Acct: [id number] Name: ALLIE MARIE Rep #:[id number] : 1935 89 From: Lilia Tom MD PCP: Dr. May Avitia MD Status:ADM IN Location: [facility] FUU134- 1 HPI - General General Date of [...] Former tobacco use who presents to the [facility] ED on 04/13/2025 with history of [...] (Wasp Venom) Allergy Anaphylaxis Verified 04/13/25 14:28 Rxulbuw-MOP-WmX Reductase AdvReac muscle Verified 04/13/25 14:28 Inhibitor (Gogumhc-Tcq-Oic weakness Reductase Inhibitor) tramadol AdvReac Other Verified [...] 70.3 H, Lymph % (Auto) 18.7 L, [place] % (Auto) 8.1, Eos % (Auto) 1.8, [...] Sl. Cloudy, Urine pH 6.0, Ur Specific [place] 1.020, Urine Protein 100 H, Urine Glucose [...] IMPRESSION: No acute cardiopulmonary process. 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 Charges/Coding Visit Charges Inpatient E&M: 40073 Init Hosp L3 Procedures Hospitalists Procedures: 68650 Advncd Care Plan 30 Min 04/13/25 1906 <Electronically signed by Lilia Tom MD> Cosigner Signature (if applicable): CC: Dr. May Avitia MD; Dr. Lilia Tom MD~ Signed [facility] Work Phone: 1(159) 562-206705-18-2025 Evaluation note* Diagnosis Onset Date Resolution Status Admit Date Acute dehydration acute March h2024 6:44pm Generalized weakness acute April 13, 2025 6:44pm UTI (urinary tract infection) acute April 13, 2025 6:44pm [facility] Work Phone: 1(990) 658-929005-18-2025 Evaluation note* Diagnosis Onset Date Resolution Status Admit Date Acute dehydration inactive March 6:44pm Generalized weakness inactive April 13, 2025 6:44pm UTI (urinary tract infection) inacti ve April 13, 2025 6:44pm [facility] Work Phone: 1(379) 450-884805-18-2025 History and physical note [facility] Medical Records Department [address] [place] [address] H&P Exam - Hospitalist 04/13/25 1840 MR#: [id number] Acct: [id number] Name: ALLIE MARIE Rep #:[id number] : 1935 89 From: Lilia Tom MD PCP: Dr. May Avitia MD Status:ADM IN Location: [facility] TEM126- 1 HPI - General General Date of [...] Former tobacco use who presents to the [facility] ED on 04/13/2025 with history of [...] (Wasp Venom) Allergy Anaphylaxis Verified 04/13/25 14:28 Bohrbfq-WKO-BqK Reductase AdvReac muscle Verified 04/13/25 14:28 Inhibitor (Zacxboy-Tsg-Fwt weakness Reductase Inhibitor) tramadol AdvReac Other Verified [...] 70.3 H, Lymph % (Auto) 18.7 L, [place] % (Auto) 8.1, Eos % (Auto) 1.8, [...] Clarity Sl. Cloudy, Urine pH6.0, Ur Specific [place] 1.020, Urine Protein 100 H, Urine Glucose [...] IMPRESSION: No acute cardiopulmonary process. 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 Charges/Coding Visit Charges Inpatient E&M: 25319 Init Hosp L3 Procedures Hospitalists Procedures: 22350 Advncd Care Plan 30 Min 04/13/25 1906 Cosigner Signature (if applicable): CC: Dr. May Avitia MD; Dr. Lilia Tom MD~ Signed [facility]05-18-2025 Radiology Diagnostic study note [facility] Imaging Services [address] [place] [address] [id number] Chest PA and Lateral MR#: [id number] Acct: [id number] Name: ALLIE MARIE Rep #: [id number] : 1935 F 89 From: Shy Juares MD PCP: Dr. May Avitia MD Status: REG ER Study:Chest PA and Lateral Date of Exam: 04/13/25 Exam# [id number] Ordering Dr: Miladis Inman EXAM: XR Chest, 2 Views CLINICAL INDICATION: WEAKNESS TECHNIQUE: Frontal and lateral views of the chest. COMPARISON: No relevant prior studies available. FINDINGS: LUNGS AND PLEURAL SPACES: Unremarkable. No consolidation. No pneumothorax. HEART: Unremarkable. No cardiomegaly. MEDIASTINUM: Unremarkable. Normal mediastinal contour. BONES/JOINTS: Unremarkable. No acute fracture. RAD/Chest PA and Lateral IMPRESSION: No acute cardiopulmonary process. Reading Location: [facility] CC: Dr. May Avitia MD; PIYUSH Sapp ~ Enforcement Manager: Signed [facility]01-25-2021 NotePatient Outreach (COOCC3) MAIREALLIE REA ([id number]) 1935 F Date Time Provider Department 12/21/20 LINNETTE TALAVERA3 During your visit today, we recorded the following information about you: Allergies As of Date: 12/21/2020 Noted Allergy Reaction NSAIDS (NON-STEROIDAL ANTI-INFLAM*07/11/2005 14 - Other: See Comments Comments: Bleeding ulcer in fauzia amounts UBGUOTN-ZWS-NNL REDUCTASE INHIBIT*12/06/2010 14 - Other: See Comments Comments: Muscle aches and weakness as well as joint pain. Had tried all of the statins and cannot tolerate. ZETIA (EZETIMIBE) 04/11/2012 14 - Other: See Comments Comments: Muscle pain and weakness. ALLER BN-QCMHG-KGM HORNET PROT 03/13/2007 Comments: dizzy, nausea, drop [...] Fully Assessed Order(s):SARS-COVID VACCINE 1ST DOSE APPT [[id number]] Order #: [id number] FUTURE Prescriptions as of 12/21/2020 Sig: CHOLECALCIFEROL(VITAMIN [...] W/O COMPL [K64.8] MYALGIA AND MYOSITIS NOS [OKW5169] 09/07/2005 Essential hypertension [I10] 11/08/2005 Chest pain, [...] CVA (cerebrovascular accident) [Z86.*03/07/2017 Encounter Status:Closed by JOSIAH, PRODUSER on 12/24/20[facility] Consult note Author Bam Pride [facility] Note Date/Time June 13, 2025 7:24 pm [facility] Medical Records Department [address] [place] [address] Anesthesia Postop Eval I 06/13/251730 MR#: [id number] Acct: [id number] Name: ALLIE MARIE Rep #:[id number] : 1935 89 From: Bam BALDERAS PCP: Dr. Angel Juan MD Status :REG SD Y Race: C Location: [place] [address] Anesthesia: Postop Eval I Current Vital Signs [...] Bam Pride CRNA> Date _ Bam Pride CRNA Cosigner Signature: Date CC: ~ Signed [facility] Work Phone: Consult note Author Viet Srinivasan [facility] Note Date/Time June 13, 2025 7:21 pm [facility] Medical Records Department [address] [place] [address] Anesthesia Postop Eval II 06/13/251919 MR#: [id number] Acct: [id number] Name: ALLIE MARIE Rep #:[id number] : 1935 89 From: Viet Srinivasan MD PCP: Dr. Angel Juan MD Status :REG SDC Y Race: C Location: [place] [address] Anesthesia Postop Eval I Sum Postop Eval Completion status Anesthesia document: Postop Eval 1 completed: Yes Anesthesia Postop Eval I Summary Anesthesia Postop Eval I Summary: Anesthesia Postop Eval I: Assessment Summary Airway patent Yes 06/13/25 17:31 MAINFRAME [email or web address] Spontaneous unlabored Yes 06/13/25 17:31 MAINFRAME [email or web address].JYUN respirations Mental status nausea No 06/13/25 17:31 MAINFRAME [email or web address].JYUN Vomiting No 06/13/25 17:31 MAINFRAME [email or web address].JYUN Anesthesia Postop Eval I: Fluid Summary Crystalloid volume administer 500 06/13/25 17:31 MAINFRAME PROGRAMMER.JYUN (ml) Colloids volume administered ( ml) Blood Product volume administered (ml) Total IV fluid infused 500 06/13/25 17:31 MAINFRAME [email or web address].JYUN Anesthesia Postop Eval I: Summary Notes Anesthesia Complication No 06/13/25 17:31 MAINFRAME [email or web address].JYUN Anesthesia Complication Comment: Post-operative progress note Anesthesia: Postop Eval II Evaluation Mental status: Awake and Calm Pain Level: 1 nausea: No Vomiting: No Complications Anesthesia Complication: No 06/13/251920 <Electronically signed by Viet ledezma MD> Date _ Viet Srinivasan MD Cosigner Signature: Date CC: ~ Signed [facility] Work Phone: Evaluation noteNo assessment information available [facility] Work Phone: Evaluation note* Diagnosis Onset Date Resolution Status Admit Date Acute dehydration acute March 6:44pm Generalized weakness acute April 13, 2025 6:44pm UTI (urinary tract infection) acute April 13, 2025 6:44pm [facility] Work Phone: History and physical note Author Lilia Tom [facility] Note Date/Time April 13, 2025 7:06p m [facility] Medical Records Department [address] [place] [address] H&P Exam - Hospitalist 04/13/25 1840 MR#: [id number] Acct: [id number] Name: ALLIE MARIE Rep #:[id number] : 1935 89 From: Lilia Tom MD PCP: Dr. May Avitia MD Status:ADM IN Location: [place] [id number]- HPI - General General Date of Admission: [...] Former tobacco use who presents to the [facility] ED on 04/13/2025 with history of [...] saline, Rocephin 1 g IV x 1. [facility] Essential (primary) hypertension Stenosis [...] tablet 50 mg PO DAILY #90 tabs 12/12/1704/12/25 Rx levothyroxine 25 mcg tablet 25 mcg [...] (Wasp Venom) Allergy Anaphylaxis Verified 04/13/25 14:28 Rbxhmaz-OUO-LiP Reductase AdvReac muscle Verified 04/13/25 14:28 Inhibitor (Lunmujo-Ilc-Iwn weakness Reductase Inhibitor) tramadol AdvReac Other Verified [...] 70.3 H, Lymph % (Auto) 18.7 L, [place] % (Auto) 8.1, Eos % (Auto) 1.8, [...] Sl. Cloudy, Urine pH 6.0, Ur Specific [place] 1.020, Urine Protein 100 H, Urine Glucose [...] IMPRESSION: No acute cardiopulmonary process. 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 Charges/Coding Visit Charges Inpatient E&M: 87981 Init Hosp L3 Procedures Hospitalists Procedures: 51180 Advncd Care Plan 30 Min 04/13/25 1906 <Electronically signed by Lilia Tom MD> Cosigner Signature (if applicable): CC: Dr. May Avitia MD; Dr. Lilia Tom MD~ Signed [facility] Work Phone: Hospital Discharge instructionsAdditional Instructions Date [facility]: [facility]25[facility] Phone: Reason for referral (narrative)No reason for referral information availableW[facility] Work Phone: Summary Purpose Family History Relationship Condition Age at Onset Recorded Date/T sakina mother Coronary artery disease Unknown Sudden cardiac Unknown father Malignant neoplasm of lung Unknown sister Unknown Coronary artery disease Unknown Advance Directives Advance Directive Response Recorded Date/ Time Advance Directives Yes June 22 3:25pm Living Will No September 13 11:38am Power of College And Career Counselor No September 13, 2021 11:38am Advance Directive Response Recorded Date/ Time Advance Directives Yes June 22 4:25pm Living Will No February 25, 2024 8:52pm Power of College And Career Counselor No February 24 8:52pm Advance Directive Response Recorded Date/ Time Do you have a Healthcare Power of College And Career Counselor? Yes April 13, 2025 2:55pm Advance Directives Yes June 22 4:25pm Advance Directive Response Recorded Date/ Time Do you have a Healthcare Power of College And Career Counselor? No April 13, 2025 8:06pm Advance Directives Yes June 22 4:25pm Advance Directive Response Recorded Date/ Time Do you have a Healthcare Power of College And Career Counselor? No April 13, 2025 8:06pm Do you have a Healthcare Power of College And Career Counselor? Yes June 12, 2025 4:21pm Advance Directives Yes June 22 4:25pm Advance Directive Response Recorded Date/ Time Do you have a Healthcare Power of College And Career Counselor? Yes June 27, 2025 1:01pm Do you have a Healthcare Power of College And Career Counselor? No April 13, 2025 8:06pm Do you have a Healthcare Power of College And Career Counselor? Yes June 12, 2025 4:21pm Advance Directives Yes June 22 4:25pm Advance Directive Response Recorded Date/ Time Do you have a Healthcare Power of College And Career Counselor? Yes June 27, 2025 1:01pm Do you have a Healthcare Power of College And Career Counselor? Yes June 12, 2025 4:21pm Advance Directives [...] Gross hematuria June 12, 2025 1:46 pm Chief Complaint Admit Date ADULT FTT, UTI, ELEVATED TROP April 13, 2025 6:44pm ADULT FTT, UTI, ELEVATED TROP April 14, 2025 5:25pm INTERNAL ORDER May 28, 2025 1:43p m Gross hematuria June 12, 2025 1:46 pm ROBOTIC Nephrectomy, Ureterectomy/EORDER LAB June 28, 2025 9:43am Chief Complaint Admit Date INTERNAL ORDER May 28, 2025 1:43p m Gross hematuria June 12, 2025 1:46 pm ROBOTIC Nephrectomy, Ureterectomy/EORDER LAB June 28, 2025 9:43am Additional Source Comments INFORMATION SOURCE (unrecogn ized section and content) DATE CREATED AUTHOR 12/13/2021 [facility] DATE CREATED AUTHOR AUTHOR'S ORGANIZ ATION 07/12/2025 [facility] Goals (unrecognized section and content) Goals may [...] Primary Care Provider Active Dr. Aime Fernandes , Emergency Provider Active Team Status: Active Member [...] 2025 End: May 28, 2025 Boubacar Mauricio BEE RANCHER, BEE RANCHER-C Attending Provider Active Start: May 28, 2025 End: May 28, 2025 Boubacar Mauricio BEE RANCHER, BEE RANCHER-C Referring Provider Active Start: May 28, 2025 [...] June 12, 2025 End: June 12, 2025 Team Status: Inactive Member Role/Relationship Status Dates Dr. Angel Juan MD Primary Care Provider Acti ve Start: June 28, 2025 End: June 29, 2025 Dr. Akhil Leslie MD Admit Provider Active Start: June 28, 2025 End: June 29, 2025 Dr. Akhil Leslie MD Attending Provider Active Start: June 28, 2025 End: June 29, 2025 Dr. Akhil Leslie MD Referring Provider Active Start: June 28, 2025 End: June 29, 2025 Dr. Viet Srinivasan MD Other Provider Active S tart: June 28, 2025 End: June 29, 2025 Team Status: Inactive Member Role/Relationship Status Dates Dr. Angel Juan MD Primary Care Provider Acti ve Start: July 02, 2025 End: July 02, 2025 Dr. Akhil Leslie MD Attending Provider Active Start: July 02, 2025 End: July 02, 2025 Team Status: Active Member Role/Relationship Status Dates Dr. Angel Juan MD Primary care physician Act jodie Team Status: Inactive Member Role/Relationship Status Dates Dr. May Avitia MD Primary care physician Active Start: May 28, 2025 End: May 28, 2025 Boubacar Mauricio BEE RANCHER, BEE RANCHER-C Attending physician Active Start: May 28, 2025 End: May 28, 2025 Boubacar McMorrow BEE RANCHER, BEE RANCHER-C Referring Provider Active Start: May 28, 2025 End: May 28, 2025 Team Status: Inactive Member Role/Relationship Status Dates Dr. May Avitia MD Primary care physician Active Start: June 12, 2025 End: June 12, 2025 Dr. Akhil Leslie MD Attending physician Active Start: June 12, 2025 End: June 12, 2025 Dr. Akhil Leslie MD Referring Provider Active Start: June 12, 2025 End: June 12, 2025 Team Status: Inactive Member Role/Relationship Status Dates Dr. Akhil Leslie MD Attending physician Active Start: June 13, 2025 End: June 13, 2025 Dr. Akhil Leslie MD Referring Provider Active Start: June 13, 2025 End: June 13, 2025 Dr. Angel Juan MD Primary care physician Act jodie Start: June 13, 2025 End: June 13, 2025 Team Status: Inactive Member Role/Relationship Status Dates Dr. Angel Juan MD Primary care physician Act jodie Start: June 28, 2025 End: June 29, 2025 Dr. Akhil Leslie MD Admitting physician Active Start: June 28, 2025 End: June 29, 2025 Dr. Akhil Leslie MD Attending physician Active Start: June 28, 2025 End: June 29, 2025 Dr. Akhil Leslie MD Referring Provider Active Start: June 28, 2025 End: June 29, 2025 Dr. Viet Srinivasan MD Nurse Practitioner Active Start: June 28, 2025 End: June 29, 2025 Team Status: Inactive Member Role/Relationship Status Dates Dr. Angel Juan MD Primary care physician Act jodie Start: July 02, 2025 End: July 02, 2025 Dr. Akhil Leslie MD Attending physician Active Start: July 02, 2025 End: July 02, 2025 FOR RECORDS PERTAINING TO PATIENTS WHO [...] BE BASED ON THE PRIMARY CLINICAL RECORDS. [facility] [employer] [facility]. provides no warranty or guarantee of the accuracy or completeness of information in this document.
--- NOTE | 2025-10-17 18:44 | EX.ED.UPPERE ---
HPI History of Present Illness HPI Narrative: 82-year-old female [id number] today noticed redness to her right wrist and forearm. No prior history. No fall or trauma. No history of gout. No prior surgeries to her wrist. Denies any fever or chills or any other complaints. Mild soreness. Chief Complaint: Upper Extremity Injury Informant: patient and family Occured/Mechanism Mechanism/Context: No injury and No blunt trauma Onset/Context/Timing Onset: Today and Hours Context: Gradual Onset Timing: Continuous Quality of Pain: Dull and Aching Current Severity: Mild Maximum Severity: Mild Associated Symptoms Associated Symptoms: Negative for Parasthesia, Weakness or Loss of Funtion Narrative Narrative: 89-year-old female redness to her right wrist and forearm. Started today. No history of gout. No trauma. No fever. Prior similar symptoms: No Recent Illness/Hospitalization: No PFSH PFS Medical History Wears glasses Open wound Thyroid disease Walker as ambulation aid Ambulates with cane Arthritis DVT (deep venous thrombosis) High cholesterol History of ulceration Non-smoker Shortness of breath on exertion History of echocardiogram Cardiology follow-up encounter UTI (urinary tract infection) Generalized weakness Essential (primary) hypertension Stenosis of right vertebral artery Obstructive hypertrophic cardiomyopathy Syncope and collapse History of CVA (cerebrovascular accident) (07/2017) Vertigo Depression History of TIA (transient ischemic attack) Meniere disease History of asthma Home Medications ?Medication ?Instructions ?Recorded ?Last Taken ?Type aspirin 81 mg chewable tablet 81 mg PO DAILY@0800 health 07/13/17 06/12/25 History Held on 06/27/25. maintenance Instructions: Resume on 07/11/25. clopidogrel 75 mg tablet 75 mg PO DAILY blood thinner 07/13/17 06/12/25 History Held on 06/27/25. Instructions: Resume on 07/11/25. losartan 50 mg tablet 50 mg PO DAILY blood pressure #90 10/27/21 06/27/25 05:15 Rx tabs levothyroxine 25 mcg tablet 50 mcg PO DAILY thyroid 04/13/25 06/27/25 05:15 History metoprolol succinate 100 mg 100 mg PO DAILY blood pressure 04/13/25 06/27/25 05:15 History tablet,extended release 24 hr rosuvastatin 40 mg tablet 40 mg PO DAILY cholesterol 05/18/25 07/31/25 History albuterol sulfate 90 mcg/actuation 2 inh inhalation Q6H PRN shortness 06/18/25 Unknown History breath activated powder inhaler of breath or wheezing ciprofloxacin HCl 250 mg tablet 250 mg PO DAILY #10 tabs 06/27/25 Unknown Rx docusate sodium 100 mg capsule 100 mg PO BID #20 caps 06/27/25 Unknown Rx (Colace) oxycodone 5 mg tablet 5 mg PO Q6H PRN pain 7 days #10 06/27/25 Unknown Rx tabs clindamycin HCl 300 mg capsule 300 mg PO TID 7 days #21 caps 10/17/25 Unknown Rx (Cleocin HCl) Allergy/AdvReac Type Severity Reaction Status Date / Time hornet venom Allergy Anaphylaxis Verified 10/17/25 16:18 insect venom (yellow jacket) Allergy Anaphylaxis Verified 10/17/25 16:18 Penicillins Allergy Rash Verified 10/17/25 16:18 venom-wasp (Wasp Venom) Allergy Anaphylaxis Verified 10/17/25 16:18 [id number]-[id number] Reductase AdvReac muscle Verified 10/17/25 16:18 Inhibitor (Yolaptm-Aiw-Lgs weakness Reductase Inhibitor) tramadol AdvReac Other Verified 10/17/25 16:18 Family History Mother , age 55 sudden cardiac CAD (coronary artery disease) Sudden cardiac Father , age 77 Lung cancer Sister carotid artery surgery CAD (coronary artery disease) Surgical History Hx of cystoscopy Hx of left cataract extraction Hx of right cataract extraction History of esophagogastroduodenoscopy (EGD) Hx of colonoscopy History of carpal tunnel surgery of right wrist Hx of total knee arthroplasty Hx of total knee replacement History of appendectomy History of Wendy fundoplication Social History household members: spouse Smoking Status: Unknown if ever smoked alcohol intake: current alcohol intake frequency: 0-2 drinks per day Alcohol type: wine substance use type: does not use caffeine: Yes Type: coffee Number of servings: 1 what type of physical activity do you participate in: none seatbelt use: always do you feel safe at home: Yes ROS ROS ED ROS Narrative Right wrist redness. No recent illness. Constitutional Constitutional ED: Denies chills or fever(s) Eyes Eyes: Denies blurry vision ENT ENT ED: Denies ear pain Cardiovascular Cardiovascular: Denies chest pain Respiratory/Chest Respiratory/Chest: Denies cough or dyspnea Gastrointestinal Gastrointestinal: Denies abdominal pain Genitourinary Genitourinary ED: Denies dysuria or hematuria Musculoskeletal Musculoskeletal: Denies back pain Integumentary Denies abscess Neurologic Neurologic: Denies headache(s) Psychiatric Psychiatric: Denies anxiety or depression Endocrine Endocrinology: Denies cold intolerance Hematologic/Lymphatic Hematologic/Lymphatic: Denies easy bleeding Allergic/Immunologic Allergic/Immunologic ED: Denies mouth swelling EXAM Physical Exam Narrative Exam Narrative: 82-year-old female no acute distress vital signs stable afebrile. Does not look septic toxic. Accompanied by daughter. H EENT exam pupils round react light. Moist mutes membranes. Lungs clear to auscultation. Heart regular rhythm rate about 70 no murmur. Chest wall ribs nontender. Abdomen soft nontender. Moving all 4 extremities. Neurovascularly intact. Specifically right wrist redness over the dorsum and palmar aspect consistent with cellulitis. She is able to do flexion extension. No signs of septic joint. Minimal swelling. Right hand normal geodetic surveyor strength and sensation palpable radial pulse. Mild redness in the proximal and mid forearm. Elbow not involved normal range of motion no swelling. No axillary lymphadenopathy. No redness above the forearm. No crepitus no subcu air. No necrotic skin. She is awake alert. Const Vital Signs: 10/17/25 16:18 Temperature 97.7 F L Temperature Source Oral Pulse Rate 73 Respiratory Rate 16 Blood Pressure 155/73 H Blood Pressure Mean 100 Pulse Ox 99 Oxygen Delivery Method Room Air MDM MDM MDM Narrative Medical decision making narrative: 89-year-old female suspect cellulitis of the right forearm and wrist. I do not think she has a septic joint because she can move it and has limited discomfort. Labs will be drawn. She be started on IV clindamycin. She has a true penicillin allergy with a rash. X-ray to be obtained but there is been no trauma. Repeat exam patient doing well at 8:49 PM. I gave them the option of admission versus going home I think she would do fine at home she is comfortable and prefer to go home. She will be placed on clindamycin for 7 days. Outpatient follow-up with her primary care physician. Return obviously if the cellulitis is looking worse. She and family are comfortable to plan. History & Record Review Discussion w/independent historian: Patient Additional record(s) reviewed:: Prior inpatient record, Prior outpatient record, Prior ED visit and Prior labs Lab Data Attestation: I reviewed the patient's lab results. Lab results narrative: CBC shows a white count of 7. H&H 9 and 27 she has a baseline anemia. Platelets 153. Electrolytes show a gap of 10 BUN and creatinine of 40 and 2.4 consistent with her chronic kidney disease. Glucose 116. Uric acid is normal at 4. X-ray of the right wrist shows osteoarthritis and mild soft tissue swelling. Radiography Diagnostic Testing: Right wrist x-ray 3 views interpreted both by myself and the radiologist. Shows chronic changes. Osteoarthritis mild soft tissue swelling. No acute fracture. No gas in the soft tissues. Discharge Plan Triage Chief Complaint: Upper Extremity Injury ED Provider: Mele Wan Dx/Rx/DC Orders Clinical Impression: Cellulitis of right wrist, History of hypertension, Osteoarthritis Instructions: ED Cellulitis Prescriptions: New clindamycin HCl [Cleocin HCl] 300 mg capsule 300 mg PO TID 7 Days Qty: 21 0RF No Action clopidogrel 75 MG tablet 75 mg PO DAILY aspirin 81 MG tablet,chewable 81 mg PO DAILY@0800 albuterol sulfate 90 mcg/actuation aerosol powdr breath activated 2 inh inhalation Q6H PRN (Reason: shortness of breath or wheezing) docusate sodium [Colace] 100 mg capsule 100 mg PO BID Qty: 20 0RF ciprofloxacin HCl 250 mg tablet 250 mg PO DAILY Qty: 10 0RF oxycodone 5 mg tablet 5 mg PO Q6H PRN (Reason: pain) 7 Days Qty: 10 0RF metoprolol succinate 100 mg tablet extended release 24 hr 100 mg PO DAILY levothyroxine 25 mcg tablet 50 mcg PO DAILY rosuvastatin 40 mg tablet 40 mg PO DAILY losartan 50 mg tablet 50 mg PO DAILY Qty: 90 3RF Primary Care Provider: Angel Juan Referrals: Angel Juan MD [Primary Care Provider, Family Practice] - 3-5 Days Activity Restrictions/Additional Instructions: The antibiotic 3 times a day clindamycin for 1 week. Follow-up with your doctor to ensure this is improving. Return to the emergency department if the redness is getting worse coming up your arm, you feel worse or develop a fever. Tylenol for pain. Print Language: Indonesian Disposition Disposition: Home, Self Care
--- NOTE | 2025-10-17 18:50 | RAD_ITS ---
PROCEDURE: WRIST MIN 3 VIEWS 10/17/2025 REASON FOR EXAM: RIGHT WRIST CELLULITIS. NO TRAUMA. TECHNIQUE: Procedure Code: RADWR Modality: DX Procedure: WRIST MIN 3 VIEWS Laterality: Right COMPARISON: None. FINDINGS: BONES: No acute fracture or focal osseous lesion. Generalized osteopenia. Prior trapeziectomy with postsurgical change at the base of the first metacarpal. JOINTS: No dislocation. Multifocal degenerative changes. Chondrocalcinosis in the triangular fibrocartilage complex (TFCC). SOFT TISSUES: There is diffuse swelling in the wrist. Vascular calcifications present. RAD/Wrist min 3 Views IMPRESSION: 1. NO ACUTE OSSEOUS ABNORMALITY. 2. SOFT TISSUE SWELLING. 3. POLYARTICULAR OSTEOARTHROSIS. Reading Location: [id number]
[2025-10-17 19:30] LABS: Hematocrit 27.1 % (37-47); Hemoglobin 9.2 g/dL (12.0-15.0); Immature Granulocytes Count 0.010 X10^3/uL (0.0-0.0); Mean Corp Hgb Conc 33.9 g/dL (32-36); Mean Corpuscular Volume 94.1 fL (81-99); Mean Platelet Vol. 9.6 fl (6.2-12.0); NRBC Flagged by Analyzer 0 % (0-5); Platelet Count 153 K/mm3 (150-450); RBC Distribution Width CV 13.3 % (11.6-14.6); RBC Distribution Width SD 46.1 fl (35.1-43.9); Red Blood Count 2.88 M/mm3 (4.2-5.4); White Blood Count 7.4 K/mm3 (4.4-11.0)
[2025-10-17 19:47] LABS: Anion Gap 10 (5-15); BUN 40 mg/dL (4-19); BUN/Creat Ratio 16.4 RATIO (10-20); Calcium,Total 8.8 mg/dL (7.6-11.0); Carbon Dioxide 21.5 mmol/L (21.0-32.0); Chloride 107 mmol/L (98-108); Estimated Creatinine Clearance 12.08 ml/min (50-250); Glucose 116 mg/dL (70-99); Potassium 4.9 mmol/L (3.3-5.1)
[2025-10-17] MEDS: Clindamycin 900 MG/50 ML BAG 75 MG IV (19:54)
[2025-10-17 20:00] VITALS: BP 151/75; PULSE 62
[2025-10-17 20:09] LABS: Uric Acid 4.1 mg/dL (2.6-6.0)
[2025-10-17 20:50] VITALS: BP 166/70; PULSE 62; RESP 16; TEMP 36.5; O2SAT 99
== END 2025-10-17 20:57 | disposition home or self-care (01) ==
PROVIDERS: Emergency Provider Emergency Medicine; PCP Family Medicine; Visit Provider Emergency Medicine
DX: L03.113 Cellulitis of right upper limb (principal); Z86.718 Personal history of other venous thrombosis and embolism; Z86.73 Personal history of transient ischemic attack (TIA), and cerebral infarction without residual deficits
CPT/HCPCS: 73110; 80048; 84550; 85025; 96365; 99283; A4216

== ENCOUNTER → 2025-11-05 | Outpatient (CLI) | payer MEDICARE, OTHER, SELFPAY ==
--- NOTE | 2025-11-05 14:03 | RAD_ITS ---
PROCEDURE: KNEE 4 OR MORE VIEWS 11/05/2025 REASON FOR EXAM: R KNEE PAIN, INSTABILITY TECHNIQUE: Procedure Code: RADKN Modality: DX Procedure: KNEE 4 OR MORE VIEWS Laterality: Right COMPARISON: None FINDINGS: Status post total knee arthroplasty. The patellar, femoral and tibial components are normal apposition. There is no evidence of fracture. There is no knee joint effusion. There are vascular calcifications in the distal thigh and proximal calf. RAD/Knee 4 or More Views IMPRESSION: Normal-appearing right total knee arthroplasty. Reading Location: [place] [id number]
== END | disposition home or self-care (01) ==
LOC: MTRAD 14:02
PROVIDERS: PCP Family Medicine; Referring Provider Family Medicine; Visit Provider Family Medicine
DX: M25.561 Pain in right knee (principal)
CPT/HCPCS: 73564

== ENCOUNTER → 2025-11-07 | Outpatient (CLI) | payer MEDICARE, OTHER, SELFPAY ==
[2025-11-07 14:29] LABS: Mucous, Urine 0 SEEN /hpf (<or=2+)
[2025-11-07 17:47] LABS: PTHIN 114 pg/mL (11-61)
[2025-11-07 18:09] LABS: AST(SGOT) 35 U/L (<=31); Alanine Aminotransfer ALT/SGPT 26 U/L (<=34); Albumin, Serum 4.1 g/dL (3.4-4.8); Alkaline Phosphatase 62 U/L (35-104); Anion Gap 15 (5-15); BUN 39 mg/dL (4-19); BUN/Creat Ratio 17.1 RATIO (10-20); Calcium,Total 9.4 mg/dL (7.6-11.0); Carbon Dioxide 22.5 mmol/L (21.0-32.0); Chloride 104 mmol/L (98-108); Globulin 2.4 g/dL (2.2-4.2); Glucose 106 mg/dL (70-99); Iron 118 ug/dL (50-170); Potassium 4.3 mmol/L (3.3-5.1)
[2025-11-07 18:10] LABS: Hematocrit 29.1 % (37-47); Hemoglobin 9.4 g/dL (12.0-15.0); Immature Granulocytes Count 0.030 X10^3/uL (0.0-0.0); Mean Corp Hgb Conc 32.3 g/dL (32-36); Mean Corpuscular Volume 97.0 fL (81-99); Mean Platelet Vol. 10.3 fl (6.2-12.0); NRBC Flagged by Analyzer 0 % (0-5); Platelet Count 206 K/mm3 (150-450); RBC Distribution Width CV 12.8 % (11.6-14.6); RBC Distribution Width SD 45.2 fl (35.1-43.9); Red Blood Count 3.00 M/mm3 (4.2-5.4); White Blood Count 7.3 K/mm3 (4.4-11.0)
[2025-11-07 18:12] LABS: Vitamin D,25 Hydroxy 45.1 ng/mL (30-100)
[2025-11-07 18:38] LABS: Color, Urine Yellow (Yellow); Glucose, Dipstick Normal (Normal); Ketone-Dipstick Negative (Negative); Leukocyte Esterase-Dipstick 500 /ul (Negative); Nitrite-Dipstick Negative (Negative); Occult Blood-Urine 10 /ul (Negative); Protein-Dipstick 30 mg/dl (Negative); Specific Gravity, Urine 1.020 (1.002-1.030); Urine Bilirubin Dipstick Negative (Negative)
[2025-11-08 00:09] LABS: Red Blood Cells-Urine 0-5 SEEN /hpf (0-5)
[2025-11-08 00:10] LABS: Squamous Epithelial Cells - UA 5-10 SEEN /hpf (5-10)
[2025-11-09 07:07] LABS: Prealbumin 24 mg/dL (9-32)
== END | disposition home or self-care (01) ==
LOC: MTLAB 14:27
PROVIDERS: PCP Family Medicine; Referring Provider Family Medicine; Visit Provider Family Medicine
DX: N18.4 Chronic kidney disease, stage 4 (severe) (principal); E03.9 Hypothyroidism, unspecified; R63.4 Abnormal weight loss
CPT/HCPCS: 36415; 80053; 81001; 82306; 83540; 83970; 84134; 84439; 84443; 85025; 85652